=== PATIENT | male | born 1940 | race Caucasian/White ===

== ENCOUNTER 2019-06-11 11:36 | Outpatient (RCR) | payer MEDICARE, SELFPAY ==
--- NOTE | 2019-06-11 12:17 | PTOPEVAL ---
Thank you for referring this patient to [facility]. Please review, sign, date and return this plan of care [facility]. I agree with and certify that the following plan of care is medically necessary. Referring Physician Date Admitting Provider: Attending Provider: Leticia Handley MD Referring Provider: *PT Outpatient Evaluation Start: 06/11/19 11:54 Freq: Status: Active Protocol: Document 06/11/19 11:57 J (Rec: 06/11/19 12:16 [facility] [id number]) Therapy Assessment Status Assessment Status Assessment Status Evaluation Outpatient Past Medical History Past Medical History Reason Unable to Obtain see patient intake form Evaluation Information Problem Diagnosis parkinsons, unsteady gait Onset 06/05/19 Subjective Information patient reports he has been Query Text:As Reported By Patient/ alright lately. he reports no Family falls recently, but he has been to the MD who believes he could use some work on his balance and walking. he reports he does have parkinsons. he reports he does not use any assistive device for ambulation. Prior Level of Function Comments Additional Prior Level of Function patient reports he has been Comments diagnosed with parkinsons for about 1 year or so. he reports he may habe begun having symptoms a year prior. patient reports he has been limited or low energy lately. patient reports he does own a cane and has been using it infrequently on bad days or poor weather conditions. Pain Assessment Timing of Pain Assessment Timing of Pain Assessment Assessment Self Report Self Report Pain Level 0 Pain Score Pain Score 0: Self Report Lower Extremity Muscle Strength Testing Hip Strength Left Hip Flexion Strength 4 Good Hip Abduction Strength 4 Good Right Hip Flexion Strength 4 Good Hip Abduction Strength 4+ Good + Knee Strength Left Knee Flexion Strength 5 Normal Knee Extension Strength 4+ Good + Right Knee Flexion Strength 5 Normal Knee Extension Strength 4+ Good + Ankle Strength Left Ankle Dorsiflexion Strength 4+ Good + Ankle Plantarflexion Strength 4 Good Right Ankle Dorsiflexion Strength 5 Normal Ankle Plantarflexi
== END 2019-07-08 13:39 | disposition home or self-care (01) ==
LOC: CHSPT 11:36
PROVIDERS: PCP Internal Medicine; Visit Provider Internal Medicine
DX: G20 Parkinson's disease (principal); R26.81 Unsteadiness on feet
CPT/HCPCS: 97110; 97112; 97161; 97530

== ENCOUNTER 2019-11-11 07:03 | Outpatient (CLI) | payer MEDICARE, SELFPAY ==
[2019-11-11 07:19] LABS: Basophils Absolute Auto 0.06 K/mm3 (0.00-0.10); Eosinophils Absolute Auto 0.21 K/mm3 (0.02-0.50); Eosinophils Percent Auto 3.4 % (1.0-6.0); Hemoglobin 14.3 g/dL (12.4-15.3); Immature Granulocyte Absolute 0.03 K/mm3 (0.00-0.00); Immature Granulocyte Percent A 0.5 % (0.0-0.0); Lymphocytes Absolute Auto 2.33 K/mm3 (1.10-4.50); Mean Corpuscular HGB Conc 33.3 g/dL (32.0-36.0); Mean Corpuscular Hemoglobin 32.8 pg (27.0-31.0); Mean Corpuscular Volume 98.6 fL (78.0-102.0); Mean Platelet Volume 9.3 fl (8.7-11.0); Monocytes Absolute Auto 0.45 K/mm3 (0.10-0.90); Monocytes Percent Auto 7.3 % (2.0-11.0); Neutrophils Absolute Auto 3.1 K/mm3 (1.7-7.2); Neutrophils Percent Auto 49.8 % (50.0-70.0); Platelet Count Result 169 K/mm3 (150-420); Red Blood Count 4.36 M/mm3 (4.70-6.10); Red Cell Distribution Width 11.9 % (11.6-14.4); White Blood Count 6.1 K/mm3 (4.8-10.8)
[2019-11-11 07:20] LABS: Add Urine Microscopic? YES; Appearance Urine Clear (Clear); Bilirubin Urine Negative (Negative); Blood Urine Negative (Negative); Color Urine Yellow (Yellow); Glucose Urine UA Negative (Negative); Ketones Urine Negative (Negative); Leukocyte Esterase Ur Trace (Negative); Nitrate Urine Negative (Negative); Protein Urine Negative (Negative); pH Urine 7.5 (5.0-8.0)
[2019-11-11 07:28] LABS: Bacteria Urine Trace /hpf; Mucus Urine Few /lpf; RBC Urine 0-2 /hpf (0-2)
[2019-11-11 07:31] LABS: Hemoglobin A1C 5.6 % (<5.7)
[2019-11-11 09:19] LABS: Alanine Aminotransferase 37 U/L (16-63); Albumin Level 3.6 g/dL (3.4-5.0); Alkaline Phosphatase 77 U/L (46-116); Anion Gap 11.4 mmol/L (7-16); Aspartate Amino Transferase 26 U/L (15-37); Bilirubin,Total 0.5 mg/dL (0.00-1.00); Blood Urea Nitrogen 18 mg/dL (7-18); Calcium 8.7 mg/dL (8.5-10.1); Carbon Dioxide 29 mmol/L (21-32); Chloride 109 mmol/L (98-108); Cholesterol 130 mg/dL (0-200); Creatine Kinase 144 U/L (39-308); Estimated Glomerular Filt Rate > 60; Free T4 Free Thyroxine 0.91 ng/dL (0.76-1.46); Glucose 98 mg/dL (70-99); HDL Direct 40 mg/dL (40-60); LDL Cholesterol Calculated 73 mg/dL (<130); Osmolality Calculated 301 mOsm/kg (285-295); Potassium 4.4 mmol/L (3.5-5.1); Sodium 145 mmol/L (136-145); Thyroid Stimulating Hormone 2.68 uIU/mL (0.36-3.74); Total Protein 6.5 g/dL (6.4-8.2); Triglycerides 84 mg/dL (0-150)
== END 2019-11-11 07:04 | disposition home or self-care (01) ==
LOC: CHSLAB 07:05
PROVIDERS: PCP Internal Medicine; Visit Provider Internal Medicine
DX: E03.4 Atrophy of thyroid (acquired) (principal); I10 Essential (primary) hypertension; E78.2 Mixed hyperlipidemia; R73.01 Impaired fasting glucose; R53.83 Other fatigue
CPT/HCPCS: 36415; 80053; 80061; 81001; 82550; 83036; 84439; 84443; 85025

== ENCOUNTER 2019-11-27 14:05 | Outpatient (CLI) | payer MEDICARE, SELFPAY ==
[2019-11-27 15:03] LABS: BNP 27.9 pg/mL (0-100)
== END 2019-11-27 14:06 | disposition home or self-care (01) ==
PROVIDERS: PCP Internal Medicine; Visit Provider Internal Medicine
DX: I50.9 Heart failure, unspecified (principal)
CPT/HCPCS: 36415; 83880

== ENCOUNTER 2019-12-15 12:00 | Outpatient (CLI) | payer MEDICARE, SELFPAY ==
--- NOTE | ~2019-12-15 | US_ITS ---
EXAMINATION: US venous doppler [facility] DATE: 12/15/2019 12:34 INDICATION: Lower limb localized edema. TECHNIQUE: Grayscale ultrasound images without and with compression and Doppler ultrasound images of the bilateral lower extremity veins were obtained. COMPARISON: Ultrasound 03/13/2016 FINDINGS: The visualized portions of right common femoral vein, profunda (deep) femoral vein, femoral vein, pop liteal vein, peroneal veins, posterior tibial veins, and greater saphenous vein outflow are patent. The visualized portions of left common femoral vein, profunda femoral vein, femoral vein, popliteal v ein, peroneal veins, posterior tibial veins, and greater saphenous vein outflow are patent. IMPRESSION: 1. No deep venous thrombosis. Reviewed, dictated and finalized at location B.
== END 2019-12-15 12:01 | disposition home or self-care (01) ==
LOC: CHSIMG 12:02
PROVIDERS: PCP Internal Medicine; Visit Provider Internal Medicine Cardiovascular Disease
DX: R60.0 Localized edema (principal)
CPT/HCPCS: 93970

== ENCOUNTER 2020-05-06 07:07 | Outpatient (CLI) | payer MEDICARE, SELFPAY ==
[2020-05-06 07:16] LABS: Basophils Absolute Auto 0.07 K/mm3 (0.00-0.10); Basophils Percent Auto 1.2 % (0.0-1.0); Eosinophils Absolute Auto 0.19 K/mm3 (0.02-0.50); Eosinophils Percent Auto 3.3 % (1.0-6.0); Hematocrit 42.1 % (37.0-46.0); Immature Granulocyte Absolute 0.04 K/mm3 (0.00-0.00); Immature Granulocyte Percent A 0.7 % (0.0-0.0); Lymphocytes Absolute Auto 2.19 K/mm3 (1.10-4.50); Lymphocytes Percent Auto 37.8 % (18.0-42.0); Mean Corpuscular HGB Conc 33.3 g/dL (32.0-36.0); Mean Corpuscular Hemoglobin 31.9 pg (27.0-31.0); Mean Corpuscular Volume 95.9 fL (78.0-102.0); Monocytes Absolute Auto 0.36 K/mm3 (0.10-0.90); Monocytes Percent Auto 6.2 % (2.0-11.0); Neutrophils Percent Auto 50.8 % (50.0-70.0); Platelet Count Result 154 K/mm3 (150-420); Red Blood Count 4.39 M/mm3 (4.70-6.10); Red Cell Distribution Width 11.9 % (11.6-14.4); White Blood Count 5.8 K/mm3 (4.8-10.8)
[2020-05-06 07:21] LABS: Add Urine Microscopic? NO; Appearance Urine Clear (Clear); Bilirubin Urine Negative (Negative); Blood Urine Negative (Negative); Color Urine Yellow (Yellow); Glucose Urine UA Negative (Negative); Ketones Urine Negative (Negative); Leukocyte Esterase Ur Negative (Negative); Nitrate Urine Negative (Negative); Protein Urine Negative (Negative); Urobilinogen Urine 0.2 mg/dL (0.2-1.0)
[2020-05-06 07:31] LABS: Hemoglobin A1C 4.9 % (<5.7)
[2020-05-06 07:38] LABS: BNP 53.1 pg/mL (0-100)
[2020-05-06 08:03] LABS: Alanine Aminotransferase 40 U/L (16-63); Albumin Level 3.9 g/dL (3.4-5.0); Alkaline Phosphatase 86 U/L (46-116); Anion Gap 10 mmol/L (8-16); Aspartate Amino Transferase 21 U/L (15-37); Bilirubin,Total 0.6 mg/dL (0.00-1.00); Blood Urea Nitrogen 20 mg/dL (7-18); Calcium 8.9 mg/dL (8.5-10.1); Carbon Dioxide 25 mmol/L (21-32); Chloride 104 mmol/L (98-108); Cholesterol 131 mg/dL (0-200); Estimated Glomerular Filt Rate > 60; Free T3 2.39 pg/mL (2.18-3.98); Free T4 Free Thyroxine 0.94 ng/dL (0.76-1.46); Glucose 101 mg/dL (70-99); HDL Direct 43 mg/dL (40-60); LDL Cholesterol Calculated 69 mg/dL (<130); Osmolality Calculated 290 mOsm/kg (285-295); Potassium 4.1 mmol/L (3.5-5.1); Sodium 139 mmol/L (136-145); Thyroid Stimulating Hormone 3.33 uIU/mL (0.36-3.74); Triglycerides 97 mg/dL (0-150)
== END 2020-05-06 07:08 | disposition home or self-care (01) ==
LOC: CHSLAB 07:09
PROVIDERS: PCP Internal Medicine; Visit Provider Internal Medicine
DX: R53.82 Chronic fatigue, unspecified (principal); I10 Essential (primary) hypertension; E78.2 Mixed hyperlipidemia; E03.4 Atrophy of thyroid (acquired); R73.01 Impaired fasting glucose; R60.0 Localized edema; I50.9 Heart failure, unspecified
CPT/HCPCS: 36415; 80053; 80061; 81003; 83036; 83880; 84439; 84443; 84481; 85025

== ENCOUNTER 2020-05-18 10:48 | Outpatient (RCR) | payer MEDICARE, SELFPAY ==
--- NOTE | 2020-05-18 12:07 | PTOPEVAL ---
Thank you for referring Alli Eagle to [facility].? The patient is scheduled to be seen for therapy? ___3_x/week for 12 visits. Please review, sign, date and return this plan of care YUDI. I agree with and certify that the following plan of care is medically necessary. Referring Physician Date Admitting Provider: Attending Provider: Leticia Handley MD Referring Provider: *PT Outpatient Evaluation Start: 05/18/20 10:58 Freq: Status: Active Protocol: Document 05/18/20 11:01 [facility] (Rec: 05/18/20 12:07 [facility] [id number]) Therapy Assessment Status Assessment Status Assessment Status Evaluation Evaluation Information Problem Diagnosis PD, ataxia Onset 04/06/19 Subjective Information Pt. reports that he was Query Text:As Reported By Patient/ diagnosed with PD in [facility] of 2019. He reports that he has seen a steady decline in balance and strength over the past year. He states that he has had no recent falls, but states that he stumbles often. He states that his last fall is 2 years ago, after he tripped over an object. He states that his goal is to improve his balance and improve his walking. 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 reports that he does have Comments a shop at his home and tries to get into it everyday. He states that he does light yardwork, but fatigues easily and moves very slowly. Pain Assessment Self Report Self Report Pain Level 0 Pain Score Pain Score 0: Self Report Lower Extremity Muscle Strength Testing General Lower Extremity Strength Gross Lower Extremity Strength right hip flexion 5/5 left hip flexion 4+/5 right hip extensio
== END 2020-06-11 15:23 | disposition home or self-care (01) ==
LOC: CHSPT 10:48
PROVIDERS: PCP Internal Medicine; Visit Provider Internal Medicine
DX: G20 Parkinson's disease (principal); R27.0 Ataxia, unspecified
CPT/HCPCS: 97110; 97112; 97161; 97530

== ENCOUNTER 2020-05-25 09:07 | Outpatient (CLI) | payer MEDICARE, SELFPAY ==
[2020-05-25 10:09] LABS: Anion Gap 7 mmol/L (8-16); Blood Urea Nitrogen 21 mg/dL (7-18); Calcium 8.9 mg/dL (8.5-10.1); Carbon Dioxide 31 mmol/L (21-32); Chloride 102 mmol/L (98-108); Estimated Glomerular Filt Rate > 60; Glucose 88 mg/dL (70-99); Osmolality Calculated 292 mOsm/kg (285-295); Potassium 4.4 mmol/L (3.5-5.1); Sodium 140 mmol/L (136-145)
== END 2020-05-25 09:08 | disposition home or self-care (01) ==
LOC: CHSLAB 09:09
PROVIDERS: PCP Internal Medicine; Visit Provider Internal Medicine Cardiovascular Disease
DX: E11.59 Type 2 diabetes mellitus with other circulatory complications (principal); I10 Essential (primary) hypertension
CPT/HCPCS: 36415; 80048

== ENCOUNTER 2020-11-09 07:02 | Outpatient (CLI) | payer MEDICARE, SELFPAY ==
[2020-11-09 07:17] LABS: Basophils Absolute Auto 0.08 K/mm3 (0.00-0.10); Basophils Percent Auto 1.4 % (0.0-1.0); Eosinophils Absolute Auto 0.23 K/mm3 (0.02-0.50); Hematocrit 41.4 % (37.0-46.0); Immature Granulocyte Absolute 0.02 K/mm3 (0.00-0.00); Immature Granulocyte Percent A 0.3 % (0.0-0.0); Lymphocytes Absolute Auto 2.22 K/mm3 (1.10-4.50); Lymphocytes Percent Auto 38.4 % (18.0-42.0); Mean Corpuscular HGB Conc 33.8 g/dL (32.0-36.0); Mean Corpuscular Hemoglobin 32.4 pg (27.0-31.0); Mean Corpuscular Volume 95.8 fL (78.0-102.0); Monocytes Absolute Auto 0.41 K/mm3 (0.10-0.90); Monocytes Percent Auto 7.1 % (2.0-11.0); Neutrophils Absolute Auto 2.8 K/mm3 (1.7-7.2); Neutrophils Percent Auto 48.8 % (50.0-70.0); Platelet Count Result 162 K/mm3 (150-420); Red Blood Count 4.32 M/mm3 (4.70-6.10); Red Cell Distribution Width 11.9 % (11.6-14.4); White Blood Count 5.8 K/mm3 (4.8-10.8)
[2020-11-09 07:18] LABS: Add Urine Microscopic? YES; Appearance Urine Clear (Clear); Bilirubin Urine Negative (Negative); Blood Urine Negative (Negative); Color Urine Light Yellow (Yellow); Glucose Urine UA Negative (Negative); Ketones Urine Negative (Negative); Leukocyte Esterase Ur 1+ (Negative); Nitrate Urine Negative (Negative); Protein Urine Negative (Negative); pH Urine 7.5 (5.0-8.0)
[2020-11-09 07:22] LABS: Bacteria Urine Trace /hpf; RBC Urine None seen /hpf (0-2)
[2020-11-09 07:29] LABS: Creatinine Urine 158.06 mg/dL (40-278); MALB Creatinine Ratio 14.1 mg/g (0-30); Microalbumin Urine Random 22.4 mg/L
[2020-11-09 07:36] LABS: Hemoglobin A1C 5.1 % (<5.7)
[2020-11-09 08:22] LABS: Alanine Aminotransferase 27 U/L (16-63); Albumin Level 3.7 g/dL (3.4-5.0); Alkaline Phosphatase 90 U/L (46-116); Anion Gap 12 mmol/L (8-16); Aspartate Amino Transferase 17 U/L (15-37); Bilirubin,Total 0.5 mg/dL (0.00-1.00); Blood Urea Nitrogen 22 mg/dL (7-18); Calcium 8.9 mg/dL (8.5-10.1); Carbon Dioxide 26 mmol/L (21-32); Chloride 109 mmol/L (98-108); Cholesterol 107 mg/dL (0-200); Creatine Kinase 99 U/L (39-308); Estimated Glomerular Filt Rate > 60; Glucose 101 mg/dL (70-99); HDL Direct 34 mg/dL (40-60); LDL Cholesterol Calculated 57 mg/dL (<130); NT Pro B Type Natriuretic Pept 193 pg/mL (0-450); Osmolality Calculated 307 mOsm/kg (285-295); Potassium 4.2 mmol/L (3.5-5.1); Sodium 147 mmol/L (136-145); Total Protein 6.6 g/dL (6.4-8.2); Triglycerides 79 mg/dL (0-150)
== END 2020-11-09 07:03 | disposition home or self-care (01) ==
LOC: CHSLAB 07:04
PROVIDERS: PCP Internal Medicine; Visit Provider Internal Medicine
DX: G20 Parkinson's disease (principal); R73.01 Impaired fasting glucose; I10 Essential (primary) hypertension; E78.2 Mixed hyperlipidemia; E03.4 Atrophy of thyroid (acquired); I50.9 Heart failure, unspecified
CPT/HCPCS: 36415; 80053; 80061; 81001; 82043; 82550; 83036; 83880; 84439; 84443; 84481; 85025

== ENCOUNTER 2020-12-27 06:55 | Outpatient (CLI) | payer MEDICARE, SELFPAY ==
[2020-12-27 08:04] LABS: Anion Gap 10 mmol/L (8-16); Blood Urea Nitrogen 20 mg/dL (7-18); Calcium 8.8 mg/dL (8.5-10.1); Carbon Dioxide 26 mmol/L (21-32); Chloride 105 mmol/L (98-108); Estimated Glomerular Filt Rate > 60; Glucose 96 mg/dL (70-99); Osmolality Calculated 294 mOsm/kg (285-295); Potassium 4.3 mmol/L (3.5-5.1); Sodium 141 mmol/L (136-145)
== END 2020-12-27 06:56 | disposition home or self-care (01) ==
LOC: CHSLAB 06:57
PROVIDERS: PCP Internal Medicine; Visit Provider Internal Medicine
DX: I10 Essential (primary) hypertension (principal)
CPT/HCPCS: 36415; 80048

== ENCOUNTER 2021-04-12 12:56 | Outpatient (CLI) | payer MEDICARE, SELFPAY ==
--- NOTE | ~2021-04-12 | XR_ITS ---
EXAMINATION: XR hip RT min 2V EXAM DATE: 04/12/2021 13:30 INDICATION: R hip pain, leg edema for 2 weeks starting at the lower back. TECHNIQUE: Right hip frontal, crosstable lateral and 'frog-leg' projections for interpretation. Jean Carlos rison is made to prior examination from 12/14/2015. FINDINGS: Smooth right hip femoral head contour, no radiographic evidence of avascular necrosis. The re is moderate primary osteoarthritis. Scattered vascular calcifications, arterial sclerosis. There is right hip replacement hardware. IMPRESSION: Moderate right hip osteoarthritis. Reviewed, dictated and finalized at location A. N BARREL FILLER
[2021-04-12 13:09] LABS: Basophils Absolute Auto 0.09 K/mm3 (0.00-0.10); Basophils Percent Auto 1.3 % (0.0-1.0); Eosinophils Absolute Auto 0.18 K/mm3 (0.02-0.50); Eosinophils Percent Auto 2.7 % (1.0-6.0); Hematocrit 40.2 % (37.0-46.0); Hemoglobin 13.8 g/dL (12.4-15.3); Immature Granulocyte Absolute 0.02 K/mm3 (0.00-0.00); Immature Granulocyte Percent A 0.3 % (0.0-0.0); Lymphocytes Absolute Auto 1.91 K/mm3 (1.10-4.50); Lymphocytes Percent Auto 28.3 % (18.0-42.0); Mean Corpuscular HGB Conc 34.3 g/dL (32.0-36.0); Mean Corpuscular Hemoglobin 32.4 pg (27.0-31.0); Mean Corpuscular Volume 94.4 fL (78.0-102.0); Mean Platelet Volume 9.2 fl (8.7-11.0); Monocytes Absolute Auto 0.38 K/mm3 (0.10-0.90); Monocytes Percent Auto 5.6 % (2.0-11.0); Neutrophils Absolute Auto 4.2 K/mm3 (1.7-7.2); Neutrophils Percent Auto 61.8 % (50.0-70.0); Platelet Count Result 180 K/mm3 (150-420); Red Blood Count 4.26 M/mm3 (4.70-6.10); Red Cell Distribution Width 12.1 % (11.6-14.4); White Blood Count 6.8 K/mm3 (4.8-10.8)
[2021-04-12 14:23] LABS: Alanine Aminotransferase 14 U/L (16-63); Albumin Level 3.6 g/dL (3.4-5.0); Alkaline Phosphatase 94 U/L (46-116); Anion Gap 10 mmol/L (8-16); Aspartate Amino Transferase 16 U/L (15-37); Bilirubin,Total 0.5 mg/dL (0.00-1.00); Blood Urea Nitrogen 19 mg/dL (7-18); Calcium 8.6 mg/dL (8.5-10.1); Carbon Dioxide 29 mmol/L (21-32); Chloride 103 mmol/L (98-108); Estimated Glomerular Filt Rate > 60; Free T3 2.56 pg/mL (2.18-3.98); Free T4 Free Thyroxine 0.84 ng/dL (0.76-1.46); Glucose 120 mg/dL (70-99); Osmolality Calculated 297 mOsm/kg (285-295); Potassium 4.2 mmol/L (3.5-5.1); Sodium 142 mmol/L (136-145); Thyroid Stimulating Hormone 3.38 uIU/mL (0.36-3.74); Total Protein 6.7 g/dL (6.4-8.2)
== END 2021-04-12 12:57 | disposition home or self-care (01) ==
LOC: CHSIMG 12:58
PROVIDERS: PCP Internal Medicine; Visit Provider Internal Medicine
DX: R60.0 Localized edema (principal); E03.9 Hypothyroidism, unspecified; M25.551 Pain in right hip
CPT/HCPCS: 36415; 73502; 80053; 84439; 84443; 84481; 85025

== ENCOUNTER 2021-05-24 07:22 | Outpatient (CLI) | payer MEDICARE, SELFPAY ==
[2021-05-24 07:35] LABS: Basophils Absolute Auto 0.07 K/mm3 (0.00-0.10); Basophils Percent Auto 1.2 % (0.0-1.0); Eosinophils Absolute Auto 0.23 K/mm3 (0.02-0.50); Eosinophils Percent Auto 4.1 % (1.0-6.0); Hematocrit 43.9 % (37.0-46.0); Hemoglobin 14.6 g/dL (12.4-15.3); Immature Granulocyte Absolute 0.02 K/mm3 (0.00-0.00); Immature Granulocyte Percent A 0.4 % (0.0-0.0); Mean Corpuscular HGB Conc 33.3 g/dL (32.0-36.0); Mean Corpuscular Hemoglobin 32.2 pg (27.0-31.0); Mean Corpuscular Volume 96.9 fL (78.0-102.0); Mean Platelet Volume 9.3 fl (8.7-11.0); Monocytes Absolute Auto 0.46 K/mm3 (0.10-0.90); Monocytes Percent Auto 8.1 % (2.0-11.0); Neutrophils Absolute Auto 3.2 K/mm3 (1.7-7.2); Neutrophils Percent Auto 56.2 % (50.0-70.0); Platelet Count Result 161 K/mm3 (150-420); Red Blood Count 4.53 M/mm3 (4.70-6.10); Red Cell Distribution Width 11.8 % (11.6-14.4); White Blood Count 5.7 K/mm3 (4.8-10.8)
[2021-05-24 07:38] LABS: Add Urine Microscopic? YES; Appearance Urine Clear (Clear); Bilirubin Urine Negative (Negative); Blood Urine Negative (Negative); Color Urine Yellow (Yellow); Glucose Urine UA Negative (Negative); Ketones Urine Negative (Negative); Leukocyte Esterase Ur Trace (Negative); Nitrate Urine Negative (Negative); Protein Urine Trace (Negative); Urobilinogen Urine 0.2 mg/dL (0.2-1.0)
[2021-05-24 07:48] LABS: Hemoglobin A1C 5.2 % (<5.7)
[2021-05-24 08:07] LABS: Bacteria Urine None seen /hpf; Mucus Urine Rare /lpf; RBC Urine None seen /hpf (0-2); WBC Urine 0-3 /hpf (0-3)
[2021-05-24 09:14] LABS: Alanine Aminotransferase 28 U/L (16-63); Albumin Level 3.7 g/dL (3.4-5.0); Alkaline Phosphatase 93 U/L (46-116); Anion Gap 7 mmol/L (8-16); Aspartate Amino Transferase 16 U/L (15-37); Bilirubin,Total 0.5 mg/dL (0.00-1.00); Blood Urea Nitrogen 22 mg/dL (7-18); Calcium 8.9 mg/dL (8.5-10.1); Carbon Dioxide 28 mmol/L (21-32); Chloride 108 mmol/L (98-108); Cholesterol 117 mg/dL (0-200); Creatine Kinase 102 U/L (39-308); Estimated Glomerular Filt Rate > 60; Free T3 2.28 pg/mL (2.18-3.98); Free T4 Free Thyroxine 0.92 ng/dL (0.76-1.46); Glucose 100 mg/dL (70-99); HDL Direct 40 mg/dL (40-60); LDL Cholesterol Calculated 63 mg/dL (<130); Osmolality Calculated 299 mOsm/kg (285-295); Potassium 4.5 mmol/L (3.5-5.1); Sodium 143 mmol/L (136-145); Thyroid Stimulating Hormone 2.63 uIU/mL (0.36-3.74); Total Protein 6.8 g/dL (6.4-8.2); Triglycerides 69 mg/dL (0-150)
== END 2021-05-24 07:23 | disposition home or self-care (01) ==
LOC: CHSLAB 07:24
PROVIDERS: PCP Internal Medicine; Visit Provider Internal Medicine
DX: R73.01 Impaired fasting glucose (principal); E78.2 Mixed hyperlipidemia; I10 Essential (primary) hypertension; E03.4 Atrophy of thyroid (acquired)
CPT/HCPCS: 36415; 80053; 80061; 81001; 82550; 83036; 84439; 84443; 84481; 85025

== ENCOUNTER 2021-05-31 14:21 | Outpatient (CLI) | payer MEDICARE, SELFPAY ==
--- NOTE | ~2021-05-31 | XR_ITS ---
XR lumbar spine 2-3V 05/31/2021 15:02 Indication: Low back pain Procedure: 3 views lumbar spine Comparison: 09/26/2010 Findings: There is loss of disc height at all lumbar levels. There is multilevel facet hypertrophy. T here are prominent marginal osteophytes at multiple levels. There is grade 1 degenerative spondylolis thesis at L4-5. There is atherosclerosis of the aorta. Sacral foramen are symmetric. There is atheros clerosis of the aorta. Impression: 1: Severe lumbar spondylosis. Reviewed, dictated and finalized at location B. BOLTER Impression: 1: Severe lumbar spondylosis.
--- NOTE | ~2021-05-31 | XR_ITS ---
XR sacroiliac joints min 3V DATE: 05/31/2021 15:02 INDICATION: Low back pain. Sciatica. TECHNIQUE: 4 views COMPARISON: None FINDINGS: There is bony bridging along the superior aspect of the pubic symphysis. The sacral iliac joints are normal. No erosive change or ankylosis. Status post left total hip arthroplasty. Degenerative disc disease at L3-4, L4-5 and L5-S1. 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 Reviewed, dictated and finalized at location A. H COLORS EXAMINER
== END 2021-05-31 14:22 | disposition home or self-care (01) ==
LOC: CHSIMG 14:23
PROVIDERS: PCP Internal Medicine; Visit Provider Internal Medicine
DX: M54.50 Low back pain, unspecified (principal)
CPT/HCPCS: 72100; 72202

== ENCOUNTER 2021-06-04 09:38 | Outpatient (CLI) | payer MEDICARE, SELFPAY ==
--- NOTE | ~2021-06-04 | MR_ITS ---
EXAMINATION: MR lumbar spine wo con DATE: 06/04/2021 10:21 INDICATION: Low back pain. TECHNIQUE: Magnetic resonance imaging (MRI) of the lumbar spine was performed without intravenous con trast. Sequences included sagittal T2-weighted FSE, sagittal T2-weighted FS FSE, sagittal T1-weighted FSE, and axial T2-weighted FSE. COMPARISON: Lumbar spine radiographs 05/31/2021 FINDINGS: There is 4 degrees levocurvature of lumbar spine. There is 3 mm anterolisthesis of L4 on L5 . Vertebral body heights are normal. There is severely decreased disc height at L2-L3 and L3-L4, mild ly decreased disc height at L4-L5, and severely decreased disc height at L5-S1 with endplate remodeli ng. The distal spinal cord signal intensity is normal. The conus medullaris is at L2. There are cysts in the kidneys including peripelvic cysts. The following disc levels are specifically discussed: L1-L2: The disc is mildly bulging. There is mild bilateral facet joint osteoarthritis. There is mild bilateral neural foraminal stenosis. There is no central canal stenosis. L2-L3: The disc is bulging and has an annular fissure. There is severe bilateral facet joint osteoart hritis. There is mild right and moderate left neural foraminal stenosis. There is mild central canal stenosis. L3-L4: The disc is bulging and has an annular fissure. There is severe bilateral facet joint osteoart hritis. There is mild right and moderate left neural foraminal stenosis. There is mild central canal stenosis. L4-L5: The disc is bulging. There is severe bilateral facet joint osteoarthritis. There is moderate r ight and mild left neural foraminal stenosis. There is mild central canal stenosis. There is severe s tenosis of right lateral recess. L5-S1: The disc is bulging and has an annular fissure. There is severe bilateral facet joint osteoart hritis. There is mild bilateral neural foraminal stenosis. There is mild central canal stenosis. IMPRESSION: 1. Severe lumbar spondylosis. Reviewed, dictated and finalized at location A. SINGER
== END 2021-06-04 09:39 | disposition home or self-care (01) ==
LOC: CHSIMG 09:39
PROVIDERS: PCP Internal Medicine; Visit Provider Internal Medicine
DX: M54.50 Low back pain, unspecified (principal)
CPT/HCPCS: 72148

== ENCOUNTER 2021-07-15 10:57 | Emergency (ER) | payer MEDICARE, SELFPAY ==
--- NOTE | ~2021-07-15 | XR_ITS ---
EXAMINATION: XR lumbar spine 2-3V DATE: 07/15/2021 11:52 INDICATION: Low back pain. TECHNIQUE: 3 views of lumbar spine were obtained. COMPARISON: Lumbar spine radiographs 05/31/2021 FINDINGS: There is 3 degrees dextrocurvature of lumbar spine. There is 3 mm anterolisthesis of L4 on L5. Vertebral body heights are normal. There is mildly decreased disc height at L2-L3 and L4-L5 and s everely decreased disc height at L3-L4 and L5-S1. There are endplate osteophytes at all levels. There is multilevel severe facet joint osteoarthritis. There is a total left hip arthroplasty. IMPRESSION: 1. Severe lumbar spondylosis. Reviewed, dictated and finalized at location A. SACTION COORDINATOR
--- NOTE | 2021-07-15 11:17 | ED.GENADULT ---
HPI - General Adult General Chief complaint: Back Pain/Injury Stated complaint: back pain Source: patient and family Mode of arrival: ambulatory Limitations: no limitations History of Present Illness HPI narrative: Alli is a 80M with a PMH of hypothyroidism, HTN, BPH, CT and chronic back pain with surgery 15 years ago that presented to the ED with back pain. His chronic pain got worse and he cannot get it to go away. He even took 2 10/325 [place] tabs which did not help. It is worse with twisting and better with sitting still. He denies any loss of bowel or bladder control or lower extremity weakness or paralysis. Related Data Home Medications Medication Instructions Recorded Confirmed atorvastatin 20 mg DAILY 07/15/21 07/15/21 bimatoprost [Lumigan] 1 drp HS 07/15/21 07/15/21 carbidopa-levodopa 1 tablet QID 07/15/21 07/15/21 clopidogrel 75 mg DAILY 07/15/21 07/15/21 furosemide 20 mg DAILY 07/15/21 07/15/21 hydrocodone-acetaminophen 1 tablet Q4-6H 07/15/21 07/15/21 levothyroxine 75 mcg DAILY 07/15/21 07/15/21 metoprolol tartrate 12.5 mg BID 07/15/21 07/15/21 pramipexole 1 mg BID 07/15/21 07/15/21 terazosin 10 mg DAILY 07/15/21 07/15/21 Allergies Allergy/AdvReac Type Severity Reaction Status Date / Time No Known Allergies Allergy Verified 07/15/21 11:11 Review of Systems Constitutional: Constitutional: Reports no additional constitutional complaints Eyes: Eyes: Reports no additional eye complaints ENT: Reports system reviewed and no additional complaints, except as documented Cardiovascular: Cardiovascular: Reports no additional cardiovascular complaints Respiratory: Respiratory: Reports no additional respiratory complaints Gastrointestinal: Gastrointestinal: Reports no additional gastrointestinal complaints Genitourinary: Genitourinary: Reports no additional male genitourinary complaints Musculoskeletal: Musculoskeletal: Reports as per HPI Integumentary/Breasts: Skin/Breast: Reports system reviewed and no additional complaints, except as docu Neurologic: Reports system reviewed and no additional complaints, except as documented Psychiatric: Psychiatric: Reports no additional psychiatric complaints Endocrine: Endocrine: Reports no additional endocrine complaints Hematologic/Lymphatic: Hematologic/Lymphatic: Reports no additional hematologic/lymphatic complaints Allergic/Immunologic: Allergic/Immunologic: Reports no additional allergic/immunologic complaints [facility] Family History Family History Other Cerebrovascular accident Family history of arthritis Hypertension Social History Social History Smoking status: Never smoker Exam Const: General: no acute distress and alert Orientation/consciousness: patient oriented x3 Limitations: No altered mental status HENMT: Head: normal to inspection Other: atraumatic Eyes: Pupils: Equal, round and reactive pupils present Neck: Neck: normal visual inspection Chest: Chest palpation & inspection: normal inspection of the chest Resp: Effort & Inspection: normal respiratory effort Cardio: Rate: regular rate Back/Spine/Pelvis: Back: no CVA tenderness Other: No midline tenderness. She had hypertonic musculature on the paraspinal muscles particularly in the right lumbar region. Skin: General skin exam: normal color Rashes: no rashes Neuro: General: patient oriented x3 and moves all extremities Other: 5/5 strength throughout the lower extremities. No sensory deficits. Extrem: General: normal to inspection Psych: Mental Status: mental status grossly normal Course Course Emergency Course: EXAMINATION: XR lumbar spine 2-3V DATE: 07/15/2021 11:52 INDICATION: Low back pain. TECHNIQUE: 3 views of lumbar spine were obtained. COMPARISON: Lumbar spine radiographs 05/31/2021 FINDINGS: There is 3 degrees dextrocurvature of lumbar spine. T
[2021-07-15 11:21] VITALS: BP 158/83; PULSE 72; RESP 18; TEMP 36.3; O2SAT 98
[2021-07-15] MEDS: KETOROLAC 30 MG/ML VIAL (*BKC) IM (11:37)
[2021-07-15] MEDS: CYCLOBENZAPRINE HCL 10 MG TABLET PO (11:38)
--- NOTE | 2021-07-15 12:24 | PC.NURSE ---
Pt ambulatory to nurse's station and back to room without difficulty. Pt moving slowly, but states that he is able to move easier since the medications were administered. ERP aware.
[2021-07-15 12:32] VITALS: BP 120/66; PULSE 70; RESP 16; TEMP 36.3; O2SAT 96
== END 2021-07-15 12:38 | disposition home or self-care (01) ==
PROVIDERS: Emergency Provider Family Medicine; PCP Internal Medicine
DX: M47.9 Spondylosis, unspecified (principal); I10 Essential (primary) hypertension
CPT/HCPCS: 72100; 96372; 99283; A9270; J1885

== ENCOUNTER 2021-07-19 07:59 | Outpatient (RCR) | payer MEDICARE, SELFPAY ==
--- NOTE | 2021-07-19 09:01 | PTOPEVAL ---
Thank you for referring Alli Eagle to [facility].? The patient is scheduled to be seen for therapy? __3__x/week for 12 visits. Please review, sign, date and return this plan of care YUDI. I agree with and certify that the following plan of care is medically necessary. Referring Physician Date Admitting Provider: Attending Provider: Leticia Handley MD Referring Provider: *PT Outpatient Evaluation Start: 07/19/21 07:53 Freq: Status: Active Protocol: Document 07/19/21 07:53 [facility] (Rec: 07/19/21 09:00 [facility] [id number]) Therapy Assessment Status Assessment Status Assessment Status Evaluation Evaluation Information Problem Diagnosis generalized weakness, unsteady gait Onset 06/16/21 Subjective Information Pt. reports that he has Query Text:As Reported By Patient/ recently noticed some Family unsteadiness with walking. He states that he has also developed some recent pain into the low back on the right side and into the buttock. He reports that back pain makes walking difficult. He has not had any recent falls but has frequent episodes of LOB. He reports that he is currently using a cane and has been for several months. He reports that he has concern regarding both balance and pain. He reports that his goal is to improve his walking and balance and decrease his pain. Prior Level of Function Activity Level (Last 3 Months) Occupation retired Hand Dominance Right Activity of Daily Living Ability Independent Indoor/Home Mobility Independent Community Mobility Independent Stairs Ability Independent Functional Cognition (Planning, Shopping Independent , Taking Medications) Cooking Yes Cleaning Yes Laundry Yes Shopping Yes Driving Yes Comments Additional Prior Level of Function He reports that his has Comments been helping with putting his socks on over the past week. Pain Assessment Timing of Pain Assessment Timing of Pain Assessment Pre-Treatment Pain Scale Pain Scale Used
--- NOTE | 2021-08-24 17:05 | PTOPEVAL ---
Thank you for referring Alli Eagle to [facility].? The patient is scheduled to be seen for therapy? ____x/week for ___ weeks. Please review, sign, date and return this plan of care YUDI. I agree with and certify that the following plan of care is medically necessary. Referring Physician Date Admitting Provider: Attending Provider: Leticia Handley MD Referring Provider: *PT Outpatient Evaluation Start: 07/19/21 07:53 Freq: Status: Active Protocol: Document 08/23/21 10:00 [facility] (Rec: 08/24/21 17:02 [facility] [id number]) Therapy Assessment Status Assessment Status Assessment Status Discharge Evaluation Information Problem Diagnosis generalized weakness, unsteady gait Onset 06/16/21 Subjective Information patient continues to report no Query Text:As Reported By Patient/ falls. he has not been using Family a cane or any AD for ambulation as he says he will forget it where he is standing . he reports he is ready to DC therapy and return to fall prevention class. Pain Assessment Timing of Pain Assessment Timing of Pain Assessment Assessment Pain Scale Pain Scale Used Numeric (1 - 10) Self Report Pain Assessment Lower Back Reported Pain Level 2 Pain Score Pain Score 2: Self Report Interventions Used Interventions Used By Clinicians Activity or ADL's,Education, Electrical Stimulation, Exercise,Heat Lower Extremity Muscle Strength Testing General Lower Extremity Strength Gross Lower Extremity Strength -bilateral hip flexion 4+/5 -bilateral hip abduction 4-/5 -bilateral knee flexion 5/5 -bilateral knee extension 4+/5 -bilateral ankle dorsiflexion 5/5 Balance Assessment Tinetti Balance Assessment Sitting Balance Steady, safe Ability to Arise Able, uses arms to help Attempts to Arise Arises on 1st attempt Immediate Standing Balance Steady w/o support Standing Balance Narrow stance w/o support Nudged Response Steady Standing with Eyes Closed Steady Step Pattern Turning 360 Degrees Discontinuous steps Stability Turning 360 Degrees Steady Sitting Down Uses arms or unsteady Initiation of Gait Hesitancy, mult. attempts Right Foot Step Length Does pass stance foot Right Foot Step Height Completely clears floor Left Foot Step Length Does p
== END 2021-08-23 11:14 | disposition home or self-care (01) ==
LOC: CHSPT 07:59
PROVIDERS: PCP Internal Medicine; Visit Provider Internal Medicine
DX: R53.1 Weakness (principal); R26.81 Unsteadiness on feet
CPT/HCPCS: 97014; 97110; 97112; 97140; 97161; 97530; G0283

== ENCOUNTER 2021-11-10 07:11 | Outpatient (CLI) | payer MEDICARE, SELFPAY ==
[2021-11-10 07:27] LABS: Basophils Absolute Auto 0.07 K/mm3 (0.00-0.10); Basophils Percent Auto 1.1 % (0.0-1.0); Eosinophils Absolute Auto 0.19 K/mm3 (0.02-0.50); Hematocrit 40.3 % (37.0-46.0); Hemoglobin 13.9 g/dL (12.4-15.3); Immature Granulocyte Absolute 0.03 K/mm3 (0.00-0.00); Immature Granulocyte Percent A 0.5 % (0.0-0.0); Lymphocytes Absolute Auto 1.56 K/mm3 (1.10-4.50); Lymphocytes Percent Auto 24.9 % (18.0-42.0); Mean Corpuscular HGB Conc 34.5 g/dL (32.0-36.0); Mean Corpuscular Hemoglobin 33.1 pg (27.0-31.0); Mean Platelet Volume 9.3 fl (8.7-11.0); Monocytes Absolute Auto 0.44 K/mm3 (0.10-0.90); Neutrophils Percent Auto 63.5 % (50.0-70.0); Platelet Count Result 170 K/mm3 (150-420); Red Cell Distribution Width 11.9 % (11.6-14.4); White Blood Count 6.3 K/mm3 (4.8-10.8)
[2021-11-10 07:29] LABS: Add Urine Microscopic? YES; Appearance Urine Clear (Clear); Bilirubin Urine Negative (Negative); Blood Urine Negative (Negative); Color Urine Light Yellow (Yellow); Glucose Urine UA Negative (Negative); Ketones Urine Negative (Negative); Leukocyte Esterase Ur Trace (Negative); Nitrate Urine Negative (Negative); Protein Urine Negative (Negative); Urobilinogen Urine 0.2 mg/dL (0.2-1.0)
[2021-11-10 07:47] LABS: Bacteria Urine Trace /hpf; RBC Urine None seen /hpf (0-2); WBC Urine 0-3 /hpf (0-3)
[2021-11-10 07:56] LABS: Alanine Aminotransferase 25 U/L (16-63); Albumin Level 3.5 g/dL (3.4-5.0); Alkaline Phosphatase 98 U/L (46-116); Anion Gap 5 mmol/L (8-16); Aspartate Amino Transferase 15 U/L (15-37); Bilirubin,Total 0.7 mg/dL (0.00-1.00); Blood Urea Nitrogen 20 mg/dL (7-18); Calcium 8.8 mg/dL (8.5-10.1); Carbon Dioxide 29 mmol/L (21-32); Chloride 106 mmol/L (98-108); Cholesterol 111 mg/dL (0-200); Creatine Kinase 103 U/L (39-308); Estimated Glomerular Filt Rate > 60; Free T3 2.45 pg/mL (2.18-3.98); Free T4 Free Thyroxine 1.11 ng/dL (0.76-1.46); Glucose 110 mg/dL (70-99); HDL Direct 37 mg/dL (40-60); LDL Cholesterol Calculated 53 mg/dL (<130); Osmolality Calculated 293 mOsm/kg (285-295); Potassium 4.3 mmol/L (3.5-5.1); Sodium 140 mmol/L (136-145); Total Protein 7.2 g/dL (6.4-8.2); Triglycerides 106 mg/dL (0-150)
== END 2021-11-10 07:12 | disposition home or self-care (01) ==
LOC: CHSLAB 07:13
PROVIDERS: PCP Internal Medicine; Visit Provider Internal Medicine
DX: E78.2 Mixed hyperlipidemia (principal); I10 Essential (primary) hypertension; R53.82 Chronic fatigue, unspecified; E03.4 Atrophy of thyroid (acquired); R60.0 Localized edema
CPT/HCPCS: 36415; 80053; 80061; 81001; 82550; 84439; 84443; 84481; 85025

== ENCOUNTER 2021-12-01 15:01 | Outpatient (CLI) | payer MEDICARE, SELFPAY ==
--- NOTE | ~2021-12-01 | XR_ITS ---
XR shoulder LT min 2V 12/01/2021 15:26 Indication: Left shoulder pain Procedure: 4 views left shoulder Comparison: No prior studies for comparison. Findings: There is polyarticular osteoarthritis of the left shoulder, most advanced at the glenohumer al joint. Osteopenia. No fracture or traumatic malalignment. 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 Reviewed, dictated and finalized at location A. 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
--- NOTE | ~2021-12-01 | XR_ITS ---
XR shoulder RT min 2V 12/01/2021 15:26 Indication: Right shoulder pain Procedure: 4 views right shoulder Comparison: 07/13/2017 and 03/20/2014 Findings: There has been progression of severe polyarticular osteoarthritis, most advanced at the gle nohumeral joint. There are loose bodies inferior to the glenohumeral joint. No acute fracture or trau matic malalignment. Visualized lung parenchyma is unremarkable. Impression: 1: Progression of severe polyarticular osteoarthritis of the right shoulder. Reviewed, dictated and finalized at location A. Impression: 1: Progression of severe polyarticular osteoarthritis of the right shoulder.
--- NOTE | ~2021-12-01 | XR_ITS ---
XR_[id number]_CR 12/01/2021 15:26 Indication: Neck pain Procedure: 3 views cervical spine Comparison: 11/06/2014 Findings: There is reversal of cervical lordosis. There is degenerative anterolisthesis at C3-4 and C 4-5. There is disc narrowing at C4-5 through C6-7. There is multilevel uncinate and facet hypertrophy . Lung apices are normal. Odontoid process within normal limits. No prevertebral soft tissue swelling . Impression: 1: Moderate-severe cervical spondylosis which has progressed since prior examination. Reviewed, dictated and finalized at location A. Impression: 1: Moderate-severe cervical spondylosis which has progressed since prior examin ation.
== END 2021-12-01 15:02 | disposition home or self-care (01) ==
LOC: CHSIMG 15:03
PROVIDERS: PCP Internal Medicine; Visit Provider Internal Medicine
DX: M54.2 Cervicalgia (principal); M25.512 Pain in left shoulder; M25.511 Pain in right shoulder; M19.012 Primary osteoarthritis, left shoulder; M19.011 Primary osteoarthritis, right shoulder
CPT/HCPCS: 72040; 73030

== ENCOUNTER 2021-12-05 08:24 | Outpatient (RCR) | payer MEDICARE, SELFPAY ==
--- NOTE | 2021-12-05 08:21 | PTOPEVAL ---
Thank you for referring Alli Eagle to [facility].? The patient is scheduled to be seen for therapy? 2x/week for 10 visits. Please review, sign, date and return this plan of care YUDI. I agree with and certify that the following plan of care is medically necessary. Referring Physician Date Admitting Provider: Attending Provider: Leticia Handley MD Referring Provider: *PT Outpatient Evaluation Start: 12/05/21 06:54 Freq: Status: Active Protocol: Document 12/05/21 06:55 [facility] (Rec: 12/05/21 08:18 [facility] [id number]) Therapy Assessment Status Assessment Status Assessment Status Evaluation Evaluation Information Problem Diagnosis Neck pain and bilateral shoulder pain Onset 11/04/2021 Subjective Information Pt reports chronic shoulder Query Text:As Reported By Patient/ pain and acute onset of neck Family pain with insidious onset. Shoulder pain has been present for the past few years, while neck pain has been present over the past few weeks. Recently the neck has been more painful than the shoulders. Reports increased pain with rotating his head and when lying down. Reports short relief with heating pads and warm showers. Denies headaches, N/T. Reports some arm weakness that has been worsening over the past few years. Sleep is unaffected as he is sleeping in recliner. Likes to work in his shop. Able to do everything he needs to do but is painful and needs to do it more slowly. 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
--- NOTE | 2022-01-05 15:03 | PTOPPROG ---
Evaluation Information Assessment Status Evaluation Diagnosis Neck pain and bilateral shoulder pain Onset 11/04/2021 Subjective Information Pt still reports continued discomfort when rotating his head and lifting his arms. He can tell that he is feeling a lot better but he is not great yet. Assessment PT Clinical Summary Pt presents to physical therapy with improvements in neck mobility, pain, and deep neck flexor endurance since his initial evaluation. He still presents with decreased shoulder and cervical mobility, decreased strength, and altered posture which makes it more difficult for him to work in his shop. He will benefit from additional skilled PT to further facilitate symptom relief, improve the aforementioned impairments, and return to functional and recreational activities. Plan of Care PT Services Indicated Yes Treatment Frequency and 1-2x week for 6 visits Duration These treatments will address the objective and functional deficits as defined above. The patient will be advanced safely and appropriately in order for the patient to progress towards his/her prior level of function. Additional exercises will be introduced and as well as a comprehensive home exercise program upon discharge, if needed, ?to ensure carryover of functional gains achieved in the clinic. This treatment plan has been reviewed and agreement upon by the patient.
--- NOTE | 2022-01-26 14:27 | PTOPDC ---
Assessment and note entered by Jazmyne Shields, PT Evaluation Information Assessment Status Discharge Diagnosis cervical and bilateral shoulder pain Onset 11/04/21 Subjective Information Alli reports his neck and shoulder pain is slightly better overall since initiating PT however, he continues to have pain. He notes difficulty lifting overhead to put stuff away in his shop. He is able to perform ADLs. He feels he improved 50-60% overall. He would like to continue PT independently with his home exercises. Reported Pain Level Pain Score 3: Self Report Assessment PT Clinical Summary Alli Eagle has completed 16 physical therapy visits for neck and bilateral shoulder pain. He is reporting a 50-60% overall improvement in neck and bilateral shoulder pain since initiating PT. He objectively demonstrates improved cervical and bilateral shoulder ROM. He does continue to have deficits in cervical and bilateral shoulder AROM as well as bilateral shoulder strength. He will be discharged to an independent home exercise program at this time. Plan of Care Interventions Electrical Stimulation,Hot Pack/Cold Pack,Manual Therapy,Patient/Caregiver Educati,Therapeutic Exercise Treatment Frequency and Discharge. Duration
== END 2022-01-26 11:13 | disposition home or self-care (01) ==
LOC: CHSPT 08:24
PROVIDERS: PCP Internal Medicine; Visit Provider Internal Medicine
DX: M54.2 Cervicalgia (principal); M25.512 Pain in left shoulder; M25.511 Pain in right shoulder
CPT/HCPCS: 97014; 97110; 97140; 97161; G0283

== ENCOUNTER 2022-05-03 14:14 | Emergency (ER) | payer MEDICARE, SELFPAY ==
--- NOTE | ~2022-05-03 | XR_ITS ---
EXAMINATION: [id number] INDICATION: Upper abdominal pain TECHNIQUE: A frontal view of the chest and 3 views of the left ribs were obtained. COMPARISON: None. FINDINGS: The lungs are free of acute opacities. No pleural effusion or pneumothorax. The cardiomedia stinal silhouette is normal. There are acute, minimally displaced posterior fractures of the left fif th and sixth ribs. IMPRESSION: 1. Acute, minimally displaced posterior fractures of the left fifth and sixth ribs. Reviewed, dictated and finalized at location B. [facility] FELLER IMPRESSION: 1. Acute, minimally displaced posterior fractures of the left fifth and sixth r ibs.
[2022-05-03 14:16] VITALS: BP 177/94; PULSE 77; RESP 16; TEMP 37; O2SAT 99
--- NOTE | 2022-05-03 14:26 | ED.GENADULT ---
HPI - General Adult General Chief complaint: Fall Stated complaint: Chest pain from fall Time Seen by Provider: 05/03/22 14:21 History of Present Illness HPI narrative: Alli is a 80M with a PMH of hypothyroidism, HTN, BPH, NV and chronic back pain that presented to the ED after a fall. He was walking and tripped on a shovel. He fell on his chest and has pain in his left lateral chest. He had no other injuries during the fall. There is no dyspnea. Related Data Home Medications Medication Instructions Recorded Confirmed atorvastatin 20 mg tablet 20 mg DAILY 07/15/21 05/03/22 bimatoprost 0.01 % eye drops 1 drp HS 07/15/21 05/03/22 (Krish) carbidopa 25 mg-levodopa 250 mg 1 tablet QID 07/15/21 05/03/22 tablet clopidogrel 75 mg tablet 75 mg DAILY 07/15/21 05/03/22 furosemide 20 mg tablet 20 mg DAILY 07/15/21 05/03/22 levothyroxine 75 mcg tablet 75 mcg DAILY 07/15/21 05/03/22 pramipexole 0.5 mg tablet 1 mg BID 07/15/21 05/03/22 terazosin 10 mg capsule 10 mg DAILY 07/15/21 05/03/22 Allergies Allergy/AdvReac Type Severity Reaction Status Date / Time No Known Allergies Allergy Verified 05/03/22 14:37 Review of Systems Review of Systems: All systems reviewed & are unremarkable except as noted in HPI and below PMFSH Family History Family History Other Cerebrovascular accident Family history of arthritis Hypertension Social History Social History Smoking status: Never smoker Exam Const: General: no acute distress and alert Orientation/consciousness: patient oriented x3 Limitations: No altered mental status HENMT: Head: normal to inspection Other: atraumatic Eyes: Pupils: Equal, round and reactive pupils present Neck: Neck: normal visual inspection Chest: Chest palpation & inspection: normal inspection of the chest Other: TTP over the lower left lateral chest Resp: Effort & Inspection: normal respiratory effort Cardio: Rate: regular rate Back/Spine/Pelvis: Back: no CVA tenderness Skin: General skin exam: normal color Rashes: no rashes Neuro: General: patient oriented x3 and moves all extremities Extrem: General: normal to inspection Psych: Mental Status: mental status grossly normal Course Course Emergency Course: Ordered [place] and radiographs EXAMINATION: [id number] INDICATION: Upper abdominal pain TECHNIQUE: A frontal view of the chest and 3 views of the left ribs were obtained. COMPARISON: None. FINDINGS: The lungs are free of acute opacities. No pleural effusion or pneumothorax. The cardiomediastinal silhouette is normal. There are acute, minimally displaced posterior fractures of the left fifth and sixth ribs. IMPRESSION: 1. Acute, minimally displaced posterior fractures of the left fifth and sixth ribs. Discussed radiographs with patient. Discharged with incentive spirometer and [employer] Vital Signs Vital signs: Vital Signs Temperature 98.6 F 05/03/22 14:16 Pulse Rate 77 05/03/22 14:16 Respiratory Rate 16 05/03/22 14:16 Blood Pressure 177/94 H 05/03/22 14:16 Pulse Oximetry 99 05/03/22 14:16 Oxygen Delivery Room Air 05/03/22 14:16 Temperature 98.4 F 05/03/22 15:35 Pulse Rate 82 05/03/22 15:35 Respiratory Rate 16 05/03/22 15:35 Blood Pressure 154/86 H 05/03/22 15:35 Pulse Oximetry 98 05/03/22 15:35 Oxygen Delivery Room Air 05/03/22 15:35 Medical Decision Making Vital Signs Vital Signs: Vital Signs Temperature 98.6 F 05/03/22 14:16 Pulse Rate 77 05/03/22 14:16 Respiratory Rate 16 05/03/22 14:16 Blood Pressure 177/94 H 05/03/22 14:16 Pulse Oximetry 99 05/03/22 14:16 Oxygen Delivery Room Air 05/03/22 14:16 Temperature 98.4 F 05/03/22 15:35 Pulse Rate 82 05/03/22 15:35 Respiratory Rate 16 05/03/22 15:35 Blood Pressure 154/86 H 05/03/22 15:35 Pulse Oximetry 98
[2022-05-03 14:29] VITALS: BP 177/94; PULSE 70; RESP 18; TEMP 36.4; O2SAT 98
[2022-05-03] MEDS: HYDROcodone/acetaminophen (*CRX) 5-325 MG TABLET 1 TAB PO (14:48)
[2022-05-03 15:04] VITALS: BP 154/86; PULSE 82; RESP 16; TEMP 36.9; O2SAT 98
--- NOTE | 2022-05-03 15:17 | PC.NURSE ---
Cardiopulmonary at beside giving incentive spirometer education and training.
[2022-05-03 15:35] VITALS: BP 154/86; PULSE 82; RESP 16; TEMP 36.9; O2SAT 98
== END 2022-05-03 15:37 | disposition home or self-care (01) ==
LOC: CHSED 15:00
PROVIDERS: Emergency Provider Family Medicine; PCP Internal Medicine
DX: S22.42XA Multiple fractures of ribs, left side, initial encounter for closed fracture (principal); W01.0XXA Fall on same level from slipping, tripping and stumbling without subsequent striking against object, initial encounter; Z79.02 Long term (current) use of antithrombotics/antiplatelets
CPT/HCPCS: 71101; 99283; A9270

== ENCOUNTER 2022-05-15 07:19 | Outpatient (CLI) | payer MEDICARE, SELFPAY ==
[2022-05-15 07:38] LABS: Add Urine Microscopic? YES; Appearance Urine Clear (Clear); Basophils Absolute Auto 0.08 K/mm3 (0.00-0.10); Basophils Percent Auto 1.3 % (0.0-1.0); Bilirubin Urine Negative (Negative); Blood Urine Negative (Negative); Color Urine Light Yellow (Yellow); Eosinophils Absolute Auto 0.28 K/mm3 (0.02-0.50); Eosinophils Percent Auto 4.6 % (1.0-6.0); Glucose Urine UA Negative (Negative); Hematocrit 40.5 % (37.0-46.0); Hemoglobin 13.6 g/dL (12.4-15.3); Immature Granulocyte Absolute 0.03 K/mm3 (0.00-0.00); Immature Granulocyte Percent A 0.5 % (0.0-0.0); Ketones Urine Negative (Negative); Leukocyte Esterase Ur Negative LEU/UL (Negative); Lymphocytes Absolute Auto 1.69 K/mm3 (1.10-4.50); Mean Corpuscular HGB Conc 33.6 g/dL (32.0-36.0); Mean Corpuscular Hemoglobin 32.3 pg (27.0-31.0); Mean Corpuscular Volume 96.2 fL (78.0-102.0); Monocytes Absolute Auto 0.44 K/mm3 (0.10-0.90); Monocytes Percent Auto 7.3 % (2.0-11.0); Neutrophils Absolute Auto 3.5 K/mm3 (1.7-7.2); Neutrophils Percent Auto 58.3 % (50.0-70.0); Nitrate Urine Negative (Negative); Platelet Count Result 184 K/mm3 (150-420); Protein Urine Negative (Negative); Red Blood Count 4.21 M/mm3 (4.70-6.10); Red Cell Distribution Width 12.1 % (11.6-14.4); Specific Grav Ur 1.015 (1.010-1.020); pH Urine 6.5 (5.0-8.0)
[2022-05-15 07:42] LABS: RBC Urine None seen /hpf (0-2); WBC Urine None seen /hpf (0-3)
[2022-05-15 07:43] LABS: Bacteria Urine Trace /hpf
[2022-05-15 07:49] LABS: Creatinine Urine 142.19 mg/dL (40-278); Hemoglobin A1C 5.3 % (<5.7); MALB Creatinine Ratio 9.1 mg/g (0-30); Microalbumin Urine Random < 13.0 mg/L
[2022-05-15 07:50] LABS: Prothrombin Time 11.4 Seconds (9.50-12.10)
[2022-05-15 08:47] LABS: Alanine Aminotransferase 23 U/L (16-63); Albumin Level 3.5 g/dL (3.4-5.0); Alkaline Phosphatase 116 U/L (46-116); Anion Gap 4 mmol/L (8-16); Aspartate Amino Transferase 20 U/L (15-37); Bilirubin,Total 0.7 mg/dL (0.00-1.00); Blood Urea Nitrogen 24 mg/dL (7-18); Calcium 8.3 mg/dL (8.5-10.1); Carbon Dioxide 31 mmol/L (21-32); Chloride 103 mmol/L (98-108); Cholesterol 123 mg/dL (0-200); Creatine Kinase 100 U/L (39-308); Estimated Glomerular Filt Rate > 60; Free T3 2.55 pg/mL (2.18-3.98); Free T4 Free Thyroxine 1.04 ng/dL (0.76-1.46); Glucose 98 mg/dL (70-99); HDL Direct 42 mg/dL (40-60); LDL Cholesterol Calculated 61 mg/dL (<130); Osmolality Calculated 290 mOsm/kg (285-295); Potassium 4.3 mmol/L (3.5-5.1); Sodium 138 mmol/L (136-145); Thyroid Stimulating Hormone 3.41 uIU/mL (0.36-3.74); Total Protein 6.5 g/dL (6.4-8.2); Triglycerides 102 mg/dL (0-150)
== END 2022-05-15 07:20 | disposition home or self-care (01) ==
LOC: CHSLAB 07:22
PROVIDERS: PCP Internal Medicine; Visit Provider Internal Medicine
DX: Z01.818 Encounter for other preprocedural examination (principal); R73.01 Impaired fasting glucose; E78.2 Mixed hyperlipidemia; I10 Essential (primary) hypertension; N39.0 Urinary tract infection, site not specified; E03.4 Atrophy of thyroid (acquired); I35.0 Nonrheumatic aortic (valve) stenosis
CPT/HCPCS: 36415; 80053; 80061; 81001; 82043; 82550; 83036; 84439; 84443; 84481; 85025; 85610

== ENCOUNTER 2022-06-16 13:55 | Inpatient (IN) | payer MEDICARE, SELFPAY ==
[2022-06-16 14:00] VITALS: BP 106/62; PULSE 60; RESP 18; TEMP 35.9; O2SAT 98; BMI 31.0
[2022-06-16 16:00] VITALS: BP 105/62; PULSE 66; RESP 16; TEMP 36.3; O2SAT 99
[2022-06-16] MEDS: CARBIDOPA/LEVODOPA 25/250 MG TABLET 1 TABLET PO ×2 (16:51→20:45)
[2022-06-16] MEDS: PRAMIPEXOLE 1 MG TABLET 3 MG PO (16:52)
[2022-06-16] MEDS: APIXABAN 2.5 MG TABLET 5 MG BY MOUTH (20:44)
[2022-06-16] MEDS: LATANOPROST 0.005% OP SOLN 2.5 ML BTL 1 DROP EACH EYE (20:45)
[2022-06-16] MEDS: ATORVASTATIN 10 MG TABLET 20 MG PO (20:45)
[2022-06-16] MEDS: TIMOLOL MALEATE 0.5% OP SOLN 5 ML BOTTLE 1 DROP EACH EYE (20:46)
[2022-06-16] MEDS: BRIMONIDINE TARTRATE 0.2% OP SOLN 5 ML BTL 1 DROP EACH EYE (20:46)
[2022-06-17] VITALS: BP 105/57; PULSE 93; RESP 18; TEMP 36.1; O2SAT 93
[2022-06-17] MEDS: LEVOTHYROXINE SODIUM 75 MCG TABLET PO (06:07)
--- NOTE | 2022-06-17 06:48 | PM.IMHP ---
H&P: HPI History of Present Illness Date/Time: 06/17/22 06:48 Chief Complaint: rehab/ weakness Narrative: This is a patient that came to our swing bed from an outside hospital status post coronary artery bypass graft x2 and an aortic valve replacement. Patient admitted in swing bed for rehabilitation due to decreased balance decreased mobility in severe limited function endurant and/or mobility. patient notes that he has soreness with movement to his surgical site that is controlled with pain medication. The patient denies SOB, CP, palpitation, extremity numbness, lightheadedness, dizziness, constipation, diarrhea, chills, or fever. Review of Systems Review of Systems: A 14 organ system Review of Systems was performed and pertinent positives included in the HPI, otherwise remaining ROS is negative. [facility] Family History Family History Other Cerebrovascular accident Family history of arthritis Hypertension Social History Social History Smoking status: Never smoker Alcohol intake: never Substance use: never Substance use type: does not use Lack of Transportation: No Lack of Food: Never True Current Housing: I Have Housing Concerned About Future Housing: No Difficulty Paying Gas/Electric Bills: No Difficulty Paying for Meds: No Currently Unemployed: No Education: High School Diploma/GED Difficulty w/ Childcare or Family Care: No Spiritual care concerns: No Meds Home Medications and Allergies Home Medications Medication Instructions Recorded Confirmed Type atorvastatin 20 mg tablet 20 mg HS 07/15/21 06/16/22 History bimatoprost 0.01 % eye drops 1 drp 07/15/21 06/16/22 History (Krish) carbidopa 25 mg-levodopa 250 mg 1 tablet QID 07/15/21 06/16/22 History tablet furosemide 20 mg tablet 40 mg DAILY 07/15/21 06/16/22 History levothyroxine 75 mcg tablet 75 mcg DAILY 07/15/21 06/16/22 History pramipexole 0.5 mg tablet 3 mg TID 07/15/21 06/16/22 History apixaban 5 mg BYMOUTH Q12H 06/16/22 06/16/22 History ascorbic acid (vitamin C) 1,000 mg 1 g PO DAILY 06/16/22 06/16/22 History tablet aspirin 81 mg tablet,delayed 81 mg PO DAILY 06/16/22 06/16/22 History release brimonidine 0.2 %-timolol 0.5 % 1 drp BID 06/16/22 06/16/22 History eye drops methocarbamol 750 mg tablet 750 mg PO TID 06/16/22 06/16/22 History midodrine 5 mg tablet 5 mg PO TID 06/16/22 06/16/22 History multivitamin 1 tablet PO DAILY 06/16/22 06/16/22 History oxycodone 10 mg tablet 10 mg PO Q4H PRN constipation 06/16/22 06/16/22 History pantoprazole 40 mg tablet,delayed 40 mg PO QAM 06/16/22 06/16/22 History release (Protonix) polyethylene glycol 3350 17 gram 17 g PO DAILY 06/16/22 06/16/22 History oral powder packet (Miralax) potassium chloride 20 mEq 40 meq PO DAILY 06/16/22 06/16/22 History tablet,extended release tamsulosin 0.4 mg capsule 0.4 mg PO HS 06/16/22 06/16/22 History Allergies Allergy/AdvReac Type Severity Reaction Status Date / Time No Known Allergies Allergy Verified 05/03/22 14:37 Vital Signs Vital Signs - 24 hr 06/16/22 14:00 06/16/22 16:00 06/17/22 00:00 Temperature 96.6 F L 97.4 F L 96.9 F L Pulse Rate 60 66 93 Respiratory Rate 18 16 18 Blood Pressure 106/62 105/62 105/57 L Pulse Oximetry 98 99 93 Oxygen Delivery Room Air Room Air Room Air Exam Narrative: GENERAL: This is a well-nourished, well-developed patient, in no apparent distress. HEAD: normocephalic, atraumatic. EYES: PERRL. Sclera clear/white. Vision is grossly intact. EARS: External ears normal, auditory canals clear and without drainage, TMs normal without perforation. Hearing grossly intact. NOSE: External nose normal with no obvious nasal discharge, nares without redness, no rhinorrhea. THROAT: Mucous membranes moist, posterior pharynx clear. NECK: Neck supple, non-tender
[2022-06-17 08:00] VITALS: BP 110/60; PULSE 85; RESP 14; TEMP 36.6; O2SAT 97
[2022-06-17] MEDS: PANTOPRAZOLE 40 MG TABLET PO (09:10)
[2022-06-17] MEDS: POTASSIUM CHLORIDE 20 MEQ TABLET 40 MEQ PO (09:10)
[2022-06-17] MEDS: polyethylene glycoL 3350 17 GM POWD.PACK PO (09:10)
[2022-06-17] MEDS: APIXABAN 2.5 MG TABLET 5 MG BY MOUTH ×2 (09:10→20:32)
[2022-06-17] MEDS: ASPIRIN 81 MG ENTERIC TABLET PO (09:10)
[2022-06-17] MEDS: FUROSEMIDE 40 MG TABLET PO (09:11)
[2022-06-17] MEDS: CARBIDOPA/LEVODOPA 25/250 MG TABLET 1 TABLET PO ×4 (09:11→20:33)
[2022-06-17] MEDS: PRAMIPEXOLE 1 MG TABLET 3 MG PO ×3 (09:11→17:56)
[2022-06-17] MEDS: BRIMONIDINE TARTRATE 0.2% OP SOLN 5 ML BTL 1 DROP EACH EYE ×2 (09:12→20:32)
[2022-06-17] MEDS: TIMOLOL MALEATE 0.5% OP SOLN 5 ML BOTTLE 1 DROP EACH EYE ×2 (09:12→20:31)
[2022-06-17 16:35] VITALS: BP 116/59; PULSE 73; RESP 18; TEMP 36.4; O2SAT 98
[2022-06-17] MEDS: LATANOPROST 0.005% OP SOLN 2.5 ML BTL 1 DROP EACH EYE (20:32)
[2022-06-17] MEDS: ATORVASTATIN 10 MG TABLET 20 MG PO (20:32)
[2022-06-17] MEDS: traZODone HCL 50 MG TABLET PO (20:33)
[2022-06-18] VITALS: BP 108/61; PULSE 78; RESP 18; TEMP 36.3; O2SAT 97
[2022-06-18] MEDS: LEVOTHYROXINE SODIUM 75 MCG TABLET PO (05:47)
[2022-06-18 08:00] VITALS: BP 100/53; PULSE 67; RESP 14; TEMP 36.3; O2SAT 96
[2022-06-18] MEDS: APIXABAN 2.5 MG TABLET 5 MG BY MOUTH ×2 (09:23→20:31)
[2022-06-18] MEDS: PANTOPRAZOLE 40 MG TABLET PO (09:23)
[2022-06-18] MEDS: POTASSIUM CHLORIDE 20 MEQ TABLET 40 MEQ PO (09:23)
[2022-06-18] MEDS: CARBIDOPA/LEVODOPA 25/250 MG TABLET 1 TABLET PO ×4 (09:23→20:31)
[2022-06-18] MEDS: TIMOLOL MALEATE 0.5% OP SOLN 5 ML BOTTLE 1 DROP EACH EYE ×2 (09:24→20:32)
[2022-06-18] MEDS: FUROSEMIDE 40 MG TABLET PO (09:24)
[2022-06-18] MEDS: PRAMIPEXOLE 1 MG TABLET 3 MG PO ×3 (09:24→17:49)
[2022-06-18] MEDS: ASPIRIN 81 MG ENTERIC TABLET PO (09:24)
[2022-06-18] MEDS: BRIMONIDINE TARTRATE 0.2% OP SOLN 5 ML BTL 1 DROP EACH EYE ×2 (09:25→20:32)
[2022-06-18 16:20] VITALS: BP 108/57; PULSE 62; RESP 18; TEMP 36.4; O2SAT 95
[2022-06-18] MEDS: ATORVASTATIN 10 MG TABLET 20 MG PO (20:31)
[2022-06-18] MEDS: traZODone HCL 50 MG TABLET PO (20:31)
[2022-06-18] MEDS: LATANOPROST 0.005% OP SOLN 2.5 ML BTL 1 DROP EACH EYE (20:32)
[2022-06-19] VITALS: BP 103/59; PULSE 71; RESP 18; TEMP 36.7; O2SAT 96
[2022-06-19] MEDS: LEVOTHYROXINE SODIUM 75 MCG TABLET PO (05:35)
[2022-06-19 08:00] VITALS: BP 104/52; PULSE 63; RESP 14; TEMP 35.4; O2SAT 95
[2022-06-19] MEDS: FUROSEMIDE 40 MG TABLET PO (09:24)
[2022-06-19] MEDS: POTASSIUM CHLORIDE 20 MEQ TABLET 40 MEQ PO (09:24)
[2022-06-19] MEDS: PANTOPRAZOLE 40 MG TABLET PO (09:25)
[2022-06-19] MEDS: APIXABAN 2.5 MG TABLET 5 MG BY MOUTH ×2 (09:25→20:57)
[2022-06-19] MEDS: PRAMIPEXOLE 1 MG TABLET 3 MG PO ×3 (09:26→16:50)
[2022-06-19] MEDS: CARBIDOPA/LEVODOPA 25/250 MG TABLET 1 TABLET PO ×4 (09:26→20:58)
[2022-06-19] MEDS: TIMOLOL MALEATE 0.5% OP SOLN 5 ML BOTTLE 1 DROP EACH EYE ×2 (09:27→21:08)
[2022-06-19] MEDS: BRIMONIDINE TARTRATE 0.2% OP SOLN 5 ML BTL 1 DROP EACH EYE ×2 (09:27→21:08)
[2022-06-19] MEDS: ASPIRIN 81 MG ENTERIC TABLET PO (09:27)
[2022-06-19 16:00] VITALS: BP 110/61; PULSE 70; RESP 18; TEMP 36.2; O2SAT 97
[2022-06-19] MEDS: traZODone HCL 50 MG TABLET PO (20:58)
[2022-06-19] MEDS: ATORVASTATIN 10 MG TABLET 20 MG PO (20:58)
[2022-06-19] MEDS: LATANOPROST 0.005% OP SOLN 2.5 ML BTL 1 DROP EACH EYE (21:08)
[2022-06-20] VITALS: BP 116/67; PULSE 74; RESP 18; TEMP 36.5; O2SAT 97
[2022-06-20] MEDS: LEVOTHYROXINE SODIUM 75 MCG TABLET PO (05:42)
[2022-06-20 08:00] VITALS: BP 109/64; PULSE 69; RESP 16; TEMP 36.3; O2SAT 95
--- NOTE | 2022-06-20 08:04 | PM.EVENT ---
Event Note Event Note Event Note: sutures removed
[2022-06-20] MEDS: polyethylene glycoL 3350 17 GM POWD.PACK PO (08:54)
[2022-06-20] MEDS: CARBIDOPA/LEVODOPA 25/250 MG TABLET 1 TABLET PO ×4 (08:54→20:53)
[2022-06-20] MEDS: POTASSIUM CHLORIDE 20 MEQ TABLET 40 MEQ PO (08:55)
[2022-06-20] MEDS: APIXABAN 2.5 MG TABLET 5 MG BY MOUTH ×2 (08:55→20:51)
[2022-06-20] MEDS: ASPIRIN 81 MG ENTERIC TABLET PO (08:56)
[2022-06-20] MEDS: FUROSEMIDE 40 MG TABLET PO (08:56)
[2022-06-20] MEDS: PANTOPRAZOLE 40 MG TABLET PO (08:56)
[2022-06-20] MEDS: PRAMIPEXOLE 1 MG TABLET 3 MG PO ×3 (08:57→16:58)
[2022-06-20] MEDS: BRIMONIDINE TARTRATE 0.2% OP SOLN 5 ML BTL 1 DROP EACH EYE ×2 (08:58→20:52)
[2022-06-20] MEDS: TIMOLOL MALEATE 0.5% OP SOLN 5 ML BOTTLE 1 DROP EACH EYE ×2 (08:58→20:53)
[2022-06-20 16:00] VITALS: BP 121/61; PULSE 63; RESP 16; TEMP 36.6; O2SAT 96
[2022-06-20 20:00] VITALS: PULSE 63; RESP 16; O2SAT 96
[2022-06-20] MEDS: ATORVASTATIN 10 MG TABLET 20 MG PO (20:52)
[2022-06-20] MEDS: LATANOPROST 0.005% OP SOLN 2.5 ML BTL 1 DROP EACH EYE (20:53)
[2022-06-20] MEDS: traZODone HCL 50 MG TABLET PO (20:54)
[2022-06-20 23:56] VITALS: BP 93/60; PULSE 76; RESP 16; TEMP 36.2; O2SAT 95
[2022-06-21] MEDS: LEVOTHYROXINE SODIUM 75 MCG TABLET PO (06:20)
[2022-06-21 08:00] VITALS: TEMP 36.9
[2022-06-21] MEDS: ASPIRIN 81 MG ENTERIC TABLET PO (09:13)
[2022-06-21] MEDS: APIXABAN 2.5 MG TABLET 5 MG BY MOUTH ×2 (09:13→21:14)
[2022-06-21] MEDS: PRAMIPEXOLE 1 MG TABLET 3 MG PO ×3 (09:13→16:53)
[2022-06-21] MEDS: POTASSIUM CHLORIDE 20 MEQ TABLET 40 MEQ PO (09:14)
[2022-06-21] MEDS: PANTOPRAZOLE 40 MG TABLET PO (09:14)
[2022-06-21] MEDS: CARBIDOPA/LEVODOPA 25/250 MG TABLET 1 TABLET PO ×4 (09:14→21:14)
[2022-06-21] MEDS: FUROSEMIDE 40 MG TABLET PO (09:14)
[2022-06-21] MEDS: BRIMONIDINE TARTRATE 0.2% OP SOLN 5 ML BTL 1 DROP EACH EYE ×2 (09:15→21:15)
[2022-06-21] MEDS: TIMOLOL MALEATE 0.5% OP SOLN 5 ML BOTTLE 1 DROP EACH EYE ×2 (09:15→21:15)
[2022-06-21 16:00] VITALS: BP 107/55; PULSE 62; RESP 16; TEMP 36.1; O2SAT 94
[2022-06-21 20:00] VITALS: PULSE 62; RESP 16; O2SAT 94
[2022-06-21] MEDS: ATORVASTATIN 10 MG TABLET 20 MG PO (21:14)
[2022-06-21] MEDS: LATANOPROST 0.005% OP SOLN 2.5 ML BTL 1 DROP EACH EYE (21:15)
[2022-06-22] VITALS: BP 108/59; PULSE 64; RESP 18; TEMP 36.2; O2SAT 96
[2022-06-22] MEDS: LEVOTHYROXINE SODIUM 75 MCG TABLET PO (06:23)
[2022-06-22 08:00] VITALS: BP 110/57; PULSE 69; RESP 17; TEMP 36.3; O2SAT 96
[2022-06-22] MEDS: ASPIRIN 81 MG ENTERIC TABLET PO (09:14)
[2022-06-22] MEDS: FUROSEMIDE 40 MG TABLET PO (09:14)
[2022-06-22] MEDS: CARBIDOPA/LEVODOPA 25/250 MG TABLET 1 TABLET PO ×4 (09:14→20:39)
[2022-06-22] MEDS: PANTOPRAZOLE 40 MG TABLET PO (09:14)
[2022-06-22] MEDS: APIXABAN 2.5 MG TABLET 5 MG BY MOUTH ×2 (09:14→20:39)
[2022-06-22] MEDS: POTASSIUM CHLORIDE 20 MEQ TABLET 40 MEQ PO (09:14)
[2022-06-22] MEDS: PRAMIPEXOLE 1 MG TABLET 3 MG PO ×3 (09:15→17:13)
[2022-06-22] MEDS: polyethylene glycoL 3350 17 GM POWD.PACK PO (09:15)
[2022-06-22] MEDS: BRIMONIDINE TARTRATE 0.2% OP SOLN 5 ML BTL 1 DROP EACH EYE ×2 (09:20→20:38)
[2022-06-22] MEDS: TIMOLOL MALEATE 0.5% OP SOLN 5 ML BOTTLE 1 DROP EACH EYE ×2 (09:20→20:39)
[2022-06-22 16:00] VITALS: BP 128/74; PULSE 101; RESP 17; TEMP 36.8; O2SAT 94
[2022-06-22 20:00] VITALS: PULSE 101; RESP 17; O2SAT 94
[2022-06-22] MEDS: ATORVASTATIN 10 MG TABLET 20 MG PO (20:38)
[2022-06-22] MEDS: traZODone HCL 50 MG TABLET PO (20:38)
[2022-06-22] MEDS: LATANOPROST 0.005% OP SOLN 2.5 ML BTL 1 DROP EACH EYE (20:41)
[2022-06-23] VITALS: BP 109/60; PULSE 64; RESP 17; TEMP 36.3; O2SAT 97
[2022-06-23] MEDS: LEVOTHYROXINE SODIUM 75 MCG TABLET PO (07:02)
[2022-06-23 08:00] VITALS: BP 107/64; PULSE 84; RESP 18; TEMP 36.6; O2SAT 96
[2022-06-23] MEDS: TIMOLOL MALEATE 0.5% OP SOLN 5 ML BOTTLE 1 DROP EACH EYE ×2 (09:47→21:02)
[2022-06-23] MEDS: BRIMONIDINE TARTRATE 0.2% OP SOLN 5 ML BTL 1 DROP EACH EYE ×2 (09:47→21:01)
[2022-06-23] MEDS: APIXABAN 2.5 MG TABLET 5 MG BY MOUTH ×2 (09:48→21:03)
[2022-06-23] MEDS: ASPIRIN 81 MG ENTERIC TABLET PO (09:48)
[2022-06-23] MEDS: POTASSIUM CHLORIDE 20 MEQ TABLET 40 MEQ PO (09:48)
[2022-06-23] MEDS: FUROSEMIDE 40 MG TABLET PO (09:48)
[2022-06-23] MEDS: PANTOPRAZOLE 40 MG TABLET PO (09:48)
[2022-06-23] MEDS: PRAMIPEXOLE 1 MG TABLET 3 MG PO ×3 (09:48→17:59)
[2022-06-23] MEDS: CARBIDOPA/LEVODOPA 25/250 MG TABLET 1 TABLET PO ×4 (09:48→21:03)
[2022-06-23 16:00] VITALS: BP 138/64; PULSE 72; RESP 16; TEMP 35.8; O2SAT 95
[2022-06-23] MEDS: LATANOPROST 0.005% OP SOLN 2.5 ML BTL 1 DROP EACH EYE (21:03)
[2022-06-23] MEDS: ATORVASTATIN 10 MG TABLET 20 MG PO (21:03)
[2022-06-23 23:35] VITALS: BP 113/66; PULSE 63; RESP 20; TEMP 36.4; O2SAT 97
[2022-06-23] MEDS: traZODone HCL 50 MG TABLET PO (23:40)
--- NOTE | 2022-06-24 00:11 | PC.NURSE ---
Pt sitting in bed watching TV upon assessment. He is A&O x3 and uses urinal per self, calls when needed and has no c/o pain at this time. Pt VSS, uses bear appropriately to cushion chest c coughing and uses his incentive spirometer s any explanation needed. Pt tolerates activity well. Call almendarez at pt side.
[2022-06-24] MEDS: LEVOTHYROXINE SODIUM 75 MCG TABLET PO (06:24)
[2022-06-24 07:40] VITALS: BP 94/59; PULSE 59; RESP 16; TEMP 36.7; O2SAT 97
[2022-06-24] MEDS: FUROSEMIDE 40 MG TABLET PO (08:15)
[2022-06-24] MEDS: APIXABAN 2.5 MG TABLET 5 MG BY MOUTH ×2 (08:15→20:41)
[2022-06-24] MEDS: polyethylene glycoL 3350 17 GM POWD.PACK PO (08:15)
[2022-06-24] MEDS: CARBIDOPA/LEVODOPA 25/250 MG TABLET 1 TABLET PO ×4 (08:16→20:41)
[2022-06-24] MEDS: PANTOPRAZOLE 40 MG TABLET PO (08:16)
[2022-06-24] MEDS: ASPIRIN 81 MG ENTERIC TABLET PO (08:16)
[2022-06-24] MEDS: TIMOLOL MALEATE 0.5% OP SOLN 5 ML BOTTLE 1 DROP EACH EYE ×2 (08:17→20:43)
[2022-06-24] MEDS: BRIMONIDINE TARTRATE 0.2% OP SOLN 5 ML BTL 1 DROP EACH EYE ×2 (08:17→20:42)
[2022-06-24] MEDS: POTASSIUM CHLORIDE 20 MEQ TABLET 40 MEQ PO (08:17)
[2022-06-24] MEDS: PRAMIPEXOLE 1 MG TABLET 3 MG PO ×3 (08:18→16:54)
--- NOTE | 2022-06-24 08:53 | WPDPN ---
Progress Note: A&P Assessment and Plan (1) Weakness: Code(s): R53.1 - Weakness Status: Acute Assessment and Plan: ? Exhibit tolerance during physical activity as evidenced by a normal fluctuation of vital signs during physical activity. ? Patient will be ability to perform required activities of daily living. ? Provide appropriate nutrition for healing and strength. ? Use appropriate to prevent falls. ? Continue physical therapy/occupational therapy. (2) S/P CABG x 2: Code(s): Z95.1 - Presence of aortocoronary bypass graft Status: Acute Assessment and Plan: s/p CABG x2, on 06/05/2022 Placement of a left MANAV to the LAD and saphenous vein graft to obtuse marginal branch Aortic valve replacement by Dr. Arevalo 06/05/22 follow-up with Dr. Watt on July 17 at 1:45 p.m. (3) Aortic valve replaced: Code(s): Z95.2 - Presence of prosthetic heart valve Status: Acute Assessment and Plan: History of non rheumatic aortic valve stenosis Aortic valve replacement by Dr. Arevalo 06/05/22 follow-up with Dr. Arevalo July 13 at 1:00 p.m. (4) HTN (hypertension): Code(s): I10 - Essential (primary) hypertension Status: Acute Assessment and Plan: Controlled vital signs as ordered (5) Parkinson disease: Code(s): G20 - Parkinson's disease Status: Acute Assessment and Plan: continue Carbi/levodopa (6) YANET (obstructive sleep apnea): Code(s): G47.33 - Obstructive sleep apnea (adult) (pediatric) Status: Acute Assessment and Plan: continue CPAP (7) Afib: Code(s): I48.91 - Unspecified atrial fibrillation Status: Acute Assessment and Plan: controlled post surgery AFib continue amiodarone, Eliquis (8) CHF (congestive heart failure): Code(s): I50.9 - Heart failure, unspecified Status: Acute Assessment and Plan: continue Lasix weight weekly (9) CAD (coronary artery disease): Code(s): I25.10 - Atherosclerotic heart disease of [place] coronary artery without angina pectoris Status: Acute Assessment and Plan: status post CABG (10) HLD (hyperlipidemia): Code(s): E78.5 - Hyperlipidemia, unspecified Status: Acute Assessment and Plan: continue statins Subjective Date/time seen: 06/24/22 08:53 Interval history: Patient is active and working with therapy his is at the bedside. Patient is eating and drinking without difficulties and has remained afebrile he will continue therapy for a additional week and we will reevaluate his progress. Review of Systems Review of Systems: weakness All systems reviewed & are unremarkable except as noted in HPI and below Exam Narrative: GENERAL: This is a well-nourished, well-developed patient, in no apparent distress. HEAD: normocephalic, atraumatic. EYES: PERRL. Sclera clear/white. EARS: External ears normal, auditory canals clear and without drainage, NOSE: External nose normal with no obvious nasal discharge, nares without redness, no rhinorrhea. THROAT: Mucous membranes moist CARDIOVASCULAR: Regular rate and rhythm RESPIRATORY: Clear to auscultation. GASTROINTESTINAL: Abdomen soft, non-tender, nondistended. . SKIN: sternal incision with steri strip in place 5 abd incisions with 3 sites with sutures in place. right LE incision sites with steri strip and bandage to the LE .all C/D/I NEURO: awake, alert, and oriented to person, place and time. EXTREMITIES: Normal range of motion. Objective Data Vital Signs Vital Signs: Vital Signs - 24 hr 06/23/22 16:00 06/23/22 23:35 06/24/22 07:40 Temperature 96.4 F L 97.6 F 98.0 F Pulse Rate 72 63 59 L Respiratory Rate 16 20 16 Blood Pressure 138/64 113/66 94/59 L Pulse Oximetry 95 97 97 Oxygen Delivery Room Air Room Air Room Air Intake/Output Intake/Output: Intake & Output 06/21/22 06/22/22 06/23/22 06/24/22 2
[2022-06-24 16:00] VITALS: BP 127/66; PULSE 64; RESP 16; TEMP 36.6; O2SAT 96
[2022-06-24 19:49] VITALS: PULSE 64; RESP 16; O2SAT 96
[2022-06-24] MEDS: LATANOPROST 0.005% OP SOLN 2.5 ML BTL 1 DROP EACH EYE (20:39)
[2022-06-24] MEDS: ATORVASTATIN 10 MG TABLET 20 MG PO (20:40)
[2022-06-24] MEDS: traZODone HCL 50 MG TABLET PO (20:41)
[2022-06-25] VITALS: BP 114/63; PULSE 62; RESP 16; TEMP 36.3; O2SAT 97
[2022-06-25] MEDS: LEVOTHYROXINE SODIUM 75 MCG TABLET PO (05:39)
[2022-06-25 07:52] VITALS: BP 115/67; PULSE 62; RESP 16; TEMP 36.6; O2SAT 95
[2022-06-25] MEDS: FUROSEMIDE 40 MG TABLET PO (08:12)
[2022-06-25] MEDS: polyethylene glycoL 3350 17 GM POWD.PACK PO (08:12)
[2022-06-25] MEDS: POTASSIUM CHLORIDE 20 MEQ TABLET 40 MEQ PO (08:12)
[2022-06-25] MEDS: APIXABAN 2.5 MG TABLET 5 MG BY MOUTH ×2 (08:12→20:45)
[2022-06-25] MEDS: PANTOPRAZOLE 40 MG TABLET PO (08:12)
[2022-06-25] MEDS: PRAMIPEXOLE 1 MG TABLET 3 MG PO ×3 (08:13→17:00)
[2022-06-25] MEDS: CARBIDOPA/LEVODOPA 25/250 MG TABLET 1 TABLET PO ×4 (08:13→20:45)
[2022-06-25] MEDS: ASPIRIN 81 MG ENTERIC TABLET PO (08:13)
[2022-06-25] MEDS: BRIMONIDINE TARTRATE 0.2% OP SOLN 5 ML BTL 1 DROP EACH EYE ×2 (08:14→20:46)
[2022-06-25] MEDS: TIMOLOL MALEATE 0.5% OP SOLN 5 ML BOTTLE 1 DROP EACH EYE ×2 (08:14→20:48)
[2022-06-25 16:00] VITALS: BP 132/70; PULSE 71; RESP 16; TEMP 36.4; O2SAT 95
[2022-06-25 19:53] VITALS: PULSE 71; RESP 16; O2SAT 95
[2022-06-25] MEDS: LATANOPROST 0.005% OP SOLN 2.5 ML BTL 1 DROP EACH EYE (20:44)
[2022-06-25] MEDS: traZODone HCL 50 MG TABLET PO (20:45)
[2022-06-25] MEDS: ATORVASTATIN 10 MG TABLET 20 MG PO (20:45)
[2022-06-26] VITALS: BP 114/66; PULSE 62; RESP 17; TEMP 36.4; O2SAT 96
[2022-06-26] MEDS: LEVOTHYROXINE SODIUM 75 MCG TABLET PO (05:57)
[2022-06-26 08:00] VITALS: BP 105/62; PULSE 62; RESP 14; TEMP 36.3; O2SAT 95
[2022-06-26] MEDS: ASPIRIN 81 MG ENTERIC TABLET PO (09:06)
[2022-06-26] MEDS: APIXABAN 2.5 MG TABLET 5 MG BY MOUTH ×2 (09:06→20:51)
[2022-06-26] MEDS: FUROSEMIDE 40 MG TABLET PO (09:06)
[2022-06-26] MEDS: polyethylene glycoL 3350 17 GM POWD.PACK PO (09:06)
[2022-06-26] MEDS: PRAMIPEXOLE 1 MG TABLET 3 MG PO ×3 (09:06→17:04)
[2022-06-26] MEDS: PANTOPRAZOLE 40 MG TABLET PO (09:06)
[2022-06-26] MEDS: CARBIDOPA/LEVODOPA 25/250 MG TABLET 1 TABLET PO ×4 (09:06→20:50)
[2022-06-26] MEDS: POTASSIUM CHLORIDE 20 MEQ TABLET 40 MEQ PO (09:07)
[2022-06-26] MEDS: TIMOLOL MALEATE 0.5% OP SOLN 5 ML BOTTLE 1 DROP EACH EYE ×2 (10:34→20:50)
[2022-06-26] MEDS: BRIMONIDINE TARTRATE 0.2% OP SOLN 5 ML BTL 1 DROP EACH EYE ×2 (10:34→20:52)
[2022-06-26 16:00] VITALS: BP 110/60; PULSE 65; RESP 14; TEMP 36.4; O2SAT 96
[2022-06-26 19:47] VITALS: PULSE 65; RESP 14; O2SAT 96
[2022-06-26] MEDS: traZODone HCL 50 MG TABLET PO (20:50)
[2022-06-26] MEDS: ATORVASTATIN 10 MG TABLET 20 MG PO (20:51)
[2022-06-26] MEDS: LATANOPROST 0.005% OP SOLN 2.5 ML BTL 1 DROP EACH EYE (20:53)
[2022-06-27] VITALS: BP 98/50; PULSE 60; RESP 16; TEMP 36.2; O2SAT 96
[2022-06-27] MEDS: LEVOTHYROXINE SODIUM 75 MCG TABLET PO (05:44)
[2022-06-27 08:00] VITALS: BP 99/64; PULSE 64; RESP 15; TEMP 36.6; O2SAT 96
[2022-06-27] MEDS: PANTOPRAZOLE 40 MG TABLET PO (09:12)
[2022-06-27] MEDS: BRIMONIDINE TARTRATE 0.2% OP SOLN 5 ML BTL 1 DROP EACH EYE ×2 (09:12→20:51)
[2022-06-27] MEDS: PRAMIPEXOLE 1 MG TABLET 3 MG PO ×3 (09:12→17:26)
[2022-06-27] MEDS: POTASSIUM CHLORIDE 20 MEQ TABLET 40 MEQ PO (09:12)
[2022-06-27] MEDS: TIMOLOL MALEATE 0.5% OP SOLN 5 ML BOTTLE 1 DROP EACH EYE ×2 (09:12→20:51)
[2022-06-27] MEDS: CARBIDOPA/LEVODOPA 25/250 MG TABLET 1 TABLET PO ×4 (09:12→20:49)
[2022-06-27] MEDS: APIXABAN 2.5 MG TABLET 5 MG BY MOUTH ×2 (09:12→20:49)
[2022-06-27] MEDS: ASPIRIN 81 MG ENTERIC TABLET PO (09:12)
[2022-06-27] MEDS: FUROSEMIDE 40 MG TABLET PO (09:12)
--- NOTE | 2022-06-27 12:56 | PM.EVENT ---
Event Note Event Note Event Note: Patient started on Mucinex as he feels like he has a cough and he is congested. Patient has not coughed in my presence but will order for his need when he does need it . Patient has remained a febrile eating and drinking withuot difficulties.
[2022-06-27 16:00] VITALS: BP 107/60; PULSE 68; RESP 15; TEMP 36.9; O2SAT 97
[2022-06-27] MEDS: traZODone HCL 50 MG TABLET PO (20:49)
[2022-06-27] MEDS: ATORVASTATIN 10 MG TABLET 20 MG PO (20:50)
[2022-06-27] MEDS: LATANOPROST 0.005% OP SOLN 2.5 ML BTL 1 DROP EACH EYE (20:50)
[2022-06-27] MEDS: guaiFENesin 12 HR 600 MG TABCR PO (20:50)
[2022-06-28] VITALS: BP 117/58; PULSE 60; RESP 16; TEMP 36.3; O2SAT 95
[2022-06-28] MEDS: LEVOTHYROXINE SODIUM 75 MCG TABLET PO (05:55)
[2022-06-28 08:00] VITALS: BP 109/58; PULSE 62; RESP 18; TEMP 35.8; O2SAT 96
[2022-06-28] MEDS: FUROSEMIDE 40 MG TABLET PO (09:10)
[2022-06-28] MEDS: ASPIRIN 81 MG ENTERIC TABLET PO (09:10)
[2022-06-28] MEDS: PRAMIPEXOLE 1 MG TABLET 3 MG PO ×3 (09:11→17:29)
[2022-06-28] MEDS: PANTOPRAZOLE 40 MG TABLET PO (09:11)
[2022-06-28] MEDS: APIXABAN 2.5 MG TABLET 5 MG BY MOUTH ×2 (09:11→20:27)
[2022-06-28] MEDS: guaiFENesin 12 HR 600 MG TABCR PO ×2 (09:11→20:27)
[2022-06-28] MEDS: TIMOLOL MALEATE 0.5% OP SOLN 5 ML BOTTLE 1 DROP EACH EYE ×2 (09:11→20:27)
[2022-06-28] MEDS: POTASSIUM CHLORIDE 20 MEQ TABLET 40 MEQ PO (09:11)
[2022-06-28] MEDS: CARBIDOPA/LEVODOPA 25/250 MG TABLET 1 TABLET PO ×4 (09:11→20:27)
[2022-06-28] MEDS: BRIMONIDINE TARTRATE 0.2% OP SOLN 5 ML BTL 1 DROP EACH EYE ×2 (09:11→20:27)
[2022-06-28 16:00] VITALS: BP 99/50; PULSE 66; RESP 17; TEMP 35.9; O2SAT 97
[2022-06-28] MEDS: ATORVASTATIN 10 MG TABLET 20 MG PO (20:27)
[2022-06-28] MEDS: traZODone HCL 50 MG TABLET PO (20:27)
[2022-06-28] MEDS: LATANOPROST 0.005% OP SOLN 2.5 ML BTL 1 DROP EACH EYE (20:27)
[2022-06-29] VITALS: BP 101/55; PULSE 60; RESP 16; TEMP 35.9; O2SAT 97
[2022-06-29] MEDS: LEVOTHYROXINE SODIUM 75 MCG TABLET PO (05:59)
[2022-06-29 07:36] VITALS: BP 103/69; PULSE 68; RESP 18; TEMP 36.3; O2SAT 96
[2022-06-29] MEDS: POTASSIUM CHLORIDE 20 MEQ TABLET 40 MEQ PO (08:08)
[2022-06-29] MEDS: polyethylene glycoL 3350 17 GM POWD.PACK PO (08:09)
[2022-06-29] MEDS: PRAMIPEXOLE 1 MG TABLET 3 MG PO ×3 (08:09→16:53)
[2022-06-29] MEDS: ASPIRIN 81 MG ENTERIC TABLET PO (08:10)
[2022-06-29] MEDS: guaiFENesin 12 HR 600 MG TABCR PO ×2 (08:10→20:27)
[2022-06-29] MEDS: CARBIDOPA/LEVODOPA 25/250 MG TABLET 1 TABLET PO ×4 (08:10→20:28)
[2022-06-29] MEDS: APIXABAN 2.5 MG TABLET 5 MG BY MOUTH ×2 (08:10→20:27)
[2022-06-29] MEDS: BRIMONIDINE TARTRATE 0.2% OP SOLN 5 ML BTL 1 DROP EACH EYE ×2 (08:11→20:30)
[2022-06-29] MEDS: PANTOPRAZOLE 40 MG TABLET PO (08:11)
[2022-06-29] MEDS: TIMOLOL MALEATE 0.5% OP SOLN 5 ML BOTTLE 1 DROP EACH EYE ×2 (08:11→20:31)
[2022-06-29] MEDS: FUROSEMIDE 40 MG TABLET PO (08:11)
[2022-06-29 12:14] LABS: INR 1.1; Prothrombin Time 12.4 Seconds (9.50-12.10)
[2022-06-29] MEDS: MIDODRINE HCL 2.5 MG TABLET 5 MG PO ×2 (12:43→16:53)
[2022-06-29 16:00] VITALS: BP 108/61; PULSE 59; RESP 16; TEMP 36.5; O2SAT 96
--- NOTE | 2022-06-29 16:20 | PC.NURSE ---
Patient c/o pain in bilateral shoulders, but does not want pain medication. Incentive spirometry used several times per specifications writer's instruction. Patient resting in bed between therapy sessions. Call light within reach.
[2022-06-29] MEDS: WARFARIN (*PBKC) 5 MG TABLET PO (16:52)
--- NOTE | 2022-06-29 19:00 | PC.NURSE ---
Completed bedside change of shift report with day shift nurse. Patient stated he was not in any pain, day shift nurse indicated that he was having chronic pain in his shoulder due to rotator cuff injury and arthritis, that patient states is only relieved by cortisone shot. He stated that he was planning on shoulder surgery prior to his need for the CABG stent placement. He will deal with his shoulder after this is all cleared up. Day shift nurse stated that patient would be D/C'd to home tomorrow. Patient is excited about that. He asked questions about discharge, including whether he would be participating in Cardiac Rehab or PT. Day shift nurse indicated that would all be outlined in his discharge plan, and they would go over that tomorrow.
[2022-06-29] MEDS: traZODone HCL 50 MG TABLET PO (20:27)
[2022-06-29] MEDS: ATORVASTATIN 10 MG TABLET 20 MG PO (20:27)
[2022-06-29] MEDS: LATANOPROST 0.005% OP SOLN 2.5 ML BTL 1 DROP EACH EYE (20:30)
[2022-06-30] VITALS: BP 130/70; PULSE 62; RESP 18; TEMP 36.4; O2SAT 96
[2022-06-30] MEDS: LEVOTHYROXINE SODIUM 75 MCG TABLET PO (05:36)
--- NOTE | 2022-06-30 06:02 | PC.NURSE ---
Patient slept well, waking up briefly to use the urinal. Patient did not require any pain medication, although his shoulder is still painful. Patient reports that pain medication does not help that particular area. Patient will be discharging today, going home.
[2022-06-30 07:48] VITALS: BP 131/71; PULSE 69; RESP 16; TEMP 36.4; O2SAT 96
--- NOTE | 2022-06-30 08:25 | PM.DS ---
DS: Admitting Diagnosis Discharge Date 06/30/2022 Admitting Diagnosis rehab DS: Discharge Diagnosis Discharge Diagnosis (1) Weakness: Code(s): R53.1 - Weakness Status: Acute Assessment and Plan: ? outpatient PT (2) S/P CABG x 2: Code(s): Z95.1 - Presence of aortocoronary bypass graft Status: Acute Assessment and Plan: s/p CABG x2, on 06/05/2022 Placement of a left MANAV to the LAD and saphenous vein graft to obtuse marginal branch Aortic valve replacement by Dr. Arevalo 06/05/22 follow-up with Dr. Watt on July 17 at 1:45 p.m. (3) Aortic valve replaced: Code(s): Z95.2 - Presence of prosthetic heart valve Status: Acute Assessment and Plan: History of non rheumatic aortic valve stenosis Aortic valve replacement by Dr. Arevalo 06/05/22 follow-up with Dr. Arevalo July 13 at 1:00 p.m. (4) HTN (hypertension): Code(s): I10 - Essential (primary) hypertension Status: Acute Assessment and Plan: Controlled vital signs as ordered (5) Parkinson disease: Code(s): G20 - Parkinson's disease Status: Acute Assessment and Plan: continue Carbi/levodopa (6) YANET (obstructive sleep apnea): Code(s): G47.33 - Obstructive sleep apnea (adult) (pediatric) Status: Acute Assessment and Plan: continue CPAP (7) Afib: Code(s): I48.91 - Unspecified atrial fibrillation Status: Acute Assessment and Plan: controlled post surgery AFib continue amiodarone, Eliquis changed to warfarin due to patient's inability to afford medication (8) CHF (congestive heart failure): Code(s): I50.9 - Heart failure, unspecified Status: Acute Assessment and Plan: continue Lasix weight weekly (9) CAD (coronary artery disease): Code(s): I25.10 - Atherosclerotic heart disease of [place] coronary artery without angina pectoris Status: Acute Assessment and Plan: status post CABG (10) HLD (hyperlipidemia): Code(s): E78.5 - Hyperlipidemia, unspecified Status: Acute Assessment and Plan: continue statins DS: Summary Hospital Course Reason for hospitalization: rehab weakness Hospital Course: ?This is a patient that came to our swing bed from? an outside hospital status post coronary artery bypass graft x2 and an aortic valve replacement.? ? Patient admitted in swing bed for rehabilitation due to decreased balance decreased mobility in severe limited function endurant and/or mobility. patient notes that he has soreness with movement to his surgical site that is controlled with pain medication. The patient denies SOB, CP, palpitation, extremity numbness, lightheadedness, dizziness, constipation, diarrhea, chills, or fever. - patient dx with afib given eliquis at [facility]. Cost of eliquis to expensive for patient. patient bridge to warfarin 5 mg daily. Patient did receive a total of 10 mg before discharge with an INR of 1.1 and repeat PT INR in 3 days. Call patient's primary care physician form of the medication adjustment and change and informed that he will get a repeat PT INR in 3 days with results going to primary care. physician for possible medication adjustments. Time Spent with Patient Time attestation: Total time spent providing and/or coordinating discharge services: Exam Narrative: GENERAL: This is a well-nourished, well-developed patient, in no apparent distress. HEAD: normocephalic, atraumatic. EYES: PERRL. Sclera clear/white. EARS: External ears normal, auditory canals clear and without drainage, NOSE: External nose normal with no obvious nasal discharge, nares without redness, no rhinorrhea. THROAT: Mucous membranes moist CARDIOVASCULAR: Regular rate and rhythm RESPIRATORY: Clear to auscultation. GASTROINTESTINAL: Abdomen soft, non-tender, nondistended. . SKIN: sternal incision with steri strip in place 5 abd incisions w
[2022-06-30] MEDS: POTASSIUM CHLORIDE 20 MEQ TABLET 40 MEQ PO (08:39)
[2022-06-30] MEDS: polyethylene glycoL 3350 17 GM POWD.PACK PO (08:39)
[2022-06-30] MEDS: PRAMIPEXOLE 1 MG TABLET 3 MG PO ×2 (08:40→13:00)
[2022-06-30] MEDS: PANTOPRAZOLE 40 MG TABLET PO (08:41)
[2022-06-30] MEDS: guaiFENesin 12 HR 600 MG TABCR PO (08:41)
[2022-06-30] MEDS: MIDODRINE HCL 2.5 MG TABLET 5 MG PO ×2 (08:41→13:00)
[2022-06-30] MEDS: WARFARIN (*PBKC) 5 MG TABLET PO (08:42)
[2022-06-30] MEDS: CARBIDOPA/LEVODOPA 25/250 MG TABLET 1 TABLET PO ×2 (08:42→13:00)
[2022-06-30] MEDS: ASPIRIN 81 MG ENTERIC TABLET PO (08:42)
[2022-06-30] MEDS: TIMOLOL MALEATE 0.5% OP SOLN 5 ML BOTTLE 1 DROP EACH EYE (08:43)
[2022-06-30] MEDS: BRIMONIDINE TARTRATE 0.2% OP SOLN 5 ML BTL 1 DROP EACH EYE (08:43)
[2022-06-30] MEDS: FUROSEMIDE 40 MG TABLET PO (08:43)
--- NOTE | 2022-06-30 14:00 | PC.NURSE ---
Lecturer In Marketing went over discharge instructions with patient, his , and his niece. All voiced understanding. Lecturer In Marketing placed discharge paper that patient was to sign and return into the folder patient took home, by mistake. All personal belongings returned to patient. Patient left unit in w/c accompanied by telegraphic typewriter repairer and family. Patient left hospital grounds in privately owned vehicle.
--- NOTE | 2022-07-04 12:19 | PC.NURSE ---
Pt states he received and understood his discharge instructions. Pt also states I had excellent care, everyone was so nice. That's why I wanted to come there.
== END 2022-06-30 14:00 | disposition home or self-care (01) | DRG 948 ==
PROVIDERS: Nurse Practitioner; Admitting Provider Internal Medicine; PCP Internal Medicine; Visit Provider Internal Medicine
DX: R53.1 Weakness (principal); I48.20 Chronic atrial fibrillation, unspecified; I11.0 Hypertensive heart disease with heart failure; I50.9 Heart failure, unspecified; I25.10 Atherosclerotic heart disease of native coronary artery without angina pectoris; E78.5 Hyperlipidemia, unspecified; G20 Parkinson's disease; G47.33 Obstructive sleep apnea (adult) (pediatric); Z95.1 Presence of aortocoronary bypass graft; Z95.2 Presence of prosthetic heart valve; Z79.01 Long term (current) use of anticoagulants
CPT/HCPCS: 36415; 85610; 97110; 97116; 97161; 97165; 97530; 97535; A9270

== ENCOUNTER 2022-07-04 15:50 | Outpatient (RCR) | payer MEDICARE, SELFPAY ==
--- NOTE | 2022-07-05 07:41 | BUPTOPEVAL1 ---
Assessment and note entered by JT File, PT Evaluation Information Assessment Status Evaluation Diagnosis generalized weakness Onset 06/30/22 Subjective Information mr. noriega reports he is feeling weak following a CABG operation on 06/05/22. he was in skilled swing bed for nearly 2 weeks. he is now coming to therapy to improve his LE strength, endurance, and balance. he reports no pain today, and reports no falls. patient continues to be under sternal precautions from his CABG. Reported Pain Level Pain Score 0: Self Report Assessment PT Clinical Summary mr. noirega is an 81 yo man who presents to skilled PT services for evaluation of generalized weakness and decreased endurance following a heart proceudre and 2 week skilled swing bed stay. as of this date, he presents with bilateral LE weakness, decreased exercise/ambulation endurance, and high fall risk. he would benefit from skilled PT services to improve his objective/functional deficits and progress towards a return to his prior level functional activity performance/ independence with better endurance and improved balance/stability. Plan of Care Interventions Gait Training,Neuro Re-education,Patient/Caregiver Educati,Therapeutic Activities,Therapeutic Exercise PT Services Indicated Yes Treatment Frequency and 3x weekly for 12 visits Duration These treatments will address the objective and functional deficits as defined above. The patient will be advanced safely and appropriately in order for the patient to progress towards his/her prior level of function. Additional exercises will be introduced and as well as a comprehensive home exercise program upon discharge, if needed, ?to ensure carryover of functional gains achieved in the clinic. This treatment plan has been reviewed and agreement upon by the patient.
--- NOTE | 2022-07-25 15:15 | PTOPPROG ---
Assessment and note entered by JT File, PT Evaluation Information Assessment Status Progress Diagnosis generalized weakness Onset 06/30/22 Subjective Information patient reports he feels Good this date. he reports he has no pain. Assessment PT Clinical Summary mr. noriega presents to skilled PT services for his 10th skilled therapy visit. as of this date, he has made progress towards goals of sit to stand transfer independence, ambulation endurance, and gait mechanics. he would benefit from continued skilled PT to improve his remaining objective/ functional deficits to further progress towards and achieve goals for skilled PT. Plan of Care Interventions Gait Training,Neuro Re-education,Patient/Caregiver Educati,Therapeutic Activities,Therapeutic Exercise PT Services Indicated Yes Treatment Frequency and continue skilled PT per initial POC Duration These treatments will address the objective and functional deficits as defined above. The patient will be advanced safely and appropriately in order for the patient to progress towards his/her prior level of function. Additional exercises will be introduced and as well as a comprehensive home exercise program upon discharge, if needed, ?to ensure carryover of functional gains achieved in the clinic. This treatment plan has been reviewed and agreement upon by the patient.
--- NOTE | 2022-07-28 15:32 | PTOPDC ---
Assessment and note entered by Lindsey Warren DPT Evaluation Information Assessment Status Re-evaluation Diagnosis generalized weakness Onset 06/30/22 Subjective Information Patient reports he feels like he is a lot stronger since starting PT. He states he has not had an pain. He reports he does feel more insteady since surgery and needs to use the walker at home. Reported Pain Level Pain Score 0: Self Report Assessment PT Clinical Summary mr. noriega attended 12 visits of skilled PT from 07/04/22-07/28/22. He made significant strength, mobility and balance progress since start of care. He reports he has been able to return to all previous activities with the use of a FWW. He is appropriate for DC at this time and is compliant with HEP. Plan of Care Interventions Gait Training,Neuro Re-education,Patient/Caregiver Educati,Therapeutic Activities,Therapeutic Exercise PT Services Indicated No Treatment Frequency and DC to independent HEP Duration
== END 2022-07-28 10:53 | disposition home or self-care (01) ==
LOC: CHSPT 15:50
PROVIDERS: Visit Provider Nurse Practitioner
DX: R53.1 Weakness (principal); I48.91 Unspecified atrial fibrillation
CPT/HCPCS: 97110; 97112; 97161; 97530

== ENCOUNTER 2022-07-14 08:44 | Outpatient (CLI) | payer MEDICARE, SELFPAY ==
[2022-07-14 09:18] LABS: Prothrombin Time 59.6 Seconds (9.50-12.10)
[2022-07-14 09:25] LABS: INR 6.3
== END 2022-07-14 08:45 | disposition home or self-care (01) ==
PROVIDERS: PCP Internal Medicine; Visit Provider Nurse Practitioner
DX: I48.91 Unspecified atrial fibrillation (principal)
CPT/HCPCS: 36415; 85610

== ENCOUNTER 2022-07-17 07:08 | Outpatient (RCR) | payer MEDICARE, SELFPAY ==
[2022-07-17 07:31] LABS: INR 1.6; Prothrombin Time 17.2 Seconds (9.50-12.10)
== END 2022-10-15 23:59 | disposition home or self-care (01) ==
LOC: CHSLAB 07:08
PROVIDERS: PCP Internal Medicine; Visit Provider Internal Medicine
DX: R79.1 Abnormal coagulation profile (principal)
CPT/HCPCS: 36415; 85610

== ENCOUNTER 2022-09-22 10:44 | Outpatient (CLI) | payer MEDICARE, SELFPAY ==
[2022-09-22 11:24] LABS: Anion Gap 3 mmol/L (8-16); Blood Urea Nitrogen 22 mg/dL (7-18); Calcium 8.7 mg/dL (8.5-10.1); Carbon Dioxide 32 mmol/L (21-32); Chloride 104 mmol/L (98-108); Estimated Glomerular Filt Rate > 60; Glucose 110 mg/dL (70-99); Osmolality Calculated 292 mOsm/kg (285-295); Potassium 4.1 mmol/L (3.5-5.1); Sodium 139 mmol/L (136-145)
--- NOTE | 2022-09-22 12:17 | ECHO_ITS ---
Patient Info Name: Alli Eagle Age: 81 years : 1940 Gender: Male Ht: 65 in Wt: 177 lbs BSA: 1.94 m2 HR: 71 bpm BP: 119 / 64 mmHg Heart Rhythm: Sinus Rhythm Technical Quality: Poor Exam Date: 09/22/2022 12:05 PM Exam Location: [facility] Patient Status: Outpatient Admit Date: 09/22/2022 Staff Ordering Physician: Leticia Handley MD Environmental Health Safety Manager: Rekha Ritchie RDCS Attending Provider: Leticia Handley MD Referring Physician: Ender THEODORE; Exam Type: CA echo dop color flow w con Study Info Indications - chronic heart failure Complete two-dimensional, color flow and Doppler transthoracic echocardiogram is performed with contrast to opacify the left ventricle and to improve the deliniation of the left ventricle endocardial borders. Contrast/Agitated Saline Contrast/Ag. Saline: Definity Amount: 3.00 ml Administered By: Rekha Ritchie RDCS New IV Access: Right Site Condition: IV removed Summary 1. Left ventricular chamber dimension is normal. 2. Left ventricular systolic function is normal, estimated at 60-65%. 3. There is mildly increased left ventricular wall thickness. 4. The left ventricular diastolic function is grade I diastolic dysfunction. 5. Left atrial chamber dimension is mildly enlarged. 6. There is mild to moderate aortic valve stenosis with a peak velocity of 260.89 cm/s, mean gradient of 15 mmHg, and aortic valve area of 1.21 cm2. 7. The mitral valve annulus is mildly calcified. 8. There is mild tricuspid valve regurgitation. Left Ventricle Left ventricular chamber dimension is normal. Left ventricular systolic function is normal, estimated at 60-65%. There is mildly increased left ventricular wall thickness. The left ventricular diastolic function is grade I diastolic dysfunction. Right Ventricle Right ventricular chamber dimension is normal. Right ventricular systolic function is normal. Left Atria Left atrial chamber dimension is mildly enlarged. Right Atria Right atrial chamber dimension is normal. Atrial Septum Intact interatrial septum visualized by color flow imaging. Aortic Valve The aortic valve is not well visualized. There is mild to moderate aortic valve stenosis with a peak velocity of 260.89 cm/s, mean gradient of 15 mmHg, and aortic valve area of 1.21 cm2. There is trace aortic valve regurgitation. Pulmonic Valve The pulmonic valve is not well visualized. Mitral Valve There is no mitral valve stenosis. There is trace mitral valve regurgitation. The mitral valve annulus is mildly calcified. Tricuspid Valve The tricuspid valve leaflets are normal. There is no significant tricuspid valve stenosis. There is mild tricuspid valve regurgitation. No pulmonary hypertension, estimated pulmonary arterial systolic pressure is 30 mmHg. Pericardium/Pleural The pericardium appears normal. There is no pericardial effusion. Inferior Vena Cava Normal inferior vena cava with >50% collapse upon inspiration consistent with normal right atrial pressure, 10 mmHg. Aorta The aortic root size at the sinus of Valsalva is normal. Left Ventricular Outflow Tract Name Value Normal LVOT 2D LVOT Diameter 2.04 cm LVOT Doppler
== END 2022-09-22 10:45 | disposition home or self-care (01) ==
PROVIDERS: PCP Internal Medicine; Visit Provider Internal Medicine Cardiovascular Disease
DX: I10 Essential (primary) hypertension (principal); I25.10 Atherosclerotic heart disease of native coronary artery without angina pectoris; Z95.3 Presence of xenogenic heart valve; Z95.1 Presence of aortocoronary bypass graft; I35.0 Nonrheumatic aortic (valve) stenosis; I51.7 Cardiomegaly
CPT/HCPCS: 36415; 80048; C8929

== ENCOUNTER 2022-10-03 13:35 | Outpatient (CLI) | payer MEDICARE, SELFPAY ==
--- NOTE | ~2022-10-03 | US_ITS ---
EXAMINATION: US arterial ankle brachial ind DATE: 10/03/2022 14:23 INDICATION: Peripheral arterial occlusive disease. TECHNIQUE: Segmental pressures and plethysmographic and Doppler waveforms of the brachial and lower e xtremity arteries were obtained. COMPARISON: None. FINDINGS: Right and left brachial artery pressures of 120 mm Hg and 132 mm Hg, respectively, are concordant (no rmal difference <= 30 mmHg). The right ankle-brachial index (CLAUDIO) is 1.67 (normal >= 0.9-1.0). The right great toe-brachial index (TBI) is 0.55 (normal >= 0.65). Arterial Doppler waveforms are triphasic with brisk systolic upstroke s at both right posterior tibial and dorsalis pedis arteries. The left CLAUDIO is 1.06. The left TBI is 0.57. Arterial Doppler waveforms are triphasic with brisk systo lic upstrokes at both left posterior tibial artery. Retrograde flow with biphasic waveforms with bris k systolic upstrokes in the left dorsalis pedis artery suggesting a more proximal occlusion with more distal collateral reconstitution of flow. IMPRESSION: 1. Mild arterial occlusive disease to bilateral lower limbs with mildly decreased bilateral TBI's. 2. Reversal flow in the left dorsalis pedis artery suggesting a more proximal occlusion with more dis josep collateral reconstitution of flow. Reviewed, dictated and finalized at location A. IMPRESSION: 1. Mild arterial occlusive disease to bilateral lower limbs with mildly decreas ed bilateral TBI's. 2. Reversal flow in the left dorsalis pedis artery suggesting a more proximal o cclusion with more distal collateral reconstitution of flow.
== END 2022-10-03 13:36 | disposition home or self-care (01) ==
LOC: CHSIMG 13:37
PROVIDERS: PCP Internal Medicine; Visit Provider Internal Medicine
DX: I73.9 Peripheral vascular disease, unspecified (principal)
CPT/HCPCS: 93922

== ENCOUNTER 2022-11-15 09:30 | Outpatient (RCR) | payer MEDICARE, SELFPAY | END 2022-11-15 14:27 | disposition home or self-care (01) | PROVIDERS: PCP Internal Medicine; Visit Provider Internal Medicine Cardiovascular Disease | DX: Z95.1 Presence of aortocoronary bypass graft (principal) | CPT/HCPCS: 93798 ==

== ENCOUNTER 2022-11-16 07:11 | Outpatient (CLI) | payer MEDICARE, SELFPAY ==
[2022-11-16 07:24] LABS: Basophils Absolute Auto 0.08 K/mm3 (0.00-0.10); Basophils Percent Auto 1.3 % (0.0-1.0); Eosinophils Absolute Auto 0.23 K/mm3 (0.02-0.50); Eosinophils Percent Auto 3.7 % (1.0-6.0); Hematocrit 39.3 % (37.0-46.0); Immature Granulocyte Absolute 0.02 K/mm3 (0.00-0.00); Immature Granulocyte Percent A 0.3 % (0.0-0.0); Lymphocytes Absolute Auto 1.92 K/mm3 (1.10-4.50); Lymphocytes Percent Auto 30.7 % (18.0-42.0); Mean Corpuscular HGB Conc 33.1 g/dL (32.0-36.0); Mean Corpuscular Hemoglobin 31.7 pg (27.0-31.0); Mean Corpuscular Volume 95.9 fL (78.0-102.0); Mean Platelet Volume 8.8 fl (8.7-11.0); Monocytes Absolute Auto 0.42 K/mm3 (0.10-0.90); Monocytes Percent Auto 6.7 % (2.0-11.0); Neutrophils Absolute Auto 3.6 K/mm3 (1.7-7.2); Neutrophils Percent Auto 57.3 % (50.0-70.0); Platelet Count Result 145 K/mm3 (150-420); Red Cell Distribution Width 13.8 % (11.6-14.4); White Blood Count 6.3 K/mm3 (4.8-10.8)
[2022-11-16 08:05] LABS: Hemoglobin A1C 5.4 % (<5.7)
[2022-11-16 08:18] LABS: Alanine Aminotransferase 21 U/L (16-63); Albumin Level 3.4 g/dL (3.4-5.0); Alkaline Phosphatase 142 U/L (46-116); Anion Gap 4 mmol/L (8-16); Aspartate Amino Transferase 15 U/L (15-37); Bilirubin,Total 0.6 mg/dL (0.00-1.00); Blood Urea Nitrogen 17 mg/dL (7-18); Calcium 8.7 mg/dL (8.5-10.1); Carbon Dioxide 32 mmol/L (21-32); Chloride 106 mmol/L (98-108); Cholesterol 108 mg/dL (0-200); Creatine Kinase 67 U/L (39-308); Estimated Glomerular Filt Rate > 60; Free T3 2.14 pg/mL (2.18-3.98); Free T4 Free Thyroxine 0.99 ng/dL (0.76-1.46); Glucose 106 mg/dL (70-99); HDL Direct 34 mg/dL (40-60); LDL Cholesterol Calculated 58 mg/dL (<130); Osmolality Calculated 295 mOsm/kg (285-295); Potassium 4.3 mmol/L (3.5-5.1); Sodium 142 mmol/L (136-145); Thyroid Stimulating Hormone 3.79 uIU/mL (0.36-3.74); Total Protein 6.3 g/dL (6.4-8.2); Triglycerides 80 mg/dL (0-150)
[2022-11-16 10:35] LABS: Appearance Urine Clear (Clear); Bilirubin Urine Negative (Negative); Blood Urine Negative (Negative); Color Urine Yellow (Yellow); Glucose Urine UA Negative (Negative); Ketones Urine Trace (Negative); Leukocyte Esterase Ur Negative LEU/UL (Negative); Nitrate Urine Negative (Negative); Protein Urine Negative (Negative); Specific Grav Ur 1.015 (1.010-1.020); pH Urine 6.5 (5.0-8.0)
[2022-11-16 10:51] LABS: Add Urine Microscopic? YES; Bacteria Urine Rare /hpf; RBC Urine None seen /hpf (0-2); WBC Urine None seen /hpf (0-3)
== END 2022-11-16 07:12 | disposition home or self-care (01) ==
LOC: CHSLAB 07:13
PROVIDERS: PCP Internal Medicine; Visit Provider Internal Medicine
DX: E78.2 Mixed hyperlipidemia (principal); R73.01 Impaired fasting glucose; E03.9 Hypothyroidism, unspecified; N39.0 Urinary tract infection, site not specified
CPT/HCPCS: 36415; 80053; 80061; 81001; 82550; 83036; 84439; 84443; 84481; 85025

== ENCOUNTER 2023-02-19 09:51 | Outpatient (RCR) | payer MEDICARE, SELFPAY ==
--- NOTE | 2023-02-19 11:00 | PTOPEVAL1 ---
Assessment and note entered by Juan Brown Evaluation Information Assessment Status Evaluation Diagnosis low back pain, unsteady gait, Parkinsonism Onset 02/13/23 Subjective Information Pt. reports that he has noticed his balance and walking starting to worsen as of recently. He states that he has back pain, but has for years, and it will come and go. He states that his inability to walk any distance and his balance are his biggest concern. He reports that he has not fallen recently, but has lost his balance several times. He is using a cane outside the house and uses his walker inside the house. He states that he is still driving short distances. He reports that he has bad shoulders and states that he has trouble dressing without assistance. He states that he is going to undergo more testing to determine why his mobility is worsening. He states that his goal is to improve his balance. Reported Pain Level Pain Score 0: Self Report Assessment PT Clinical Summary Pt. is an 82 year old male who enters the clinic due to impaired gait. He presents with impaired balance, impaired l.e. strength, functional decline, impaired u.e. mobility and impaired gait mechanics on this date. Continued skilled PT is indicated in order to improve these areas to allow the pt. to be able to complete all IADL's with improved safety and efficiency. Plan of Care Interventions Electrical Stimulation,Gait Training,Hot Pack/Cold Pack,Manual Therapy,Neuro Re-education,Patient/ Caregiver Educati,Therapeutic Activities, Therapeutic Exercise PT Services Indicated Yes Treatment Frequency and 3x/week x 12 visits Duration These treatments will address the objective and functional deficits as defined above. The patient will be advanced safely and appropriately in order for the patient to progress towards his/her prior level of function. Additional exercises will be introduced and as well as a comprehensive home exercise program upon discharge, if needed, ?to ensure carryover of functional gains achieved in the clinic. This treatment plan has been reviewed and agreement upon by the patient.
--- NOTE | 2023-02-19 11:01 | OPREHPOC ---
Outpatient Therapy Plan of Care This is a Multidisciplinary Plan of Care that may contain components documented by all disciplines (PT, OT, and ST.) PT Problem 1 PT Problem #1 Knowledge Deficit PT Goal 1 Goal Independent with a HEP addressing strength and endurance Target Visit 2 PT Problem 2 PT Problem #2 Impaired Gait PT Goal 1 Goal Pt. will demonstrate improve stride length with ambulation, with ability for swing phase extremity to pass the stance phase extremity on both right and left. Target Visit 12 PT Goal 2 Goal Pt. will complete a distance of 500' or greater during the 6 minute walk test. Target Visit 12 PT Problem 3 PT Problem #3 Impaired Functional Mobil PT Goal 1 Goal Pt. will improve his tinetti score to 19 or greater indicating improved safety.
--- NOTE | 2023-02-23 11:01 | OPREHPOC ---
Outpatient Therapy Plan of Care This is a Multidisciplinary Plan of Care that may contain components documented by all disciplines (PT, OT, and ST.) PT Problem 1 PT Problem #1 Knowledge Deficit PT Goal 1 Goal Independent with a HEP addressing strength and endurance Target Visit 2 Progress Met PT Problem 2 PT Problem #2 Impaired Gait PT Goal 1 Goal Pt. will demonstrate improve stride length with ambulation, with ability for swing phase extremity to pass the stance phase extremity on both right and left. Target Visit 12 PT Goal 2 Goal Pt. will complete a distance of 500' or greater during the 6 minute walk test. Target Visit 12 PT Problem 3 PT Problem #3 Impaired Functional Mobil PT Goal 1 Goal Pt. will improve his tinetti score to 19 or greater indicating improved safety. PT Problem 4 PT Problem #4 Impaired Range of Motion PT Goal 1 Goal 1. arom bilateral shoulder flexion to 90 degrees 2. functional reach to the belt behind back Target Visit 12
--- NOTE | 2023-02-23 11:01 | PTOPPROG ---
Assessment and note entered by JT File, PT Evaluation Information Assessment Status Progress Diagnosis adding bilateral shoulder pain/weakness Onset 02/13/23 Subjective Information patient has complained of issues with his bilateral shoulder. he has a new order to add shoulder rehab to his POC. Assessment PT Clinical Summary mr. noriega arrives to therapy today for his 3rd skilled PT visit. he presents with deficits still in balance, safety, ambulation, and LE strength. however, he has a new order to include shoulder pain and weakness. he displays poor shoulder active mobility and strength. he would benefit from addition of skilled PT to the shoulders to his current POC. shoulder goals added today. Plan of Care Interventions Electrical Stimulation,Gait Training,Hot Pack/Cold Pack,Manual Therapy,Neuro Re-education,Patient/ Caregiver Educati,Therapeutic Activities, Therapeutic Exercise PT Services Indicated Yes Treatment Frequency and continue skilled PT 3x weekly for 9 remaining Duration visits on current POC. These treatments will address the objective and functional deficits as defined above. The patient will be advanced safely and appropriately in order for the patient to progress towards his/her prior level of function. Additional exercises will be introduced and as well as a comprehensive home exercise program upon discharge, if needed, ?to ensure carryover of functional gains achieved in the clinic. This treatment plan has been reviewed and agreement upon by the patient.
--- NOTE | 2023-03-23 21:51 | OPREHPOC ---
Outpatient Therapy Plan of Care This is a Multidisciplinary Plan of Care that may contain components documented by all disciplines (PT, OT, and ST.) PT Problem 1 PT Problem #1 Knowledge Deficit PT Goal 1 Goal Independent with a HEP addressing strength and endurance Target Visit 2 Progress Met PT Problem 2 PT Problem #2 Impaired Gait PT Goal 1 Goal Pt. will demonstrate improve stride length with ambulation, with ability for swing phase extremity to pass the stance phase extremity on both right and left. Target Visit 16 Progress Not Met PT Goal 2 Goal Pt. will complete a distance of 500' or greater during the 6 minute walk test. Target Visit 16 Progress Not Met PT Problem 3 PT Problem #3 Impaired Functional Mobil PT Goal 1 Goal Pt. will improve his tinetti score to 19 or greater indicating improved safety. Progress Not Met PT Problem 4 PT Problem #4 Impaired Range of Motion PT Goal 1 Goal 1. arom bilateral shoulder flexion to 90 degrees 2. functional reach to the belt behind back Target Visit 16 Progress Not Met
--- NOTE | 2023-03-23 21:51 | PTOPREEVAL ---
Assessment and note entered by JT File, PT Evaluation Information Assessment Status Re-evaluation Diagnosis adding bilateral shoulder pain/weakness Onset 02/13/23 Subjective Information patient reports he feels alright this date. he reports no lower back pain, and his bilateral shoulder pain is mild. he reports improvements in his shoulder rom, but still unable to lift/use them. he reports no falls since starting therapy. he reports he does not want to use his walker outside of the home. he reports he would like to continue therapy. he reports he does attend fall prevention class 2x weekly. Assessment PT Clinical Summary mr. noriega presents to skilled PT for his 12th skilled PT visit. as of this date, he has made some progress in his tinetti balance score and bilateral shoulder active and passive rom. however , he still presents poor ambulation safety, high fall risk, and limited use of the bilateral UE's. given his lack of signifcant progress/goals met in therapy and the his diagnosis of parksinons. patient may benefit best from maintenance therapy. as of this date, we will transition him into a maintenance therapy protocol and continue to work on maintaining his mobility, strength, balance, and independence to maintain his mobility and quality of life. Plan of Care Interventions Electrical Stimulation,Gait Training,Hot Pack/Cold Pack,Manual Therapy,Neuro Re-education,Patient/ Caregiver Educati,Therapeutic Activities, Therapeutic Exercise PT Services Indicated Yes Treatment Frequency and transition to maintenance therapy 1x weekly for 4 Duration visits These treatments will address the objective and functional deficits as defined above. The patient will be advanced safely and appropriately in order for the patient to progress towards his/her prior level of function. Additional exercises will be introduced and as well as a comprehensive home exercise program upon discharge, if needed, ?to ensure carryover of functional gains achieved in the clinic. This treatment plan has been reviewed and agreement upon by the patient.
--- NOTE | 2023-04-11 11:36 | OPREHPOC ---
Outpatient Therapy Plan of Care This is a Multidisciplinary Plan of Care that may contain components documented by all disciplines (PT, OT, and ST.) PT Problem 1 PT Problem #1 Knowledge Deficit PT Goal 1 Goal Independent with a HEP addressing strength and endurance Target Visit 2 Progress Met PT Problem 2 PT Problem #2 Impaired Gait PT Goal 1 Goal Pt. will demonstrate improve stride length with ambulation, with ability for swing phase extremity to pass the stance phase extremity on both right and left. Target Visit 16 Progress Met Comment continue with maintenance therapy to work on the above goal to maintain independence and community mobility. PT Goal 2 Goal Pt. will complete a distance of 500' or greater during the 6 minute walk test. Target Visit 20 Progress Partially Met Comment continue with maintenance therapy to work on the above goal to maintain independence and community mobility. PT Problem 3 PT Problem #3 Impaired Functional Mobil PT Goal 1 Goal Pt. will improve his tinetti score to 19 or greater indicating improved safety. Target Visit 20 Progress Not Met Comment continue to work on balance via maintenance therapy program PT Problem 4 PT Problem #4 Impaired Range of Motion PT Goal 1 Goal 1. arom bilateral shoulder flexion to 90 degrees 2. functional reach to the belt behind back Target Visit 20 Progress Not Met Comment continue to work on this through maintenance therapy to work on his independence, balance, and overall quality of life.
--- NOTE | 2023-04-11 11:36 | PTOPREEVAL ---
Assessment and note entered by JT File, PT Evaluation Information Assessment Status Re-evaluation Diagnosis adding bilateral shoulder pain/weakness Onset 02/13/23 Subjective Information patient reports he feels Good today. he reports no pain, and no falls. Reported Pain Level Pain Score 0: Self Report Assessment PT Clinical Summary mr. noriega presents to skilled PT services for his 4th skilled therapy visit since beginning maintenance therapy. as of this date, he displays maintenance in performance of 5x sit to stand, improvement in TUG performance, improved ambulation distance during 6 minute walk test, and improvement in raw score of the tinetti. however, he continues to display a high fall risk, and due to the nature of his parkinsons diagnosis/age, deficits in balance/safety with standing/ ambulation. he continues to be a good candidate for maintenance therapy skilled PT to work on maintaining his balance, strength, ambulation, and functional activity performance to avoid future falls or regression in independence/quality of life. Plan of Care Interventions Electrical Stimulation,Gait Training,Hot Pack/Cold Pack,Manual Therapy,Neuro Re-education,Patient/ Caregiver Educati,Therapeutic Activities, Therapeutic Exercise PT Services Indicated Yes Treatment Frequency and continue maintendance skilled PT 1x weekly for 4 Duration more visits These treatments will address the objective and functional deficits as defined above. The patient will be advanced safely and appropriately in order for the patient to progress towards his/her prior level of function. Additional exercises will be introduced and as well as a comprehensive home exercise program upon discharge, if needed, ?to ensure carryover of functional gains achieved in the clinic. This treatment plan has been reviewed and agreement upon by the patient.
--- NOTE | 2023-05-09 11:08 | OPREHPOC ---
Outpatient Therapy Plan of Care This is a Multidisciplinary Plan of Care that may contain components documented by all disciplines (PT, OT, and ST.) PT Problem 1 PT Problem #1 Knowledge Deficit PT Goal 1 Goal Independent with a HEP addressing strength and endurance Target Visit 2 Progress Met PT Problem 2 PT Problem #2 Impaired Gait PT Goal 1 Goal Pt. will demonstrate improve stride length with ambulation, with ability for swing phase extremity to pass the stance phase extremity on both right and left. Target Visit 16 Progress Met Comment continue with maintenance therapy to work on the above goal to maintain independence and community mobility. PT Goal 2 Goal Pt. will complete a distance of 500' or greater during the 6 minute walk test. achieved distance pt. will complete a distance of 600ft or greater during the 6 minute walk test with WW and step through bilateral LE mechanics. Target Visit 24 Progress Partially Met Comment continue with maintenance therapy to work on the above goal to maintain independence and community mobility. PT Problem 3 PT Problem #3 Impaired Functional Mobil PT Goal 1 Goal Pt. will improve his tinetti score to 19 or greater indicating improved safety. Target Visit 24 Progress Not Met Comment continue to work on balance via maintenance therapy program PT Problem 4 PT Problem #4 Impaired Range of Motion PT Goal 1 Goal 1. arom bilateral shoulder flexion to 90 degrees 2. functional reach to the belt behind back Target Visit 24 Progress Not Met Comment continue to work on this through maintenance therapy to work on his independence, balance, and overall quality of life.
--- NOTE | 2023-05-09 11:09 | PTOPREEVAL ---
Assessment and note entered by JT File, PT Evaluation Information Assessment Status Re-evaluation Diagnosis adding bilateral shoulder pain/weakness Onset 02/13/23 Subjective Information patient reports he recently had a change in his parkinsons medications, and he has really been having a hard time getting around since they lowered his dosages. he reports he has had no falls, but has come close a lot more times than before his medication change. he reports he has been weaker, increased difficulty getting up from a chair, and moving/walking a lot slower since the medication changes. Reported Pain Level Pain Score 0: Self Report Assessment PT Clinical Summary mr. noriega presents to skilled PT for re- evaluation after the last 4 weeks of maintenance therapy for his parkinsons, generalized weakness, balance, and decreased UE function. he presents today with decreased performance on the TUG and 5x sit to stand, and continued high fall risk per the tinetti. his ambulation distance in 6 MWT is improved. patient likely has a a regression in performance due to a decrease in dosage of his parkinsons medications. given his medicationg changes affecting his balance/ambulation/ transferrs, parkinsons, and continued high fall risk, he would benefit from continued skilled maintenance therapy to prevent or slow the regression in his independence and functional abilities. Plan of Care Interventions Gait Training,Manual Therapy,Neuro Re-education, Patient/Caregiver Educati,Therapeutic Activities, Therapeutic Exercise PT Services Indicated Yes Treatment Frequency and continue skilled PT 1x weekly for 4 more visits in Duration maintenance therapy plan. These treatments will address the objective and functional deficits as defined above. The patient will be advanced safely and appropriately in order for the patient to progress towards his/her prior level of function. Additional exercises will be introduced and as well as a comprehensive home exercise program upon discharge, if needed, ?to ensure carryover of functional gains achieved in the clinic. This treatment plan has been reviewed and agreement upon by the patient.
== END 2023-05-16 10:46 | disposition still patient (30) ==
LOC: CHSPT 09:51
PROVIDERS: PCP Internal Medicine
DX: M54.50 Low back pain, unspecified (principal); G20.C Parkinsonism, unspecified; R26.81 Unsteadiness on feet
CPT/HCPCS: 97110; 97112; 97150; 97162; 97530; 97750

== ENCOUNTER 2023-03-12 23:17 | Emergency (ER) | payer MEDICARE, SELFPAY ==
--- NOTE | ~2023-03-12 | XR_ITS ---
EXAMINATION: XR chest 1V portable Exam Date/Time: 03/12/2023 22:30 DIRECT SERVICE WORKER HISTORY: chest pain/weakness Comparison: 02/15/2017. RESULT: Lines, tubes, and devices: Intact sternotomy wires and sternal fixation plates. Abandoned epicardial pacing wires. Lungs and pleura: Clear. Cardiomediastinal silhouette: Stable. Other: Curvilinear gas collection under the right hemidiaphragm which appears to be intraluminal. No acute osseous finding. Chronic appearing left posterior rib fractures. IMPRESSION: No acute cardiopulmonary process. Curvilinear gas collection under the right hemidiaphragm, likely related to colonic gas and colonic i nterposition, noting that pneumoperitoneum could appear similarly. If there are no abdominal complain ts, this finding could be reasonably evaluated with an abdominal radiograph series that includes a le ft lateral decubitus view of the abdomen. Otherwise, recommend CT of the abdomen and pelvis with cont rast. Reviewed, dictated and finalized at location K. CT SERVICE WORKER IMPRESSION: No acute cardiopulmonary process. Curvilinear gas collection under the right hemidiaphragm, likely related to col onic gas and colonic interposition, noting that pneumoperitoneum could appear s imilarly. If there are no abdominal complaints, this finding could be reasonabl y evaluated with an abdominal radiograph series that includes a left lateral de cubitus view of the abdomen. Otherwise, recommend CT of the abdomen and pelvis with contrast.
--- NOTE | ~2023-03-12 | CT_ITS ---
Clinical Indication: Epigastric pain CT Scan of the Chest, Abdomen, and Pelvis with Contrast: Technique: Contiguous sections were acquired throughout the chest, abdomen, and pelvis after intraven ous administration of 100 cc of Omnipaque 350. Dose reduction technique was used on this scan by scotty tam automated exposure control and iterative reconstruction technique. The dose-length product (DL P) was 1005.08 mGy-cm. Findings: Visualized lung bases are clear. The liver, spleen, pancreas, gallbladder, right adrenal gland, and kidneys are within normal limits. Parapelvic renal cysts are present. There is a 3.3 cm left adrenal nodule with macroscopic fat, consi stent with myelolipoma. No evidence of aortic aneurysm or dissection. There are atherosclerotic calci fications of the aorta. No lymphadenopathy. No bowel obstruction or bowel wall thickening. There is no evidence to suggest acute appendicitis. Fa t-containing umbilical hernia noted. Urinary bladder is unremarkable. No definite pelvic mass seen. There is mild streak artifact in the p cali from left hip arthroplasty. No ascites. Impression: No acute abnormality evident. No aortic aneurysm or dissection. Fat-containing umbilical hernia. 3.3 cm left adrenal myelolipoma. Reviewed, dictated and finalized at location . ISION AGRICULTURE TECHNICIAN Impression: No acute abnormality evident. No aortic aneurysm or dissection. Fat-containing umbilical hernia. 3.3 cm left adrenal myelolipoma.
[2023-03-12 23:20] VITALS: O2SAT 99
--- NOTE | 2023-03-12 23:24 | ECG_ITS ---
Measurements Intervals [place] Rate: 55 P: 17 NH: 213 QRS: -39 QRSD: 156 T: 6 QT: 443 QTc: 427 Interpretive Statements SINUS BRADYCARDIA WITH MARKED SINUS ARRHYTHMIA WITH FIRST DEGREE AV BLOCK LEFT AXIS DEVIATION RIGHT BUNDLE BRANCH BLOCK ABNORMAL ECG NO PREVIOUS ECG AVAILABLE FOR COMPARISON Electronically Signed On 03-13-2023 6:42:17 AVIATION ENGINEER by Rosalio Miller D.O.
[2023-03-12 23:26] VITALS: BP 129/74; PULSE 65; RESP 19; TEMP 36.1; O2SAT 94
[2023-03-12 23:30] VITALS: PULSE 65
--- NOTE | 2023-03-12 23:38 | ED.GENADULT ---
HPI - General Adult General Chief complaint: Chest Pain Stated complaint: chest pain History of Present Illness HPI narrative: 82yo man history of afib on xarelto, chronic pedal edema (sleeps in recliner every night) presents with new onset midsternal chest pain worse with deep breathing and movement, and moreso, a sharp knife-like pain under the ribs in the epigastric area. Onset after he had gone to sleep. No nausea, vomiting, diarrhea, fever. Related Data Home Medications Medication Instructions Recorded Confirmed atorvastatin 20 mg tablet 20 mg HS 07/15/21 03/13/23 bimatoprost 0.01 % eye drops 1 drp HS 07/15/21 03/13/23 (Krish) carbidopa 25 mg-levodopa 250 mg 2 tablet PO TID 07/15/21 03/13/23 tablet furosemide 20 mg tablet 40 mg DAILY 07/15/21 03/13/23 levothyroxine 75 mcg tablet 75 mcg DAILY 07/15/21 03/13/23 aspirin 81 mg tablet,delayed 81 mg PO DAILY 06/16/22 03/13/23 release brimonidine 0.2 %-timolol 0.5 % 1 drp BID 06/16/22 03/13/23 eye drops midodrine 5 mg tablet 5 mg PO TID 06/16/22 03/13/23 potassium chloride 20 mEq 40 meq PO DAILY 06/16/22 03/13/23 tablet,extended release pramipexole 1 mg tablet See Rx Instructions .Route .COMPLEX 03/13/23 03/13/23 rivaroxaban 20 mg tablet (Xarelto) 20 mg PO DAILY 03/13/23 03/13/23 solifenacin 10 mg tablet 10 mg PO DAILY 03/13/23 03/13/23 terazosin 10 mg capsule 10 mg PO HS 03/13/23 03/13/23 Allergies Allergy/AdvReac Type Severity Reaction Status Date / Time No Known Allergies Allergy Verified 05/03/22 14:37 Review of Systems Review of Systems: All systems reviewed & are unremarkable except as noted in HPI and below Constitutional: Constitutional: Denies chills, Denies fatigue and Denies fever(s) Cardiovascular: Cardiovascular: Reports chest pain and Denies radiating jaw, neck or arm pain Respiratory: Respiratory: Denies chest congestion, Denies cough and Denies wheezing Gastrointestinal: Gastrointestinal: Reports abdominal pain and Denies diarrhea PMFSH Family History Family History Other Cerebrovascular accident Family history of arthritis Hypertension Social History Social History Smoking status: Never smoker Alcohol intake: never Substance use: never Substance use type: does not use Lack of Transportation: No Lack of Food: Never True Current Housing: I Have Housing Concerned About Future Housing: No Difficulty Paying Gas/Electric Bills: No Difficulty Paying for Meds: No Currently Unemployed: No Education: High School Diploma/GED Difficulty w/ Childcare or Family Care: No Spiritual care concerns: No Exam Const: General: healthy appearing and alert Nutritional Appearance: well nourished Eyes: Conjunctivae: conjunctivae normal Resp: Effort & Inspection: normal respiratory effort Auscultation: clear to auscultation bilaterally GI: Inspection: non-distended GI Palp: Yes Soft to palpation and Yes Tenderness to palpation present (GI) (epigastric and bilateral upper quadrant) Skin: General skin exam: normal color, no jaundice and no pallor Neuro: General: patient oriented x3 and moves all extremities Extrem: General: no clubbing, cyanosis or edema Course Vital Signs Vital signs: Vital Signs Pulse Oximetry 99 03/12/23 23:20 Oxygen Delivery Room Air 03/12/23 23:20 Temperature 36.1 C L 03/12/23 23:26 Pulse Rate 70 03/13/23 00:55 Respiratory Rate 14 03/13/23 00:55 Blood Pressure 153/84 H 03/13/23 00:55 Pulse Oximetry 95 03/13/23 00:55 Oxygen Delivery Room Air 03/13/23 00:16 Medical Decision Making MDM Narrative Medical decision making narrative: acute epigastric pain radiating into the central chest DDx gastritis, reflux, esophagitis, pancreatitis, biliary colic, aortic pathology, coronary syndrome, costochondritis, no evidence of venou
[2023-03-12 23:43] LABS: Basophils Absolute Auto 0.09 K/mm3 (0.00-0.10); Basophils Percent Auto 1.4 % (0.0-1.0); Eosinophils Absolute Auto 0.24 K/mm3 (0.02-0.50); Eosinophils Percent Auto 3.6 % (1.0-6.0); Hematocrit 35.2 % (37.0-46.0); Hemoglobin 11.5 g/dL (12.4-15.3); Immature Granulocyte Absolute 0.03 K/mm3 (0.00-0.00); Immature Granulocyte Percent A 0.5 % (0.0-0.0); Lymphocytes Absolute Auto 1.81 K/mm3 (1.10-4.50); Lymphocytes Percent Auto 27.4 % (18.0-42.0); Mean Corpuscular HGB Conc 32.7 g/dL (32.0-36.0); Mean Corpuscular Hemoglobin 32.4 pg (27.0-31.0); Mean Corpuscular Volume 99.2 fL (78.0-102.0); Mean Platelet Volume 9.1 fl (8.7-11.0); Monocytes Absolute Auto 0.52 K/mm3 (0.10-0.90); Monocytes Percent Auto 7.9 % (2.0-11.0); Neutrophils Absolute Auto 3.9 K/mm3 (1.7-7.2); Neutrophils Percent Auto 59.2 % (50.0-70.0); Platelet Count Result 156 K/mm3 (150-420); Red Blood Count 3.55 M/mm3 (4.70-6.10); Red Cell Distribution Width 12.4 % (11.6-14.4); White Blood Count 6.6 K/mm3 (4.8-10.8)
[2023-03-12 23:50] VITALS: PULSE 65; RESP 18; O2SAT 96
[2023-03-12 23:58] LABS: INR 1.4; Partial Thromboplastin Time 39.6 SEC (23.90-30.70); Prothrombin Time 15.1 Seconds (9.50-12.10)
[2023-03-13] VITALS (7 sets, daily range): BP systolic 114–153; BP diastolic 66–84; PULSE 62–70; RESP 14–20; TEMP 36.6; O2SAT 93–95
[2023-03-13] MEDS: FAMOTIDINE 20 MG/2 ML VIAL 40 MG IV PUSH (00:01)
[2023-03-13] MEDS: diphenhydrAMINE HCl INJ 50 MG/ML VIAL 12.5 MG IV PUSH (00:04)
[2023-03-13] MEDS: KETOROLAC 30 MG/ML VIAL (*BKC) 15 MG IV PUSH (00:04)
[2023-03-13] MEDS: MORPHINE SULFATE (*CRX) 4 MG/ML INJ IV PUSH (00:04)
[2023-03-13 00:05] LABS: Lactic Acid Reflex 0.8 mmol/L (0.4-2.0)
[2023-03-13 00:10] LABS: Alanine Aminotransferase 11 U/L (16-63); Alkaline Phosphatase 103 U/L (46-116); Anion Gap 7 mmol/L (8-16); Aspartate Amino Transferase 13 U/L (15-37); Bilirubin,Total 0.3 mg/dL (0.00-1.00); Blood Urea Nitrogen 26 mg/dL (7-18); Calcium 8.7 mg/dL (8.5-10.1); Carbon Dioxide 29 mmol/L (21-32); Chloride 105 mmol/L (98-108); Estimated CRCL calculation 62 ml/min; Estimated Glomerular Filt Rate > 60; Glucose 135 mg/dL (70-99); Lipase 26 U/L (16-77); NT Pro B Type Natriuretic Pept 291 pg/mL (0-450); Osmolality Calculated 298 mOsm/kg (285-295); Sodium 141 mmol/L (136-145); Total Protein 6.2 g/dL (6.4-8.2); Troponin I 9.3 ng/L (0.00-60.4)
--- NOTE | 2023-03-13 01:02 | PC.NURSE ---
Pt resting at this time c family at bedside, VSS, monitor shows SR. Pt reports pain is much better, POC for awaiting CT results discussed. Call almendarez at pt side.
== END 2023-03-13 01:58 | disposition home or self-care (01) ==
PROVIDERS: Emergency Provider Emergency Medicine; PCP Internal Medicine
DX: R10.13 Epigastric pain (principal); R07.9 Chest pain, unspecified; I11.0 Hypertensive heart disease with heart failure; I50.9 Heart failure, unspecified; I48.91 Unspecified atrial fibrillation; Z79.899 Other long term (current) drug therapy; Z79.82 Long term (current) use of aspirin; Z79.01 Long term (current) use of anticoagulants
CPT/HCPCS: 36415; 71045; 71275; 74174; 80053; 83605; 83690; 83880; 84484; 85025; 85610; 85730; 93005; 96374; 96375; 99284; J1200; J1885; J2270; Q9967

== ENCOUNTER 2023-04-28 09:10 | Emergency (ER) | payer MEDICARE, SELFPAY ==
[2023-04-28 09:13] VITALS: BP 123/72; PULSE 70; RESP 18; TEMP 36.7; O2SAT 98
--- NOTE | 2023-04-28 09:14 | ED.WOUNDLAC ---
HPI - Wound/Laceration General Stated Complaint: wound check Time Seen by Provider: 04/28/23 09:13 Source: patient and family Mode of arrival: ambulatory Limitations: no limitations History of Present Illness HPI narrative: this is an 82-year-old male that presents after he had a laceration to his right forearm and saw his primary had sutures placed, at the primary care physician's office the site had also a skin tear and had difficulty controlling the bleeding and that is why sutures were placed, and also had a Donny wrap place that was extremely tight and family could not place scissors in the the Donny wrap to to remove it. Hand around the tight Donny wrap / arm was some mildly swollen but has good range of motion in his elbow his wrist with a strong brisk radial pulse on the left of the wound is currently not bleeding and sutures in place and does have follow-up with his primary on Sunday. Onset (ago): day(s) Location: other Extremity Location: Left: forearm ( wound check on a laceration that occurred on Sunday) Place: home Patient tetanus UTD: Yes Context: accidental Related Data Home Medications Medication Instructions Recorded Confirmed atorvastatin 20 mg tablet 20 mg HS 07/15/21 03/13/23 bimatoprost 0.01 % eye drops 1 drp HS 07/15/21 03/13/23 (Krish) carbidopa 25 mg-levodopa 250 mg 2 tablet PO TID 07/15/21 03/13/23 tablet furosemide 20 mg tablet 40 mg DAILY 07/15/21 03/13/23 levothyroxine 75 mcg tablet 75 mcg DAILY 07/15/21 03/13/23 aspirin 81 mg tablet,delayed 81 mg PO DAILY 06/16/22 03/13/23 release brimonidine 0.2 %-timolol 0.5 % 1 drp BID 06/16/22 03/13/23 eye drops midodrine 5 mg tablet 5 mg PO TID 06/16/22 03/13/23 potassium chloride 20 mEq 40 meq PO DAILY 06/16/22 03/13/23 tablet,extended release pramipexole 1 mg tablet See Rx Instructions .Route .COMPLEX 03/13/23 03/13/23 rivaroxaban 20 mg tablet (Xarelto) 20 mg PO DAILY 03/13/23 03/13/23 solifenacin 10 mg tablet 10 mg PO DAILY 03/13/23 03/13/23 terazosin 10 mg capsule 10 mg PO HS 03/13/23 03/13/23 Allergies Allergy/AdvReac Type Severity Reaction Status Date / Time No Known Allergies Allergy Verified 05/03/22 14:37 Review of Systems Review of Systems: All systems reviewed & are unremarkable except as noted in HPI and below PMFSH Past Medical History Medical History Afib HLD (hyperlipidemia) Parkinson disease Family History Family History Other Cerebrovascular accident Family history of arthritis Hypertension Social History Social History Smoking status: Never smoker Alcohol intake: never Substance use: never Substance use type: does not use Lack of Transportation: No Lack of Food: Never True Current Housing: I Have Housing Concerned About Future Housing: No Difficulty Paying Gas/Electric Bills: No Difficulty Paying for Meds: No Currently Unemployed: No Education: High School Diploma/GED Difficulty w/ Childcare or Family Care: No Spiritual care concerns: No Exam Const: General: healthy appearing, no acute distress and alert Nutritional Appearance: well nourished Neck: Neck: normal visual inspection Chest: Chest palpation & inspection: normal inspection of the chest Resp: Effort & Inspection: normal respiratory effort Auscultation: clear to auscultation bilaterally GI: GI Palp: Yes Soft to palpation Skin: Wounds: wounds noted Other: Area on the left forearm with skin tear and sutures in place currently not bleeding Extrem: General: edema Other: arm was swollen around a tight Donny wrap that was placed at his primary care physician's office Course Course Emergency Course: arm was swollen around the [employer] Donny wrap that appeared replaced very tightly and was removed skin tear suture site on his left for
== END 2023-04-28 09:25 | disposition home or self-care (01) ==
PROVIDERS: Emergency Provider Emergency Medicine; PCP Internal Medicine
DX: S51.811D Laceration without foreign body of right forearm, subsequent encounter (principal); I48.91 Unspecified atrial fibrillation; E78.5 Hyperlipidemia, unspecified; G20.A1 Parkinson's disease without dyskinesia, without mention of fluctuations; W45.8XXD Other foreign body or object entering through skin, subsequent encounter
CPT/HCPCS: 99282

== ENCOUNTER 2023-05-17 07:09 | Outpatient (CLI) | payer MEDICARE, SELFPAY ==
[2023-05-17 07:25] LABS: Basophils Absolute Auto 0.09 K/mm3 (0.00-0.10); Basophils Percent Auto 1.6 % (0.0-1.0); Eosinophils Absolute Auto 0.18 K/mm3 (0.02-0.50); Eosinophils Percent Auto 3.1 % (1.0-6.0); Hematocrit 39.4 % (37.0-46.0); Immature Granulocyte Absolute 0.02 K/mm3 (0.00-0.00); Immature Granulocyte Percent A 0.3 % (0.0-0.0); Lymphocytes Absolute Auto 1.61 K/mm3 (1.10-4.50); Mean Corpuscular Hemoglobin 31.3 pg (27.0-31.0); Mean Corpuscular Volume 94.9 fL (78.0-102.0); Mean Platelet Volume 9.1 fl (8.7-11.0); Monocytes Absolute Auto 0.46 K/mm3 (0.10-0.90); Neutrophils Absolute Auto 3.4 K/mm3 (1.7-7.2); Platelet Count Result 167 K/mm3 (150-420); Red Blood Count 4.15 M/mm3 (4.70-6.10); Red Cell Distribution Width 12.1 % (11.6-14.4); White Blood Count 5.7 K/mm3 (4.8-10.8)
[2023-05-17 07:30] LABS: Appearance Urine Clear (Clear); Bilirubin Urine Negative (Negative); Blood Urine Negative (Negative); Color Urine Yellow (Yellow); Glucose Urine UA Negative (Negative); Ketones Urine Trace (Negative); Leukocyte Esterase Ur Trace (Negative); Nitrate Urine Negative (Negative); Protein Urine Negative (Negative); Specific Grav Ur 1.015 (1.010-1.020)
[2023-05-17 07:41] LABS: Add Urine Microscopic? YES; RBC Urine None seen /hpf (0-2); WBC Urine 0-3 /hpf (0-3)
[2023-05-17 07:42] LABS: Bacteria Urine Rare /hpf
[2023-05-17 08:16] LABS: Alanine Aminotransferase 19 U/L (16-63); Albumin Level 3.4 g/dL (3.4-5.0); Alkaline Phosphatase 129 U/L (46-116); Anion Gap 9 mmol/L (8-16); Aspartate Amino Transferase 15 U/L (15-37); Bilirubin,Total 0.6 mg/dL (0.00-1.00); Blood Urea Nitrogen 20 mg/dL (7-18); Calcium 8.7 mg/dL (8.5-10.1); Carbon Dioxide 27 mmol/L (21-32); Chloride 101 mmol/L (98-108); Cholesterol 132 mg/dL (0-200); Creatine Kinase 86 U/L (39-308); Estimated Glomerular Filt Rate > 60; Free T4 Free Thyroxine 1.02 ng/dL (0.76-1.46); Glucose 98 mg/dL (70-99); HDL Direct 44 mg/dL (40-60); LDL Cholesterol Calculated 74 mg/dL (<130); NT Pro B Type Natriuretic Pept 317 pg/mL (0-450); Osmolality Calculated 286 mOsm/kg (285-295); Potassium 4.4 mmol/L (3.5-5.1); Sodium 137 mmol/L (136-145); Thyroid Stimulating Hormone 2.98 uIU/mL (0.36-3.74); Total Protein 6.6 g/dL (6.4-8.2); Triglycerides 72 mg/dL (0-150)
== END 2023-05-17 07:10 | disposition home or self-care (01) ==
LOC: CHSLAB 07:11
PROVIDERS: PCP Internal Medicine; Visit Provider Internal Medicine
DX: E78.2 Mixed hyperlipidemia (principal); I10 Essential (primary) hypertension; R73.01 Impaired fasting glucose; E03.4 Atrophy of thyroid (acquired); R53.82 Chronic fatigue, unspecified; I48.19 Other persistent atrial fibrillation; I50.9 Heart failure, unspecified
CPT/HCPCS: 36415; 80053; 80061; 81001; 82550; 83036; 83880; 84439; 84443; 84481; 85025

== ENCOUNTER 2023-05-23 10:49 | Outpatient (RCR) | payer MEDICARE, SELFPAY ==
--- NOTE | 2023-06-06 11:32 | OPREHPOC ---
Outpatient Therapy Plan of Care This is a Multidisciplinary Plan of Care that may contain components documented by all disciplines (PT, OT, and ST.) PT Problem 1 PT Problem #1 Knowledge Deficit PT Goal 1 Goal Independent with a HEP addressing strength and endurance Target Visit 2 Progress Met PT Problem 2 PT Problem #2 Impaired Gait PT Goal 1 Goal Pt. will demonstrate improve stride length with ambulation, with ability for swing phase extremity to pass the stance phase extremity on both right and left. Target Visit 28 Progress Partially Met Comment continue with maintenance therapy to work on the above goal to maintain independence and community mobility. PT Goal 2 Goal Pt. will complete a distance of 500' or greater during the 6 minute walk test. achieved distance pt. will complete a distance of 600ft or greater during the 6 minute walk test with WW and step through bilateral LE mechanics. not met Target Visit 28 Progress Partially Met Comment continue with maintenance therapy to work on the above goal to maintain independence and community mobility. PT Problem 3 PT Problem #3 Impaired Functional Mobil PT Goal 1 Goal 1. Pt. will improve his tinetti score to 19 or greater indicating improved safety. 2. TUG to be performed in 25 seconds or less with 1 attempt and safe transfer from sit to stand. 3. 5x sit to stand to be performed in under 25 seconds or less with 1 attempt and safe mechanics per stand bout. Target Visit 28 Progress Not Met Comment continue to work on balance via maintenance therapy program PT Problem 4 PT Problem #4 Impaired Range of Motion PT Goal 1 Goal 1. arom bilateral shoulder flexion to 90 degrees 2. functional reach to the belt behind back Target Visit 28 Progress Not Met Comment continue t
--- NOTE | 2023-06-06 11:32 | PTOPREEVAL ---
Assessment and note entered by JT File, PT Evaluation Information Assessment Status Re-evaluation Diagnosis unsteady gait, parkinsons disease Onset 02/13/23 Subjective Information patient reports he fell ana maría night in the shop at home. he reports he was not using a walker in the shop. he reports he was using a cane. he reports he dropped something on the floor and bent over to pick it up. he reports he fell forward and hit his head. he reports he has no pain. he reports he did not see his MD. Reported Pain Level Pain Score 0: Self Report Assessment PT Clinical Summary mr. noriega presents to skilled PT for 24th total skilled therapy visit for Parkinson's, unsteady gait, and bilateral UE deficits in rom and strength. he has been attending skilled PT 1x weekly for the past 3 months. he had his 1st fall this week since beginning therapy back in February. his fall seems to be an error in judgement and not due to a worsening in condition. he has maintained his tinetti, tug, 5x sit to stand, and 6 minute walk scores since his last maintenance therapy re-evaluation. therefore, patient would benefit from continued skilled PT in a maintenance program with better judgement on safety using only a WW for all standing and ambulation activities including at home. he is going to see PCP today for evaluation after fall. patient has been doing well to manage no falls since beginning therapy and maintenance program, and this 1 fall due to a lack of judgement on appropriate AD should not defer his continuation in the program. he does continue to be a high fall risk due to both his objective testing and his neurological diagnosis of Parkinson's disease. Plan of Care Interventions Therapeutic Exercise,Patient/Caregiver Educati, Manual Therapy,Neuro Re-education,Therapeutic Activities,Gait Training PT Services Indicated Yes Treatment Frequency and continue skilled PT 1x weekly for 4 more visits in Duration a maintenance program/format. These treatments will address the objective and functional deficits as defined above. The patient will be advanced safely and appropriately in order for the patient to progress towards his/her prior level of function. Additional exercises will be introduced and as well as a comprehensive home exercise program upon discharge, if needed, ?to ensure carryover of functional gains achieved in the clinic. This treatment plan has been reviewed and agreement upon by the patient.
--- NOTE | 2023-07-04 10:55 | OPREHPOC ---
Outpatient Therapy Plan of Care This is a Multidisciplinary Plan of Care that may contain components documented by all disciplines (PT, OT, and ST.) PT Problem 1 PT Problem #1 Knowledge Deficit PT Goal 1 Goal Independent with a HEP addressing strength and endurance Target Visit 2 Progress Met PT Problem 2 PT Problem #2 Impaired Gait PT Goal 1 Goal Pt. will demonstrate improve stride length with ambulation, with ability for swing phase extremity to pass the stance phase extremity on both right and left. Target Visit 28 Progress Met Comment . PT Goal 2 Goal Pt. will complete a distance of 500' or greater during the 6 minute walk test. achieved distance pt. will complete a distance of 600ft or greater during the 6 minute walk test with WW and step through bilateral LE mechanics. not met Target Visit 28 Progress Partially Met Comment . PT Problem 3 PT Problem #3 Impaired Functional Mobil PT Goal 1 Goal 1. Pt. will improve his tinetti score to 19 or greater indicating improved safety. 2. TUG to be performed in 25 seconds or less with 1 attempt and safe transfer from sit to stand. 3. 5x sit to stand to be performed in under 25 seconds or less with 1 attempt and safe mechanics per stand bout. Target Visit 28 Progress Partially Met Comment . PT Problem 4 PT Problem #4 Impaired Range of Motion PT Goal 1 Goal 1. arom bilateral shoulder flexion to 90 degrees 2. functional reach to the belt behind back Target Visit 28 Progress Not Met Comment . PT Problem 5 PT Problem #5 Impaired Safety Awareness PT Goal 1 Goal 1. patient to use walker at all times for standing activities to improve safety and limit risk for falls. Targ
--- NOTE | 2023-07-04 10:55 | PTOPDC ---
Assessment and note entered by JT File, PT Evaluation Information Assessment Status Discharge Diagnosis unsteady gait, parkinsons disease Onset 02/13/23 Subjective Information patient reports he is doing pretty well today. he reports no falls since his last fall prior to his last re-evaluation on 06/06/23. he reports he continues to only use his walker for therapy. he reports he uses a cane otherwise at home and in the community. he is attending 2x weekly fall prevention class on tuesdays and . Reported Pain Level Pain Score 0: Self Report Assessment PT Clinical Summary mr. noriega presents to skilled PT for re- evaluation of his last POC of maintenance therapy. he maintains score on all balance and ambulation measurements today. he also has continued to maintain improvements and measurements on ambulation and balance activities over the last few re-evaluations. he is attending 2x weekly fall prevention class. he continues to use the cane for ambulation outside of therapy despite education that the walker is safest. as of this date, we are going to trial DC from skilled PT/ maintenance PT to perform fall prevention class only. patient will follow up with any new falls, regression of ambulation/balance, or new symptoms. Plan of Care PT Services Indicated Yes
== END 2023-07-04 11:19 | disposition home or self-care (01) ==
LOC: CHSPT 10:49
PROVIDERS: PCP Internal Medicine
DX: M54.50 Low back pain, unspecified (principal); G20.C Parkinsonism, unspecified; M25.511 Pain in right shoulder; M25.512 Pain in left shoulder; R26.81 Unsteadiness on feet; R26.9 Unspecified abnormalities of gait and mobility
CPT/HCPCS: 97112; 97150; 97530; 97750

== ENCOUNTER 2023-06-06 14:49 | Outpatient (CLI) | payer MEDICARE, SELFPAY ==
--- NOTE | ~2023-06-06 | CT_ITS ---
EXAMINATION: CT brain wo con DATE: 06/06/2023 15:07 INDICATION: Patient fell and struck head 2 Single. No loss of consciousness. TECHNIQUE: Computed tomography (CT) of the head was performed without intravenous contrast. The mA wa s adjusted according to patient size. Iterative reconstruction technique was employed. Exam dose: 68 1.00 mGy-cm total exam DLP. COMPARISON: CT head FINDINGS: Moderate left frontal cephalohematoma is detected. No coup or contrecoup intracranial injur y is evident. Bilateral vertebral artery and prominent bilateral carotid siphon and supraclinoid internal carotid a rtery calcification. No intracranial mass lesion or hemorrhage is detected. No midline shift or mass effect. Moderate cerebellar and cerebral volume loss. No subdural or epidural hematoma. No skull fracture or bone destruction is detected. IMPRESSION: Left frontal cephalohematoma; no skull fracture or acute intracranial finding Cerebral atherosclerosis Reviewed, dictated and finalized at [facility]. Reviewed, dictated and finalized at location [facility]. GER OF IT IMPRESSION: Left frontal cephalohematoma; no skull fracture or acute intracran ial finding Cerebral atherosclerosis
== END 2023-06-06 14:50 | disposition home or self-care (01) ==
LOC: CHSIMG 14:51
PROVIDERS: PCP Internal Medicine; Visit Provider Internal Medicine
DX: S09.90XA Unspecified injury of head, initial encounter (principal); I67.2 Cerebral atherosclerosis
CPT/HCPCS: 70450

== ENCOUNTER 2023-06-08 07:43 | Outpatient (CLI) | payer MEDICARE, SELFPAY ==
[2023-06-08 08:54] LABS: Anion Gap 10 mmol/L (8-16); Blood Urea Nitrogen 21 mg/dL (7-18); Calcium 8.2 mg/dL (8.5-10.1); Carbon Dioxide 28 mmol/L (21-32); Chloride 106 mmol/L (98-108); Estimated Glomerular Filt Rate > 60; Glucose 95 mg/dL (70-99); Osmolality Calculated 301 mOsm/kg (285-295); Potassium 4.3 mmol/L (3.5-5.1); Sodium 144 mmol/L (136-145)
== END 2023-06-08 07:44 | disposition home or self-care (01) ==
LOC: CHSLAB 07:44
PROVIDERS: PCP Internal Medicine; Visit Provider Internal Medicine
DX: I10 Essential (primary) hypertension (principal)
CPT/HCPCS: 36415; 80048

== ENCOUNTER 2023-09-21 18:11 | Emergency (ER) | payer MEDICARE, SELFPAY ==
[2023-09-21] VITALS (11 sets, daily range): BP systolic 111–131; BP diastolic 64–84; PULSE 67–82; RESP 15–20; TEMP 36.5; O2SAT 95–97
--- NOTE | ~2023-09-21 | XR_ITS ---
EXAMINATION: XR chest 1V portable DATE: 09/21/2023 18:40 INDICATION: Shortness of breath. TECHNIQUE: A single frontal view of the chest was obtained. COMPARISON: Chest single view 03/12/2023, chest CT 03/13/2023 FINDINGS: There is a small loculated left pleural effusion. There are airspace opacities in left mid and lower lung zones. No pneumothorax. The heart size is normal. There are changes of aortic valve re placement. IMPRESSION: 1. Small loculated left pleural effusion. 2. Airspace opacities in left mid and lower lung zones, consistent with atelectasis versus pneumonia. Reviewed, dictated and finalized at location [facility]. IMPRESSION: 1. Small loculated left pleural effusion. 2. Airspace opacities in left mid and lower lung zones, consistent with atelect asis versus pneumonia.
--- NOTE | 2023-09-21 18:23 | ED.SOB ---
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 -- Shortness of breath. He had nonproductive cough. The patient is noted to have an oxygen saturation of 96% with a respiratory rate of 20. denied aspiration. No fever or chills. No chest pain MD elicited complaint: shortness of breath and cough Pertinent past history: congestive heart failure Onset (ago): hour(s) ( 1 hour) Timing: intermittent Severity: moderate Relieving factors: nothing Known history of: congestive heart failure Associated symptoms: cough Treatment prior to arrival: none Related Data Home oxygen amount: none Home Medications Medication Instructions Recorded Confirmed atorvastatin 20 mg tablet 40 mg HS 07/15/21 09/21/23 bimatoprost 0.01 % eye drops 1 drp HS 07/15/21 09/21/23 (Krish) carbidopa 25 mg-levodopa 250 mg 2.5 tablet PO TID 07/15/21 09/21/23 tablet furosemide 20 mg tablet 40 mg DAILY 07/15/21 09/21/23 levothyroxine 75 mcg tablet 75 mcg DAILY 07/15/21 09/21/23 aspirin 81 mg tablet,delayed 81 mg PO DAILY 06/16/22 09/21/23 release brimonidine 0.2 %-timolol 0.5 % 1 drp BID 06/16/22 09/21/23 eye drops midodrine 5 mg tablet 5 mg PO TID 06/16/22 09/21/23 potassium chloride 20 mEq 40 meq PO DAILY 06/16/22 09/21/23 tablet,extended release pramipexole 1 mg tablet See Rx Instructions .Route .COMPLEX 03/13/23 09/21/23 rivaroxaban 20 mg tablet (Xarelto) 20 mg PO DAILY 03/13/23 09/21/23 solifenacin 10 mg tablet 10 mg PO DAILY 03/13/23 09/21/23 terazosin 10 mg capsule 10 mg PO HS 03/13/23 09/21/23 Allergies Allergy/AdvReac Type Severity Reaction Status Date / Time No Known Allergies Allergy Verified 05/03/22 14:37 Review of Systems Review of Systems: All systems reviewed & are unremarkable except as noted in HPI and below Constitutional: Constitutional: Reports as per HPI and Reports no additional constitutional complaints Eyes: Eyes: Reports photophobia Comments: Patient has decreased vision both eyes. History of glaucoma. ENT: Reports system reviewed and no additional complaints, except as documented and Reports as per HPI Cardiovascular: Cardiovascular: Reports as per HPI and Reports no additional cardiovascular complaints Respiratory: Respiratory: Reports as per HPI, Reports no additional respiratory complaints, Reports cough and Reports dyspnea Gastrointestinal: Gastrointestinal: Reports as per HPI and Reports no additional gastrointestinal complaints Genitourinary: Genitourinary: Reports no additional male genitourinary complaints and Reports as per HPI Musculoskeletal: Musculoskeletal: Reports no additional musculoskeletal complaints and Reports as per HPI Integumentary/Breasts: Skin/Breast: Reports system reviewed and no additional complaints, except as docu and Reports as per HPI Neurologic: Reports system reviewed and no additional complaints, except as documented and Reports as per HPI Psychiatric: Psychiatric: Reports no additional psychiatric complaints and Reports as per HPI Endocrine: Endocrine: Reports no additional endocrine complaints and Reports as per HPI Hematologic/Lymphatic: Hematologic/Lymphatic: Reports no additional hematologic/lymphatic complaints and Reports as per HPI Allergic/Immunologic: Allergic/Immunologic: Reports no additional allergic/immunologic complaints and Reports as per HPI PMFSH Past Medical H
--- NOTE | 2023-09-21 18:33 | ECG_ITS ---
SEE SCANNED COPY FOR CONFIRMED REPORT MTDD
[2023-09-21 18:50] LABS: Basophils Absolute Auto 0.09 K/mm3 (0.00-0.10); Basophils Percent Auto 1.2 % (0.0-1.0); Eosinophils Absolute Auto 0.33 K/mm3 (0.02-0.50); Eosinophils Percent Auto 4.2 % (1.0-6.0); Hematocrit 34.4 % (37.0-46.0); Immature Granulocyte Absolute 0.02 K/mm3 (0.00-0.00); Immature Granulocyte Percent A 0.3 % (0.0-0.0); Lymphocytes Absolute Auto 1.57 K/mm3 (1.10-4.50); Lymphocytes Percent Auto 20.1 % (18.0-42.0); Mean Corpuscular Hemoglobin 30.2 pg (27.0-31.0); Mean Corpuscular Volume 94.5 fL (78.0-102.0); Mean Platelet Volume 8.4 fl (8.7-11.0); Monocytes Absolute Auto 0.56 K/mm3 (0.10-0.90); Monocytes Percent Auto 7.2 % (2.0-11.0); Neutrophils Absolute Auto 5.25 K/mm3 (1.70-7.20); Platelet Count Result 151 K/mm3 (150-420); Red Blood Count 3.64 M/mm3 (4.70-6.10); Red Cell Distribution Width 12.6 % (11.6-14.4); White Blood Count 7.8 K/mm3 (4.8-10.8)
[2023-09-21 19:11] LABS: Lactic Acid Reflex 1.1 mmol/L (0.4-2.0)
[2023-09-21 19:13] LABS: Alanine Aminotransferase 6 U/L (16-63); Albumin Level 2.7 g/dL (3.4-5.0); Alkaline Phosphatase 112 U/L (46-116); Anion Gap 6 mmol/L (4-12); Aspartate Amino Transferase 16 U/L (15-37); Bilirubin,Total 0.3 mg/dL (0.00-1.00); Blood Urea Nitrogen 25 mg/dL (7-18); Calcium 8.1 mg/dL (8.5-10.1); Carbon Dioxide 30 mmol/L (21-32); Chloride 105 mmol/L (98-108); Estimated CRCL calculation 48 ml/min; Estimated Glomerular Filt Rate > 60; Glucose 142 mg/dL (70-99); NT Pro B Type Natriuretic Pept 330 pg/mL (0-450); Osmolality Calculated 298 mOsm/kg (285-295); Potassium 3.6 mmol/L (3.5-5.1); Sodium 141 mmol/L (136-145); Troponin I 6.9 ng/L (0.00-60.4)
== END 2023-09-21 20:22 | disposition home or self-care (01) ==
PROVIDERS: Emergency Provider Internal Medicine Critical Care Medicine; PCP Internal Medicine
DX: J90 Pleural effusion, not elsewhere classified (principal); R06.02 Shortness of breath; I11.0 Hypertensive heart disease with heart failure; I50.9 Heart failure, unspecified; E03.9 Hypothyroidism, unspecified; E78.5 Hyperlipidemia, unspecified; N40.0 Benign prostatic hyperplasia without lower urinary tract symptoms; G20.A1 Parkinson's disease without dyskinesia, without mention of fluctuations; H40.9 Unspecified glaucoma; G47.33 Obstructive sleep apnea (adult) (pediatric); I25.2 Old myocardial infarction; I48.91 Unspecified atrial fibrillation; Z95.1 Presence of aortocoronary bypass graft; Z79.82 Long term (current) use of aspirin; Z79.01 Long term (current) use of anticoagulants
CPT/HCPCS: 36415; 71045; 80053; 83605; 83880; 84484; 85025; 93005; 99284

== ENCOUNTER 2023-09-28 10:09 | Outpatient (CLI) | payer MEDICARE, SELFPAY ==
--- NOTE | ~2023-09-28 | CT_ITS ---
EXAMINATION:CT diagnostic chest w con DATE: 09/28/2023 11:19 INDICATION: Left pleural effusion. Dyspnea. TECHNIQUE: Computed tomography (CT) of the chest was performed with 75 mL Omnipaque 350 intravenous c ontrast. Automated exposure control and iterative reconstruction technique were employed. The dose-le ngth product (DLP) was 462.61 mGy-cm. COMPARISON: Chest CT 03/13/2023 FINDINGS: There is a moderate-sized loculated left pleural effusion with pleural thickening and enhan cement. There is peripheral atelectasis in left lung. There is mild atelectasis in right lung. The he art size is normal. There are changes of aortic valve replacement. There are coronary artery calcific ations. There are changes of coronary artery bypass grafting. There is a 2.6 cm mass containing fat i n left adrenal gland, consistent with a myelolipoma. There is severe cervical spondylosis and mild th oracic spondylosis. There are bridging endplate osteophytes at multiple levels in the spine, consiste nt with diffuse idiopathic skeletal hyperostosis (DISH). IMPRESSION: 1. Moderate-sized loculated left pleural effusion. Reviewed, dictated and finalized at location [facility].
[2023-09-28 10:29] LABS: Basophils Absolute Auto 0.08 K/mm3 (0.00-0.10); Basophils Percent Auto 0.7 % (0.0-1.0); Eosinophils Absolute Auto 0.21 K/mm3 (0.02-0.50); Eosinophils Percent Auto 1.8 % (1.0-6.0); Hemoglobin 11.7 g/dL (12.4-15.3); Immature Granulocyte Absolute 0.05 K/mm3 (0.00-0.00); Immature Granulocyte Percent A 0.4 % (0.0-0.0); Lymphocytes Absolute Auto 1.48 K/mm3 (1.10-4.50); Lymphocytes Percent Auto 12.8 % (18.0-42.0); Mean Corpuscular HGB Conc 31.6 g/dL (32-36); Mean Corpuscular Hemoglobin 29.8 pg (27.0-31.0); Mean Corpuscular Volume 94.4 fL (78.0-102.0); Mean Platelet Volume 8.5 fl (8.7-11.0); Monocytes Absolute Auto 0.75 K/mm3 (0.10-0.90); Monocytes Percent Auto 6.5 % (2.0-11.0); Neutrophils Absolute Auto 9.01 K/mm3 (1.70-7.20); Neutrophils Percent Auto 77.8 % (50.0-70.0); Platelet Count Result 176 K/mm3 (150-420); Red Blood Count 3.92 M/mm3 (4.70-6.10); Red Cell Distribution Width 12.5 % (11.6-14.4); White Blood Count 11.6 K/mm3 (4.8-10.8)
[2023-09-28 11:01] LABS: Albumin Level 3.3 g/dL (3.4-5.0); Alkaline Phosphatase 139 U/L (46-116); Anion Gap 5 mmol/L (4-12); Aspartate Amino Transferase 16 U/L (15-37); Bilirubin,Total 0.5 mg/dL (0.00-1.00); Blood Urea Nitrogen 20 mg/dL (7-18); Calcium 8.4 mg/dL (8.5-10.1); Carbon Dioxide 32 mmol/L (21-32); Chloride 103 mmol/L (98-108); Creatine Kinase 74 U/L (39-308); Estimated Glomerular Filt Rate 58; Glucose 110 mg/dL (70-99); NT Pro B Type Natriuretic Pept 378 pg/mL (0-450); Osmolality Calculated 293 mOsm/kg (285-295); Sodium 140 mmol/L (136-145); Total Protein 7.2 g/dL (6.4-8.2); Troponin I 5.5 ng/L (0.00-60.4)
[2023-09-28 11:15] LABS: Alanine Aminotransferase 12 U/L (16-63)
== END 2023-09-28 10:10 | disposition home or self-care (01) ==
PROVIDERS: PCP Internal Medicine; Visit Provider Internal Medicine
DX: R06.00 Dyspnea, unspecified (principal); J90 Pleural effusion, not elsewhere classified
CPT/HCPCS: 36415; 71260; 80053; 82550; 82553; 83880; 84484; 85025; Q9967

== ENCOUNTER 2023-10-08 12:25 | Outpatient (CLI) | payer MEDICARE, SELFPAY ==
[2023-10-08 12:42] LABS: Basophils Absolute Auto 0.06 K/mm3 (0.00-0.10); Basophils Percent Auto 0.9 % (0.0-1.0); Eosinophils Absolute Auto 0.29 K/mm3 (0.02-0.50); Eosinophils Percent Auto 4.3 % (1.0-6.0); Hematocrit 34.9 % (37.0-46.0); Hemoglobin 11.3 g/dL (12.4-15.3); Immature Granulocyte Absolute 0.04 K/mm3 (0.00-0.00); Immature Granulocyte Percent A 0.6 % (0.0-0.0); Lymphocytes Absolute Auto 1.81 K/mm3 (1.10-4.50); Lymphocytes Percent Auto 26.7 % (18.0-42.0); Mean Corpuscular HGB Conc 32.4 g/dL (32-36); Mean Corpuscular Hemoglobin 30.2 pg (27.0-31.0); Mean Corpuscular Volume 93.3 fL (78.0-102.0); Mean Platelet Volume 8.2 fl (8.7-11.0); Monocytes Absolute Auto 0.59 K/mm3 (0.10-0.90); Monocytes Percent Auto 8.7 % (2.0-11.0); Neutrophils Percent Auto 58.8 % (50.0-70.0); Platelet Count Result 197 K/mm3 (150-420); Red Blood Count 3.74 M/mm3 (4.70-6.10); Red Cell Distribution Width 12.5 % (11.6-14.4); White Blood Count 6.8 K/mm3 (4.8-10.8)
[2023-10-08 13:14] LABS: Appearance Urine Clear (Clear); Bilirubin Urine Negative (Negative); Blood Urine Negative (Negative); Color Urine Yellow (Yellow); Glucose Urine UA Negative (Negative); Ketones Urine Trace (Negative); Leukocyte Esterase Ur Negative (Negative); Nitrate Urine Negative (Negative); Protein Urine Negative (Negative); pH Urine 6.5 (5.0-8.0)
[2023-10-08 13:29] LABS: Add Urine Microscopic? YES; RBC Urine None seen /hpf (0-2); Squamous Epithelial Cell Urine Rare /hpf (Few); WBC Urine None seen /hpf (0-3)
[2023-10-08 13:30] LABS: Amorphous Sediment Urine Few; Bacteria Urine None seen /hpf
== END 2023-10-08 12:26 | disposition home or self-care (01) ==
LOC: CHSLAB 12:27
PROVIDERS: PCP Internal Medicine; Visit Provider Internal Medicine
DX: N39.0 Urinary tract infection, site not specified (principal)
CPT/HCPCS: 36415; 81001; 85025; 87077; 87086; 87088; 87186

== ENCOUNTER 2023-10-17 10:28 | Outpatient (CLI) | payer MEDICARE, SELFPAY ==
--- NOTE | 2023-10-15 09:58 | PC.NURSE ---
Pre Radiology instructions Report to the outpatient [facility] on date _10/17/23____ at time ___11 AM____ for procedure Time: __1300__ YOU MAY BE MONITORED AT HOSPITAL FOR UP TO 4 HOURS AFTER YOUR PROCEDURE. A visitor will be allowed to accompany the patient into the hospital. You and your visitor will be asked to self-screen and do not enter if you have any COVID symptoms. A mask is OPTIONAL within the hospital. Patients are to have no food or drink 6 hours prior to procedure time(7:00AM) Driving will be restricted after the procedure, you must have a person to drive you home. Labs will be drawn in preop area and once reviewed, you will be taken to radiology area for procedure. When the procedure is completed, you will be taken to outpatient where you will be monitored for several hours. You may have one visitor in this area. Other than holding anti-coagulants, patient may take other medication(s) as scheduled. Prior to your appointment date patients are instructed to hold anti-coagulants after discussing with ordering provider to stop. If unable to discontinue anti-coagulants please notify radiologist. ? No aspirin or warfarin (Coumadin) for 7 days prior to the procedure. ? No clopidogrel (Plavix), ticagrelor (Brilinta), prasugrel (Effient) or dabigatran (Pradaxa) for 5 days prior to the procedure. ? No rivaroxaban (Xarelto), apixaban (Eliquis), dipyridamole (Aggrenox or Persantine) or cilostazol (Pletal) for 2 days prior to the procedure. Medications to discontinue per physician: __WIFE STATES LAST DOSE ASPIRIN WAS 10/11/23. STATES PER COREMAKER SUPERVISOR HOLD XARELTO 2 DAYS PRIOR TO PROCEDURE LAST DOSE 10/14/23 Please leave all valuables, including medications, at home the day of procedure. The hospital will not accept responsibility for valuables. Wear comfortable, loose fitting clothing.? Follow any additional instructions given to you from ordering provider. Telephone instructions given to __WIFE ARTUR and asked if any additional questions and then verbalized understanding. Patient advised to call scheduling provider office or registration scheduling [phone] if any additional questions.
[2023-10-15 10:09] VITALS: BMI 31.4
[2023-10-17] VITALS (9 sets, daily range): BP systolic 116–155; BP diastolic 60–85; PULSE 64–76; RESP 16; TEMP 37; O2SAT 94–98
--- NOTE | ~2023-10-17 | XR_ITS ---
[id number] 10/17/2023 13:27 Indication: Post left thoracentesis. Procedure: AP portable chest Comparison: 09/21/2023 Findings: There is bilateral airspace disease, consistent with pneumonia. Small left pleural effusion . No pneumothorax. Multiple healed left rib fractures. Status post median sternotomy for CABG. Impression: 1: No pneumothorax identified post thoracentesis. 2: Bilateral airspace disease, consistent with pneumonia. 3: Small left pleural effusion. Reviewed, dictated and finalized at location B. Impression: 1: No pneumothorax identified post thoracentesis. 2: Bilateral airspace disease, consistent with pneumonia. 3: Small left pleural effusion.
--- NOTE | ~2023-10-17 | US_ITS ---
EXAMINATION: US thoracentesis DATE: 10/17/2023 13:39 INDICATION: Left pleural effusion TECHNIQUE: The procedure and its risks and benefits were discussed with the patient. Potential risks discussed included bleeding, infection, and pneumothorax. The patient understood the risks and agreed to proceed. The skin was prepped and draped in sterile fashion. 1% lidocaine was used for local anes thesia. Under ultrasound guidance, a 5 Fr catheter with trochar was advanced into the left pleural ef fusion. Fluid was aspirated. The catheter was removed, and a dressing was applied. There were no imme diate complications. FINDINGS: Ultrasound images demonstrate a small left pleural effusion and the catheter within the fluid. IMPRESSION: 1. Successful ultrasound-guided thoracentesis yielding 700 mL of bloody maroon-colored fluid. Reviewed, dictated and finalized at location A. IMPRESSION: 1. Successful ultrasound-guided thoracentesis yielding 700 mL of bloody maroon -colored fluid.
[2023-10-17 11:18] LABS: Mean Platelet Volume 8.7 fl (7.4-10.4); Platelet Count Result 194 k/mm3 (150-375)
[2023-10-17 11:31] LABS: INR 1.1; Prothrombin Time 14.5 Seconds (11.1-14.7)
[2023-10-17 16:18] LABS: Appearance Pleural Fluid Bloody (Clear); Color Pleural Fluid Red (Colorless); Nucleated Cell Pleural Fluid 3170 /uL (0-1000); Pleural fluid source Pleural fluid; RBC Pleural Fluid 530000 /uL (0-10000)
[2023-10-17 16:19] LABS: Lymphocytes Pleural Fluid 28 %; Macrophages Pleural Fluid 9 %; Monocytes Pleural Fluid 60 %; Neutrophils Pleural Fluid 3 % (0-25)
[2023-10-19 18:22] LABS: Adenosine Deaminase Pleural Fl 19.9 U/L (<9.2)
[2023-10-24 17:08] LABS: Glucose Pleural Fluid 56 mg/dL; Total Protein Pleural Fluid 5.3 g/dL
== END 2023-10-17 15:30 | disposition home or self-care (01) ==
PROVIDERS: PCP Internal Medicine; Referring Provider Internal Medicine Pulmonary Disease; Visit Provider Radiology Diagnostic Radiology
DX: J90 Pleural effusion, not elsewhere classified (principal)
CPT/HCPCS: 32555; 36415; 82042; 82150; 82945; 83615; 84157; 84311; 85049; 85610; 89051

== ENCOUNTER 2023-11-16 06:54 | Outpatient (CLI) | payer MEDICARE, SELFPAY ==
[2023-11-16 08:15] LABS: Albumin Level 2.9 g/dL (3.4-5.0); Lactate Dehydrogenase 229 U/L (85-227); Total Protein 6.1 g/dL (6.4-8.2)
== END 2023-11-16 06:55 | disposition home or self-care (01) ==
LOC: CHSLAB 06:55
PROVIDERS: PCP Internal Medicine; Visit Provider Internal Medicine Pulmonary Disease
DX: J90 Pleural effusion, not elsewhere classified (principal)
CPT/HCPCS: 36415; 82040; 83615; 84155

== ENCOUNTER 2023-11-28 10:17 | Outpatient (CLI) | payer MEDICARE, SELFPAY ==
[2023-11-28 10:40] LABS: Appearance Urine Clear (Clear); Basophils Absolute Auto 0.07 K/mm3 (0.00-0.10); Bilirubin Urine Negative (Negative); Blood Urine Trace-intact (Negative); Color Urine Yellow (Yellow); Eosinophils Absolute Auto 0.29 K/mm3 (0.02-0.50); Glucose Urine UA Negative (Negative); Hematocrit 30.7 % (37.0-46.0); Hemoglobin 9.5 g/dL (12.4-15.3); Immature Granulocyte Absolute 0.03 K/mm3 (0.00-0.00); Immature Granulocyte Percent A 0.4 % (0.0-0.0); Ketones Urine Trace (Negative); Leukocyte Esterase Ur Negative (Negative); Lymphocytes Absolute Auto 1.56 K/mm3 (1.10-4.50); Lymphocytes Percent Auto 21.4 % (18.0-42.0); Mean Corpuscular HGB Conc 30.9 g/dL (32-36); Mean Corpuscular Hemoglobin 28.4 pg (27.0-31.0); Mean Corpuscular Volume 91.9 fL (78.0-102.0); Mean Platelet Volume 8.4 fl (8.7-11.0); Monocytes Absolute Auto 0.62 K/mm3 (0.10-0.90); Monocytes Percent Auto 8.5 % (2.0-11.0); Neutrophils Absolute Auto 4.73 K/mm3 (1.70-7.20); Neutrophils Percent Auto 64.7 % (50.0-70.0); Nitrate Urine Negative (Negative); Platelet Count Result 238 K/mm3 (150-420); Protein Urine Negative (Negative); Red Blood Count 3.34 M/mm3 (4.70-6.10); White Blood Count 7.3 K/mm3 (4.8-10.8)
[2023-11-28 10:46] LABS: Add Urine Microscopic? YES; Bacteria Urine Rare /hpf; RBC Urine 0-2 /hpf (0-2); WBC Urine None seen /hpf (0-3)
[2023-11-28 10:47] LABS: Hemoglobin A1C 5.1 % (<5.7)
[2023-11-28 10:50] LABS: Creatinine Urine 141.91 mg/dL (40-278); MALB Creatinine Ratio 9.1 mg/g (0-30); Microalbumin Urine Random < 13.0 mg/L
[2023-11-28 11:39] LABS: Alanine Aminotransferase 11 U/L (16-63); Albumin Level 3.1 g/dL (3.4-5.0); Alkaline Phosphatase 161 U/L (46-116); Anion Gap 8 mmol/L (4-12); Aspartate Amino Transferase 17 U/L (15-37); Bilirubin,Total 0.3 mg/dL (0.00-1.00); Blood Urea Nitrogen 19 mg/dL (7-18); Calcium 8.5 mg/dL (8.5-10.1); Carbon Dioxide 28 mmol/L (21-32); Chloride 104 mmol/L (98-108); Cholesterol 112 mg/dL (0-200); Creatine Kinase 62 U/L (39-308); Estimated Glomerular Filt Rate > 60; Free T3 1.89 pg/mL (2.18-3.98); Free T4 Free Thyroxine 0.86 ng/dL (0.76-1.46); Glucose 82 mg/dL (70-99); HDL Direct 37 mg/dL (40-60); LDL Cholesterol Calculated 64 mg/dL (<130); NT Pro B Type Natriuretic Pept 324 pg/mL (0-450); Osmolality Calculated 291 mOsm/kg (285-295); Potassium 4.3 mmol/L (3.5-5.1); Sodium 140 mmol/L (136-145); Total Protein 6.3 g/dL (6.4-8.2); Triglycerides 56 mg/dL (0-150); Vitamin B12 302 pg/mL (193-986)
[2023-11-29 09:25] LABS: Immature Reticulocyte Fraction 25.8 % (2.0-16.52); Reticulocyte Hemoglobin Conten 28.5 pg (28.0-35.0); Reticulocyte Percent 2.43 % (0.50-1.50); Reticulocytes Absolute 0.08 M/mm3 (0.02-0.10)
[2023-11-29 09:47] LABS: Ferritin 114 ng/mL (26-388); Iron 28 ug/dL (65-175)
== END 2023-11-28 10:18 | disposition home or self-care (01) ==
LOC: CHSLAB 10:20
PROVIDERS: PCP Internal Medicine; Visit Provider Internal Medicine
DX: E03.4 Atrophy of thyroid (acquired) (principal); R73.01 Impaired fasting glucose; E78.2 Mixed hyperlipidemia; I10 Essential (primary) hypertension; I25.10 Atherosclerotic heart disease of native coronary artery without angina pectoris; D64.9 Anemia, unspecified; I50.9 Heart failure, unspecified
CPT/HCPCS: 36415; 80053; 80061; 81001; 82043; 82550; 82607; 82728; 83036; 83540; 83880; 84439; 84443; 84481; 85025; 85046

== ENCOUNTER 2023-12-03 13:54 | Outpatient (CLI) | payer MEDICARE, SELFPAY ==
--- NOTE | ~2023-12-03 | XR_ITS ---
Clinical Indication: Pleural effusion PA and lateral views of the chest: Comparison: 10/17/2023 Findings: Small left pleural effusion is present, similar to prior exam. Right lung clear. Cardiomed iastinal silhouette is stable, status post aortic valve replacement. Bones and soft tissues are unrem arkable. Impression: Small left pleural effusion, similar to prior exam. Status post aortic valve replacement. Reviewed, dictated and finalized at location . Impression: Small left pleural effusion, similar to prior exam. Status post aortic valve replacement.
== END 2023-12-03 13:55 | disposition home or self-care (01) ==
PROVIDERS: PCP Internal Medicine; Visit Provider Nurse Practitioner Family
DX: J90 Pleural effusion, not elsewhere classified (principal); Z95.2 Presence of prosthetic heart valve
CPT/HCPCS: 71046

== ENCOUNTER 2023-12-31 06:52 | Outpatient (CLI) | payer MEDICARE, SELFPAY ==
[2023-12-31 07:07] LABS: Basophils Absolute Auto 0.07 K/mm3 (0.00-0.10); Basophils Percent Auto 1.1 % (0.0-1.0); Eosinophils Absolute Auto 0.18 K/mm3 (0.02-0.50); Eosinophils Percent Auto 2.9 % (1.0-6.0); Hematocrit 32.8 % (37.0-46.0); Hemoglobin 10.3 g/dL (12.4-15.3); Immature Granulocyte Absolute 0.05 K/mm3 (0.00-0.00); Immature Granulocyte Percent A 0.8 % (0.0-0.0); Lymphocytes Absolute Auto 1.38 K/mm3 (1.10-4.50); Lymphocytes Percent Auto 22.3 % (18.0-42.0); Mean Corpuscular HGB Conc 31.4 g/dL (32-36); Mean Corpuscular Hemoglobin 28.4 pg (27.0-31.0); Mean Corpuscular Volume 90.4 fL (78.0-102.0); Mean Platelet Volume 8.2 fl (8.7-11.0); Monocytes Absolute Auto 0.55 K/mm3 (0.10-0.90); Monocytes Percent Auto 8.9 % (2.0-11.0); Neutrophils Absolute Auto 3.97 K/mm3 (1.70-7.20); Platelet Count Result 213 K/mm3 (150-420); Red Blood Count 3.63 M/mm3 (4.70-6.10); Red Cell Distribution Width 14.4 % (11.6-14.4); White Blood Count 6.2 K/mm3 (4.8-10.8)
[2023-12-31 08:05] LABS: Ferritin 93 ng/mL (26-388); Iron 39 ug/dL (65-175)
== END 2023-12-31 06:53 | disposition home or self-care (01) ==
LOC: CHSLAB 06:54
PROVIDERS: PCP Internal Medicine; Visit Provider Internal Medicine
DX: D50.9 Iron deficiency anemia, unspecified (principal)
CPT/HCPCS: 36415; 82728; 83540; 85025

== ENCOUNTER 2024-01-25 06:53 | Outpatient (CLI) | payer MEDICARE, SELFPAY ==
[2024-01-25 08:10] LABS: Free T3 1.88 pg/mL (2.18-3.98); Free T4 Free Thyroxine 0.98 ng/dL (0.76-1.46); Thyroid Stimulating Hormone 2.74 uIU/mL (0.36-3.74)
== END 2024-01-25 06:54 | disposition home or self-care (01) ==
LOC: CHSLAB 06:54
PROVIDERS: PCP Internal Medicine; Visit Provider Internal Medicine
DX: E03.9 Hypothyroidism, unspecified (principal)
CPT/HCPCS: 36415; 84439; 84443; 84481

== ENCOUNTER 2024-03-03 07:01 | Outpatient (CLI) | payer MEDICARE, SELFPAY ==
[2024-03-03 07:17] LABS: Basophils Absolute Auto 0.06 K/mm3 (0.00-0.10); Basophils Percent Auto 0.8 % (0.0-1.0); Eosinophils Percent Auto 2.7 % (1.0-6.0); Hematocrit 35.7 % (37.0-46.0); Hemoglobin 11.5 g/dL (12.4-15.3); Immature Granulocyte Absolute 0.03 K/mm3 (0.00-0.00); Immature Granulocyte Percent A 0.4 % (0.0-0.0); Lymphocytes Absolute Auto 1.51 K/mm3 (1.10-4.50); Lymphocytes Percent Auto 20.6 % (18.0-42.0); Mean Corpuscular HGB Conc 32.2 g/dL (32-36); Mean Corpuscular Hemoglobin 28.9 pg (27.0-31.0); Mean Corpuscular Volume 89.7 fL (78.0-102.0); Mean Platelet Volume 8.5 fl (8.7-11.0); Monocytes Absolute Auto 0.64 K/mm3 (0.10-0.90); Monocytes Percent Auto 8.7 % (2.0-11.0); Neutrophils Percent Auto 66.8 % (50.0-70.0); Platelet Count Result 174 K/mm3 (150-420); Red Blood Count 3.98 M/mm3 (4.70-6.10); Red Cell Distribution Width 14.9 % (11.6-14.4); White Blood Count 7.3 K/mm3 (4.8-10.8)
[2024-03-03 08:02] LABS: Ferritin 76 ng/mL (26-388); Iron 47 ug/dL (65-175)
== END 2024-03-03 07:02 | disposition home or self-care (01) ==
LOC: CHSLAB 07:05
PROVIDERS: PCP Internal Medicine; Visit Provider Internal Medicine
DX: D50.9 Iron deficiency anemia, unspecified (principal)
CPT/HCPCS: 36415; 82728; 83540; 85025

== ENCOUNTER 2024-03-20 09:19 | Outpatient (CLI) | payer MEDICARE, SELFPAY ==
[2024-03-20 10:42] LABS: Thyroid Stimulating Hormone 6.28 uIU/mL (0.36-3.74); Vitamin B12 246 pg/mL (193-986)
[2024-03-25 16:43] LABS: Vitamin B1 12 nmol/L (8-30)
== END 2024-03-20 09:20 | disposition home or self-care (01) ==
LOC: CHSLAB 09:22
PROVIDERS: PCP Internal Medicine
DX: G31.84 Mild cognitive impairment of uncertain or unknown etiology (principal); J98.4 Other disorders of lung
CPT/HCPCS: 36415; 82607; 83018; 84425; 84443

== ENCOUNTER 2024-03-22 06:15 | Emergency (ER) | payer MEDICARE, SELFPAY ==
[2024-03-22] VITALS (23 sets, daily range): BP systolic 112–141; BP diastolic 60–87; PULSE 53–96; RESP 12–29; TEMP 36.7–37.2; O2SAT 93–99
--- NOTE | ~2024-03-22 | XR_ITS ---
EXAMINATION: XR chest 1V portable DATE: 03/22/2024 06:42 INDICATION: Sternal chest pain. TECHNIQUE: A single frontal view of the chest was obtained. COMPARISON: Chest 2 views 12/03/2023, chest CT 09/28/2023 FINDINGS: There is a small loculated left pleural effusion. There are mild airspace opacities in left mid and lower lung zones. No pneumothorax. The heart size is normal. There are changes of aortic madhu ve replacement. IMPRESSION: 1. Stable small loculated left pleural effusion. 2. Stable mild airspace opacities in left mid and lower lung zones, consistent with atelectasis or le ss likely pneumonia. Reviewed, dictated and finalized at location A. ON CLASSER AIDE IMPRESSION: 1. Stable small loculated left pleural effusion. 2. Stable mild airspace opacities in left mid and lower lung zones, consistent with atelectasis or less likely pneumonia.
--- NOTE | ~2024-03-22 | CT_ITS ---
EXAMINATION: CT chest abdomen pelvis w con DATE: 03/22/2024 07:45 INDICATION: Retrosternal and epigastric pain. TECHNIQUE: Computed tomography (CT) of the chest, abdomen, and pelvis was performed with 100 mL Omnip aque 350 intravenous contrast. Automated exposure control and iterative reconstruction technique were employed. The dose-length product was 1341.02 mGy-cm. COMPARISON: Chest CT 09/28/2023, chest 2 views 12/03/2023 FINDINGS: CHEST CT: There is a chronic small loculated left pleural effusion with pleural thickening. There is peripheral rounded atelectasis in left lower lobe and lingula. A calcified right lung nodule is consistent with old granulomatous disease. The heart size is normal. There are changes of aortic valve replacement. There are coronary artery calcifications. There are changes of coronary artery bypass grafting. There are old healed left rib fractures. There is mild chronic anterior wedging of multiple thoracic verte bral bodies. There is moderate thoracic spondylosis. There are bridging endplate osteophytes at multi ple levels in the spine, consistent with diffuse idiopathic skeletal hyperostosis (DISH). ABDOMEN/PELVIS CT: The liver is normal. The gallbladder is distended. Gallbladder wall thickening is noted. The spleen, pancreas, and right adrenal gland are normal. There is a 2.2 cm mass of fat in left adrenal gland, co nsistent with a myelolipoma. There are cysts in the kidneys measuring up to 2.0 cm on the left. There is an umbilical hernia containing fat. The prostate is mildly enlarged. There is a diverticulum of t he bladder on the right. There is diverticulosis of the colon without evidence of diverticulitis. The re are no dilated loops of bowel. The appendix is not visualized. There is a left inguinal hernia con taining fat. There is calcified atherosclerosis of the aorta and many of the other arteries. There ar e no pathologically enlarged lymph nodes. There is no free intraperitoneal fluid. There is a total le ft hip arthroplasty. There is severe lumbar spondylosis. IMPRESSION: 1. Distended gallbladder with gallbladder wall thickening suspicious for acute cholecystitis. 2. Chronic small loculated left pleural effusion. 3. Umbilical hernia containing fat. 4. Left inguinal hernia containing fat. Reviewed, dictated and finalized at location A. ET OPERATOR
--- NOTE | 2024-03-22 06:26 | ECG_ITS ---
Test Date: 2024-03-22 06:39:20 Measurements Intervals [place] Rate: 53 P: 35 PA: 230 QRS: -36 QRSD: 159 T: 24 QT: 467 QTc: 441 Interpretive Statements SINUS BRADYCARDIA WITH MARKED SINUS ARRHYTHMIA WITH FIRST DEGREE AV BLOCK LEFT AXIS DEVIATION RIGHT BUNDLE BRANCH BLOCK ABNORMAL ECG No previous ECG available for comparison Electronically Signed On 03-22-2024 07:08:42 PEDIATRIC RADIOLOGIST by Rosalio Miller D.O.
--- NOTE | 2024-03-22 06:32 | ED_ITS ---
HPI - Chest Pain General Chief Complaint: Chest Pain Stated Complaint: Low BP/Chest Pain Time Seen by Provider: 03/22/24 06:32 Source: patient Mode of arrival: ambulatory Limitations: no limitations History of Present Illness HPI narrative: 83 YEARS OLD WHITE MALE CAME TO THE ED BY PRIVATE CAR WITH HIS FROM HOME COMPLAINING OF RETROSTERNAL KNIFE LIKE FEELING WE CAME TO AND HAVE HOUR PRIOR TO ARRIVAL TO THE EMERGENCY ROOM. 12/14, NO RADIATION, BETTER WITH MOVEMENT, NOTHING MAKE IT WORSE. HE DENIES ANY FEVER, CHILLS, NAUSEA, VOMITING, SHORTNESS OF BREATH, BACK PAIN OR ABDOMINAL PAIN. HISTORY OF HYPERTENSION, HYPERLIPIDEMIA, HYPOTHYROIDISM, CORONARY STENT, CABG, CARDIAC VALVE REPLACEMENT PATIENT CURRENTLY ON XARELTO. PATIENT IS DNR. Related Data Home Medications Medication Instructions Recorded Confirmed atorvastatin 20 mg tablet 40 mg PO HS 07/15/21 03/22/24 bimatoprost 0.01 % eye drops 1 drp EACH EYE HS 07/15/21 03/22/24 (Lumigan) levothyroxine 75 mcg tablet 75 mcg PO DAILY 07/15/21 03/22/24 aspirin 81 mg tablet,delayed 81 mg PO DAILY 06/16/22 03/22/24 release brimonidine 0.2 %-timolol 0.5 % 1 drp EACH EYE BID 06/16/22 03/22/24 eye drops midodrine 5 mg tablet 5 mg PO TID 06/16/22 03/22/24 rivaroxaban 20 mg tablet (Xarelto) 20 mg PO DAILY 03/13/23 03/22/24 terazosin 10 mg capsule 10 mg PO HS 03/13/23 03/22/24 multivitamin 1 tablet PO DAILY 10/09/23 03/22/24 polyethylene glycol 3350 17 gram 17 g PO DAILY 10/09/23 03/22/24 oral powder packet (Miralax) vitamins A,C,C-mreu-qmvqzo 2,148 2 tablet PO BID 10/09/23 03/22/24 mcg-113 mg-45 mg-17.4 mg tablet (PreserVision AREDS) potassium chloride 10 mEq 10 meq PO DAILY 10/15/23 03/22/24 tablet,extended release pramipexole 1 mg tablet See Rx Instructions .Route .COMPLEX 11/16/23 03/22/24 ferrous sulfate 325 mg (65 mg 325 mg PO DAILY 12/14/23 03/22/24 iron) tablet ascorbic acid (vitamin C) 1,000 mg 1 g PO DAILY 03/21/24 03/22/24 capsule carbidopa 25 mg-levodopa 100 mg 1 tablet PO TID 03/21/24 03/22/24 tablet carbidopa 25 mg-levodopa 250 mg 2 tablet PO TID 03/21/24 03/22/24 tablet cinnamon bark 500 mg capsule 500 mg PO DAILY 03/21/24 03/22/24 (Cinnamon) furosemide 40 mg tablet 40 mg PO QAM 03/21/24 03/22/24 doxycycline hyclate 100 mg tablet 100 mg PO BID 03/22/24 03/22/24 Allergies Allergy/AdvReac Type Severity Reaction Status Date / Time No Known Allergies Allergy Verified 03/21/24 14:17 Review of Systems Review of Systems: All systems reviewed & are unremarkable except as noted in HPI and below PMFSH Past Medical History Medical History Afib HLD (hyperlipidemia) Parkinson disease Surgical History Surgical History History of ankle surgery History of heart surgery History of hip surgery Hx of cataract surgery Family History Family History Other Cerebrovascular accident Family history of arthritis Hypertension Social History Social History Smoking status: Never smoker Alcohol intake: current Alcohol use details: Social - 1-2 drinks per month Substance use: never Substance use type: does not use Do You Feel Safe in your Home?: Yes Lack of Transportation: No Lack of Food: Never True Current Housing: I Have Housing Concerned About Future Housing: No Difficulty Paying Gas/Electric Bills: No Difficulty Paying for Meds: No Currently Unemployed: No Education: High School Diploma/GED Difficulty w/ Childcare or Family Care: No Spiritual care concerns: No Exam Narrative: GENERAL APPEARANCE: WELL-DEVELOPED, WELL-NOURISHED , DOES NOT LOOK IN PAIN OR DISTRESS SKIN: NORMAL COLOR HEAD: NORMOCEPHALIC, NONTRAUMATIC EYES: CLEAR CONJUNCTIVA ENT: OROPHARYNX NORMAL, EARS NORMAL, NOSE NORMAL NECK: SUPPLE, NONTENDER CHEST AND RESPIRATORY: AIRWAY PATENT, NO RESPIRATORY DISTRESS, NO ACCESSORY MUSCLE USE HEART: REGULAR RATE/RHYTHM ABDOMEN: SOFT, NONTENDER, NO ORGANOMEGALY, QUIET BOWEL SOUNDS VASCULAR: NORMAL PERIPHERAL PULSES, NORMAL CAPILLARY REFILL. MUSCULOSKELETAL: NORMAL RANGE OF MOTION, NONTENDER BACK NEUROLOGIC: ALERT AND ORIENTED ?3, SUPERVISOR STENO POOL IS NORMAL TESTED, NO GROSS MOTOR DEFICIT Course Vital Signs Vital signs: Vital Signs Pulse Rate 53 L 03/22/24 06:30 Pulse Oximetry 96 03/22/24 06:30 Temperature 37.2 C 03/22/24 10:07 Pulse Rate 95 03/22/24 10:07 Respiratory Rate 25 H 03/22/24 10:07 Blood Pressure 141/85 H 03/22/24 10:07 Pulse Oximetry 93 03/22/24 10:07 Oxygen Delivery Room Air 03/22/24 06:31 MDM - Chest Pain Lab Data 03/22/24 06:49 03/22/24 06:49 Labs: Lab Results 03/22/24 03/22/24 03/22/24 Range/Units 06:49 08:00 09:27 WBC 8.0 (4.8-10.8) K/mm3 RBC 3.51 L (4.70-6.10) M/mm3 Hgb 10.3 L (12.4-15.3) g/dL Hct 31.3 L (37.0-46.0) % MCV 89.2 (78.0-102.0) fL MCH 29.3 (27.0-31.0) pg MCHC 32.9 (32-36) g/dL RDW 14.8 H (11.6-14.4) % Plt Count 173 (150-420) K/mm3 MPV 8.6 L (8.7-11.0) fl Immature Gran % (Auto) 0.4 H (0.0-0.0) % Neut % (Auto) 75.8 H (50.0-70.0) % Lymph % (Auto) 13.1 L (18.0-42.0) % [place] % (Auto) 7.7 (2.0-11.0) % Eos % (Auto) 2.0 (1.0-6.0) % Baso % (Auto) 1.0 (0.0-1.0) % Lymph # (Auto) 1.04 L (1.10-4.50) K/mm3 [place] # (Auto) 0.61 (0.10-0.90) K/mm3 Eos # (Auto) 0.16 (0.02-0.50) K/mm3 Baso # (Auto) 0.08 (0.00-0.10) K/mm3 Abs Immat Gran (auto) 0.03 H (0.00-0.00) K/mm3 Absolute Neuts (auto) 6.04 (1.70-7.20) K/mm3 Absolute Nucleated RBC 0.00 (0.00-0.00) K/mm3 Nucleated RBC % 0.0 (0-0.0) % PT 14.8 H (9.50-12.1) Seconds INR 1.4 APTT 39.7 H (23.9-30.70) Sec Sodium 139 (136-145) mmol/L Potassium 4.2 (3.5-5.1) mmol/L Chloride 103 (98-108) mmol/L Carbon Dioxide 29 (21-32) mmol/L Anion Gap 7 (4-12) mmol/L BUN 18 (7-18) mg/dL Creatinine 0.90 (0.70-1.30) mg/dL Estim Creat Clear Calc 53 ml/min Estimated GFR > 60 (59 - ) Glucose 128 H (70-99) mg/dL Calculated Osmolality 291 (285-295) mOsm/kg Calcium 8.6 (8.5-10.1) mg/dL Total Bilirubin 0.3 (0.00-1.00) mg/dL AST 16 (15-37) U/L ALT 20 (16-63) U/L Alkaline Phosphatase 143 H (46-116) U/L Troponin I 8.1 6.6 (0.00-60.4) ng/L NT-Pro-B Natriuret Pep 453 H (0-450) pg/mL Total Protein 6.8 (6.4-8.2) g/dL Albumin 3.1 L (3.4-5.0) g/dL Lipase 23 (16-77) U/L Urine Color Yellow (Yellow) Urine Appearance Clear (Clear) Urine pH 7.0 (5.0-8.0) Ur Specific [place] <= 1.005 L (1.010-1.020) Urine Protein Negative (Negative) Urine Glucose (UA) Negative (Negative) Urine Ketones Negative (Negative) Ur Blood (Man) Negative (Negative) Urine Nitrate Negative (Negative) Urine Bilirubin Negative (Negative) Urine Urobilinogen 1.0 (0.2-1.0) mg/dL Leukocyte Esterase Rfl Negative (Negative) DONNIE/UL ECG Data EKG #1: Attestation: I personally reviewed and interpreted this ECG as follows: ECG completion date: 03/22/24 Interpretation: SINUS BRADYCARDIA AT 53 BEATS PER MINUTE WITH SINUS ARRHYTHMIA, FIRST-DEGREE HEART BLOCK, LEFT AXIS DEVIATION, RIGHT BUNDLE-BRANCH BLOCK, ABNORMAL EKG NO SIGNIFICANT CHANGES COMPARED TO EKG ON MARCH 12, 2023 Critical Care Time Critical Care Time Critical Care Time: No Discharge Plan Discharge Clinical Impression: Cholecystitis Patient Disposition: Home, Self-Care Condition: Stable Instructions: Antibiotic Form, Cholecystitis (ED) Additional Instructions: advised take medication as prescribed and follow with primary within next 3 to 4 days for further evaluation and treatment. Prescriptions: New oxycodone-acetaminophen [Percocet] 5-325 mg tablet 1 tablet PO Q6H PRN (Reason: pain) Qty: 20 0RF ondansetron 4 mg tablet,disintegrating 4 mg PO Q6H PRN (Reason: nausea and vomiting) Qty: 14 0RF No Action terazosin 10 mg capsule 10 mg PO HS Xarelto 20 mg tablet 20 mg PO DAILY pramipexole 1 mg tablet See Rx Instructions .ROUTE .COMPLEX Rx Instructions: 3 tab TID atorvastatin 20 mg tablet 40 mg PO HS levothyroxine 75 mcg tablet 75 mcg PO DAILY Lumigan 0.01 % drops 1 drp EACH EYE HS carbidopa-levodopa 25-250 mg tablet 2 tablet PO TID aspirin 81 mg Tablet,Delayed Release (Dr/Ec) 81 mg PO DAILY midodrine 5 mg Tablet 5 mg PO TID Rx Instructions: do not give last dose of day after 6PM or within 4 hrs of bedtime brimonidine-timolol 0.2-0.5 % Drops 1 drp EACH EYE BID pantoprazole [Protonix] 40 mg Tablet,Delayed Release (Dr/Ec) 40 mg PO QAM Qty: 60 0RF doxycycline hyclate 100 mg tablet 100 mg PO BID ferrous sulfate 325 mg (65 mg iron) tablet 325 mg PO DAILY multivitamin Tablet 1 tablet PO DAILY polyethylene glycol 3350 [Miralax] 17 gram powder in packet 17 g PO DAILY PreserVision AREDS 2,148 mcg-113 mg-45 mg-17.4mg tablet 2 tablet PO BID Rx Instructions: administer with AM and PM meals carbidopa-levodopa 25-100 mg tablet 1 tablet PO TID furosemide 40 mg tablet 40 mg PO QAM cinnamon bark [Cinnamon] 500 mg capsule 500 mg PO DAILY ascorbic acid (vitamin C) 1,000 mg capsule 1 g PO DAILY potassium chloride 10 mEq tablet extended release 10 meq PO DAILY Follow-up/Referrals: Leticia Handley MD [Primary Care Provider] - Time of Disposition: 10:12
[2024-03-22] MEDS: ASPIRIN 81 MG CHEWABLE TABLET 324 MG PO (06:50)
[2024-03-22 06:52] LABS: Basophils Absolute Auto 0.08 K/mm3 (0.00-0.10); Eosinophils Absolute Auto 0.16 K/mm3 (0.02-0.50); Hematocrit 31.3 % (37.0-46.0); Hemoglobin 10.3 g/dL (12.4-15.3); Immature Granulocyte Absolute 0.03 K/mm3 (0.00-0.00); Immature Granulocyte Percent A 0.4 % (0.0-0.0); Lymphocytes Absolute Auto 1.04 K/mm3 (1.10-4.50); Lymphocytes Percent Auto 13.1 % (18.0-42.0); Mean Corpuscular HGB Conc 32.9 g/dL (32-36); Mean Corpuscular Hemoglobin 29.3 pg (27.0-31.0); Mean Corpuscular Volume 89.2 fL (78.0-102.0); Mean Platelet Volume 8.6 fl (8.7-11.0); Monocytes Absolute Auto 0.61 K/mm3 (0.10-0.90); Monocytes Percent Auto 7.7 % (2.0-11.0); Neutrophils Absolute Auto 6.04 K/mm3 (1.70-7.20); Neutrophils Percent Auto 75.8 % (50.0-70.0); Platelet Count Result 173 K/mm3 (150-420); Red Blood Count 3.51 M/mm3 (4.70-6.10); Red Cell Distribution Width 14.8 % (11.6-14.4)
[2024-03-22] MEDS: ONDANSETRON INJ 4 MG/2 ML VIAL IV PUSH (06:53)
[2024-03-22 07:05] LABS: INR 1.4; Partial Thromboplastin Time 39.7 Sec (23.9-30.70); Prothrombin Time 14.8 Seconds (9.50-12.1)
--- NOTE | 2024-03-22 07:07 | PC.NURSE ---
report given to tristan RUST
[2024-03-22 07:14] LABS: Alanine Aminotransferase 20 U/L (16-63); Albumin Level 3.1 g/dL (3.4-5.0); Alkaline Phosphatase 143 U/L (46-116); Anion Gap 7 mmol/L (4-12); Aspartate Amino Transferase 16 U/L (15-37); Bilirubin,Total 0.3 mg/dL (0.00-1.00); Blood Urea Nitrogen 18 mg/dL (7-18); Calcium 8.6 mg/dL (8.5-10.1); Carbon Dioxide 29 mmol/L (21-32); Chloride 103 mmol/L (98-108); Estimated CRCL calculation 53 ml/min; Estimated Glomerular Filt Rate > 60; Glucose 128 mg/dL (70-99); Lipase 23 U/L (16-77); NT Pro B Type Natriuretic Pept 453 pg/mL (0-450); Osmolality Calculated 291 mOsm/kg (285-295); Potassium 4.2 mmol/L (3.5-5.1); Sodium 139 mmol/L (136-145); Total Protein 6.8 g/dL (6.4-8.2); Troponin I 8.1 ng/L (0.00-60.4)
[2024-03-22 08:04] LABS: Add Urine Microscopic? NO; Appearance Urine Clear (Clear); Bilirubin Urine Negative (Negative); Blood Urine Negative (Negative); Color Urine Yellow (Yellow); Glucose Urine UA Negative (Negative); Ketones Urine Negative (Negative); Leukocyte Esterase Ur Negative LEU/UL (Negative); Nitrate Urine Negative (Negative); Protein Urine Negative (Negative); Specific Grav Ur <= 1.005 (1.010-1.020)
--- NOTE | 2024-03-22 09:20 | ECG_ITS ---
Test Date: 2024-03-22 09:29:23 Measurements Intervals [place] Rate: 86 P: 24 [place]: 236 QRS: -41 QRSD: 133 T: 7 QT: 402 QTc: 481 Interpretive Statements SINUS RHYTHM WITH FIRST DEGREE AV BLOCK LEFT AXIS DEVIATION RIGHT BUNDLE BRANCH BLOCK BASELINE ARTIFACT- I, II, III, AVR, AVL, AVF, V1-V6 ABNORMAL ECG Compared to ECG 03/22/2024 06:39:20 HEART RATE HAS INCREASED Electronically Signed On 03-22-2024 16:38:00 CUSTOMS AND BORDER PROTECTION OFFICER by Rosalio Miller D.O.
[2024-03-22 09:48] LABS: Troponin I 6.6 ng/L (0.00-60.4)
== END 2024-03-22 10:15 | disposition home or self-care (01) ==
PROVIDERS: Emergency Medicine; Emergency Provider Emergency Medicine; PCP Internal Medicine
DX: K81.9 Cholecystitis, unspecified (principal); R07.9 Chest pain, unspecified; I10 Essential (primary) hypertension; E78.5 Hyperlipidemia, unspecified; E03.9 Hypothyroidism, unspecified; G20.A1 Parkinson's disease without dyskinesia, without mention of fluctuations; I48.91 Unspecified atrial fibrillation; Z79.01 Long term (current) use of anticoagulants; Z79.899 Other long term (current) drug therapy; Z79.82 Long term (current) use of aspirin
CPT/HCPCS: 36415; 71045; 71260; 74177; 80053; 81003; 83690; 83880; 84484; 85025; 85610; 85730; 93005; 96374; 99284; A9270; J2405; Q9967

== ENCOUNTER 2024-04-23 12:18 | Emergency (ER) | payer MEDICARE, SELFPAY ==
--- NOTE | ~2024-04-23 | CT_ITS ---
EXAMINATION: CT brain wo con DATE: 04/23/2024 12:49 INDICATION: Fall with posterior head injury TECHNIQUE: Computed tomography (CT) of the head was performed without intravenous contrast. Sagittal and coronal reconstructions were performed. The mA was adjusted according to patient size. Iterative reconstruction technique was employed. The dose-length product was 605.33 mGy-cm. COMPARISON: head CT dated 06/06/2023 FINDINGS: No fracture. No acute intracranial hemorrhage, acute infarction or abnormal extra axial fluid collect ion. There is mild scattered white matter hypoattenuation consistent with chronic small vessel ischem ic disease. Symmetric prominence of the sulci and ventricles consistent with mild age-appropriate dif fuse cerebral volume loss. Ventricles are normal and symmetric. No mass/mass effect. Changes of bilat eral intraocular lens replacement. The orbits, paranasal sinuses and mastoid air cells are normal. In tracranial calcified cerebral atherosclerosis is noted. IMPRESSION: 1. Normal aging brain. No fracture or acute intracranial process. Reviewed, dictated and finalized at location A. CULAR BIOLOGY PROFESSOR
--- NOTE | ~2024-04-23 | CT_ITS ---
EXAMINATION: CT cervical spine wo con DATE: 04/23/2024 12:49 INDICATION: Neck pain post fall with posterior head injury TECHNIQUE: Computed tomography (CT) of the cervical spine was performed without intravenous contrast. Automated exposure control and iterative reconstruction technique were employed. The dose-length pro duct was 276.93 mGy-cm. COMPARISON: None FINDINGS: Mild lower cervical kyphosis and 3 mm anterolisthesis C3 on C4. 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 Vertebral body heights are normal. No acute frac ture. Severe disc height loss with degenerative endplate changes and severe uncovertebral osteoarthri tis at C6-C7 and moderate right-sided and severe left-sided uncovertebral osteoarthritis at C5-C6. Mo derate disc height loss with mild left-sided and moderate right-sided uncovertebral osteoarthritis at C3-C4. Mild disc height loss with severe right-sided and mild left-sided uncovertebral osteoarthriti s at C2-C3 and C4-C5. Mild central canal stenosis associated with posterior disc osteophyte complexes at C4-C5 through C6-7 and T2 to the mild retrolisthesis at C3-C4. There is severe facet osteoarthrit is on the left at C2-C3 and C3-C4 and with secondary osseous fusion on the right at C3-C4. Mild to mo derate facet osteoarthritis throughout remainder the cervical spine. There is moderate neural foramin al stenosis bilaterally at C6-C7 and on the left at C5-C6 with mild neural foraminal stenosis at many of the remaining cervical levels. Atherosclerotic calcific lesions at the bilateral carotid arteries . Cervical soft tissues are otherwise unremarkable. Visualized apices of lungs are clear. IMPRESSION: 1. Severe cervical spondylosis with no acute osseous abnormality. Reviewed, dictated and finalized at location A. LE ROOM HELPER
[2024-04-23 12:18] VITALS: BP 154/88; PULSE 94; RESP 18; TEMP 36.7; O2SAT 98
--- NOTE | 2024-04-23 12:22 | ED_ITS ---
HPI - Dental/Oral General Stated complaint: dental bleeding Time Seen by Provider: 04/23/24 12:21 Related Data Home Medications ?Medication ?Instructions ?Recorded ?Confirmed ?Last Taken ?Type atorvastatin 20 mg tablet 40 mg PO HS 07/15/21 03/22/24 Unknown History bimatoprost 0.01 % eye drops 1 drp EACH EYE HS 07/15/21 03/22/24 Unknown History (Krish) levothyroxine 75 mcg tablet 75 mcg PO DAILY 07/15/21 03/22/24 10/17/23 04:00 History aspirin 81 mg tablet,delayed 81 mg PO DAILY 06/16/22 03/22/24 Unknown History release brimonidine 0.2 %-timolol 0.5 % 1 drp EACH EYE BID 06/16/22 03/22/24 Unknown History eye drops midodrine 5 mg tablet 5 mg PO TID 06/16/22 03/22/24 10/17/23 04:00 History rivaroxaban 20 mg tablet (Xarelto) 20 mg PO DAILY 03/13/23 03/22/24 10/15/23 History terazosin 10 mg capsule 10 mg PO HS 03/13/23 03/22/24 Unknown History multivitamin 1 tablet PO DAILY 10/09/23 03/22/24 Unknown History polyethylene glycol 3350 17 gram 17 g PO DAILY 10/09/23 03/22/24 Unknown History oral powder packet (Miralax) vitamins A,C,T-exxb-jrqjrp 2,148 2 tablet PO BID 10/09/23 03/22/24 Unknown History mcg-113 mg-45 mg-17.4 mg tablet (PreserVision AREDS) potassium chloride 10 mEq 10 meq PO DAILY 10/15/23 03/22/24 Unknown History tablet,extended release pramipexole 1 mg tablet See Rx Instructions .Route .COMPLEX 11/16/23 03/22/24 Unknown History ferrous sulfate 325 mg (65 mg 325 mg PO DAILY 12/14/23 03/22/24 Unknown History iron) tablet ascorbic acid (vitamin C) 1,000 mg 1 g PO DAILY 03/21/24 03/22/24 Unknown History capsule carbidopa 25 mg-levodopa 100 mg 1 tablet PO TID 03/21/24 03/22/24 Unknown History tablet carbidopa 25 mg-levodopa 250 mg 2 tablet PO TID 03/21/24 03/22/24 Unknown History tablet cinnamon bark 500 mg capsule 500 mg PO DAILY 03/21/24 03/22/24 Unknown History (Cinnamon) furosemide 40 mg tablet 40 mg PO QAM 03/21/24 03/22/24 Unknown History doxycycline hyclate 100 mg tablet 100 mg PO BID 03/22/24 03/22/24 Unknown History Allergies Allergy/AdvReac Type Severity Reaction Status Date / Time No Known Allergies Allergy Verified 03/21/24 14:17 [facility] Past Medical History Medical History Afib HLD (hyperlipidemia) Parkinson disease Surgical History Surgical History History of ankle surgery History of heart surgery History of hip surgery Hx of cataract surgery Family History Family History Other Cerebrovascular accident Family history of arthritis Hypertension Social History Social History Smoking status: Never smoker Alcohol intake: current Alcohol use details: Social - 1-2 drinks per month Substance use: never Substance use type: does not use Do You Feel Safe in your Home?: Yes Lack of Transportation: No Lack of Food: Never True Current Housing: I Have Housing Concerned About Future Housing: No Difficulty Paying Gas/Electric Bills: No Difficulty Paying for Meds: No Currently Unemployed: No Education: High School Diploma/GED Difficulty w/ Childcare or Family Care: No Spiritual care concerns: No Discharge Plan Discharge Patient Language: Gibralt[place] Prescriptions: No Action terazosin 10 mg capsule 10 mg PO HS Xarelto 20 mg tablet 20 mg PO DAILY pramipexole 1 mg tablet See Rx Instructions .ROUTE .COMPLEX Rx Instructions: 3 tab TID atorvastatin 20 mg tablet 40 mg PO HS levothyroxine 75 mcg tablet 75 mcg PO DAILY Lumigan 0.01 % drops 1 drp EACH EYE HS carbidopa-levodopa 25-250 mg tablet 2 tablet PO TID aspirin 81 mg Tablet,Delayed Release (Dr/Ec) 81 mg PO DAILY midodrine 5 mg Tablet 5 mg PO TID Rx Instructions: do not give last dose of day after 6PM or within 4 hrs of bedtime brimonidine-timolol 0.2-0.5 % Drops 1 drp EACH EYE BID pantoprazole [Protonix] 40 mg Tablet,Delayed Release (Dr/Ec) 40 mg PO QAM Qty: 60 0RF doxycycline hyclate 100 mg tablet 100 mg PO BID oxycodone-acetaminophen [Percocet] 5-325 mg tablet 1 tablet PO Q6H PRN (Reason: pain) Qty: 20 0RF ondansetron 4 mg tablet,disintegrating 4 mg PO Q6H PRN (Reason: nausea and vomiting) Qty: 14 0RF ferrous sulfate 325 mg (65 mg iron) tablet 325 mg PO DAILY multivitamin Tablet 1 tablet PO DAILY polyethylene glycol 3350 [Miralax] 17 gram powder in packet 17 g PO DAILY PreserVision AREDS 2,148 mcg-113 mg-45 mg-17.4mg tablet 2 tablet PO BID Rx Instructions: administer with AM and PM meals carbidopa-levodopa 25-100 mg tablet 1 tablet PO TID furosemide 40 mg tablet 40 mg PO QAM cinnamon bark [Cinnamon] 500 mg capsule 500 mg PO DAILY ascorbic acid (vitamin C) 1,000 mg capsule 1 g PO DAILY potassium chloride 10 mEq tablet extended release 10 meq PO DAILY Follow-up/Referrals: Leticia Handley MD [Primary Care Provider] -
--- NOTE | 2024-04-23 12:27 | ED.FALL ---
HPI - Fall General Chief Complaint: Dental/Oral Stated Complaint: dental bleeding Time Seen by Provider: 04/23/24 12:21 Source: patient Mode of arrival: ambulatory Limitations: no limitations History of Present Illness HPI Narrative: 83-year-old male with a history of parkinsonism, hypertension, dyslipidemia, hypothyroidism, BPH, CAD status post stents status post CABG, AFib presents to the ED after -- he had a fall this morning. He fell backwards and hit his occiput. No loss of consciousness. -- Had dental filling following which he presents with bleeding from his right lower molars where he had the dental work. The patient went to a local restaurant and ate right after the dental procedure which precipitated the bleeding. Patient is currently on Xarelto. complaint: fall Onset (ago): hour(s) ( 3 hours) Fall from: standing Fall witnessed: yes, by family Place fall occurred: home Loss of consciousness: none Prolonged down time: no Symptoms prior to fall: none Location of injury: head Associated symptoms (after fall): denies Related Data Home Medications ?Medication ?Instructions ?Recorded ?Confirmed ?Last Taken ?Type atorvastatin 20 mg tablet 40 mg PO HS 07/15/21 03/22/24 Unknown History bimatoprost 0.01 % eye drops 1 drp EACH EYE HS 07/15/21 03/22/24 Unknown History (Krish) levothyroxine 75 mcg tablet 75 mcg PO DAILY 07/15/21 03/22/24 10/17/23 04:00 History aspirin 81 mg tablet,delayed 81 mg PO DAILY 06/16/22 03/22/24 Unknown History release brimonidine 0.2 %-timolol 0.5 % 1 drp EACH EYE BID 06/16/22 03/22/24 Unknown History eye drops midodrine 5 mg tablet 5 mg PO TID 06/16/22 03/22/24 10/17/23 04:00 History rivaroxaban 20 mg tablet (Xarelto) 20 mg PO DAILY 03/13/23 03/22/24 10/15/23 History terazosin 10 mg capsule 10 mg PO HS 03/13/23 03/22/24 Unknown History multivitamin 1 tablet PO DAILY 10/09/23 03/22/24 Unknown History polyethylene glycol 3350 17 gram 17 g PO DAILY 10/09/23 03/22/24 Unknown History oral powder packet (Miralax) vitamins A,C,A-guvf-[id number] 2,148 2 tablet PO BID 10/09/23 03/22/24 Unknown History mcg-113 mg-45 mg-17.4 mg tablet (PreserVision AREDS) potassium chloride 10 mEq 10 meq PO DAILY 10/15/23 03/22/24 Unknown History tablet,extended release pramipexole 1 mg tablet See Rx Instructions .Route .COMPLEX 11/16/23 03/22/24 Unknown History ferrous sulfate 325 mg (65 mg 325 mg PO DAILY 12/14/23 03/22/24 Unknown History iron) tablet ascorbic acid (vitamin C) 1,000 mg 1 g PO DAILY 03/21/24 03/22/24 Unknown History capsule carbidopa 25 mg-levodopa 100 mg 1 tablet PO TID 03/21/24 03/22/24 Unknown History tablet carbidopa 25 mg-levodopa 250 mg 2 tablet PO TID 03/21/24 03/22/24 Unknown History tablet cinnamon bark 500 mg capsule 500 mg PO DAILY 03/21/24 03/22/24 Unknown History (Cinnamon) furosemide 40 mg tablet 40 mg PO QAM 03/21/24 03/22/24 Unknown History doxycycline hyclate 100 mg tablet 100 mg PO BID 03/22/24 03/22/24 Unknown History Allergies Allergy/AdvReac Type Severity Reaction Status Date / Time No Known Allergies Allergy Verified 04/23/24 12:24 Review of Systems Review of Systems: All systems reviewed & are unremarkable except as noted in HPI and below Constitutional: Constitutional: Reports as per HPI and Reports no additional constitutional complaints Eyes: Eyes: Reports as per HPI and Reports no additional eye complaints Cardiovascular: Comments: dental bleeding after he had dental work done in his left lower molars Respiratory: Respiratory: Reports as per HPI and Reports no additional respiratory complaints Gastrointestinal: Gastrointestinal: Reports as per HPI and Reports no additional gastrointestinal complaints Genitourinary: Genitourinary: Reports no additional male genitourinary complaints and Reports as per HPI Musculoskeletal: Musculoskeletal: Reports no additional musculoskeletal complaints and Reports as per HPI Integumentary/Breasts: Skin/Breast: Reports system reviewed and no additional complaints, except as docu and Reports as per HPI Neurologic: Reports system reviewed and no additional complaints, except as documented and Reports as per HPI Psychiatric: Psychiatric: Reports no additional psychiatric complaints and Reports as per HPI Endocrine: Endocrine: Reports no additional endocrine complaints and Reports as per HPI Hematologic/Lymphatic: Hematologic/Lymphatic: Reports no additional hematologic/lymphatic complaints and Reports as per HPI Allergic/Immunologic: Allergic/Immunologic: Reports no additional allergic/immunologic complaints and Reports as per HPI [facility] Past Medical History Medical History HLD (hyperlipidemia) Afib Parkinson disease Surgical History Surgical History Hx of cataract surgery History of hip surgery History of ankle surgery History of heart surgery Family History Family History Other Cerebrovascular accident Family history of arthritis Hypertension Social History Social History Smoking status: Never smoker Alcohol intake: current Alcohol use details: Social - 1-2 drinks per month Substance use: never Substance use type: does not use Do You Feel Safe in your Home?: Yes Lack of Transportation: No Lack of Food: Never True Current Housing: I Have Housing Concerned About Future Housing: No Difficulty Paying Gas/Electric Bills: No Difficulty Paying for Meds: No Currently Unemployed: No Education: High School Diploma/GED Difficulty w/ Childcare or Family Care: No Spiritual care concerns: No Exam Narrative: blood pressure is 154/88. Oxygen saturation of 98% on room air with a respiratory rate of 18. Const: General: no acute distress Orientation/consciousness: patient oriented x3 Limitations: no limitations HENMT: Head: normal to inspection Ears: external ears normal Face/Nose/Sinus: Normal external nose present Face and sinus: normal facial exam Mouth: Yes Normal oral and palatal mucosa present Teeth and gingiva: abnormal tooth and associated gingiva ( Bleeding from left lower molars) Throat: posterior oropharynx normal Eyes: Conjunctivae: conjunctivae normal Pupils: Equal, round and reactive pupils present EOM: EOMs intact bilaterally Direct Ophthalmoscopy: no photophobia Neck: Neck: normal visual inspection, no lymphadenopathy and no meningeal signs Chest: Chest palpation & inspection: normal inspection of the chest Resp: Effort & Inspection: normal respiratory effort Auscultation: clear to auscultation bilaterally Cardio: Rate: regular rate Rhythm: regular rhythm GI: GI Palp: Yes Soft to palpation Auscultation: normal bowel sounds : General: Yes no CVA tenderness Back/Spine/Pelvis: Back: no CVA tenderness Skin: General skin exam: normal color Rashes: no rashes Wounds: no wounds Neuro: General: patient oriented x3, moves all extremities, no meningeal signs, no focal motor deficits and CN's II-XI intact bilaterally Cranial nerves: Yes Nystagmus not present Speech: normal speech Extrem: General: normal to inspection and no clubbing, cyanosis or edema Psych: Mental Status: mental status grossly normal Affect: normal affect Course Course Emergency Course: accidental fall with head injury-- CT of the head and the C-spine did not show any acute findings. dental bleeding after dental Filling Vital Signs Vital signs: Vital Signs Temperature 36.7 C 04/23/24 12:18 Pulse Rate 94 04/23/24 12:18 Respiratory Rate 18 04/23/24 12:18 Blood Pressure 154/88 H 04/23/24 12:18 Pulse Oximetry 98 04/23/24 12:18 Oxygen Delivery Room Air 04/23/24 12:18 Temperature 36.7 C 04/23/24 12:18 Pulse Rate 94 04/23/24 12:18 Respiratory Rate 18 04/23/24 12:18 Blood Pressure 154/88 H 04/23/24 12:18 Pulse Oximetry 98 04/23/24 12:18 Oxygen Delivery Room Air 04/23/24 12:18 MDM - Fall MDM Narrative Medical decision making narrative: accidental fall coagulopathy secondary to Xarelto left lower dental bleeding status post dental filling Differential Diagnosis Differential diagnosis: Likely concussion without loss of consciousness Discharge Plan Discharge Clinical Impression: Dental caries, Oral bleeding Head injury Qualifiers: Encounter type: initial encounter Qualified Code(s): S09.90XA - Unspecified injury of head, initial encounter Patient Disposition: Home, Self-Care Condition: Stable Instructions: Antibiotic Form, Head Injury (ED) Additional Instructions: discussed head injury precautions. advised to put compression on the bleeding site in the left lower jaw. Patient Language: [place] Citizen Prescriptions: No Action terazosin 10 mg capsule 10 mg PO HS Xarelto 20 mg tablet 20 mg PO DAILY pramipexole 1 mg tablet See Rx Instructions .ROUTE .COMPLEX Rx Instructions: 3 tab TID atorvastatin 20 mg tablet 40 mg PO HS levothyroxine 75 mcg tablet 75 mcg PO DAILY Lumigan 0.01 % drops 1 drp EACH EYE HS carbidopa-levodopa 25-250 mg tablet 2 tablet PO TID aspirin 81 mg Tablet,Delayed Release (Dr/Ec) 81 mg PO DAILY midodrine 5 mg Tablet 5 mg PO TID Rx Instructions: do not give last dose of day after 6PM or within 4 hrs of bedtime brimonidine-timolol 0.2-0.5 % Drops 1 drp EACH EYE BID pantoprazole [Protonix] 40 mg Tablet,Delayed Release (Dr/Ec) 40 mg PO QAM Qty: 60 0RF doxycycline hyclate 100 mg tablet 100 mg PO BID oxycodone-acetaminophen [Percocet] 5-325 mg tablet 1 tablet PO Q6H PRN (Reason: pain) Qty: 20 0RF ondansetron 4 mg tablet,disintegrating 4 mg PO Q6H PRN (Reason: nausea and vomiting) Qty: 14 0RF ferrous sulfate 325 mg (65 mg iron) tablet 325 mg PO DAILY multivitamin Tablet 1 tablet PO DAILY polyethylene glycol 3350 [Miralax] 17 gram powder in packet 17 g PO DAILY PreserVision AREDS 2,148 mcg-113 mg-45 mg-17.4mg tablet 2 tablet PO BID Rx Instructions: administer with AM and PM meals carbidopa-levodopa 25-100 mg tablet 1 tablet PO TID furosemide 40 mg tablet 40 mg PO QAM cinnamon bark [Cinnamon] 500 mg capsule 500 mg PO DAILY ascorbic acid (vitamin C) 1,000 mg capsule 1 g PO DAILY potassium chloride 10 mEq tablet extended release 10 meq PO DAILY Follow-up/Referrals: Leticia Handley MD [Primary Care Provider] - Time of Disposition: 13:24
--- NOTE | 2024-04-23 13:10 | PC.NURSE ---
PT HAS RETURNED FROM CT. WARM BLANKETS PROVIDED. MILD OOZING CONTINUES, GAUZE HAS BEEN CHANGED. WILL CONTINUE TO MONITOR.
[2024-04-23 13:45] VITALS: BP 129/67; PULSE 66; RESP 18; O2SAT 99
--- NOTE | 2024-04-23 13:56 | PC.NURSE ---
BLEEDING HAS STOPPED, DRIED BLOOD CLEANED UP ON FACE AND CHIN. PT WAS RESTING WITHOUT DISTRESS ON STRETCHER PRIOR TO DC. VERBALIZED UNDERSTANDING OF DC AND FOLLOW UP INSTRUCTIONS.
== END 2024-04-23 13:45 | disposition home or self-care (01) ==
PROVIDERS: Emergency Provider Internal Medicine Critical Care Medicine; PCP Internal Medicine
DX: K02.9 Dental caries, unspecified (principal); S09.90XA Unspecified injury of head, initial encounter; I10 Essential (primary) hypertension; E03.9 Hypothyroidism, unspecified; G20.A1 Parkinson's disease without dyskinesia, without mention of fluctuations; I48.91 Unspecified atrial fibrillation; I25.10 Atherosclerotic heart disease of native coronary artery without angina pectoris; Z79.01 Long term (current) use of anticoagulants; W19.XXXA Unspecified fall, initial encounter; Y92.009 Unspecified place in unspecified non-institutional (private) residence as the place of occurrence of the external cause
CPT/HCPCS: 70450; 72125; 99284

== ENCOUNTER 2024-05-12 14:00 | Outpatient (RCR) | payer MEDICARE, SELFPAY ==
--- NOTE | 2024-05-08 16:53 | OPREHPOC ---
Outpatient Therapy Plan of Care This is a Multidisciplinary Plan of Care that may contain components documented by all disciplines (PT, OT, and ST.) PT Problem 1 PT Problem #1 Knowledge Deficit PT Goal 1 Goal / Goal Update 1. independent and compliant with HEP Target Visit 6 PT Problem 2 PT Problem #2 Impaired Balance PT Goal 1 Goal / Goal Update 1. tug to be completed in 45 seconds or less safely with WW 2. 5x sit to stand to be completed in 35 second or less safely with only 1 attempt required to stand on the initial stand from chair 3. tinetti to display improvement by 4 points or better Target Visit 12 PT Problem 3 PT Problem #3 Impaired Gait PT Goal 1 Goal / Goal Update 1. improve gait efficiency during 2 minute walk test to achieve 180 ft or better with WW Target Visit 12 PT Problem 4 PT Problem #4 Impaired Functional Mobility PT Goal 1 Goal / Goal Update 1. patient to complete all sit to stand bouts from chair with arms during 1st attempt 2. no falls in the last 4 weeks. Target Visit 12
--- NOTE | 2024-05-08 16:53 | PTOPEVAL1 ---
Assessment and note entered by JT File, PT Evaluation Information Assessment Status Evaluation Diagnosis parkinson's disease ICD-10 Condition Codes (PT) Repeated falls R29.6,Difficulty Walking R26.2, Abnormalities of gait and mobility R26.9 Other ICD-10 Condition Codes ( G20.A1 PT) Onset 03/12/24 Subjective Information patient reports he has been really struggling lately. he reports he has noticed more difficulty walking, getting up and down from chairs, and has had several falls. he reports he is almost always using the walker to get around. he reports he has noticed worse physical performance over the last 3 months. he reports he is disappointed in not being able to do the things he wants to do around the home and shop. Reported Pain Level Pain Score 0: Self Report Assessment PT Clinical Summary mr. noriega is an 83 yo man who presents to skilled PT with difficulty walking, standing from a chair, and maintaining his balance. he is complicated by age and Parkinson's disease. he displays a high fall risk per the tinetti, 5x sit to stand, and tug score today. he also displays poor gait efficiency only achieving 1.02 ft per second on the 2 minute walk test. he would benefit from continued skilled PT to improve his objective/functional deficits and increase his balance, transfer performance, safety, and gait efficiency to improve his functional activity performance/quality of life. Plan of Care Interventions Gait Training,Neuro Re-education,Patient/Caregiver Education,Therapeutic Activities,Therapeutic Exercise PT Services Indicated Yes Treatment Frequency and 3x weekly for 12 visits Duration These treatments will address the objective and functional deficits as defined above. The patient will be advanced safely and appropriately in order for the patient to progress towards his/her prior level of function. Additional exercises will be introduced and as well as a comprehensive home exercise program upon discharge, if needed, ?to ensure carryover of functional gains achieved in the clinic. This treatment plan has been reviewed and agreement upon by the patient.
--- NOTE | 2024-05-30 15:44 | OPREHPOC ---
Outpatient Therapy Plan of Care This is a Multidisciplinary Plan of Care that may contain components documented by all disciplines (PT, OT, and ST.) PT Problem 1 PT Problem #1 Knowledge Deficit PT Goal 1 Goal / Goal Update 1. independent and compliant with HEP Target Visit 6 Progress Met PT Problem 2 PT Problem #2 Impaired Balance PT Goal 1 Goal / Goal Update 1. tug to be completed in 45 seconds or less safely with WW. not met 2. 5x sit to stand to be completed in 35 second or less safely with only 1 attempt required to stand on the initial stand from chair. not met 3. tinetti to display improvement by 4 points or better Target Visit 12 Progress Not Met PT Problem 3 PT Problem #3 Impaired Gait PT Goal 1 Goal / Goal Update 1. improve gait efficiency during 2 minute walk test to achieve 180 ft or better with WW Target Visit 12 Progress Met PT Problem 4 PT Problem #4 Impaired Functional Mobility PT Goal 1 Goal / Goal Update 1. patient to complete all sit to stand bouts from chair with arms during 1st attempt 2. no falls in the last 4 weeks. Target Visit 12 Progress Partially Met
--- NOTE | 2024-05-30 15:44 | PTOPPROGNS ---
Assessment and note entered by JT File, PT Evaluation Information Assessment Status Progress Diagnosis parkinson's disease ICD-10 Condition Codes (PT) Repeated falls R29.6,Difficulty Walking R26.2, Abnormalities of gait and mobility R26.9 Other ICD-10 Condition Codes ( G20.A1 PT) Onset 03/12/24 Subjective Information patient reports he feels he is moving a little better. he reports the cold weather lately has been really slowing him down tho. he reports he is compliant with his HEP at home. he reports he has not had any falls since returning to skilled PT. Assessment PT Clinical Summary mr. noriega presents to skilled PT services for his 10th skilled PT visit for parkinsons disease. he presents today with improvements in time on the TUG and 5x sit to stand, as well as, an improvement in tinetti raw score. however, he still lacks achievement of balance and functional goals. he would benefit from continued skilled PT to address his remaining balance and functional deficits and improve his quality of life/ functional activity performance. Plan of Care Interventions Gait Training,Neuro Re-education,Patient/Caregiver Education,Therapeutic Activities,Therapeutic Exercise PT Services Indicated Yes Treatment Frequency and continue per initial POC Duration These treatments will address the objective and functional deficits as defined above. The patient will be advanced safely and appropriately in order for the patient to progress towards his/her prior level of function. Additional exercises will be introduced and as well as a comprehensive home exercise program upon discharge, if needed, ?to ensure carryover of functional gains achieved in the clinic. This treatment plan has been reviewed and agreement upon by the patient.
--- NOTE | 2024-06-04 15:15 | PTOPPROG ---
Assessment and note entered by [facility] Evaluation Information Assessment Status Progress Diagnosis Parkinson's Disease ICD-10 Condition Codes (PT) Repeated falls R29.6,Difficulty Walking R26.2, Abnormalities of gait and mobility R26.9 Other ICD-10 Condition Codes ( G20.A1 PT) Onset 03/12/24 Subjective Information Pt. states that his walking has improved. He reports that he is getting into the community by himself. He denies any recent falls. He states that he still is slow to get out of a chair and unsteady when on his feet. He continues use of his walker with all activities. Assessment PT Clinical Summary Mr. Eagle has attended a total of 12 treatment sessions focused on balance, strength, gait and endurance. He demonstrates improvements in balance and gait efficiency. Despite these improvements deficits remain and pt. continues to present as a high fall risk. Given his diagnosis of PD and continued balance deficits, continue to perform adequate exercise at home will be unsafe. Recommend continued skilled PT in order to stimulate balance and strength to prevent future falls and maintain pt. current functional status. Plan of Care Interventions Gait Training,Manual Therapy,Neuro Re-education, Patient/Caregiver Education,Therapeutic Activities ,Therapeutic Exercise,Self-Care/Home Management PT Services Indicated Yes Treatment Frequency and Continue treatment 2x/week x 10 visits Duration These treatments will address the objective and functional deficits as defined above. The patient will be advanced safely and appropriately in order for the patient to progress towards his/her prior level of function. Additional exercises will be introduced and as well as a comprehensive home exercise program upon discharge, if needed, ?to ensure carryover of functional gains achieved in the clinic. This treatment plan has been reviewed and agreement upon by the patient.
--- NOTE | 2024-07-09 13:53 | OPREHPOC ---
Outpatient Therapy Plan of Care This is a Multidisciplinary Plan of Care that may contain components documented by all disciplines (PT, OT, and ST.) PT Problem 1 PT Problem #1 Knowledge Deficit PT Goal 1 Goal / Goal Update 1. independent and compliant with HEP Target Visit 6 Progress Met PT Problem 2 PT Problem #2 Impaired Balance PT Goal 1 Goal / Goal Update 1. tug to be completed in 45 seconds or less safely with WW. met 2. 5x sit to stand to be completed in 35 second or less safely with only 1 attempt required to stand on the initial stand from chair. met 3. tinetti to display improvement by 4 points or better. not met Target Visit 22 Progress Partially Met PT Problem 3 PT Problem #3 Impaired Gait PT Goal 1 Goal / Goal Update 1. improve gait efficiency during 2 minute walk test to achieve 180 ft or better with WW New Goal 06/04/24: Pt. will complete the 6 minute walk test over a distance of 500' or greater. Target Visit 22 Progress Met PT Problem 4 PT Problem #4 Impaired Functional Mobility PT Goal 1 Goal / Goal Update 1. patient to complete all sit to stand bouts from chair with arms during 1st attempt. not met 2. no falls in the last 4 weeks. met Target Visit 22 Progress Partially Met PT Problem 5 PT Problem #5 Impaired Functional Mobility PT Goal 1 Goal / Goal Update 1. patient to maintain tug, 5x sit to stand, 6mwt, and tinetti within 5% of all current measures. Target Visit 26
--- NOTE | 2024-07-09 13:53 | PTOPREEVAL ---
Assessment and note entered by JT File, PT Evaluation Information Assessment Status Re-evaluation Diagnosis Parkinson's Disease ICD-10 Condition Codes (PT) Repeated falls R29.6,Difficulty Walking R26.2, Abnormalities of gait and mobility R26.9 Other ICD-10 Condition Codes ( G20.A1 PT) Onset 03/12/24 Subjective Information patient reports he feels pretty good today. he reports he has felt better using the walker at all times. he reports he does walk a bunch in his shop at home. he reports his shop has a good 100ft track he can walk with his walker. Reported Pain Level Pain Score 0: Self Report Assessment PT Clinical Summary mr. noriega presents to skilled PT for his nd skilled PT visit for rehab due to Parkinson's disease. he presents this date with progress towards and achievement of several goals. he displays improved gait efficiency, improved scoring on the tug and 5x sit to stand, and no falls since starting PT. he is at a point now where he should continued skilled PT under a maintenance program to maintain his functional abilities and improvements made through PT. Plan of Care Interventions Gait Training,Manual Therapy,Neuro Re-education, Patient/Caregiver Education,Therapeutic Activities ,Therapeutic Exercise,Self-Care/Home Management PT Services Indicated Yes Treatment Frequency and continue skilled PT 1x weekly for 4 visits in a Duration maintenance program These treatments will address the objective and functional deficits as defined above. The patient will be advanced safely and appropriately in order for the patient to progress towards his/her prior level of function. Additional exercises will be introduced and as well as a comprehensive home exercise program upon discharge, if needed, ?to ensure carryover of functional gains achieved in the clinic. This treatment plan has been reviewed and agreement upon by the patient.
== END 2024-08-06 23:59 | disposition home or self-care (01) ==
LOC: CHSPT 14:00
DX: G20.A1 Parkinson's disease without dyskinesia, without mention of fluctuations (principal); R29.6 Repeated falls; R26.2 Difficulty in walking, not elsewhere classified
CPT/HCPCS: 36415; 80053; 80061; 81003; 82550; 82607; 82728; 83036; 83540; 84439; 84443; 84481; 85025; 85027; 96365; 96366; 97110; 97112; 97161; 97530; 97750; J1756; J7050

== ENCOUNTER 2024-06-11 06:47 | Outpatient (CLI) | payer MEDICARE, SELFPAY ==
--- OUTSIDE RECORDS SUMMARY | 2024-06-11 06:50 | XMS_ITS | Clinical Summary ---
Author Organization [facility] [address] Address [address] [place] [address] Care Team Providers Care Agriculture Sales Account Manager Name Role Phone Leticia Handley MD Primary Care Provider [phone] Allergies No known active allergies Medications brimonidine-pan loL (COMBIGAN) 0.2-0.5 % ophthalmic solution Administer 1 drop into affected eye(s) 2 (two) times a day 2 Active bimatoprost (Lumigan) 0.01 % ophthalmic drops Administer 1 drop into both eyes nightly 2 Active multivitamin capsule Take 1 capsule by mouth daily Active ascorbic acid (VITAMIN C) 1,000 mg tablet Take 1 tablet (1,000 mg total) by mouth daily Active aspirin 81 mg enteric coated tablet Take 1 tablet (81 mg total) by mouth daily 30 tablet 1 3 Active levothyroxine (SYNTHROID) 75 mcg tablet Take 1 tablet (75 mcg total) by mouth consultant dietitian before breakfast 30 tablet 1 3 Active polyethylene glycol (MIRALAX) 17 gram packetIndication s:constipation Take 1 packet (17 g total) by mouth daily 20 packet 1 3 Active terazosin (HYTRIN) 10 mg capsule 3 Active vit A/C/E ac/ZnOx/cupric oxide (EYE VITAMIN AND MINERALS ORAL) Take by mouth A ctive atorvastatin (LIPITOR) 20 mg tablet TAKE 1 TABLET BY MOUTH EVERY DAY 90 tablet 1 3 Active midodrine (PROAMATINE) 5 mg tablet TAKE 1 TABLET BY MOUTH 3 TIMES A DAY BEFORE MEALS. 270 tablet 3 4 Active timolol (TIMOPTIC) 0.5 % ophthalmic solution 1 drop 2 (two) times a day Active brimonidine (ALPHAGAN) 0.2 % ophthalmic solution 1 drop 3 (three) times a day Active carbidopa-levodo pa (SINEMET) 25-250 mg per tabletIndication s:Idiopathic Parkinsonism Take 2.5 tablets by mouth 3 (three) times a day 675 tablet 3 4 09/18/19 25 Active Additional Information Patient taking differently: 2 tabletoral 3 times daily, Indications: Idiopathic Parkinsonism, Reported on 03/13/[address] (PROTONIX) 40 mg EC tablet TAKE 1 TABLET BY MOUTH EVERY DAY 90 tablet 3 4 Active carbidopa-levodo pa (SINEMET) 25-100 mg per tabletIndication s:Parkinsonism Take 1 tablet by mouth 3 (three) times a day 270 tablet 3 4 01/02/20 25 Active pramipexole (MIRAPEX) 1 mg tablet Take 3 tablets (3 mg total) by mouth 3 (three) times a day 810 tablet 3 4 Active potassium chloride ER 10 mEq CR tablet TAKE 1 TABLET/CAPSULE (10 MEQ TOTAL) BY MOUTH DAILY 90 tablet 2 4 Active rasagiline (AZILECT) 0.5 mg tabletIndication s:Idiopathic Parkinsonism 1 tab qam 90 tablet 3 4 Active Additional Information Patient not taking.Reported on 03/13/2024 rivaroxaban (XARELTO) 20 mg tablet Take 1 tablet (20 mg total) by mouth daily with dinner 30 tablet 2 4 Active ferrous sulfate 325 mg (65 mg of elemental iron) tablet Take 1 tablet (325 mg total) by mouth 3 (three) times a day 4 Active furosemide (LASIX) 40 mg tablet TAKE 1 TABLET BY MOUTH EVERY DAY 90 tablet 2 4 Active Active Problems Problem Noted Date Diagnosed Date Chronic anticoagulation 05/08/2023 Autonomic orthostatic hypotension 01/26/2023 S/P CABG x 2 07/17/2022 S/P aortic valve replacement with bioprosthetic valve 07/17/2022 Postoperative atrial fibrillation ([facility]) 07/05 Chronic heart failure with p reserved ejection fraction (HFpEF) ([facility]) 02/08/2021 Localized edema 12/15/2019 Parkinson's disease 06/09/2019 Assessment & Plan (03/12/2024 1:31 PM BRICK AND TILE MAKING MACHINE OPERATOR): 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 He has good response to levodopa + pramipexole, though feels like he is getting less benefit in the past few months. He is tolerating current dose of C/L without wearing off. He remains on Pramipexole since previous attempts to wean caused him worsening balance. He stopped Rasagiline since he did not see any benefit from it. He has some imbalance and light headedness on standing/ walking, encouraged him to monitor obp. He had more freezing of gait without any response with levodopa. He was doing some group exercises. He could benefit from PT for FOG, will send rx. He did not have subjectively any worsening memory , but his moca was only 13 during last visit. We will draw some labs to check reversible causes of dementia. Reviewed strict fall precautions. Plan: Check OBP ( sitting and standing), instructions provided 2. Start Pt, rx sent 3. Labs to evaluate memory ( low moca last npt) - b12, thiamine, tsh and cobalt ( history of cobalt hip and the level was high at one point in the past) 4. Fall precautions 5. 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 He has good response to levodopa + pramipexole, though feels like he is getting less benefit in the past few months. He is on a fairly high dose at 500mg TID, but is not experiencing side-effects or wearing off. We discussed treatment options, and decided to try weaning off pramipexole due to the higher risk of side-effects. His local neurologist attempted this recently but his balance worsened, so we will concurrently increase levodopa to 2.5 tabs to hopefully avoid this. We discussed that we may need to convert to or add 25/100mg pills in the future to allow more flexible titration, but for now can stay with 25/250. He and his family have not noticed major cognitive changes, but testing today showed likely cognitive involvement with MOCA 13, MMSE 21, which is further reason to try to transition off pramipexole. Recommendations: -wean off pramipexole -- decrease by 1 tab each week -increase CD/LD 25/250mg to 2.5 tabs TID -continue regular exercise H/O cardiomyopathy 02/12/2018 S/P coronary artery stent placement 11/29/2016 Coronary artery disease invo lving [place] vie[place] coronary artery of [place] heart without angina pectoris 08/14/2016 Overview (09/29/2016): Coronary artery disease involving [place] coronary artery of [place] heart with other form of angina pectoris YANET on CPAP 08/02/2015 Overview (08/10/2016): YANET on CPAP Hypertensive heart disease with congestive heart failure 08/02/2015 Overview (08/10/2016): Hypertensive heart disease with diastolic heart failure Myocardial infarction 04/26/2015 Overview (08/10/2016): ST elevation (STEMI) myocardial infarction of inferior wall Cardiomyopathy 04/26/2015 Overview (08/10/2016): Cardiomyopathy Chronic fatigue syndrome 04/26/2015 Overview (08/10/2016): Chronic fatigue Fatigue 12/08/2014 Overview (08/10/2016): Fatigue Resolved Problems Problem Noted Date Diagnosed Date Resolved Date Coronary artery disease due to calcified coronary lesion 06/05/2022 01/26/2023 Presence of stent in coronary artery 02/19/2017 06/15/2021 Nonrheumatic aortic valve stenosis 08/02/2015 01/26/2023 Overview (08/10/2016): Nonrheumatic aortic valve stenosis History of placement of sten t for coronary artery disease 04/26/2015 08/02/2023 Overview (08/10/2016): S/P coronary artery stent placement Dyslipidemia 04/26/2015 06/15/2021 Overview (08/10/2016): Mixed dyslipidemia History of cardiac catheterization 08/04/2014 09/27/2021 Overview (08/10/2016): S/P right coronary artery (RCA) stent placement Generalized ischemic myocardial dysfunction 08/04/2014 09/27/2021 Overview (08/10/2016): Ischemic cardiomyopathy Aortic valve stenosis 05/11/20142021 Overview (08/10/2016): Aortic stenosis Encounters Date Type Department Care Team Description 05/19/2024 Telephone [facility] Cardiology [address] [facility] [address] [place] [phone] Freeman Chavira MD 04/10/2024 5:53 PM BRICK AND TILE MAKING MACHINE OPERATOR - 04/10/2024 11:59 PM BRICK AND TILE MAKING MACHINE OPERATOR Hospital Encounter [facility] [address] [place] [id number] Diagnosis unknown Discharge Disposition: Discharge to home or self care 04/10/2024 2:00 PM BRICK AND TILE MAKING MACHINE OPERATOR Office Visit [facility] Surgery [address] [facility] [address] [place] [address] Mauro Kidd MD Umbilical hernia without obstruction and without gangrene (Primary Dx); Chronic cholecystitis; Left inguinal hernia 03/31/2024 Telephone [facility] Movement Disorders [address] [place] [phone] Charlette Arias RN 03/13/2024 10:00 AM BRICK AND TILE MAKING MACHINE OPERATOR Office Visit [facility] Cardiology [address] [place] [address] Carla Rodrigues NP Chronic heart failure with preserved ejection fraction (HFpEF) (CMS/HCC) (HCC) (Primary Dx); Edema, lower extremity; Coronary artery disease involving [place] vie[place] coronary artery of lac vie[place] heart without angina pectoris; S/P aortic valve replacement with bioprosthetic valve; Chronic anticoagulation; Postoperative atrial fibrillation (CMS/HCC) (HCC) 03/12/2024 11:30 AM BRICK AND TILE MAKING MACHINE OPERATOR Telemedicine [facility] Movement Disorders [address] [place] [phone] Karrie Reynolds NP Parkinson's disease, unspecified whether dyskinesia present, unspecified whether manifestations fluctuate ([facility]) (Primary Dx); Mild cognitive impairment with memory loss from Last 3 Months Surgical History Surgery Date Site/Laterality Comments CORONARY ANGIOPLASTY WITH ST ENT PLACEMENT TOTAL HIP ARTHROPLASTY Left TOTAL ANKLE ARTHROPLASTY 05/07/2016 - 05/06/2017 Left CATARACT EXTRACTION, BILATERAL LUMBAR SPINE SURGERY CORONARY ARTERY BYPASS GRAFT 06/05/2022 CARDIAC VALVE REPLACEMENT 06/05/2022 JOINT REPLACEMENT 10/27/2010 and 03/2017 Medical History Medical History Date Comments Cardiovascular disease Coronary Artery Disease Hypertension Hypertension Adiposity Obesity Sleep apnea CPAP SC (myocardial infarction) (HCC) 2014 CAD (coronary artery disease) Parkinson's disease (HCC) Skin cancer Back Nonrheumatic aortic (valve) stenosis Type 2 diabetes mellitus (HCC) H /O CHF (congestive heart failure) (CMS/HCC) (HCC) Cardiomyopathy (HCC) Chronic fatigue syndrome Arthritis Benign prostatic hyperplasia Glaucoma Heart disease Thyroid disease Family History Medical History Relation Name Comments Stroke Father Viral Unexplained Father Viral Unexplained Mother Parkinsonism Mother's Brother ALS Neg Hx Seizures Neg Hx Tremor Neg Hx Relation Name Status Comments Father Viral (Age 87) Mother (Age 89) Mother's Brother Alive Social History Tobacco Use Types Packs/Day Years Used Date Smoking Tobacco: Never Smokeless Tobacco: Never Tobacco Cessation:Counseling Given: Not Answered Alcohol Use Standard Drinks/Week Comments Yes 0 (1 standard drink = 0.6 oz pur e alcohol) Social Connection and Isolation Panel [NHANES] A nswer Date Recorded In a typical week, how many times do you talk on the phone with family, friends, or neighbors? Three times a week 06/06/2022 How often do you get togethe r with friends or relatives? Three times a week 06/06/2022 Attends L[employer] Day Services Not on file 06/06 Active Member of Clubs or Organizations Not on f ile 06/06/2022 Attends Club or Organization Meetings Not on estefani e 06/06/2022 Are you , , di vorced, , never , or living with a partner? 06/06/2022 AUDIT-C Answer Date Recorded Q1: How often do you have a drink containing alc ohol? 2-4 times a month 06/05/2022 Q2: How many drinks containi ng alcohol do you have on a typical day when you are drinking? 1 or 2 06/05/2022 Q3: How often do you have si x or more drinks on one occasion? Never 06/05/2022 Overall Financial Resource Strain (CARDIA) Answe r Date Recorded How hard is it for you to pa y for the very basics like food, housing, medical care, and heating? Not hard at all 06/06/2022 Hunger Vital Sign Answer Date Recorded Within the past 12 months, y ou worried that your food would run out before you got the money to buy more. Never true 06/06/19 23 Within the past 12 months, t he food you bought just didn't last and you didn't have money to get more. Never true 06/06/2022 PRAPARE - Transportation Answer Date Re corded In the past 12 months, has l ack of transportation kept you from medical appointments or from getting medications? No 05/09 In the past 12 months, has l ack of transportation kept you from meetings, work, or from getting things needed for daily living? No 06/06/2022 Housing Stability Vital Sign Answer Jerad e Recorded In the last 12 months, was t here a time when you were not able to pay the mortgage or rent on time? No 06/06/2022 Number of Places Lived in the Last Year Not on f ile 06/06/2022 In the last 12 months, was t here a time when you did not have a steady place to sleep or slept in a fpc (including now)? No 06/06/2022 Personal Safety Answer Date Recorded Getting School Help Needed Denies 05/05 Sex and Gender Information Value Date Recorded Sex Assigned at Not on file Legal Sex Male 12:29 AM BRICK AND TILE MAKING MACHINE OPERATOR Gender Identity Not on file Sexual Orientation Not on file Obstetrics History Last Filed Vital Signs Vital Sign Reading Time Taken Comments Blood Pressure 99/62 04/10/2024 2:18 PM BRICK AND TILE MAKING MACHINE OPERATOR Pulse 51 04/10/2024 2:18 PM BRICK AND TILE MAKING MACHINE OPERATOR Temperature 36.8 ??C (98.2 ??F) 04/10/2024 2:18 PM CS T Respiratory Rate 18 04/10/2024 2:18 PM BRICK AND TILE MAKING MACHINE OPERATOR Oxygen Saturation 97% 04/10/2024 2:18 PM BRICK AND TILE MAKING MACHINE OPERATOR Inhaled Oxygen Concentration - - Weight 84.4 kg (186 lb) 04/10/2024 2:18 PM BRICK AND TILE MAKING MACHINE OPERATOR Height 167.6 cm (5' 5.98 ) 04/10/2024 2:18 PM CS T Body Mass Index 30.04 04/10/2024 2:18 PM BRICK AND TILE MAKING MACHINE OPERATOR Plan of Treatment Health Maintenance Due Date Last Done Comments Albumin Creatinine Ratio, Urine 1938 Dilated Eye Exam 1938 Foot Exam 1938 Hepatitis B Screening 1956 Zoster Vaccine (1 of 2) 1988 Well Visit 65+ 11/18/2003 DTaP/Tdap/Td Vaccine (1 - Tdap) 01/24/2012 2 Hemoglobin A1C 11/27/2022 05/30/2022 Fall Risk Assessment 06/16/2023 06/16/2022 eGFR 06/16/2023 06/16/2022, 02/0 01/2023, 06/14/2022, Additional history exists Influenza Vaccine (#1) 2024 9, 01/25/2018, 02/15/2017, Additional history exists Lipid Panel 08/01/2024 08/02/2023, 07/05, 05/24/2021, Additional history exists Depression Screening 09/17/2024 09/18/2023 Pneumococcal vaccine 65+ Completed 03/04/2015, 11/2012 Medical Devices Implanted Type Area National Sales Director Device Identifier Shelf Expiration Date Model / Serial / Lot [employer] Plate Bone Low Profile 6 Hole H Shape Ti 115.102.06 - [id number] Implanted:Qty: 1 on 06/05/2022 by Nicolás Arevalo MD at [facility] Plate N/A: Sternum [employer] 115.102. 06 / / [employer] Plate Bone Low Profile 4 Hole Box Ti 115.103.04 - [id number] Implanted:Qty: 1 on 06/05/2022 by Nicolás Arevalo MD at [facility] Plate N/A: Sternum [employer] 115.103. 04 / / [employer] Plate Bone Low Profile 6 Hole O Concave Ti 115.604.06 - [id number] Implanted:Qty: 1 on 06/05/2022 by Nicolás Arevalo MD at [facility] Plate N/A: Sternum [employer] 115.604. 06 / / [employer] Von-Tim ds Perimount Magna Ease 23mm Bioprosthesis [id number] - [id number] - [id number] Implanted:Qty: 1 on 06/05/2022 by Nicolás Arevalo MD at [facility] Prosthetic Valve N/A: Heart [employer] 07/18/2024 [id number] / [id number] / [employer] Screw Bone Slf Drl Full Thread Locking 3.5x14mm Ti 100.035.14 - [id number] Implanted:Qty: 10 on 06/05/2022 by Nicolás Arevalo MD at [facility] Screw N/A: Sternum [employer] 100.035. 14 / / [employer] Screw Bone Slf Drl Full Thread Locking 3.5x16mm Ti 100.035.16 - [id number] Implanted:Qty: 6 on 06/05/2022 by Nicolás Arevalo MD at [facility] Screw N/A: Sternum [employer] 100.035. 16 / / Procedures Procedure Name Priority Date/Time Associated Diagnosis Comments CT BODY OUTSIDE CONSULT Routine 04/10/2024 5:53 PM BRICK AND TILE MAKING MACHINE OPERATOR Diagnosis unknown POCT LIPID PANEL Routine 08/02/2023 10:2 9 AM CDT Coronary artery disease involving lac vieux coronary artery of lac vieux heart without angina pectoris EGFR Routine 06/16/2022 10:03 AM BRICK AND TILE MAKING MACHINE OPERATOR HEMOGLOBIN A1C Routine 05/30/2022 12:59 PM BRICK AND TILE MAKING MACHINE OPERATOR Preop testing Type 2 diabetes mellitus with other specified complication, without long-term current use of insulin (HCC) from Last 3 Months or Most Recently Relevant to Health Maintenance Results * CT Body Outside Consult (04/10/2024 5:53 PM BRICK AND TILE MAKING MACHINE OPERATOR) Anatomical Region Laterality Modality Body N/A Computed Tomogra phy 04/11/2024 12:4 0 PM BRICK AND TILE MAKING MACHINE OPERATOR Impressions 04/11/2024 12:40 PM BRICK AND TILE MAKING MACHINE OPERATOR 1. ??Distended gallbladder with wall thickening and adjacent hyperemia in the liver, compatible with history of acute cholecystitis. 2. ??Small left pleural effusion with pleural thickening, increased from 05/18/2022. ??Reportedly, this effusion has been seen on interval examinations and has been documented as stable, however those interval images are not available for review. ??The differential for this finding includes chronic pleural effusion and empyema. The findings, conclusions and recommendations within this report do not replace the initial findings, conclusions ??and recommendations made at the facility where the study was performed based upon the imaging and clinical condition at that time. ??Comparison with the prior report and clinical history is necessary. ??The provided images may or may not represent the [place] vie[place] source data set and thus may contain changes that may lower the accuracy of this second-opinion interpretation. Electronically signed by: Boogie Smith MD, PHD Narrative 04/11/2024 12:40 PM BRICK AND TILE MAKING MACHINE OPERATOR EXAMINATION: RADIOLOGY CONSULTATION ON OUTSIDE IMAGING STUDY STUDY INITIALLY PERFORMED: 03/22/2024 at [facility]. TYPE OF STUDY: Multiple CT images of the chest, abdomen and pelvis with contrast are provided at the time of this interpretation. CONTRAST ROUTE: Contrast was administered via the intravenous route. The protocol was adequate to address the clinical question. The outside final report was not available at the time of this second opinion interpretation. TYPE OF CONSULTATION: Consult on outside imaging study with images submitted through Outside Image Sharing Service DATE OF CONSULTATION: 04/11/2024 12:25 PM HISTORY: Cholecystitis COMPARISON: CT chest 05/18/2022 FINDINGS: Heart size is mildly enlarged but stable. ??No pericardial effusion. Surgical changes of median sternotomy and coronary artery bypass as well as aortic valve replacement. ??Ascending thoracic aorta is mildly dilated at 44 mm, which is unchanged. ??No supraclavicular or axillary lymphadenopathy. ??No pathologically enlarged mediastinal or hilar atelectasis. There is a small left pleural effusion with a small amount of fluid tracking along the major fissure. ??There is continuous thickening and mild enhancement of the pleura. ??No right pleural effusion. ??No pneumothorax. ??Mild dependent atelectasis, left greater than right. Otherwise, the lungs are clear. The gallbladder is distended with wall thickening. ??There is adjacent hyperemia along the gallbladder fossa. ??Otherwise, no suspicious hepatic lesion. ??No bile duct dilatation. ??Pancreas and spleen are normal. ??Right adrenal gland is normal. ??Unchanged left adrenal myelolipoma. ??The kidneys enhance symmetrically. ??There is no hydronephrosis. ??Bilateral renal cysts are present. ??Urinary bladder is not distended. ??Small right posterior lateral bladder diverticulum. There is no ascites or pneumoperitoneum. ??Prostate is enlarged. ??The large and small bowel are normal in caliber without obstruction. Small hiatal hernia. ??Moderate fat-containing umbilical hernia. ??The abdominal aorta is atherosclerotic but not aneurysmal. ??No lymphadenopathy in the abdomen or pelvis. Left hip arthroplasty. ??Multilevel degenerative changes in the spine. No suspicious osseous lesion. Procedure Note Boogie Smith MD PhD - 04/11/2024 EXAMINATION: RADIOLOGY CONSULTATION ON OUTSIDE IMAGING STUDY STUDY INITIALLY PERFORMED: 03/22/2024 at [facility]. TYPE OF STUDY: Multiple CT images of the chest, abdomen and pelvis with contrast are provided at the time of this interpretation. CONTRAST ROUTE: Contrast was administered via the intravenous route. The protocol was adequate to address the clinical question. The outside final report was not available at the time of this second opinion interpretation. TYPE OF CONSULTATION: Consult on outside imaging study with images submitted through Outside Image Sharing Service DATE OF CONSULTATION: 04/11/2024 12:25 PM HISTORY: Cholecystitis COMPARISON: CT chest 05/18/2022 FINDINGS: Heart size is mildly enlarged but stable. No pericardial effusion. Surgical changes of median sternotomy and coronary artery bypass as well as aortic valve replacement. Ascending thoracic aorta is mildly dilated at 44 mm, which is unchanged. No supraclavicular or axillary lymphadenopathy. No pathologically enlarged mediastinal or hilar atelectasis. There is a small left pleural effusion with a small amount of fluid tracking along the major fissure. There is continuous thickening and mild enhancement of the pleura. No right pleural effusion. No pneumothorax. Mild dependent atelectasis, left greater than right. Otherwise, the lungs are clear. The gallbladder is distended with wall thickening. There is adjacent hyperemia along the gallbladder fossa. Otherwise, no suspicious hepatic lesion. No bile duct dilatation. Pancreas and spleen are normal. Right adrenal gland is normal. Unchanged left adrenal myelolipoma. The kidneys enhance symmetrically. There is no hydronephrosis. Bilateral renal cysts are present. Urinary bladder is not distended. Small right posterior lateral bladder diverticulum. There is no ascites or pneumoperitoneum. Prostate is enlarged. The large and small bowel are normal in caliber without obstruction. Small hiatal hernia. Moderate fat-containing umbilical hernia. The abdominal aorta is atherosclerotic but not aneurysmal. No lymphadenopathy in the abdomen or pelvis. Left hip arthroplasty. Multilevel degenerative changes in the spine. No suspicious osseous lesion. IMPRESSION: 1. Distended gallbladder with wall thickening and adjacent hyperemia in the liver, compatible with history of acute cholecystitis. 2. Small left pleural effusion with pleural thickening, increased from 05/18/2022. Reportedly, this effusion has been seen on interval examinations and has been documented as stable, however those interval images are not available for review. The differential for this finding includes chronic pleural effusion and empyema. The findings, conclusions and recommendations within this report do not replace the initial findings, conclusions and recommendations made at the facility where the study was performed based upon the imaging and clinical condition at that time. Comparison with the prior report and clinical history is necessary. The provided images may or may not represent the [place] source data set and thus may contain changes that may lower the accuracy of this second-opinion interpretation. Electronically signed by: Boogie Smith MD, PHD us Mauro iKdd MD IMG CT PROCEDURES Amanda l Result * POCT lipid panel (08/02/2023 10:29 AM CDT) Cholesterol, POC <100 mg/dL Comment:GLU = 133 HDL, POC <15 mg/dL Triglycerides, POC 70 mg/dL LDL Cholesterol POC 71 mg/dL Chol/HDL Ratio, POC N/A Non-HDL Cholesterol, POC N/A mg/dL Cholesterol Total, POC <100 mg/dL Capillary blood 08/02/2023 1 0:29 AM CDT us Rosales Watt MD POINT OF CARE TEST ORDER CHANEL Final Result * eGFR (06/16/2022 10:03 AM BRICK AND TILE MAKING MACHINE OPERATOR) eGFR 67 mL/min/1. 73 m2 RYAN LUX Comment: Interpretive Data Reference Interval Normal ?>/= 90 mL/min/1.73m2 Mildly decreased* ? 60 - 89 mL/min/1.73m2 Mildly to moderately decreased ?45 - 59 mL/min/1.73m2 Moderately to severely decreased ??30 - 44 mL/min/1.73m2 Severely decreased ?15 - 29 mL/min/1.73m2 Kidney Failure ?< 15 ??mL/min/1.73m2 *Relative to young adult level Estimated glomerular filtration rate is determined by the 2020 CKD-EPI equation recommended by the National Kidney Foundation (A Unifying Approach to GFR Estimation: Recommendations of the NKF-ASK Task Force on Reassessing the Inclusion of Race in Diagnosing Kidney Disease, JASN 2020). The CKD-EPI equation should not be used for patients with unstable renal function and has not been validated in children and those over 70. Current interpretive data was last reviewed 2021. Blood 06/16/2022 10:0 3 AM BRICK AND TILE MAKING MACHINE OPERATOR 06/16/2022 10:03 AM BRICK AND TILE MAKING MACHINE OPERATOR Nicolás Arevalo MD LAB BLOOD ORDERABLES Final Res ult Performing Organization Address [facility] Phone Number [facility] [address] [address] [facility] [place] [address] * Hemoglobin A1c (05/30/2022 12:59 PM BRICK AND TILE MAKING MACHINE OPERATOR) Hgb A1C 5.5 4.0 - 5.6 % RYAN Estimated Average Glucose 111 mg/dL RYAN Comment: The ADA recommends reporting an estimated Average Glucose (eAG) with all Hemoglobin A1c results using the equation derived from a study of 507 normal and diabetic adults. ??Minority populations were underrepresented and children were not included. ?? (Diabetes Care 31:6332-6268, 2008). ??The eAG is not equivalent to a fasting glucose. Blood 05/30/2022 12:5 9 PM BRICK AND TILE MAKING MACHINE OPERATOR 05/30/2022 1:03 PM BRICK AND TILE MAKING MACHINE OPERATOR Nicolás Arevalo MD LAB BLOOD ORDERABLES Final Res ult Performing Organization Address [facility] Phone Number [facility] [address] [address] [facility] [place] [address] from Last 3 Months or Most Recently Relevant to Health Maintenance Insurance MEDICARE [facility] MEDICARE [place] [address] [place] [id number] MEDICARE [facility] [place] [address] [place] [id number] MEDICARE [facility] MEDICARE SUPPLEMENT Advance Directives For more information, please contact: [phone] * Full Code (Latest Code Status on File) Date Activated Date Inactivated Comments 06/05/2022 2:49 PM 06/16/2022 5:28 PM Care Teams Agriculture Sales Account Manager Relationship Specialty Start Date End Date Leticia Handley MD [address], [place] [id number] PCP - General Internal Medicine 05/08/23
--- OUTSIDE RECORDS SUMMARY | 2024-06-11 06:50 | XMS_ITS | Patient Health Summary ---
Author Organization [facility] Address [address] [place] [address] Care Team Providers Care Plate Hanger Name Role Phone Leticia Handley MD Primary Care Provider [phone] Nilesh Mojica DO Unavailable [phone] Enoc Sheridan PAMonieC Unavailable [phone] [facility],non-owned Affiliates and Associated Physician Practices is amultiple site organization consisting of ambulatory clinics and hospital sitesin [place]. This disclosure is being madepursuant to the Care Everywhere program and may not contain all information available regarding this patient. Last updated 18.[facility] Allergies No known active allergies Medications * Be aware that medications may not be up to date on this document. Alwaysverify current medications with the patient. * clopidogrel (PLAVIX) 75 MG tablet Take 75 mg by mouth once daily * carvedilol (COREG) 6.25 MG tablet Take 6.25 mg by mouth 2 times daily with morning and evening meal * atorvastatin (LIPITOR) 20 MG tablet Take 20 mg by mouth at bedtime * terazosin (HYTRIN) 10 MG capsule Take 10 mg by mouth at bedtime * finasteride (PROSCAR) 5 MG tablet Take 5 mg by mouth once daily * Multiple Vitamins-Minerals (MULTIVITAL PO) Take 1 tablet by mouth once daily * aspirin (ASPIRIN) 81 MG tablet Take 81 mg by mouth once daily * metoprolol tartrate (LOPRESSOR) 25 MG tablet(Started 03/07/2018) * latanoprost (XALATAN) 0.005 % ophthalmic solution(Started 03/11/2018) * furosemide (Lasix) 40 MG tablet(Started 12/29/2022) Take 1 (one) tablet by mouth once daily * levothyroxine (Synthroid) 75 MCG tablet(Started 02/25/2023) Take 1 (one) tablet by mouth once daily * carbidopa-levodopa (Sinemet) 25-250 MG tablet(Started 02/26/2023) Take 1 (one) tablet by mouth * pramipexole (Mirapex) 1 MG tablet(Started 05/25/2022) Take 3 (three) tablets by mouth 3 times daily * Xarelto 20 MG tablet(Started 02/07/2023) Take 1 (one) tablet by mouth daily with dinner * pantoprazole EC (Protonix) 40 MG tablet(Started 11/02/2022) Take 1 (one) tablet by mouth once daily 11 refills remaining * potassium chloride ER (Klor-Con M20) 20 MEQ tablet(Started 02/04/2023) Take 2 (two) tablets by mouth once daily * midodrine (Proamatine) 5 MG tablet(Started 07/17/2022) Take 1 (one) tablet by mouth * bimatoprost (Lumigan) 0.03 % ophthalmic solution 1 (one) drop at bedtime * brimonidine (Alphagan) 0.2 % ophthalmic solution 1 (one) drop 3 times daily * timolol maleate (Timoptic) 0.5 % ophthalmic solution 1 (one) drop 2 times daily Active Problems Problem Noted Date Diagnosed Date H/O total ankle replacement, 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 Social History Tobacco Use Types Packs/Day Years Used Date Smoking Tobacco: Never Smokeless Tobacco: Never Alcohol Use Standard Drinks/Week Comments Yes 0 (1 standard drink = 0.6 oz pur e alcohol) social 2x/mo PHQ-2 Answer Date Recorded Patient Health Questionnaire-2 Score 1 03/12/2023 Sex and Gender Information Value Date Recorded Sex Assigned at Not on file Gender Identity Not on file Sexual Orientation Not on file Last Filed Vital Signs Vital Sign Reading Time Taken Comments Blood Pressure 116/57 03/09/2017 11:06 AM CDT Pulse 68 03/09/2017 11:06 AM CDT Temperature 36.6 ??C (97.9 ??F) 03/09/2017 11:06 AM C DT Respiratory Rate 18 03/09/2017 11:06 AM CDT Oxygen Saturation 96% 03/09/2017 11:23 AM CDT Inhaled Oxygen Concentration - - Weight 86.6 kg (191 lb) 03/08/2017 7:04 AM CDT Height 167.6 cm (5' 6 ) 01/16/2017 2:41 PM CDT Body Mass Index 30.83 01/16/2017 2:41 PM CDT Medical Devices Implanted Type Area Lobster Man Device Identifier Shelf Expiration Date Model / Serial / Lot Stem Tlr Inbone Ii 1 Lg 10mm Ankl Implanted:Qty : 1 on 03/08/2017 by Nilesh Mojica DO at [facility] Left: Ankle Practice Fusion 12/07/2023 [id number] / / [id number] 4 Long Tibial Tray Implanted:Qty : 1 on 03/08/2017 by Nilesh Mojica DO at [facility] Left: Ankle Practice Fusion 01/09/2025 [id number] / / [id number] Cmpnt Tlr Inbone 3 Dome Ankl Sulcus Implanted:Qty : 1 on 03/08/2017 by Nilesh Mojica DO at [facility] Left: Ankle Practice Fusion 12/09/2024 [id number] / / [id number] Infinity Poly Insert Implanted:Qty : 1 on 03/08/2017 by Nilesh Mojica DO at [facility] Left: Ankle Practice Fusion 10/22/2024 [id number] / / [id number] Screw Qckfix Kyler Canc 4.0 X 46 Implanted:Qty : 1 on 03/08/2017 by Nilesh Mojica DO at [facility] Left: Ankle Arthrex Inc [id number] / / Plate 61mm 3 Hl Hk Lck Ss Ft/Ankl Mdl Implanted:Qty : 1 on 03/08/2017 by Nilesh Mojica DO at [facility] Left: Ankle Arthrex Inc [id number]-[id number] / / Screw 3.5mm 38mm T15 Hexalobe Ft Ankl Implanted:Qty : 1 on 03/08/2017 by Nilesh Mojica DO at [facility] Left: Ankle Arthrex Inc [id number] / / Graft Bone Othblst Ii Db Canc 1cc [facility] - [id number] Implanted:Qty : 1 on 03/08/2017 by Nilesh Mojica DO at [facility] Left: Ankle Integra [employer]iences 01/01/2019 / [id number] / [id number] Explanted Type Area Lobster Man Device Identifier Shelf Expiration Date Model / Serial / Lot Jonathan Total Ank Replacement Explanted:Qty: 1 on 03/08/[address] [facility] Left: Ankle KSKT Inc TOTAL ANKLE REPL MORE / / Screw Qckfix Kyler Canc 4.0 X 46 Explanted:Qty: 1 on 03/08/2017 by Nilesh Mojica DO at [facility] Left: Ankle Arthrex Inc [id number] PTS / / Procedures * XR ANKLE LEFT 3VW OR MORE(Performed 03/10/2024) Performed for H/O total ankle replacement, left * XR ANKLE LEFT 3VW OR MORE(Performed 03/12/2023) Performed for H/O total ankle replacement, left * XR ANKLE LEFT 3VW OR MORE(Performed 03/15/2020) Performed for H/O total ankle replacement, left * XR ANKLE LEFT 3VW OR MORE(Performed 03/17/2019) Performed for H/O total ankle replacement, left * XR ANKLE LEFT 3VW OR MORE(Performed 03/18/2018) Performed for H/O total ankle replacement, left * XR ANKLE LEFT 3VW OR MORE(Performed 10/08/2017) Performed for H/O total ankle replacement, left * XR ANKLE LEFT 3VW OR MORE(Performed 07/02/2017) Performed for H/O total ankle replacement, left * XR ANKLE LEFT 3VW OR MORE(Performed 05/28/2017) Performed for H/O total ankle replacement, left * XR ANKLE LEFT 3VW OR MORE(Performed 05/10/2017) Performed for H/O total ankle replacement, left * XR ANKLE LEFT 3VW OR MORE(Performed 04/23/2017) Performed for H/O total ankle replacement, left * XR ANKLE LEFT 3VW OR MORE(Performed 03/26/2017) Performed for H/O total ankle replacement, left * IMAGING/RADIOLOGY/XRAY RESULTS ORDER(Performed 03/12/2017) * CARDIAC STRESS TEST ORDER(Performed 03/12/2017) * CARDIAC ECHOCARDIOGRAM COMPLETE ORDER(Performed 03/12/2017) * CARDIAC PROCEDURE ORDER(Performed 03/12/2017) * CARDIAC EKG ORDER(Performed 03/12/2017) * HOME CPAP/BIPAP FOR HOSP USE: NOCTURNAL 02(Performed 03/08/2017) * XR ANKLE LEFT 3VW OR MORE(Performed 03/08/2017) Performed for Arthritis of ankle, left * REDUCTION OPEN INTERNAL FIXATION MEDIAL MALLEOLUS FRACTURE(Performed 03/08/2017) Performed for Arthritis of ankle, left * ARTHROPLASTY TOTAL ANKLE(Performed 03/08/2017) Performed for Arthritis of ankle, left * PERIPHERAL BLOCK(Performed 03/08/2017) * PERIPHERAL BLOCK(Performed 03/08/2017) * BASIC METABOLIC PANEL (CALCIUM TOTAL)(Performed 02/26/2017) Performed for Preop examination * CBC W AUTO DIFFERENTIAL(Performed 02/26/2017) Performed for Preop examination * URINE MICROSCOPIC ONLY(Performed 02/26/2017) Performed for Preop examination * URINALYSIS REFLEX TO MICROSCOPIC NO CULTURE(Performed 02/26/2017) Performed for Preop examination * CULTURE MSSA/MRSA(Performed 02/26/2017) Performed for Preop examination * CT LOWER EXT LEFT WO CONTRAST(Performed 12/06/2016) Performed for Arthritis of left ankle * XR ANKLE LEFT 3VW OR MORE(Performed 12/06/2016) Performed for Arthritis of left ankle * IMAGING/RADIOLOGY/XRAY RESULTS ORDER(Performed 11/09/2016) Results * XR Ankle Left 3Vw or More (03/10/2024 12:34 PM PLATE FURNACE OPERATOR) Only the most recent of13 resultswithin the time period is included. Narrative [facility] - 03/10/2024 12:34 PM PLATE FURNACE OPERATOR Please see progress note in Epic for results. Nilesh Mojica DO DIAGNOSTIC IMAGING O RDERABLES [facility] * IMAGING/RADIOLOGY/XRAY RESULTS ORDER (03/12/2017 8:08 PM PLATE FURNACE OPERATOR) Only the most recent of2 resultswithin the time period is included. Anatomical Region Laterality Modality Other Narrative 03/12/2017 8:08 PM PLATE FURNACE OPERATOR Ordered by an unspecified provider. Scanned Document IMAGING * CARDIAC STRESS TEST ORDER (03/12/2017 8:08 PM PLATE FURNACE OPERATOR) Narrative 03/12/2017 8:08 PM PLATE FURNACE OPERATOR Ordered by an unspecified provider. Scanned Document CARDIAC SERVICES ORD ERABLES * CARDIAC ECHOCARDIOGRAM COMPLETE ORDER (03/12/2017 8:08 PM PLATE FURNACE OPERATOR) Narrative 03/12/2017 8:08 PM PLATE FURNACE OPERATOR Ordered by an unspecified provider. Scanned Document ECHO ORDERABLES * CARDIAC PROCEDURE ORDER (03/12/2017 8:08 PM PLATE FURNACE OPERATOR) Narrative 03/12/2017 8:08 PM PLATE FURNACE OPERATOR Ordered by an unspecified provider. Scanned Document CARDIAC SERVICES ORD ERABLES * CARDIAC EKG ORDER (03/12/2017 8:06 PM PLATE FURNACE OPERATOR) Narrative 03/12/2017 8:06 PM PLATE FURNACE OPERATOR Ordered by an unspecified provider. Scanned Document CARDIAC SERVICES ORD ERABLES * CBC W AUTO DIFFERENTIAL (02/26/2017 11:14 AM CDT) WBC 6.5 4.4 - 10.7 x10E9/L 02/26/2017 11:20 AM CDT [facility] WBC Corrected x10E9/L 02/26/2017 11:20 AM CDT [facility] RBC 4.43 3.80 - 5.40 x10E12/L 02/26/2017 11:20 AM CDT [facility] Hemoglobin 14.5 12.0 - 17.6 gm/dL 02/26/2017 11:20 AM CDT [facility] Hematocrit 41.7 35.2 - 51.7 % 02/26/2017 11:20 AM CDT [facility] MCV 94.1 80.7 - 98.3 fl 02/26/2017 11:20 AM CDT [facility] MCH 32.7 26.7 - 34.0 pg 02/26/2017 11:20 AM CDT [facility] MCHC 34.8 30.8 - 35.9 gm/dL 02/26/2017 11:20 AM CDT [facility] Platelet Count 164 153 - 416 x10E9/L 02/26/2017 11:20 AM CDT [facility] RDW-CV 12.2 12.1 - 14.9 % 02/26/2017 11:20 AM CDT [facility] MPV 9.6 9.4 - 12.9 fl 02/26/2017 11:20 AM CDT [facility] Neutrophils % 58.8 44.0 - 73.0 % 02/26/2017 11:20 AM CDT [facility] Lymphocytes % 28.4 20.0 - 43.0 % 02/26/2017 11:20 AM CDT [facility] Monocytes % 8.6 5.0 - 13.0 % 02/26/2017 11:20 AM CDT [facility] Eosinophils % 2.9 0.0 - 6.0 % 02/26/2017 11:20 AM CDT [facility] Basophils % 1.1 0.0 - 2.0 % 02/26/2017 11:20 AM CDT [facility] Immature Granulocytes 0.2 0 - 1 % 02/26/2017 11:20 AM CDT [facility] Neutrophil Absolute 3.82 2.01 - 7.14 x10E9/L 02/26/2017 11:20 AM CDT [facility] Lymphocytes Absolute 1.84 1.07 - 3.94 x10E9/L 02/26/2017 11:20 AM CDT [facility] Monocytes Absolute 0.56 0.26 - 1.07 x10E9/L 02/26/2017 11:20 AM CDT [facility] Eosinophils Absolute 0.19 0 - 0.47 x10E9/L 02/26/2017 11:20 AM CDT [facility] Basophils Absolute 0.07 0 - 0.08 x10E9/L 02/26/2017 11:20 AM CDT [facility] Immature Granulocytes Absolute 0.01 0.00 - 0.06 x10E9/L 02/26/2017 11:20 AM CDT [facility] nRBC Auto 0 /100 WBC 02/26/2017 11:20 AM [facility] Blood BLOOD SPECIMEN / Unknown Lab Venipuncture / Unknown 02/26/2017 11:14 AM CDT 02/26/2017 11:18 AM CDT Tristan Montiel MD LAB - HEMATOLOGY ORD ERABLES [facility] [address] [place] [address] * (ABNORMAL) BASIC METABOLIC PANEL (CALCIUM TOTAL) (02/26/2017 11:14 AM CDT) Glucose 89 74 - 106 mg/dL 02/26/2017 11:32 AM [facility] Sodium 144 136 - 145 mmol/L 02/26/2017 11:32 AM [facility] Potassium 3.9 3.5 - 5.1 mmol/L 02/26/2017 11:32 AM [facility] Chloride 109(H) 98 - 107 mmol/L 02/26/2017 11:32 AM [facility] CO2 28 22 - 31 mmol/L 02/26/2017 11:32 AM [facility] Calcium 8.5 8.5 - 10.1 mg/dL 02/26/2017 11:32 AM [facility] Anion Gap 7(L) 8 - 16 mmol/L 02/26/2017 11:32 AM [facility] BUN 15 7 - 21 mg/dL 02/26/2017 11:32 AM [facility] Creatinine 0.88 0.50 - 1.30 mg/dL 02/26/2017 11:32 AM [facility] eGFR by MDRD >60 mL/min/1.7 3m2 02/26/2017 11:32 AM [facility] eGFR by MDRD >60 mL/min/1.7 3m2 02/26/2017 11:32 AM [facility] Blood BLOOD SPECIMEN / Unknown Lab Venipuncture / Unknown 02/26/2017 11:14 AM CDT 02/26/2017 11:18 AM CDT Tristan Montiel MD LAB - CHEMISTRY TIFFANIE GRAMAJO [facility] [address] [place] [address] * CULTURE MSSA/MRSA (02/26/2017 10:59 AM CDT) Culture Negative for Staphylococcus aureus (MRSA/MSSA) LOVE 02/28/2017 6:21 AM CDT [facility] Microbiology SPECIMEN FROM NASAL FOSSAE / Unknown Collection / Unknown 02/26/2017 10:59 AM CDT 02/26/2017 11:11 AM CDT Nilesh Mojica DO LAB - MICROBIOLOGY O RDERAMITESH [facility] [address] [place] [phone] * (ABNORMAL) URINALYSIS ROUTINE AUTO (02/26/2017 10:59 AM CDT) Color UA Yellow Straw, Yellow, Dark Yellow 02/26/2017 11:21 AM [facility] Clarity UA Clear 02/26/2017 11:21 AM T [facility] Specific [place] UA 1.015 1.005 - 1.030 02/26/2017 11:21 AM [facility] pH UA 6.5 5.0 - 8.0 pH 02/26/2017 11:21 AM [facility] Protein UA Negative Negative 02/26/2017 11:21 AM T [facility] Blood UA Negative Negative 02/26/2017 11:21 AM [facility] Leukocyte UA 1+(A) Negative 02/26/2017 11:21 AM T [facility] Nitrite UA Negative Negative 02/26/2017 11:21 AM T [facility] Glucose UA Negative Negative 02/26/2017 11:21 AM [facility] Ketone UA Trace(A) Negative 02/26/2017 11:21 AM [facility] Bilirubin UA Negative Negative 02/26/2017 11:21 AM [facility] Urobilinogen UA 0.2 0.1 - 1.0 EU/dL 02/26/2017 11:21 AM CDT [facility] Urine URINE SPECIMEN OBTAINED BY CLEAN CATCH PROCEDURE / Unknown Collection / Unknown 02/26/2017 10:59 AM CDT 02/26/2017 11:10 AM CDT Nilesh Mojica DO LAB - URINALYSIS ORD ERABLES Performing Organization Address [facility] Co de Phone Number [address] [address] * URINALYSIS MICROSCOPIC ONLY (02/26/2017 10:59 AM CDT) WBC UA 2-5 0-2, 2-5 # /hpf 02/26/2017 11:36 AM CDT [facility] Epithelial Cell UA 0-2 0-2, 2-5 # /hpf 02/26/2017 11:36 AM CDT [facility] Urine URINE SPECIMEN OBTAINED BY CLEAN CATCH PROCEDURE / Unknown Collection / Unknown 02/26/2017 10:59 AM CDT 02/26/2017 11:10 AM CDT Nilesh Mojica DO LAB - URINALYSIS ORD HOBARTBLES Performing Organization Address 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 There are old healed fracture deformities of the distal tibia and fibula. Narrative 12/07/2016 9:[address] of left ankle with sagittal and coronal reformats HISTORY: Total ankle protocol FINDINGS: There are old healed fracture deformities of the distal tibia and fibula. There is severe narrowing at the tibiotalar joint. Marginal osteophytes and subchondral cysts are seen around the tibiotalar joint. Procedure Note Mark Hamilton MD - 12/07/2016 CT of left ankle with sagittal and coronal reformats HISTORY: Total ankle protocol FINDINGS: There are old healed fracture deformities of the distal tibia and fibula. There is severe narrowing at the tibiotalar joint. Marginal osteophytes and subchondral cysts are seen around the tibiotalar joint. 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 There are old healed fracture deformities of the distal tibia and fibula. Nilesh Mojica DO CT ORDERABLES Care Teams Plate Hanger Relationship Specialty Start Date End Date Leticia Handley MD PCP - General Internal Medicine 12/06/16 Nilesh Mojica DO Orthopedic Surgery 12/06/16 Enoc Sheridan PA-C [address] [place] [address] Physician Oracle Erp Architect Physician Oracle Erp Architect 03/13/17
--- OUTSIDE RECORDS SUMMARY | 2024-06-11 06:50 | XMS_ITS | Encounter Summary ---
Author Organization [facility] Healthcare Address [address] [place] [address] Care Team Providers Care Assembler Clip On Sunglasses Name Role Phone Leticia Handley MD Primary Care Provider [phone] Encounter Details Date Type Department Care Team (Late st Contact Info) Description 05/19/2024 Telephone [facility] Medical [facility] Cardiology [address] [place] [address] Freeman Chavira MD [facility] [address] Social History Tobacco Use Types Packs/Day Years [...] relatives? Three times a week 06/06/2022 Attends [employer] Not on file 06/06 Active Member [...] place to sleep or slept in a long term (including now)? No 06/06/2022 Personal Safety Answer Date Recorded Getting School Help Needed Denies 05/05 Sex and Gender Information Value Date Recorded Sex Assigned at Not on file Legal Sex Male 12:29 AM REGISTERED NURSE HH CASE MANAGER Gender Identity Not on file Sexual Orientation Not on file documented as of this encounter Miscellaneous Notes * Telephone Encounter - Yamila Gillespie MA - 05/19/2024 2:40 PM CST WE ARE OUT OF SAMPLES AT THIS TIME CHECK BACK NEXT WEEK STERED NURSE HH CASE MANAGER * Telephone Encounter - Kera Pelaez - 05/19/2024 2:26 PM CST Pt requesting samples of rivaroxaban (XARELTO) 20 mg tablet. Contact:[phone] STERED NURSE HH CASE MANAGER documented in this encounter Plan of Treatment Not on file documented as of this encounter Visit Diagnoses Not on filedocumented in this encounter Care Teams Assembler Clip On Sunglasses Relationship Specialty Start Date End Date Leticia Handley MD [address] [place] [address] PCP - General Internal Medicine 05/08/23 documented as of this encounter
--- OUTSIDE RECORDS SUMMARY | 2024-06-11 06:50 | XMS_ITS | Referral Summary ---
Author Organization [facility] Address [address] [place] [address] Care Team Providers Care Placement Specialist Name Role Phone Leticia Handley MD Primary Care Provider [phone] Nilesh Mojica DO Unavailable [phone] Enoc Sheridan PA-C Unavailable [phone] Source Comments [facility],non-owned Affiliates and Associated Physician Practices is amultiple site organization consisting of ambulatory clinics and hospital sitesin [place], [place], [place] and [place]. This disclosure is being madepursuant to the Care Everywhere program and may not contain all information available regarding this patient. Last updated 18.[facility] [employer] Allergies No known active allergies Medications * Be aware that medications may not be up to date on this document. Alwaysverify current medications with the patient. Medication Sig Dispensed Refills Start Date End Date Status clopidogrel (PLAVIX) 75 MG tablet Take 75 mg by mouth once daily Active carvedilol (COREG) 6.25 MG tablet Take 6.25 mg by mouth 2 times daily with morning and evening meal Active atorvastatin (LIPITOR) 20 MG tablet Take 20 mg by mouth at bedtime Active terazosin (HYTRIN) 10 MG capsule Take 10 mg by mouth at bedtime Active finasteride (PROSCAR) 5 MG tablet Take 5 mg by mouth once daily Active Multiple Vitamins-Minerals (MULTIVITAL PO) Take 1 tablet by mouth once daily Active aspirin (ASPIRIN) 81 MG tabletIndications:H/O total ankle replacement, left Take 81 mg by mouth once daily Active metoprolol tartrate (LOPRESSOR) 25 MG tablet 03/07/2018 Active latanoprost (XALATAN) 0.005 % ophthalmic solution 03/11/2018 Active furosemide (Lasix) 40 MG tablet Take 1 (one) tablet by mouth once daily 12/29/2022 Active levothyroxine (Synthroid) 75 MCG tablet Take 1 (one) tablet by mouth once daily 02/25/2023 Active carbidopa-levodopa (Sinemet) 25-250 MG tablet Take 1 (one) tablet by mouth 02/26/2023 Active pramipexole (Mirapex) 1 MG tablet Take 3 (three) tablets by mouth 3 times daily 05/25/2022 Active Xarelto 20 MG tablet Take 1 (one) tablet by mouth daily with dinner 02/07/2023 Active pantoprazole EC (Protonix) 40 MG tablet Take 1 (one) tablet by mouth once daily 30 tablet 11 11/02/2022 Active potassium chloride ER (Klor-Con M20) 20 MEQ tablet Take 2 (two) tablets by mouth once daily 02/04/2023 Active midodrine (Proamatine) 5 MG tablet Take 1 (one) tablet by mouth 07/17/2022 Active bimatoprost (Lumigan) 0.03 % ophthalmic solution 1 (one) drop at bedtime Active brimonidine (Alphagan) 0.2 % ophthalmic solution 1 (one) drop 3 times daily Active timolol maleate (Timoptic) 0.5 % ophthalmic solution 1 (one) drop 2 times daily Active Active Problems Problem Noted Date Diagnosed [...] Mass Index 30.83 01/16/2017 2:41 PM CDT Functional Status Functional Status Response Date of Assess ment Is person deaf or have serious hearing difficult y? No 03/08/2017 Is person blind or have serious difficulty seein g? No 03/08/2017 Does person have serious dif ficulty walking/climbing stairs? No 03/08/2017 Does person have difficulty dressing/bathing? No 03/08/2017 Does person have difficulty doing errands alone? No 03/08/2017 Cognitive Status Response Date of Assessm ent Does person have difficulty concentrating/remembering/making decisions? No 03/08/2017 Plan of Treatment Upcoming Encounters Date Type Department Care Team (Late st Contact Info) Description 03/09/2025 10:40 AM PHYSICAL GEOGRAPHER Office Visit [facility] Orthopedics [address] [place] [address] Nilesh Mojica DO [address] [place] [phone] Medical Devices Implanted Type Area Golf Teacher Device Identifier Shelf Expiration Date Model / Serial / Lot Stem Tlr Inbone Ii 1 Lg 10mm Ankl Implanted:Qty : 1 on 03/08/2017 by Nilesh Mojica DO at [facility][note 3] Left: Ankle [employer] 12/07/2023 [id number] / / [id number] Long Tibial Tray Implanted:Qty : 1 on 03/08/2017 by Nilesh Mojica DO at [facility][note 3] Left: Ankle [employer] 01/09/2025 [id number] / / [id number] Cmpnt Tlr Inbone 3 Dome Ankl Sulcus Implanted:Qty : 1 on 03/08/2017 by Nilesh Mojica DO at [facility][note 3] Left: Ankle [employer] 12/09/2024 [id number] / / [id number] Infinity Poly Insert Implanted:Qty : 1 on 03/08/2017 by Nilesh Mojica DO at [facility][note 3] Left: Ankle [employer] 10/22/2024 [id number] / / [id number] Screw Qckfix Kyler Canc 4.0 X 46 Implanted:Qty : 1 on 03/08/2017 by Nilesh Mojica DO at [facility][note 3] Left: Ankle Arthrex Inc [id number] / / Plate 61mm 3 Hl Hk Lck Ss Ft/Ankl Mdl Implanted:Qty : 1 on 03/08/2017 by Nilesh Mojica DO at [facility][note 3] Left: Ankle Ar[employer] Inc AR-8943H-03 / / Screw 3.5mm 38mm T15 Hexalobe Ft Ankl Implanted:Qty : 1 on 03/08/2017 by Nilesh Mojica DO at [facility][note 3] Left: Ankle Ar[employer] Inc AR-8835-38 / / Graft Bone Othblst Ii Dbm Canc 1cc Algrf - [id number] Implanted:Qty : 1 on 03/08/2017 by Nilesh Mojica DO at [facility][note 3] Left: Ankle Integra [employer]sciences 01/01/2019 02-010 / [id number] / [id number] Explanted Type Area Golf Teacher Device Identifier Shelf Expiration Date Model / Serial / Lot Jonathan Total Ank Replacement Explanted:Qty: 1 on 03/08/2017 at [facility][note 3] Left: Ankle [employer] TOTAL ANKLE REPL MORE / / Screw Qckfix Kyler Canc 4.0 X 46 Explanted:Qty: 1 on 03/08/2017 by Nilesh Mojica DO at [facility][note 3] Left: Ankle Arthrex Inc [id number] PTS / / Advance Directives Documents on File Type Date Recorded 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
--- OUTSIDE RECORDS SUMMARY | 2024-06-11 06:50 | XMS_ITS | Referral Summary ---
Author Organization [facility] [address] [facility] [facility] [address] Address [address] [place] [address] Care Team Providers Care Metal Fitter Name Role Phone Leticia Handley MD Primary Care Provider Encounters Date Type Department Care Team Description 05/19/2024 Telephone [facility] Medical [facility] Cardiology [address] [place] [address] Freeman Chavira MD 04/10/2024 5:53 PM MACHINE WHITENER - 04/10/2024 11:59 PM MACHINE WHITENER Hospital Encounter [facility] [address] [place] [address] Diagnosis unknown Discharge Disposition: Discharge to home or self care 04/10/2024 2:00 PM MACHINE WHITENER Office Visit [facility] Surgery [address] [place] [address] [address], [place] [address] Mauro Kidd MD Umbilical hernia without obstruction and without gangrene (Primary Dx); Chronic cholecystitis; Left inguinal hernia 03/31/[address] 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 Movement Disorders [address] [place] [phone] Karrie Reynolds NP Parkinson's disease, unspecified whether dyskinesia present, unspecified whether manifestations fluctuate ([facility]) (Primary Dx); Mild cognitive impairment with memory loss from Last 3 Months Allergies No known active allergies Medications brimonidine-pan [...] 1 tablet (75 mcg total) by mouth professor of early childhood education before breakfast 30 tablet 1 3 Active [...] with bioprosthetic valve 07/17/2022 Postoperative atrial fibrillation (CMS/HCC) 07/05 Chronic heart failure with p reserved ejection fraction (HFpEF) ([facility]) 02/08/2021 Localized edema 12/15/2019 Parkinson's disease 06/09/2019 Assessment & Plan (03/12/2024 1:31 PM MACHINE WHITENER): 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 Three times a week 06/06/2022 Attends Jewish Services Not on file 06/06 Active Member [...] place to sleep or slept in a jail (including now)? No 06/06/2022 Personal Safety Answer Date Recorded Getting School Help Needed Denies 05/05 Sex and Gender Information Value Date Recorded Sex Assigned at Not on file Legal Sex Male 12:29 AM MACHINE WHITENER Gender Identity Not on file Sexual Orientation Not on file Last Filed Vital Signs Vital Sign Reading Time Taken Comments Blood Pressure 99/62 04/10/2024 2:18 PM MACHINE WHITENER Pulse 51 04/10/2024 2:18 PM MACHINE WHITENER Temperature 36.8 ??C (98.2 ??F) 04/10/2024 2:18 PM CS T Respiratory Rate 18 04/10/2024 2:18 PM MACHINE WHITENER Oxygen Saturation 97% 04/10/2024 2:18 PM MACHINE WHITENER Inhaled Oxygen Concentration - - Weight 84.4 kg (186 lb) 04/10/2024 2:18 PM MACHINE WHITENER Height 167.6 cm (5' 5.98 ) 04/10/2024 2:18 PM CS T Body Mass Index 30.04 04/10/2024 2:18 PM MACHINE WHITENER Plan of Treatment Not on file Medical Devices Implanted Type Area Facility Security Officer Device Identifier Shelf Expiration Date Model / Serial / Lot Ziggy Medical Plate Bone Low Profile 6 Hole H Shape Ti 115.102.06 - [id number] Implanted:Qty: 1 on 06/05/2022 by Nicolás Arevalo MD at [facility] Plate N/A: Sternum [employer] 115.102. 06 / / Ziggy Medical Plate Bone Low Profile 4 Hole Box Ti 115.103.04 - [id number] Implanted:Qty: 1 on 06/05/2022 by Nicolás Arevalo MD at [facility] Plate N/A: Sternum [employer] 115.103. 04 / / Ziggy Medical Plate Bone Low Profile 6 Hole O Concave Ti 115.604.06 - [id number] Implanted:Qty: 1 on 06/05/2022 by Nicolás Arevalo MD at [facility] Plate N/A: Sternum [employer] 115.604. 06 / / Bhatti Lifesciences Von-Tim ds Perimount Magna Ease 23mm Bioprosthesis [id number] - [id number] - [id number] Implanted:Qty: 1 on 06/05/2022 by Nicolás Arevalo MD at [facility] Prosthetic Valve N/A: Heart [employer] 07/18/2024 [id number] / [id number] / Ziggy Medical Screw Bone Slf Drl Full Thread Locking 3.5x14mm Ti 100.035.14 - [id number] Implanted:Qty: 10 on 06/05/2022 by Nicolás Arevalo MD at [facility] Screw N/A: Sternum [employer] 100.035. 14 / / Ziggy Medical Screw Bone Slf Drl Full Thread Locking 3.5x16mm Ti 100.035.16 - [id number] Implanted:Qty: 6 on 06/05/2022 by Nicolás Arevalo MD at [facility] Screw N/A: Sternum [employer] 100.035. 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 ??Distended gallbladder with wall thickening and [...] images may or may not represent the shoshone-bannock source data set and thus may contain changes that may lower the accuracy of this second-opinion interpretation. Electronically signed by: Boogie Smith MD, PHD Narrative 04/11/2024 12:40 PM MACHINE WHITENER EXAMINATION: RADIOLOGY CONSULTATION ON OUTSIDE IMAGING STUDY STUDY INITIALLY PERFORMED: 03/22/2024 at [facility]. TYPE OF STUDY: [...] IMAGING STUDY STUDY INITIALLY PERFORMED: 03/22/2024 at [facility]. TYPE OF STUDY: [...] images may or may not represent the shoshone-bannock source data set and thus may contain changes that may lower the accuracy of this second-opinion interpretation. Electronically signed by: Boogie Smith MD, PHD us Mauro Kidd MD IMG CT PROCEDURES Amanda l Result [...] Final Result * eGFR (06/16/2022 10:03 AM MACHINE WHITENER) eGFR 67 mL/min/1. 73 m2 RYAN LUX [...] reviewed 2021. Blood 06/16/2022 10:0 3 AM MACHINE WHITENER 06/16/2022 10:03 AM MACHINE WHITENER Nicolás Arevalo MD LAB BLOOD ORDERABLES Final Res ult Performing Organization Address [facility] de Phone Number RYAN [id number] [facility] [place] [address] * Hemoglobin A1c (05/30/2022 12:59 PM MACHINE WHITENER) Hgb A1C 5.5 4.0 - 5.6 % RYAN Estimated Average Glucose 111 mg/dL RYAN Comment: The ADA recommends reporting an estimated Average Glucose (eAG) with all Hemoglobin A1c results using the equation derived from a study of 507 normal and diabetic adults. ??Minority populations were underrepresented and children were not included. ?? (Diabetes Care 31:3265-1875, 2008). ??The eAG is not equivalent to a fasting glucose. Blood 05/30/2022 12:5 9 PM MACHINE WHITENER 05/30/2022 1:03 PM MACHINE WHITENER Nicolás Arevalo MD LAB BLOOD ORDERABLES Final Res ult Performing Organization Address [facility] de Phone Number RYAN [phone] [facility] [place] [address] from Last 3 Months or Most Recently Relevant to Health Maintenance Insurance MEDICARE [facility] MEDICARE SUPPLEMENT INSURANCE MEDICARE [place] MEDICARE SUPPLEMENT MEDICARE [place] MEDICARE SUPPLEMENT Advance Directives For more information, please contact: [phone] * Full Code (Latest Code Status on File) Date Activated Date Inactivated Comments 06/05/2022 2:49 PM 06/16/2022 5:28 PM Care Teams Metal Fitter Relationship Specialty Start Date End Date Leticia Handley MD [address] [place] [address] PCP - General Internal Medicine 05/08/23
--- OUTSIDE RECORDS SUMMARY | 2024-06-11 06:50 | XMS_ITS | Clinical Summary ---
Author Organization [facility] Address [address] [place] [address] Care Team Providers Care Direct Support Staff Member Name Role Phone Leticia Handley MD Primary Care Provider [phone] Nilesh Mojica DO Unavailable [phone] Enoc Sheridan PA-C Unavailable [phone] Source Comments [facility],non-owned Affiliates and Associated Physician Practices is amultiple site organization consisting of ambulatory clinics and hospital sitesin [place], [place], [place] and [place]. This disclosure is being madepursuant to the Care Everywhere program and may not contain all information available regarding this patient. Last updated 18.[facility] [employer] Allergies No known active allergies Medications * [...] Mass Index 30.83 01/16/2017 2:41 PM CDT Plan of Treatment Upcoming Encounters Date Type Department Care Team (Late st Contact Info) Description 03/09/2025 10:40 AM CATTLE ALLEY WORKER Office Visit [facility] Orthopedics [address] [facility], [address] [address] Nilesh Mojica DO [address] [address] Health Maintenance Due Date Last Done Comments MEDICARE AWV ? 12 MONTHS 1938 DTAP/TDAP/TD VACCINES (1 - Tdap) 1957 PNEUMOCOCCAL VACCINE 50+ (1 of 1 - PCV) 1988 ZOSTER VACCINE (1 of 2) 1988 Respiratory Syncytial Virus (RSV) Vaccine Pt: or over 60 yrs (1 - 1-dose 75+ series) 2013 COVID-19 VACCINE ( - 2023- season) 2024 INFLUENZA VACCINE (#1) 2024 8, 02/04/2007, 03/22/2006, Additional history exists DEPRESSION SCREENING 05/07/2024 03/12/2023 HEPATITIS B VACCINE Aged Out No longe r eligible based on patient's age to complete this topic HIB VACCINE Aged Out No longer eligi ble based on patient's age to complete this topic HPV VACCINE Aged Out No longer eligi ble based on patient's age to complete this topic MENINGOCOCCAL (Group B) VACCINE Aged Out No longer eligible based on patient's age to complete this topic MENINGOCOCCAL VACCINE Aged Out No rozina joyce eligible based on patient's age to complete this topic Medical Devices Implanted Type Area Brand Planner Device Identifier Shelf Expiration Date Model / Serial / Lot Stem Tlr Inbone Ii 1 Lg 10mm Ankl Implanted:Qty : 1 on 03/08/2017 by Nilesh Mojica DO at [facility] Left: Ankle [employer] 12/07/2023 [id number] / / [id number] 4 Long Tibial Tray Implanted:Qty : 1 on 03/08/2017 by Nilesh Mojica DO at [facility] Left: Ankle [employer] 01/09/2025 [id number] / / [id number] Cmpnt Tlr Inbone 3 Dome Ankl Sulcus Implanted:Qty : 1 on 03/08/2017 by Nilesh Mojica DO at [facility] Left: Ankle Disconnect 12/09/2024 [id number] / / [id number] Infinity Poly Insert Implanted:Qty : 1 on 03/08/2017 by Nilesh Mojica DO at [facility] Left: Ankle Disconnect 10/22/2024 [id number] / / [id number] Screw Qckfix Kyler Canc 4.0 X 46 Implanted:Qty : 1 on 03/08/2017 by Nilesh Mojica DO at [facility] Left: Ankle Ar[employer]rex [employer] [id number] / / Plate 61mm 3 Hl Hk Lck Ss Ft/Wanda Mdl Implanted:Qty : 1 on 03/08/2017 by Nilesh Mojica DO at [facility] Left: Ankle [employer] AR-8943H-03 / / Screw 3.5mm 38mm T15 Hexalobe Ft Ankl Implanted:Qty : 1 on 03/08/2017 by Nilesh Mojica DO at [facility] Left: Ankle [employer] AR-8835-38 / / Graft Bone Othblst Ii Dbm Canc 1cc Alg - [id number] Implanted:Qty : 1 on 03/08/2017 by Nilesh Mojica DO at [facility] Left: Ankle Integra [employer] 01/01/2019-010 / [id number] / [id number] Explanted Type Area Brand Planner Device Identifier Shelf Expiration Date Model / Serial / Lot Jonathan Total Ank Replacement Explanted:Qty: 1 on 03/08/[address] [facility] Left: Ankle [employer] TOTAL ANKLE REPL MORE / / Screw Qckfix Kyler Canc 4.0 X 46 Explanted:Qty: 1 on 03/08/2017 by Nilesh Mojica DO at [facility] Left: Ankle [employer] AR-8740-46 PTS / / Advance Directives Documents on File Type Date Recorded Patient Survey Methodologist Expl anation Adv Directive/Living Will/POA 03/12/2017 8:08 PM * Full Code (Latest Code Status on File) Date Activated Date Inactivated Comments 03/08/2017 12:28 PM 03/09/2017 4:41 PM Care Teams Direct Support Staff Member Relationship Specialty Start Date End Date Leticia Handley MD PCP - General Internal Medicine 12/06/16 Nilesh Mojica DO Orthopedic Surgery 12/06/16 Enoc Sheridan PA-C [address] [place] [address] [address] (work) Physician Director Service Physician Director Service 03/13/17
--- OUTSIDE RECORDS SUMMARY | 2024-06-11 06:50 | XMS_ITS | Encounter Summary ---
Author Organization [facility] Address [address] [place] [address] Care Team Providers Care Director Safety Name Role Phone Leticia Handley MD Primary Care Provider [phone] Karrie Mcgregor DO Primary Care Provide r Leticia Handley MD Primary Care Provider [phone] Encounter Details Date Type Department Care Team (Late st Contact Info) Description 08/15/2016 Orders Only [facility] ProviderNila MD [address] [place] [address] Social History Tobacco Use Types Packs/Day Years Used Date Smoking Tobacco: Never Alcohol Use Standard Drinks/Week Comments Yes 0 (1 standard drink = 0.6 oz pur e alcohol) Sex and Gender Information Value Date Recorded Sex Assigned at Not on file Legal Sex Male 12:29 AM INDUSTRIAL PSYCHOLOGIST Gender Identity Not on file Sexual Orientation Not on file documented as of this encounter Plan of Treatment Not on file documented as of this encounter Procedures Procedure Name Priority Date/Time Associated Diagnosis Comments CARDIOLOGY REPORT 08/15/2016 documented in this encounter Results * CARDIOLOGY REPORT (08/15/2016) Anatomical Region Laterality Modality Other Narrative 08/15/2016 Ordered by an unspecified provider. Historical Provider CV CARDIAC SERVICES PROCE DURES Final Result documented in this encounter Visit Diagnoses Not on filedocumented in this encounter Care Teams Director Safety Relationship Specialty Start Date End Date Leticia Handley MD [address] [place] [address] PCP - General 08/11/16 03/21/23 Karrie Mcgregor DO [address] [place] [address] PCP - General Psychiatry 03/22/23 05/07/23 Leticia Handley MD [address] [place] [address] PCP - General Internal Medicine 05/08/23 documented as of this encounter
--- OUTSIDE RECORDS SUMMARY | 2024-06-11 06:50 | XMS_ITS | Clinical Summary ---
Author Organization [facility] Address [address] [place] [address] Care Team Providers Care Boxer Operator Name Role Phone Leticia Handley MD Primary Care Provider [phone] Allergies No known active allergies Medications clopidogrel 75 MG tablet Take 75 mg by mouth daily. Active metoprolol tartrate 25 MG tablet Take by mouth 2 (two) times daily. Active atorvastatin 20 MG tablet Take 20 mg by mouth daily. Active Terazosin HCl 10 MG Cap Take 1 capsule by mouth nightly at bedtime. at bedtime. Active levothyroxine 75 MCG tablet Take 75 mcg by mouth every morning. Active SIMBRINZA 1-0.2 % ophthalmic suspension INSTILL 1 DROP INTO EACH EYE TWICE DAILY 5 03/01/2019 Active aspirin EC 81 MG tablet Take 81 mg by mouth daily. Active latanoprost 0.005 % ophthalmic solution INSTILL ONE DROP IN BOTH EYES AT BEDTIME 11 10/02/2018 Active furosemide 20 MG tablet Take 20 mg by mouth daily. Active LUMIGAN 0.01 % Solution APPLY 1 DROP LEFT EYE EVERY EVENING 06/03/2021 Active COMBIGAN 0.2-0.5 % ophthalmic solution Place 1 drop into both eyes 2 (two) times daily. 06/03/2021 Active cyclobenzaprine (FLEXERIL) 5 MG tablet Take 5 mg by mouth 3 (three) times daily as needed. 07/19/2021 Active carbidopa-levod opa (SINEMET) 25-250 MG tabletIndicatio ns:Parkinson's disease ([facility]) TAKE 1 TABLET BY MOUTH 4 TIMES DAILY 360 tablet 3 03/24/2022 Active pramipexole (MIRAPEX) 1 MG tabletIndicatio ns:Parkinson's disease ([facility]) Take 3 tablets (3 mg total) by mouth 3 (three) times daily. 810 tablet 3 05/25/2022 Active Active Problems Problem Noted Date Diagnosed Date H/O cardiomyopathy 02/12/2018 H/O total ankle replacement, 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 Presence of stent in coronary artery 02/19/2017 S/P coronary artery stent placement 11/29/2016 Overview (05/27/2019): Overview: S/P right coronary artery (RCA) stent placement Coronary artery disease of n ative artery of [place] heart with stable angina pectoris 08/14/2016 Overview (05/27/2019): Overview: Coronary artery disease involving [place] coronary artery of [place] heart with other form of angina pectoris Dyslipidemia associated with type 2 diabetes mellitus ([facility]) 11/15/2015 Overview (05/27/2019): Overview: DM type 2 with diabetic dyslipidemia Hypertensive heart disease w ith congestive heart failure ([facility]) 08/02/2015 Overview (05/27/2019): Overview: Hypertensive heart disease with diastolic heart failure YANET on CPAP 08/02/2015 Overview (05/27/2019): Overview: YANET on CPAP Benign hypertension 04/26/2015 Overview (05/27/2019): Overview: HTN (hypertension), benign Dyslipidemia 04/26/2015 Overview (05/27/2019): Overview: Mixed dyslipidemia Cardiomyopathy ([facility]) 04/26/2015 Overview (05/27/2019): Overview: Cardiomyopathy Myocardial infarction ([facility]) 04/26/20 15 Overview (05/27/2019): Overview: ST elevation (STEMI) myocardial infarction of inferior wall Unknown and unspecified causes of morbidity 04/07 Overview (05/27/2019): Overview: S/P coronary artery stent placement Fatigue 12/08/2014 Overview (05/27/2019): Overview: Chronic fatigue Overview: Fatigue Generalized ischemic myocardial dysfunction 07/07 Overview (05/27/2019): Overview: Ischemic cardiomyopathy Nonrheumatic aortic valve stenosis 05/11/2014 Overview (05/27/2019): Overview: Aortic stenosis Overview: Nonrheumatic aortic valve stenosis Family History Medical History Relation Comments No Known Problems Brother Stroke Father No Known Problems Maternal Aunt No Known Problems Maternal Grandfather No Known Problems Maternal Grandmother No Known Problems Maternal Uncle No Known Problems Mother No Known Problems Other No Known Problems Paternal Aunt No Known Problems Paternal Grandfather No Known Problems Paternal Grandmother No Known Problems Paternal Uncle No Known Problems Sister Relation Status Comments Brother Father Maternal Aunt Maternal Grandfather Maternal Grandmother Maternal Uncle Mother Other Paternal Aunt Paternal Grandfather Paternal Grandmother Paternal Uncle Sister Social History Tobacco Use Types Packs/Day Years Used Date Smoking Tobacco: Never Smokeless Tobacco: Never Tobacco Cessation:Counseling Given: No Comments:patient doesnt smoke Alcohol Use Standard Drinks/Week Comments Not Currently 0 (1 standard drink = 0.6 oz pur e alcohol) PHQ-2 Answer Date Recorded PHQ-2 Score - If the patient scores above 3, please move on to questions 3-9 0 12/16/2021 Sex and Gender Information Value Date Recorded Sex Assigned at Not on file Legal Sex Male 1:42 AM CDT Gender Identity Not on file Sexual Orientation Not on file Last Filed Vital Signs Vital Sign Reading Time Taken Comments Blood Pressure 145/65 12/16/2021 8:52 AM CDT Pulse 59 12/16/2021 8:52 AM CDT Temperature 36.3 ??C (97.4 ??F) 09/02/2020 8:59 AM CD T Respiratory Rate 18 07/13/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 Oxygen Saturation 96% 12/16/2021 8:52 AM CDT Inhaled Oxygen Concentration - - Weight 90.7 kg (200 lb) 12/16/2021 8:52 AM CDT Height 166.4 cm (5' 5.5 ) 12/16/2021 8:52 AM CDT Body Mass Index 32.78 12/16/2021 8:52 AM CDT Plan of Treatment Health Maintenance Due Date Last Done Comments ASCVD LDL 1940 ASCVD Statin 1940 Kidney Health Evaluation 1940 Lipid Panel 1940 Diabetes: Retinopathy Eye Exam 1956 DTaP, Tdap and Td Vaccines ( 1 - Tdap) 1957 Zoster Vaccines (1 of 2) 1988 Annual Medicare Wellness Visit 11/18/2003 RSV Immunization or 60+ Years (1 - 1-dose 75+ series) 2013 Pneumococcal Vaccine: 65+ Years (2 of 2 - PPSV23 or PCV20) 04/29/2015 03/04/2015 Hemoglobin A1C 11/27/2022 05/30/2022 COVID-19 Vaccine (3 - 2023-2 5 season) 2024 06/29/2020, 06/08/2020 Influenza Adult (#1) 2024 Meningococcal B Vaccine Aged Out No l onger eligible based on patient's age to complete this topic Meningococcal Vaccine Aged Out No rozina joyce eligible based on patient's age to complete this topic RSV Immunizations Under 20 Months Aged Out No longer eligible b ased on patient's age to complete this topic Insurance MEDICARE [employer] MEDIC[employer] Member Subscriber Plan / Payer (Ef fective 2022-Present) Name:Alli Eagle Relation to Subscriber:Self Name:Alli Eagle Payer ID:Not on file Group ID:Not on file Type:Indemnity Address: ATTN CLAIMS [place] [id number] [employer] Care Teams Boxer Operator Relationship Specialty Start Date End Date Leticia Handley MD [address] [place] [address] PCP - General INTERNAL MEDICINE 08/09/18
--- OUTSIDE RECORDS SUMMARY | 2024-06-11 06:50 | XMS_ITS | Encounter Summary ---
Author Organization [facility] Address [address] [facility] [place] [address] Care Team Providers Care Sec Reporting Consultant Name Role Phone Leticia Handley MD Primary Care Provider Nilesh Mojica DO Unavailable Enoc Sheridan PA-C Unavailable Encounter Details Date Type Department Care Team (Late st Contact Info) Description 12/06/2016 [facility] Outpatient Visit [facility] Orthopedics - Radiology [address] [place] [address] Nilesh Mojica [address] [address] Social History Tobacco Use Types Packs/Day Years Used Date Smoking Tobacco: Never Smokeless Tobacco: Never Sex and Gender Information Value Date Recorded Sex Assigned at Not on file Gender Identity Not on file Sexual Orientation Not on file documented as of this encounter Plan of Treatment Upcoming Encounters Date Type Department Care Team (Late st Contact Info) Description 03/09/2025 10:40 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
--- OUTSIDE RECORDS SUMMARY | 2024-06-11 06:50 | XMS_ITS | Encounter Summary ---
Author Organization [facility] Address [address] [place] [address] Care Team Providers Care Circuit Judge Name Role Phone Leticia Handley MD Primary Care Provider [phone] Karrie Mcgregor DO Primary Care Provide r Leticia Handley MD Primary Care Provider [phone] Encounter Details Date Type Department Care Team (Late st Contact Info) Description 04/22/2019 Telephone 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
[2024-06-11 07:11] LABS: Basophils Absolute Auto 0.06 K/mm3 (0.00-0.10); Basophils Percent Auto 0.8 % (0.0-1.0); Eosinophils Absolute Auto 0.36 K/mm3 (0.02-0.50); Eosinophils Percent Auto 4.8 % (1.0-6.0); Hematocrit 31.1 % (37.0-46.0); Hemoglobin 9.6 g/dL (12.4-15.3); Immature Granulocyte Absolute 0.02 K/mm3 (0.00-0.00); Immature Granulocyte Percent A 0.3 % (0.0-0.0); Lymphocytes Absolute Auto 1.34 K/mm3 (1.10-4.50); Mean Corpuscular HGB Conc 30.9 g/dL (32-36); Mean Corpuscular Hemoglobin 29.5 pg (27.0-31.0); Mean Corpuscular Volume 95.7 fL (78.0-102.0); Mean Platelet Volume 8.5 fl (8.7-11.0); Monocytes Percent Auto 8.1 % (2.0-11.0); Neutrophils Absolute Auto 5.06 K/mm3 (1.70-7.20); Platelet Count Result 191 K/mm3 (150-420); Red Blood Count 3.25 M/mm3 (4.70-6.10); Red Cell Distribution Width 13.9 % (11.6-14.4); White Blood Count 7.4 K/mm3 (4.8-10.8)
[2024-06-11 07:35] LABS: Hemoglobin A1C < 4.7 % (<5.7)
[2024-06-11 08:24] LABS: Alanine Aminotransferase 6 U/L (16-63); Alkaline Phosphatase 163 U/L (46-116); Anion Gap 8 mmol/L (4-12); Aspartate Amino Transferase 21 U/L (15-37); Bilirubin,Total 0.4 mg/dL (0.00-1.00); Blood Urea Nitrogen 19 mg/dL (7-18); Calcium 8.3 mg/dL (8.5-10.1); Carbon Dioxide 27 mmol/L (21-32); Chloride 106 mmol/L (98-108); Cholesterol 97 mg/dL (0-200); Estimated Glomerular Filt Rate > 60; Ferritin 57 ng/mL (26-388); Free T3 2.41 pg/mL (2.18-3.98); Free T4 Free Thyroxine 0.94 ng/dL (0.76-1.46); Glucose 101 mg/dL (70-99); HDL Direct 39 mg/dL (40-60); Iron 22 ug/dL (65-175); LDL Cholesterol Calculated 49 mg/dL (<130); Osmolality Calculated 294 mOsm/kg (285-295); Potassium 4.1 mmol/L (3.5-5.1); Sodium 141 mmol/L (136-145); Thyroid Stimulating Hormone 3.35 uIU/mL (0.36-3.74); Total Protein 6.2 g/dL (6.4-8.2); Triglycerides 43 mg/dL (0-150)
[2024-06-11 10:33] LABS: Add Urine Microscopic? NO; Appearance Urine Clear (Clear); Bilirubin Urine Negative (Negative); Blood Urine Negative (Negative); Color Urine Yellow (Yellow); Glucose Urine UA Negative (Negative); Ketones Urine Trace (Negative); Leukocyte Esterase Ur Negative LEU/UL (Negative); Nitrate Urine Negative (Negative); Protein Urine Negative (Negative); Specific Grav Ur 1.025 (1.010-1.020); Urobilinogen Urine 0.2 mg/dL (0.2-1.0); pH Urine 5.5 (5.0-8.0)
[2024-06-12 15:30] LABS: Creatine Kinase 65 U/L (39-308)
== END 2024-06-11 06:48 | disposition home or self-care (01) ==
LOC: CHSLAB 06:49
PROVIDERS: PCP Internal Medicine; Visit Provider Internal Medicine
DX: E78.2 Mixed hyperlipidemia (principal); N39.0 Urinary tract infection, site not specified; R73.01 Impaired fasting glucose; E03.4 Atrophy of thyroid (acquired); D50.9 Iron deficiency anemia, unspecified
CPT/HCPCS: 36415; 80053; 80061; 81003; 82550; 82728; 83036; 83540; 84439; 84443; 84481; 85025

== ENCOUNTER 2024-07-01 12:32 | Outpatient (CLI) | payer MEDICARE, SELFPAY ==
[2024-07-01] MEDS: IRON SUCROSE COMPLEX 300 MG in SODIUM CHLORIDE 0.9% IV 235 ML 125 MG IVPB (13:00)
[2024-07-01 13:11] VITALS: BP 142/81; PULSE 64; RESP 14; TEMP 36.4; O2SAT 97
[2024-07-01 13:12] VITALS: BMI 31.1
--- OUTSIDE RECORDS SUMMARY | 2024-07-01 14:13 | XMS_ITS ---
Author Organization [facility] Address [address] [place], [place] [id number] Care Team Providers Care Medical Affairs Specialist Name Role Phone Estela Handley Unavailable Unavailable CARLOS STEVE Unavailable [phone] REASON FOR VISIT *General care Encounters Encounter Location Date Provider Diagnosis [facility] [address] [place], [place] [id number] 01/31/2024 CARLOS STEVE Other hammer toe(s) (acquired), right foot M20.41 ; Tinea unguium B35.1 ; Other hammer toe(s) (acquired), left foot M20.42 ; Pain in right toe(s) M79.674 ; Pain in left toe(s) M79.675 ; Pain in right foot M79.671 ; Pain in left foot M79.672 ; 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[place] arteries of extremities, bilateral legs I70.203 and Acquired keratosis [keratoderma] palmaris et plantaris L85.1 Assessments Encounter Date Diagnosis (ICD Code) Assessment Notes Treatment Notes Treatment Clinical Notes Section Notes 01/31/2024 Other hammer toe(s) (acquired), right foot (ICD-10 - M20.41) The patient was educated regarding how to mechanically stabilize their deformity. The patient was given education about shoe recommendations specific for the condition. The patient was educated about custom orthotics and how appropriate shoes and orthotics can prevent further worsening of the deformity. The patient was educated about how bad shoe habits can worsen the condition. NSAIDS, P.T., injections and other conservative treatments were discussed. Both surgical and non surgical treatments were discussed, but conservative options were emphasized. 01/31/2024 Tinea unguium (ICD-10 - B35.1) Aseptic debridement of elongated thickened nails x 10 using sterile nippers, nails were debrided in length and thickness by 30% utilizing a nail nipper without incident. The patient was educated regarding all treatment options that include topical and oral antifungal treatments. I discussed the options of taking a sample of the nail to confirm diagnosis. Nail clippings were not sent for pathology analysis. The patient was educated why and how the fungal infection evolved in their feet and the patient was given information regarding how to prevent further infection. The patient was told to keep feet dry and change socks. The patient was told to be careful with old shoes and excessive sweating. The patient was educated regarding both OTC and prescription treatments. 01/31/2024 Other hammer toe(s) (acquired), left foot (ICD-10 - M20.42) 01/31/2024 Pain in right toe(s) (ICD-10 - M79.674) 01/31/2024 Pain in left toe(s) (ICD-10 - M79.675) 01/31/2024 Pain in right foot (ICD-10 - M79.671) 01/31/2024 Pain in left foot (ICD-10 - M79.672) 01/31/2024 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[place] arteries of extremities, bilateral legs (ICD-10 - I70.203) Patient educated on risks and aggravating factors of PVD, including conservative treatment options such as a diet and exercise regimen to aid in slowing progression of vascular disease 01/31/2024 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.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 After removal of overlying extensive hyperkeratosis, healthy tissue was noted and care was taken to assure that no undermining or probing was present. It should be noted that no probing was noted and no infection or drainage was noted. Plan Of Treatment Treatment Notes Assessment Notes Other hammer toe(s) (acquired), right fo ot The patient was educated regarding how to mechanically stabilize their deformity. The patient was given education about shoe recommendations specific for the condition. The patient was educated about custom orthotics and how appropriate shoes and orthotics can prevent further worsening of the deformity. The patient was educated about how bad shoe habits can worsen the condition. NSAIDS, P.T., injections and other conservative treatments were discussed. Both surgical and non surgical treatments were discussed, but conservative options were emphasized. Tinea unguium Aseptic debridement of elongated thickened nails x 10 using sterile nippers, nails were debrided in length and thickness by 30% utilizing a nail nipper without incident. The patient was educated regarding all treatment options that include topical and oral antifungal treatments. I discussed the options of taking a sample of the nail to confirm diagnosis. Nail clippings were not sent for pathology analysis. The patient was educated why and how the fungal infection evolved in their feet and the patient was given information regarding how to prevent further infection. The patient was told to keep feet dry and change socks. The patient was told to be careful with old shoes and excessive sweating. The patient was educated regarding both OTC and prescription treatments. 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 After removal of overlying extensive hyperkeratosis, healthy tissue was noted and care was taken to assure that no undermining or probing was present. It should be noted that no probing was noted and no infection or drainage was noted. Next Appt Details Follow Up: 3 Months, Reason: Provider Name:ANASTASIIA ORNELAS, 03:20:00 PM, [address] [place] [address], [phone], Progress Notes * KATIE CRUZDOB:1940 (83 yo M)Acc No.[id number]:01/31/2024 Patient: KATIE HOGAN Provider: Fara STEVE :1940 A ge:83 Y S ex:Male Date:01/31/2024 Address: [place] [id number] Subjective: * Chief Complaints: * 1 . *General care. * HPI: H PI: General care P atient presents to the office for at risk foot care. Patient states that their nails are thickened, elongated and painful. Patient states that it is aggravated by shoe gear. Onset is gradual. Patient denies being diabetic., Patient is taking prescription blood thinners., Date last seen by Dr. Handley was 01/2024., Initials mca. * ROS: G eneral / Constitutional: Patient denies w eakness. R espiratory: Patient denies c hronic cough, shortness of breath, sputum production. C ardiovascular: Patient denies c hest pain, history of TN, irregular heartbeat. M usculoskeletal: Patient complains of a rch pain, hammertoes. ? P eripheral Vascular: Patient denies b lanching of skin, cold extremities, decreased sensation in extremities. S kin: Patient complains of f ungal nails, nail changes. ? N eurologic: Patient denies d izziness, gait abnormality, headache. * Medical History: Objective: * Vitals: * Examination: P hysical Examination: V ascular: Dorsalis Pedis pulse noted at 1/4 right foot and 1/4 left foot and Posterior Tibial pulse noted at 1/4 right foot and 1/4 left foot, Capillary refill times noted to be less than three seconds x ten, Temperature gradient noted to be warm to cool to bilateral foot, pedal hair present to bilateral foot and no varicosities are noted Dermatologic: there are no open lesions, no signs of active clinical infection, no erythema noted, no ecchymoses, nails are elongated thickened and dystrophic with subungual debris x ten, hyperkeratotic tissue plantar fifth metatarsal head bilateral foot Musculoskeletal: there is pain to palpation onto nail plate x ten, no calf pain noted bilaterally, arch height noted at 2/5 non-weight bearing bilaterally, first metatarsophalangeal joint range of motion 30 deg non-weight bearing bilaterally, flexible fifth digit hammer toe deformity noted to bilateral foot reducible with kelikian push up test, pain to palpation sub fifth metatarsal head hyperkeratotic tissue bilateral foot Neurology: protective sensation intact to light touch bilateral digits one through five, vibratory sensation intact to first metatarsophalangeal joint bilaterally. Assessment: * Assessment: 1. T inea unguium - B35.1 (Primary) 2 . O ther hammer toe(s) (acquired), right foot - M20.41 3 . O ther hammer toe(s) (acquired), left foot - M20.42 ? 4 . P ain in right toe(s) - M79.674 5 . P ain in left toe(s) - M79.675 6 . P ain in right foot - M79.671 7 . P ain in left foot - M79.672 8 . U nspecified atherosclerosis of [place] arteries of extremities, bilateral legs - I70.203 9 . A cquired keratosis [keratoderma] palmaris et plantaris - L85.1 Plan: * Treatment: 2. O ther hammer toe(s) (acquired), right foot Notes: The patient was educated regarding how to mechanically stabilize their deformity. The patient was given education about shoe recommendations specific for the condition. The patient was educated about custom orthotics and how appropriate shoes and orthotics can prevent further worsening of the deformity. The patient was educated about how bad shoe habits can worsen the condition. NSAIDS, P.T., injections and other conservative treatments were discussed. Both surgical and non surgical treatments were discussed, but conservative options were emphasized. 3. U nspecified atherosclerosis of [place] arteries of extremities, bilateral legs Notes: Patient educated on risks and aggravating factors of PVD, including conservative treatment options such as a diet and exercise regimen to aid in slowing progression of vascular disease ? 4. 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 After removal of overlying extensive hyperkeratosis, healthy tissue was noted and care was taken to assure that no undermining or probing was present. It should be noted that no probing was noted and no infection or drainage was noted. * Procedure Codes: 1 1056 TRIM SKIN LESIONS, 2 TO 4, Modifiers: Q8 , 59792 DEBRIDE NAIL, 6 OR MORE, Modifiers: 59 , Q8 * Follow Up: 3 Months * Billing Information: * Visit Code: * Procedure Codes: 39624 TRIM SKIN LESIONS, 2 TO 4. Modifiers: Q8 14418 DEBRIDE NAIL, 6 OR MORE. 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 Patient states that their nails are thickened, elongated and painful. Patient states that it is aggravated by shoe gear. Onset is gradual. Patient denies being diabetic., Patient is taking prescription blood thinners., Date last seen by Dr. Handley was 01/2024., Initials mca Examination Category Sub-Category Detail Notes Category Not es Physical Examination Vascular: Dorsalis Pedis pulse noted at 1/4 right foot and 1/4 left foot and Posterior Tibial pulse noted at 1/4 right foot and 1/4 left foot, Capillary refill times noted to be less than three seconds x ten, Temperature gradient noted to be warm to cool to bilateral foot, pedal hair present to bilateral foot and no varicosities are noted Dermatologic: there are no open lesions, no signs of active clinical infection, no erythema noted, no ecchymoses, nails are elongated thickened and dystrophic with subungual debris x ten, hyperkeratotic tissue plantar fifth metatarsal head bilateral foot Musculoskeletal: there is pain to palpation onto nail plate x ten, no calf pain noted bilaterally, arch height noted at 2/5 non-weight bearing bilaterally, first metatarsophalangeal joint range of motion 30 deg non-weight bearing bilaterally, flexible fifth digit hammer toe deformity noted to bilateral foot reducible with kelikian push up test, pain to palpation sub fifth metatarsal head hyperkeratotic tissue bilateral foot Neurology: protective sensation intact to light touch bilateral digits one through five, vibratory sensation intact to first metatarsophalangeal joint bilaterally
--- OUTSIDE RECORDS SUMMARY | 2024-07-01 14:13 | XMS_ITS | Patient Health Summary ---
Author Organization [facility] Address [address] [place] [address] Care Team Providers Care Industrial Illuminating Engineer Name Role Phone Leticia Handley MD Primary Care Provider [phone] Nilesh Mojica DO Unavailable [phone] Enoc Sheridan PAMonieC Unavailable [phone] Note from [facility],non-owned Affiliates and Associated Physician Practices is amultiple site organization consisting of ambulatory clinics and hospital sitesin [place], [place], [place] and [place]. This disclosure is being madepursuant to the Care Everywhere program and may not contain all information available regarding this patient. Last updated 18.[facility] Allergies No known active allergies Medications * [...] 68 03/09/2017 11:06 AM CDT Temperature 36.6 C (97.9 F) 03/09/2017 11:06 AM CDT Respiratory Rate 18 03/09/2017 11:06 AM CDT Oxygen Saturation 96% 03/09/2017 11:23 AM CDT Inhaled Oxygen Concentration - - Weight 86.6 kg (191 lb) 03/08/2017 7:04 AM CDT Height 167.6 cm (5' 6 ) 01/16/2017 2:41 PM CDT Body Mass Index 30.83 01/16/2017 2:41 PM CDT Medical Devices Implanted Type Area Seed Cleaning Machine Operator Device Identifier Shelf Expiration Date Model / Serial / Lot Stem Tlr Inbone Ii 1 Lg 10mm Ankl Implanted:Qty : 1 on 03/08/2017 by Nilesh Mojica DO at [facility] Left: Ankle Thinkful 12/07/2023 [id number] / / [id number] 4 Long Tibial Tray Implanted:Qty : 1 on 03/08/2017 by Nilesh Mojica DO at [facility] Left: Ankle Thinkful 01/09/2025 [id number] / / [id number] Cmpnt Tlr Inbone 3 Dome Ankl Sulcus Implanted:Qty : 1 on 03/08/2017 by Nilesh Mojica DO at [facility] Left: Ankle Thinkful 12/09/2024 [id number] / / [id number] Infinity Poly Insert Implanted:Qty : 1 on 03/08/2017 by Nilesh Mojica DO at [facility] Left: Ankle Thinkful 10/22/2024 [id number] / / [id number] Screw Qckfix Kyler Canc 4.0 X 46 Implanted:Qty : 1 on 03/08/2017 by Nilesh Mojica DO at [facility] Left: Ankle Arthrex Inc [id number] / / Plate 61mm 3 Hl Hk Lck Ss Ft/Ankl Mdl Implanted:Qty : 1 on 03/08/2017 by Nilesh Mojica DO at [facility] Left: Ankle Arthrex Inc [id number] / / Screw 3.5mm 38mm T15 Hexalobe Ft Ankl Implanted:Qty : 1 on 03/08/2017 by Nilesh Mojica DO at [facility] Left: Ankle Arthrex Inc [id number] / / Graft Bone Othblst Ii Db Canc 1cc Algrf - [id number] Implanted:Qty : 1 on 03/08/2017 by Nilesh Mojica DO at [facility] Left: Ankle Integra Neurosciences 01/01/2019-010 / [id number] / [id number] Explanted Type Area Seed Cleaning Machine Operator Device Identifier Shelf Expiration Date Model / Serial / Lot Jonathan Total Ank Replacement Explanted:Qty: 1 on 03/08/2017 at [facility] Left: Ankle Evotec Inc TOTAL ANKLE REPL MORE / / Screw Qckfix Kyler Canc 4.0 X 46 Explanted:Qty: 1 on 03/08/2017 by Nilesh Mojica DO at [facility] Left: Ankle Arthrex Inc [id number] PTS [...] Left 3Vw or More (03/10/2024 12:34 PM COLLEGE TEACHER) Only the most recent of13 resultswithin the time period is included. Narrative [facility] - 03/10/2024 12:34 PM COLLEGE TEACHER Please see progress note in Epic for results. Nilesh Mojica DO DIAGNOSTIC IMAGING O RDERABLES SCWZRAD * IMAGING/RADIOLOGY/XRAY RESULTS ORDER (03/12/2017 8:08 PM COLLEGE TEACHER) Only the most recent of2 resultswithin the time period is included. Anatomical Region Laterality Modality Other Narrative 03/12/2017 8:08 PM COLLEGE TEACHER Ordered by an unspecified provider. Scanned Document IMAGING * CARDIAC STRESS TEST ORDER (03/12/2017 8:08 PM COLLEGE TEACHER) Narrative 03/12/2017 8:08 PM COLLEGE TEACHER Ordered by an unspecified provider. Scanned Document CARDIAC SERVICES ORD ERABLES * CARDIAC ECHOCARDIOGRAM COMPLETE ORDER (03/12/2017 8:08 PM COLLEGE TEACHER) Narrative 03/12/2017 8:08 PM COLLEGE TEACHER Ordered by an unspecified provider. Scanned Document ECHO ORDERABLES * CARDIAC PROCEDURE ORDER (03/12/2017 8:08 PM COLLEGE TEACHER) Narrative 03/12/2017 8:08 PM COLLEGE TEACHER Ordered by an unspecified provider. Scanned Document CARDIAC SERVICES ORD ERABLES * CARDIAC EKG ORDER (03/12/2017 8:06 PM COLLEGE TEACHER) Narrative 03/12/2017 8:06 PM COLLEGE TEACHER Ordered by an unspecified provider. Scanned Document CARDIAC SERVICES ORD ERABLES * CBC W AUTO DIFFERENTIAL (02/26/2017 11:14 AM CDT) WBC 6.5 4.4 - 10.7 x10E9/L 02/26/2017 11:20 AM CDT [facility] WBC Corrected x10E9/L 02/26/2017 11:20 AM CDT [facility] RBC 4.43 3.80 - 5.40 x10E12/L 02/26/2017 11:20 AM CDT [facility] Hemoglobin 14.5 12.0 - 17.6 gm/dL 02/26/2017 11:20 AM CDT [facility] Hematocrit 41.7 35.2 - 51.7 % 02/26/2017 11:20 AM CDT [facility] MCV 94.1 80.7 - 98.3 fl 02/26/2017 11:20 AM CDT [facility] MCH 32.7 26.7 - 34.0 pg 02/26/2017 11:20 AM CDT [facility] MCHC 34.8 30.8 - 35.9 gm/dL 02/26/2017 11:20 AM CDT [facility] Platelet Count 164 153 - 416 x10E9/L 02/26/2017 11:20 AM CDT [facility] RDW-CV 12.2 12.1 - 14.9 % 02/26/2017 11:20 AM CDT [facility] MPV 9.6 9.4 - 12.9 fl 02/26/2017 11:20 AM CDT [facility] Neutrophils % 58.8 44.0 - 73.0 % 02/26/2017 11:20 AM CDT [facility] Lymphocytes % 28.4 20.0 - 43.0 % 02/26/2017 11:20 AM CDT [facility] Monocytes % 8.6 5.0 - 13.0 % 02/26/2017 11:20 AM CDT [facility] Eosinophils % 2.9 0.0 - 6.0 % 02/26/2017 11:20 AM CDT [facility] Basophils % 1.1 0.0 - 2.0 % 02/26/2017 11:20 AM CDT [facility] Immature Granulocytes 0.2 0 - 1 % 02/26/2017 11:20 AM CDT [facility] Neutrophil Absolute 3.82 2.01 - 7.14 x10E9/L 02/26/2017 11:20 AM CDT [facility] Lymphocytes Absolute 1.84 1.07 - 3.94 x10E9/L 02/26/2017 11:20 AM CDT [facility] Monocytes Absolute 0.56 0.26 - 1.07 x10E9/L 02/26/2017 11:20 AM CDT [facility] Eosinophils Absolute 0.19 0 - 0.47 x10E9/L 02/26/2017 11:20 AM CDT [facility] Basophils Absolute 0.07 0 - 0.08 x10E9/L 02/26/2017 11:20 AM CDT [facility] Immature Granulocytes Absolute 0.01 0.00 - 0.06 x10E9/L 02/26/2017 11:20 AM CDT [facility] nRBC Auto 0 /100 WBC 02/26/2017 11:20 AM CDT [facility] Blood BLOOD SPECIMEN / Unknown Lab Venipuncture / Unknown 02/26/2017 11:14 AM CDT 02/26/2017 11:18 AM CDT Tristan Montiel MD LAB - HEMATOLOGY ORD ERABLES [facility] [address] [place] [address] * (ABNORMAL) BASIC METABOLIC PANEL (CALCIUM TOTAL) (02/26/2017 11:14 AM CDT) Glucose 89 74 - 106 mg/dL 02/26/2017 11:32 AM [facility] Sodium 144 136 - 145 mmol/L 02/26/2017 11:32 AM [facility] Potassium 3.9 3.5 - 5.1 mmol/L 02/26/2017 11:32 AM [facility] Chloride 109(H) 98 - 107 mmol/L 02/26/2017 11:32 AM [facility] CO2 28 22 - 31 mmol/L 02/26/2017 11:32 AM [facility] Calcium 8.5 8.5 - 10.1 mg/dL 02/26/2017 11:32 AM [facility] Anion Gap 7(L) 8 - 16 mmol/L 02/26/2017 11:32 AM [facility] BUN 15 7 - 21 mg/dL 02/26/2017 11:32 AM [facility] Creatinine 0.88 0.50 - 1.30 mg/dL 02/26/2017 11:32 AM [facility] eGFR by MDRD >60 mL/min/1.7 3m2 02/26/2017 11:32 AM T [facility] eGFR by MDRD >60 mL/min/1.7 3m2 02/26/2017 11:32 AM T [facility] Blood BLOOD SPECIMEN / Unknown Lab Venipuncture / Unknown 02/26/2017 11:14 AM CDT 02/26/2017 11:18 AM CDT Tristan Montiel MD LAB - CHEMISTRY TIFFANIE GRAMAJO [facility] [address] [place] [address] * CULTURE MSSA/MRSA (02/26/2017 10:59 AM CDT) Culture Negative for Staphylococcus aureus (MRSA/MSSA) LOVE 02/28/2017 6:21 AM CDT [facility] MICROBIOLOGY Microbiology SPECIMEN FROM NASAL FOSSAE / Unknown Collection / Unknown 02/26/2017 10:59 AM CDT 02/26/2017 11:11 AM CDT Nilesh Mojica DO LAB - MICROBIOLOGY O QUEENIE Performing Organization Address City/[facility]/ZIP Co de Phone Number [facility] MICROBIOLOGY [address] [place], [place] [address] [phone] * (ABNORMAL) URINALYSIS ROUTINE AUTO (02/26/2017 10:59 AM CDT) Color UA Yellow Straw, Yellow, Dark Yellow 02/26/2017 11:21 AM [facility] Clarity UA Clear 02/26/2017 11:21 AM T [facility] Specific [place] UA 1.015 1.005 - 1.030 02/26/2017 11:21 AM [facility] pH UA 6.5 5.0 - 8.0 pH 02/26/2017 11:21 AM [facility] Protein UA Negative Negative 02/26/2017 11:21 AM T [facility] Blood UA Negative Negative 02/26/2017 11:21 AM [facility] Leukocyte UA 1+(A) Negative 02/26/2017 11:21 AM [facility] Nitrite UA Negative Negative 02/26/2017 11:21 AM T [facility] Glucose UA Negative Negative 02/26/2017 11:21 AM [facility] Ketone UA Trace(A) Negative 02/26/2017 11:21 AM [facility] Bilirubin UA Negative Negative 02/26/2017 11:21 AM [facility] Urobilinogen UA 0.2 0.1 - 1.0 EU/dL 02/26/2017 11:21 AM CDT [facility] Urine URINE SPECIMEN OBTAINED BY CLEAN CATCH PROCEDURE / Unknown Collection / Unknown 02/26/2017 10:59 AM CDT 02/26/2017 11:10 AM CDT Nilesh Mojica DO LAB - URINALYSIS ORD ERABLES Performing Organization Address [facility] Co de Phone Number [address] [address] * URINALYSIS MICROSCOPIC ONLY (02/26/2017 10:59 AM CDT) WBC UA 2-5 0-2, 2-5 # /hpf 02/26/2017 11:36 AM CDT [facility] Epithelial Cell UA 0-2 0-2, 2-5 # /hpf 02/26/2017 11:36 AM CDT [facility] Urine URINE SPECIMEN OBTAINED BY CLEAN CATCH PROCEDURE / Unknown Collection / Unknown 02/26/2017 10:59 AM CDT 02/26/2017 11:10 AM CDT Nilesh Mojica DO LAB - URINALYSIS ORD MOREHOUSEBLES Performing Organization Address [facility] de Phone Number [address] [address] * CT LOWER EXTREMITY NON CONTRAST LEFT [...] Nilesh Mojica DO CT ORDERABLES Care Teams Industrial Illuminating Engineer Relationship Specialty Start Date End Date Leticia Handley MD PCP - General Internal Medicine 12/06/16 Nilehs Mojica DO Orthopedic Surgery 12/06/16 Enoc Sheridan PA-C [address] [place] [address] Physician Sales Route Driver Helper Physician Sales Route Driver Helper 03/13/17
--- OUTSIDE RECORDS SUMMARY | 2024-07-01 14:13 | XMS_ITS | Encounter Summary ---
Author Organization [facility] Address [address] [place] [address] Care Team Providers Care Business Systems Technician Name Role Phone Leticia Handley MD Primary Care Provider [phone] Karrie Mcgregor DO Primary Care Provide r Leticia Handley MD Primary Care Provider [phone] Encounter Details Date Type Department Care Team (Late st Contact Info) Description 08/15/2016 Orders Only [facility] ProviderNila MD [address] [place] [address] Social History Tobacco Use Types Packs/Day Years Used Date Smoking Tobacco: Never Alcohol Use Standard Drinks/Week Comments Yes 0 (1 standard drink = 0.6 oz pur e alcohol) Sex and Gender Information Value Date Recorded Sex Assigned at Not on file Legal Sex Male 12:29 AM DIGITAL EXPERIENCE MANAGER Gender Identity Not on file Sexual [...] on filedocumented in this encounter Care Teams Business Systems Technician Relationship Specialty Start Date End Date Leticia Handley MD [address] [place] [address] PCP - General 08/11/16 03/21/23 Karrie Mcgregor DO [address] [place] [address] PCP - General Psychiatry 03/22/23 05/07/23 Leticia Handley MD [address] [place] [address] PCP - General Internal Medicine 05/08/23 documented as of this encounter
--- OUTSIDE RECORDS SUMMARY | 2024-07-01 14:13 | XMS_ITS | Referral Summary ---
Author Organization [facility] [address] [place] [address] 162 Address [address] [place] [address] Care Team Providers Care Software Packaging Engineer Name Role Phone Leticia Handley MD Primary Care Provider Encounters Date Type Department Care Team Description 06/27/2024 Telephone [facility] Cardiology [address] [place] [address] Freeman Chavira MD 06/16/2024 Telephone [facility] Cardiology [address] [place] [address] Freeman Chavira MD samples 05/19/2024 Telephone [facility] Cardiology [address] [place] [address] Freeman Chavira MD 04/10/2024 5:53 PM NEWS VIDEO EDITOR - 04/10/2024 11:59 PM NEWS VIDEO EDITOR Hospital Encounter [facility] [address] [place] [address] Diagnosis unknown Discharge Disposition: Discharge to home or self care 04/10/2024 2:00 PM NEWS VIDEO EDITOR Office Visit [facility] Surgery [address] [address] Mauro Kidd MD Umbilical hernia without obstruction and without gangrene (Primary Dx); Chronic cholecystitis; Left inguinal hernia 03/31/2024 Telephone [facility] Movement Disorders [address] [place] [phone] Charlette Arias RN from Last 3 Months Allergies No known [...] 1 tablet (75 mcg total) by mouth certified veterinary technician before breakfast 30 tablet 1 3 Active [...] with bioprosthetic valve 07/17/2022 Postoperative atrial fibrillation ([facility]) 07/05 Chronic heart failure with p reserved ejection fraction (HFpEF) ([facility]/H[facility]) 02/08/2021 Localized edema 12/15/2019 Parkinson's disease 06/09/2019 Assessment & Plan (03/12/2024 1:31 PM NEWS VIDEO EDITOR): 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 [...] placement 11/29/2016 Coronary artery disease invo lving 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 No 06/06/2022 Personal Safety Answer Date Recorded Getting School Help Needed Denies 05/05 Sex and Gender Information Value Date Recorded Sex Assigned at Not on file Legal Sex Male 12:29 AM NEWS VIDEO EDITOR Gender Identity Not on file Sexual Orientation Not on file Last Filed Vital Signs Vital Sign Reading Time Taken Comments Blood Pressure 99/62 04/10/2024 2:18 PM NEWS VIDEO EDITOR Pulse 51 04/10/2024 2:18 PM NEWS VIDEO EDITOR Temperature 36.8 C (98.2 F) 04/10/2024 2:18 PM NEWS VIDEO EDITOR Respiratory Rate 18 04/10/2024 2:18 PM NEWS VIDEO EDITOR Oxygen Saturation 97% 04/10/2024 2:18 PM NEWS VIDEO EDITOR Inhaled Oxygen Concentration - - Weight 84.4 kg (186 lb) 04/10/2024 2:18 PM NEWS VIDEO EDITOR Height 167.6 cm (5' 5.98 ) 04/10/2024 2:18 PM CS T Body Mass Index 30.04 04/10/2024 2:18 PM NEWS VIDEO EDITOR Plan of Treatment Not on file Medical Devices Implanted Type Area Auto Service Writer Device Identifier Shelf Expiration Date Model / Serial / Lot Ziggy Medical Plate Bone Low Profile 6 Hole H Shape Ti 115.102.06 - [id number] Implanted:Qty: 1 on 06/05/2022 by Nicolás Arevalo MD at [facility] Plate N/A: Sternum [employer] 115.102. 06 / / Ziggy Medical Plate Bone Low Profile 4 Hole Box Ti 115.103.04 - [id number] Implanted:Qty: 1 on 06/05/2022 by Nicolás Arevalo MD at [facility] Plate N/A: Sternum [employer] 115.103. 04 / / Ziggy Medical Plate Bone Low Profile 6 Hole O Concave Ti 115.604.06 - [id number] Implanted:Qty: 1 on 06/05/2022 by Nicolás Arevalo MD at [facility] Plate N/A: Sternum [employer] 115.604. 06 / / Bhatti [employer]iences Von-Tim ds Perimount Magna Ease 23mm Bioprosthesis [id number] - [id number] - [id number] Implanted:Qty: 1 on 06/05/2022 by Nicolás Arevalo MD at [facility] Prosthetic Valve N/A: Heart [employer] 07/18/2024 [id number] / [id number] / Ziggy Medical Screw Bone Slf Drl Full Thread Locking 3.5x14mm Ti 100.035.14 - [id number] Implanted:Qty: 10 on 06/05/2022 by Nicolás Arevalo MD at [facility] Screw N/A: Sternum [employer] 100.035. 14 / / Ziggy Medical Screw Bone Slf Drl Full Thread Locking 3.5x16mm Ti 100.035.16 - [id number] Implanted:Qty: 6 on 06/05/2022 by Nicolás Arevalo MD at [facility] Screw N/A: Sternum [employer] 100.035. 16 / / Procedures Procedure Name Priority Date/Time Associated Diagnosis Comments CT BODY OUTSIDE CONSULT Routine 04/10/2024 5:53 PM NEWS VIDEO EDITOR Diagnosis unknown POCT LIPID PANEL Routine 08/02/2023 10:2 9 AM CDT Coronary artery disease involving venetie coronary artery of venetie heart without angina pectoris EGFR Routine 06/16/2022 10:03 AM NEWS VIDEO EDITOR HEMOGLOBIN A1C Routine 05/30/2022 12:59 PM NEWS VIDEO EDITOR Preop testing Type 2 diabetes mellitus with other specified complication, without long-term current use of insulin (HCC) from Last 3 Months or Most Recently Relevant to Health Maintenance Results * CT Body Outside Consult (04/10/2024 5:53 PM NEWS VIDEO EDITOR) Anatomical Region Laterality Modality Body N/A Computed Tomogra phy 04/11/2024 12:4 0 PM NEWS VIDEO EDITOR Impressions 04/11/2024 12:40 PM NEWS VIDEO EDITOR 1. Distended gallbladder with wall thickening and [...] images may or may not represent the venetie source data set and thus may contain changes that may lower the accuracy of this second-opinion interpretation. Electronically signed by: Boogie Smith MD, PHD Narrative 04/11/2024 12:40 PM NEWS VIDEO EDITOR EXAMINATION: RADIOLOGY CONSULTATION ON OUTSIDE IMAGING STUDY STUDY INITIALLY PERFORMED: 03/22/2024 at [facility]. TYPE OF STUDY: Multiple CT images of [...] STUDY INITIALLY PERFORMED: 03/22/2024 at [facility]. TYPE OF STUDY: Multiple CT images of [...] images may or may not represent the venetie source data set and thus may contain changes that may lower the accuracy of this second-opinion interpretation. Electronically signed by: Boogie Smith MD, PHD Mauro Kidd MD IMG CT PROCEDURES Amanda l Result * POCT lipid panel (08/02/2023 10:29 AM CDT) Cholesterol, POC <100 mg/dL Comment:GLU = 133 HDL, POC <15 mg/dL Triglycerides, POC 70 mg/dL LDL Cholesterol POC 71 mg/dL Chol/HDL Ratio, POC N/A Non-HDL Cholesterol, POC N/A mg/dL Cholesterol Total, POC <100 mg/dL Capillary blood 08/02/2023 1 0:29 AM CDT Rosales Watt MD POINT OF CARE TEST ORDER CHANEL Final Result * eGFR (06/16/2022 10:03 AM NEWS VIDEO EDITOR) eGFR 67 mL/min/1. 73 m2 RYAN LUX Comment: Interpretive Data Reference Interval Normal >/= 90 mL/min/1.73m2 Mildly decreased* 60 - 89 mL/min/1.73m2 Mildly to moderately decreased 45 - 59 mL/min/1.73m2 Moderately to severely decreased 30 - 44 mL/min/1.73m2 Severely decreased 15 - 29 mL/min/1.73m2 Kidney Failure < 15 mL/min/1.73m2 *Relative to young adult level Estimated glomerular [...] reviewed 2021. Blood 06/16/2022 10:0 3 AM NEWS VIDEO EDITOR 06/16/2022 10:03 AM NEWS VIDEO EDITOR Nicolás Arevalo MD LAB BLOOD ORDERABLES Final Res ult RYAN [id number] [address] Department [place] [address] * Hemoglobin A1c (05/30/2022 12:59 PM NEWS VIDEO EDITOR) Hgb A1C 5.5 4.0 - 5.6 % RYAN LUX Estimated Average Glucose 111 mg/dL RYAN LUX Comment: The ADA recommends reporting an estimated Average Glucose (eAG) with all Hemoglobin A1c results using the equation derived from a study of 507 normal and diabetic adults. Minority populations were underrepresented and children were not included. (Diabetes Care 31:8312-9563, 2008). The eAG is not equivalent to a fasting glucose. Blood 05/30/2022 12:5 9 PM NEWS VIDEO EDITOR 05/30/2022 1:03 PM NEWS VIDEO EDITOR Nicolás Arevalo MD LAB BLOOD [place] [address] [address] Department [place] [address] from Last 3 Months or Most Recently Relevant to Health [place] [id number] MEDICARE [facility] MEDICARE [place] [id number] MEDICARE [facility] [place] [address] [address] [phone] MEDICARE [facility] [place] [address] [id number] Advance Directives For more information, please contact: [phone] * Full Code (Latest Code Status on File) Date Activated Date Inactivated Comments 06/05/2022 2:49 PM 06/16/2022 5:28 PM Care Teams Software Packaging Engineer Relationship Specialty Start Date End Date Leticia Handley MD [address] [place] [address] PCP - General Internal Medicine 05/08/23
--- OUTSIDE RECORDS SUMMARY | 2024-07-01 14:13 | XMS_ITS | Encounter Summary ---
Author Organization [facility] Address [address] [place] [address] Care Team Providers Care Laundry Routeman Name Role Phone Leticia Handley MD Primary Care Provider Nilesh Mojica DO Unavailable Enoc Sheridan PA-C Unavailable Encounter Details Date Type Department Care Team (Late st Contact Info) Description 12/06/2016 [facility] Outpatient Visit [facility] Orthopedics - Radiology [address] [place] [address] Nilesh Mojica [address] [address] Social History Tobacco Use Types Packs/Day Years Used Date Smoking Tobacco: Never Smokeless Tobacco: Never Sex and Gender Information Value Date Recorded Sex Assigned at Not on file Gender Identity Not on file Sexual Orientation Not on file documented as of this encounter Plan of Treatment Upcoming Encounters Date Type Department Care Team (Late st Contact Info) Description 03/09/2025 10:40 AM RETAIL AND RESTAURANT Office Visit [facility] Orthopedics [address] [address] Nilesh Mojica [address] [address] documented as of this encounter Visit Diagnoses Not on filedocumented in this encounter Care Teams Laundry Routeman Relationship Specialty Start Date End Date Leticia Handley MD PCP - General Internal Medicine 12/06/16 Nilesh Mojica DO Orthopedic Surgery 12/06/16 Enoc Sheridan PA-C [address] [place] [address] Physician [employer] Physician [employer] 03/13/17 documented as of this encounter
--- OUTSIDE RECORDS SUMMARY | 2024-07-01 14:13 | XMS_ITS | Clinical Summary ---
Author Organization [facility] [address] Address [address] [place] [address] Care Team Providers Care Engineering Clerk Name Role Phone Leticia Handley MD Primary Care Provider [phone] Allergies No known active allergies Medications brimonidine-pan [...] 1 tablet (75 mcg total) by mouth roll wrapper before breakfast 30 tablet 1 3 Active [...] with bioprosthetic valve 07/17/2022 Postoperative atrial fibrillation ([facility]) 07/05 Chronic heart failure with p reserved ejection fraction (HFpEF) ([facility]) 02/08/2021 Localized edema 12/15/2019 Parkinson's disease 06/09/2019 Assessment & Plan (03/12/2024 1:31 PM COMMUNITY OUTREACH ADVOCATE): 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 [...] placement 11/29/2016 Coronary artery disease invo lving lytton coronary artery of lytton heart without angina pectoris 08/14/2016 Overview (09/29/2016): Coronary artery disease involving lytton coronary artery of lytton heart with other form of angina pectoris [...] Type Department Care Team Description 06/27/2024 Telephone [facility] [address] [facility] [address] [place] [phone] Freeman Chavira MD 06/16/2024 Telephone [facility] [address] [place] [phone] Freeman Chavira MD [facility] 05/19/2024 Telephone [facility] [address] [place] [phone] Freeman Chavira MD 04/10/2024 5:53 PM COMMUNITY OUTREACH ADVOCATE - 04/10/2024 11:59 PM COMMUNITY OUTREACH ADVOCATE Hospital Encounter [facility] [address] [place] [address] Diagnosis unknown Discharge Disposition: Discharge to home or self care 04/10/2024 2:00 PM COMMUNITY OUTREACH ADVOCATE Office Visit [facility] [address] [place] [address] [place] [phone] Mauro Kidd MD Umbilical hernia without obstruction and without gangrene (Primary Dx); Chronic cholecystitis; Left inguinal hernia 03/31/2024 Telephone [facility] [address] [place] [address] Charlette Arias RN from Last 3 Months Surgical History Surgery [...] Hypertension Hypertension Adiposity Obesity Sleep apnea CPAP OK (myocardial infarction) (HCC) 2014 CAD (coronary artery [...] relatives? Three times a week 06/06/2022 Attends [employer]ism Services Not on file 06/06 Active Member [...] place to sleep or slept in a prison (including now)? No 06/06/2022 Personal Safety Answer Date Recorded Getting School Help Needed Denies 05/05 Sex and Gender Information Value Date Recorded Sex Assigned at Not on file Legal Sex Male 12:29 AM COMMUNITY OUTREACH ADVOCATE Gender Identity Not on file Sexual Orientation Not on file Obstetrics History Last Filed Vital Signs Vital Sign Reading Time Taken Comments Blood Pressure 99/62 04/10/2024 2:18 PM COMMUNITY OUTREACH ADVOCATE Pulse 51 04/10/2024 2:18 PM COMMUNITY OUTREACH ADVOCATE Temperature 36.8 C (98.2 F) 04/10/2024 2:18 PM COMMUNITY OUTREACH ADVOCATE Respiratory Rate 18 04/10/2024 2:18 PM COMMUNITY OUTREACH ADVOCATE Oxygen Saturation 97% 04/10/2024 2:18 PM COMMUNITY OUTREACH ADVOCATE Inhaled Oxygen Concentration - - Weight 84.4 kg (186 lb) 04/10/2024 2:18 PM COMMUNITY OUTREACH ADVOCATE Height 167.6 cm (5' 5.98 ) 04/10/2024 2:18 PM CS T Body Mass Index 30.04 04/10/2024 2:18 PM COMMUNITY OUTREACH ADVOCATE Plan of Treatment Health Maintenance Due Date [...] 03/04/2015, 11/2012 Medical Devices Implanted Type Area Vp Cardiovascular Device Identifier Shelf Expiration Date Model / Serial / Lot Ziggy Medical Plate Bone Low Profile 6 Hole H Shape Ti 115.102.06 - [id number] Implanted:Qty: 1 on 06/05/2022 by Nicolás Arevalo MD at [facility] Plate N/A: Sternum [employer] 115.102. 06 / / Ziggy Medical Plate Bone Low Profile 4 Hole Box Ti 115.103.04 - [id number] Implanted:Qty: 1 on 06/05/2022 by Nicolás Arevalo MD at [facility] Plate N/A: Sternum [employer] 115.103. 04 / / Ziggy Medical Plate Bone Low Profile 6 Hole O Concave Ti 115.604.06 - [id number] Implanted:Qty: 1 on 06/05/2022 by Nicolás Arevalo MD at [facility] Plate N/A: Sternum [employer] 115.604. 06 / / Bhatti [employer]esciences Von-Tim ds Perimount Magna Ease 23mm Bioprosthesis [id number] - [id number] - [id number] Implanted:Qty: 1 on 06/05/2022 by Nicolás Arevalo MD at [facility] Prosthetic Valve N/A: Heart [employer] 07/18/2024 [id number] 3MM / [id number] / Ziggy Medical Screw Bone Slf Drl Full Thread Locking 3.5x14mm Ti 100.035.14 - [id number] Implanted:Qty: 10 on 06/05/2022 by Nicolás Arevalo MD at [facility] Screw N/A: Sternum [employer] 100.035. 14 / / Ziggy Medical Screw Bone Slf Drl Full Thread Locking 3.5x16mm Ti 100.035.16 - [id number] Implanted:Qty: 6 on 06/05/2022 by Nicolás Arevalo MD at [facility] Screw N/A: Sternum [employer] 100.035. 16 / / Procedures Procedure Name Priority Date/Time Associated Diagnosis Comments CT BODY OUTSIDE CONSULT Routine 04/10/2024 5:53 PM COMMUNITY OUTREACH ADVOCATE Diagnosis unknown POCT LIPID PANEL Routine 08/02/2023 10:2 9 AM CDT Coronary artery disease involving lytton coronary artery of lytton heart without angina pectoris EGFR Routine 06/16/2022 10:03 AM COMMUNITY OUTREACH ADVOCATE HEMOGLOBIN A1C Routine 05/30/2022 12:59 PM COMMUNITY OUTREACH ADVOCATE Preop testing Type 2 diabetes mellitus with other specified complication, without long-term current use of insulin (HCC) from Last 3 Months or Most Recently Relevant to Health Maintenance Results * CT Body Outside Consult (04/10/2024 5:53 PM COMMUNITY OUTREACH ADVOCATE) Anatomical Region Laterality Modality Body N/A Computed Tomogra phy 04/11/2024 12:4 0 PM COMMUNITY OUTREACH ADVOCATE Impressions 04/11/2024 12:40 PM COMMUNITY OUTREACH ADVOCATE 1. Distended gallbladder with wall thickening and [...] images may or may not represent the lytton source data set and thus may contain changes that may lower the accuracy of this second-opinion interpretation. Electronically signed by: Boogie Smith MD, PHD Narrative 04/11/2024 12:40 PM COMMUNITY OUTREACH ADVOCATE EXAMINATION: RADIOLOGY CONSULTATION ON OUTSIDE IMAGING STUDY STUDY INITIALLY PERFORMED: 03/22/2024 at [facility]. TYPE OF STUDY: Multiple CT images of [...] IMAGING STUDY STUDY INITIALLY PERFORMED: 03/22/2024 at [facility]. TYPE OF STUDY: Multiple CT images of [...] images may or may not represent the lytton source data set and thus may contain [...] Final Result * eGFR (06/16/2022 10:03 AM COMMUNITY OUTREACH ADVOCATE) eGFR 67 mL/min/1. 73 m2 RYAN LUX [...] reviewed 2021. Blood 06/16/2022 10:0 3 AM COMMUNITY OUTREACH ADVOCATE 06/16/2022 10:03 AM COMMUNITY OUTREACH ADVOCATE Nicolás Arevalo MD LAB BLOOD ORDERABLES Final Res ult RYAN LUX [address] Department [place] [address] * Hemoglobin A1c (05/30/2022 12:59 PM COMMUNITY OUTREACH ADVOCATE) Hgb A1C 5.5 4.0 - 5.6 % RYAN LUX Estimated Average Glucose 111 mg/dL RYAN LUX Comment: The ADA recommends reporting an estimated Average Glucose (eAG) with all Hemoglobin A1c results using the equation derived from a study of 507 normal and diabetic adults. Minority populations were underrepresented and children were not included. (Diabetes Care 31:3292-8988, 2008). The eAG is not equivalent to a fasting glucose. Blood 05/30/2022 12:5 9 PM COMMUNITY OUTREACH ADVOCATE 05/30/2022 1:03 PM COMMUNITY OUTREACH ADVOCATE us Nicolás Arevalo MD LAB BLOOD ORDERABLES Final Res ult RYAN [address] [address] Department [place] [address] from Last 3 Months or Most Recently Relevant to Health Maintenance Insurance MEDICARE [facility], [facility]–1983 MEDICARE SUPPLEMENT INSURANCE [place] [id number] MEDICARE [facility] [place] [address] [place] [phone] MEDICARE [facility] Address: [id number] [place] [address] [facility] [place] [address] [id number] Advance Directives For more information, please contact: [phone] * Full Code (Latest Code Status on File) Date Activated Date Inactivated Comments 06/05/2022 2:49 PM 06/16/2022 5:28 PM Care Teams Engineering Clerk Relationship Specialty Start Date End Date Leticia Handley MD [address] [place] [address] PCP - General Internal Medicine 05/08/23
--- OUTSIDE RECORDS SUMMARY | 2024-07-01 14:13 | XMS_ITS | Clinical Summary ---
Author Organization [facility] Address [address] [place] [address] Care Team Providers Care Bowling Alley Manager Name Role Phone Leticia Handley MD Primary Care Provider [phone] Nilesh Mojica DO Unavailable [phone] Enoc Sheridan PA-C Unavailable [phone] Source Comments [facility],non-owned Affiliates and Associated Physician Practices is amultiple site organization consisting of ambulatory clinics and hospital sitesin [place], [place], [place] and [place]. This disclosure is being madepursuant to the Care Everywhere program and may not contain all information available regarding this patient. Last updated 18.[facility] [employer] Allergies No known active allergies Medications * [...] st Contact Info) Description 03/09/2025 10:40 AM SALES PRODUCT SPECIALIST Office Visit [facility] Orthopedics [address] [facility], [address] [address] Nilesh Mojica DO [address] [address] Health Maintenance Due Date Last Done Comments MEDICARE AWV 12 MONTHS 1940 DTAP/TDAP/TD VACCINES (1 - Tdap) 1957 PNEUMOCOCCAL VACCINE 50+ (1 of 1 - PCV) 1988 ZOSTER VACCINE (1 of 2) 1988 Respiratory Syncytial Virus (RSV) Vaccine Pt: or over 60 yrs (1 - 1-dose 75+ series) 2013 COVID-19 VACCINE ( - season) 2024 INFLUENZA VACCINE (#1) 2024 8, [...] this topic Medical Devices Implanted Type Area Ram Press Operator Device Identifier Shelf Expiration Date Model / Serial / Lot Stem Tlr Inbone Ii 1 Lg 10mm Ankl Implanted:Qty : 1 on 03/08/2017 by [facility] Left: Ankle [employer] 12/07/2023 [id number] / / [id number] 4 Long Tibial Tray Implanted:Qty : 1 on 03/08/2017 by Nilesh Mojica DO at [facility] Left: Ankle [employer] 01/09/2025 [id number] / / [id number] Cmpnt Tlr Inbone 3 Dome Ankl Sulcus Implanted:Qty : 1 on 03/08/2017 by Nilesh Mojica DO at [facility] Left: Ankle [employer] 12/09/2024 [id number] / / [id number] Infinity Poly Insert Implanted:Qty : 1 on 03/08/2017 by Nilesh Mojica DO at [facility] Left: Ankle [employer] 10/22/2024 [id number] / / [id number] Screw Qckfix Kyler Canc 4.0 X 46 Implanted:Qty : 1 on 03/08/2017 by Nilesh Mojica DO at [facility] Left: Ankle Arthrex Inc [id number] / / Plate 61mm 3 Hl Hk Lck Ss Ft/Wanda Mdl Implanted:Qty : 1 on 03/08/2017 by Nilesh Mojica DO at [facility] Left: Ankle [employer] Inc AR-8943H-[id number] / / Screw 3.5mm 38mm T15 Hexalobe Ft Ankl Implanted:Qty : 1 on 03/08/2017 by Nilesh Mojica DO at [facility] Left: Ankle Ar[employer]rex Inc AR-8835-38 / / Graft Bone Othblst Ii Dbm Canc 1cc Algrf - [id number] Implanted:Qty : 1 on 03/08/2017 by Nilesh Mojica DO at [facility] Left: Ankle Integra [employer]iences 01/01/20192100-010 / [id number] / [id number] Explanted Type Area Ram Press Operator Device Identifier Shelf Expiration Date Model / Serial / Lot Jonathan Total Ank Replacement Explanted:Qty: 1 on 03/08/2017 at [facility] Left: Ankle [employer] TOTAL ANKLE REPL MORE / / Screw Qckfix Kyler Canc 4.0 X 46 Explanted:Qty: 1 on 03/08/2017 by Nilesh Mojica DO at [facility] Left: Ankle Ar[employer] Inc AR-[id number] PTS / / Advance Directives Documents on File Type Date Recorded Patient Identification Technician Expl anation Adv Directive/Living Will/POA 03/12/2017 8:08 PM * Full Code (Latest Code Status on File) Date Activated Date Inactivated Comments 03/08/2017 12:28 PM 03/09/2017 4:41 PM Care Teams Bowling Alley Manager Relationship Specialty Start Date End Date Leticia Handley MD PCP - General Internal Medicine 12/06/16 Nilesh Mojica DO Orthopedic Surgery 12/06/16 Enoc Sheridan PA-C [address] [place] [address] [address] Physician Meat Carver Physician Meat Carver 03/13/17
--- OUTSIDE RECORDS SUMMARY | 2024-07-01 14:13 | XMS_ITS ---
Author Organization [facility] Address [address] [place], [place] [id number] Care Team Providers Care High Pressure Operator Name Role Phone Estela Handley Unavailable Unavailable CARLOS STEVE Unavailable [phone] REASON FOR VISIT *General care Encounters Encounter Location Date Provider Diagnosis [facility] [address] [place], [place] [id number] 04/10/2024 CARLOS STEVE Other hammer toe(s) (acquired), right foot M20.41 ; Tinea unguium B35.1 ; Other hammer toe(s) (acquired), left foot M20.42 ; Pain in right toe(s) M79.674 ; Pain in left toe(s) M79.675 ; Pain in right foot M79.671 ; Pain in left foot M79.672 ; 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 04/10/2024 Tinea unguium (ICD-10 - B35.1) Aseptic debridement [...] educated regarding both OTC and prescription treatments. 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 [...] Date last seen by Dr. Handley was 03/2024., Initials mca. * ROS: G eneral / Constitutional: Patient denies w eakness. R espiratory: Patient denies c hronic cough, shortness of breath, sputum production. C ardiovascular: Patient denies c hest pain, history of [place], irregular heartbeat. M usculoskeletal: Patient complains of [...] M79.672 8 . U nspecified atherosclerosis of morongo arteries of extremities, bilateral legs - I70.203 [...] were emphasized. 3. U nspecified atherosclerosis of morongo arteries of extremities, bilateral legs Notes: Patient [...] LESIONS, 2 TO 4, Modifiers: Q8 , 54446 DEBRIDE NAIL, 6 OR MORE, Modifiers: 59 , Q8 * Follow Up: 3 Months * Billing Information: * Visit Code: * Procedure Codes: 08826 TRIM SKIN LESIONS, 2 TO 4. Modifiers: Q8 09767 DEBRIDE NAIL, 6 OR MORE. Modifiers: 59, Q8 * DRAWER Sign off status: Completed true * Provider: Fara STEVE Date: 06/11/2023 Generated for Joseph jang/Triny/Danielitting on: 0 07/01/2024 02:12 PM PROP DRAWER History and Physical Notes * HPI (History [...] Date last seen by Dr. Handley was 03/2024., Initials mca Examination Category Sub-Category Detail Notes [...]
--- OUTSIDE RECORDS SUMMARY | 2024-07-01 14:13 | XMS_ITS | Encounter Summary ---
Author Organization [facility] Address [address] [place] [address] Care Team Providers Care Master [place] Name Role Phone Leticia Handley MD Primary Care Provider [phone] Karrie Mcgregor DO Primary Care Provide r Leticia Handley MD Primary Care Provider [phone] Encounter Details Date Type Department Care Team (Late st Contact Info) Description 04/22/2019 Telephone [facility] Radiology [address] [place] [address] Steff Shah, RT Social History Tobacco Use Types Packs/Day Years Used Date Smoking Tobacco: Never Smokeless Tobacco: Never Alcohol Use Standard Drinks/Week Comments Yes 0 (1 standard drink = 0.6 oz pur e alcohol) Sex and Gender Information Value Date Recorded Sex Assigned at Not on file Legal Sex Male 12:29 AM 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
--- OUTSIDE RECORDS SUMMARY | 2024-07-01 14:13 | XMS_ITS | Clinical Summary ---
Author Organization [facility] Address [address] [place] [address] Care Team Providers Care Axminster Rug Setter Name Role Phone Leticia Handley MD Primary Care Provider [phone] Allergies No known active allergies Medications clopidogrel [...] opa (SINEMET) 25-250 MG tabletIndicatio ns:Parkinson's disease ([facility]) TAKE 1 TABLET BY MOUTH 4 TIMES DAILY 360 tablet 3 03/24/2022 Active pramipexole (MIRAPEX) 1 MG tabletIndicatio ns:Parkinson's disease ([facility]) Take 3 tablets (3 mg total) by [...] artery disease of n ative artery of alutiiq heart with stable angina pectoris 08/14/2016 Overview (05/27/2019): Overview: Coronary artery disease involving alutiiq coronary artery of alutiiq heart with other form of angina pectoris Dyslipidemia associated with type 2 diabetes mellitus ([facility]) 11/15/2015 Overview (05/27/2019): Overview: DM type 2 with diabetic dyslipidemia Hypertensive heart disease w ith congestive heart failure ([facility]) 08/02/2015 Overview (05/27/2019): Overview: Hypertensive heart disease with diastolic heart failure YANET on CPAP 08/02/2015 Overview (05/27/2019): Overview: YANET on CPAP Benign hypertension 04/26/2015 Overview (05/27/2019): Overview: HTN (hypertension), benign Dyslipidemia 04/26/2015 Overview (05/27/2019): Overview: Mixed dyslipidemia Cardiomyopathy ([facility]) 04/26/2015 Overview (05/27/2019): Overview: Cardiomyopathy Myocardial infarction ([facility]) 04/26/20 15 Overview (05/27/2019): Overview: ST elevation [...] 59 12/16/2021 8:52 AM CDT Temperature 36.3 C (97.4 F) 09/02/2020 8:59 AM CDT Respiratory Rate 18 07/13/2021 2:45 PM HORSE RANCHER Oxygen Saturation 96% 12/16/2021 8:52 AM CDT [...] age to complete this topic Insurance MEDICARE [employer] MEDICARE [employer] Care Teams Axminster Rug Setter Relationship Specialty Start Date End Date Leticia Handley MD [address] [place] [address] PCP - General INTERNAL MEDICINE 08/09/18
--- OUTSIDE RECORDS SUMMARY | 2024-07-01 14:13 | XMS_ITS | Patient Health Record ---
Author Organization [facility] Address [address] [place], [place] [id number] Care Team Providers Care Biodiesel Operations Manager Name Role Phone Handley, Estela Unavailable Unavailable ANASTASIIA ORNELAS Unavailable [phone] CARLOS STEVE Unavailable [phone] Allergies No Known Allergies Reason For Referral No Information Immunizations Vaccine Route Administration Date Status Comme nts Influenza, high dose seasonal Unknown 02/12/2023 Admini stered Vital Signs Height-cm 167.64 cm 11/29/2023 Weight-kg 90.72 kg 11/29/2023 Height 66.00 in 11/29/2023 Weight 200 lbs 11/29/2023 BMI 32.28 kg/m2 11/29/2023 Encounters Encounter Location Date Provider Diagnosis [facility] [address] [place], [place] [id number] 07/26/2023 CARLOS STEVE Other hammer toe(s) (acquired), right foot M20.41 ; Tinea unguium B35.1 ; Other hammer toe(s) (acquired), left foot M20.42 ; Pain in right toe(s) M79.674 ; Pain in left toe(s) M79.675 ; Pain in right foot M79.671 ; Pain in left foot M79.672 ; 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[place] arteries of extremities, bilateral legs I70.203 and Acquired keratosis [keratoderma] palmaris et plantaris L85.[address] [id number] 09/27/2023 CARLOS STEVE Other hammer toe(s) (acquired), right foot M20.41 ; Tinea unguium B35.1 ; Other hammer toe(s) (acquired), left foot M20.42 ; Pain in right toe(s) M79.674 ; Pain in left toe(s) M79.675 ; Pain in right foot M79.671 ; Pain in left foot M79.672 ; 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[place] arteries of extremities, bilateral legs I70.203 and Acquired keratosis [keratoderma] palmaris et plantaris L85.[address] [id number] 11/29/2023 CARLOS STEVE Other hammer toe(s) (acquired), right foot M20.41 ; Tinea unguium B35.1 ; Other hammer toe(s) (acquired), left foot M20.42 ; Pain in right toe(s) M79.674 ; Pain in left toe(s) M79.675 ; Pain in right foot M79.671 ; Pain in left foot M79.672 ; 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[place] arteries of extremities, bilateral legs I70.203 and Acquired keratosis [keratoderma] palmaris et plantaris L85.[address] [id number] 01/31/2024 CARLOS STEVE Other hammer toe(s) (acquired), right foot M20.41 ; Tinea unguium B35.1 ; Other hammer toe(s) (acquired), left foot M20.42 ; Pain in right toe(s) M79.674 ; Pain in left toe(s) M79.675 ; Pain in right foot M79.671 ; Pain in left foot M79.672 ; 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[place] arteries of extremities, bilateral legs I70.203 and Acquired keratosis [keratoderma] palmaris et plantaris L85.[address] [id number] 04/10/2024 CARLOS STEVE Other hammer toe(s) (acquired), right foot M20.41 ; Tinea unguium B35.1 ; Other hammer toe(s) (acquired), left foot M20.42 ; Pain in right toe(s) M79.674 ; Pain in left toe(s) M79.675 ; Pain in right foot M79.671 ; Pain in left foot M79.672 ; 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[place] arteries of extremities, bilateral legs I70.203 and Acquired keratosis [keratoderma] palmaris et plantaris L85.[address] [id number] 05/22/2024 ANASTASIIA ORNELAS Tinea unguium B35.1 ; Pain in right foot M79.671 ; Pain in left foot M79.672 ; Atherosclerosis of [place] arteries of extremities with intermittent claudication, bilateral legs I70.213 and Acquired keratosis [keratoderma] palmaris et plantaris L85.1 Assessments Encounter Date Diagnosis (ICD Code) Assessment Notes Treatment Notes Treatment Clinical Notes Section Notes 07/26/2023 Tinea unguium (ICD-10 - B35.1) Aseptic debridement [...] educated regarding both OTC and prescription treatments. 07/26/2023 Other hammer toe(s) (acquired), right foot (ICD-10 [...] were discussed, but conservative options were emphasized. 09/27/2023 Tinea unguium (ICD-10 - B35.1) Aseptic debridement [...] educated regarding both OTC and prescription treatments. 09/27/2023 Other hammer toe(s) (acquired), right foot (ICD-10 [...] were discussed, but conservative options were emphasized. 11/29/2023 Tinea unguium (ICD-10 - B35.1) Aseptic debridement [...] educated regarding both OTC and prescription treatments. 11/29/2023 Other hammer toe(s) (acquired), right foot (ICD-10 [...] prescription treatments. 01/31/2024 Other hammer toe(s) (acquired), right foot [...] prescription treatments. 04/10/2024 Other hammer toe(s) (acquired), right foot [...] were discussed, but conservative options were emphasized. 05/22/2024 Tinea unguium (ICD-10 - B35.1) Nails 1-5 Bilateral were debrided extensively with nail nippers and emery board, reducing length and girth to pink healthy tissue with any subungual debris and necrotic tissue removed 05/22/2024 Pain in right foot (ICD-10 - M79.671) 05/22/2024 Pain in left foot (ICD-10 - M79.672) 04/10/2024 Other hammer toe(s) (acquired), left foot (ICD-10 - M20.42) 01/31/2024 Other hammer toe(s) (acquired), left foot (ICD-10 - M20.42) 11/29/2023 Other hammer toe(s) (acquired), left foot (ICD-10 - M20.42) 09/27/2023 Other hammer toe(s) (acquired), left foot (ICD-10 - M20.42) 07/26/2023 Other hammer toe(s) (acquired), left foot (ICD-10 - M20.42) 07/26/2023 Pain in right toe(s) (ICD-10 - M79.674) 09/27/2023 Pain in right toe(s) (ICD-10 - M79.674) 11/29/2023 Pain in right toe(s) (ICD-10 - M79.674) 01/31/2024 Pain in right toe(s) (ICD-10 - M79.674) 05/22/2024 Atherosclerosis of [place] arteries of extremities with intermittent claudication, bilateral legs (ICD-10 - I70.213) 04/10/2024 Pain in right toe(s) (ICD-10 - M79.674) 04/10/2024 Pain in left toe(s) (ICD-10 - M79.675) 05/22/2024 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.1) A total of 2 corns or calluses, as described in the note above, were cut and pared utilizing a #15 blade 01/31/2024 Pain in left toe(s) (ICD-10 - M79.675) 11/29/2023 Pain in left toe(s) (ICD-10 - M79.675) 09/27/2023 Pain in left toe(s) (ICD-10 - M79.675) 07/26/2023 Pain in left toe(s) (ICD-10 - M79.675) 07/26/2023 Pain in right foot (ICD-10 - M79.671) 09/27/2023 Pain in right foot (ICD-10 - M79.671) 11/29/2023 Pain in right foot (ICD-10 - M79.671) 01/31/2024 Pain in right foot (ICD-10 - M79.671) 04/10/2024 Pain in right foot (ICD-10 - M79.671) 04/10/2024 Pain in left foot (ICD-10 - M79.672) 01/31/2024 Pain in left foot (ICD-10 - M79.672) 11/29/2023 Pain in left foot (ICD-10 - M79.672) 09/27/2023 Pain in left foot (ICD-10 - M79.672) 07/26/2023 Pain in left foot (ICD-10 - M79.672) 07/26/2023 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[place] arteries of extremities, bilateral legs (ICD-10 - I70.203) Patient educated on risks and aggravating factors of PVD, including conservative treatment options such as a diet and exercise regimen to aid in slowing progression of vascular disease 09/27/2023 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[place] arteries of extremities, bilateral legs (ICD-10 - I70.203) Patient educated on risks and aggravating factors of PVD, including conservative treatment options such as a diet and exercise regimen to aid in slowing progression of vascular disease 11/29/2023 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[place] arteries of extremities, bilateral legs (ICD-10 - I70.203) Patient educated on risks and aggravating factors of PVD, including conservative treatment options such as a diet and exercise regimen to aid in slowing progression of vascular disease 01/31/2024 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[place] arteries of extremities, bilateral legs (ICD-10 - I70.203) Patient educated on risks and aggravating factors of PVD, including conservative treatment options such as a diet and exercise regimen to aid in slowing progression of vascular disease 04/10/2024 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[place] arteries of extremities, bilateral legs (ICD-10 - [...] and no infection or drainage was noted. 01/31/2024 Acquired keratosis [keratoderma] palmaris et plantaris [...] and no infection or drainage was noted. 11/29/2023 Acquired keratosis [keratoderma] palmaris et plantaris (ICD-10 [...] and no infection or drainage was noted. 09/27/2023 Acquired keratosis [keratoderma] palmaris et plantaris (ICD-10 [...] and no infection or drainage was noted. 07/26/2023 Acquired keratosis [keratoderma] palmaris et plantaris (ICD-10 [...] or drainage was noted. Plan Of Treatment Next Appt Details Provider Name:ANASTASIIA CAALMARLENEMoisés, 03:20:00 PM, [address] [place] [address], [id number], Insurance Providers Payer Name Payer Address Payer Phone Subscriber Number Group Number Insured Name Patient Relationship to Insured Coverage Start Date Coverage End Date Medicare Part B [place] [address] [place] [address] [id number] KATIE CRUZ Self - patient is the insured [facility] ([facility]) ATTN CLAIMS [address] [place] [address] [id number] KATIE CRUZ Self - patient is the insured 4
--- OUTSIDE RECORDS SUMMARY | 2024-07-01 14:13 | XMS_ITS | Encounter Summary ---
Author Organization [facility] Healthcare Address [address] [place] [address] Care Team Providers Care Stamp Pad Finisher Name Role Phone Leticia Handley MD Primary Care Provider [phone] Encounter Details Date Type Department Care Team (Late st Contact Info) Description 06/27/2024 Telephone [facility] Medical Group Cardiology [address] [place] [address] Freeman Chavira MD [facility] [address] Social History Tobacco Use Types [...] relatives? 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 STRIAL HEALTH ENGINEER * Telephone Encounter - Kera Pelaez - 06/27/2024 12:36 PM CST Patient requesting samples of rivaroxaban (XARELTO) 20 mg. Contact [phone] STRIAL HEALTH ENGINEER documented in this encounter Plan of Treatment Not on file documented as of this encounter Visit Diagnoses Not on filedocumented in this encounter Care Teams Stamp Pad Finisher Relationship Specialty Start Date End Date Leticia Handley MD [address] [place] [address] PCP - General Internal Medicine 05/08/23 documented as of this encounter
--- OUTSIDE RECORDS SUMMARY | 2024-07-01 14:13 | XMS_ITS ---
Author Organization [facility] Address [address] [place], [place] [address] Care Team Providers Care Damper Maker Name Role Phone Ender Estela Unavailable Unavailable ANASTASIIA ORNELAS Unavailable [phone] Allergies No Known Allergies REASON FOR VISIT Patient presents for at-risk foot care . The patient has painful toenails and calluses that are causing difficulty with ambulation and shoegear. The onset is gradual Encounters Encounter Location Date Provider Diagnosis [address] [id number] 05/22/2024 ANASTASIIA ORNELAS Tinea unguium B35.1 ; Pain in right foot M79.671 ; Pain in left foot M79.672 ; Atherosclerosis of [place] arteries of extremities with intermittent claudication, bilateral legs I70.213 and Acquired keratosis [keratoderma] palmaris et plantaris L85.1 Assessments Encounter Date Diagnosis (ICD Code) Assessment Notes Treatment Notes Treatment Clinical Notes Section Notes 05/22/2024 Tinea unguium (ICD-10 - B35.1) Nails 1-5 Bilateral were debrided extensively with nail nippers and emery board, reducing length and girth to pink healthy tissue with any subungual debris and necrotic tissue removed 05/22/2024 Pain in right foot (ICD-10 - M79.671) 05/22/2024 Pain in left foot (ICD-10 - M79.672) 05/22/2024 Atherosclerosis of [place] arteries of extremities with intermittent claudication, bilateral legs (ICD-10 - I70.213) 05/22/2024 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.1) A total of 2 corns or calluses, as described in the note above, were cut and pared utilizing a #15 blade Plan Of Treatment Treatment Notes Assessment Notes Tinea unguium Nails 1-5 Bilateral were debrided extensively with nail nippers and emery board, reducing length and girth to pink healthy tissue with any subungual debris and necrotic tissue removed Acquired keratosis [keratode rma] palmaris et plantaris A total of 2 corns or calluses, as described in the note above, were cut and pared utilizing a #15 blade Next Appt Details Follow Up: 10 - 12 weeks, Re ason: At-Risk Foot care, sooner if problems develop. Provider Name:ANASTASIIA ORNELAS, 03:20:00 PM, [address] [place] [address], [id number], Progress Notes * KATIE CRUZDOB:1940 (83 yo M)Acc No.[id number]:05/22/2024 Patient: KATIE HOGAN Provider: Whitney Ornelas DPM :1940 A ge:83 Y S ex:Male Date:05/22/2024 Address:[address] [place] [address] Subjective: * Chief Complaints: * Glenroy rm presents for at-risk foot care . The patient has painful toenails and calluses that are causing difficulty with ambulation and shoegear. The onset is gradual * HPI: H PI: General care Glenroy rm presents to the office for at risk foot care. Patient states that their nails are thickened, elongated and painful. Patient states that it is aggravated by shoe gear. Onset is gradual. Patient denies being diabetic., Patient is taking prescription blood thinners., Date last seen by Dr. Handley was January 2024., Initials LB. * Medical History: * Surgical History: * Hospitalization/Major Diagno stic Procedure: * Social History: M igrated Social History: M igrated Social History: History of tobacco use : , Smoking Status : Never used tobacco. * Medications: * Allergies: N .K.D.A.no[Allergies Verified] Objective: * Vitals: * Examination: P hysical Examination: General appearance: A lert, pleasant, well-nourished and in no acute distress. D ermatologic: Skin findings: S kin is thin, atrophic and lacking pedal hair. Hypertrophic / hyperkeratotic lesion: p lantar aspect of the right 5th metatarsal head, plantar aspect of the left 1st metatarsal head. Nail pathology: N ails 1, 2, 3, 4, and 5 bilateral are elongated, thick, discolored, and dystrophic with subungual debris. They are painful to palpation. ? V ascular: Dorsalis pedis pulse: 1 /4 b ilateral. Posterior tibial pulse: 0 /4 bilateral. Capillary refill: g reater than 3 seconds. Edema: N o edema bilateral. N eurologic: Gross sensation G rossly intact to light touch. There is negative Tinel's sign. M usculoskeletal: Muscle Strength M uscle strength is 5/5 in regards to dorsiflexion, plantarflexion, inversion, and eversion in bilateral lower extremities. ? Assessment: * Assessment: 1. T inea unguium - B35.1 (Primary) 2 . P ain in right foot - M79.671 ? 3 . P ain in left foot - M79.672 4 . A therosclerosis of [place] arteries of extremities with intermittent claudication, bilateral legs - I70.213 5 . Acquired keratosis [keratoderma] palmaris et plantaris - L85.1 Plan: * Treatment: 2. A cquired keratosis [keratoderma] palmaris et plantaris Notes: A total of 2 corns or calluses, as described in the note above, were cut and pared utilizing a #15 blade * Procedure Codes: 1 1056 TRIM SKIN LESIONS, 2 TO 4, Modifiers: Q8 57069 DEBRIDE NAIL, 6 OR MORE, Modifiers: 59 , Q8 * Follow Up: 1 0 - 12 weeks (Reason: At-Risk Foot care, sooner if problems develop.) * Billing Information: * Visit Code: * Procedure Codes: 59245 TRIM SKIN LESIONS, 2 TO 4. Modifiers: Q8 47347 DEBRIDE NAIL, 6 OR MORE. Modifiers: 59, Q8 * ABORATING SUPERVISING PHYSICIAN Sign off status: Completed true * Provider: Whitney Ornelas DPM Date: 0 05/22/2024 Generated for Joseph Gordon/Enzo on: 0 07/01/2024 02:13 PM COLLABORATING SUPERVISING PHYSICIAN History and Physical Notes * HPI (History [...] Date last seen by Dr. Handley was January 2024., Initials LB Examination Category Sub-Category Detail Notes Category Not es Dermatologic Skin findings: Skin is thin, at rophic and lacking pedal hair Nail pathology: Nails 1, 2, 3, 4, an d 5 bilateral are elongated, thick, discolored, and dystrophic with subungual debris. They are painful to palpation Hypertrophic / hyperkeratotic lesion: pl genet aspect of the right 5th metatarsal head, plantar aspect of the left 1st metatarsal head Neurologic Gross sensation Grossly intact t o light touch. There is negative Tinel's sign Vascular Dorsalis pedis pulse: 1/4 bilateral Edema: No edema bilateral Capillary refill: greater than 3 secon ds Posterior tibial pulse: 0/4 bilateral Physical Examination General appearance: Alert, pleasant, well-nourished and in no acute distress Musculoskeletal Muscle Strength Muscle strength is 5/5 in regards to dorsiflexion, plantarflexion, inversion, and eversion in bilateral lower extremities
--- OUTSIDE RECORDS SUMMARY | 2024-07-01 14:13 | XMS_ITS | Encounter Summary ---
Author Organization [facility] Healthcare Address [address] [place] [address] Care Team Providers Care Special Events Fundraiser Name Role Phone Leticia Handley MD Primary Care Provider [phone] Reason for Visit * Reason Onset Date Comments samples 06/16/2024 Encounter Details Date Type Department Care Team (Late st Contact Info) Description 06/16/2024 Telephone [facility] Medical Group Cardiology [address] [place] [address] Freeman Chavira MD [address] [address] samples Social History Tobacco Use Types Packs/Day Years [...] relatives? Three times a week 06/06/2022 Attends Orthodox Services Not on file 06/06 Active Member [...] place to sleep or slept in a assisted (including now)? 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 Contact [phone] CASTER HELPER documented in this encounter Plan of Treatment Not on file documented as of this encounter Visit Diagnoses Not on filedocumented in this encounter Care Teams Special Events Fundraiser Relationship Specialty Start Date End Date Leticia Handley MD [address] [place] [address] PCP - General Internal Medicine 05/08/23 documented as of this encounter
--- OUTSIDE RECORDS SUMMARY | 2024-07-01 14:13 | XMS_ITS | Referral Summary ---
Author Organization [facility] Address [address] [place] [address] Care Team Providers Care Data Software Engineer Name Role Phone Leticia Handley MD Primary Care Provider [phone] Nilesh Mojica DO Unavailable [phone] Enoc Sheridan PA-C Unavailable [phone] Source Comments [facility],non-owned Affiliates and Associated Physician Practices is amultiple site organization consisting of ambulatory clinics and hospital sitesin [place], [place], [place] and [place]. This disclosure is being madepursuant to the Care Everywhere program and may not contain all information available regarding this patient. Last updated 18.[employer] Allergies No known active allergies Medications * [...] st Contact Info) Description 03/09/2025 10:40 AM CLASSIFICATION CASE MANAGER Office Visit [facility] Orthopedics [address] [place] [phone] Nilesh Mojica DO [address] [place] [phone] Medical Devices Implanted Type Area Director Digital Sales Device Identifier Shelf Expiration Date Model / Serial / Lot Stem Tlr Inbone Ii 1 Lg 10mm Ankl Implanted:Qty : 1 on 03/08/2017 by Nilesh Mojica DO at [facility] Left: Ankle Yek Mobile 12/07/2023 [id number] / / [id number] 4 Long Tibial Tray Implanted:Qty : 1 on 03/08/2017 by Nilesh Mojica DO at [facility] Left: Ankle Yek Mobile 01/09/2025 [id number] / / [id number] Cmpnt Tlr Inbone 3 Dome Ankl Sulcus Implanted:Qty : 1 on 03/08/2017 by Nilesh Mojica DO at [facility] Left: Ankle Yek Mobile 12/09/2024 [id number] / / [id number] Infinity Poly Insert Implanted:Qty : 1 on 03/08/2017 by Nilesh Mojica DO at [facility] Left: Ankle [employer] 10/22/2024 [id number] / / [id number] Screw Qckfix Kyler Canc 4.0 X 46 Implanted:Qty : 1 on 03/08/2017 by Nilesh Mojica DO at [facility] Left: Ankle Arthrex Inc [id number] / / Plate 61mm 3 Hl Hk Lck Ss Ft/Ankl Mdl Implanted:Qty : 1 on 03/08/2017 by Nilesh Mojica DO at [facility] Left: Ankle Arthrex Inc [id number]-[id number] / / Screw 3.5mm 38mm T15 Hexalobe Ft Ankl Implanted:Qty : 1 on 03/08/2017 by Nilesh Mojica DO at [facility] Left: Ankle Arthrex Inc [id number] / / Graft Bone Othblst Ii Dbm Canc 1cc Alg - [id number] Implanted:Qty : 1 on 03/08/2017 by Nilesh Mojica DO at [facility] Left: Ankle Integra [employer]iences 01/01/2019-010 / [id number] / [id number] Explanted Type Area Director Digital Sales Device Identifier Shelf Expiration Date Model / Serial / Lot Jonathan Total Ank Replacement Explanted:Qty: 1 on 03/08/[address] [facility] Left: Ankle [employer] TOTAL ANKLE REPL MORE / / Screw Qckfix Kyler Canc 4.0 X 46 Explanted:Qty: 1 on 03/08/2017 by Nilesh Mojica DO at [facility] Left: Ankle Arthrex Inc [id number] PTS / / Advance Directives Documents on File Type Date Recorded Patient Tin Stacker Expl anation Adv Directive/Living Will/POA 03/12/2017 8:08 PM * Full Code (Latest Code Status on File) Date Activated Date Inactivated Comments 03/08/2017 12:28 PM 03/09/2017 4:41 PM Care Teams Data Software Engineer Relationship Specialty Start Date End Date Leticia Handley MD PCP - General Internal Medicine 12/06/16 Nilesh Mojica DO Orthopedic Surgery 12/06/16 Enoc Sheridan PA-C [address] [address] Physician Cartoonist Special Effects Physician Cartoonist Special Effects 03/13/17
--- NOTE | 2024-07-01 15:18 | PC.NURSE ---
Patient here for #1 of 2 IV Venofer infusions. Education given. NO concerns voiced. Reports you always give these to my . IV Venofer administered. SEE MAR/patient care notes. Tolerated well.
[2024-07-01 15:19] VITALS: BP 140/70; PULSE 76; RESP 14; O2SAT 97
== END 2024-07-01 12:33 | disposition home or self-care (01) ==
PROVIDERS: PCP Internal Medicine; Visit Provider Internal Medicine
DX: D50.9 Iron deficiency anemia, unspecified (principal)
CPT/HCPCS: 96365; 96366; J1756; J7050

== ENCOUNTER 2024-07-16 12:51 | Outpatient (CLI) | payer MEDICARE, SELFPAY ==
[2024-07-16] MEDS: IRON SUCROSE COMPLEX 300 MG in SODIUM CHLORIDE 0.9% IV 235 ML 125 MG IVPB (13:26)
[2024-07-16 13:28] VITALS: BP 135/70; PULSE 78; RESP 20; TEMP 36.6; O2SAT 95
--- OUTSIDE RECORDS SUMMARY | 2024-07-16 14:10 | XMS_ITS | Referral Summary ---
Author Organization [place] [address] Address [address] [place] [address] Care Team Providers Care Road Worker Name Role Phone Leticia Handley MD Primary Care Provider [phone] Encounters Date Type Department Care Team Description 06/27/2024 Telephone [facility] Cardiology [address] [place] [address] [place] [phone] Freeman Chavira MD 06/16/2024 Telephone [facility] Cardiology [address] [place] [address] [place] [phone] Freeman Chavira MD samples 05/19/2024 Telephone [facility] Cardiology [address] [place] [address] [place] [phone] Freeman Chavira MD from Last 3 Months Allergies No known [...] 1 tablet (75 mcg total) by mouth early childhood education instructor before breakfast 30 tablet 1 3 Active [...] with bioprosthetic valve 07/17/2022 Postoperative atrial fibrillation 07/17/2022 Chronic heart failure with p reserved ejection fraction (HFpEF) 02/08/2021 Localized edema 12/15/2019 Parkinson's disease 06/09/2019 Assessment & Plan (03/12/2024 1:31 PM INDUSTRIAL ELECTRICAL ENGINEER): 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 [...] placement 11/29/2016 Coronary artery disease invo lving [place] coronary artery of [place] heart without angina pectoris 08/14/2016 Overview (09/29/2016): Coronary artery disease involving [place] coronary artery of [place] heart with other form of angina pectoris [...] relatives? Three times a week 06/06/2022 Attends [employer] Not on file 06/06 Active Member [...] place to sleep or slept in a half-way (including now)? No 06/06/2022 Personal Safety Answer Date Recorded Getting School Help Needed Denies 05/05 Sex and Gender Information Value Date Recorded Sex Assigned at Not on file Legal Sex Male 12:29 AM INDUSTRIAL ELECTRICAL ENGINEER Gender Identity Not on file Sexual Orientation Not on file Last Filed Vital Signs Vital Sign Reading Time Taken Comments Blood Pressure 99/62 04/10/2024 2:18 PM INDUSTRIAL ELECTRICAL ENGINEER Pulse 51 04/10/2024 2:18 PM INDUSTRIAL ELECTRICAL ENGINEER Temperature 36.8 C (98.2 F) 04/10/2024 2:18 PM INDUSTRIAL ELECTRICAL ENGINEER Respiratory Rate 18 04/10/2024 2:18 PM INDUSTRIAL ELECTRICAL ENGINEER Oxygen Saturation 97% 04/10/2024 2:18 PM INDUSTRIAL ELECTRICAL ENGINEER Inhaled Oxygen Concentration - - Weight 84.4 kg (186 lb) 04/10/2024 2:18 PM INDUSTRIAL ELECTRICAL ENGINEER Height 167.6 cm (5' 5.98 ) 04/10/2024 2:18 PM CS T Body Mass Index 30.04 04/10/2024 2:18 PM INDUSTRIAL ELECTRICAL ENGINEER Plan of Treatment Not on file Medical Devices Implanted Type Area Room Cleaner Device Identifier Shelf Expiration Date Model / Serial / Lot Zig[employer] Medical Plate Bone Low Profile 6 Hole H Shape Ti 115.102.06 - [id number] Implanted:Qty: 1 on 06/05/2022 by Nicolás Arevalo MD at [facility] Plate N/A: Sternum [employer] 115.102. 06 / / Ziggy Medical Plate Bone Low Profile 4 Hole Box Ti 115.103.04 - [id number] Implanted:Qty: 1 on 06/05/2022 by Nicolás Arevalo MD at [facility] Plate N/A: Sternum [employer] 115.103. 04 / / Ziggy Medical Plate Bone Low Profile 6 Hole O Concave Ti 115.604.06 - [id number] Implanted:Qty: 1 on 06/05/2022 by Nicolás Arevalo MD at [facility] Plate N/A: Sternum [employer] 115.604. 06 / / [employer] Von-Tim ds Perimount Magna Ease 23mm Bioprosthesis [id number] - [id number] - [id number] Implanted:Qty: 1 on 06/05/2022 by Nicolás Arevalo MD at [facility] Prosthetic Valve N/A: Heart [employer] 07/18/2024 [id number] 3MM / [id number] / Ziggy Medical Screw Bone Slf Drl Full Thread Locking 3.5x14mm Ti 100.035.14 - [id number] Implanted:Qty: 10 on 06/05/2022 by Nicolás Arevalo MD at [facility] Screw N/A: Sternum [employer] 100.035. 14 / / Ziggy Medical Screw Bone Slf Drl Full Thread Locking 3.5x16mm Ti 100.035.16 - [id number] Implanted:Qty: 6 on 06/05/2022 by Nicolás Arevalo MD at [facility] Screw N/A: Sternum [employer] 100.035. 16 / / Procedures Procedure Name Priority Date/Time Associated Diagnosis Comments POCT LIPID PANEL Routine 08/02/2023 10:2 9 AM CDT Coronary artery disease involving [place] coronary artery of [place] heart without angina pectoris EGFR Routine 06/16/2022 10:03 AM INDUSTRIAL ELECTRICAL ENGINEER HEMOGLOBIN A1C Routine 05/30/2022 12:59 PM INDUSTRIAL ELECTRICAL ENGINEER Preop testing Type 2 diabetes mellitus with other specified complication, without long-term current use of insulin (HCC) from Last 3 Months or Most Recently Relevant to Health Maintenance Results * POCT lipid panel (08/02/2023 10:29 AM [...] Final Result * eGFR (06/16/2022 10:03 AM INDUSTRIAL ELECTRICAL ENGINEER) Pathologist [facility] [place] eGFR 67 mL/min/1. 73 m2 RYAN LUX [...] reviewed 2021. Blood 06/16/2022 10:0 3 AM INDUSTRIAL ELECTRICAL ENGINEER 06/16/2022 10:03 AM INDUSTRIAL ELECTRICAL ENGINEER Nicolás Arevalo MD LAB BLOOD ORDERABLES Final Res ult RYAN LUX [address] [place] [address] * Hemoglobin A1c (05/30/2022 12:59 PM INDUSTRIAL ELECTRICAL ENGINEER) Hgb A1C 5.5 4.0 - 5.6 % RYAN LUX Estimated Average Glucose 111 mg/dL RYAN LUX Comment: The ADA recommends reporting an estimated Average Glucose (eAG) with all Hemoglobin A1c results using the equation derived from a study of 507 normal and diabetic adults. Minority populations were underrepresented and children were not included. (Diabetes Care 31:4699-0596, 2008). The eAG is not equivalent to a fasting glucose. Blood 05/30/2022 12:5 9 PM INDUSTRIAL ELECTRICAL ENGINEER 05/30/2022 1:03 PM INDUSTRIAL ELECTRICAL ENGINEER Nicolás Arevalo MD LAB BLOOD ORDERABLES Final Res ult RYAN LUX [address] [address] Department [place] [address] from Last 3 Months or Most Recently Relevant to Health Maintenance Insurance MEDICARE [facility] MEDICARE SUPPLEMENT INSURANCE MEDICARE [facility] MEDICARE SUPPLEMENT MEDICARE [facility] MEDICARE SUPPLEMENT Advance Directives For more information, please contact: [phone] * Full Code (Latest Code Status on File) Date Activated Date Inactivated Comments 06/05/2022 2:49 PM 06/16/2022 5:[address] Worker Relationship Specialty Start Date End Date Leticia Handley MD [address] [place], [place] [id number] PCP - General Internal Medicine 05/08/23
--- OUTSIDE RECORDS SUMMARY | 2024-07-16 14:10 | XMS_ITS ---
Author Organization [facility] Address [address] [place], [place] [address] Care Team Providers Care Clinical Nursing Manager Name Role Phone Estela Handley Unavailable Unavailable CARLOS STEVE Unavailable [phone] REASON FOR VISIT *General care Encounters Encounter Location Date Provider Diagnosis [facility] [address] [place], [place] [id number] 04/10/2024 CARLOS STEVE Other hammer toe(s) (acquired), right foot M20.41 ; Tinea unguium B35.1 ; Other hammer toe(s) (acquired), left foot M20.42 ; Pain in right toe(s) M79.674 ; Pain in left toe(s) M79.675 ; Pain in right foot M79.671 ; Pain in left foot M79.672 ; 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[place] arteries of extremities, bilateral legs I70.203 and [...] (ICD-10 - M79.672) 04/10/2024 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[place] arteries of extremities, bilateral legs (ICD-10 - [...] OTC and prescription treatments. 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[place] arteries of extremities, bilateral legs Patient educated [...] Months, Reason: Provider Name:ANASTASIIA ORNELAS, 03:20:00 PM, [address] [place] [address], [phone], Progress Notes * KATIE CRUZDOB:1940 (83 yo M)Acc No.[id number]:04/10/2024 Patient: KATIE HOGAN Provider: Fara STEVE :1940 A ge:83 Y S ex:Male Date:04/10/2024 Address: [place] [id number] Subjective: * Chief Complaints: * 1 . [...] Patient denies c hest pain, history of ND, irregular heartbeat. M usculoskeletal: Patient complains of [...] M79.672 8 . U nspecified atherosclerosis of [place] arteries of extremities, bilateral legs - I70.203 [...] were emphasized. 3. U nspecified atherosclerosis of [place] arteries of extremities, bilateral legs Notes: Patient [...] LESIONS, 2 TO 4, Modifiers: Q8 , 38426 DEBRIDE NAIL, 6 OR MORE, Modifiers: 59 , Q8 * Follow Up: 3 Months * Billing Information: * Visit Code: * Procedure Codes: 49911 TRIM SKIN LESIONS, 2 TO 4. Modifiers: Q8 06448 DEBRIDE NAIL, 6 OR MORE. Modifiers: 59, Q8 * TRONIC SPECIALIST Sign off status: Completed true * Provider: Fara STEVE Date: 06/11/2023 Generated for Joseph jang/Triny/Danielitting on: 0 07/16/2024 02:10 PM CDT History and Physical Notes * HPI (History [...]
--- OUTSIDE RECORDS SUMMARY | 2024-07-16 14:10 | XMS_ITS | Clinical Summary ---
Author Organization [facility] Address [address] [place] [address] Care Team Providers Care Fish Hatchery Inspector Name Role Phone Leticia Handley MD Primary Care Provider [phone] Allergies No known active allergies Medications clopidogrel [...] opa (SINEMET) 25-250 MG tabletIndicatio ns:Parkinson's disease ([facility]) TAKE 1 TABLET BY MOUTH 4 TIMES DAILY 360 tablet 3 03/24/2022 Active pramipexole (MIRAPEX) 1 MG tabletIndicatio ns:Parkinson's disease ([facility]) Take 3 tablets (3 mg total) by [...] artery disease of n ative artery of [place] heart with stable angina pectoris 08/14/2016 Overview (05/27/2019): Overview: Coronary artery disease involving [place] coronary artery of [place] heart with other form of angina pectoris Dyslipidemia associated with type 2 diabetes mellitus ([facility]) 11/15/2015 Overview (05/27/2019): Overview: DM type 2 with diabetic dyslipidemia Hypertensive heart disease w ith congestive heart failure ([facility]) 08/02/2015 Overview (05/27/2019): Overview: Hypertensive heart disease with diastolic heart failure YANET on CPAP 08/02/2015 Overview (05/27/2019): Overview: YANET on CPAP Benign hypertension 04/26/2015 Overview (05/27/2019): Overview: HTN (hypertension), benign Dyslipidemia 04/26/2015 Overview (05/27/2019): Overview: Mixed dyslipidemia Cardiomyopathy ([facility]) 04/26/2015 Overview (05/27/2019): Overview: Cardiomyopathy Myocardial infarction ([facility]) 04/26/20 15 Overview (05/27/2019): Overview: ST elevation [...] CDT Respiratory Rate 18 07/13/2021 2:45 PM LANDSCAPE ACCOUNT MANAGER Oxygen Saturation 96% 12/16/2021 8:52 AM CDT [...] age to complete this topic Insurance MEDICARE [facility] [employer] [facility] Care Teams Fish Hatchery Inspector Relationship Specialty Start Date End Date Leticia Handley MD [address] [place] [address] PCP - General INTERNAL MEDICINE 08/09/18
--- OUTSIDE RECORDS SUMMARY | 2024-07-16 14:10 | XMS_ITS | Patient Health Record ---
Author Organization [facility] Address [address] [place], [place] [address] Care Team Providers Care Control Panel Operator Crude Unit Name Role Phone Handley, Estela Unavailable Unavailable ANASTASIIA ORNELAS Unavailable [phone] CARLOS STEVE Unavailable [phone] Allergies No Known Allergies Reason For Referral No Information Immunizations Vaccine Route Administration Date Status Comme nts Influenza, high dose seasonal Unknown 02/12/2023 Admini stered Vital Signs Height-cm 167.64 cm 11/29/2023 Weight-kg 90.72 kg 11/29/2023 Height 66.00 in 11/29/2023 Weight 200 lbs 11/29/2023 BMI 32.28 kg/m2 11/29/2023 Encounters Encounter Location Date Provider Diagnosis [facility] [address] [place], [place] [id number] 07/26/2023 CARLOS STEVE Other hammer toe(s) (acquired), right foot M20.41 ; Tinea unguium B35.1 ; Other hammer toe(s) (acquired), left foot M20.42 ; Pain in right toe(s) M79.674 ; Pain in left toe(s) M79.675 ; Pain in right foot M79.671 ; Pain in left foot M79.672 ; 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[place] arteries of extremities, bilateral legs I70.203 and Acquired keratosis [keratoderma] palmaris et plantaris L85.[address] [id number] 09/27/2023 CARLOS STEVE Other hammer toe(s) (acquired), right foot M20.41 ; Tinea unguium B35.1 ; Other hammer toe(s) (acquired), left foot M20.42 ; Pain in right toe(s) M79.674 ; Pain in left toe(s) M79.675 ; Pain in right foot M79.671 ; Pain in left foot M79.672 ; 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[place] arteries of extremities, bilateral legs I70.203 and Acquired keratosis [keratoderma] palmaris et plantaris L85.[address] [id number] 11/29/2023 CARLOS STEVE Other hammer toe(s) (acquired), right foot M20.41 ; Tinea unguium B35.1 ; Other hammer toe(s) (acquired), left foot M20.42 ; Pain in right toe(s) M79.674 ; Pain in left toe(s) M79.675 ; Pain in right foot M79.671 ; Pain in left foot M79.672 ; 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[place] arteries of extremities, bilateral legs I70.203 and Acquired keratosis [keratoderma] palmaris et plantaris L85.[address] [id number] 01/31/2024 CARLOS STEVE Other hammer toe(s) (acquired), right foot M20.41 ; Tinea unguium B35.1 ; Other hammer toe(s) (acquired), left foot M20.42 ; Pain in right toe(s) M79.674 ; Pain in left toe(s) M79.675 ; Pain in right foot M79.671 ; Pain in left foot M79.672 ; 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[place] arteries of extremities, bilateral legs I70.203 and Acquired keratosis [keratoderma] palmaris et plantaris L85.[address] [id number] 04/10/2024 CARLOS STEVE Other hammer toe(s) (acquired), right foot M20.41 ; Tinea unguium B35.1 ; Other hammer toe(s) (acquired), left foot M20.42 ; Pain in right toe(s) M79.674 ; Pain in left toe(s) M79.675 ; Pain in right foot M79.671 ; Pain in left foot M79.672 ; 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[place] arteries of extremities, bilateral legs I70.203 and Acquired keratosis [keratoderma] palmaris et plantaris L85.[address] [id number] 05/22/2024 ANASTASIIA ORNELAS Tinea unguium B35.1 ; Pain in right foot M79.671 ; Pain in left foot M79.672 ; Atherosclerosis of [place] arteries of extremities with intermittent claudication, bilateral [...] toe(s) (ICD-10 - M79.674) 05/22/2024 Atherosclerosis of [place] arteries of extremities with intermittent claudication, bilateral [...] (ICD-10 - M79.672) 07/26/2023 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[place] arteries of extremities, bilateral legs (ICD-10 - I70.203) Patient educated on risks and aggravating factors of PVD, including conservative treatment options such as a diet and exercise regimen to aid in slowing progression of vascular disease 09/27/2023 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[place] arteries of extremities, bilateral legs (ICD-10 - I70.203) Patient educated on risks and aggravating factors of PVD, including conservative treatment options such as a diet and exercise regimen to aid in slowing progression of vascular disease 11/29/2023 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[place] arteries of extremities, bilateral legs (ICD-10 - I70.203) Patient educated on risks and aggravating factors of PVD, including conservative treatment options such as a diet and exercise regimen to aid in slowing progression of vascular disease 01/31/2024 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[place] arteries of extremities, bilateral legs (ICD-10 - I70.203) Patient educated on risks and aggravating factors of PVD, including conservative treatment options such as a diet and exercise regimen to aid in slowing progression of vascular disease 04/10/2024 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[place] arteries of extremities, bilateral legs (ICD-10 - [...] Of Treatment Next Appt Details Provider Name:ANASTASIIA CAALMARELNEMoisés, 03:20:00 PM, [address] [place] [address], [phone], Insurance Providers Payer Name Payer Address Payer Phone Subscriber Number Group Number Insured Name Patient Relationship to Insured Coverage Start Date Coverage End Date Medicare Part B [place] [address] [place] [address] [id number] KATIE CRUZ Self - patient is the insured [facility] ([facility] ATTN CLAIMS [address] [place] [address] [id number] KATIE CRUZ Self - patient is the insured 4
--- OUTSIDE RECORDS SUMMARY | 2024-07-16 14:10 | XMS_ITS | Encounter Summary ---
Author Organization [facility] Address [address] [place] [address] Care Team Providers Care Hole Filler Name Role Phone Leticia Handley MD Primary Care Provider [phone] Nilesh Mojica DO Unavailable Enoc Sheridan PA-C Unavailable Encounter Details Date Type Department Care Team (Late st Contact Info) Description 12/06/2016 [facility] Outpatient Visit [facility] Orthopedics - Radiology [address] [place] [address] Nilesh Mojica [address] [address] Social History Tobacco Use Types Packs/Day Years Used Date Smoking Tobacco: Never Smokeless Tobacco: Never Sex and Gender Information Value Date Recorded Sex Assigned at Not on file Gender Identity Not on file Sexual Orientation Not on file documented as of this encounter Plan of Treatment Upcoming Encounters Date Type Department Care Team (Late st Contact Info) Description 03/09/2025 10:40 AM OIL SPOT WASHER Office Visit [facility] Orthopedics [address] [address] Nilesh oMjica [address] [address] documented as of this encounter Visit Diagnoses Not on filedocumented in this encounter Care Teams Hole Filler Relationship Specialty Start Date End Date Leticia Handley MD PCP - General Internal Medicine 12/06/16 Nilesh Mojica DO Orthopedic Surgery 12/06/16 Enoc Sheridan PA-C [address] [place] [address] Physician Merchandise Marker Physician Merchandise Marker 03/13/17 documented as of this encounter
--- OUTSIDE RECORDS SUMMARY | 2024-07-16 14:10 | XMS_ITS | Clinical Summary ---
Author Organization [facility] Address [address] [place] [address] Care Team Providers Care Mass Spectroscopist Name Role Phone Leticia Handley MD Primary Care Provider [phone] Nilesh Mojica DO Unavailable Enoc Sheridna PA-C Unavailable [phone] Source Comments [facility],non-owned Affiliates and Associated Physician Practices is amultiple site organization consisting of ambulatory clinics and hospital sitesin [place], [place], [place] and [place]. This disclosure is being madepursuant to the Care Everywhere program and may not contain all information available regarding this patient. Last updated 18.[facility] [place] [employer] Allergies No known active allergies Medications * [...] Contact Info) Description 03/09/2025 10:40 AM MAIL MANAGER Office Visit [facility] Health Orthopedics [address], [address] [address] Nilesh Mojica DO [facility] Medical [address] [address] Health Maintenance Due Date Last [...] complete this topic MENINGOCOCCAL (Group B) VACCINE SHARED DECISION-MAKING Aged Out No longer eligible based on patient's age to complete this topic MENINGOCOCCAL GROUPS A/C/Y/W VACCINE Aged Out No longer eligible based on patient's age to complete this topic Medical Devices Implanted Type Area Pre K Teacher Device Identifier Shelf Expiration Date Model / Serial / Lot Stem Tlr Inbone Ii 1 Lg 10mm Ankl Implanted:Qty : 1 on 03/08/2017 by Nilesh Mojica DO at [facility] Left: Ankle [employer] Inc 12/07/2023 [id number] / / [id number] 4 Long Tibial Tray Implanted:Qty : 1 on 03/08/2017 by Nilesh Mojica DO at [facility] Left: Ankle [employer] 01/09/2025 [id number] / / [id number] Cmpnt Tlr Inbone 3 Dome Ankl Sulcus Implanted:Qty : 1 on 03/08/2017 by Nilesh Mojica DO at [facility] Left: Ankle [employer] 12/09/2024 [id number] / / [id number] Infinity Poly Insert Implanted:Qty : 1 on 03/08/2017 by Nilesh Mojica DO at [facility] Left: Ankle [employer] 10/22/2024 [id number] / / [id number] Screw Qckfix Kyler Canc 4.0 X 46 Implanted:Qty : 1 on 03/08/2017 by Nilesh Mojica DO at [facility] Left: Ankle Arthrex Inc [id number] / / Plate 61mm 3 Hl Hk Lck Ss Ft/Ankl Mdl Implanted:Qty : 1 on 03/08/2017 by Nilesh Mojica DO at [facility] Left: Ankle [employer] Inc [id number] / / Screw 3.5mm 38mm T15 Hexalobe Ft Ankl Implanted:Qty : 1 on 03/08/2017 by Nilesh Mojica DO at [facility] Left: Ankle [employer]rex Inc [id number] / / Graft Bone Othblst Ii Dbm Canc 1cc Alg - [id number] Implanted:Qty : 1 on 03/08/2017 by Nilesh Mojica DO at [facility] Left: Ankle Integra [employer]iences 01/01/20192100-010 / [id number] / [id number] Explanted Type Area Pre K Teacher Device Identifier Shelf Expiration Date Model / Serial / Lot Jonathan Total Ank Replacement Explanted:Qty: 1 on 03/08/2017 at [facility] Left: Ankle [employer] Inc TOTAL ANKLE REPL MORE / / Screw Qckfix Kyler Canc 4.0 X 46 Explanted:Qty: 1 on 03/08/2017 by Nilesh Mojica DO at [facility] Left: Ankle Ar[employer]rex Inc [id number] PTS / / Advance Directives Documents on File Type Date Recorded Patient Director Of Nuclear Medicine Expl anation Adv Directive/Living Will/POA 03/12/2017 8:08 PM * Full Code (Latest Code Status on File) Date Activated Date Inactivated Comments 03/08/2017 12:28 PM 03/09/2017 4:41 PM Care Teams Mass Spectroscopist Relationship Specialty Start Date End Date Leticia Handley MD PCP - General Internal Medicine 12/06/16 Nilesh Mojica DO Orthopedic Surgery 12/06/16 Enoc Sheridan PA-C [address] [place] [address] Physician Forensic Computer Examiner Physician Forensic Computer Examiner 03/13/17
--- OUTSIDE RECORDS SUMMARY | 2024-07-16 14:10 | XMS_ITS | Clinical Summary ---
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 [...] placement 11/29/2016 Coronary artery disease invo lving akhiok coronary artery of akhiok heart without angina pectoris 08/14/2016 Overview (09/29/2016): Coronary artery disease involving akhiok coronary artery of akhiok heart with other form of angina pectoris [...] Type Department Care Team Description 06/27/2024 Telephone [facility] Cardiology [address] [place] [phone] Freeman Chavria MD 06/16/2024 Telephone [facility] Cardiology [address] [place] [phone] Freeman Chavira MD [facility] 05/19/2024 Telephone [facility] Cardiology [address] [place] [phone] Freeman Chavira MD from Last 3 Months Surgical History Surgery [...] Hypertension Hypertension Adiposity Obesity Sleep apnea CPAP [place] (myocardial infarction) (HCC) 2014 CAD (coronary artery disease) Parkinson's disease (HCC) Skin cancer Back Nonrheumatic aortic (valve) stenosis Type 2 diabetes mellitus (HCC) H /O CHF (congestive heart failure) (HCC) Cardiomyopathy (HCC) Chronic fatigue syndrome Arthritis [...] relatives? Three times a week 06/06/2022 Attends Religion Services Not on file 06/06 Active Member [...] place to sleep or slept in a correction (including now)? No 06/06/2022 Personal Safety Answer Date Recorded Getting School Help Needed Denies 05/05 Sex and Gender Information Value Date Recorded Sex Assigned at Not on file Legal Sex Male 12:29 AM NANOTECHNOLOGY ENGINEERING TECHNICIAN Gender Identity Not on file Sexual Orientation Not on file Obstetrics History Last Filed Vital Signs Vital Sign Reading Time Taken Comments Blood Pressure 99/62 04/10/2024 2:18 PM NANOTECHNOLOGY ENGINEERING TECHNICIAN Pulse 51 04/10/2024 2:18 PM NANOTECHNOLOGY ENGINEERING TECHNICIAN Temperature 36.8 C (98.2 F) 04/10/2024 2:18 PM NANOTECHNOLOGY ENGINEERING TECHNICIAN Respiratory Rate 18 04/10/2024 2:18 PM NANOTECHNOLOGY ENGINEERING TECHNICIAN Oxygen Saturation 97% 04/10/2024 2:18 PM NANOTECHNOLOGY ENGINEERING TECHNICIAN Inhaled Oxygen Concentration - - Weight 84.4 kg (186 lb) 04/10/2024 2:18 PM NANOTECHNOLOGY ENGINEERING TECHNICIAN Height 167.6 cm (5' 5.98 ) 04/10/2024 2:18 PM CS T Body Mass Index 30.04 04/10/2024 2:18 PM NANOTECHNOLOGY ENGINEERING TECHNICIAN Plan of Treatment Health Maintenance Due Date Last Done Comments Albumin Creatinine Ratio, Urine 1940 Dilated Eye Exam 1940 Foot Exam 1940 Hepatitis B Screening 1956 Zoster Vaccine (1 of 2) 1988 Well Visit 65+ 11/18/2003 DTaP/Tdap/Td Vaccine (1 - Tdap) 01/24/2012 2 Hemoglobin A1C 11/27/2022 05/30/2022 Fall Risk Assessment 06/16/2023 06/16/2022 eGFR 06/16/2023 06/16/2022, 01/2023, 06/14/2022, Additional history exists Influenza Vaccine (#1) 2024 9, 01/25/2018, 02/15/2017, Additional history exists Lipid Panel 08/01/2024 08/02/2023, 07/05, 05/24/2021, Additional history exists Depression Screening 09/17/2024 09/18/2023 Pneumococcal vaccine 65+ Completed 03/04/2015, 11/2012 Medical Devices Implanted Type Area Out Of School Hours Care Worker Device Identifier Shelf Expiration Date Model / Serial / Lot Ziggy Medical Plate Bone Low Profile 6 Hole H Shape Ti 115.102.06 - [id number] Implanted:Qty: 1 on 06/05/2022 by Nicolás Arevalo MD at [facility] Plate N/A: Sternum [employer] 115.102. 06 / / Ziggy Medical Plate Bone Low Profile 4 Hole Box Ti 115.103.04 - [id number] Implanted:Qty: 1 on 06/05/2022 by Nicolás Arevalo MD at [facility] N/A: Sternum [employer] 115.103. 04 / / Ziggy Medical Plate Bone Low Profile 6 Hole O Concave Ti 115.604.06 - [id number] Implanted:Qty: 1 on 06/05/2022 by Nicolás Arevalo MD at [facility] Plate N/A: Sternum [employer] 115.604. 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 Prosthetic Valve N/A: Heart [employer] 07/18/2024 [id number] / [id number] / Ziggy Medical Screw Bone Slf Drl Full Thread Locking 3.5x14mm Ti 100.035.14 - [id number] Implanted:Qty: 10 on 06/05/2022 by Nicolás Arevalo MD at [facility] Screw N/A: Sternum [employer] 100.035. 14 / / Ziggy Medical Screw Bone Slf Drl Full Thread Locking 3.5x16mm Ti 100.035.16 - [id number] Implanted:Qty: 6 on 06/05/2022 by Nicolás Arevalo MD at [facility] Screw N/A: Sternum [employer] 100.035. 16 / / Procedures Procedure Name Priority Date/Time Associated Diagnosis Comments POCT LIPID PANEL Routine 08/02/2023 10:2 9 AM CDT Coronary artery disease involving akhiok coronary artery of akhiok heart without angina pectoris EGFR Routine 06/16/2022 10:03 AM NANOTECHNOLOGY ENGINEERING TECHNICIAN HEMOGLOBIN A1C Routine 05/30/2022 12:59 PM NANOTECHNOLOGY ENGINEERING TECHNICIAN Preop testing Type 2 diabetes mellitus with other specified complication, without long-term current use of insulin (HCC) from Last 3 Months or Most Recently Relevant to Health Maintenance Results * POCT lipid panel (08/02/2023 10:29 AM CDT) Pathologist [facility] [place] Cholesterol, POC <100 mg/dL Comment:GLU = 133 HDL, POC <15 mg/dL Triglycerides, POC 70 mg/dL LDL Cholesterol POC 71 mg/dL Chol/HDL Ratio, POC N/A Non-HDL Cholesterol, POC N/A mg/dL Cholesterol Total, POC <100 mg/dL Capillary blood 08/02/2023 1 0:29 AM CDT us Rosales Watt MD POINT OF CARE TEST ORDER CHANEL Final Result * eGFR (06/16/2022 10:03 AM NANOTECHNOLOGY ENGINEERING TECHNICIAN) Pathologist [facility] [place] eGFR 67 mL/min/1. 73 m2 RYAN Comment: Interpretive Data Reference Interval Normal >/= [...] of Race in Diagnosing Kidney Disease, JASN 202). The CKD-EPI equation should not be used for patients with unstable renal function and has not been validated in children and those over 70. Current interpretive data was last reviewed 2021. Blood 06/16/2022 10:0 3 AM NANOTECHNOLOGY ENGINEERING TECHNICIAN 06/16/2022 10:03 AM NANOTECHNOLOGY ENGINEERING TECHNICIAN Nicolás Arevalo MD LAB BLOOD ORDERABLES Final Res ult Performing Organization Address City/[facility] Co de Phone Number RYAN LUX [address] [place] [address] * Hemoglobin A1c (05/30/2022 12:59 PM NANOTECHNOLOGY ENGINEERING TECHNICIAN) [facility] Hgb A1C 5.5 4.0 - 5.6 % RYAN LUX Estimated Average Glucose 111 mg/dL RYAN LUX Comment: The ADA recommends reporting an estimated Average Glucose (eAG) with all Hemoglobin A1c results using the equation derived from a study of 507 normal and diabetic adults. Minority populations were underrepresented and children were not included. (Diabetes Care 31:4551-2657, 2008). The eAG is not equivalent to a fasting glucose. Blood 05/30/2022 12:5 9 PM NANOTECHNOLOGY ENGINEERING TECHNICIAN 05/30/2022 1:03 PM NANOTECHNOLOGY ENGINEERING TECHNICIAN Nicolás Arevalo MD LAB BLOOD ORDERABLES Final Res ult RYAN LUX [id number] [address] [employer] [place], [place] [id number] from Last 3 Months or Most Recently Relevant to Health Maintenance Insurance MEDICARE [facility] MEDICARE SUPPLEMENT INSURANCE MEDICARE [facility] MEDICARE SUPPLEMENT MEDICARE [facility] MEDICARE SUPPLEMENT Advance Directives For more information, please contact: [phone] * Full Code (Latest Code Status on File) Date Activated Date Inactivated Comments 06/05/2022 2:49 PM 06/16/2022 5:28 PM Care Teams V Groove Cutter Relationship Specialty Start Date End Date Leticia Handley MD [address] [place] [address] PCP - General Internal Medicine 05/08/23
--- OUTSIDE RECORDS SUMMARY | 2024-07-16 14:10 | XMS_ITS | Referral Summary ---
Author Organization [facility] Address [address] [place] [address] Care Team Providers Care Passenger Solicitor Name Role Phone Leticia Handley MD Primary Care Provider [phone] Nilesh Mojica DO Unavailable Enoc Sheridan PA-C Unavailable [phone] Source Comments [facility],non-owned Affiliates and Associated Physician Practices is amultiple site organization consisting of ambulatory clinics and hospital sitesin [place], [place], [place] and [place]. This disclosure is being madepursuant to the Care Everywhere program and may not contain all information available regarding this patient. Last updated 18.[facility] Allergies No known active allergies Medications [...] st Contact Info) Description 03/09/2025 10:40 AM STATISTICAL PROGRAMMER Office Visit [facility] Orthopedics [address] [place] [address] Nilesh Mojica DO [address] [place] [address] Medical Devices Implanted Type Area Information Technology Audit Manager Device Identifier Shelf Expiration Date Model / Serial / Lot Stem Tlr Inbone Ii 1 Lg 10mm Ankl Implanted:Qty : 1 on 03/08/2017 by Nilesh Mojica DO at [facility] Left: Ankle [employer] 12/07/2023 [id number] / / [id number] Long Tibial Tray Implanted:Qty : 1 on 03/08/2017 by Nilesh Mojica DO at [facility] Left: Ankle [employer] 01/09/2025 [id number] / / [id number] Cmpnt Tlr Inbone 3 Dome Ankl Sulcus Implanted:Qty : 1 on 03/08/2017 by Nilesh Mojica DO at [facility] Left: Ankle [employer] 12/09/2024 [id number] / / [id number] Infinity Poly Insert Implanted:Qty : 1 on 03/08/2017 by Nilesh Mojica DO at [facility] Left: Ankle More [employer] Inc 10/22/2024 [id number] / / [id number] Screw Qckfix Kyler Canc 4.0 X 46 Implanted:Qty : 1 on 03/08/2017 by Nilesh Mojica DO at [facility] Left: Ankle Arthrex Inc [id number] / / Plate 61mm 3 Hl Hk Lck Ss Ft/Ankl Mdl Implanted:Qty : 1 on 03/08/2017 by Nilesh Mojica DO at [facility] Left: Ankle [employer] Inc AR-8943H-03 / / Screw 3.5mm 38mm T15 Hexalobe Ft Ankl Implanted:Qty : 1 on 03/08/2017 by Nilesh Mojica DO at [facility] Left: Ankle Ar[employer]rex Inc AR-8835-38 / / Graft Bone Othblst Ii Dbm Canc 1cc Alg - [id number] Implanted:Qty : 1 on 03/08/2017 by Nilesh Mojica DO at [facility] Left: Ankle Integra [employer]iences 01/01/2019-010 / [id number] / [id number] Explanted Type Area Information Technology Audit Manager Device Identifier Shelf Expiration Date Model / Serial / Lot Jonathan Total Ank Replacement Explanted:Qty: 1 on 03/08/[address] [facility] Left: Ankle [employer] Inc TOTAL ANKLE REPL MORE / / Screw Qckfix Kyler Canc 4.0 X 46 Explanted:Qty: 1 on 03/08/2017 by Nilesh Mojica DO at [facility] Left: Ankle Ar[employer] Inc AR-8740-46 PTS / / Advance Directives Documents on File Type Date Recorded Patient Manager Consumer Insights Expl anation Adv Directive/Living Will/POA 03/12/2017 8:08 PM * Full Code (Latest Code Status on File) Date Activated Date Inactivated Comments 03/08/2017 12:28 PM 03/09/2017 4:41 PM Care Teams Passenger Solicitor Relationship Specialty Start Date End Date Leticia Handley MD PCP - General Internal Medicine 12/06/16 Nilesh Mojica DO Orthopedic Surgery 12/06/16 Enoc Sheridan PA-C [address] [address] Physician Datastage Developer Physician Datastage Developer 03/13/17
--- OUTSIDE RECORDS SUMMARY | 2024-07-16 14:10 | XMS_ITS | Encounter Summary ---
Author Organization [facility] Healthcare Address [address] [place] [address] Care Team Providers Care Licensed Insurance Sales Agent Name Role Phone Leticia Handley MD Primary Care Provider [phone] Encounter Details Date Type Department Care Team (Late st Contact Info) Description 06/27/2024 Telephone [facility] Medical Group Cardiology [address] [place] [address] Freeman Chavira MD [facility] [address] Social History Tobacco Use Types [...] relatives? Three times a week 06/06/2022 Attends Mosque Services Not on file 06/06 Active Member [...] place to sleep or slept in a penitentiary (including now)? No 06/06/2022 Personal Safety Answer Date Recorded Getting School Help Needed Denies 05/05 Sex and Gender Information Value Date Recorded Sex Assigned at Not on file Legal Sex Male 12:29 AM LAND DEVELOPMENT PROJECT MANAGER Gender Identity Not on file Sexual Orientation Not on file documented as of this encounter Miscellaneous Notes * Telephone Encounter - Aicha Sheikh MA - 06/27/2024 1:12 PM CST Samples up front at the [facility] location, Bozena mckeon. DEVELOPMENT PROJECT MANAGER * Telephone Encounter - Kera Pelaez - 06/27/2024 12:36 PM CST Patient requesting samples of rivaroxaban (XARELTO) 20 mg. Contact [phone] DEVELOPMENT PROJECT MANAGER documented in this encounter Plan of Treatment Not on file documented as of this encounter Visit Diagnoses Not on filedocumented in this encounter Care Teams Licensed Insurance Sales Agent Relationship Specialty Start Date End Date Leticia Handley MD [address] [place] [address] PCP - General Internal Medicine 05/08/23 documented as of this encounter
--- OUTSIDE RECORDS SUMMARY | 2024-07-16 14:10 | XMS_ITS ---
Author Organization [facility] Address [address] [place], [place] [id number] Care Team Providers Care Swaging Machine Adjuster Name Role Phone Estela Handley Unavailable Unavailable CARLOS STEVE Unavailable [phone] REASON FOR VISIT *General care Encounters Encounter Location Date Provider Diagnosis [facility] [address] [place], [place] [id number] 01/31/2024 CARLOS STEVE Other hammer toe(s) (acquired), right foot M20.41 ; Tinea unguium B35.1 ; Other hammer toe(s) (acquired), left foot M20.42 ; Pain in right toe(s) M79.674 ; Pain in left toe(s) M79.675 ; Pain in right foot M79.671 ; Pain in left foot M79.672 ; 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[place] arteries of extremities, bilateral legs I70.203 and [...] (ICD-10 - M79.672) 01/31/2024 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[place] arteries of extremities, bilateral legs (ICD-10 - [...] OTC and prescription treatments. 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[place] arteries of extremities, bilateral legs Patient educated [...] Months, Reason: Provider Name:ANASTASIIA ORNELAS, 03:20:00 PM, [address] [place] [address], [id number], Progress Notes * KATIE CRUZDOB:1940 (83 yo M)Acc No.[id number]:01/31/2024 Patient: KATIE HOGAN Provider: Fara STEVE :1940 A ge:83 Y S ex:Male Date:01/31/2024 Address: [place] [id number] Subjective: * Chief Complaints: * 1 . [...] Patient denies c hest pain, history of UT, irregular heartbeat. M usculoskeletal: Patient complains of [...] M79.672 8 . U nspecified atherosclerosis of [place] arteries of extremities, bilateral legs - I70.203 [...] were emphasized. 3. U nspecified atherosclerosis of [place] arteries of extremities, bilateral legs Notes: Patient [...] LESIONS, 2 TO 4, Modifiers: Q8 , 19815 DEBRIDE NAIL, 6 OR MORE, Modifiers: 59 , Q8 * Follow Up: 3 Months * Billing Information: * Visit Code: * Procedure Codes: 37041 TRIM SKIN LESIONS, 2 TO 4. Modifiers: Q8 87433 DEBRIDE NAIL, 6 OR MORE. Modifiers: 59, Q8 * Sign off status: Completed true * Provider: Fara STEVE Date: 0 01/31/2024 Generated for Joseph jang/Triny/Enzo on: 0 07/16/2024 02:10 PM CDT History [...]
--- OUTSIDE RECORDS SUMMARY | 2024-07-16 14:11 | XMS_ITS ---
Author Organization [facility] Address [address] [place], [place] [address] Care Team Providers Care Quantitative Consultant Name Role Phone Ender Estela Unavailable Unavailable ANASTASIIA ORNELAS Unavailable [phone] Allergies No Known Allergies REASON FOR VISIT Patient presents for at-risk foot care . The patient has painful toenails and calluses that are causing difficulty with ambulation and shoegear. 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 Provider Name:ANASTASIIA ORNELAS, 03:20:00 PM, [address] [place] [address], [id number], Progress Notes * KATIE CRUZDOB:1940 (83 yo M)Acc No.[id number]:05/22/2024 Patient: KATIE HOGAN Provider: Whitney Ornelas DPM :1940 A ge:83 Y S ex:Male Date:05/22/2024 Address:[address] [place] [address] Subjective: * Chief Complaints: * Glen[place] rm [...] - M79.672 4 . 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 Modifiers: Q8 12922 DEBRIDE NAIL, 6 OR MORE. Modifiers: 59, Q8 * ERCIAL CREDIT LEAD Sign off status: Completed true * Provider: Whitney Ornelas DPM Date: 0 05/22/2024 Generated for Joseph Gordon/Enzo on: 0 07/16/2024 02:10 PM CDT History [...]
--- OUTSIDE RECORDS SUMMARY | 2024-07-16 14:11 | XMS_ITS | Encounter Summary ---
Author Organization [facility] Address [address] [place] [address] Care Team Providers Care Glass Robot Operator Name Role Phone Leticia Handley MD Primary Care Provider [phone] Karrie Mcgregor DO Primary Care Provide r Leticia Handley MD Primary Care Provider [phone] Encounter Details Date Type Department Care Team (Late st Contact Info) Description 08/15/2016 Orders Only [facility] ProviderNila MD [address] [place] [address] Social History Tobacco Use Types Packs/Day Years Used Date Smoking Tobacco: Never Alcohol Use Standard Drinks/Week Comments Yes 0 (1 standard drink = 0.6 oz pur e alcohol) Sex and Gender Information Value Date Recorded Sex Assigned at Not on file Legal Sex Male 12:29 AM SENIOR TECHNICAL TRAINER Gender Identity Not on file Sexual Orientation [...] on filedocumented in this encounter Care Teams Glass Robot Operator Relationship Specialty Start Date End Date Leticia Handley MD [address] [place] [address] PCP - General 08/11/16 03/21/23 Karrie Mcgregor DO [address] [place] [address] PCP - General Psychiatry 03/22/23 05/07/23 Leticia Handley MD [address] [place] [address] PCP - General Internal Medicine 05/08/23 documented as of this encounter
--- OUTSIDE RECORDS SUMMARY | 2024-07-16 14:11 | XMS_ITS | Encounter Summary ---
Author Organization [facility] Healthcare Address [address] [place] [address] Care Team Providers Care Slaughterer Religious Ritual Name Role Phone Leticia Handley MD Primary Care Provider [phone] Karrie Mcgregor DO Primary Care Provide r Leticia Handley MD Primary Care Provider [phone] Encounter Details Date Type Department Care Team (Late st Contact Info) Description 04/22/2019 Telephone [facility] Radiology [address] [place] [address] Steff Shah, RT Social History Tobacco Use Types Packs/Day Years Used Date Smoking Tobacco: Never Smokeless Tobacco: Never Alcohol Use Standard Drinks/Week Comments Yes 0 (1 standard drink = 0.6 oz pur e alcohol) Sex and Gender Information Value Date Recorded Sex Assigned at Not on file Legal Sex Male 12:29 AM WEIGHT REDUCING TECHNICIAN Gender Identity Not on file Sexual Orientation Not on file documented as of this encounter Plan of Treatment Not on file documented as of this encounter Visit Diagnoses Not on filedocumented in this encounter Care Teams Slaughterer Religious Ritual Relationship Specialty Start Date End Date Leticia Handley MD [address] [place] [address] PCP - General 08/11/16 03/21/23 Karrie Mcgregor DO [address] [place] [address] PCP - General Psychiatry 03/22/23 05/07/23 Leticia Handley MD [address] [place] [address] PCP - General Internal Medicine 05/08/23 documented as of this encounter
--- OUTSIDE RECORDS SUMMARY | 2024-07-16 14:11 | XMS_ITS | Patient Health Summary ---
Author Organization [facility] Address [address] [place] [address] Care Team Providers Care Improvement Analyst Name Role Phone Leticia Handley MD Primary Care Provider [phone] Nilesh Mojica DO Unavailable [phone] Enoc Sheridan PAMonieC Unavailable [phone] Note from [facility],non-owned Affiliates and Associated Physician Practices is amultiple site organization consisting of ambulatory clinics and hospital sitesin [place], [place], [place] and [place]. This disclosure is being madepursuant to the Care Everywhere program and may not contain all information available regarding this patient. Last updated 18.[facility] Allergies No known active allergies Medications * [...] PM CDT Medical Devices Implanted Type Area Program Manager Slp Device Identifier Shelf Expiration Date Model / Serial / Lot Stem Tlr Inbone Ii 1 Lg 10mm Ankl Implanted:Qty : 1 on 03/08/2017 by Nilesh Mojica DO at [facility] Left: Ankle PipelineDB 12/07/2023 [id number] / / [id number] 4 Long Tibial Tray Implanted:Qty : 1 on 03/08/2017 by Nilesh Mojica DO at [facility] Left: Ankle PipelineDB 01/09/2025 [id number] / / [id number] Cmpnt Tlr Inbone 3 Dome Ankl Sulcus Implanted:Qty : 1 on 03/08/2017 by Nilesh Mojica DO at [facility] Left: Ankle PipelineDB 12/09/2024 [id number] / / [id number] Infinity Poly Insert Implanted:Qty : 1 on 03/08/2017 by Nilesh Mojica DO at [facility] Left: Ankle PipelineDB 10/22/2024 [id number] / / [id number] Screw Qckfix Kyler Canc 4.0 X 46 Implanted:Qty : 1 on 03/08/2017 by Nilesh Mojica DO at [facility] Left: Ankle Arthrex Inc [id number] / / Plate 61mm 3 Hl Hk Lck Ss Ft/Ankl Mdl Implanted:Qty : 1 on 03/08/2017 by Nilesh Mojica DO at [facility] Left: Ankle Arthrex Inc [id number] / / Screw 3.5mm 38mm T15 Hexalobe Ft Ankl Implanted:Qty : 1 on 03/08/2017 by Nilesh Mojica DO at [facility] Left: Ankle Arthrex Inc [id number] / / Graft Bone Othblst Ii Db Canc 1cc Algrf - [id number] Implanted:Qty : 1 on 03/08/2017 by Nilesh Mojica DO at [facility] Left: Ankle Integra Neurosciences 01/01/2019-010 / [id number] / [id number] Explanted Type Area Program Manager Slp Device Identifier Shelf Expiration Date Model / Serial / Lot Jonathan Total Ank Replacement Explanted:Qty: 1 on 03/08/2017 at [facility] Left: Ankle Zettics Inc TOTAL ANKLE REPL MORE / / Screw Qckfix Kyler Canc 4.0 X 46 Explanted:Qty: 1 on 03/08/2017 by Nilesh Mojica DO at [facility] Left: Ankle Arthrex Inc [id number] PTS / [...] Left 3Vw or More (03/10/2024 12:34 PM TECHNICAL SERVICE SPECIALIST) Only the most recent of13 resultswithin the time period is included. Narrative [facility] - 03/10/2024 12:34 PM TECHNICAL SERVICE SPECIALIST Please see progress note in Epic for results. Nilesh Mojica DO DIAGNOSTIC IMAGING O RDERABLES [facility] * IMAGING/RADIOLOGY/XRAY RESULTS ORDER (03/12/2017 8:08 PM TECHNICAL SERVICE SPECIALIST) Only the most recent of2 resultswithin the time period is included. Anatomical Region Laterality Modality Other Narrative 03/12/2017 8:08 PM TECHNICAL SERVICE SPECIALIST Ordered by an unspecified provider. Scanned Document IMAGING * CARDIAC STRESS TEST ORDER (03/12/2017 8:08 PM TECHNICAL SERVICE SPECIALIST) Narrative 03/12/2017 8:08 PM TECHNICAL SERVICE SPECIALIST Ordered by an unspecified provider. Scanned Document CARDIAC SERVICES ORD ERABLES * CARDIAC ECHOCARDIOGRAM COMPLETE ORDER (03/12/2017 8:08 PM TECHNICAL SERVICE SPECIALIST) Narrative 03/12/2017 8:08 PM TECHNICAL SERVICE SPECIALIST Ordered by an unspecified provider. Scanned Document ECHO ORDERABLES * CARDIAC PROCEDURE ORDER (03/12/2017 8:08 PM TECHNICAL SERVICE SPECIALIST) Narrative 03/12/2017 8:08 PM TECHNICAL SERVICE SPECIALIST Ordered by an unspecified provider. Scanned Document CARDIAC SERVICES ORD ERABLES * CARDIAC EKG ORDER (03/12/2017 8:06 PM TECHNICAL SERVICE SPECIALIST) Narrative 03/12/2017 8:06 PM TECHNICAL SERVICE SPECIALIST Ordered by an unspecified provider. Scanned Document CARDIAC SERVICES ORD ERABLES * CBC W AUTO DIFFERENTIAL (02/26/2017 11:14 AM CDT) WBC 6.5 4.4 - 10.7 x10E9/L 02/26/2017 11:20 AM CDT [facility] WBC Corrected x10E9/L 02/26/2017 11:20 AM CDT [facility] RBC 4.43 3.80 - 5.40 x10E12/L 02/26/2017 11:20 AM CDT [facility] Hemoglobin 14.5 12.0 - 17.6 gm/dL 02/26/2017 11:20 AM CDT [facility] Hematocrit 41.7 35.2 - 51.7 % 02/26/2017 11:20 AM CDT [facility] MCV 94.1 80.7 - 98.3 fl 02/26/2017 11:20 AM CDT [facility] MCH 32.7 26.7 - 34.0 [...] 0 /100 WBC 02/26/2017 11:20 AM CDT [facility] Blood BLOOD SPECIMEN / Unknown Lab Venipuncture / Unknown 02/26/2017 11:14 AM CDT 02/26/2017 11:18 AM CDT Tristan Montiel MD LAB - HEMATOLOGY ORD ERABLES [facility] [address] [place] [address] * (ABNORMAL) BASIC METABOLIC PANEL (CALCIUM TOTAL) (02/26/2017 11:14 AM CDT) Glucose 89 74 - 106 mg/dL 02/26/2017 11:32 AM [facility] Sodium 144 136 - 145 mmol/L 02/26/2017 11:32 AM [facility] Potassium 3.9 3.5 - 5.1 mmol/L 02/26/2017 11:32 AM [facility] Chloride 109(H) 98 - 107 mmol/L 02/26/2017 11:32 AM [facility] CO2 28 22 - 31 mmol/L 02/26/2017 11:32 AM [facility] Calcium 8.5 8.5 - 10.1 mg/dL 02/26/2017 11:32 AM [facility] Anion Gap 7(L) 8 - 16 mmol/L 02/26/2017 11:32 AM [facility] BUN 15 7 - 21 mg/dL 02/26/2017 11:32 AM [facility] Creatinine 0.88 0.50 - 1.30 mg/dL 02/26/2017 11:32 AM [facility] eGFR by MDRD >60 mL/min/1.7 3m2 02/26/2017 11:32 AM T [facility] eGFR by MDRD >60 mL/min/1.7 3m2 02/26/2017 11:32 AM T [facility] Blood BLOOD SPECIMEN / Unknown Lab Venipuncture / Unknown 02/26/2017 11:14 AM CDT 02/26/2017 11:18 AM CDT Tristan Montiel MD LAB - CHEMISTRY TIFFANIE GRAMAJO [facility] [address] [place] [address] * CULTURE MSSA/MRSA (02/26/2017 10:59 AM CDT) Culture Negative for Staphylococcus aureus (MRSA/MSSA) LOVE 02/28/2017 6:21 AM CDT [facility] Microbiology SPECIMEN FROM NASAL FOSSAE / Unknown Collection / Unknown 02/26/2017 10:59 AM CDT 02/26/2017 11:11 AM CDT Nilesh Mojica DO LAB - MICROBIOLOGY O QUEENIE Performing Organization Address City/[facility]/ZIP Co de Phone Number [facility] [address] [place], [place] [address] [phone] * (ABNORMAL) URINALYSIS ROUTINE AUTO (02/26/2017 10:59 AM CDT) Color UA Yellow Straw, Yellow, Dark Yellow 02/26/2017 11:21 AM [facility] Clarity UA Clear 02/26/2017 11:21 AM T [facility] Specific [place] UA 1.015 1.005 - 1.030 02/26/2017 11:21 AM [facility] pH UA 6.5 5.0 - 8.0 pH 02/26/2017 11:21 AM [facility] Protein UA Negative Negative 02/26/2017 11:21 AM T [facility] Blood UA Negative Negative 02/26/2017 11:21 AM [facility] Leukocyte UA 1+(A) Negative 02/26/2017 11:21 AM [facility] Nitrite UA Negative Negative 02/26/2017 11:21 AM T [facility] Glucose UA Negative Negative 02/26/2017 11:21 AM [facility] Ketone UA Trace(A) Negative 02/26/2017 11:21 AM [facility] Bilirubin UA Negative Negative 02/26/2017 11:21 AM [facility] Urobilinogen UA 0.2 0.1 - 1.0 EU/dL 02/26/2017 11:21 AM CDT [facility] Urine URINE SPECIMEN OBTAINED BY CLEAN CATCH PROCEDURE / Unknown Collection / Unknown 02/26/2017 10:59 AM CDT 02/26/2017 11:10 AM CDT Nilesh Mojica DO LAB - URINALYSIS ORD ERABLES Performing Organization Address [facility] Co de Phone Number [address] [address] * URINALYSIS MICROSCOPIC ONLY (02/26/2017 10:59 AM CDT) WBC UA 2-5 0-2, 2-5 # /hpf 02/26/2017 11:36 AM CDT [facility] Epithelial Cell UA 0-2 0-2, 2-5 # /hpf 02/26/2017 11:36 AM CDT [facility] Urine URINE SPECIMEN OBTAINED BY CLEAN CATCH PROCEDURE / Unknown Collection / Unknown 02/26/2017 10:59 AM CDT 02/26/2017 11:10 AM CDT Nilesh Mojica DO LAB - URINALYSIS ORD QUIMBYBLES Performing Organization Address [facility] de Phone Number [address] [address] * CT LOWER EXTREMITY NON CONTRAST LEFT [...] Nilesh Mojica DO CT ORDERABLES Care Teams Improvement Analyst Relationship Specialty Start Date End Date Leticia Handley MD PCP - General Internal Medicine 12/06/16 Nilesh Mojica DO Orthopedic Surgery 12/06/16 Enoc Sheridan PA-C [address] [place] [address] Physician Electrical Engineering Technologist Physician Electrical Engineering Technologist 03/13/17
== END 2024-07-16 12:52 | disposition home or self-care (01) ==
PROVIDERS: PCP Internal Medicine; Visit Provider Internal Medicine
DX: D50.9 Iron deficiency anemia, unspecified (principal)
CPT/HCPCS: 96365; 96366; J1756; J7050

== ENCOUNTER 2024-07-30 06:58 | Outpatient (CLI) | payer MEDICARE, SELFPAY ==
--- OUTSIDE RECORDS SUMMARY | 2024-07-30 07:01 | XMS_ITS | Clinical Summary ---
Author Organization [facility] [address] Address [address] [place] [address] Care Team Providers Care Baker Pie Name Role Phone Leticia Handley MD Primary Care Provider Allergies No known active allergies Medications brimonidine-pan loL (COMBIGAN) 0.2-0.5 % ophthalmic solution Administer 1 drop into affected eye(s) 2 (two) times a day 06/03/19 22 Active bimatoprost (Lumigan) 0.01 % ophthalmic drops Administer 1 drop into both eyes nightly 06/03/19 22 Active multivitamin capsule Take 1 capsule by mouth daily Active ascorbic acid (VITAMIN C) 1,000 mg tablet Take 1 tablet (1,000 mg total) by mouth daily Active aspirin 81 mg enteric coated tablet Take 1 tablet (81 mg total) by mouth daily 30 tablet 1 06/17/19 23 Active levothyroxine (SYNTHROID) 75 mcg tablet Take 1 tablet (75 mcg total) by mouth early childhood educator aide before breakfast 30 tablet 1 06/17/19 23 Active polyethylene glycol (MIRALAX) 17 gram packetIndication s:constipation Take 1 packet (17 g total) by mouth daily 20 packet 1 06/17/19 23 Active terazosin (HYTRIN) 10 mg capsule 08/08/19 23 Active vit A/C/E ac/ZnOx/cupric oxide (EYE VITAMIN AND MINERALS ORAL) Take by mouth A ctive atorvastatin (LIPITOR) 20 mg tablet TAKE 1 TABLET BY MOUTH EVERY DAY 90 tablet 1 05/06/20 23 Active timolol (TIMOPTIC) 0.5 % ophthalmic solution 1 drop 2 (two) times a day Active brimonidine (ALPHAGAN) 0.2 % ophthalmic solution 1 drop 3 (three) times a day Active carbidopa-levodo pa (SINEMET) 25-250 mg per tabletIndication s:Idiopathic Parkinsonism Take 2.5 tablets by mouth 3 (three) times a day 675 tablet 3 09/18/19 24 025 Active Additional Information Patient taking differently: 2 tabletoral 3 times daily, Indications: Idiopathic Parkinsonism, Reported on 03/13/[address] (PROTONIX) 40 mg EC tablet TAKE 1 TABLET BY MOUTH EVERY DAY 90 tablet 3 10/15/19 24 Active carbidopa-levodo pa (SINEMET) 25-100 mg per tabletIndication s:Parkinsonism Take 1 tablet by mouth 3 (three) times a day 270 tablet 3 01/02/20 24 025 Active pramipexole (MIRAPEX) 1 mg tablet Take 3 tablets (3 mg total) by mouth 3 (three) times a day 810 tablet 3 01/30/20 24 Active potassium chloride ER 10 mEq CR tablet TAKE 1 TABLET/CAPSULE (10 MEQ TOTAL) BY MOUTH DAILY 90 tablet 2 02/04/20 24 Active rasagiline (AZILECT) 0.5 mg tabletIndication s:Idiopathic Parkinsonism 1 tab qam 90 tablet 3 02/25/20 24 Active Additional Information Patient not taking.Reported on 03/13/2024 rivaroxaban (XARELTO) 20 mg tablet Take 1 tablet (20 mg total) by mouth daily with dinner 30 tablet 2 02/26/20 24 Active ferrous sulfate 325 mg (65 mg of elemental iron) tablet Take 1 tablet (325 mg total) by mouth 3 (three) times a day 01/08/20 24 Active furosemide (LASIX) 40 mg tablet TAKE 1 TABLET BY MOUTH EVERY DAY 90 tablet 2 05/05/20 24 Active midodrine (PROAMATINE) 5 mg tablet Take 1 tablet (5 mg total) by mouth 3 (three) times a day 270 tablet 1 07/18/19 25 Active midodrine (PROAMATINE) 5 mg tablet TAKE 1 TABLET BY MOUTH 3 TIMES A DAY BEFORE MEALS. 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 [...] placement 11/29/2016 Coronary artery disease invo lving nulato coronary artery of nulato heart without angina pectoris 08/14/2016 Overview (09/29/2016): Coronary artery disease involving nulato coronary artery of nulato heart with other form of angina pectoris [...] Type Department Care Team Description 06/27/2024 Telephone [facility] Cardiology [address] [place] [phone] Freeman Chavira MD 06/16/2024 Telephone [facility] Cardiology [address] [place] [phone] Freeman Chavira MD [facility] 05/19/2024 Telephone [facility] Cardiology [address] [place] [phone] Freeman Chavira MD from Last 3 [...] Hypertension Hypertension Adiposity Obesity Sleep apnea CPAP [place] (myocardial infarction) (HCC) 2014 CAD (coronary artery [...] relatives? Three times a week 06/06/2022 Attends Congregation Services Not on file 06/06 Active Member [...] place to sleep or slept in a retirement (including now)? No 06/06/2022 Personal Safety Answer Date Recorded Getting School Help Needed Denies 05/05 Sex and Gender Information Value Date Recorded Sex Assigned at Not on file Legal Sex Male 12:29 AM PIPE SMOKING MACHINE OFFBEARER Gender Identity Not on file Sexual Orientation Not on file Obstetrics History Last Filed Vital Signs Vital Sign Reading Time Taken Comments Blood Pressure 99/62 04/10/2024 2:18 PM PIPE SMOKING MACHINE OFFBEARER Pulse 51 04/10/2024 2:18 PM PIPE SMOKING MACHINE OFFBEARER Temperature 36.8 C (98.2 F) 04/10/2024 2:18 PM PIPE SMOKING MACHINE OFFBEARER Respiratory Rate 18 04/10/2024 2:18 PM PIPE SMOKING MACHINE OFFBEARER Oxygen Saturation 97% 04/10/2024 2:18 PM PIPE SMOKING MACHINE OFFBEARER Inhaled Oxygen Concentration - - Weight 84.4 kg (186 lb) 04/10/2024 2:18 PM PIPE SMOKING MACHINE OFFBEARER Height 167.6 cm (5' 5.98 ) 04/10/2024 2:18 PM CS T Body Mass Index 30.04 04/10/2024 2:18 PM PIPE SMOKING MACHINE OFFBEARER Plan of Treatment Health Maintenance Due Date Last Done Comments Albumin Creatinine Ratio, Urine 1938 Dilated Eye Exam 1938 Foot Exam 1938 Hepatitis B Screening 1956 Zoster Vaccine (1 of 2) 1988 Well Visit 65+ 11/18/2003 DTaP/Tdap/Td Vaccine (1 - Tdap) 01/24/2012 2 Hemoglobin A1C 11/27/2022 05/30/2022 Fall Risk Assessment 06/16/2023 06/16/2022 eGFR 06/16/2023 06/16/2022, /01/2023, 06/14/2022, Additional history exists Influenza Vaccine (#1) 2024 9, 01/25/2018, 02/15/2017, Additional history exists Lipid Panel 08/01/2024 08/02/2023, 07/05, 05/24/2021, Additional history exists Depression Screening 09/17/2024 09/18/2023 Pneumococcal vaccine 65+ Completed 03/04/2015, 11/2012 Medical Devices Implanted Type Area Anode Worker Device Identifier Shelf Expiration Date Model / Serial / Lot Zig[employer] Medical Plate Bone Low Profile 6 Hole H Shape Ti 115.102.06 - [id number] Implanted:Qty: 1 on 06/05/2022 by Nicolás Arevalo MD at [facility] Plate N/A: Sternum [employer] 115.102. 06 / / Ziggy Medical Plate Bone Low Profile 4 Hole Box Ti 115.103.04 - [id number] Implanted:Qty: 1 on 06/05/2022 by Nicolás Arevalo MD at [facility] Plate N/A: Sternum [employer] 115.103. 04 / / [employer] Medical Plate Bone Low Profile 6 Hole O Concave Ti 115.604.06 - [id number] Implanted:Qty: 1 on 06/05/2022 by Nicolás Arevalo MD at [facility] Plate N/A: Sternum [employer] 115.604. 06 / / [employer] Von-Tim ds Perimount Magna Ease 23mm Bioprosthesis [id number] - [id number] - [id number] Implanted:Qty: 1 on 06/05/2022 by Nicolás Arevalo MD at [facility] Prosthetic Valve N/A: Heart [employer] 07/18/2024 [id number] / [id number] / Ziggy Medical Screw Bone Slf Drl Full Thread Locking 3.5x14mm Ti 100.035.14 - [id number] Implanted:Qty: 10 on 06/05/2022 by Nicolás Arevalo MD at [facility] Screw N/A: Sternum [employer] 100.035. 14 / / Z[employer] Medical Screw Bone Slf Drl Full Thread Locking 3.5x16mm Ti 100.035.16 - [id number] Implanted:Qty: 6 on 06/05/2022 by Nicolás Arevalo MD at [facility] Screw N/A: Sternum [employer] 100.035. 16 / / Procedures Procedure Name Priority Date/Time Associated Diagnosis Comments POCT LIPID PANEL Routine 08/02/2023 10:2 9 AM CDT Coronary artery disease involving nulato coronary artery of nulato heart without angina pectoris EGFR Routine 06/16/2022 10:03 AM PIPE SMOKING MACHINE OFFBEARER HEMOGLOBIN A1C Routine 05/30/2022 12:59 PM PIPE SMOKING MACHINE OFFBEARER Preop testing Type 2 diabetes mellitus with [...] Final Result * eGFR (06/16/2022 10:03 AM PIPE SMOKING MACHINE OFFBEARER) Pathologist [facility] eGFR 67 mL/min/1. 73 m2 RYAN LUX [...] reviewed 2021. Blood 06/16/2022 10:0 3 AM PIPE SMOKING MACHINE OFFBEARER 06/16/2022 10:03 AM PIPE SMOKING MACHINE OFFBEARER Nicolás Arevalo MD LAB BLOOD ORDERABLES Final Res ult RYAN [address] [address] Department [place] [address] * Hemoglobin A1c (05/30/2022 12:59 PM PIPE SMOKING MACHINE OFFBEARER) Hgb A1C 5.5 4.0 - 5.6 % RYAN Estimated Average Glucose 111 mg/dL RYAN LUX Comment: The ADA recommends reporting an estimated Average Glucose (eAG) with all Hemoglobin A1c results using the equation derived from a study of 507 normal and diabetic adults. Minority populations were underrepresented and children were not included. (Diabetes Care 31:9245-0552, 2008). The eAG is not equivalent to a fasting glucose. Blood 05/30/2022 12:5 9 PM PIPE SMOKING MACHINE OFFBEARER 05/30/2022 1:03 PM PIPE SMOKING MACHINE OFFBEARER Nicolás Arevalo MD LAB BLOOD ORDERAB[place] [address] [address] Cintron Department of Laboratories [place], [place] [phone] from Last 3 Months or Most Recently Relevant to Health Maintenance Insurance MEDICARE [facility] MEDICARE SUPPLEMENT INSURANCE [place] [id number] MEDICARE [facility] MEDICARE SUPPLEMENT MEDICARE [facility] MEDICARE SUPPLEMENT Advance Directives For more information, please contact: [phone] * Full Code (Latest Code Status on File) Date Activated Date Inactivated Comments 06/05/2022 2:49 PM 06/16/2022 5:28 PM Care Teams Baker Pie Relationship Specialty Start Date End Date Leticia Handley MD [address] [place] [address] (work) PCP - General Internal Medicine 05/08/23
--- OUTSIDE RECORDS SUMMARY | 2024-07-30 07:01 | XMS_ITS | Referral Summary ---
Author Organization [facility] [address] [address] [place] [id number] Care Team Providers Care Nematology Teacher Name Role Phone Leticia Handley MD Primary Care Provider [phone] Encounters Date Type Department Care Team Description 06/27/2024 Telephone [facility] Medical [facility] Cardiology [address] [place] [address] [place] [phone] Freeman Chavira MD 06/16/2024 Telephone [facility] Cardiology [address] [place] [address] [place] [phone] Freeman Chavira MD samples 05/19/2024 Telephone [facility] Cardiology [address] [place] [address] [place] [phone] Freeman Chavira MD from Last 3 [...] 1 tablet (75 mcg total) by mouth can handler before breakfast 30 tablet 1 06/17/19 23 [...] 06/09/2019 Assessment & Plan (03/12/2024 1:31 PM LOCOMOTIVE OILER): 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 Three times a week 06/06/2022 Attends [employer] Not on file 06/06 Active Member [...] place to sleep or slept in a halfway (including now)? No 06/06/2022 Personal Safety Answer Date Recorded Getting School Help Needed Denies 05/05 Sex and Gender Information Value Date Recorded Sex Assigned at Not on file Legal Sex Male 12:29 AM LOCOMOTIVE OILER Gender Identity Not on file Sexual Orientation Not on file Last Filed Vital Signs Vital Sign Reading Time Taken Comments Blood Pressure 99/62 04/10/2024 2:18 PM LOCOMOTIVE OILER Pulse 51 04/10/2024 2:18 PM LOCOMOTIVE OILER Temperature 36.8 C (98.2 F) 04/10/2024 2:18 PM LOCOMOTIVE OILER Respiratory Rate 18 04/10/2024 2:18 PM LOCOMOTIVE OILER Oxygen Saturation 97% 04/10/2024 2:18 PM LOCOMOTIVE OILER Inhaled Oxygen Concentration - - Weight 84.4 kg (186 lb) 04/10/2024 2:18 PM LOCOMOTIVE OILER Height 167.6 cm (5' 5.98 ) 04/10/2024 2:18 PM CS T Body Mass Index 30.04 04/10/2024 2:18 PM LOCOMOTIVE OILER Plan of Treatment Not on file Medical Devices Implanted Type Area Telegraph Office Route Aide Device Identifier Shelf Expiration Date Model / Serial / Lot Ziggy Medical Plate Bone Low Profile 6 Hole H Shape Ti 115.102.06 - [id number] Implanted:Qty: 1 on 06/05/2022 by Nicolás Arevalo MD at [facility] Plate N/A: Sternum [employer] 115.102. 06 / / Ziggy Medical Plate Bone Low Profile 4 Hole Box Ti 115.103.04 - [id number] Implanted:Qty: 1 on 06/05/2022 by Nicolás Arevalo MD at [facility] Plate N/A: Sternum [employer] 115.103. 04 / / Ziggy Medical Plate Bone Low Profile 6 Hole O Concave Ti 115.604.06 - [id number] Implanted:Qty: 1 on 06/05/2022 by Nicolás Arevalo MD at [facility] Plate N/A: Sternum [employer] 115.604. 06 / / Bhatti Lifesciences Von-Tim ds Perimount Magna Ease 23mm Bioprosthesis [id number] - [id number] - [id number] Implanted:Qty: 1 on 06/05/2022 by Nicolás Arevalo MD at [facility] Prosthetic Valve N/A: Heart [employer] 07/18/2024 [id number] / [id number] / Ziggy Medical Screw Bone Slf Drl Full Thread Locking 3.5x14mm Ti 100.035.14 - [id number] Implanted:Qty: 10 on 06/05/2022 by Nicolás Arevalo MD at [facility] Screw N/A: Sternum [employer] 100.035. 14 / / Ziggy Medical Screw Bone Slf Drl Full Thread Locking 3.5x16mm Ti 100.035.16 - [id number] Implanted:Qty: 6 on 06/05/2022 by Nicolás Arevalo MD at [facility] Screw N/A: Sternum [employer] 100.035. 16 / / Procedures Procedure Name Priority Date/Time Associated Diagnosis Comments POCT LIPID PANEL Routine 08/02/2023 10:2 9 AM CDT Coronary artery disease involving [place] coronary artery of [place] heart without angina pectoris EGFR Routine 06/16/2022 10:03 AM LOCOMOTIVE OILER HEMOGLOBIN A1C Routine 05/30/2022 12:59 PM LOCOMOTIVE OILER Preop testing Type 2 diabetes mellitus with [...] Final Result * eGFR (06/16/2022 10:03 AM LOCOMOTIVE OILER) Pathologist [facility] [place] eGFR 67 [...] reviewed 2021. Blood 06/16/2022 10:0 3 AM LOCOMOTIVE OILER 06/16/2022 10:03 AM LOCOMOTIVE OILER Nicolás Arevalo MD LAB BLOOD ORDERABLES Final Res ult RYAN [address] [address] Department [place] [address] * Hemoglobin A1c (05/30/2022 12:59 PM LOCOMOTIVE OILER) Pathologist [facility] [place] Hgb A1C 5.5 4.0 - 5.6 % RYAN Estimated Average Glucose 111 mg/dL RYAN Comment: The ADA recommends reporting an estimated Average Glucose (eAG) with all Hemoglobin A1c results using the equation derived from a study of 507 normal and diabetic adults. Minority populations were underrepresented and children were not included. (Diabetes Care 31:7231-1214, 2008). The eAG is not equivalent to a fasting glucose. Blood 05/30/2022 12:5 9 PM LOCOMOTIVE OILER 05/30/2022 1:03 PM LOCOMOTIVE OILER Nicolás Arevalo MD LAB BLOOD [place] [address] [address] Department [place] [address] from Last 3 Months or Most Recently Relevant to Health Maintenance Insurance MEDICARE [facility] MEDICARE SUPPLEMENT INSURANCE MEDICARE [facility] [place] [address] [place] [id number] MEDICARE [facility] [place] [address] [place] [id number] Advance Directives For more information, please contact: [phone] * Full Code (Latest Code Status on File) Date Activated Date Inactivated Comments 06/05/2022 2:49 PM 06/16/2022 5:28 PM Care Teams Nematology Teacher Relationship Specialty Start Date End Date Leticia Handley MD [address] [place] [address] PCP - General Internal Medicine 05/08/23
--- OUTSIDE RECORDS SUMMARY | 2024-07-30 07:02 | XMS_ITS | Encounter Summary ---
Author Organization [facility] Address [address] [facility] [place] [address] Care Team Providers Care Legal Services Manager Name Role Phone Leticia Handley MD Primary Care Provider Nilesh Mojica DO Unavailable Enoc Sheridan PA-C Unavailable Encounter Details Date Type Department Care Team (Late st Contact Info) Description 12/06/2016 [facility] Outpatient Visit [facility] Orthopedics - Radiology [address] [place] [address] Nilesh Mojica [address] [phone] Social History Tobacco Use Types Packs/Day Years Used Date Smoking Tobacco: Never Smokeless Tobacco: Never Sex and Gender Information Value Date Recorded Sex Assigned at Not on file Gender Identity Not on file Sexual Orientation Not on file documented as of this encounter Plan of Treatment Upcoming Encounters Date Type Department Care Team (Late st Contact Info) Description 03/09/2025 10:40 AM CONTACT ACID PLANT OPERATOR Office Visit [facility] Orthopedics [address] [phone] Nilesh Mojica [address] [address] documented as of this encounter Visit Diagnoses Not on filedocumented in this encounter Care Teams Legal Services Manager Relationship Specialty Start Date End Date Leticia Handley MD PCP - General Internal Medicine 12/06/16 Nilesh Mojica DO Orthopedic Surgery 12/06/16 Enoc Sheridan PA-C [address] [place] [address] Physician Manager Of Business Operations Physician Manager Of Business Operations 03/13/17 documented as of this encounter
--- OUTSIDE RECORDS SUMMARY | 2024-07-30 07:02 | XMS_ITS | Encounter Summary ---
Author Organization [facility] Address [address] [place] [address] Care Team Providers Care Nuclear Fuels Reclamation Engineer Name Role Phone Leticia Handley MD Primary Care Provider [phone] Karrie Mcgregor DO Primary Care Provide r Leticia Handley MD Primary Care Provider [phone] Encounter Details Date Type Department Care Team (Late st Contact Info) Description 08/15/2016 Orders Only [facility] ProviderNila MD [address] [place] [address] Social History Tobacco Use Types Packs/Day Years Used Date Smoking Tobacco: Never Alcohol Use Standard Drinks/Week Comments Yes 0 (1 standard drink = 0.6 oz pur e alcohol) Sex and Gender Information Value Date Recorded Sex Assigned at Not on file Legal Sex Male 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
--- OUTSIDE RECORDS SUMMARY | 2024-07-30 07:02 | XMS_ITS | Clinical Summary ---
Author Organization [facility] Address [address] [place] [address] Care Team Providers Care Revenue Accounting Manager Name Role Phone Leticia Handley MD Primary Care Provider [phone] Allergies No known active allergies Medications clopidogrel [...] opa (SINEMET) 25-250 MG tabletIndicatio ns:Parkinson's disease ([facility]) TAKE 1 TABLET BY MOUTH 4 TIMES DAILY 360 tablet 3 03/24/2022 Active pramipexole (MIRAPEX) 1 MG tabletIndicatio ns:Parkinson's disease ([facility]) Take 3 tablets (3 mg [...] artery disease of n ative artery of [place] heart with stable angina pectoris 08/14/2016 Overview (05/27/2019): Overview: Coronary artery disease involving [place] coronary artery of [place] heart with other form of angina pectoris Dyslipidemia associated with type 2 diabetes mellitus ([facility]) 11/15/2015 Overview (05/27/2019): Overview: DM type 2 with diabetic dyslipidemia Hypertensive heart disease w ith congestive heart failure ([facility]) 08/02/2015 Overview (05/27/2019): Overview: Hypertensive heart disease with diastolic heart failure YANET on CPAP 08/02/2015 Overview (05/27/2019): Overview: YANET on CPAP Benign hypertension 04/26/2015 Overview (05/27/2019): Overview: HTN (hypertension), benign Dyslipidemia 04/26/2015 Overview (05/27/2019): Overview: Mixed dyslipidemia Cardiomyopathy ([facility]) 04/26/2015 Overview (05/27/2019): Overview: Cardiomyopathy Myocardial infarction ([facility]) 04/26/20 15 Overview (05/27/2019): Overview: [...] CDT Respiratory Rate 18 07/13/2021 2:45 PM TEST DATA DEVELOPER Oxygen Saturation 96% 12/16/2021 8:52 AM CDT [...] age to complete this topic Insurance MEDICARE [facility] MEDICARE [facility] Care Teams Revenue Accounting Manager Relationship Specialty Start Date End Date Leticia Handley MD [address] [place] [address] PCP - General INTERNAL MEDICINE 08/09/18
--- OUTSIDE RECORDS SUMMARY | 2024-07-30 07:02 | XMS_ITS | Encounter Summary ---
Author Organization [facility] Address [address] [place] [address] Care Team Providers Care Vulcan Crewmember Name Role Phone Leticia Handley MD Primary Care Provider [phone] Karrie Mcgregor DO Primary Care Provide r Leticia Handley MD Primary Care Provider [phone] Encounter Details Date Type Department Care Team (Late st Contact Info) Description 04/22/2019 Telephone [facility] Radiology [address] [place] [address] Steff Shah, RT Social History Tobacco Use Types Packs/Day Years Used Date Smoking Tobacco: Never Smokeless Tobacco: Never Alcohol Use Standard Drinks/Week Comments Yes 0 (1 standard drink = 0.6 oz pur e alcohol) Sex and Gender Information Value Date Recorded Sex Assigned at Not on file Legal Sex Male 12:29 AM PALEOBOTANIST Gender Identity Not on file Sexual Orientation Not on file documented as of this encounter Plan of Treatment Not on file documented as of this encounter Visit Diagnoses Not on filedocumented in this encounter Care Teams Vulcan Crewmember Relationship Specialty Start Date End Date Leticia Handley MD [address] [place] [address] PCP - General 08/11/16 03/21/23 Karrie Mcgregor DO [address] [place] [address] PCP - General Psychiatry 03/22/23 05/07/23 Leticia Handley MD [address] [place] [address] PCP - General Internal Medicine 05/08/23 documented as of this encounter
--- OUTSIDE RECORDS SUMMARY | 2024-07-30 07:02 | XMS_ITS | Clinical Summary ---
Author Organization [facility] Address [address] [place] [address] Care Team Providers Care Limited Radiology Technician Name Role Phone Leticia Handley MD Primary Care Provider [phone] Nilesh Mojica DO Unavailable Enoc Sheridan PA-C Unavailable [phone] Source Comments [facility],non-owned Affiliates and Associated Physician Practices is amultiple site organization consisting of ambulatory clinics and hospital sitesin [place], [place], [place] and [place]. This disclosure is being madepursuant to the Care Everywhere program and may not contain all information available regarding this patient. Last updated 18.[facility] [employer] Allergies No known active allergies Medications * [...] st Contact Info) Description 03/09/2025 10:40 AM COMPLAINT OPERATOR Office Visit [facility] Health Orthopedics [address], [address] [address] Nilesh Mojica DO [facility] [address] [address] Health Maintenance Due Date Last [...] this topic Medical Devices Implanted Type Area Composite Bond Technician Device Identifier Shelf Expiration Date Model / Serial / Lot Stem Tlr Inbone Ii 1 Lg 10mm Ankl Implanted:Qty : 1 on 03/08/2017 by Nilesh Mojica DO at [facility] Left: Ankle [employer] 12/07/2023 [id number] / / [id number] 4 Long Tibial Tray Implanted:Qty : 1 on 03/08/2017 by Nilesh Mojica DO at [facility] Left: Ankle [employer] 01/09/2025 [id number] / / [id number] Cmpnt Tlr Inbone 3 Dome Ankl Sulcus Implanted:Qty : 1 on 03/08/2017 by Nilesh Mojica DO at [facility] Left: Ankle [employer] 12/09/2024 [id number] / / [id number] Infinity Poly Insert Implanted:Qty : 1 on 03/08/2017 by Nilesh Mojica DO at [facility] Left: Ankle [employer] 10/22/2024 [id number] / / [id number] Screw Qckfix Kyler Canc 4.0 X 46 Implanted:Qty : 1 on 03/08/2017 by Nilesh Mojica DO at [facility] Left: Ankle Arthrex Inc [id number] / / Plate 61mm 3 Hl Hk Lck Ss Ft/Ankl Mdl Implanted:Qty : 1 on 03/08/2017 by Nilesh Mojica DO at [facility] Left: Ankle [employer] Inc AR-8943H-[id number] / / Screw 3.5mm 38mm T15 Hexalobe Ft Ankl Implanted:Qty : 1 on 03/08/2017 by Nilesh Mojica DO at [facility] Left: Ankle [employer] Inc AR-8835-38 / / Graft Bone Othblst Ii Dbm Canc 1cc Alg - [id number] Implanted:Qty : 1 on 03/08/2017 by Nilesh Mojica DO at [facility] Left: Ankle [employer] 01/01/20192100-010 / [id number] / [id number] Explanted Type Area Composite Bond Technician Device Identifier Shelf Expiration Date Model / Serial / Lot Jonathan Total Ank Replacement Explanted:Qty: 1 on 03/08/2017 at [facility] Left: Ankle [employer] TOTAL ANKLE REPL MORE / / Screw Qckfix Kyler Canc 4.0 X 46 Explanted:Qty: 1 on 03/08/2017 by Nilesh Mojica DO at [facility] Left: Ankle Arthrex Inc AR-[id number] PTS / / Advance Directives Documents on File Type Date Recorded Patient Patient Admitting Representative Expl anation Adv Directive/Living Will/POA 03/12/2017 8:08 PM * Full Code (Latest Code Status on File) Date Activated Date Inactivated Comments 03/08/2017 12:28 PM 03/09/2017 4:41 PM Care Teams Limited Radiology Technician Relationship Specialty Start Date End Date Leticia Handley MD PCP - General Internal Medicine 12/06/16 Nilesh Mojica DO Orthopedic Surgery 12/06/16 Enoc Sheridan PA-C [address] [place] [address] Physician Diesel Scoop Operator Physician Diesel Scoop Operator 03/13/17
--- OUTSIDE RECORDS SUMMARY | 2024-07-30 07:02 | XMS_ITS ---
Author Organization [facility] Address [address] [place], [place] [id number] Care Team Providers Care Popped Corn Oven Attendant Name Role Phone ANASTASIIA ORNELAS Unavailable [phone] Estela Handley Unavailable Unavailable REASON FOR VISIT Patient presents for at-risk foot care . The patient has painful toenails and calluses that are causing difficulty with ambulation and shoegear. The onset is gradual Encounters Encounter Location Date Provider Diagnosis [address] [id number] 07/24/2024 ANASTASIIA ORNELAS Tinea unguium B35.1 ; Acquired keratosis [keratoderma] palmaris et plantaris L85.1 ; Atherosclerosis of [place] arteries of extremities with intermittent claudication, bilateral legs I70.213 ; Pain in right foot M79.671 and Pain in left foot M79.672 Assessments Encounter Date Diagnosis (ICD Code) Assessment Notes Treatment Notes Treatment Clinical Notes Section Notes 07/24/2024 Tinea unguium (ICD-10 - B35.1) Nails 1-5 Bilateral were debrided extensively with nail nippers and emery board, reducing length and girth to pink healthy tissue with any subungual debris and necrotic tissue removed 07/24/2024 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.1) A total of 2 corns or calluses, as described in the note above, were cut and pared utilizing a #15 blade 07/24/2024 Atherosclerosis of [place] arteries of extremities with intermittent claudication, bilateral legs (ICD-10 - I70.213) 07/24/2024 Pain in right foot (ICD-10 - M79.671) 07/24/2024 Pain in left foot (ICD-10 - M79.672) Plan Of Treatment Treatment Notes Assessment Notes [...] Foot care, sooner if problems develop. Provider Name:OPAL GUZMAN, 09/25/2024 03:10:00 PM, [address] [place] [address], [id number], Progress Notes * KATIE CURZDOB:1940 (83 yo M)Acc No.[id number]:07/24/2024 Patient: KATIE HOGAN Provider: Whitney Ornelas DPM :1940 A ge:83 Y S ex:Male Date:07/24/2024 Address:[address] [address] Subjective: * Chief Complaints: * 1 . Patient presents for at-risk foot care . The patient has painful toenails and calluses that are causing difficulty with ambulation and shoegear. The onset is gradual. * HPI: H PI: General care P atient presents to the office for at risk foot care. Patient states that their nails are thickened, elongated and painful. Patient states that it is aggravated by shoe gear. Onset is gradual. Patient denies being diabetic., Patient is taking prescription blood thinners., Date last seen by Dr. Handley was 06/2024., Initials [facility]. * Medical History: Objective: * Vitals: * [...] Assessment: 1. T inea unguium - B35.1 2 . A cquired keratosis [keratoderma] palmaris et plantaris - L85.1 3 . A therosclerosis of [place] arteries of extremities with intermittent claudication, bilateral legs - I70.213 4 . P ain in right foot - M79.671 5 . P ain in left foot - M79.672 Plan: * Treatment: 2. A cquired keratosis [keratoderma] palmaris et plantaris Notes: A total of 2 corns or calluses, as described in the note above, were cut and pared utilizing a #15 blade * Follow Up: 1 0 - 12 weeks (Reason: At-Risk Foot care, sooner if problems develop.) * Billing Information: * Visit Code: * Procedure Codes: * Electronic signature of ANASTASIIA ORNELAS DPM on 07/30/2024 at 07:01 AM CDT Sign off status: Pending * Provider: Whitney Ornelas DPM Date: 0 07/24/2024 Generated for Joseph Gordon/Enzo on: 0 07/30/2024 07:01 AM CDT History and Physical Notes * HPI [...] Date last seen by Dr. Handley was 06/2024., Initials [facility] Examination Category Sub-Category Detail Notes [...]
--- OUTSIDE RECORDS SUMMARY | 2024-07-30 07:02 | XMS_ITS | Patient Health Record ---
Author Organization [facility] Address [address] [place], [place] [address] Care Team Providers Care Net Application Architect Name Role Phone EVYMoisés ANASTASIIA Unavailable [phone] Estela Handley Unavailable Unavailable CARLOS STEVE Unavailable [phone] Allergies No Known Allergies Reason For Referral No Information Immunizations Vaccine Route Administration Date Status Comme nts Influenza, high dose seasonal Unknown 02/12/2023 Admini stered Vital Signs Height-cm 167.64 cm 11/29/2023 Weight-kg 90.72 kg 11/29/2023 Height 66.00 in 11/29/2023 Weight 200 lbs 11/29/2023 BMI 32.28 kg/m2 11/29/2023 Encounters Encounter Location Date Provider Diagnosis [address] [id number] 07/24/2024 ANASTASIIA ORNELAS Tinea unguium B35.1 ; Acquired keratosis [keratoderma] palmaris et plantaris L85.1 ; Atherosclerosis of [place] arteries of extremities with intermittent claudication, bilateral legs I70.213 ; Pain in right foot M79.671 and Pain in left foot M79.[address] [id number] 09/27/2023 CARLOS STEVE Other hammer toe(s) (acquired), right foot M20.41 ; Tinea unguium B35.1 ; Other hammer toe(s) (acquired), left foot M20.42 ; Pain in right toe(s) M79.674 ; Pain in left toe(s) M79.675 ; Pain in right foot M79.671 ; Pain in left foot M79.672 ; 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[place] arteries of extremities, bilateral legs I70.203 and Acquired keratosis [keratoderma] palmaris et plantaris L85.[address] [id number] 11/29/2023 CARLOS STEVE Other hammer toe(s) (acquired), right foot M20.41 ; Tinea unguium B35.1 ; Other hammer toe(s) (acquired), left foot M20.42 ; Pain in right toe(s) M79.674 ; Pain in left toe(s) M79.675 ; Pain in right foot M79.671 ; Pain in left foot M79.672 ; 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[place] arteries of extremities, bilateral legs I70.203 and Acquired keratosis [keratoderma] palmaris et plantaris L85.[address] [id number] 01/31/2024 CARLOS STEVE Other hammer toe(s) (acquired), right foot M20.41 ; Tinea unguium B35.1 ; Other hammer toe(s) (acquired), left foot M20.42 ; Pain in right toe(s) M79.674 ; Pain in left toe(s) M79.675 ; Pain in right foot M79.671 ; Pain in left foot M79.672 ; 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[place] arteries of extremities, bilateral legs I70.203 and Acquired keratosis [keratoderma] palmaris et plantaris L85.[address] [id number] 04/10/2024 CARLOS STEVE Other hammer toe(s) (acquired), right foot M20.41 ; Tinea unguium B35.1 ; Other hammer toe(s) (acquired), left foot M20.42 ; Pain in right toe(s) M79.674 ; Pain in left toe(s) M79.675 ; Pain in right foot M79.671 ; Pain in left foot M79.672 ; 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[place] arteries of extremities, bilateral legs I70.203 and Acquired keratosis [keratoderma] palmaris et plantaris L85.[address] [id number] 05/22/2024 ANASTASIIA ORNELAS Tinea unguium B35.1 ; Pain in right foot M79.671 ; Pain in left foot M79.672 ; Atherosclerosis of [place] arteries of extremities with intermittent claudication, bilateral legs I70.213 and Acquired keratosis [keratoderma] palmaris et plantaris L85.1 Assessments Encounter Date Diagnosis (ICD Code) Assessment Notes Treatment Notes Treatment Clinical Notes Section Notes 09/27/2023 Tinea unguium (ICD-10 - B35.1) Aseptic [...] in right foot (ICD-10 - M79.671) 07/24/2024 Tinea unguium (ICD-10 - B35.1) Nails 1-5 Bilateral were debrided extensively with nail nippers and emery board, reducing length and girth to pink healthy tissue with any subungual debris and necrotic tissue removed 05/22/2024 Pain in left foot (ICD-10 - M79.672) 07/24/2024 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.1) A total of 2 corns or calluses, as described in the note above, were cut and pared utilizing a #15 blade 04/10/2024 Other hammer toe(s) (acquired), left foot (ICD-10 - M20.42) 01/31/2024 Other hammer toe(s) (acquired), left foot (ICD-10 - M20.42) 11/29/2023 Other hammer toe(s) (acquired), left foot (ICD-10 - M20.42) 09/27/2023 Other hammer toe(s) (acquired), left foot (ICD-10 - M20.42) 09/27/2023 Pain in right toe(s) (ICD-10 - M79.674) 11/29/2023 Pain in right toe(s) (ICD-10 - M79.674) 01/31/2024 Pain in right toe(s) (ICD-10 - M79.674) 07/24/2024 Atherosclerosis of [place] arteries of extremities with intermittent claudication, bilateral legs (ICD-10 - I70.213) 05/22/2024 Atherosclerosis of [place] arteries of extremities with intermittent claudication, bilateral legs (ICD-10 - I70.213) 04/10/2024 Pain in right toe(s) (ICD-10 - M79.674) 04/10/2024 Pain in left toe(s) (ICD-10 - M79.675) 05/22/2024 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.1) A total of 2 corns or calluses, as described in the note above, were cut and pared utilizing a #15 blade 07/24/2024 Pain in right foot (ICD-10 - M79.671) 01/31/2024 Pain in left toe(s) (ICD-10 - M79.675) 11/29/2023 Pain in left toe(s) (ICD-10 - M79.675) 09/27/2023 Pain in left toe(s) (ICD-10 - M79.675) 09/27/2023 Pain in right foot (ICD-10 - M79.671) 11/29/2023 Pain in right foot (ICD-10 - M79.671) 01/31/2024 Pain in right foot (ICD-10 - M79.671) 04/10/2024 Pain in right foot (ICD-10 - M79.671) 07/24/2024 Pain in left foot (ICD-10 - M79.672) 04/10/2024 Pain in left foot (ICD-10 - M79.672) 01/31/2024 Pain in left foot (ICD-10 - M79.672) 11/29/2023 Pain in left foot (ICD-10 - M79.672) 09/27/2023 Pain in left foot (ICD-10 - M79.672) 09/27/2023 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[place] arteries of extremities, bilateral legs (ICD-10 - I70.203) Patient educated on risks and aggravating factors of PVD, including conservative treatment options such as a diet and exercise regimen to aid in slowing progression of vascular disease 11/29/2023 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[place] arteries of extremities, bilateral legs (ICD-10 - I70.203) Patient educated on risks and aggravating factors of PVD, including conservative treatment options such as a diet and exercise regimen to aid in slowing progression of vascular disease 01/31/2024 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[place] arteries of extremities, bilateral legs (ICD-10 - I70.203) Patient educated on risks and aggravating factors of PVD, including conservative treatment options such as a diet and exercise regimen to aid in slowing progression of vascular disease 04/10/2024 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[place] arteries of extremities, bilateral legs (ICD-10 - [...] Plan Of Treatment Next Appt Details Provider Name:OPAL GUZMAN, 09/25/2024 03:10:00 PM, [address] [place] [address], [id number], Insurance Providers Payer Name Payer Address Payer Phone Subscriber Number Group Number Insured Name Patient Relationship to Insured Coverage Start Date Coverage End Date Medicare Part B [place] [address] [place] [phone] [id number] KATIE CRUZ Self - patient is the insured [facility] ([facility]) ATTN CLAIMS [address] [place] [address] [id number] KATIE CRUZ Self - patient is the insured 4
--- OUTSIDE RECORDS SUMMARY | 2024-07-30 07:02 | XMS_ITS ---
Author Organization [facility] Address [address] [place], [place] [address] Care Team Providers Care Shipping Hand Name Role Phone ANASTASIIA ORNELAS Unavailable [phone] Jagdish Handleyonam Unavailable Unavailable CARLOS STEVE Unavailable [phone] REASON FOR VISIT *General care Encounters Encounter Location Date Provider Diagnosis [address] [id number] 04/10/2024 CARLOS STEVE Other hammer toe(s) (acquired), right foot M20.41 ; Tinea unguium B35.1 ; Other hammer toe(s) (acquired), left foot M20.42 ; Pain in right toe(s) M79.674 ; Pain in left toe(s) M79.675 ; Pain in right foot M79.671 ; Pain in left foot M79.672 ; 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[place] arteries of extremities, bilateral legs I70.203 and [...] (ICD-10 - M79.672) 04/10/2024 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[place] arteries of extremities, bilateral legs (ICD-10 - [...] OTC and prescription treatments. 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[place] arteries of extremities, bilateral legs Patient educated [...] Details Follow Up: 3 Months, Reason: Provider Name:OPAL GUZMAN, 09/25/2024 03:10:00 PM, [address] [place] [address], [id number], Progress Notes * KATIE CRUZDOB:1940 (83 yo M)Acc No.[id number]:04/10/2024 Patient: Glenroy GOOD KATIE Provider: Fara STEVE :1940 A ge:83 Y S ex:Male Date:04/10/2024 Address: [facility] Subjective: * Chief Complaints: * 1 . [...] Patient denies c hest pain, history of ME, irregular heartbeat. M usculoskeletal: Patient complains of [...] M79.672 8 . U nspecified atherosclerosis of [place] arteries of extremities, bilateral legs - I70.203 [...] were emphasized. 3. U nspecified atherosclerosis of [place] arteries of extremities, bilateral legs Notes: Patient [...] LESIONS, 2 TO 4, Modifiers: Q8 , 30290 DEBRIDE NAIL, 6 OR MORE, Modifiers: 59 , Q8 * Follow Up: 3 Months * Billing Information: * Visit Code: * Procedure Codes: 53317 TRIM SKIN LESIONS, 2 TO 4. Modifiers: Q8 08728 DEBRIDE NAIL, 6 OR MORE. Modifiers: 59, Q8 * TICKET CLERK Sign off status: Completed true * Provider: Fara STEVE Date: 1 06/11/2023 Generated for Joseph jang/Triny/Danielitting on: 0 07/30/2024 07:01 AM CDT History [...]
--- OUTSIDE RECORDS SUMMARY | 2024-07-30 07:02 | XMS_ITS ---
Author Organization [facility] Address [address] [place], [place] [address] Care Team Providers Care Manager Route Name Role Phone ANASTASIIA ORNELAS Unavailable [phone] Estela Handley Unavailable Unavailable Allergies No Known Allergies REASON FOR VISIT Patient presents for at-risk foot care . The patient has painful toenails and calluses that are causing difficulty with ambulation and shoegear. The onset is gradual Encounters Encounter Location Date Provider Diagnosis [address] [id number] 05/22/2024 ANASTASIIA ORNELAS Tinea unguium B35.1 ; Pain in right foot M79.671 ; Pain in left foot M79.672 ; Atherosclerosis of [place] arteries of extremities with intermittent claudication, bilateral [...] foot (ICD-10 - M79.672) 05/22/2024 Atherosclerosis of [place] arteries of extremities with intermittent claudication, bilateral [...] develop. Provider Name:OPAL GUZMAN, 09/25/2024 03:10:00 PM, [address] [place] [address], [id number], Progress Notes * KATIE CRUZDOB:1940 (83 yo M)Acc No.[id number]:05/22/2024 Patient: KATIE HOGAN Provider: Whitney Ornelas DPM :1940 A ge:83 Y S ex:Male Date:05/22/2024 Address: [place] [address] Subjective: * Chief Complaints: * Glenroy rm [...] - M79.672 4 . A therosclerosis of [place] arteries of extremities with intermittent claudication, bilateral [...] SKIN LESIONS, 2 TO 4, Modifiers: Q8 30586 DEBRIDE NAIL, 6 OR MORE, Modifiers: 59 , Q8 * Follow Up: 1 0 - 12 weeks (Reason: At-Risk Foot care, sooner if problems develop.) * Billing Information: * Visit Code: * Procedure Codes: 60788 TRIM SKIN LESIONS, 2 TO 4. Modifiers: Q8 58867 DEBRIDE NAIL, 6 OR MORE. Modifiers: 59, Q8 * ORATE COMMUNICATIONS MANAGER Sign off status: Completed true * Provider: Whitney Ornelas DPM Date: 0 05/22/2024 Generated for Joseph Gordon/Enzo on: 0 07/30/2024 07:02 AM CDT History and Physical Notes * [...]
[2024-07-30 07:12] LABS: Hematocrit 32.6 % (37.0-46.0); Hemoglobin 10.1 g/dL (12.4-15.3); Mean Corpuscular Hemoglobin 28.9 pg (27.0-31.0); Mean Corpuscular Volume 93.4 fL (78.0-102.0); Mean Platelet Volume 8.9 fl (8.7-11.0); Platelet Count Result 171 K/mm3 (150-420); Red Blood Count 3.49 M/mm3 (4.70-6.10); Red Cell Distribution Width 14.6 % (11.6-14.4); White Blood Count 5.1 K/mm3 (4.8-10.8)
[2024-07-30 08:18] LABS: Alanine Aminotransferase 7 U/L (16-63); Albumin Level 3.2 g/dL (3.4-5.0); Alkaline Phosphatase 150 U/L (46-116); Anion Gap 6 mmol/L (4-12); Aspartate Amino Transferase 18 U/L (15-37); Bilirubin,Total 0.3 mg/dL (0.00-1.00); Blood Urea Nitrogen 24 mg/dL (7-18); Calcium 8.5 mg/dL (8.5-10.1); Carbon Dioxide 31 mmol/L (21-32); Chloride 103 mmol/L (98-108); Estimated Glomerular Filt Rate > 60; Ferritin 112 ng/mL (26-388); Glucose 108 mg/dL (70-99); Iron 64 ug/dL (65-175); Osmolality Calculated 295 mOsm/kg (285-295); Sodium 140 mmol/L (136-145); Total Protein 6.5 g/dL (6.4-8.2); Vitamin B12 445 pg/mL (193-986)
== END 2024-07-30 06:59 | disposition home or self-care (01) ==
LOC: CHSLAB 07:00
PROVIDERS: PCP Internal Medicine; Visit Provider Internal Medicine
DX: D64.9 Anemia, unspecified (principal); E53.8 Deficiency of other specified B group vitamins; I10 Essential (primary) hypertension
CPT/HCPCS: 36415; 80053; 82607; 82728; 83540; 85027

== ENCOUNTER 2024-08-15 12:25 | Outpatient (CLI) | payer MEDICARE, SELFPAY ==
--- OUTSIDE RECORDS SUMMARY | 2024-08-15 12:31 | XMS_ITS | Referral Summary ---
Author Organization [address] Address [address] [place] [address] Care Team Providers Care Kelly Machine Operator Name Role Phone Leticia Handley MD Primary Care Provider Encounters Date Type Department Care Team Description 08/13/2024 Telephone [facility] [address] [facility] [address] [place] [phone] Zelda Negron RN 08/12/2024 1:30 PM CDT Office Visit [facility] [address] [facility] [address] [place] [phone] Isiah Brown MD PhD Parkinson's disease without dyskinesia or fluctuating manifestations (HCC) (Primary Dx); Sialorrhea 06/27/2024 Telephone [facility] Medical [facility] Card[facility] [address] [place] [address] Freeman Chavira MD 06/16/2024 Telephone [facility] [address] [facility] [address] [place] [address] Freeman Chavira MD samples 05/19/2024 Telephone [facility] [address] [place] [address] Freeman Chavira MD from Last 3 Months Allergies No known active allergies Medications bimatoprost (Lumigan) 0.01 % ophthalmic drops Administer 1 drop into both eyes nightly 06/03/19 22 Active aspirin 81 mg enteric coated tablet Take 1 tablet (81 mg total) by mouth daily 30 tablet 1 06/17/19 23 Active levothyroxine (SYNTHROID) 75 mcg tablet Take 1 tablet (75 mcg total) by mouth fig caprifier before breakfast 30 tablet 1 06/17/19 23 Active polyethylene glycol (MIRALAX) 17 gram packetIndicatio ns:constipation Take 1 packet (17 g total) by mouth daily 20 packet 1 06/17/19 23 Active terazosin (HYTRIN) 10 mg capsule 08/08/19 23 Active vit A/C/E ac/ZnOx/cupric oxide (EYE VITAMIN AND MINERALS ORAL) Take by mouth A ctive atorvastatin (LIPITOR) 20 mg tablet TAKE 1 TABLET BY MOUTH EVERY DAY 90 tablet 1 05/06/[address] (PROTONIX) 40 mg EC tablet TAKE 1 TABLET BY MOUTH EVERY DAY 90 tablet 3 10/15/19 24 Active carbidopa-levod opa (SINEMET) 25-100 mg per tabletIndicatio ns:Parkinsonism Take 1 tablet by mouth 3 (three) times a day 270 tablet 3 01/02/20 24 025 Active pramipexole (MIRAPEX) 1 mg tablet Take 3 tablets (3 mg total) by mouth 3 (three) times a day 810 tablet 3 01/30/20 24 Active potassium chloride ER 10 mEq CR tablet TAKE 1 TABLET/CAPSUL E (10 MEQ TOTAL) BY MOUTH DAILY 90 tablet 2 02/04/20 24 Active rasagiline (AZILECT) 0.5 mg tabletIndicatio ns:Idiopathic Parkinsonism 1 tab qam 90 tablet 3 02/25/20 24 Active rivaroxaban (XARELTO) 20 mg tablet Take 1 [...] day 270 tablet 1 07/18/19 25 Active glycopyrrolate (ROBINUL) 1 mg tabletIndicatio ns:Sialorrhea Take 1 tablet (1 mg total) by mouth 3 (three) times a day 90 tablet 11 08/13/19 25 026 Active brimonidine-julio cesar oloL (COMBIGAN) 0.2-0.5 % ophthalmic solution Administer 1 drop into both eyes 2 (two) times a day Active mecobalamin, vitamin B12, (B12 Active) 1,000 mcg tablet,chewable Take 1,000 mcg by mouth daily 05/08/19 25 Active vitamin b complex tablet Take 1 tablet by mouth daily 05/08/19 25 Active carbidopa-levod opa (SINEMET) 25-250 mg per tabletIndicatio ns:Idiopathic Parkinsonism Take 2 tablets by mouth 3 (three) times a day 540 tablet 3 08/14/19 25 026 Active brimonidine-julio cesar oloL (COMBIGAN) 0.2-0.5 % ophthalmic solution Administer 1 drop into affected eye(s) 2 (two) times a day 06/03/19 22 025 Discontinued(T herapy completed) multivitamin capsule Take 1 capsule by mouth daily 025 Discontinued ascorbic acid (VITAMIN C) 1,000 mg tablet Take 1 tablet (1,000 mg total) by mouth daily 025 Discontinued midodrine (PROAMATINE) 5 mg tablet TAKE 1 TABLET BY MOUTH 3 TIMES A DAY BEFORE MEALS. 270 tablet 3 07/19/19 24 025 Discontinued(R eorder) timolol (TIMOPTIC) 0.5 % ophthalmic solution 1 drop 2 (two) times a day 025 Discontinued(T herapy completed) brimonidine (ALPHAGAN) 0.2 % ophthalmic solution 1 drop 3 (three) times a day 025 Discontinued(P atient Reported) carbidopa-levod opa (SINEMET) 25-250 mg per tabletIndicatio ns:Idiopathic Parkinsonism Take 2.5 tablets by mouth 3 (three) times a day 675 tablet 3 09/18/19 24 025 Discontinued(R eorder) Active Problems Problem Noted Date Diagnosed Date Chronic anticoagulation 05/08/2023 Autonomic orthostatic hypotension 01/26/2023 S/P CABG x 2 07/17/2022 S/P aortic valve replacement with bioprosthetic valve 07/17/2022 Postoperative atrial fibrillation 07/17/2022 Chronic heart failure with p reserved ejection fraction (HFpEF) 02/08/2021 Localized edema 12/15/2019 Parkinson's disease 06/09/2019 Assessment & Plan (08/12/2024 9:59 PM CDT): 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 He has only modest response to levodopa + pramipexole despite high doses of each, but is also not experiencing side- effects or wearing off. His family has noticed some improvement since adding rasagiline, and we will try increasing to 1mg daily. We previously tried weaning off pramipexole due to the higher risk of side-effects, but his symptoms worsened so we restarted it. He has bothersome drooling due to PD. We discussed options and will try glycopyrrolate, and if ineffective he will let us know if he would like to trial Botulinum toxin injections. Recommendations: -continue same CD/LD -increase rasagiline to 1mg daily (they will try this with his current prescription and let us know if we should send an updated script to [facility] in 2-3 weeks) -start glycopyrrolate 1mg TID for sialorrhea -if ineffective consider Botox injections Assessment & Plan (03/12/2024 1:31 PM STUNT DRIVER): 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 [...] placement 11/29/2016 Coronary artery disease invo lving [place] coronary artery of [place] heart without angina pectoris 08/14/2016 Overview (09/29/2016): Coronary artery disease involving [place] coronary artery of [place] heart with other form of angina pectoris [...] relatives? Three times a week 06/06/2022 Attends [employer] Not on file 06/06 Active Member [...] on file Legal Sex Male 12:29 AM STUNT DRIVER Gender Identity Not on file Sexual Orientation Not on file Last Filed Vital Signs Vital Sign Reading Time Taken Comments Blood Pressure 137/71 08/12/2024 12:47 PM CDT Pulse 66 08/12/2024 12:47 PM CDT Temperature 36.8 C (98.2 F) 08/12/2024 12:47 PM CDT Respiratory Rate 18 04/10/2024 2:18 PM STUNT DRIVER Oxygen Saturation 97% 04/10/2024 2:18 PM STUNT DRIVER Inhaled Oxygen Concentration - - Weight 84.4 kg (186 lb) 08/12/2024 12:47 PM CDT Height 167.6 cm (5' 5.98 ) 08/12/2024 12:47 PM C DT Body Mass Index 30.04 08/12/2024 12:47 PM CDT Plan of Treatment Not on file Medical Devices Implanted Type Area Spanish Lecturer Device Identifier Shelf Expiration Date Model / Serial / Lot Ziggy Medical Plate Bone Low Profile 6 Hole H Shape Ti 115.102.06 - [id number] Implanted:Qty: 1 on 06/05/2022 by Nicolás Arevalo MD at [facility] Plate N/A: Sternum [employer] 115.102. 06 / / Ziggy Medical Plate Bone Low Profile 4 Hole Box Ti 115.103.04 - [id number] Implanted:Qty: 1 on 06/05/2022 by Nicolás Arevalo MD at [facility] Plate N/A: Sternum [employer] 115.103. 04 / / Ziggy Medical Plate Bone Low Profile 6 Hole O Concave Ti 115.604.06 - [id number] Implanted:Qty: 1 on 06/05/2022 by Nicolás Arevalo MD at [facility] Plate N/A: Sternum [employer] 115.604. 06 / / [employer] Von-Tim ds Perimount Magna Ease 23mm Bioprosthesis [id number] - [id number] - [id number] Implanted:Qty: 1 on 06/05/2022 by Nicolás Arevalo MD at [facility] Prosthetic Valve N/A: Heart [employer] 07/18/2024 [id number] / [id number] / Zig[employer] Medical Screw Bone Slf Drl Full Thread Locking 3.5x14mm Ti 100.035.14 - [id number] Implanted:Qty: 10 on 06/05/2022 by Nicolás Arevalo MD at [facility] Screw N/A: Sternum [employer] 100.035. 14 / / Z[employer] Medical Screw Bone Slf Drl Full Thread Locking 3.5x16mm Ti 100.035.16 - [id number] Implanted:Qty: 6 on 06/05/2022 by Nicolás Arevalo MD at [facility] Screw N/A: Sternum [employer] 100.035. 16 / / Procedures Procedure Name Priority Date/Time Associated Diagnosis Comments POCT LIPID PANEL Routine 08/02/2023 10:2 9 AM CDT Coronary artery disease involving [place] coronary artery of [place] heart without angina pectoris EGFR Routine 06/16/2022 10:03 AM STUNT DRIVER HEMOGLOBIN A1C Routine 05/30/2022 12:59 PM STUNT DRIVER Preop testing Type 2 diabetes mellitus with [...] Final Result * eGFR (06/16/2022 10:03 AM STUNT DRIVER) eGFR 67 mL/min/1. 73 m2 [facility] [...] reviewed 2021. Blood 06/16/2022 10:0 3 AM STUNT DRIVER 06/16/2022 10:03 AM STUNT DRIVER Nicolás Arevalo MD LAB BLOOD ORDERABLES Final Res ult RYAN LUX [id number] Department [place] [address] * Hemoglobin A1c (05/30/2022 12:59 PM STUNT DRIVER) Hgb A1C 5.5 4.0 - 5.6 % [facility] Estimated Average Glucose 111 mg/dL [facility]UX Comment: The ADA recommends reporting an estimated Average Glucose (eAG) with all Hemoglobin A1c results using the equation derived from a study of 507 normal and diabetic adults. Minority populations were underrepresented and children were not included. (Diabetes Care 31:6258-2850, 2008). The eAG is not equivalent to a fasting glucose. Blood 05/30/2022 12:5 9 PM STUNT DRIVER 05/30/2022 1:03 PM STUNT DRIVER us Nicolás Arevalo MD LAB BLOOD ORDERABLES Final Res ult RYAN [address] [address] Department [place] [address] from Last 3 Months or Most Recently Relevant to Health Maintenance Insurance MEDICARE [facility] MEDICARE [place] [address] MEDICARE [facility] MEDICARE SUPPLEMENT MEDICARE [facility] MEDICARE SUPPLEMENT Advance Directives For more information, please contact: [phone] * Full Code (Latest Code Status on File) Date Activated Date Inactivated Comments 06/05/2022 2:49 PM 06/16/2022 5:28 PM Care Teams Kelly Machine Operator Relationship Specialty Start Date End Date Leticia Handley MD [address] [place] [address] PCP - General Internal Medicine 05/08/23
--- OUTSIDE RECORDS SUMMARY | 2024-08-15 12:31 | XMS_ITS | Patient Health Record ---
Author Organization [facility] Address [address] [place], [place] [address] Care Team Providers Care School Commissioner Name Role Phone EVYMoisés ANASTASIIA Unavailable [phone] Estela Handley Unavailable Unavailable CARLOS STEVE Unavailable [phone] Allergies No Known Allergies Reason For Referral No Information Immunizations Vaccine Route Administration Date Status Comme nts Influenza, high dose seasonal Unknown 02/12/2023 Admini stered Vital Signs Height-cm 167.64 cm 11/29/2023 Weight-kg 90.72 kg 11/29/2023 Height 66.00 in 11/29/2023 Weight 200 lbs 11/29/2023 BMI 32.28 kg/m2 11/29/2023 Encounters Encounter Location Date Provider Diagnosis [address] [id number] 07/24/2024 ANASTASIIA ORNELAS Tinea unguium B35.1 ; Pain in right foot M79.671 ; Pain in left foot M79.672 ; 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, bilateral legs I70.213 and Acquired keratosis [keratoderma] palmaris et plantaris L85.[address] [id number] 09/27/2023 CARLOS STEVE Other hammer toe(s) (acquired), right foot M20.41 ; Tinea unguium B35.1 ; Other hammer toe(s) (acquired), left foot M20.42 ; Pain in right toe(s) M79.674 ; Pain in left toe(s) M79.675 ; Pain in right foot M79.671 ; Pain in left foot M79.672 ; 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, bilateral legs I70.203 and Acquired keratosis [keratoderma] palmaris et plantaris L85.[address] [id number] 11/29/2023 CARLOS STEVE Other hammer toe(s) (acquired), right foot M20.41 ; Tinea unguium B35.1 ; Other hammer toe(s) (acquired), left foot M20.42 ; Pain in right toe(s) M79.674 ; Pain in left toe(s) M79.675 ; Pain in right foot M79.671 ; Pain in left foot M79.672 ; 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, bilateral legs I70.203 and Acquired keratosis [keratoderma] palmaris et plantaris L85.[address] [id number] 01/31/2024 CARLOS STEVE Other hammer toe(s) (acquired), right foot M20.41 ; Tinea unguium B35.1 ; Other hammer toe(s) (acquired), left foot M20.42 ; Pain in right toe(s) M79.674 ; Pain in left toe(s) M79.675 ; Pain in right foot M79.671 ; Pain in left foot M79.672 ; 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, bilateral legs I70.203 and Acquired keratosis [keratoderma] palmaris et plantaris L85.[address] [id number] 04/10/2024 CARLOS STEVE Other hammer toe(s) (acquired), right foot M20.41 ; Tinea unguium B35.1 ; Other hammer toe(s) (acquired), left foot M20.42 ; Pain in right toe(s) M79.674 ; Pain in left toe(s) M79.675 ; Pain in right foot M79.671 ; Pain in left foot M79.672 ; 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, bilateral legs I70.203 and Acquired keratosis [keratoderma] palmaris et plantaris L85.[address] [id number] 05/22/2024 ANASTASIIA ORNELAS Tinea unguium B35.1 ; Pain in right foot M79.671 ; Pain in left foot M79.672 ; 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, bilateral [...] subungual debris and necrotic tissue removed 07/24/2024 Pain in right foot (ICD-10 - M79.671) 07/24/2024 Pain in left foot (ICD-10 - M79.672) 05/22/2024 Pain in left foot (ICD-10 - [...] toe(s) (ICD-10 - M79.674) 07/24/2024 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, bilateral legs (ICD-10 - I70.213) 05/22/2024 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, bilateral legs (ICD-10 - I70.213) 04/10/2024 Pain in right toe(s) (ICD-10 - M79.674) 04/10/2024 Pain in left toe(s) (ICD-10 - M79.675) 05/22/2024 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.1) A total of 2 corns or calluses, as described in the note above, were cut and pared utilizing a #15 blade 07/24/2024 Acquired keratosis [keratoderma] palmaris et plantaris [...] (ICD-10 - M79.672) 09/27/2023 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, bilateral legs (ICD-10 - I70.203) Patient educated on risks and aggravating factors of PVD, including conservative treatment options such as a diet and exercise regimen to aid in slowing progression of vascular disease 11/29/2023 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, bilateral legs (ICD-10 - I70.203) Patient educated on risks and aggravating factors of PVD, including conservative treatment options such as a diet and exercise regimen to aid in slowing progression of vascular disease 01/31/2024 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, bilateral legs (ICD-10 - I70.203) Patient educated on risks and aggravating factors of PVD, including conservative treatment options such as a diet and exercise regimen to aid in slowing progression of vascular disease 04/10/2024 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, bilateral legs (ICD-10 - [...] Details Provider Name:OPAL GUZMAN, 09/25/2024 03:10:00 PM, [address] [place] [address], [id number], Insurance Providers Payer Name Payer Address Payer Phone Subscriber Number Group Number Insured Name Patient Relationship to Insured Coverage Start Date Coverage End Date Medicare Part B [place] [address] [place] [phone] [id number] KATIE CRUZ Self - patient is the insured [facility] ([facility]) ATTN CLAIMS [address] [place] [address] [id number] KATIE CRUZ Self - patient is the insured 4
--- OUTSIDE RECORDS SUMMARY | 2024-08-15 12:31 | XMS_ITS | Clinical Summary ---
Author Organization [facility] [address] Address [address] [place] [address] Care Team Providers Care Ramp Service Employee Name Role Phone Leticia Handley MD Primary Care Provider Allergies No known active allergies Medications bimatoprost (Lumigan) 0.01 % ophthalmic drops Administer 1 drop into both eyes nightly 06/03/19 22 Active aspirin 81 mg enteric coated tablet Take 1 tablet (81 mg total) by mouth daily 30 tablet 1 06/17/19 23 Active levothyroxine (SYNTHROID) 75 mcg tablet Take 1 tablet (75 mcg total) by mouth american sign language interpreter before breakfast 30 tablet 1 06/17/19 23 [...] we should send an updated script to [facility] in 2-3 weeks) -start glycopyrrolate 1mg TID for sialorrhea -if ineffective consider Botox injections Assessment & Plan (03/12/2024 1:31 PM MANAGER FEDERAL): 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 [...] placement 11/29/2016 Coronary artery disease invo lving delaware tribe coronary artery of delaware tribe heart without angina pectoris 08/14/2016 Overview (09/29/2016): Coronary artery disease involving delaware tribe coronary artery of delaware tribe heart with other form of angina pectoris [...] Type Department Care Team Description 08/13/2024 Telephone [facility] Movement Disorders [facility] [address] [address] Zelda Negron RN 08/12/2024 1:30 PM CDT Office Visit [facility] Movement Disorders [facility] Medicine [address] [place] [phone] Isiah Brown MD PhD Parkinson's disease without dyskinesia or fluctuating manifestations (HCC) (Primary Dx); Sialorrhea 06/27/2024 Telephone [facility] Cardiology [address] [place] [address] Freeman Chavira MD 06/16/2024 Telephone [facility] Cardiology [address] [place] [address] Freeman Chavira MD samples 05/19/2024 Telephone [facility] Cardiology [address] [place] [address] Freeman Chavira MD from Last [...] Hypertension Hypertension Adiposity Obesity Sleep apnea CPAP SD (myocardial infarction) (HCC) 2014 CAD (coronary artery [...] place to sleep or slept in a detention (including now)? No 06/06/2022 Personal Safety Answer Date Recorded Getting School Help Needed Denies 05/05 Sex and Gender Information Value Date Recorded Sex Assigned at Not on file Legal Sex Male 12:29 AM MANAGER FEDERAL Gender Identity Not on file Sexual Orientation Not on file Obstetrics History Last Filed Vital Signs Vital Sign Reading Time Taken Comments Blood Pressure 137/71 08/12/2024 12:47 PM CDT Pulse 66 08/12/2024 12:47 PM CDT Temperature 36.8 C (98.2 F) 08/12/2024 12:47 PM CDT Respiratory Rate 18 04/10/2024 2:18 PM MANAGER FEDERAL Oxygen Saturation 97% 04/10/2024 2:18 PM MANAGER FEDERAL Inhaled Oxygen Concentration - - Weight 84.4 kg (186 lb) 08/12/2024 12:47 PM CDT Height 167.6 cm (5' 5.98 ) 08/12/2024 12:47 PM C DT Body Mass Index 30.04 08/12/2024 12:47 PM CDT Plan of Treatment Health Maintenance Due Date Last Done Comments Albumin Creatinine Ratio, Urine 1940 Dilated Eye Exam 1940 Foot Exam 1940 Hepatitis B Screening 1956 Zoster Vaccine (1 of 2) 1988 Well Visit 65+ 11/18/2003 DTaP/Tdap/Td Vaccine (1 - Tdap) 01/24/2012 2 Hemoglobin A1C 11/27/2022 05/30/2022 Fall Risk Assessment 06/16/2023 06/16/2022 eGFR 06/16/2023 06/16/2022, 01/2023, 06/14/2022, Additional history exists Lipid Panel 08/01/2024 08/02/2023, 07/05, 05/24/2021, Additional history exists Depression Screening 09/17/2024 09/18/2023 Influenza Vaccine (Season Ended) 2025 01/31/2019, 01/25/2018, 02/15/2017, Additional history exists Pneumococcal vaccine 65+ Completed 03/04/2015, 11/2012 Medical Devices Implanted Type Area Senior Mainframe Developer Device Identifier Shelf Expiration Date Model / Serial / Lot Ziggy Medical Plate Bone Low Profile 6 Hole H Shape Ti 115.102.06 - [id number] Implanted:Qty: 1 on 06/05/2022 by Nicolás Arevalo MD at [facility] Plate N/A: Sternum [employer] 115.102. 06 / / Ziggy Medical Plate Bone Low Profile 4 Hole Box Ti 115.103.04 - [id number] Implanted:Qty: 1 on 06/05/2022 by Nicolás Arevalo MD at [facility] Plate N/A: Sternum [employer] 115.103. 04 / / Ziggy Medical Plate Bone Low Profile 6 Hole O Concave Ti 115.604.06 - [id number] Implanted:Qty: 1 on 06/05/2022 by Nicolás Arevalo MD at [facility] Plate N/A: Sternum [employer] 115.604. 06 / / [employer] Von-Tim ds Perimount Magna Ease 23mm Bioprosthesis [id number] - [id number] - [id number] Implanted:Qty: 1 on 06/05/2022 by Nicolás Arevalo MD at [facility] Prosthetic Valve N/A: Heart [employer] 07/18/2024 [id number] 3MM / [id number] / Ziggy Medical Screw Bone Slf Drl Full Thread Locking 3.5x14mm Ti 100.035.14 - [id number] Implanted:Qty: 10 on 06/05/2022 by Nicolás Arevalo MD at [facility] Screw N/A: Sternum [employer] 100.035. 14 / / Ziggy Medical Screw Bone Slf Drl Full Thread Locking 3.5x16mm Ti 100.035.16 - [id number] Implanted:Qty: 6 on 06/05/2022 by Nicolás Arevalo MD at [facility] Screw N/A: Sternum [employer] 100.035. 16 / / Procedures Procedure Name Priority Date/Time Associated Diagnosis Comments POCT LIPID PANEL Routine 08/02/2023 10:2 9 AM CDT Coronary artery disease involving delaware tribe coronary artery of delaware tribe heart without angina pectoris EGFR Routine 06/16/2022 10:03 AM MANAGER FEDERAL HEMOGLOBIN A1C Routine 05/30/2022 12:59 PM MANAGER FEDERAL Preop testing Type 2 diabetes mellitus with [...] Final Result * eGFR (06/16/2022 10:03 AM MANAGER FEDERAL) eGFR 67 mL/min/1. 73 m2 RYAN LUX [...] reviewed 2021. Blood 06/16/2022 10:0 3 AM MANAGER FEDERAL 06/16/2022 10:03 AM MANAGER FEDERAL Nicolás Arevalo MD LAB BLOOD ORDERABLES Final Res ult RYAN [address] [address] Department [place] [address] * Hemoglobin A1c (05/30/2022 12:59 PM MANAGER FEDERAL) Hgb A1C 5.5 4.0 - 5.6 % RYAN LUX Estimated Average Glucose 111 mg/dL RYAN LUX Comment: The ADA recommends reporting an estimated Average Glucose (eAG) with all Hemoglobin A1c results using the equation derived from a study of 507 normal and diabetic adults. Minority populations were underrepresented and children were not included. (Diabetes Care 31:3745-8764, 2008). The eAG is not equivalent to a fasting glucose. Blood 05/30/2022 12:5 9 PM MANAGER FEDERAL 05/30/2022 1:03 PM MANAGER FEDERAL Nicolás Arevalo MD LAB BLOOD ORDERABLES Final Res ult RYAN [address] [address]ron Department [place] [address] from Last 3 Months or Most Recently Relevant to Health Maintenance Insurance MEDICARE [facility] MEDICARE SUPPLEMENT INSURANCE MEDICARE [facility] [place] [id number] MEDICARE [facility] [place] [address] [place] [id number] Advance Directives For more information, please contact: [phone] * Full Code (Latest Code Status on File) Date Activated Date Inactivated Comments 06/05/2022 2:49 PM 06/16/2022 5:28 PM Care Teams Ramp Service Employee Relationship Specialty Start Date End Date Leticia Handley MD [address] [id number] PCP - General Internal Medicine 05/08/23
--- OUTSIDE RECORDS SUMMARY | 2024-08-15 12:31 | XMS_ITS ---
Author Organization [facility] Address [address] [place], [place] [address] Care Team Providers Care Nursing Support Worker Name Role Phone ANASTASIIA ORNELAS Unavailable [phone] Estela Handley Unavailable Unavailable REASON FOR VISIT Patient presents for at-risk foot care . The patient has painful toenails and calluses that are causing difficulty with ambulation and shoegear. 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 Provider Name:OPAL GUZMAN, 09/25/2024 03:10:00 PM, [address] [place] [address], [id number], Progress Notes * KATIE CRUZDOB:1940 (83 yo M)Acc No.[id number]:07/24/2024 Patient: KATIE HOGAN Provider: Whitney Ornelas DPM :1940 A ge:83 Y S ex:Male Date:07/24/2024 Address:[address] [id number] Subjective: * Chief Complaints: * 1 . [...] seen by Dr. Handley was 06/2024., Initials [facility]. * Medical History: Objective: * Vitals: [...] - M79.672 4 . A therosclerosis of tangirnaq arteries of extremities with intermittent claudication, bilateral legs - I70.213 5 . Acquired keratosis [keratoderma] palmaris et plantaris - L85.1 Plan: * Treatment: 2. A cquired keratosis [keratoderma] palmaris et plantaris Notes: A total of 2 corns or calluses, as described in the note above, were cut and pared utilizing a #15 blade * Procedure Codes: 1 1055 TRIM SKIN LESION, Modifiers: Q8 , 90402 DEBRIDE NAIL, 6 OR MORE, Modifiers: 59 , Q8 * Follow Up: 1 0 - 12 weeks (Reason: At-Risk Foot care, sooner if problems develop.) * Billing Information: * Visit Code: * Procedure Codes: 08623 TRIM SKIN LESION. Modifiers: Q8 20546 DEBRIDE NAIL, 6 OR MORE. Modifiers: 59, Q8 * Electronic signature of ANASTASIIA ORNELAS DPM on 08/15/2024 at 12:31 PM CDT Sign off status: Pending * Provider: Whitney Ornelas DPM Date: 0 07/24/2024 Generated for Joseph jang/Triny/Danielitting on: 0 08/15/2024 12:31 PM CDT History and Physical Notes * [...]
--- OUTSIDE RECORDS SUMMARY | 2024-08-15 12:31 | XMS_ITS ---
Author Organization [facility] Address [address] [place], [place] [address] Care Team Providers Care Regional Service Manager Name Role Phone ANASTASIIA ORNELAS Unavailable [phone] Jagdish Handleyonam Unavailable Unavailable CARLOS STEVE Unavailable [phone] REASON FOR VISIT *General care Encounters Encounter Location Date Provider Diagnosis [address] [id number] 04/10/2024 CARLOS STEVE Other hammer toe(s) (acquired), right foot M20.41 ; Tinea unguium B35.1 ; Other hammer toe(s) (acquired), left foot M20.42 ; Pain in right toe(s) M79.674 ; Pain in left toe(s) M79.675 ; Pain in right foot M79.671 ; Pain in left foot M79.672 ; 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[place] arteries of extremities, bilateral legs I70.203 and [...] (ICD-10 - M79.672) 04/10/2024 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[place] arteries of extremities, bilateral legs (ICD-10 - [...] OTC and prescription treatments. 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[place] arteries of extremities, bilateral legs Patient educated [...] Reason: Provider Name:OPAL GUZMAN, 09/25/2024 03:10:00 PM, [address] [place] [address], [id number], Progress Notes * KATIE CRUZDOB:1940 (83 yo M)Acc No.[id number]:04/10/2024 Patient: Glenroy GOOD KATIE Provider: Fara STEVE :1940 A ge:83 Y S ex:Male Date:04/10/2024 Address: [id number] Subjective: * Chief Complaints: * 1 . [...] M79.672 8 . U nspecified atherosclerosis of [place] arteries of extremities, bilateral legs - I70.203 [...] were emphasized. 3. U nspecified atherosclerosis of [place] arteries of extremities, bilateral legs Notes: Patient [...] LESIONS, 2 TO 4, Modifiers: Q8 , 15770 DEBRIDE NAIL, 6 OR MORE, Modifiers: 59 , Q8 * Follow Up: 3 Months * Billing Information: * Visit Code: * Procedure Codes: 21491 TRIM SKIN LESIONS, 2 TO 4. Modifiers: Q8 17152 DEBRIDE NAIL, 6 OR MORE. Modifiers: 59, Q8 * MOLDER Sign off status: Completed true * Provider: Fara STEVE Date: 1 06/11/2023 Generated for Joseph jang/Triny/Danielitting on: 0 08/15/2024 [...]
--- OUTSIDE RECORDS SUMMARY | 2024-08-15 12:31 | XMS_ITS | Clinical Summary ---
Author Organization [facility] Address [address] [place] [address] Care Team Providers Care Rn Surgical Name Role Phone Leticia Handley MD Primary Care Provider [phone] Allergies No known active allergies Medications clopidogrel [...] opa (SINEMET) 25-250 MG tabletIndicatio ns:Parkinson's disease ([facility]) TAKE 1 TABLET BY MOUTH 4 TIMES DAILY 360 tablet 3 03/24/2022 Active pramipexole (MIRAPEX) 1 MG tabletIndicatio ns:Parkinson's disease (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) 11/15/2015 Overview (05/27/2019): Overview: DM type 2 with diabetic dyslipidemia Hypertensive heart disease w ith congestive heart failure ([facility]) 08/02/2015 Overview (05/27/2019): Overview: Hypertensive heart disease with diastolic heart failure YANET on CPAP 08/02/2015 Overview (05/27/2019): Overview: YANET on CPAP Benign hypertension 04/26/2015 Overview (05/27/2019): Overview: HTN (hypertension), benign Dyslipidemia 04/26/2015 Overview (05/27/2019): Overview: Mixed dyslipidemia Cardiomyopathy ([facility]) 04/26/2015 Overview (05/27/2019): Overview: Cardiomyopathy Myocardial infarction ([facility]) 04/26/20 15 Overview (05/27/2019): Overview: ST [...] CDT Respiratory Rate 18 07/13/2021 2:45 PM CARD SCRAPER Oxygen Saturation 96% 12/16/2021 8:52 AM CDT [...] - 2023-2 5 season) 2024 06/29/2020, 06/08/2020 Meningococcal B Vaccine Aged Out No l onger eligible based on patient's age to complete this topic Meningococcal Vaccine Aged Out No rozina joyce eligible based on patient's age to complete this topic RSV Immunizations Under 20 Months Aged Out No longer eligible b ased on patient's age to complete this topic Insurance MEDICARE [employer] MEDICARE [employer] Care Teams Rn Surgical Relationship Specialty Start Date End Date Leticia Handley MD [address] [place] [phone] PCP - General INTERNAL MEDICINE 08/09/18
--- OUTSIDE RECORDS SUMMARY | 2024-08-15 12:32 | XMS_ITS | Encounter Summary ---
Author Organization [facility] Address [address] [place] [address] Care Team Providers Care Learning Developer Name Role Phone Leticia Handley MD Primary Care Provider [phone] Karrie Mcgregor DO Primary Care Provide r Leticia Handley MD Primary Care Provider [phone] Encounter Details Date Type Department Care Team (Late st Contact Info) Description 08/15/2016 Orders Only [facility] ProviderNila MD [address] [place] [address] Social History Tobacco Use Types Packs/Day Years Used Date Smoking Tobacco: Never Alcohol Use Standard Drinks/Week Comments Yes 0 (1 standard drink = 0.6 oz pur e alcohol) Sex and Gender Information Value Date Recorded Sex Assigned at Not on file 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
--- OUTSIDE RECORDS SUMMARY | 2024-08-15 12:32 | XMS_ITS | Encounter Summary ---
Author Organization [facility] Address [address] [place] [address] Care Team Providers Care Cooker Sulfate Name Role Phone Leticia Handley MD Primary Care Provider [phone] Nilesh Mojica DO Unavailable [phone] Enoc Sheridan PA-C Unavailable Encounter Details Date Type Department Care Team (Late st Contact Info) Description 12/06/2016 [facility] Outpatient Visit [facility] Orthopedics - Radiology [address] [place] [address] Nilesh Mojica [address] [address] Social History Tobacco Use Types Packs/Day Years Used Date Smoking Tobacco: Never Smokeless Tobacco: Never Sex and Gender Information Value Date Recorded Sex Assigned at Not on file Gender Identity Not on file Sexual Orientation Not on file documented as of this encounter Plan of Treatment Upcoming Encounters Date Type Department Care Team (Late st Contact Info) Description 03/09/2025 10:40 AM GAS LEAK TESTER Office Visit [facility] Orthopedics [address] [address] Nilesh Mojica [address] [address] documented as of this encounter Visit Diagnoses Not on filedocumented in this encounter Care Teams Cooker Sulfate Relationship Specialty Start Date End Date Leticia Handley MD PCP - General Internal Medicine 12/06/16 Nilesh Mojica DO Orthopedic Surgery 12/06/16 Enoc Sheridan PA-C [address] [place] [address] Physician Site Promotion Agent Physician Site Promotion Agent 03/13/17 documented as of this encounter
--- OUTSIDE RECORDS SUMMARY | 2024-08-15 12:32 | XMS_ITS | Encounter Summary ---
Author Organization [facility] Healthcare Address [address] [place] [address] Care Team Providers Care Able Seaman Name Role Phone Leticia Handley MD Primary Care Provider [phone] Karrie Mcgregor DO Primary Care Provide r Leticia Handley MD Primary Care Provider [phone] Encounter Details Date Type Department Care Team (Late st Contact Info) Description 04/22/2019 Telephone [facility] Radiology [address] [place] [address] Steff Shah, RT Social History Tobacco Use Types Packs/Day Years Used Date Smoking Tobacco: Never Smokeless Tobacco: Never Alcohol Use Standard Drinks/Week Comments Yes 0 (1 standard drink = 0.6 oz pur e alcohol) Sex and Gender Information Value Date Recorded Sex Assigned at Not on file 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
--- OUTSIDE RECORDS SUMMARY | 2024-08-15 12:32 | XMS_ITS | Clinical Summary ---
Author Organization [facility] Address [address] [place] [address] Care Team Providers Care Steel Fabricator Name Role Phone Leticia Handley MD Primary Care Provider [phone] Nilesh Mojica DO Unavailable [phone] Enoc Sheridan PA-C Unavailable [phone] Source Comments [facility],non-owned Affiliates and Associated Physician Practices is amultiple site organization consisting of ambulatory clinics and hospital sitesin [place], [place], [place]. This disclosure is being madepursuant to the Care Everywhere program and may not contain all information available regarding this patient. Last updated 18.[facility] Krossover Allergies No known active allergies Medications * [...] st Contact Info) Description 03/09/2025 10:40 AM HEALTH CARE RECRUITER Office Visit [facility] Orthopedics [facility], [address] [address] Nilesh Mojica DO [facility] [address] [address] Health Maintenance Due Date Last Done Comments MEDICARE AWV 12 MONTHS 1940 DTAP/TDAP/TD VACCINES (1 - Tdap) 1957 PNEUMOCOCCAL VACCINE 50+ (1 of 1 - PCV) 1988 ZOSTER VACCINE (1 of 2) 1988 Respiratory Syncytial Virus (RSV) Vaccine Pt: or over 60 yrs (1 - 1-dose 75+ series) 2013 COVID-19 VACCINE ( - season) 2024 DEPRESSION SCREENING 05/07/2024 03/12/2023 INFLUENZA VACCINE (Season Ended) 2025 02/12/2008, 02/04/2007, 03/22/2006, Additional history exists HEPATITIS B VACCINE Aged Out No longe [...] this topic Medical Devices Implanted Type Area Cosmetics Supervisor Device Identifier Shelf Expiration Date Model / Serial / Lot Stem Tlr Inbone Ii 1 Lg 10mm Ankl Implanted:Qty : 1 on 03/08/2017 by Nilesh Mojica DO at [facility] [place] Left: Ankle [employer] 12/07/2023 [id number] / / [id number] 4 Long Tibial Tray Implanted:Qty : 1 on 03/08/2017 by Nilesh Mojica DO at [facility] [place] Left: Ankle [employer] 01/09/2025 [id number] / / [id number] Cmpnt Tlr Inbone 3 Dome Ankl Sulcus Implanted:Qty : 1 on 03/08/2017 by Nilesh Mojica DO at [facility] [place] Left: Ankle [employer] 12/09/2024 [id number] / / [id number] Infinity Poly Insert Implanted:Qty : 1 on 03/08/2017 by Nilesh Mojica DO at [facility] [place] Left: Ankle [employer] 10/22/2024 [id number] / / [id number] Screw Qckfix Kyler Canc 4.0 X 46 Implanted:Qty : 1 on 03/08/2017 by Nilesh Mojica DO at [facility] [place] Left: Ankle [employer] [id number] / / Plate 61mm 3 Hl Hk Lck Ss Ft/Ankl Mdl Implanted:Qty : 1 on 03/08/2017 by Nilesh Mojica DO at [facility] [place] Left: Ankle [employer] [id number]-[id number] / / Screw 3.5mm 38mm T15 Hexalobe Ft Ankl Implanted:Qty : 1 on 03/08/2017 by Nilesh Mojica DO at [facility] [place] Left: Ankle [employer] AR-[id number] / / Graft Bone Othblst Ii Dbm Canc 1cc Alg - [id number] Implanted:Qty : 1 on 03/08/2017 by Nilesh Mojica DO at [facility] [place] Left: Ankle [employer] 01/01/20192100-010 / [id number] / [id number] Explanted Type Area Cosmetics Supervisor Device Identifier Shelf Expiration Date Model / Serial / Lot Jonathan Total Ank Replacement Explanted:Qty: 1 on 03/08/2017 at [facility] [place] Left: Ankle [employer] TOTAL ANKLE REPL MORE / / Screw Qckfix Kyler Canc 4.0 X 46 Explanted:Qty: 1 on 03/08/2017 by Nilesh Mojica DO at [facility] [place] Left: Ankle [employer] [id number] PTS / / Advance Directives Documents on File Type Date Recorded Patient Gripper Installer Expl anation Adv Directive/Living Will/POA 03/12/2017 8:08 PM * Full Code (Latest Code Status on File) Date Activated Date Inactivated Comments 03/08/2017 12:28 PM 03/09/2017 4:41 PM Care Teams Steel Fabricator Relationship Specialty Start Date End Date Leticia Handley MD PCP - General Internal Medicine 12/06/16 Nilesh Mojica DO Orthopedic Surgery 12/06/16 Enoc Sheridan PA-C [address] [place] [address] Physician Sulfonation Equipment Operator Physician Sulfonation Equipment Operator 03/13/17
--- OUTSIDE RECORDS SUMMARY | 2024-08-15 12:32 | XMS_ITS ---
Author Organization [facility] Address [address] [place], [place] [address] Care Team Providers Care Sample Hand Name Role Phone ANASTASIIA ORNELAS Unavailable [phone] Estela Handley Unavailable Unavailable Allergies No Known Allergies REASON FOR VISIT Patient presents for at-risk foot care . The patient has painful toenails and calluses that are causing difficulty with ambulation and shoegear. The onset is gradual Encounters Encounter Location Date Provider Diagnosis [address] [id number] 05/22/2024 ANASTASIIA ORNELAS Tinea unguium B35.1 ; Pain in right foot M79.671 ; Pain in left foot M79.672 ; Atherosclerosis of [place] arteries of extremities with intermittent claudication, bilateral [...] foot (ICD-10 - M79.672) 05/22/2024 Atherosclerosis of [place] arteries of extremities with intermittent claudication, bilateral [...] develop. Provider Name:OPAL GUZMAN, 09/25/2024 03:10:00 PM, [address] [place] [address], [id number], Progress Notes * KATIE CRUZDOB:1940 (83 yo M)Acc No.[id number]:05/22/2024 Patient: KATIE HOGAN Provider: Whitney Ornelas DPM :1940 A ge:83 Y S ex:Male Date:05/22/2024 Address: [place] [address] Subjective: * Chief Complaints: * Glenroy rm [...] - M79.672 4 . A therosclerosis of [place] arteries of extremities with intermittent claudication, bilateral [...] SKIN LESIONS, 2 TO 4, Modifiers: Q8 35815 DEBRIDE NAIL, 6 OR MORE, Modifiers: 59 , Q8 * Follow Up: 1 0 - 12 weeks (Reason: At-Risk Foot care, sooner if problems develop.) * Billing Information: * Visit Code: * Procedure Codes: 52652 TRIM SKIN LESIONS, 2 TO 4. Modifiers: Q8 36621 DEBRIDE NAIL, 6 OR MORE. Modifiers: 59, Q8 * RVISOR METAL HANGING Sign off status: Completed true * Provider: Whitney Ornelas DPM Date: 0 05/22/2024 Generated for Joseph Gordon/Enzo on: 0 08/15/2024 12:31 PM CDT History [...]
[2024-08-15 12:45] VITALS: BP 119/62; PULSE 63; RESP 16; TEMP 36.4; O2SAT 100; BMI 29.8
--- NOTE | 2024-08-15 12:50 | PC.NURSE ---
Patient here for Venofer infusion. Patient tolerated IV start well. Restingin recliner with BLE elevated. Call light provided.
[2024-08-15] MEDS: IRON SUCROSE COMPLEX 300 MG in SODIUM CHLORIDE 0.9% IV 250 ML 176.67 MG IVPB (12:55)
--- NOTE | 2024-08-15 14:25 | PC.NURSE ---
Patient tolerated infusion well. IV site removed, tip intact. Dressing applied to site. Patient denies any questions or concerns. Left floor ambulatory.
== END 2024-08-15 14:25 | disposition home or self-care (01) ==
PROVIDERS: PCP Internal Medicine; Visit Provider Internal Medicine
DX: D50.9 Iron deficiency anemia, unspecified (principal)
CPT/HCPCS: 96365; 96366; J1756; J7050

== ENCOUNTER 2024-08-26 13:03 | Outpatient (RCR) | payer MEDICARE, SELFPAY ==
--- NOTE | 2024-08-26 13:56 | OPREHPOC ---
Outpatient Therapy Plan of Care This is a Multidisciplinary Plan of Care that may contain components documented by all disciplines (PT, OT, and ST.) PT Problem 1 PT Problem #1 Knowledge Deficit PT Goal 1 Goal / Goal Update 1. independent and compliant with HEP Target Visit 6 Progress Met PT Problem 2 PT Problem #2 Impaired Balance PT Goal 1 Goal / Goal Update 1. tug to be completed in 45 seconds or less safely with WW. not met 2. 5x sit to stand to be completed in 35 second or less safely with only 1 attempt required to stand on the initial stand from chair. not met 3. tinetti to display improvement by 4 points or better. not met Target Visit 30 Progress Partially Met PT Problem 3 PT Problem #3 Impaired Gait PT Goal 1 Goal / Goal Update 1. improve gait efficiency during 2 minute walk test to achieve 180 ft or better with WW New Goal 06/04/24: Pt. will complete the 6 minute walk test over a distance of 500' or greater. not met Target Visit 30 Progress Partially Met PT Problem 4 PT Problem #4 Impaired Functional Mobility PT Goal 1 Goal / Goal Update 1. patient to complete all sit to stand bouts from chair with arms during 1st attempt. not met 2. no falls in the last 4 weeks. not met Target Visit 30 Progress Not Met PT Problem 5 PT Problem #5 Impaired Functional Mobility PT Goal 1 Goal / Goal Update 1. patient to maintain tug, 5x sit to stand, 6mwt, and tinetti within 5% of all measures from re-evaluation note. Target Visit 30 Progress Not Met
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
--- NOTE | 2024-09-24 16:31 | OPREHPOC ---
Outpatient Therapy Plan of Care This is a Multidisciplinary Plan of Care that may contain components documented by all disciplines (PT, OT, and ST.) PT Problem 1 PT Problem #1 Knowledge Deficit PT Goal 1 Goal / Goal Update 1. independent and compliant with HEP Target Visit 6 Progress Met PT Problem 2 PT Problem #2 Impaired Balance PT Goal 1 Goal / Goal Update 1. tug to be completed in 45 seconds or less safely with WW. met today, will continue to monitor for consistent achievement 2. 5x sit to stand to be completed in 35 second or less safely with only 1 attempt required to stand on the initial stand from chair. not met 3. tinetti to display improvement by 4 points or better. not assesed Target Visit 34 Progress Partially Met PT Problem 3 PT Problem #3 Impaired Gait PT Goal 1 Goal / Goal Update 1. improve gait efficiency during 2 minute walk test to achieve 180 ft or better with WW New Goal 06/04/24: Pt. will complete the 6 minute walk test over a distance of 500' or greater. met Target Visit 34 Progress Partially Met PT Problem 4 PT Problem #4 Impaired Functional Mobility PT Goal 1 Goal / Goal Update 1. patient to complete all sit to stand bouts from chair with arms during 1st attempt. not met 2. no falls in the last 4 weeks. met - continue to monitor in the next 4 weeks for consistent achievement Target Visit 34 Progress Partially Met PT Problem 5 PT Problem #5 Impaired Functional Mobility PT Goal 1 Goal / Goal Update 1. patient to maintain tug, 5x sit to stand, 6mwt, and tinetti within 5% of all measures from re-evaluation note. Target Visit 34 Progress Not Met
--- NOTE | 2024-09-24 16:31 | PTOPREEVAL ---
Assessment and note entered by JT File, PT Evaluation Information Assessment Status Re-evaluation Diagnosis Parkinson's Disease ICD-10 Condition Codes (PT) Repeated falls R29.6,Difficulty Walking R26.2, Abnormalities of gait and mobility R26.9 Other ICD-10 Condition Codes ( G20.A1 PT) Onset 03/12/24 Subjective Information Pt reports that he is alright today but just feels slow. Pt denies having any recent falls. Reported Pain Level Pain Score 0: Self Report Assessment PT Clinical Summary Mr. Eagle completed his 30th skilled PT visit today. TUG and 6min walk test improved, meeting his goals. His 5 times sit to stand decreased, and he still can not stand up on the first attempt. Mr. Eagle reported not having any falls in his subjective these past 4 weeks. The pt is a high fall risk and has a progressive neurological disease. Due to the progressive nature of Parkinson's, skilled PT is needed to continue his maintenance program to work on fall prevention, functional mobility, and strength in a safe environment. Plan of Care Interventions Gait Training,Manual Therapy,Neuro Re-education, Patient/Caregiver Education,Therapeutic Activities ,Therapeutic Exercise,Self-Care/Home Management PT Services Indicated Yes Treatment Frequency and continue skilled PT in maintenance program 1x a Duration week for 4weeks (34 total visits) These treatments will address the objective and functional deficits as defined above. The patient will be advanced safely and appropriately in order for the patient to progress towards his/her prior level of function. Additional exercises will be introduced and as well as a comprehensive home exercise program upon discharge, if needed, ?to ensure carryover of functional gains achieved in the clinic. This treatment plan has been reviewed and agreement upon by the patient.
--- NOTE | 2024-10-01 12:23 | PCPTNOTE ---
Cancelled session. In the ER.
--- NOTE | 2024-10-30 13:48 | OPREHPOC ---
Outpatient Therapy Plan of Care This is a Multidisciplinary Plan of Care that may contain components documented by all disciplines (PT, OT, and ST.) PT Problem 1 PT Problem #1 Knowledge Deficit PT Goal 1 Goal / Goal Update 1. independent and compliant with HEP Target Visit 6 Progress Met PT Problem 2 PT Problem #2 Impaired Balance PT Goal 1 Goal / Goal Update 1. tug to be completed in 45 seconds or less safely with WW. met today, will continue to monitor for consistent achievement 2. 5x sit to stand to be completed in 35 second or less safely with only 1 attempt required to stand on the initial stand from chair. not met 3. tinetti to display improvement by 4 points or better. not met Target Visit 38 Progress Partially Met PT Problem 3 PT Problem #3 Impaired Gait PT Goal 1 Goal / Goal Update 1. improve gait efficiency during 2 minute walk test to achieve 180 ft or better with WW New Goal 06/04/24: Pt. will complete the 6 minute walk test over a distance of 500' or greater. not met Target Visit 38 Progress Partially Met PT Problem 4 PT Problem #4 Impaired Functional Mobility PT Goal 1 Goal / Goal Update 1. patient to complete all sit to stand bouts from chair with arms during 1st attempt. not met 2. no falls in the last 4 weeks. met - continue to monitor in the next 4 weeks for consistent achievement Target Visit 38 Progress Partially Met PT Problem 5 PT Problem #5 Impaired Functional Mobility PT Goal 1 Goal / Goal Update 1. patient to maintain tug, 5x sit to stand, 6mwt, and tinetti within 5% of all measures from re-evaluation note. Target Visit 34 Progress Not Met
--- NOTE | 2024-10-30 13:49 | PTOPPROG ---
Assessment and note entered by Jazmyne Shields, PT Evaluation Information Assessment Status Progress Diagnosis Parkinson's Disease ICD-10 Condition Codes (PT) Repeated falls R29.6,Difficulty Walking R26.2, Abnormalities of gait and mobility R26.9 Other ICD-10 Condition Codes ( G20.A1 PT) Onset 03/12/24 Subjective Information Pt reports that he is alright today but just feels slow. Pt denies having any recent falls. Assessment PT Clinical Summary Mr. Eagle completed his 34th skilled PT visit today. He is reporting his left foot has been dragging more the last few weeks. He denies falls. He demonstrates improved 5 times sit to stand time today. He had a decline in his 6 minute walk test and his TUG time stayed relatively the same. He continues to struggle with sit to stand and needs multiple attempts to stand. He requires assist to stand from lower chairs. He also has had a regression in his gait demonstrating increased shuffling on the left LE. He continues to be a high fall risk and has a progressive neurological disease. Due to the progressive nature of Parkinson's, skilled PT is needed to continue his maintenance program to work on fall prevention, functional mobility, and strength in a safe environment. Plan of Care Interventions Gait Training,Manual Therapy,Neuro Re-education, Patient/Caregiver Education,Therapeutic Activities ,Therapeutic Exercise,Self-Care/Home Management PT Services Indicated Yes Treatment Frequency and continue skilled PT in maintenance program 1x a Duration week for 4weeks (38 total visits) These treatments will address the objective and functional deficits as defined above. The patient will be advanced safely and appropriately in order for the patient to progress towards his/her prior level of function. Additional exercises will be introduced and as well as a comprehensive home exercise program upon discharge, if needed, ?to ensure carryover of functional gains achieved in the clinic. This treatment plan has been reviewed and agreement upon by the patient.
== END 2024-11-24 23:59 | disposition home or self-care (01) ==
LOC: CHSPT 13:03
DX: G20.A1 Parkinson's disease without dyskinesia, without mention of fluctuations (principal); R29.6 Repeated falls
CPT/HCPCS: 97110; 97112; 97530; 97750

== ENCOUNTER 2024-09-05 12:36 | Outpatient (CLI) | payer MEDICARE, SELFPAY ==
[2024-09-05 12:58] VITALS: BP 108/54; PULSE 73; RESP 18; TEMP 36; O2SAT 97
[2024-09-05] MEDS: IRON SUCROSE COMPLEX 300 MG in SODIUM CHLORIDE 0.9% IV 250 ML 125 MG IVPB (13:16)
[2024-09-05 15:36] VITALS: BMI 26.8
--- OUTSIDE RECORDS SUMMARY | 2024-09-06 13:16 | XMS_ITS | Encounter Summary ---
Author Organization [facility] Address [address] [place] [address] Care Team Providers Care Director Of Plant Operations Name Role Phone Leticia Handley MD Primary Care Provider Nilesh Mojica DO Unavailable Enoc Sheridan PA-C Unavailable Encounter Details Date Type Department Care Team (Late st Contact Info) Description 12/06/2016 [facility] Outpatient Visit [facility] Orthopedics - Radiology [address] [place] [address] Nilesh Mojica [facility] Medical [address] [address] Social History Tobacco Use Types Packs/Day Years Used Date Smoking Tobacco: Never Smokeless Tobacco: Never Sex and Gender Information Value Date Recorded Sex Assigned at Not on file Legal Sex Male 11:18 AM CDT Gender Identity Not on file Sexual Orientation Not on file documented as of this encounter Plan of Treatment Upcoming Encounters Date Type Department Care Team (Late st Contact Info) Description 03/09/2025 10:40 AM LAPEL STITCHER Office Visit [facility] Health Orthopedics [address], [address] [address] Nilesh Mojica [address] [address] documented as of this encounter Visit Diagnoses Not on filedocumented in this encounter Care Teams Director Of Plant Operations Relationship Specialty Start Date End Date Leticia Handley MD PCP - General Internal Medicine 12/06/16 Nilesh Mojica DO Orthopedic Surgery 12/06/16 Enoc Sheridan PA-C [address] [place] [address] Physician Grain Oilseed Or Pasture Farm Worker Physician Grain Oilseed Or Pasture Farm Worker 03/13/17 documented as of this encounter
--- OUTSIDE RECORDS SUMMARY | 2024-09-06 13:16 | XMS_ITS ---
Author Organization [facility] Address [address] [place], [place] [address] Care Team Providers Care Spinning Supervisor Name Role Phone ANASTASIIA ORNELAS Unavailable [phone] Jagdish Handleyonam Unavailable Unavailable CARLOS STEVE Unavailable [phone] REASON FOR VISIT *General care Encounters Encounter Location Date Provider Diagnosis [address] [id number] 04/10/2024 CARLOS STEVE Other hammer toe(s) (acquired), right foot M20.41 ; Tinea unguium B35.1 ; Other hammer toe(s) (acquired), left foot M20.42 ; Pain in right toe(s) M79.674 ; Pain in left toe(s) M79.675 ; Pain in right foot M79.671 ; Pain in left foot M79.672 ; 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[place] arteries of extremities, bilateral legs I70.203 and [...] (ICD-10 - M79.672) 04/10/2024 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[place] arteries of extremities, bilateral legs (ICD-10 - [...] OTC and prescription treatments. 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[place] arteries of extremities, bilateral legs Patient educated [...] Reason: Provider Name:OPAL GUZMAN, 09/25/2024 03:10:00 PM, [address] [place] [address], [id number], Progress Notes * KATIE CRUZDOB:1940 (83 yo M)Acc No.[id number]:04/10/2024 Patient: Glenroy GOOD KATIE Provider: Fara STEVE :1940 A ge:83 Y S ex:Male Date:04/10/2024 Address: [facility] Subjective: * Chief Complaints: * 1 . [...] Patient denies c hest pain, history of DC, irregular heartbeat. M usculoskeletal: Patient complains of [...] M79.672 8 . U nspecified atherosclerosis of [place] arteries of extremities, bilateral legs - I70.203 [...] were emphasized. 3. U nspecified atherosclerosis of [place] arteries of extremities, bilateral legs Notes: Patient [...] LESIONS, 2 TO 4, Modifiers: Q8 , 06616 DEBRIDE NAIL, 6 OR MORE, Modifiers: 59 , Q8 * Follow Up: 3 Months * Billing Information: * Visit Code: * Procedure Codes: 48489 TRIM SKIN LESIONS, 2 TO 4. Modifiers: Q8 39181 DEBRIDE NAIL, 6 OR MORE. Modifiers: 59, Q8 * L PRESS SET UP OPERATOR RADIAL Sign off status: Completed true * Provider: Fara STEVE Date: 1 06/11/2023 Generated for Joseph jang/Triny/Daneilitting on: 0 09/06/2024 01:16 PM CDT History and Physical Notes * [...]
--- OUTSIDE RECORDS SUMMARY | 2024-09-06 13:16 | XMS_ITS | Clinical Summary ---
Author Organization [facility] Address [address] [place] [address] Care Team Providers Care Hand Folder Name Role Phone Leticia Handley MD Primary Care Provider [phone] Allergies No known active allergies Medications clopidogrel [...] opa (SINEMET) 25-250 MG tabletIndicatio ns:Parkinson's disease ([facility]) TAKE 1 TABLET BY MOUTH 4 TIMES DAILY 360 tablet 3 03/24/2022 Active pramipexole (MIRAPEX) 1 MG tabletIndicatio ns:Parkinson's disease ([facility]) Take 3 tablets (3 mg [...] artery disease of n ative artery of elim ira heart with stable angina pectoris 08/14/2016 Overview (05/27/2019): Overview: 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 Dyslipidemia associated with type 2 diabetes mellitus ([facility]) 11/15/2015 Overview (05/27/2019): Overview: DM type 2 with diabetic dyslipidemia Hypertensive heart disease w ith congestive heart failure ([facility]) 08/02/2015 Overview (05/27/2019): Overview: Hypertensive heart disease with diastolic heart failure YANET on CPAP 08/02/2015 Overview (05/27/2019): Overview: YANET on CPAP Benign hypertension 04/26/2015 Overview (05/27/2019): Overview: HTN (hypertension), benign Dyslipidemia 04/26/2015 Overview (05/27/2019): Overview: Mixed dyslipidemia Cardiomyopathy ([facility]) 04/26/2015 Overview (05/27/2019): Overview: Cardiomyopathy Myocardial infarction ([facility]) 04/26/20 15 Overview (05/27/2019): Overview: [...] CDT Respiratory Rate 18 07/13/2021 2:45 PM STRUCTURAL IRON ERECTOR Oxygen Saturation 96% 12/16/2021 8:52 AM CDT [...] - 1-dose 75+ series) 2013 Pneumococcal Vaccine: 50+ Years (2 of 2 - PPSV23) 04/29/2015 03/04/2015 Hemoglobin A1C 11/27/2022 05/30/2022 COVID-19 [...] age to complete this topic Insurance MEDICARE [employer] MEDICARE [employer] Care Teams Hand Folder Relationship Specialty Start Date End Date Leticia Handley MD [address] [place] [address] PCP - General INTERNAL MEDICINE 08/09/18
--- OUTSIDE RECORDS SUMMARY | 2024-09-06 13:16 | XMS_ITS | Patient Health Record ---
Author Organization [facility] Address [address] [place], [place] [address] Care Team Providers Care Core Shaper Top Name Role Phone EVYMoisés ANASTASIIA Unavailable [phone] Estela Handley Unavailable Unavailable CARLOS STEVE Unavailable [phone] Allergies No Known Allergies Reason For Referral No Information Immunizations Vaccine Route Administration Date Status Comme nts Influenza, high dose seasonal Unknown 02/12/2023 Admini stered Vital Signs Height-cm 167.64 cm 11/29/2023 Weight-kg 90.72 kg 11/29/2023 Height 66.00 in 11/29/2023 Weight 200 lbs 11/29/2023 BMI 32.28 kg/m2 11/29/2023 Encounters Encounter Location Date Provider Diagnosis [address] [id number] 07/24/2024 ANASTASIIA ORNELAS Tinea unguium B35.1 ; Pain in right foot M79.671 ; Pain in left foot M79.672 ; Atherosclerosis of [place] arteries of extremities with intermittent claudication, bilateral legs I70.213 and Acquired keratosis [keratoderma] palmaris et plantaris L85.[address] [id number] 09/27/2023 CARLOS STEVE Other hammer toe(s) (acquired), right foot M20.41 ; Tinea unguium B35.1 ; Other hammer toe(s) (acquired), left foot M20.42 ; Pain in right toe(s) M79.674 ; Pain in left toe(s) M79.675 ; Pain in right foot M79.671 ; Pain in left foot M79.672 ; 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[place] arteries of extremities, bilateral legs I70.203 and Acquired keratosis [keratoderma] palmaris et plantaris L85.[address] [id number] 11/29/2023 CARLOS STEVE Other hammer toe(s) (acquired), right foot M20.41 ; Tinea unguium B35.1 ; Other hammer toe(s) (acquired), left foot M20.42 ; Pain in right toe(s) M79.674 ; Pain in left toe(s) M79.675 ; Pain in right foot M79.671 ; Pain in left foot M79.672 ; 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[place] arteries of extremities, bilateral legs I70.203 and Acquired keratosis [keratoderma] palmaris et plantaris L85.[address] [id number] 01/31/2024 CARLOS STEVE Other hammer toe(s) (acquired), right foot M20.41 ; Tinea unguium B35.1 ; Other hammer toe(s) (acquired), left foot M20.42 ; Pain in right toe(s) M79.674 ; Pain in left toe(s) M79.675 ; Pain in right foot M79.671 ; Pain in left foot M79.672 ; 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[place] arteries of extremities, bilateral legs I70.203 and Acquired keratosis [keratoderma] palmaris et plantaris L85.[address] [id number] 04/10/2024 CARLOS STEVE Other hammer toe(s) (acquired), right foot M20.41 ; Tinea unguium B35.1 ; Other hammer toe(s) (acquired), left foot M20.42 ; Pain in right toe(s) M79.674 ; Pain in left toe(s) M79.675 ; Pain in right foot M79.671 ; Pain in left foot M79.672 ; 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[place] arteries of extremities, bilateral legs I70.203 and Acquired keratosis [keratoderma] palmaris et plantaris L85.[address] [id number] 05/22/2024 ANASTASIIA ORNELAS Tinea unguium B35.1 ; Pain in right foot M79.671 ; Pain in left foot M79.672 ; Atherosclerosis of [place] arteries of extremities with intermittent claudication, bilateral [...] toe(s) (ICD-10 - M79.674) 07/24/2024 Atherosclerosis of [place] arteries of extremities with intermittent claudication, bilateral legs (ICD-10 - I70.213) 05/22/2024 Atherosclerosis of [place] arteries of extremities with intermittent claudication, bilateral [...] (ICD-10 - M79.672) 09/27/2023 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[place] arteries of extremities, bilateral legs (ICD-10 - I70.203) Patient educated on risks and aggravating factors of PVD, including conservative treatment options such as a diet and exercise regimen to aid in slowing progression of vascular disease 11/29/2023 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[place] arteries of extremities, bilateral legs (ICD-10 - I70.203) Patient educated on risks and aggravating factors of PVD, including conservative treatment options such as a diet and exercise regimen to aid in slowing progression of vascular disease 01/31/2024 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[place] arteries of extremities, bilateral legs (ICD-10 - I70.203) Patient educated on risks and aggravating factors of PVD, including conservative treatment options such as a diet and exercise regimen to aid in slowing progression of vascular disease 04/10/2024 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[place] arteries of extremities, bilateral legs (ICD-10 - [...] Details Provider Name:OPAL GUZMAN, 09/25/2024 03:10:00 PM, [address] [place] [address], [id number], Insurance Providers Payer Name Payer Address Payer Phone Subscriber Number Group Number Insured Name Patient Relationship to Insured Coverage Start Date Coverage End Date Medicare Part B [place] [address] [place] [address] [id number] KATIE CRUZ Self - patient is the insured [facility] ([facility]) ATTN CLAIMS [address] [place] [address] [id number] KATIE CRUZ Self - patient is the insured 4
--- OUTSIDE RECORDS SUMMARY | 2024-09-06 13:16 | XMS_ITS | Clinical Summary ---
Author Organization [facility] Address [address] [place] [address] Care Team Providers Care Elevator Builder Name Role Phone Leticia Handley MD Primary Care Provider [phone] Nilesh Mojica DO Unavailable [phone] Enoc Sheridan PA-C Unavailable [phone] Source Comments [facility],non-owned Affiliates and Associated Physician Practices is amultiple site organization consisting of ambulatory clinics and hospital sitesin [place], [place], [place] and [place]. This disclosure is being madepursuant to the Care Everywhere program and may not contain all information available regarding this patient. Last updated 18.[facility] TableGrabber Allergies No known active allergies Medications * Be aware that medications may not be up to date on this document. Alwaysverify current medications with the patient. clopidogrel (PLAVIX) 75 MG tablet Take 75 [...] mg by mouth once daily Active Multiple Vitamins-Minera ls (MULTIVITAL PO) Take 1 tablet by mouth once daily Active aspirin (ASPIRIN) 81 MG tabletIndicatio ns:H/O total ankle replacement, left Take 81 mg by mouth once daily Active metoprolol tartrate (LOPRESSOR) 25 MG tablet 03/07/2018 Active latanoprost (XALATAN) 0.005 % ophthalmic solution 03/11/2018 Active furosemide (Lasix) 40 MG tablet Take 1 (one) tablet by mouth once daily 12/29/2022 Active levothyroxine (Synthroid) 75 MCG tablet Take 1 (one) tablet by mouth once daily 02/25/2023 Active carbidopa-levod opa (Sinemet) 25-250 MG tablet Take 1 (one) [...] st Contact Info) Description 03/09/2025 10:40 AM GENERAL DENTIST Office Visit [facility] [address], [address] [address] Nilesh Mojica DO [address] [address] Health Maintenance Due Date Last [...] this topic Medical Devices Implanted Type Area Geothermal System Installer Device Identifier Shelf Expiration Date Model / Serial / Lot Stem Tlr Inbone Ii 1 Lg 10mm Ankl Implanted:Qty : 1 on 03/08/2017 by Nilesh Mojica DO at [facility] Left: Ankle RingCaptcha 12/07/2023 [id number] / / [id number] 4 Long Tibial Tray Implanted:Qty : 1 on 03/08/2017 by Nilesh Mojica DO at [facility] Left: Ankle RingCaptcha 01/09/2025 [id number] / / [id number] Cmpnt Tlr Inbone 3 Dome Ankl Sulcus Implanted:Qty : 1 on 03/08/2017 by Nilesh Mojica DO at [facility] Left: Ankle RingCaptcha 12/09/2024 [id number] / / [id number] Infinity Poly Insert Implanted:Qty : 1 on 03/08/2017 by Nilesh Mojica DO at [facility] Left: Ankle RingCaptcha 10/22/2024 [id number] / / [id number] Screw Qckfix Kyler Canc 4.0 X 46 Implanted:Qty : 1 on 03/08/2017 by Nilesh Mojica DO at [facility] Left: Ankle Arthrex Inc [id number] / / Plate 61mm 3 Hl Hk Lck Ss Ft/Ankl Mdl Implanted:Qty : 1 on 03/08/2017 by Nilesh Mojica DO at [facility] Left: Ankle Arthrex Inc AR-8943H-03 / / Screw 3.5mm 38mm T15 Hexalobe Ft Ankl Implanted:Qty : 1 on 03/08/2017 by Nilesh Mojica DO at [facility] Left: Ankle Arthrex Inc AR-8835-38 / / Graft Bone Othblst Ii Dbm Canc 1cc Alg - [id number] Implanted:Qty : 1 on 03/08/2017 by Nilesh Mojica DO at [facility] Left: Ankle Integra Neurosciences 01/01/2019 / [id number] / [id number] Explanted Type Area Geothermal System Installer Device Identifier Shelf Expiration Date Model / Serial / Lot Jonathan Total Ank Replacement Explanted:Qty: 1 on 03/08/2017 at [facility] Left: Ankle More [employer] Inc TOTAL ANKLE REPL MORE / / Screw Qckfix Kyler Canc 4.0 X 46 Explanted:Qty: 1 on 03/08/2017 by Nilesh Mojica DO at [facility] Left: Ankle Arthrex Inc AR-[id number] PTS / / Insurance MEDICARE MEDICARE SUPPLEMENT PAYOR GENERIC [facility] Advance Directives Documents on File Type Date Recorded Patient Radiotelegraph Operator Expl anation Adv Directive/Living Will/POA 03/12/2017 8:08 PM * Full Code (Latest Code Status on File) Date Activated Date Inactivated Comments 03/08/2017 12:28 PM 03/09/2017 4:41 PM Care Teams Elevator Builder Relationship Specialty Start Date End Date Leticia Handley MD PCP - General Internal Medicine 12/06/16 Nilesh Mojica DO Orthopedic Surgery 12/06/16 Enoc Sheridan, PAMonieC [address] [place] [address] Physician Woods Manager Physician Woods Manager 03/13/17
--- OUTSIDE RECORDS SUMMARY | 2024-09-06 13:16 | XMS_ITS | Encounter Summary ---
Author Organization [facility] Healthcare Address [address] [place] [address] Care Team Providers Care Ham Stripper Name Role Phone Leticia Handley MD Primary Care Provider [phone] Karrie Mcgregor DO Primary Care Provide r Leticia Handley MD Primary Care Provider [phone] Encounter Details Date Type Department Care Team (Late st Contact Info) Description 04/22/2019 Telephone [facility] Radiology [address] [place] [address] Steff Shah, RT Social History Tobacco Use Types Packs/Day Years Used Date Smoking Tobacco: Never Smokeless Tobacco: Never Alcohol Use Standard Drinks/Week Comments Yes 0 (1 standard drink = 0.6 oz pur e alcohol) Sex and Gender Information Value Date Recorded Sex Assigned at Not on file 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
--- OUTSIDE RECORDS SUMMARY | 2024-09-06 13:16 | XMS_ITS | Referral Summary ---
Author Organization [facility] [address] [facility] [address] Address [address] [place] [address] Care Team Providers Care Retail Client Solutions Analyst Name Role Phone Leticia Handley MD Primary Care Provider [phone] Encounters Date Type Department Care Team Description 09/02/2024 Telephone [facility] Movement Disorders [facility] Advanced Medicine [address]th [place] [address] Zelda Negron, RN 08/20/2024 Orders Only [facility] Movement Disorders [facility] Advanced Medicine 6th [place] [address] [place] [address] Isiah Brown MD PhD Sialorrhea (Primary Dx) 08/13/2024 Telephone [facility] Movement Disorders [address] [facility] Advanced Medicine 7th [place] [address] Zelda Negron, RN 08/12/2024 1:30 PM CDT Office Visit [facility] Movement Disorders [facility] Advanced Medicine [address]th [place] [address] Isiah Brown MD PhD Parkinson's disease without dyskinesia or fluctuating manifestations (HCC) (Primary Dx); Sialorrhea 06/27/2024 Telephone [facility] Medical Group Cardiology [address] [place] [address] Freeman Chavira MD 06/16/2024 Telephone [facility] Medical Group Cardiology [address] [place] [address] Freeman Chavira MD samples from Last 3 Months Allergies No known active allergies Medications bimatoprost (Lumigan) 0.01 % ophthalmic drops Administer 1 drop into both eyes nightly 06/03/19 22 Active aspirin 81 mg enteric coated tablet Take 1 tablet (81 mg total) by mouth daily 30 tablet 1 06/17/19 23 Active levothyroxine (SYNTHROID) 75 mcg tablet Take 1 tablet (75 mcg total) by mouth tool technician before breakfast 30 tablet 1 06/17/19 23 [...] mg total) by mouth daily 025 Discontinued timolol (TIMOPTIC) 0.5 % ophthalmic solution 1 drop 2 (two) times a day 025 Discontinued(T herapy completed) brimonidine (ALPHAGAN) 0.2 % ophthalmic solution 1 drop 3 (three) times a day 025 Discontinued(P atient Reported) carbidopa-levod opa (SINEMET) 25-250 mg per tabletIndicatio ns:Idiopathic Parkinsonism Take 2.5 tablets by mouth 3 (three) times a day 675 tablet 3 09/18/19 24 025 Discontinued(R eorder) Hospital, Clinic, or Other Facility Administered Medication Ordered Dose Route Frequency Start Date End Date Status onabotulinumtoxin A (BOTOX) injection 100 UnitsIndications:Rita lorrhea 100 Units IM Once for Clinic-Administer ed Medication 09/30/2024 09/29/2025 Active Active Problems Problem Noted Date Diagnosed [...] we should send an updated script to [facility] in 2-3 weeks) -start glycopyrrolate 1mg TID for sialorrhea -if ineffective consider Botox injections Assessment & Plan (03/12/2024 1:31 PM MENTAL HEALTH ASSISTANT): 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 [...] placement 11/29/2016 Coronary artery disease invo lving [place] coronary artery of [place] heart without angina pectoris 08/14/2016 Overview (09/29/2016): Coronary artery disease involving [place] coronary artery of [place] heart with other form of angina pectoris [...] relatives? 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 Gender Identity Not on file Sexual Orientation Not on file Last Filed Vital Signs Vital Sign Reading Time Taken Comments Blood Pressure 137/71 08/12/2024 12:47 PM CDT Pulse 66 08/12/2024 12:47 PM CDT Temperature 36.8 C (98.2 F) 08/12/2024 12:47 PM CDT Respiratory Rate 18 04/10/2024 2:18 PM MENTAL HEALTH ASSISTANT Oxygen Saturation 97% 04/10/2024 2:18 PM MENTAL HEALTH ASSISTANT Inhaled Oxygen Concentration - - Weight 84.4 kg (186 lb) 08/12/2024 12:47 PM CDT Height 167.6 cm (5' 5.98 ) 08/12/2024 12:47 PM C DT Body Mass Index 30.04 08/12/2024 12:47 PM CDT Plan of Treatment Not on file Medical Devices Implanted Type Area Speed Winder Device Identifier Shelf Expiration Date Model / Serial / Lot Ziggy Medical Plate Bone Low Profile 6 Hole H Shape Ti 115.102.06 - [id number] Implanted:Qty: 1 on 06/05/2022 by Nicolás Arevalo MD at [facility] Plate N/A: Sternum FernandoSunshine Heartet Inc 115.102. 06 / / Ziggy Medical Plate Bone Low Profile 4 Hole Box Ti 115.103.04 - [id number] Implanted:Qty: 1 on 06/05/2022 by Nicolás Arevalo MD at [facility] Plate N/A: Sternum Fernando Biomet Inc 115.103. 04 / / Ziggy Medical Plate Bone Low Profile 6 Hole O Concave Ti 115.604.06 - [id number] Implanted:Qty: 1 on 06/05/2022 by Nicolás Arevalo MD at [facility] Plate N/A: Sternum Fernando Biomet Inc 115.604. 06 / / Bhatti Lifesciences Von-Tim ds Perimount Magna Ease 23mm Bioprosthesis [id number] - [id number] - [id number] Implanted:Qty: 1 on 06/05/2022 by Nicolás Arevalo MD at [facility] Prosthetic Valve N/A: Heart Bhatti Lifesciences 07/18/2024 [id number] 3MM / [id number] / Ziggy Medical Screw Bone Slf Drl Full Thread Locking 3.5x14mm Ti 100.035.14 - [id number] Implanted:Qty: 10 on 06/05/2022 by Nicolás Arevalo MD at [facility] Screw N/A: Sternum Fernando Biomet Inc 100.035. 14 / / Ziggy Medical Screw Bone Slf Drl Full Thread Locking 3.5x16mm Ti 100.035.16 - [id number] Implanted:Qty: 6 on 06/05/2022 by Nicolás Arevalo MD at [facility] Screw N/A: Sternum Fernando [employer] Inc 100.035. 16 / / Procedures Procedure Name Priority Date/Time Associated Diagnosis Comments POCT LIPID PANEL Routine 08/02/2023 10:2 9 AM CDT Coronary artery disease involving [place] coronary artery of [place] heart without angina pectoris EGFR Routine 06/16/2022 10:03 AM MENTAL HEALTH ASSISTANT HEMOGLOBIN A1C Routine 05/30/2022 12:59 PM MENTAL HEALTH ASSISTANT Preop testing Type 2 diabetes mellitus with [...] Final Result * eGFR (06/16/2022 10:03 AM MENTAL HEALTH ASSISTANT) eGFR 67 mL/min/1. 73 m2 RYAN LUX [...] reviewed 2021. Blood 06/16/2022 10:0 3 AM MENTAL HEALTH ASSISTANT 06/16/2022 10:03 AM MENTAL HEALTH ASSISTANT Nicolás Arevalo MD LAB BLOOD ORDERABLES Final Res ult RYAN LUX [address] Disha Cintron Department [place] [address] * Hemoglobin A1c (05/30/2022 12:59 PM MENTAL HEALTH ASSISTANT) Hgb A1C 5.5 4.0 - 5.6 % RYAN LUX Estimated Average Glucose 111 mg/dL RYAN LUX Comment: The ADA recommends reporting an estimated Average Glucose (eAG) with all Hemoglobin A1c results using the equation derived from a study of 507 normal and diabetic adults. Minority populations were underrepresented and children were not included. (Diabetes Care 31:1556-9565, 2008). The eAG is not equivalent to a fasting glucose. Blood 05/30/2022 12:5 9 PM MENTAL HEALTH ASSISTANT 05/30/2022 1:03 PM MENTAL HEALTH ASSISTANT us Nicolás Arevalo MD LAB BLOOD ORDERABLES Final Res ult RYAN LUX [address] Disha Cintron Department [place] [address] from Last 3 Months or Most Recently Relevant to Health Maintenance Insurance MEDICARE [facility] MEDICARE SUPPLEMENT INSURANCE MEDICARE [facility] MEDICARE SUPPLEMENT MEDICARE [facility] MEDICARE SUPPLEMENT Advance Directives For more information, please contact: [phone] * Full Code (Latest Code Status on File) Date Activated Date Inactivated Comments 06/05/2022 2:49 PM 06/16/2022 5:28 PM Care Teams Retail Client Solutions Analyst Relationship Specialty Start Date End Date Leticia Handley MD [address] [place] [address] PCP - General Internal Medicine 05/08/23
--- OUTSIDE RECORDS SUMMARY | 2024-09-06 13:16 | XMS_ITS ---
Author Organization [facility] Address [address] [place], [place] [id number] Care Team Providers Care Manager Construction Name Role Phone ANASTASIIA ORNELAS Unavailable [phone] Estela Handley Unavailable Unavailable REASON FOR VISIT Patient presents for at-risk foot care . The patient has painful toenails and calluses that are causing difficulty with ambulation and shoegear. The onset is gradual Encounters Encounter Location Date Provider Diagnosis [address] [id number] 07/24/2024 ANASTASIIA ORNELAS Tinea unguium B35.1 ; Pain in right foot M79.671 ; Pain in left foot M79.672 ; Atherosclerosis of [place] arteries of extremities with intermittent claudication, bilateral [...] foot (ICD-10 - M79.672) 07/24/2024 Atherosclerosis of [place] arteries of extremities with intermittent claudication, bilateral [...] develop. Provider Name:OPAL GUZMAN, 09/25/2024 03:10:00 PM, [address] [place] [address], [phone], Progress Notes * KATIE CRUZDOB:1940 (83 yo M)Acc No.[id number]:07/24/2024 Patient: KATIE HOGAN Provider: Whitney Ornelas DPM :1940 A ge:83 Y S ex:Male Date:07/24/2024 Address:[address] [place] [id number] Subjective: * Chief Complaints: * 1 . [...] seen by Dr. Handley was 06/2024., Initials [facility]. * Medical History: Objective: * Vitals: * [...] - M79.672 4 . A therosclerosis of [place] arteries of extremities with intermittent claudication, bilateral [...] 1055 TRIM SKIN LESION, Modifiers: Q8 , 40362 DEBRIDE NAIL, 6 OR MORE, Modifiers: 59 , Q8 * Follow Up: 1 0 - 12 weeks (Reason: At-Risk Foot care, sooner if problems develop.) * Billing Information: * Visit Code: * Procedure Codes: 77800 TRIM SKIN LESION. Modifiers: Q8 99762 DEBRIDE NAIL, 6 OR MORE. Modifiers: 59, Q8 * Electronic signature of ANASTASIIA ORNELAS DPM on 09/06/2024 at 01:16 PM CDT Sign off status: Pending * Provider: Whitney Ornelas DPM Date: 0 07/24/2024 Generated for Joseph jang/Triny/Enzo on: 0 09/06/2024 01:16 PM CDT History [...]
--- OUTSIDE RECORDS SUMMARY | 2024-09-06 13:16 | XMS_ITS | Clinical Summary ---
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 [place] Advanced Medicine [address] [place] [address] Zelda Negron RN 08/20/2024 Orders Only [facility] Movement Disorders [facility] [place] Advanced Medicine 6th [place] [address] [place] [address] Isiah Brown MD PhD Sialorrhea (Primary Dx) 08/13/2024 Telephone [facility] Movement Disorders [facility] [place] Advanced Medicine [address] [place] [address] Zelda Negron RN 08/12/2024 1:30 PM CDT Office Visit [facility] Movement Disorders [address] [place] [address] Advanced Medicine [address] [place] [address] Isiah Brown MD PhD Parkinson's disease without dyskinesia or fluctuating manifestations (HCC) (Primary Dx); Sialorrhea 06/27/2024 Telephone [facility] Cardiology [address] [place] [address] Freeman Chavira MD 06/16/2024 Telephone [facility] Card[facility] [address] [place] [address] Freeman Chavira MD samples from Last 3 Months Surgical History Surgery [...] Hypertension Hypertension Adiposity Obesity Sleep apnea CPAP VT (myocardial infarction) (HCC) 2014 CAD (coronary artery [...] relatives? Three times a week 06/06/2022 Attends [employer] Not on file 06/06 Active Member [...] on file Legal Sex Male 12:29 AM ORDER PICKER/ASSEMBLER Gender Identity Not on file Sexual Orientation Not on file Obstetrics History Last Filed Vital Signs Vital Sign Reading Time Taken Comments Blood Pressure 137/71 08/12/2024 12:47 PM CDT Pulse 66 08/12/2024 12:47 PM CDT Temperature 36.8 C (98.2 F) 08/12/2024 12:47 PM CDT Respiratory Rate 18 04/10/2024 2:18 PM ORDER PICKER/ASSEMBLER Oxygen Saturation 97% 04/10/2024 2:18 PM ORDER PICKER/ASSEMBLER Inhaled Oxygen Concentration - - Weight 84.4 [...] 06/16/2022, 02/0 01/2023, 06/14/2022, Additional history exists Lipid Panel 08/01/2024 08/02/2023, 07/05, 05/24/2021, Additional history exists Depression Screening 09/17/2024 09/18/2023 Influenza Vaccine (Season Ended) 2025 01/31/2019, 01/25/2018, 02/15/2017, Additional history exists Pneumococcal vaccine 65+ Completed 03/04/2015, 0511/2012 Medical Devices Implanted Type Area Supervisor Rocket Propellant Plant Device Identifier Shelf Expiration Date Model / Serial / Lot Ziggy Medical Plate Bone Low Profile 6 Hole H Shape Ti 115.102.06 - [id number] Implanted:Qty: 1 on 06/05/2022 by Nicolás Arevalo MD at [facility] Plate N/A: Sternum Fernando [employer] Inc 115.102. 06 / / Ziggy Medical Plate Bone Low Profile 4 Hole Box Ti 115.103.04 - [id number] Implanted:Qty: 1 on 06/05/2022 by Nicolás Arevalo MD at [facility] Plate N/A: Sternum Fernando [employer] Inc 115.103. 04 / / Ziggy Medical Plate Bone Low Profile 6 Hole O Concave Ti 115.604.06 - [id number] Implanted:Qty: 1 on 06/05/2022 by Nicolás Arevalo MD at [facility] Plate N/A: Sternum Fernando [employer] Inc 115.604. 06 / / Bhatti Lifesciences Von-Tim ds Perimount Magna Ease 23mm Bioprosthesis [id number] - [id number] - [id number] Implanted:Qty: 1 on 06/05/2022 by Nicolás Arevalo MD at [facility] Prosthetic Valve N/A: Heart Bhatti Lifesciences 07/18/2024 [id number] 3MM / [id number] / Ziggy Medical Screw Bone Slf Drl Full Thread Locking 3.5x14mm Ti 100.035.14 - [id number] Implanted:Qty: 10 on 06/05/2022 by Nicolás Arevalo MD at [facility] Screw N/A: Sternum Fernando [employer] Inc 100.035. 14 / / Ziggy Medical Screw Bone Slf Drl Full Thread Locking 3.5x16mm Ti 100.035.16 - [id number] Implanted:Qty: 6 on 06/05/2022 by Nicolás Arevalo MD at [facility] Screw N/A: Sternum Fernando [employer] Inc 100.035. 16 / / Procedures Procedure Name Priority Date/Time Associated Diagnosis Comments POCT LIPID PANEL Routine 08/02/2023 10:2 9 AM CDT Coronary artery disease involving [place] coronary artery of [place] heart without angina pectoris EGFR Routine 06/16/2022 10:03 AM ORDER PICKER/ASSEMBLER HEMOGLOBIN A1C Routine 05/30/2022 12:59 PM ORDER PICKER/ASSEMBLER Preop testing Type 2 diabetes mellitus with [...] Final Result * eGFR (06/16/2022 10:03 AM ORDER PICKER/ASSEMBLER) eGFR 67 mL/min/1. 73 m2 RYAN LUX [...] reviewed 2021. Blood 06/16/2022 10:0 3 AM ORDER PICKER/ASSEMBLER 06/16/2022 10:03 AM ORDER PICKER/ASSEMBLER Nicolás Arevalo MD LAB BLOOD ORDERABLES Final Res ult RYAN LUX [address] Disha Cintron Department [place] [address] * Hemoglobin A1c (05/30/2022 12:59 PM ORDER PICKER/ASSEMBLER) Hgb A1C 5.5 4.0 - 5.6 % RYAN LUX Estimated Average Glucose 111 mg/dL RYAN LUX Comment: The ADA recommends reporting an estimated Average Glucose (eAG) with all Hemoglobin A1c results using the equation derived from a study of 507 normal and diabetic adults. Minority populations were underrepresented and children were not included. (Diabetes Care 31:3125-3057, 2008). The eAG is not equivalent to a fasting glucose. Blood 05/30/2022 12:5 9 PM ORDER PICKER/ASSEMBLER 05/30/2022 1:03 PM ORDER PICKER/ASSEMBLER us Nicolás Arevalo MD LAB BLOOD ORDERABLES Final Res ult RYAN LUX [address] Disha Cintron Department [place] [address] from Last 3 Months or Most Recently Relevant to Health Maintenance Insurance MEDICARE [facility] MEDICARE SUPPLEMENT INSURANCE MEDICARE [facility] MEDICARE SUPPLEMENT MEDICARE [facility] MEDICARE SUPPLEMENT Advance Directives For more information, please contact: [phone] * Full Code (Latest Code Status on File) Date Activated Date Inactivated Comments 06/05/2022 2:49 PM 06/16/2022 5:28 PM Care Teams Ip Network Architect Relationship Specialty Start Date End Date Leticia Handley MD [address] [place], [place] [id number] PCP - General Internal Medicine 05/08/23
--- OUTSIDE RECORDS SUMMARY | 2024-09-06 13:17 | XMS_ITS ---
Author Organization [facility] Address [address] [place], [place] [address] Care Team Providers Care Patient Transport Orderly Name Role Phone ANASTASIIA ORNELAS Unavailable [phone] Estela Handley Unavailable Unavailable Allergies No Known Allergies REASON FOR VISIT Patient presents for at-risk foot care . The patient has painful toenails and calluses that are causing difficulty with ambulation and shoegear. The onset is gradual Encounters Encounter Location Date Provider Diagnosis [address] [id number] 05/22/2024 ANASTASIIA ORNELAS Tinea unguium B35.1 ; Pain in right foot M79.671 ; Pain in left foot M79.672 ; Atherosclerosis of [place] arteries of extremities with intermittent claudication, bilateral [...] foot (ICD-10 - M79.672) 05/22/2024 Atherosclerosis of [place] arteries of extremities with intermittent claudication, bilateral [...] develop. Provider Name:OPAL GUZMAN, 09/25/2024 03:10:00 PM, [address] [place] [address], [id number], Progress Notes * KATIE CRUZDOB:1940 (83 yo M)Acc No.[id number]:05/22/2024 Patient: KATIE HOGAN Provider: Whitney Ornelas DPM :1940 A ge:83 Y S ex:Male Date:05/22/2024 Address: [place] [address] Subjective: * Chief Complaints: * Glenroy rm [...] - M79.672 4 . 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 Modifiers: Q8 22813 DEBRIDE NAIL, 6 OR MORE. Modifiers: 59, Q8 * SERVICES DIRECTOR Sign off status: Completed true * Provider: Whitney Ornelas DPM Date: 0 05/22/2024 Generated for Joseph Gordon/Enzo on: 0 09/06/2024 01:16 PM CDT History [...]
--- OUTSIDE RECORDS SUMMARY | 2024-09-06 13:17 | XMS_ITS | Encounter Summary ---
Author Organization [facility] Address [address] [place] [address] Care Team Providers Care Xm1 Tank Driver Name Role Phone Leticia Handley MD Primary Care Provider [phone] Karrie Mcgregor DO Primary Care Provide r Leticia Handley MD Primary Care Provider + [phone] Encounter Details Date Type Department Care Team (Late st Contact Info) Description 08/15/2016 Orders Only [facility] ProviderNila MD [address] [place] [address] Social History Tobacco Use Types Packs/Day Years Used Date Smoking Tobacco: Never Alcohol Use Standard Drinks/Week Comments Yes 0 (1 standard drink = 0.6 oz pur e alcohol) Sex and Gender Information Value Date Recorded Sex Assigned at Not on file 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
== END 2024-09-05 12:37 | disposition home or self-care (01) ==
LOC: CHSTREATRM 12:38
PROVIDERS: PCP Internal Medicine; Visit Provider Internal Medicine
DX: D50.9 Iron deficiency anemia, unspecified (principal)
CPT/HCPCS: 96365; 96366; J1756; J7050

== ENCOUNTER 2024-09-10 17:15 | Outpatient (CLI) | payer MEDICARE, SELFPAY ==
--- OUTSIDE RECORDS SUMMARY | 2024-09-10 17:18 | XMS_ITS ---
Author Organization [facility] Address [address] [place], [place] [address] Care Team Providers Care Fiberglass Roller Name Role Phone ANASTASIIA ORNELAS Unavailable [phone] Jagdish Hadnleyonam Unavailable Unavailable CARLOS STEVE Unavailable [phone] REASON FOR VISIT *General care Encounters Encounter Location Date Provider Diagnosis [address] [id number] 04/10/2024 CARLOS STEVE Other hammer toe(s) (acquired), right foot M20.41 ; Tinea unguium B35.1 ; Other hammer toe(s) (acquired), left foot M20.42 ; Pain in right toe(s) M79.674 ; Pain in left toe(s) M79.675 ; Pain in right foot M79.671 ; Pain in left foot M79.672 ; 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[place] arteries of extremities, bilateral legs I70.203 and [...] (ICD-10 - M79.672) 04/10/2024 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[place] arteries of extremities, bilateral legs Patient educated [...] Reason: Provider Name:OPAL GUZMAN, 09/25/2024 03:10:00 PM, [address] [place] [address], [id number], Progress Notes * KATIE CRUZDOB:1940 (83 yo M)Acc No.[id number]:04/10/2024 Patient: Glenroy GOOD KATIE Provider: Fara STEVE :1940 A ge:83 Y S ex:Male Date:04/10/2024 Address: [facility] Subjective: * Chief Complaints: * 1 . [...] Patient denies c hest pain, history of NE, irregular heartbeat. M usculoskeletal: Patient complains of [...] M79.672 8 . U nspecified atherosclerosis of [place] arteries of extremities, bilateral legs - I70.203 [...] were emphasized. 3. U nspecified atherosclerosis of [place] arteries of extremities, bilateral legs Notes: Patient [...] LESIONS, 2 TO 4, Modifiers: Q8 , 94607 DEBRIDE NAIL, 6 OR MORE, Modifiers: 59 , Q8 * Follow Up: 3 Months * Billing Information: * Visit Code: * Procedure Codes: 45292 TRIM SKIN LESIONS, 2 TO 4. Modifiers: Q8 57280 DEBRIDE NAIL, 6 OR MORE. Modifiers: 59, Q8 * PRODUCTION WORKER Sign off status: Completed true * Provider: Fara STEVE Date: 06/11/2023 Generated for Joseph jang/Triny/Danielitting on: 0 09/10/2024 05:18 PM CDT History and Physical Notes * [...]
--- OUTSIDE RECORDS SUMMARY | 2024-09-10 17:18 | XMS_ITS | Clinical Summary ---
Author Organization [facility] [address] Address [address] [place] [address] Care Team Providers Care Outside Parts Sales Name Role Phone Leticia Handley MD Primary [...] 1 tablet (75 mcg total) by mouth speed runner before breakfast 30 tablet 1 06/17/19 23 [...] day 270 tablet 1 07/18/19 25 Active brimonidine-julio cesar oloL (COMBIGAN) 0.2-0.5 % [...] tablet 3 09/18/19 24 025 Discontinued(R eorder) glycopyrrolate (ROBINUL) 1 mg tabletIndicatio ns:Sialorrhea Take 1 tablet (1 mg total) by mouth 3 (three) times a day 90 tablet 11 08/13/19 25 025 Discontinued Hospital, Clinic, or Other Facility Administered Medication Ordered Dose Route Frequency Start Date End Date Status onabotulinumtoxin A (BOTOX) injection 100 UnitsIndications:S ialorrhea 100 Units IM Once for Clinic-Administe red Medication 12/16/2024 6 Active onabotulinumtoxin A (BOTOX) injection 100 UnitsIndications:S ialorrhea 100 Units IM Once for Clinic-Administe red Medication 09/30/2024 5 Discontinued onabotulinumtoxin A (BOTOX) injection 100 UnitsIndications:S ialorrhea 100 Units IM Once for Clinic-Administe red Medication 09/09/2024 5 Ended Active Problems Problem Noted Date Diagnosed Date Sialorrhea 09/09/2024 Chronic anticoagulation 05/08/2023 Autonomic orthostatic hypotension 01/26/2023 [...] we should send an updated script to [facility] in 2-3 weeks) -start glycopyrrolate 1mg TID for sialorrhea -if ineffective consider Botox injections Assessment & Plan (03/12/2024 1:31 PM LABORATORY MILLER): 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 [...] placement 11/29/2016 Coronary artery disease invo lving creek coronary artery of creek heart without angina pectoris 08/14/2016 Overview (09/29/2016): Coronary artery disease involving creek coronary artery of creek heart with other form of angina pectoris [...] Encounters Date Type Department Care Team Description 09/09/2024 11:15 AM CDT Procedure visit [facility] Movement Disorders [address] [place] [address] Medicine 6th [place] [address] [place] [address] Isiah Brown MD PhD Sialorrhea (Primary Dx); Parkinson's disease without dyskinesia or fluctuating manifestations (HCC) 09/09/2024 Orders Only [facility] Movement Disorders [address] [facility] Medicine 6th [place] [address] [place] [address] Isiah Brown MD PhD Sialorrhea 09/09/2024 Telephone [facility] Movement Disorders [address] [phone] Charlette Arias RN 09/02/2024 Telephone [facility] Movement Disorders [address] [phone] Zelda Negron, BARRERA 08/20/2024 Orders Only [facility] Movement Disorders [address] [facility] 6th [place] [address] [place] [address] Isiah Brown MD PhD Sialorrhea (Primary Dx) 08/13/2024 Telephone [facility] Movement Disorders [address] [place] [phone] Zelda Negron, BARRERA 08/12/2024 1:30 PM CDT Office Visit [facility] Movement Disorders [address] [place] [phone] Isiah Brown MD PhD Parkinson's disease without dyskinesia or fluctuating manifestations (HCC) (Primary Dx); Sialorrhea 06/27/2024 Telephone [facility] Cardiology [address] [facility] [address] [place] [phone] Freeman Chavira MD 06/16/2024 Telephone [facility] Cardiology [address] [place] [phone] Freeman Chavira MD samples from Last 3 [...] Hypertension Hypertension Adiposity Obesity Sleep apnea CPAP DE (myocardial infarction) (HCC) 2014 CAD (coronary artery [...] relatives? 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 Gender Identity Not on file Sexual Orientation Not on file Obstetrics History Last Filed Vital Signs Vital Sign Reading Time Taken Comments Blood Pressure 105/67 09/09/2024 12:00 PM CDT Pulse 67 09/09/2024 12:00 PM CDT Temperature 36.8 C (98.2 F) 08/12/2024 12:47 PM CDT Respiratory Rate 18 04/10/2024 2:18 PM LABORATORY MILLER Oxygen Saturation 97% 04/10/2024 2:18 PM LABORATORY MILLER Inhaled Oxygen Concentration - - Weight 81.2 kg (179 lb) 09/09/2024 11:03 AM CDT Height 167.6 cm (5' 6 ) 09/09/2024 11:03 AM CDT Body Mass Index 28.89 09/09/2024 11:03 AM CDT Plan of Treatment Health Maintenance [...] Additional history exists Pneumococcal vaccine 65+ Completed 015, 09/10/2012, 06/13/2004 Medical Devices Implanted Type Area Machine Quilt Stuffer Device Identifier Shelf Expiration Date Model / Serial / Lot Ziggy Medical Plate Bone Low Profile 6 Hole H Shape Ti 115.102.06 - [id number] Implanted:Qty: 1 on 06/05/2022 by Nicolás Arevalo MD at [facility] Plate N/A: Sternum [employer] 115.102. 06 / / Ziggy Medical Plate Bone Low Profile 4 Hole Box Ti 115.103.04 - [id number] Implanted:Qty: 1 on 06/05/2022 by Nicolás Arevalo MD at [facility] Plate N/A: Sternum [employer] 115.103. 04 / / Ziggy Medical Plate Bone Low Profile 6 Hole O Concave Ti 115.604.06 - [id number] Implanted:Qty: 1 on 06/05/2022 by Nicolás Arevalo MD at [facility] Plate N/A: Sternum [employer] 115.604. 06 / / [employer] Von-Tim ds Perimount Magna Ease 23mm Bioprosthesis [id number] - [id number] - [id number] Implanted:Qty: 1 on 06/05/2022 by Nicolás Arevalo MD at [facility] Prosthetic Valve N/A: Heart [employer] 07/18/2024 [id number] 3MM / [id number] / Ziggy Medical Screw Bone Slf Drl Full Thread Locking 3.5x14mm Ti 100.035.14 - [id number] Implanted:Qty: 10 on 06/05/2022 by Nicolás Arevalo MD at [facility] Screw N/A: Sternum [employer] 100.035. 14 / / Ziggy Medical Screw Bone Slf Drl Full Thread Locking 3.5x16mm Ti 100.035.16 - [id number] Implanted:Qty: 6 on 06/05/2022 by Nicolás Arevalo MD at [facility] Screw N/A: Sternum [employer] 100.035. 16 / / Procedures Procedure Name Priority Date/Time Associated Diagnosis Comments POCT LIPID PANEL Routine 08/02/2023 10:2 9 AM CDT Coronary artery disease involving creek coronary artery of creek heart without angina pectoris EGFR Routine 06/16/2022 10:03 AM LABORATORY MILLER HEMOGLOBIN A1C Routine 05/30/2022 12:59 PM LABORATORY MILLER Preop testing Type 2 diabetes mellitus with other specified complication, without long-term current use of insulin (HCC) from Last 3 Months or Most Recently Relevant to Health Maintenance Results * POCT lipid panel (08/02/2023 10:29 AM CDT) Pathologist [facility] Cholesterol, POC <100 mg/dL Comment:GLU = 133 HDL, POC <15 mg/dL Triglycerides, POC 70 mg/dL LDL Cholesterol POC 71 mg/dL Chol/HDL Ratio, POC N/A Non-HDL Cholesterol, POC N/A mg/dL Cholesterol Total, POC <100 mg/dL Capillary blood 08/02/2023 1 0:29 AM CDT us Rosales Watt MD POINT OF CARE TEST ORDER CHANEL Final Result * eGFR (06/16/2022 10:03 AM LABORATORY MILLER) [facility] eGFR 67 mL/min/1. 73 m2 RYAN Comment: [...] reviewed 2021. Blood 06/16/2022 10:0 3 AM LABORATORY MILLER 06/16/2022 10:03 AM LABORATORY MILLER Nicolás Arevalo MD LAB BLOOD ORDERABLES Final Res ult Performing Organization Address City/[facility] Co de Phone Number RYAN [phone] [place] [address] * Hemoglobin A1c (05/30/2022 12:59 PM LABORATORY MILLER) [facility] Hgb A1C 5.5 4.0 - 5.6 % RYAN LUX Estimated Average Glucose 111 mg/dL RYAN LUX Comment: The ADA recommends reporting an estimated Average Glucose (eAG) with all Hemoglobin A1c results using the equation derived from a study of 507 normal and diabetic adults. Minority populations were underrepresented and children were not included. (Diabetes Care 31:6914-8436, 2008). The eAG is not equivalent to a fasting glucose. Blood 05/30/2022 12:5 9 PM LABORATORY MILLER 05/30/2022 1:03 PM LABORATORY MILLER Nicolás Arevalo MD LAB BLOOD ORDERABLES Final Res ult Performing Organization Address City/[facility]/ZIP Co de Phone Number RYAN LUX [phone] [place] [address] from Last 3 Months or Most Recently Relevant to Health Maintenance Insurance [facility] MEDICARE SUPPLEMENT INSURANCE MEDICARE [facility] MEDICARE SUPPLEMENT MEDICARE [facility] MEDICARE SUPPLEMENT Advance Directives For more information, please contact: [phone] * Full Code (Latest Code Status on File) Date Activated Date Inactivated Comments 06/05/2022 2:49 PM 06/16/2022 5:28 PM Care Teams Outside Parts Sales Relationship Specialty Start Date End Date Leticia Handley MD [address] [place] [address] PCP - General Internal Medicine 05/08/23
--- OUTSIDE RECORDS SUMMARY | 2024-09-10 17:18 | XMS_ITS | Referral Summary ---
Author Organization [facility] [address] Address [address] [place] [address] Care Team Providers Care Reinstatement Clerk Name Role Phone Leticia Handley MD Primary Care Provider [phone] Encounters Date Type Department Care Team Description 09/09/2024 Orders Only [facility] Movement Disorders [address] [place] [address] Advanced Medicine 6th [place] [phone] Isiah Brown MD PhD Sialorrhea 09/09/2024 Telephone [facility] Movement Disorders [address] [place] [address] Advanced Medicine [address] [place] [phone] Charlette Arias RN 09/09/2024 11:15 AM CDT Procedure visit [facility] Movement Disorders [address] [place] [address] Medicine 6th [place] [phone] Isiah Brown MD PhD Sialorrhea (Primary Dx); Parkinson's disease without dyskinesia or fluctuating manifestations (HCC) 09/02/2024 Telephone [facility] Movement Disorders [address] [place] [address] Medicine 7th [place] [phone] Zelda Negron RN 08/20/2024 Orders Only [facility] Movement Disorders [address] [place] [address] Advanced Medicine 6th [place] [phone] Isiah Brown MD PhD Sialorrhea (Primary Dx) 08/13/2024 Telephone [facility] Movement Disorders [address] [facility] 7th [place] [address] Zelda Negron RN 08/12/2024 1:30 PM CDT Office Visit [facility] Movement Disorders [address] [facility] 7th [place] [phone] Isiah Brown MD PhD Parkinson's disease without dyskinesia or fluctuating manifestations (HCC) (Primary Dx); Sialorrhea 06/27/2024 Telephone [facility] Cardiology [address] [place] [phone] Freeman Chavira MD 06/16/2024 Telephone [facility] Cardiology [address] [place] [address] Freeman Chavira MD samples from [...] 1 tablet (75 mcg total) by mouth striper before breakfast 30 tablet 1 06/17/19 23 [...] we should send an updated script to [facility] in 2-3 weeks) -start glycopyrrolate 1mg TID for sialorrhea -if ineffective consider Botox injections Assessment & Plan (03/12/2024 1:31 PM DOSIER OPERATOR): He has stage 3 parkinsonism with [...] placement 11/29/2016 Coronary artery disease invo lving [place] coronary artery of [place] heart without angina pectoris 08/14/2016 Overview (09/29/2016): Coronary artery disease involving [place] coronary artery of [place] heart with other form of angina pectoris [...] relatives? Three times a week 06/06/2022 Attends Judaism Services Not on file 06/06 Active Member [...] on file Legal Sex Male 12:29 AM DOSIER OPERATOR Gender Identity Not on file Sexual Orientation Not on file Last Filed Vital Signs Vital Sign Reading Time Taken Comments Blood Pressure 105/67 09/09/2024 12:00 PM CDT Pulse 67 09/09/2024 12:00 PM CDT Temperature 36.8 C (98.2 F) 08/12/2024 12:47 PM CDT Respiratory Rate 18 04/10/2024 2:18 PM DOSIER OPERATOR Oxygen Saturation 97% 04/10/2024 2:18 PM DOSIER OPERATOR Inhaled Oxygen Concentration - - Weight 81.2 kg (179 lb) 09/09/2024 11:03 AM CDT Height 167.6 cm (5' 6 ) 09/09/2024 11:03 AM CDT Body Mass Index 28.89 09/09/2024 11:03 AM CDT Plan of Treatment Not on file Medical Devices Implanted Type Area Industry Analyst Device Identifier Shelf Expiration Date Model / Serial / Lot Ziggy Medical Plate Bone Low Profile 6 Hole H Shape Ti 115.102.06 - [id number] Implanted:Qty: 1 on 06/05/2022 by Nicolás Arevalo MD at [facility] Plate N/A: Sternum [employer] 115.102. 06 / / Ziggy Medical Plate Bone Low Profile 4 Hole Box Ti 115.103.04 - [id number] Implanted:Qty: 1 on 06/05/2022 by Nicolás Arevalo MD at [facility] Plate N/A: Sternum [employer] 115.103. 04 / / Ziggy Medical Plate Bone Low Profile 6 Hole O Concave Ti 115.604.06 - [id number] Implanted:Qty: 1 on 06/05/2022 by Nicolás Arevalo MD at [facility] Plate N/A: Sternum [employer] 115.604. 06 / / [employer] Von-Tim ds Perimount Magna Ease 23mm Bioprosthesis [id number] - [id number] - [id number] Implanted:Qty: 1 on 06/05/2022 by Nicolás Arevalo MD at [facility] Prosthetic Valve N/A: Heart [employer] 07/18/2024 [id number] 3MM / [id number] / Ziggy Medical Screw Bone Slf Drl Full Thread Locking 3.5x14mm Ti 100.035.14 - [id number] Implanted:Qty: 10 on 06/05/2022 by Nicolás Arevalo MD at [facility] Screw N/A: Sternum [employer] 100.035. 14 / / Ziggy Medical Screw Bone Slf Drl Full Thread Locking 3.5x16mm Ti 100.035.16 - [id number] Implanted:Qty: 6 on 06/05/2022 by Nicolás Arevalo MD at [facility] Screw N/A: Sternum [employer] 100.035. 16 / / Procedures Procedure Name Priority Date/Time Associated Diagnosis Comments POCT LIPID PANEL Routine 08/02/2023 10:2 9 AM CDT Coronary artery disease involving [place] coronary artery of [place] heart without angina pectoris EGFR Routine 06/16/2022 10:03 AM DOSIER OPERATOR HEMOGLOBIN A1C Routine 05/30/2022 12:59 PM DOSIER OPERATOR Preop testing Type 2 diabetes mellitus [...] Final Result * eGFR (06/16/2022 10:03 AM DOSIER OPERATOR) Pathologist [facility] eGFR 67 mL/min/1. 73 m2 RYAN [...] reviewed 2021. Blood 06/16/2022 10:0 3 AM DOSIER OPERATOR 06/16/2022 10:03 AM DOSIER OPERATOR Nicolás Arevalo MD LAB BLOOD ORDERABLES Final Res ult Performing Organization Address City/[facility]/ZIP Co de Phone Number RYAN LUX [address] [address] [place] [place] [address] * Hemoglobin A1c (05/30/2022 12:59 PM DOSIER OPERATOR) Hgb A1C 5.5 4.0 - 5.6 % RYAN LUX Estimated Average Glucose 111 mg/dL RYAN LUX Comment: The ADA recommends reporting an estimated Average Glucose (eAG) with all Hemoglobin A1c results using the equation derived from a study of 507 normal and diabetic adults. Minority populations were underrepresented and children were not included. (Diabetes Care 31:2824-0579, 2008). The eAG is not equivalent to a fasting glucose. Blood 05/30/2022 12:5 9 PM DOSIER OPERATOR 05/30/2022 1:03 PM DOSIER OPERATOR Nicolás Arevalo MD LAB BLOOD ORDERABLES Final Res ult RYAN LUX [address] [address] Department [place] [address] from Last 3 Months or Most Recently Relevant to Health Maintenance Insurance MEDICARE [facility] MEDICARE SUPPLEMENT INSURANCE MEDICARE [facility] MEDICARE SUPPLEMENT MEDICARE [facility] Address: [place] [id number] [place] [address] [facility] MEDICARE SUPPLEMENT Advance Directives For more information, please contact: [phone] * Full Code (Latest Code Status on File) Date Activated Date Inactivated Comments 06/05/2022 2:49 PM 06/16/2022 5:28 PM Care Teams Reinstatement Clerk Relationship Specialty Start Date End Date Leticia Handley MD [address] [place], [place] [id number] PCP - General Internal Medicine 1/2/24
--- OUTSIDE RECORDS SUMMARY | 2024-09-10 17:18 | XMS_ITS ---
Author Organization [facility] Address [address] [place], [place] [address] Care Team Providers Care Weighbridge Operator Name Role Phone ANASTASIIA ORNELAS Unavailable [phone] Estela Handley Unavailable Unavailable REASON FOR VISIT Patient presents for at-risk foot care . The patient has painful toenails and calluses that are causing difficulty with ambulation and shoegear. The onset is gradual Encounters Encounter Location Date Provider Diagnosis [address] [id number] 07/24/2024 ANASTASIIA ORNELAS Tinea unguium B35.1 ; Pain in right foot M79.671 ; Pain in left foot M79.672 ; Atherosclerosis of [place] arteries of extremities with intermittent claudication, bilateral [...] foot (ICD-10 - M79.672) 07/24/2024 Atherosclerosis of [place] arteries of extremities with intermittent claudication, bilateral [...] develop. Provider Name:OPAL GUZMAN, 09/25/2024 03:10:00 PM, [address] [place] [address], [id number], Progress Notes * KATIE CRUZDOB:1940 (83 yo M)Acc No.[id number]:07/24/2024 Patient: KATIE HOGAN Provider: Whitney Ornelas DPM :1940 A ge:83 Y S ex:Male Date:07/24/2024 Address:[address] [place] [id number] Subjective: * Chief Complaints: * 1 . [...] seen by Dr. Handley was 06/2024., Initials [facility]. * Medical History: Objective: * Vitals: * [...] - M79.672 4 . 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 Modifiers: Q8 11922 DEBRIDE NAIL, 6 OR MORE. Modifiers: 59, Q8 * Electronic signature of ANASTASIIA ORNELAS DPM on 09/10/2024 at 05:18 PM CDT Sign off status: Pending * Provider: Whitney Ornelas DPM Date: 0 07/24/2024 Generated for Joseph jang/Triny/Enzo on: 0 09/10/2024 05:18 PM CDT History [...]
--- OUTSIDE RECORDS SUMMARY | 2024-09-10 17:18 | XMS_ITS | Clinical Summary ---
Author Organization [facility] Address [address] [place] [address] Care Team Providers Care Director Shopper Marketing Name Role Phone Leticia Handley MD Primary Care Provider [phone] Allergies No known active allergies Medications clopidogrel [...] opa (SINEMET) 25-250 MG tabletIndicatio ns:Parkinson's disease ([facility]) TAKE 1 TABLET BY MOUTH 4 TIMES DAILY 360 tablet 3 03/24/2022 Active pramipexole (MIRAPEX) 1 MG tabletIndicatio ns:Parkinson's disease ([facility]) Take 3 tablets (3 mg total) by [...] artery disease of n ative artery of [place] heart with stable angina pectoris 08/14/2016 Overview (05/27/2019): Overview: Coronary artery disease involving [place] coronary artery of [place] heart with other form of angina pectoris Dyslipidemia associated with type 2 diabetes mellitus ([facility]) 11/15/2015 Overview (05/27/2019): Overview: DM type 2 with diabetic dyslipidemia Hypertensive heart disease w ith congestive heart failure ([facility]) 08/02/2015 Overview (05/27/2019): Overview: Hypertensive heart disease with diastolic heart failure YANET on CPAP 08/02/2015 Overview (05/27/2019): Overview: YANET on CPAP Benign hypertension 04/26/2015 Overview (05/27/2019): Overview: HTN (hypertension), benign Dyslipidemia 04/26/2015 Overview (05/27/2019): Overview: Mixed dyslipidemia Cardiomyopathy ([facility]) 04/26/2015 Overview (05/27/2019): Overview: Cardiomyopathy Myocardial infarction ([facility]) 04/26/20 15 Overview (05/27/2019): Overview: ST elevation [...] CDT Respiratory Rate 18 07/13/2021 2:45 PM FITNESS AND WELLNESS COORDINATOR Oxygen Saturation 96% 12/16/2021 8:52 AM CDT [...] age to complete this topic Insurance MEDICARE [employer] MEDICARE [employer] Care Teams Director Shopper Marketing Relationship Specialty Start Date End Date Leticia Handley MD [address] [place] [address] PCP - General INTERNAL MEDICINE 08/09/18
--- OUTSIDE RECORDS SUMMARY | 2024-09-10 17:19 | XMS_ITS | Encounter Summary ---
Author Organization [facility] Address [address] [place] [address] Care Team Providers Care Courier Name Role Phone Leticia Handley MD Primary Care Provider [phone] Karrie Mcgregor DO Primary Care Provide r Leticia Handley MD Primary Care Provider [phone] Encounter Details Date Type Department Care Team (Late st Contact Info) Description 08/15/2016 Orders Only [facility] ProviderNila MD [address] [place] [address] Social History Tobacco Use Types Packs/Day Years Used Date Smoking Tobacco: Never Alcohol Use Standard Drinks/Week Comments Yes 0 (1 standard drink = 0.6 oz pur e alcohol) Sex and Gender Information Value Date Recorded Sex Assigned at Not on file 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
--- OUTSIDE RECORDS SUMMARY | 2024-09-10 17:19 | XMS_ITS | Encounter Summary ---
Author Organization [facility] Address [address] [place] [address] Care Team Providers Care Captain Waiter Name Role Phone Leticia Handley MD Primary Care Provider Nilesh Mojica DO Unavailable Enoc Sheridan PA-C Unavailable [phone] Encounter Details Date Type Department Care Team (Late st Contact Info) Description 12/06/2016 [facility] Outpatient Visit [facility] Orthopedics - Radiology [address] [place] [address] Nilesh Mojica [facility] Medical [address] [address] Social History Tobacco Use Types [...] st Contact Info) Description 03/09/2025 10:40 AM TYPESETTING MACHINE OPERATOR/TENDER Office Visit [facility] Health Orthopedics [address], [address] [address] Nilesh Mojica [address] [address] documented as of this encounter Visit Diagnoses Not on filedocumented in this encounter Care Teams Captain Waiter Relationship Specialty Start Date End Date Leticia Handley MD PCP - General Internal Medicine 12/06/16 Nilesh Mojica DO Orthopedic Surgery 12/06/16 Enoc Sheridan PA-C [address] [place] [address] Physician Contract Paralegal Physician Contract Paralegal 03/13/17 documented as of this encounter
--- OUTSIDE RECORDS SUMMARY | 2024-09-10 17:19 | XMS_ITS | Patient Health Record ---
Author Organization [facility] Address [address] [place], [place] [id number] Care Team Providers Care Weatherseal Technician Name Role Phone EVYMoisés ANASTASIIA Unavailable [phone] Estela Handley Unavailable Unavailable CARLOS STEVE Unavailable [phone] Allergies No Known Allergies Reason For Referral No Information Immunizations Vaccine Route Administration Date Status Comme nts Influenza, high dose seasonal Unknown 02/12/2023 Admini stered Vital Signs Height-cm 167.64 cm 11/29/2023 Weight-kg 90.72 kg 11/29/2023 Height 66.00 in 11/29/2023 Weight 200 lbs 11/29/2023 BMI 32.28 kg/m2 11/29/2023 Encounters Encounter Location Date Provider Diagnosis [address] [id number] 07/24/2024 ANASTASIIA ORNELAS Tinea unguium B35.1 ; Pain in right foot M79.671 ; Pain in left foot M79.672 ; Atherosclerosis of [place] arteries of extremities with intermittent claudication, bilateral legs I70.213 and Acquired keratosis [keratoderma] palmaris et plantaris L85.[address] [id number] 09/27/2023 CARLOS STEVE Other hammer toe(s) (acquired), right foot M20.41 ; Tinea unguium B35.1 ; Other hammer toe(s) (acquired), left foot M20.42 ; Pain in right toe(s) M79.674 ; Pain in left toe(s) M79.675 ; Pain in right foot M79.671 ; Pain in left foot M79.672 ; 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[place] arteries of extremities, bilateral legs I70.203 and Acquired keratosis [keratoderma] palmaris et plantaris L85.[address] [id number] 11/29/2023 CARLOS STEVE Other hammer toe(s) (acquired), right foot M20.41 ; Tinea unguium B35.1 ; Other hammer toe(s) (acquired), left foot M20.42 ; Pain in right toe(s) M79.674 ; Pain in left toe(s) M79.675 ; Pain in right foot M79.671 ; Pain in left foot M79.672 ; 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[place] arteries of extremities, bilateral legs I70.203 and Acquired keratosis [keratoderma] palmaris et plantaris L85.[address] [id number] 01/31/2024 CARLOS STEVE Other hammer toe(s) (acquired), right foot M20.41 ; Tinea unguium B35.1 ; Other hammer toe(s) (acquired), left foot M20.42 ; Pain in right toe(s) M79.674 ; Pain in left toe(s) M79.675 ; Pain in right foot M79.671 ; Pain in left foot M79.672 ; 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[place] arteries of extremities, bilateral legs I70.203 and Acquired keratosis [keratoderma] palmaris et plantaris L85.[address] [id number] 04/10/2024 CARLOS STEVE Other hammer toe(s) (acquired), right foot M20.41 ; Tinea unguium B35.1 ; Other hammer toe(s) (acquired), left foot M20.42 ; Pain in right toe(s) M79.674 ; Pain in left toe(s) M79.675 ; Pain in right foot M79.671 ; Pain in left foot M79.672 ; 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[place] arteries of extremities, bilateral legs I70.203 and Acquired keratosis [keratoderma] palmaris et plantaris L85.[address] [id number] 05/22/2024 ANASTASIIA ORNELAS Tinea unguium B35.1 ; Pain in right foot M79.671 ; Pain in left foot M79.672 ; Atherosclerosis of [place] arteries of extremities with intermittent claudication, bilateral [...] toe(s) (ICD-10 - M79.674) 07/24/2024 Atherosclerosis of [place] arteries of extremities with intermittent claudication, bilateral legs (ICD-10 - I70.213) 05/22/2024 Atherosclerosis of [place] arteries of extremities with intermittent claudication, bilateral [...] (ICD-10 - M79.672) 09/27/2023 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[place] arteries of extremities, bilateral legs (ICD-10 - I70.203) Patient educated on risks and aggravating factors of PVD, including conservative treatment options such as a diet and exercise regimen to aid in slowing progression of vascular disease 11/29/2023 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[place] arteries of extremities, bilateral legs (ICD-10 - I70.203) Patient educated on risks and aggravating factors of PVD, including conservative treatment options such as a diet and exercise regimen to aid in slowing progression of vascular disease 01/31/2024 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[place] arteries of extremities, bilateral legs (ICD-10 - I70.203) Patient educated on risks and aggravating factors of PVD, including conservative treatment options such as a diet and exercise regimen to aid in slowing progression of vascular disease 04/10/2024 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[place] arteries of extremities, bilateral legs (ICD-10 - [...] Details Provider Name:OPAL GUZMAN, 09/25/2024 03:10:00 PM, [address] [place] [address], [id number], Insurance Providers Payer Name Payer Address Payer Phone Subscriber Number Group Number Insured Name Patient Relationship to Insured Coverage Start Date Coverage End Date Medicare Part B [place] [address] [place] [address] [id number] KATIE CRUZ Self - patient is the insured [facility] ([facility]) ATTN CLAIMS [address] [place] [address] [id number] KATIE CRZU Self - patient is the insured 4
--- OUTSIDE RECORDS SUMMARY | 2024-09-10 17:19 | XMS_ITS | Encounter Summary ---
Author Organization [facility] Address [address] [place] [address] Phone Care Team Providers Care Outside Upholsterer Name Role Phone Leticia Handley MD Primary Care Provider [phone] Encounter Details Date Type Department Care Team (Late st Contact Info) Description 09/09/2024 Telephone [facility] Movement Disorders [address] [place] [address] Charlette Arias, RN Social History Tobacco Use Types Packs/Day Years [...] relatives? Three times a week 06/06/2022 Attends [employer] Not on file 06/06 Active Member [...] place to sleep or slept in a [place] health care facility (including now)? 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 If he does not feel that the rasagiline has been helpful, we can considertapering it and stopping it, if he prefers? Yes, pushing fluids is advised to keep his BP stable, however, this is a struggle with many of our patients for the bladder reasons. Please continue to do the best he can with this. Any other recent changes in meds or symptoms in the last week besides the increased difficulty withwalking? Any recent signs of illness or infection, which can cause overall worsening? Is he still working with PT or continuing the exercises on his own for gait and strength? I will update Dr. Brown on this all and let you know his comments. Take care, rEnestina Arias, RN, BSN Movement Disorders Department of Neurology ===View-only below this line=== ----- Message ----- From:Alli Eagle Sent:09/09/2024 9:34 AM CDT To:Isiah Brown MD PhD Subject:Diane med changes since August 12 My dad, Alli, has been taking 2 Rasagiline for a month now and has been taking his meds on an emptystomach. He has not noticed any improvement. I reminded him to drink more water and he said he will try. He currently just drinks enough to swallow all his pills because he has no bladder control. My dad also mentioned that he feels like it???s been more difficult to walk in the last week. Any recommendations? Thanks so much, Susannah Lock (daughter) documented in this encounter Plan of Treatment Not on file documented as of this encounter Visit Diagnoses Not on filedocumented in this encounter Care Teams Outside Upholsterer Relationship Specialty Start Date End Date Leticia Handley MD [address] [place] [address] PCP - General Internal Medicine 05/08/23 documented as of this encounter
--- OUTSIDE RECORDS SUMMARY | 2024-09-10 17:19 | XMS_ITS | Encounter Summary ---
Author Organization [facility] Address [address] [place] [address] Phone Care Team Providers Care Family Consumer Science Fcs Teacher Name Role Phone Leticia Handley MD Primary Care Provider Reason for Referral * Medication Authorization (Routine) - Pending Review Specialty Diagnoses / Procedures Referred By Rody rai Referred To Contact Diagnoses Sialorrhea Isiah Brown MD PhD 1 [place] [address] Phone: tel: fax: Referral ID Status Reason Start Date Expiration Date V isits Requested Visits Authorized [id number] Pending Review 12/16/2024 01/15/2026 1 1 Reason for Visit * Reason Comments Sialorrhea Parkinson's Disease * Medication Authorization (Routine) - Pending Review Specialty Diagnoses / Procedures Referred By Rody rai Referred To Contact Diagnoses Sialorrhea Isiah Brown MD PhD [address] [place] [address] Phone: tel: fax: Referral ID Status Reason Start Date Expiration Date V isits Requested Visits Authorized [id number] Pending Review 09/04/2024 10/04/2024 1 1 Encounter Details Date Type Department Care Team (Latest Contact Info) Description 09/09/2024 11:15 AM CDT Procedure visit [facility] Movement Disorders [address] 6th [place] [address] [place] [address] Isiah Brown MD PhD [address] [facility] [place] [address] Sialorrhea (Primary Dx); Parkinson's disease without dyskinesia or fluctuating manifestations (HCC) Social History Tobacco Use Types Packs/Day Years [...] relatives? Three times a week 06/06/2022 Attends Taoist Services Not on file 06/06 Active Member [...] place to sleep or slept in a fci (including now)? 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 Gender Identity Not on file Sexual Orientation Not on file documented as of this encounter Last Filed Vital Signs Vital Sign Reading Time Taken Comments Blood Pressure 105/67 09/09/2024 12:00 PM CDT Pulse 67 09/09/2024 12:00 PM CDT Temperature - - Respiratory Rate - - Oxygen Saturation - - Inhaled Oxygen Concentration - - Weight 81.2 kg (179 lb) 09/09/2024 11:03 AM CDT Height 167.6 cm (5' 6 ) 09/09/2024 11:03 AM CDT Body Mass Index 28.89 09/09/2024 11:03 AM CDT documented in this encounter Patient Instructions * Patient Instructions* Isiah Brown MD PhD - 09/09/2024 11:15 AM CDT Decrease rasagiline to 1 tab (0.5mg) daily for 2 weeks, then stop it completely. Send us an update in 3 weeks, and if you haven't noticed any changes we can try increasing the low-dose Carbidopa/Levodopa (25-100mg) to 1.5 tabs per dose. documented in this encounter Progress Notes * Isiah Borwn MD PhD - 09/09/2024 11:15 AM CDT [facility] Office Visit Patient: Alli Eagle Referred by: Leticia Handley MD : 1940 Visit Date: 09/09/2024 Clinician: Isiah Brown MD PhD Chief Complaint Alli Eagle is a 83 y.o. male who presents for Sialorrhea and Parkinson's Disease Hand Dominance: Right Referred by Leticia Handley MD. His PMD is Leticia Handley MD. HPI: He has bothersome drooling related to Parkinson disease, with saliva that often drips down onto hisshirt. It is worst in the evenings. We prescribed Glycopyrrolate but was not an option due to interaction with his other medications that would cause increased bleeding risk, per his pharmacy. Drooling Severity Scale Currently: 5 - profuse, drooling off the body and onto objects Drooling Frequency Scale Currently: 3 - frequently drooling Total Score Total Score (Current, out of 9): 8 For his PD, we started Rasagiline last visit and increased to 1mg daily, but he has not noticed anybenefits. His walking / balance have continued to worsen. BP tends to be on the low side (~100 systolic or less), and he endorses frequent fatigue / generalized weakness but not lightheadedness. Current Outpatient Medications Medication Sig Dispense Refill atorvastatin (LIPITOR) 20 mg tablet TAKE 1 TABLET BY MOUTH EVERY DAY 90 tablet 1 bimatoprost (Lumigan) 0.01 % ophthalmic drops Administer 1 drop into both eyes nightly brimonidine-timoloL (COMBIGAN) 0.2-0.5 % ophthalmic solution Administer 1 drop into both eyes 2 (two) times a day carbidopa-levodopa (SINEMET) 25-100 mg per tablet Take 1 tablet by mouth 3 (three) times a day 270 tablet 3 carbidopa-levodopa (SINEMET) 25-250 mg per tablet Take 2 tablets by mouth 3 (three) times a day 540tablet 3 ferrous sulfate 325 mg (65 mg of elemental iron) tablet Take 1 tablet (325 mg total) by mouth 3 (three) times a day furosemide (LASIX) 40 mg tablet TAKE 1 TABLET BY MOUTH EVERY DAY 90 tablet 2 levothyroxine (SYNTHROID) 75 mcg tablet Take 1 tablet (75 mcg total) by mouth public health inspector before breakfast 30 tablet 1 mecobalamin, vitamin B12, (B12 Active) 1,000 mcg tablet,chewable Take 1,000 mcg by mouth daily midodrine (PROAMATINE) 5 mg tablet Take 1 tablet (5 mg total) by mouth 3 (three) times a day [address] (PROTONIX) 40 mg EC tablet TAKE 1 TABLET BY MOUTH EVERY DAY 90 tablet 3 polyethylene glycol (MIRALAX) 17 gram packet Take 1 packet (17 g total) by mouth daily 20 packet 1 potassium chloride ER 10 mEq CR tablet TAKE 1 TABLET/CAPSULE (10 MEQ TOTAL) BY MOUTH DAILY 90 tablet 2 pramipexole (MIRAPEX) 1 mg tablet Take 3 tablets (3 mg total) by mouth 3 (three) times a day 810 tablet 3 rasagiline (AZILECT) 0.5 mg tablet 1 tab qam 90 tablet 3 rivaroxaban (XARELTO) 20 mg tablet Take 1 tablet (20 mg total) by mouth daily with dinner 30 tablet2 terazosin (HYTRIN) 10 mg capsule vit A/C/E ac/ZnOx/cupric oxide (EYE VITAMIN AND MINERALS ORAL) Take by mouth vitamin b complex tablet Take 1 tablet by mouth daily aspirin 81 mg enteric coated tablet Take 1 tablet (81 mg total) by mouth daily 30 tablet 1 No current facility-administered medications for this visit. No Known Allergies Past Medical History: Diagnosis Date Adiposity Obesity Arthritis Benign prostatic hyperplasia CAD (coronary artery disease) Cardiomyopathy (HCC) Cardiovascular disease Coronary Artery Disease CHF (congestive heart failure) (HCC) Chronic fatigue syndrome Glaucoma Heart disease Hypertension Hypertension [place] (myocardial infarction) ([facility]) 2014 Nonrheumatic aortic (valve) stenosis Parkinson's disease (HCC) Skin cancer Back Sleep apnea CPAP Thyroid disease Type 2 diabetes mellitus (HCC) H/O Past Surgical History: Procedure Laterality Date CARDIAC VALVE REPLACEMENT 06/05/2022 CATARACT EXTRACTION, BILATERAL CORONARY ANGIOPLASTY WITH STENT PLACEMENT CORONARY ARTERY BYPASS GRAFT 06/05/2022 JOINT REPLACEMENT 10/27/2010 and 03/2017 LUMBAR SPINE SURGERY TOTAL ANKLE ARTHROPLASTY Left 2017 TOTAL HIP ARTHROPLASTY Left Family History Problem Relation Age of Onset Unexplained Mother Unexplained Father Stroke Father 78 Parkinsonism Mother's Brother Tremor Neg Hx ALS Neg Hx Seizures Neg Hx Ethnicity: Non- Social History Tobacco Use Smoking status: Never Smokeless tobacco: Never Substance and Sexual Activity Drug use: No Comment: up to 3-4 beers/marigaritas/month; Sexual activity: Defer Alcohol Use: Not At Risk (06/05/2022) AUDIT-C Frequency of Alcohol Consumption: 2-4 times a month Average Number of Drinks: 1 or 2 Frequency of Binge Drinking: Never Review of Systems Vitals BP 105/67 (BP Location: Left arm, Patient Position: Sitting) Pulse 67 Ht 167.6 cm (5' 6 ) Wt 81.2 kg (179 lb) BMI 28.89 kg/m?? Physical Exam Cranial Nerves Shape - Right: Round Shape - Left: Round Extraocular Movements: Full (choppy) Convergence: Abnormal Nystagmus: None Eye Blinking: Abnormal Decreased Blinking: Both Cranial Nerves Continued Facial Strength - Both: Normal Facial Involuntary Movements: Normal Facial Expression: 3 - moderate hypomimia Tongue: Normal 09/18/2023 2:00 PM Neuropsychological Evaluation Testing Tobacco Sample Puller Ade Davis Neuropsychological Evaluation START Time 14:10 Neuropsychological Evaluation STOP Time 14:41 TOTAL Neuropsychological Evaluation Time (minutes) 31 minutes MOCA Total Score (out of 30) 13 Mini-Mental Total Score ((out of 30) 21 Mini-Mental Score Evaluation 24+ Normal GDS Total Score (Short Version max 15) 5 [place] Total Score (out of 24) 13 PDQ-39 Total Score (out of 156) 72 Total [facility] REM Score (out of 13) 4 HAD Anxiety Score 6 HAD Depression Score 8 Assessment/Plan Diagnoses and all orders for this visit: Sialorrhea (K11.7) (Primary) Parkinson's disease without dyskinesia or fluctuating manifestations (HCC) (G20.A1) He has sialorrhea due to Parkinson disease that has has not responded adequately to conservative measures. His symptoms are bothersome and interfere with daily activities, and he is an appropriate candidate for botulinum toxin injections. We discussed the risks and potential side effects of the injections including but not limited to infection, bruising, and dysphagia and dry mouth. Alternatives to chemodenervation were discussed. We also talked about the use of lower doses initially to minimize the occurrence of side effects, which can also result in suboptimal benefit after the initial sessions. Finally, it was discussed that benefits and side effects are temporary and he will need to retu rn for additional injections in about three months. He agreed to proceed with the injections and provided signed consent. Plan: Botox 80 U (amount wasted: 20 U) injected into the following areas using a 1 ml dilution: 40U Parotid Gland (left) 40U Parotid Gland (right) -for PD, reduce Rasagiline to 0.5mg daily for 2 weeks, then stop -once off Rasagiline, we can consider increasing CD/LD 25/100mg to 1.5 tabs TID (continue same doseof 50/250 tabs, and same Pramipexole) Return in about 3 months (around 12/08/2024) for Botox, and next scheduled regular follow-ups. I personally performed and documented the service above. Isiah Brown MD (BJ)/PhD documented in this encounter Miscellaneous Notes * Addendum Note - Brenda Alarcon CMA - 09/09/2024 11:15 AM CDTAddended by: BRENDA ALARCON on: 09/09/2024 02:43 PM Modules accepted: Orders documented in this encounter Plan of Treatment Not on file documented as of this encounter Visit Diagnoses Diagnosis Sialorrhea- Primary Disturbance of salivary secretion Parkinson's disease without dyskinesia or fluctuating manifestations (HCC) documented in this encounter Administered Medications Inactive Administered Medications - up to 3 most recent administrations Medication Order MAR Action Action Date Dose Rate Site onabotulinumtoxin A (BOTOX) injection 100 Units 100 Units, intramuscular, Once for Clinic-Administered Medication, On Sun09/09/24 at 1230, For 1 dose, Schedule in 3 months RefrigerateIndicatio ns:Sialorrhea Given by Other 09/09/2024 11:52 AM CDT 100 Units Other (Comment) documented in this encounter Discontinued Medications Medication Sig Discontinue Reason Start Date End Da te glycopyrrolate (ROBINUL) 1 mg tabletIndications:Sialor ashanti Take 1 tablet (1 mg total) by mouth 3 (three) times a day 08/12/2024 09/09/2024 documented as of this encounter Orders Medications Ordered That Rolf ht Not Have Been Administered Count Last Ordered Date First Ordered Date onabotulinumtoxin A (BOTOX) injection 100 Units 1 09/09/2024 documented in this encounter Care Teams Family Consumer Science Fcs Teacher Relationship Specialty Start Date End Date Leticia Handley MD [address], [place] [id number] PCP - General Internal Medicine 05/08/23 documented as of this encounter
--- OUTSIDE RECORDS SUMMARY | 2024-09-10 17:19 | XMS_ITS | Clinical Summary ---
Author Organization [facility] Address [address] [place] [address] Care Team Providers Care Artist Suspect Name Role Phone Leticia Handley MD Primary Care Provider [phone] Nilesh Mojica DO Unavailable [phone] PA-C Unavailable [phone] Source Comments [facility],non-owned Affiliates and Associated Physician Practices is amultiple site organization consisting of ambulatory clinics and hospital sitesin [place], [place], [place] and [place]. This disclosure is being madepursuant to the Care Everywhere program and may not contain all information available regarding this patient. Last updated 18.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 [address], [address] [address] Nilesh Mojica DO [address] [address] Health Maintenance Due Date Last [...] this topic Medical Devices Implanted Type Area Cuff Maker Device Identifier Shelf Expiration Date Model / Serial / Lot Stem Tlr Inbone Ii 1 Lg 10mm Ankl Implanted:Qty : 1 on 03/08/2017 by Nilesh Mojica DO at [facility] Left: Ankle Posibl. 12/07/2023 [id number] / / [id number] 4 Long Tibial Tray Implanted:Qty : 1 on 03/08/2017 by Nilesh Mojica DO at [facility] Left: Ankle Posibl. 01/09/2025 [id number] / / [id number] Cmpnt Tlr Inbone 3 Dome Ankl Sulcus Implanted:Qty : 1 on 03/08/2017 by Nilesh Mojica DO at [facility] Left: Ankle Posibl. 12/09/2024 [id number] / / [id number] Infinity Poly Insert Implanted:Qty : 1 on 03/08/2017 by Nilesh Mojica DO at [facility] Left: Ankle Posibl. 10/22/2024 [id number] / / [id number] Screw Qckfix Kyler Canc 4.0 X 46 Implanted:Qty : 1 on 03/08/2017 by Nilesh Mojica DO at [facility] Left: Ankle Ar[employer] [id number] / / Plate 61mm 3 Hl Hk Lck Ss Ft/Ankl Mdl Implanted:Qty : 1 on 03/08/2017 by Nilesh Mojica DO at [facility] Left: Ankle [employer] [id number]-[id number] / / Screw 3.5mm 38mm T15 Hexalobe Ft Ankl Implanted:Qty : 1 on 03/08/2017 by Nilesh Mojica DO at [facility] Left: Ankle [employer] AR-[id number] / / Graft Bone Othblst Ii Dbm Canc 1cc Alg - [id number] Implanted:Qty : 1 on 03/08/2017 by Nilesh Mojica DO at [facility] Left: Ankle [employer] 01/01/2019 / [id number] / [id number] Explanted Type Area Cuff Maker Device Identifier Shelf Expiration Date Model / Serial / Lot Jonathan Total Ank Replacement Explanted:Qty: 1 on 03/08/2017 at [facility] Left: Ankle [employer] TOTAL ANKLE REPL MORE / / Screw Qckfix Kyler Canc 4.0 X 46 Explanted:Qty: 1 on 03/08/2017 by Nilesh Mojica DO at [facility] Left: Ankle [employer] AR-[id number] PTS / / Insurance MEDICARE MEDICARE SUPPLEMENT PAYOR GENERIC [facility] Advance Directives Documents on File Type Date Recorded Patient Collection Administrator Expl anation Adv Directive/Living Will/POA 03/12/2017 8:08 PM * Full Code (Latest Code Status on File) Date Activated Date Inactivated Comments 03/08/2017 12:28 PM 03/09/2017 4:41 PM Care Teams Artist Suspect Relationship Specialty Start Date End Date Leticia Handley MD PCP - General Internal Medicine 12/06/16 Nilesh Mojica DO Orthopedic Surgery 12/06/16 Enoc Sheridan, PAMonieC [address] [place] [address] Physician Supervisor Cereal Physician Supervisor Cereal 03/13/17
--- OUTSIDE RECORDS SUMMARY | 2024-09-10 17:19 | XMS_ITS | Encounter Summary ---
Author Organization [facility] Address [address] [place] [address] Care Team Providers Care Endoscopy Technician Name Role Phone Leticia Handley MD Primary Care Provider [phone] Karrie Mcgregor DO Primary Care Provide r Leticia Handley MD Primary Care Provider [phone] Encounter Details Date Type Department Care Team (Late st Contact Info) Description 04/22/2019 Telephone [facility] [address] [place] [address] Steff Shah, RT Social History Tobacco Use Types Packs/Day Years Used Date Smoking Tobacco: Never Smokeless Tobacco: Never Alcohol Use Standard Drinks/Week Comments Yes 0 (1 standard drink = 0.6 oz pur e alcohol) Sex and Gender Information Value Date Recorded Sex Assigned at Not on file 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
--- OUTSIDE RECORDS SUMMARY | 2024-09-10 17:19 | XMS_ITS | Encounter Summary ---
Author Organization [facility] Address [address] [place] [address] Phone Care Team Providers Care Manager Food Safety Name Role Phone Leticia Handley MD Primary Care Provider [phone] Reason for Referral * Medication Authorization (Routine) - Pending Review Specialty Diagnoses / Procedures Referred By Contac t Referred To Contact Diagnoses Sialorrhea Isiah Brown MD PhD 1 [place] [address] Phone: tel: fax: Referral ID Status Reason Start Date Expiration Date V isits Requested Visits Authorized [id number] Pending Review 09/04/2024 10/04/2024 1 1 Encounter Details Date Type Department Care Team (Late st Contact Info) Description 09/09/2024 Orders Only [facility] Movement Disorders [address]th [place] [address] [place] [address] Isiah Brown MD PhD [address] [place] [address] Sialorrhea Social History Tobacco Use Types Packs/Day Years [...] on file 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 Gender Identity Not on file Sexual Orientation Not on file documented as of this encounter Plan of Treatment Not on file documented as of this encounter Visit Diagnoses Diagnosis Sialorrhea Disturbance of salivary secretion documented in this encounter Orders Medications Ordered That Rolf ht Not Have Been Administered Count Last Ordered Date First Ordered Date onabotulinumtoxin A (BOTOX) injection 100 Units 1 09/09/2024 documented in this encounter Care Teams Manager Food Safety Relationship Specialty Start Date End Date Leticia Handley MD [address] [place] [address] PCP - General Internal Medicine 05/08/23 documented as of this encounter
--- OUTSIDE RECORDS SUMMARY | 2024-09-10 17:19 | XMS_ITS ---
Author Organization [facility] Address [address] [place], [place] [id number] Care Team Providers Care Handle Attacher Name Role Phone ANASTASIIA ORNELAS Unavailable [phone] Estela Handley Unavailable Unavailable Allergies No Known Allergies REASON FOR VISIT Patient presents for at-risk foot care . The patient has painful toenails and calluses that are causing difficulty with ambulation and shoegear. 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 Modifiers: Q8 94230 DEBRIDE NAIL, 6 OR MORE. Modifiers: 59, Q8 * D MARKETING ASSOCIATE Sign off status: Completed true * Provider: Whitney Ornelas DPM Date: 0 05/22/2024 Generated for Joseph Gordon/Enzo on: 0 09/10/2024 05:18 PM CDT History [...]
[2024-09-10 17:30] LABS: Hematocrit 28.5 % (37.0-46.0); Hemoglobin 9.1 g/dL (12.4-15.3); Mean Corpuscular HGB Conc 31.9 g/dL (32-36); Mean Corpuscular Hemoglobin 30.8 pg (27.0-31.0); Mean Corpuscular Volume 96.6 fL (78.0-102.0); Mean Platelet Volume 8.6 fl (8.7-11.0); Platelet Count Result 179 K/mm3 (150-420); Red Blood Count 2.95 M/mm3 (4.70-6.10)
[2024-09-10 18:06] LABS: Erythrocyte Sedimentation Rate 15 mm/hr (0-20)
[2024-09-10 18:37] LABS: Albumin Level 3.7 g/dL (3.5-5.1); Alkaline Phosphatase 114 U/L (38-126); Anion Gap 3 mmol/L (4-12); Aspartate Amino Transferase 28 U/L (17-59); Bilirubin,Total 0.4 mg/dL (0.2-1.3); Blood Urea Nitrogen 25 mg/dL (9-20); CRP < 0.5 mg/dL (<1.0); Calcium 8.4 mg/dL (8.4-10.2); Carbon Dioxide 29 mmol/L (22-30); Chloride 103 mmol/L (98-107); Estimated Glomerular Filt Rate > 60; Glucose 88 mg/dL (65-110); Iron 45 ug/dL (49-181); Osmolality Calculated 283 mOsm/kg (285-295); Potassium 4.4 mmol/L (3.4-5.0); Sodium 135 mmol/L (137-145); Total Protein 6.1 g/dL (6.3-8.2)
[2024-09-10 18:46] LABS: Alanine Aminotransferase < 6 U/L (6-50)
[2024-09-10 19:44] LABS: NT Pro B Type Natriuretic Pept 873 pg/mL (19.9-100)
[2024-09-10 19:52] LABS: Free T4 Free Thyroxine 1.09 ng/dL (0.78-2.19)
== END 2024-09-10 17:16 | disposition home or self-care (01) ==
LOC: CHSLAB 17:16
PROVIDERS: PCP Internal Medicine; Visit Provider Internal Medicine
DX: I50.9 Heart failure, unspecified (principal); R53.83 Other fatigue; I48.19 Other persistent atrial fibrillation
CPT/HCPCS: 36415; 80053; 82728; 83540; 83880; 84439; 84443; 85027; 85652; 86140

== ENCOUNTER 2024-09-19 12:11 | Outpatient (CLI) | payer MEDICARE, SELFPAY ==
--- OUTSIDE RECORDS SUMMARY | 2024-09-19 12:15 | XMS_ITS | Referral Summary ---
Author Organization [facility] [address] Address [address] [place] [address] Care Team Providers Care Elementary Vocal Music Teacher Name Role Phone Leticia Handley MD Primary Care Provider Encounters Date Type Department Care Team Description 09/09/2024 Orders Only [facility] Movement Disorders [address] [place] [address] Advanced Medicine 6th [place] [phone] Isiah Brown MD PhD Sialorrhea 09/09/2024 Telephone [facility] Movement Disorders [address] [place] [address] Advanced Medicine [address] [place] [phone] Charlette Arias RN 09/09/2024 11:15 AM CDT Procedure visit [facility] Movement Disorders [address] [place] [address] Medicine 6th [place] [phone] Isiah Brown MD PhD Sialorrhea (Primary Dx); Parkinson's disease without dyskinesia or fluctuating manifestations (HCC) 09/02/2024 Telephone [facility] Movement Disorders [address] [place] [address] Medicine 7th [place] [phone] Zelda Negron RN 08/20/2024 Orders Only [facility] Movement Disorders [address] [place] [address] Advanced Medicine 6th [place] [phone] Isiah Brown MD PhD Sialorrhea (Primary Dx) 08/13/2024 Telephone [facility] Movement Disorders [address] [facility] 7th [place] [address] Zelda Negron RN 08/12/2024 1:30 PM CDT Office Visit [facility] Movement Disorders [address] [facility] 7th [place] [address] Isiah Brown MD PhD Parkinson's disease without dyskinesia or fluctuating manifestations (HCC) (Primary Dx); Sialorrhea 06/27/2024 Telephone [facility] Cardiology [address] [place] [address] Freeman Chavira MD from Last [...] 1 tablet (75 mcg total) by mouth cupola repairer before breakfast 30 tablet 1 06/17/19 23 [...] day 270 tablet 1 07/18/19 25 Active brimonidine-pan loL (COMBIGAN) 0.2-0.5 % ophthalmic solution Administer 1 drop into both eyes 2 (two) times a day Active mecobalamin, vitamin B12, (B12 Active) 1,000 mcg tablet,chewable Take 1,000 mcg by mouth daily 05/08/19 25 Active vitamin b complex tablet Take 1 tablet by mouth daily 05/08/19 25 Active carbidopa-levodo pa (SINEMET) 25-250 mg per tabletIndication s:Idiopathic Parkinsonism Take 2 tablets by mouth 3 (three) times a day 540 tablet 3 08/14/19 25 026 Active glycopyrrolate (ROBINUL) 1 mg tabletIndication s:Sialorrhea Take 1 tablet (1 mg total) by [...] we should send an updated script to [facility] in 2-3 weeks) -start glycopyrrolate 1mg TID for sialorrhea -if ineffective consider Botox injections Assessment & Plan (03/12/2024 1:31 PM MEDICAL NUMERICAL CONTROL OPERATOR): He has stage 3 parkinsonism with [...] placement 11/29/2016 Coronary artery disease invo lving [place] coronary artery of [place] heart without angina pectoris 08/14/2016 Overview (09/29/2016): Coronary artery disease involving [place] coronary artery of [place] heart with other form of angina pectoris [...] relatives? Three times a week 06/06/2022 Attends [employer] Not on file 06/06 Active Member [...] place to sleep or slept in a custodial (including now)? No 06/06/2022 Personal Safety Answer Date Recorded Getting School Help Needed Denies 05/05 Sex and Gender Information Value Date Recorded Sex Assigned at Not on file Legal Sex Male 12:29 AM MEDICAL NUMERICAL CONTROL OPERATOR Gender Identity Not on file Sexual Orientation Not on file Last Filed Vital Signs Vital Sign Reading Time Taken Comments Blood Pressure 105/67 09/09/2024 12:00 PM CDT Pulse 67 09/09/2024 12:00 PM CDT Temperature 36.8 C (98.2 F) 08/12/2024 12:47 PM CDT Respiratory Rate 18 04/10/2024 2:18 PM MEDICAL NUMERICAL CONTROL OPERATOR Oxygen Saturation 97% 04/10/2024 2:18 PM MEDICAL NUMERICAL CONTROL OPERATOR Inhaled Oxygen Concentration - - Weight 81.2 kg (179 lb) 09/09/2024 11:03 AM CDT Height 167.6 cm (5' 6 ) 09/09/2024 11:03 AM CDT Body Mass Index 28.89 09/09/2024 11:03 AM CDT Plan of Treatment Not on file Medical Devices Implanted Type Area Radiology Assistant Device Identifier Shelf Expiration Date Model / Serial / Lot Ziggy Medical Plate Bone Low Profile 6 Hole H Shape Ti 115.102.06 - [id number] Implanted:Qty: 1 on 06/05/2022 by Nicolás Arevalo MD at [facility] Plate N/A: Sternum [employer] 115.102. 06 / / Ziggy Medical Plate Bone Low Profile 4 Hole Box Ti 115.103.04 - [id number] Implanted:Qty: 1 on 06/05/2022 by Nicolás Arevalo MD at [facility] Plate N/A: Sternum [employer] 115.103. 04 / / Ziggy Medical Plate Bone Low Profile 6 Hole O Concave Ti 115.604.06 - [id number] Implanted:Qty: 1 on 06/05/2022 by Nicolás Arevalo MD at [facility] Plate N/A: Sternum [employer] 115.604. 06 / / Bhatti [employer] Von-Tim ds Perimount Magna Ease 23mm Bioprosthesis [id number] - [id number] - [id number] Implanted:Qty: 1 on 06/05/2022 by Nicolás Arevalo MD at [facility] Prosthetic Valve N/A: Heart [employer] 07/18/2024 [id number] / [id number] / Ziggy Medical Screw Bone Slf Drl Full Thread Locking 3.5x14mm Ti 100.035.14 - [id number] Implanted:Qty: 10 on 06/05/2022 by Nicolás Arevalo MD at [facility] Screw N/A: Sternum [employer] 100.035. 14 / / Ziggy Medical Screw Bone Slf Drl Full Thread Locking 3.5x16mm Ti 100.035.16 - [id number] Implanted:Qty: 6 on 06/05/2022 by Nicolás Arevalo MD at [facility] Screw N/A: Sternum [employer] 100.035. 16 / / Procedures Procedure Name Priority Date/Time Associated Diagnosis Comments POCT LIPID PANEL Routine 08/02/2023 10:2 9 AM CDT Coronary artery disease involving [place] coronary artery of [place] heart without angina pectoris EGFR Routine 06/16/2022 10:03 AM MEDICAL NUMERICAL CONTROL OPERATOR HEMOGLOBIN A1C Routine 05/30/2022 12:59 PM MEDICAL NUMERICAL CONTROL OPERATOR Preop testing Type 2 diabetes mellitus [...] Final Result * eGFR (06/16/2022 10:03 AM MEDICAL NUMERICAL CONTROL OPERATOR) eGFR 67 mL/min/1. 73 m2 RYAN [...] reviewed 2021. Blood 06/16/2022 10:0 3 AM MEDICAL NUMERICAL CONTROL OPERATOR 06/16/2022 10:03 AM MEDICAL NUMERICAL CONTROL OPERATOR Nicolás Arevalo MD LAB BLOOD ORDERABLES Final Res ult RYAN LUX [address] [address] Department [place] [address] * Hemoglobin A1c (05/30/2022 12:59 PM MEDICAL NUMERICAL CONTROL OPERATOR) Hgb A1C 5.5 4.0 - 5.6 % RYAN [facility]UX Estimated Average Glucose 111 mg/dL [facility] Comment: The ADA recommends reporting an estimated Average Glucose (eAG) with all Hemoglobin A1c results using the equation derived from a study of 507 normal and diabetic adults. Minority populations were underrepresented and children were not included. (Diabetes Care 31:1816-7189, 2008). The eAG is not equivalent to a fasting glucose. Blood 05/30/2022 12:5 9 PM MEDICAL NUMERICAL CONTROL OPERATOR 05/30/2022 1:03 PM MEDICAL NUMERICAL CONTROL OPERATOR Nicolás Arevalo MD LAB BLOOD ORDERABLES Final Res ult [facility] [address] [address] Department [place] [address] from Last 3 Months or Most Recently Relevant to Health Maintenance Insurance MEDICARE [facility] MEDICARE SUPPLEMENT INSURANCE MEDICARE [facility] MEDICARE SUPPLEMENT MEDICARE [facility] MEDICARE SUPPLEMENT Advance Directives For more information, please contact: [phone] * Full Code (Latest Code Status on File) Date Activated Date Inactivated Comments 06/05/2022 2:49 PM 06/16/2022 5:28 PM Care Teams Elementary Vocal Music Teacher Relationship Specialty Start Date End Date Leticia Handley MD [address] [place] [address] PCP - General Internal Medicine 05/08/23
--- OUTSIDE RECORDS SUMMARY | 2024-09-19 12:15 | XMS_ITS | Encounter Summary ---
Author Organization [facility] Address [address] [place] [address] Care Team Providers Care Field Education Director Name Role Phone Leticia Handley MD Primary Care Provider + [phone] Karrie Mcgregor DO Primary Care Provide r Leticia Handley MD Primary Care Provider + [phone] Encounter Details Date Type Department Care Team (Late st Contact Info) Description 04/22/2019 Telephone [facility] Radiology [address] [place] [address] Steff Shah, RT Social History Tobacco Use Types Packs/Day Years Used Date Smoking Tobacco: Never Smokeless Tobacco: Never Alcohol Use Standard Drinks/Week Comments Yes 0 (1 standard drink = 0.6 oz pur e alcohol) Sex and Gender Information Value Date Recorded Sex Assigned at Not on file Legal Sex Male 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
--- OUTSIDE RECORDS SUMMARY | 2024-09-19 12:15 | XMS_ITS | Patient Health Record ---
Author Organization [facility] Address [address] [place], [place] [address] Care Team Providers Care Java Grails Developer Name Role Phone EVYMoisés ANASTASIIA Unavailable [phone] Estela Handley Unavailable Unavailable CARLOS STEVE Unavailable [phone] Allergies No Known Allergies Reason For Referral No Information Immunizations Vaccine Route Administration Date Status Comme nts Influenza, high dose seasonal Unknown 02/12/2023 Admini stered Vital Signs Height-cm 167.64 cm 11/29/2023 Weight-kg 90.72 kg 11/29/2023 Height 66.00 in 11/29/2023 Weight 200 lbs 11/29/2023 BMI 32.28 kg/m2 11/29/2023 Encounters Encounter Location Date Provider Diagnosis [address] [id number] 07/24/2024 ANASTASIIA ORNELAS Tinea unguium B35.1 ; Pain in right foot M79.671 ; Pain in left foot M79.672 ; Atherosclerosis of [place] arteries of extremities with intermittent claudication, bilateral legs I70.213 and Acquired keratosis [keratoderma] palmaris et plantaris L85.[address] [id number] 09/27/2023 CARLOS STEVE Other hammer toe(s) (acquired), right foot M20.41 ; Tinea unguium B35.1 ; Other hammer toe(s) (acquired), left foot M20.42 ; Pain in right toe(s) M79.674 ; Pain in left toe(s) M79.675 ; Pain in right foot M79.671 ; Pain in left foot M79.672 ; 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[place] arteries of extremities, bilateral legs I70.203 and Acquired keratosis [keratoderma] palmaris et plantaris L85.[address] [id number] 11/29/2023 CARLOS STEVE Other hammer toe(s) (acquired), right foot M20.41 ; Tinea unguium B35.1 ; Other hammer toe(s) (acquired), left foot M20.42 ; Pain in right toe(s) M79.674 ; Pain in left toe(s) M79.675 ; Pain in right foot M79.671 ; Pain in left foot M79.672 ; 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[place] arteries of extremities, bilateral legs I70.203 and Acquired keratosis [keratoderma] palmaris et plantaris L85.[address] [id number] 01/31/2024 CARLOS STEVE Other hammer toe(s) (acquired), right foot M20.41 ; Tinea unguium B35.1 ; Other hammer toe(s) (acquired), left foot M20.42 ; Pain in right toe(s) M79.674 ; Pain in left toe(s) M79.675 ; Pain in right foot M79.671 ; Pain in left foot M79.672 ; 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[place] arteries of extremities, bilateral legs I70.203 and Acquired keratosis [keratoderma] palmaris et plantaris L85.[address] [id number] 04/10/2024 CARLOS STEVE Other hammer toe(s) (acquired), right foot M20.41 ; Tinea unguium B35.1 ; Other hammer toe(s) (acquired), left foot M20.42 ; Pain in right toe(s) M79.674 ; Pain in left toe(s) M79.675 ; Pain in right foot M79.671 ; Pain in left foot M79.672 ; 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[place] arteries of extremities, bilateral legs I70.203 and Acquired keratosis [keratoderma] palmaris et plantaris L85.[address] [id number] 05/22/2024 ANASTASIIA ORNELAS Tinea unguium B35.1 ; Pain in right foot M79.671 ; Pain in left foot M79.672 ; Atherosclerosis of [place] arteries of extremities with intermittent claudication, bilateral [...] toe(s) (ICD-10 - M79.674) 07/24/2024 Atherosclerosis of [place] arteries of extremities with intermittent claudication, bilateral legs (ICD-10 - I70.213) 05/22/2024 Atherosclerosis of [place] arteries of extremities with intermittent claudication, bilateral [...] (ICD-10 - M79.672) 09/27/2023 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[place] arteries of extremities, bilateral legs (ICD-10 - I70.203) Patient educated on risks and aggravating factors of PVD, including conservative treatment options such as a diet and exercise regimen to aid in slowing progression of vascular disease 11/29/2023 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[place] arteries of extremities, bilateral legs (ICD-10 - I70.203) Patient educated on risks and aggravating factors of PVD, including conservative treatment options such as a diet and exercise regimen to aid in slowing progression of vascular disease 01/31/2024 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[place] arteries of extremities, bilateral legs (ICD-10 - I70.203) Patient educated on risks and aggravating factors of PVD, including conservative treatment options such as a diet and exercise regimen to aid in slowing progression of vascular disease 04/10/2024 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[place] arteries of extremities, bilateral legs (ICD-10 - [...] Details Provider Name:OPAL GUZMAN, 09/25/2024 03:10:00 PM, [address] [place] [address], [id number], Insurance Providers Payer Name Payer Address Payer Phone Subscriber Number Group Number Insured Name Patient Relationship to Insured Coverage Start Date Coverage End Date Medicare Part B [place] [address] [place] [address] [id number] KATIE CRUZ Self - patient is the insured [facility] ([facility]) ATTN CLAIMS [address] [place] [address] [id number] KATIE CRUZ Self - patient is the insured 4
--- OUTSIDE RECORDS SUMMARY | 2024-09-19 12:15 | XMS_ITS | Encounter Summary ---
Author Organization [facility] Address [address] [place] [address] Care Team Providers Care Diesel Powerplant Supervisor Name Role Phone Leticia Handley MD Primary Care Provider [phone] Karrie Mcgregor DO Primary Care Provide r Leticia Handley MD Primary Care Provider + [phone] Encounter Details Date Type Department Care Team (Late st Contact Info) Description 08/15/2016 Orders Only [facility] ProviderNila MD [address] [place] [address] Social History Tobacco Use Types Packs/Day Years Used Date Smoking Tobacco: Never Alcohol Use Standard Drinks/Week Comments Yes 0 (1 standard drink = 0.6 oz pur e alcohol) Sex and Gender Information Value Date Recorded Sex Assigned at Not on file Legal Sex Male 12:29 AM PET AMBASSADOR Gender Identity Not on file Sexual Orientation [...] on filedocumented in this encounter Care Teams Diesel Powerplant Supervisor Relationship Specialty Start Date End Date Leticia Handley MD [address] [place] [address] PCP - General 08/11/16 03/21/23 Karrie Mcgregor DO [address] [place] [address] PCP - General Psychiatry 03/22/23 05/07/23 Leticia Handley MD [address] [place] [address] PCP - General Internal Medicine 05/08/23 documented as of this encounter
--- OUTSIDE RECORDS SUMMARY | 2024-09-19 12:15 | XMS_ITS | Clinical Summary ---
Author Organization [facility] Address [address] [place] [address] Care Team Providers Care Bin Operator Name Role Phone Leticia Handley MD Primary Care Provider [phone] Allergies No known active allergies Medications clopidogrel [...] opa (SINEMET) 25-250 MG tabletIndicatio ns:Parkinson's disease ([facility]) TAKE 1 TABLET BY MOUTH 4 TIMES DAILY 360 tablet 3 03/24/2022 Active pramipexole (MIRAPEX) 1 MG tabletIndicatio ns:Parkinson's disease ([facility]) Take 3 tablets (3 mg total) by [...] artery disease of n ative artery of [place] heart with stable angina pectoris 08/14/2016 Overview (05/27/2019): Overview: Coronary artery disease involving [place] coronary artery of [place] heart with other form of angina pectoris Dyslipidemia associated with type 2 diabetes mellitus ([facility]) 11/15/2015 Overview (05/27/2019): Overview: DM type 2 with diabetic dyslipidemia Hypertensive heart disease w ith congestive heart failure ([facility]) 08/02/2015 Overview (05/27/2019): Overview: Hypertensive heart disease with diastolic heart failure YANET on CPAP 08/02/2015 Overview (05/27/2019): Overview: YANET on CPAP Benign hypertension 04/26/2015 Overview (05/27/2019): Overview: HTN (hypertension), benign Dyslipidemia 04/26/2015 Overview (05/27/2019): Overview: Mixed dyslipidemia Cardiomyopathy ([facility]) 04/26/2015 Overview (05/27/2019): Overview: Cardiomyopathy Myocardial infarction ([facility]) 04/26/20 15 Overview (05/27/2019): Overview: ST elevation [...] CDT Respiratory Rate 18 07/13/2021 2:45 PM MANAGER PAPER Oxygen Saturation 96% 12/16/2021 8:52 AM CDT [...] age to complete this topic Insurance MEDICARE [employer] MEDICARE [employer] Care Teams Bin Operator Relationship Specialty Start Date End Date Leticia Handley MD [address] [place] [address] PCP - General INTERNAL MEDICINE 08/09/18
--- OUTSIDE RECORDS SUMMARY | 2024-09-19 12:15 | XMS_ITS | Clinical Summary ---
Author Organization [facility] Address [address] [address] Care Team Providers Care Driver Helper Name Role Phone Leticia Handley MD Primary Care Provider [phone] Nilesh Mojica DO Unavailable Enoc Sheridan PA-C Unavailable [phone] Source Comments [facility],non-owned Affiliates and Associated Physician Practices is amultiple site organization consisting of ambulatory clinics and hospital sitesin [place], [place], [place] and [place]. This disclosure is being madepursuant to the Care Everywhere program and may not contain all information available regarding this patient. Last updated 18.[facility] [employer] Allergies No known active allergies Medications * [...] st Contact Info) Description 03/09/2025 10:40 AM CHILD WELFARE CONSULTANT Office Visit [facility] Health Orthopedics [address], [address] [address] Nilesh Mojica DO [address] [address] Health Maintenance Due Date Last [...] this topic Medical Devices Implanted Type Area Restaurant Supervisor Device Identifier Shelf Expiration Date Model / Serial / Lot Stem Tlr Inbone Ii 1 Lg 10mm Ankl Implanted:Qty : 1 on 03/08/2017 by Nilesh Mojica DO at [facility] Left: Ankle iSOCO 12/07/2023 [id number] / / [id number] 4 Long Tibial Tray Implanted:Qty : 1 on 03/08/2017 by Nilesh Mojica DO at [facility] Left: Ankle iSOCO 01/09/2025 [id number] / / [id number] Cmpnt Tlr Inbone 3 Dome Ankl Sulcus Implanted:Qty : 1 on 03/08/2017 by Nilesh Mojica DO at [facility] Left: Ankle iSOCO 12/09/2024 [id number] / / [id number] Infinity Poly Insert Implanted:Qty : 1 on 03/08/2017 by Nilesh Mojica DO at [facility] Left: Ankle iSOCO 10/22/2024 [id number] / / [id number] Screw Qckfix Kyler Canc 4.0 X 46 Implanted:Qty : 1 on 03/08/2017 by Nilesh Mojica DO at [facility] Left: Ankle Ar[employer]rex Inc [id number] / / Plate 61mm 3 Hl Hk Lck Ss Ft/Ankl Mdl Implanted:Qty : 1 on 03/08/2017 by Nilesh Mojica DO at [facility] Left: Ankle [employer] [id number]-[id number] / / Screw 3.5mm 38mm T15 Hexalobe Ft Ankl Implanted:Qty : 1 on 03/08/2017 by Nilesh Mojica DO at [facility] Left: Ankle [employer] AR-8835-38 / / Graft Bone Othblst Ii Dbm Canc 1cc Alg - [id number] Implanted:Qty : 1 on 03/08/2017 by Nilesh Mojica DO at [facility] Left: Ankle [employer] 01/01/2019 / [id number] / [id number] Explanted Type Area Restaurant Supervisor Device Identifier Shelf Expiration Date Model / Serial / Lot Jonathan Total Ank Replacement Explanted:Qty: 1 on 03/08/2017 at [facility] Left: Ankle [employer] TOTAL ANKLE REPL MORE / / Screw Qckfix Kyler Canc 4.0 X 46 Explanted:Qty: 1 on 03/08/2017 by Nilesh Mojica DO at [facility] Left: Ankle [employer] [id number] PTS / / Insurance MEDICARE MEDICARE SUPPLEMENT [facility] Advance Directives Documents on File Type Date Recorded Patient Transportation Department Supervisor Expl anation Adv Directive/Living Will/POA 03/12/2017 8:08 PM * Full Code (Latest Code Status on File) Date Activated Date Inactivated Comments 03/08/2017 12:28 PM 03/09/2017 4:41 PM Care Teams Driver Helper Relationship Specialty Start Date End Date Leticia Handley MD PCP - General Internal Medicine 12/06/16 Nilesh Mojica DO Orthopedic Surgery 12/06/16 Enoc Sheridan, PAMonieC [address] [place] [address] Physician Manager Continuous Improvement Physician Manager Continuous Improvement 03/13/17
--- OUTSIDE RECORDS SUMMARY | 2024-09-19 12:15 | XMS_ITS | Clinical Summary ---
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 [...] placement 11/29/2016 Coronary artery disease invo lving klawock coronary artery of klawock heart without angina pectoris 08/14/2016 Overview (09/29/2016): Coronary artery disease involving klawock coronary artery of klawock heart with other form of angina pectoris [...] Description 09/09/2024 11:15 AM CDT Procedure visit [facility] Movement Disorders [address] [place] [address] [place] [address] Isiah Brown MD PhD Sialorrhea (Primary Dx); Parkinson's disease without dyskinesia or fluctuating manifestations (HCC) 09/09/2024 Orders Only [facility] Disorders [address] [place] [address] Medicine [facility] [place] [address] Isiah Brown MD PhD Sialorrhea 09/09/2024 Telephone [facility] [address] [place] [phone] Charlette Arias RN 09/02/2024 Telephone [facility] [address] [place] [address] [place] [phone] Zelda Negron RN 08/20/2024 Orders Only [facility] [address] [place] [address] Medicine 6th [place] [address] Isiah Brown MD PhD Sialorrhea (Primary Dx) 08/13/2024 Telephone [facility] Movement [facility] Medicine [address] [place] [phone] Zelda Negron, BARRERA 08/12/2024 1:30 PM CDT Office Visit [facility] [address] [facility] 7th [place] [address] Isiah Brown MD PhD Parkinson's disease without dyskinesia or fluctuating manifestations (HCC) (Primary Dx); Sialorrhea 06/27/2024 Telephone [facility] Cardiology [address] [place] [address] Freeman Chavira MD from Last [...] Hypertension Hypertension Adiposity Obesity Sleep apnea CPAP AK (myocardial infarction) (HCC) 2014 CAD (coronary artery [...] relatives? Three times a week 06/06/2022 Attends Worship Services Not on file 06/06 Active Member [...] on file Legal Sex Male 12:29 AM POWER SYSTEM DISPATCHER Gender Identity Not on file Sexual Orientation Not on file Obstetrics History Last Filed Vital Signs Vital Sign Reading Time Taken Comments Blood Pressure 105/67 09/09/2024 12:00 PM CDT Pulse 67 09/09/2024 12:00 PM CDT Temperature 36.8 C (98.2 F) 08/12/2024 12:47 PM CDT Respiratory Rate 18 04/10/2024 2:18 PM POWER SYSTEM DISPATCHER Oxygen Saturation 97% 04/10/2024 2:18 PM POWER SYSTEM DISPATCHER Inhaled Oxygen Concentration - - Weight 81.2 [...] 09/10/2012, 06/13/2004 Medical Devices Implanted Type Area [employer] Device Identifier Shelf Expiration Date Model / Serial / Lot Zig[employer] Medical Plate Bone Low Profile 6 Hole H Shape Ti 115.102.06 - [id number] Implanted:Qty: 1 on 06/05/2022 by Nicolás Arevalo MD at Plate N/A: Sternum [employer] 115.102. 06 / / Ziggy Medical Plate Bone Low Profile 4 Hole Box Ti 115.103.04 - [id number] Implanted:Qty: 1 on 06/05/2022 by Nicolás Arevalo MD at Plate N/A: Sternum [employer] 115.103. 04 / / Ziggy Medical Plate Bone Low Profile 6 Hole O Concave Ti 115.604.06 - [id number] Implanted:Qty: 1 on 06/05/2022 by Nicolás Arevalo MD at Plate N/A: Sternum [employer] 115.604. 06 / / [employer] Von-Tim ds Perimount Magna Ease 23mm Bioprosthesis [id number] - [id number] - [id number] Implanted:Qty: 1 on 06/05/2022 by Nicolás Arevalo MD at Prosthetic Valve N/A: Heart [employer] 07/18/2024 [id number] 3MM / [id number] / Z[employer] Medical Screw Bone Slf Drl Full Thread Locking 3.5x14mm Ti 100.035.14 - [id number] Implanted:Qty: 10 on 06/05/2022 by Nicolás Arevalo MD at Screw N/A: Sternum [employer] 100.035. 14 / / [employer] Screw Bone Slf Drl Full Thread Locking 3.5x16mm Ti 100.035.16 - [id number] Implanted:Qty: 6 on 06/05/2022 by Nicolás Arevalo MD at Screw N/A: Sternum [employer] 100.035. 16 / / Procedures Procedure Name Priority Date/Time Associated Diagnosis Comments POCT LIPID PANEL Routine 08/02/2023 10:2 9 AM CDT Coronary artery disease involving klawock coronary artery of klawock heart without angina pectoris EGFR Routine 06/16/2022 10:03 AM POWER SYSTEM DISPATCHER HEMOGLOBIN A1C Routine 05/30/2022 12:59 PM POWER SYSTEM DISPATCHER Preop testing Type 2 diabetes mellitus with [...] Final Result * eGFR (06/16/2022 10:03 AM POWER SYSTEM DISPATCHER) Pathologist [facility] eGFR 67 mL/min/1. 73 m2 RYAN LUX [...] reviewed 2021. Blood 06/16/2022 10:0 3 AM POWER SYSTEM DISPATCHER 06/16/2022 10:03 AM POWER SYSTEM DISPATCHER Nicolás Arevalo MD LAB BLOOD ORDERABLES Final Res ult RYAN LUX [id number] [address] Department [place] [address] * Hemoglobin A1c (05/30/2022 12:59 PM POWER SYSTEM DISPATCHER) Hgb A1C 5.5 4.0 - 5.6 % RYAN LUX Estimated Average Glucose 111 mg/dL RYAN LUX Comment: The ADA recommends reporting an estimated Average Glucose (eAG) with all Hemoglobin A1c results using the equation derived from a study of 507 normal and diabetic adults. Minority populations were underrepresented and children were not included. (Diabetes Care 31:8148-8020, 2008). The eAG is not equivalent to a fasting glucose. Blood 05/30/2022 12:5 9 PM POWER SYSTEM DISPATCHER 05/30/2022 1:03 PM POWER SYSTEM DISPATCHER us Nicolás Arevalo MD LAB BLOOD ORDERABLES Final Res ult RYAN LUX [address] [address] Department [place] [address] from Last 3 Months or Most Recently Relevant to Health Maintenance Insurance MEDICARE FOR[facility] MEDICARE SUPPLEMENT INSURANCE MEDICARE [facility] MEDICARE SUPPLEMENT MEDICARE [facility] MEDICARE SUPPLEMENT Advance Directives For more information, please contact: [phone] * Full Code (Latest Code Status on File) Date Activated Date Inactivated Comments 06/05/2022 2:49 PM 06/16/2022 5:28 PM Care Teams Doweling Machine Operator Relationship Specialty Start Date End Date Leticia Handley MD [address] [place] [address] PCP - General Internal Medicine 05/08/23
--- OUTSIDE RECORDS SUMMARY | 2024-09-19 12:15 | XMS_ITS ---
Author Organization [facility] Address [address] [place], [place] [address] Care Team Providers Care Theater Teacher Name Role Phone ANASTASIIA ORNELAS Unavailable [phone] Estela Handley Unavailable Unavailable REASON FOR VISIT Patient presents for at-risk foot care . The patient has painful toenails and calluses that are causing difficulty with ambulation and shoegear. The onset is gradual Encounters Encounter Location Date Provider Diagnosis [address] [id number] 07/24/2024 ANASTASIIA ORNELAS Tinea unguium B35.1 ; Pain in right foot M79.671 ; Pain in left foot M79.672 ; Atherosclerosis of [place] arteries of extremities with intermittent claudication, bilateral [...] foot (ICD-10 - M79.672) 07/24/2024 Atherosclerosis of guid[place] arteries of extremities with intermittent claudication, bilateral [...] develop. Provider Name:OPAL GUZMAN, 09/25/2024 03:10:00 PM, [address] [place] [address], [id number], Progress Notes * KATIE CRUZDOB:1940 (83 yo M)Acc No.[id number]:07/24/2024 Patient: KATIE HOGAN Provider: Whitney Ornelas DPM :1940 A ge:83 Y S ex:Male Date:07/24/2024 Address:[address] [id number] Subjective: * Chief Complaints: * 1 . [...] seen by Dr. Handley was 06/2024., Initials [facility]. * Medical History: Objective: * Vitals: * [...] subungual debris. They are painful to palpation. V ascular: Dorsalis pedis pulse: 1 /4 b ilateral. Posterior tibial pulse: 0 /4 bilateral. Capillary refill: g reater than 3 seconds. Edema: N o edema bilateral. N eurologic: Gross sensation G rossly intact to light touch. There is negative Tinel's sign. M usculoskeletal: Muscle Strength M uscle strength is 5/5 in regards to dorsiflexion, plantarflexion, inversion, and eversion in bilateral lower extremities. Assessment: * Assessment: 1. T inea unguium - B35.1 (Primary) 2 . P ain in right foot - M79.671 3 . P ain in left foot - M79.672 4 . A therosclerosis of guidivil[place] arteries of extremities with intermittent claudication, bilateral [...] 1055 TRIM SKIN LESION, Modifiers: Q8 , 86067 DEBRIDE NAIL, 6 OR MORE, Modifiers: 59 , Q8 * Follow Up: 1 0 - 12 weeks (Reason: At-Risk Foot care, sooner if problems develop.) * Billing Information: * Visit Code: * Procedure Codes: 23825 TRIM SKIN LESION. Modifiers: Q8 75984 DEBRIDE NAIL, 6 OR MORE. Modifiers: 59, Q8 * Electronic signature of ANASTASIIA ORNELAS DPM on 09/19/2024 at 12:14 PM CDT Sign off status: Pending * Provider: Whitney Ornelas DPM Date: 0 07/24/2024 Generated for Joseph jang/Triny/eTsalinasitting on: 0 09/19/2024 12:14 PM CDT History and Physical Notes * [...]
--- OUTSIDE RECORDS SUMMARY | 2024-09-19 12:15 | XMS_ITS | Encounter Summary ---
Author Organization [facility] Address [address] [place] [address] Care Team Providers Care Hooker Inspector Name Role Phone Leticia Handley MD Primary Care Provider [phone] Nilesh Mojica DO Unavailable [phone] Enoc Sheridan PA-C Unavailable Encounter Details Date Type Department Care Team (Late st Contact Info) Description 12/06/2016 [facility] Outpatient Visit [facility] Orthopedics - Radiology [address] [place] [address] Nilesh Mojica [facility] Medical [address] [address] Social History Tobacco Use Types [...] st Contact Info) Description 03/09/2025 10:40 AM DIRECTOR PHONE Office Visit [facility] Health Orthopedics [address], [address] [address] Nilesh Mojica [address] [address] documented as of this encounter Visit Diagnoses Not on filedocumented in this encounter Care Teams Hooker Inspector Relationship Specialty Start Date End Date Leticia Handley MD PCP - General Internal Medicine 12/06/16 Nilesh Mojica DO Orthopedic Surgery 12/06/16 Enoc Sheridan PA-C [address] [place] [address] Physician Real Estate Assistant Physician Real Estate Assistant 03/13/17 documented as of this encounter
[2024-09-19] MEDS: IRON SUCROSE COMPLEX 300 MG in SODIUM CHLORIDE 0.9% IV 250 ML 125 MG IVPB (12:30)
[2024-09-19 12:44] VITALS: BP 128/74; PULSE 68; RESP 16; TEMP 36.6; O2SAT 97
[2024-09-19 14:39] VITALS: BP 137/66; PULSE 64; RESP 16; TEMP 36.4; O2SAT 97
--- NOTE | 2024-09-19 14:39 | PC.NURSE ---
Patient here for #2 of 2 IV Venofer infusions. Education given. No concerns voiced. Reports tolerated Venofer infusions well in the past. Infusion administered. SEE MAR/patient care notes. Tolerated well.
== END 2024-09-19 12:12 | disposition home or self-care (01) ==
LOC: CHSLAB 12:14 → CHSTREATRM 12:23
PROVIDERS: PCP Internal Medicine; Visit Provider Internal Medicine
DX: D50.9 Iron deficiency anemia, unspecified (principal)
CPT/HCPCS: 96365; 96366; J1756; J7050

== ENCOUNTER 2024-10-01 10:18 | Emergency (ER) | payer MEDICARE, SELFPAY ==
[2024-10-01] VITALS (18 sets, daily range): BP systolic 102–130; BP diastolic 58–73; PULSE 64–73; RESP 12–20; TEMP 36.8; O2SAT 96–100
--- NOTE | ~2024-10-01 | XR_ITS ---
XR chest 1V portable 10/01/2024 11:39 Indication: Shortness of breath and weakness Procedure: AP portable chest Comparison: Comparison to multiple prior studies sequentially, with oldest reviewed study dated 12/02. Findings: Stable cardiomediastinal silhouette. Status post median sternotomy for CABG. There is a pro sthetic heart valve. Chronic left pleural effusion/pleural thickening. Chronic left basilar atelectas is/scarring. There are multiple healed left rib fractures. No acute focal pneumonia, edema or pneumot horax. Impression: 1: No acute cardiopulmonary disease. No significant change. Reviewed, dictated and finalized at location A. Impression: 1: No acute cardiopulmonary disease. No significant change.
--- NOTE | ~2024-10-01 | CT_ITS ---
Non-contrast Head CT History: Weakness COMPARISON: 04/23/2024 Technique: Axial non-contrast imaging of the brain was performed. Dose reduction technique was used on this scan by utilizing automated exposure control and iterative reconstruction technique. The dose -length product (DLP) was 605.33 mGy-cm. Findings: There is no evidence of intracranial hemorrhage, mass lesion, or acute infarct. Brain par enchyma appears normal. The ventricles and subarachnoid spaces are normal in size. The calvarium ap pears normal. The visualized paranasal sinuses and mastoid air cells are clear. Impression: No significant abnormality seen. Reviewed, dictated and finalized at location . Impression: No significant abnormality seen.
--- NOTE | 2024-10-01 10:19 | ED.WEAKNESS ---
HPI - Weakness General Chief complaint: Weakness Stated complaint: weakness Source: patient and family Mode of arrival: ambulatory Limitations: no limitations History of Present Illness HPI Narrative: 83-year-old male with a history of hypertension, diabetes mellitus, dyslipidemia, hypothyroidism CAD status post stent status post AVR and CABG in 2022, atrial fibrillation, Parkinson is a chronic low blood pressure on midodrine woke up this morning with -- generalized weakness -- shortness of breath -- head feels funny. No focal deficit. No blurred vision. No headache. no chest pain no fever or chills nausea/ vomiting /abdominal pain / diarrhea. MD Complaint: generalized weakness Onset (ago): hour(s) ( 6 hours) Duration: constant Location: generalized Severity: mild Relieving factors: none Exacerbating factors: none Associated symptoms: denies other symptoms Related Data Home Medications ?Medication ?Instructions ?Recorded ?Confirmed ?Last Taken ?Type atorvastatin 20 mg tablet 40 mg PO HS 07/15/21 09/19/24 07/15/24 History bimatoprost 0.01 % eye drops 1 drp EACH EYE HS 07/15/21 10/01/24 07/15/24 History (Krish) levothyroxine 75 mcg tablet 75 mcg PO DAILY 07/15/21 09/19/24 07/16/24 History aspirin 81 mg tablet,delayed 81 mg PO DAILY 06/16/22 10/01/24 07/16/24 History release brimonidine 0.2 %-timolol 0.5 % 1 drp EACH EYE BID 06/16/22 09/19/24 07/16/24 History eye drops midodrine 5 mg tablet 5 mg PO TID 06/16/22 09/19/24 07/16/24 History rivaroxaban 20 mg tablet (Xarelto) 20 mg PO DAILY 03/13/23 09/19/24 07/16/24 History terazosin 10 mg capsule 10 mg PO HS 03/13/23 09/19/24 07/15/24 History multivitamin 1 tablet PO DAILY 10/09/23 09/19/24 07/16/24 History polyethylene glycol 3350 17 gram 17 g PO DAILY 10/09/23 10/01/24 07/16/24 History oral powder packet (Miralax) vitamins A,C,H-ykic-vmzqrl 2,148 2 tablet PO BID 10/09/23 09/19/24 07/16/24 History mcg-113 mg-45 mg-17.4 mg tablet (PreserVision AREDS) potassium chloride 10 mEq 10 meq PO DAILY 10/15/23 09/19/24 07/16/24 History tablet,extended release pramipexole 1 mg tablet See Rx Instructions .Route .COMPLEX 11/16/23 09/19/24 07/16/24 History ferrous sulfate 325 mg (65 mg 325 mg PO DAILY 12/14/23 09/19/24 07/16/24 History iron) tablet carbidopa 25 mg-levodopa 100 mg 1.5 tablet PO TID 03/21/24 10/01/24 07/16/24 History tablet carbidopa 25 mg-levodopa 250 mg 2 tablet PO TID 03/21/24 09/19/24 07/16/24 History tablet cinnamon bark 500 mg capsule 500 mg PO DAILY 03/21/24 10/01/24 07/16/24 History (Cinnamon) furosemide 40 mg tablet 40 mg PO QAM 03/21/24 09/19/24 07/16/24 History Allergies Allergy/AdvReac Type Severity Reaction Status Date / Time No Known Allergies Allergy Verified 10/01/24 10:19 Review of Systems Review of Systems: All systems reviewed & are unremarkable except as noted in HPI and below Constitutional: Constitutional: Reports as per HPI, Reports no additional constitutional complaints and Reports weakness Eyes: Eyes: Reports as per HPI and Reports no additional eye complaints ENT: Reports system reviewed and no additional complaints, except as documented and Reports as per HPI Cardiovascular: Cardiovascular: Reports as per HPI and Reports no additional cardiovascular complaints Respiratory: Respiratory: Reports as per HPI, Reports no additional respiratory complaints and Reports dyspnea Gastrointestinal: Gastrointestinal: Reports as per HPI and Reports no additional gastrointestinal complaints Genitourinary: Genitourinary: Reports no additional male genitourinary complaints and Reports as per HPI Musculoskeletal: Musculoskeletal: Reports no additional musculoskeletal complaints and Reports as per HPI Integumentary/Breasts: Skin/Breast: Reports system reviewed and no additional complaints, except as docu and Reports as per HPI Neurologic: Reports system reviewed and no additional complaints, except as documented and Reports as per HPI Psychiatric: Psychiatric: Reports no additional psychiatric complaints and Reports as per HPI Endocrine: Endocrine: Reports no additional endocrine complaints and Reports as per HPI Hematologic/Lymphatic: Hematologic/Lymphatic: Reports no additional hematologic/lymphatic complaints and Reports as per HPI Allergic/Immunologic: Allergic/Immunologic: Reports no additional allergic/immunologic complaints and Reports as per HPI [facility] Past Medical History Medical History HLD (hyperlipidemia) Afib Parkinson disease Surgical History Surgical History Hx of cataract surgery History of hip surgery History of ankle surgery History of heart surgery Family History Family History Other Cerebrovascular accident Family history of arthritis Hypertension Social History Social History Smoking status: Never smoker Alcohol intake: current Alcohol use details: Social - 1-2 drinks per month Substance use: never Substance use type: does not use Do You Feel Safe in your Home?: Yes Lack of Transportation: No Lack of Food: Never True Current Housing: I Have Housing Concerned About Future Housing: No Difficulty Paying Gas/Electric Bills: No Difficulty Paying for Meds: No Currently Unemployed: No Education: High School Diploma/GED Difficulty w/ Childcare or Family Care: No Spiritual care concerns: No Exam Narrative: Vitals are stable Const: General: no acute distress Orientation/consciousness: patient oriented x3 Limitations: no limitations HENMT: Head: normal to inspection Ears: external ears normal Face/Nose/Sinus: Normal external nose present Face and sinus: normal facial exam Mouth: Yes Normal oral and palatal mucosa present Throat: posterior oropharynx normal Eyes: Conjunctivae: conjunctivae normal Pupils: Equal, round and reactive pupils present EOM: EOMs intact bilaterally Direct Ophthalmoscopy: no photophobia Neck: Neck: normal visual inspection, no lymphadenopathy and no meningeal signs Chest: Chest palpation & inspection: normal inspection of the chest Resp: Effort & Inspection: normal respiratory effort Auscultation: clear to auscultation bilaterally Cardio: Rate: regular rate Rhythm: regular rhythm GI: GI Palp: Yes Soft to palpation Auscultation: normal bowel sounds : General: Yes no CVA tenderness Back/Spine/Pelvis: Back: no CVA tenderness Skin: General skin exam: normal color Rashes: no rashes Wounds: no wounds Neuro: General: patient oriented x3, moves all extremities, no meningeal signs, no focal motor deficits and CN's II-XI intact bilaterally Cranial nerves: Yes Nystagmus not present Speech: normal speech Extrem: General: edema Psych: Mental Status: mental status grossly normal Affect: normal affect Attitude: cooperative Course Course Emergency Course: generalized weakness/ chronic anemia-- no focal neuro deficits. CT of the head did not show any acute findings. shortness of breath-- patient's oxygenation has remained more than 98% on room air with a respiratory rate of 16 to 18. Chest x-ray revealed chronic left pleural thickening/ atelectasis/scarring. BNP is noted to be 469 which is less than prior reading of 873. Vital Signs Vital signs: Vital Signs Pulse Rate 68 10/01/24 10:20 Temperature 36.8 C 10/01/24 10:21 Pulse Rate 66 10/01/24 11:45 Respiratory Rate 16 10/01/24 11:45 Blood Pressure 104/58 L 10/01/24 11:15 Pulse Oximetry 99 10/01/24 11:45 Oxygen Delivery Room Air 10/01/24 11:45 MDM - Weakness MDM Narrative Medical decision making narrative: Generalized weakness compensated CHF chronic anemia Differential Diagnosis Differential diagnosis: Likely acute myocardial infarction and anemia Medical Records Attestation: I reviewed the patient's medical records. Lab Data Attestation: I reviewed the patient's lab results. 10/01/24 10:44 10/01/24 10:44 Labs: Lab Results 10/01/24 10/01/24 Range/Units 10:37 10:44 WBC 4.8 (4.8-10.8) K/mm3 RBC 3.05 L (4.70-6.10) M/mm3 Hgb 9.3 L (12.4-15.3) g/dL Hct 30.0 L (37.0-46.0) % MCV 98.4 (78.0-102.0) fL MCH 30.5 (27.0-31.0) pg MCHC 31.0 L (32-36) g/dL RDW 13.8 (11.6-14.4) % Plt Count 185 (150-420) K/mm3 MPV 8.2 L (8.7-11.0) fl Immature Gran % (Auto) 0.4 H (0.0-0.0) % Neut % (Auto) 61.2 (50.0-70.0) % Lymph % (Auto) 25.4 (18.0-42.0) % [place] % (Auto) 7.9 (2.0-11.0) % Eos % (Auto) 3.8 (1.0-6.0) % Baso % (Auto) 1.3 H (0.0-1.0) % Lymph # (Auto) 1.22 (1.10-4.50) K/mm3 [place] # (Auto) 0.38 (0.10-0.90) K/mm3 Eos # (Auto) 0.18 (0.02-0.50) K/mm3 Baso # (Auto) 0.06 (0.00-0.10) K/mm3 Abs Immat Gran (auto) 0.02 H (0.00-0.00) K/mm3 Absolute Neuts (auto) 2.94 (1.70-7.20) K/mm3 Absolute Nucleated RBC 0.00 (0.00-0.00) K/mm3 Nucleated RBC % 0.0 (0-0.0) % Sodium 135 L (137-145) mmol/L Potassium 3.7 (3.4-5.0) mmol/L Chloride 105 (98-107) mmol/L Carbon Dioxide 26 (22-30) mmol/L Anion Gap 4 (4-12) mmol/L BUN 11 D (9-20) mg/dL Creatinine 0.70 (0.7-1.3) mg/dL Estim Creat Clear Calc 65 ml/min Estimated GFR > 60 (59 - ) Glucose 124 H (65-110) mg/dL Calculated Osmolality 280 L (285-295) mOsm/kg Lactic Acid 1.4 (0.4-2.0) mmol/L Calcium 8.2 L (8.4-10.2) mg/dL Magnesium 2.3 (1.6-2.3) mg/dL Total Bilirubin 0.4 (0.2-1.3) mg/dL AST 27 (17-59) U/L ALT 10 (6-50) U/L Alkaline Phosphatase 103 (38-126) U/L Troponin I < 0.012 (0.000-0.034) ng/mL NT-Pro-B Natriuret Pep 469 H (19.9-100) pg/mL Total Protein 6.0 L (6.3-8.2) g/dL Albumin 3.2 L (3.5-5.1) g/dL Urine Color Light yellow (Yellow) Urine Appearance Clear (Clear) Urine pH 7.0 (5.0-8.0) Ur Specific [place] 1.010 (1.010-1.020) Urine Protein Negative (Negative) Urine Glucose (UA) Negative (Negative) Urine Ketones Trace H (Negative) Ur Blood (Man) Trace-intact H (Negative) Urine Nitrate Negative (Negative) Urine Bilirubin Negative (Negative) Urine Urobilinogen 0.2 (0.2-1.0) mg/dL Leukocyte Esterase Rfl Negative (Negative) DONNIE/UL Imaging Data Attestation: I personally reviewed and interpreted this imaging study as follows: ECG Data EKG #1: Attestation: I personally reviewed and interpreted this ECG as follows: ECG completion date: 10/01/24 ECG completion time: 10:52 Interpretation: normal sinus rhythm. Left axis deviation. Right bundle-branch block pattern. Old inferior infarction. No ST elevation Discharge Plan Discharge Clinical Impression: Compensated heart failure, Weakness, Chronic anemia Patient Disposition: Home Condition: Stable Instructions: Antibiotic Form, Heart Failure (ED), Anemia (ED) Patient Language: [place] Prescriptions: No Action terazosin 10 mg capsule 10 mg PO HS Xarelto 20 mg tablet 20 mg PO DAILY pramipexole 1 mg tablet See Rx Instructions .ROUTE .COMPLEX Rx Instructions: 3 tab TID atorvastatin 20 mg tablet 40 mg PO HS levothyroxine 75 mcg tablet 75 mcg PO DAILY Lumigan 0.01 % drops 1 drp EACH EYE HS carbidopa-levodopa 25-250 mg tablet 2 tablet PO TID aspirin 81 mg Tablet,Delayed Release (Dr/Ec) 81 mg PO DAILY midodrine 5 mg Tablet 5 mg PO TID Rx Instructions: do not give last dose of day after 6PM or within 4 hrs of bedtime brimonidine-timolol 0.2-0.5 % Drops 1 drp EACH EYE BID pantoprazole [Protonix] 40 mg Tablet,Delayed Release (Dr/Ec) 40 mg PO QAM Qty: 60 0RF ferrous sulfate 325 mg (65 mg iron) tablet 325 mg PO DAILY multivitamin Tablet 1 tablet PO DAILY polyethylene glycol 3350 [Miralax] 17 gram powder in packet 17 g PO DAILY PreserVision AREDS 2,148 mcg-113 mg-45 mg-17.4mg tablet 2 tablet PO BID Rx Instructions: administer with AM and PM meals carbidopa-levodopa 25-100 mg tablet 1.5 tablet PO TID furosemide 40 mg tablet 40 mg PO QAM cinnamon bark [Cinnamon] 500 mg capsule 500 mg PO DAILY potassium chloride 10 mEq tablet extended release 10 meq PO DAILY Follow-up/Referrals: Leticia Handley MD [Primary Care Provider] - Time of Disposition: 12:16
--- OUTSIDE RECORDS SUMMARY | 2024-10-01 10:22 | XMS_ITS | Clinical Summary ---
Author Organization [facility] [address] Address [address] [place] [address] Care Team Providers Care Hvac Specialist Name Role Phone Leticia Handley MD Primary Care Provider [phone] Allergies No known active allergies Medications bimatoprost (Lumigan) 0.01 % ophthalmic drops Administer 1 drop into both eyes nightly 06/03/19 22 Active aspirin 81 mg enteric coated tablet Take 1 tablet (81 mg total) by mouth daily 30 tablet 1 06/17/19 23 2025 Active levothyroxine (SYNTHROID) 75 mcg tablet Take 1 tablet (75 mcg total) by mouth technical services specialist before breakfast 30 tablet 1 06/17/19 23 [...] a day 270 tablet 3 01/02/20 24 2024 Active pramipexole (MIRAPEX) 1 mg tablet Take [...] Active Additional Information Patient not taking.Reported on 09/23/2024 ferrous sulfate 325 mg (65 mg of [...] a day 540 tablet 3 08/14/19 25 2025 Active rivaroxaban (XARELTO) 20 mg tablet Take 1 tablet (20 mg total) by mouth daily with dinner 30 tablet 2 02/26/20 24 2024 Discontinued(T herapy completed) glycopyrrolate (ROBINUL) 1 mg tabletIndicatio ns:Sialorrhea Take 1 tablet (1 mg total) by mouth 3 (three) times a day 90 tablet 11 08/13/19 25 2024 Discontinued Hospital, Clinic, or Other Facility Administered [...] we should send an updated script to [facility] in 2-3 weeks) -start glycopyrrolate 1mg TID for sialorrhea -if ineffective consider Botox injections Assessment & Plan (03/12/2024 1:31 PM NETEZZA DEVELOPER): 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 [...] placement 11/29/2016 Coronary artery disease invo lving mentasta coronary artery of mentasta heart without angina pectoris 08/14/2016 Overview (09/29/2016): Coronary artery disease involving mentasta coronary artery of mentasta heart with other form of angina pectoris [...] Encounters Date Type Department Care Team Description 09/23/2024 3:00 PM CDT Ancillary Procedure [facility] at [address] [place] [phone] Postoperative atrial fibrillation (HCC) 09/23/2024 2:30 PM CDT Office Visit [facility] at [address] [place] [phone] Freeman Chavira MD Coronary artery disease involving mentasta coronary artery of mentasta heart without angina pectoris (Primary Dx); Chronic heart failure with preserved ejection fraction (HFpEF) (HCC); Postoperative atrial fibrillation (HCC); S/P aortic valve replacement with bioprosthetic valve; YANET on CPAP; Chronic anticoagulation 09/09/2024 11:15 AM CDT Procedure visit [facility] [address] [facility] 6th [place] [phone] Isiah Brown MD PhD Sialorrhea (Primary Dx); Parkinson's disease without dyskinesia or fluctuating manifestations (HCC) 09/09/2024 Orders Only [facility] [address] [facility] 6th [place] [address] [place] [phone] Isiah Brown MD PhD Sialorrhea 09/09/2024 Telephone [facility] [address] [facility] [address] [place] [phone] Charlette Arias, RN 09/02/2024 Telephone [facility] [address] [phone] Zelda Negron RN 08/20/2024 Orders Only [facility] [address] [place] [address] 6th [place] [address] [place] [phone] Isiah Brown MD PhD Sialorrhea (Primary Dx) 08/13/2024 Telephone [facility] [address] [place] [phone] Zelda Negron RN 08/12/2024 1:30 PM CDT Office Visit [facility] [address] [place] [phone] Isiah Brown MD PhD Parkinson's disease without dyskinesia or fluctuating manifestations (HCC) (Primary Dx); Sialorrhea from Last 3 Months Surgical History Surgery Date Site/Laterality Comments CORONARY ANGIOPLASTY WITH ST ENT PLACEMENT TOTAL HIP ARTHROPLASTY Left TOTAL ANKLE ARTHROPLASTY 05/07/2016 - 05/06/2017 Left CATARACT EXTRACTION, BILATERAL LUMBAR SPINE SURGERY CORONARY ARTERY BYPASS GRAFT 06/05/2022 CARDIAC VALVE REPLACEMENT 06/05/2022 JOINT REPLACEMENT 10/27/2010 and 03/2017 ANKLE SURGERY Mar 2017 REVISION TOTAL HIP ARTHROPLASTY October 2010 Medical History Medical History Date Comments Cardiovascular disease Coronary Artery Disease Hypertension Hypertension Adiposity Obesity Sleep apnea CPAP PA (myocardial infarction) (HCC) 2014 CAD (coronary artery disease) Parkinson's disease (HCC) Skin cancer Back Nonrheumatic aortic (valve) stenosis Type 2 diabetes mellitus (HCC) H /O CHF (congestive heart failure) (HCC) Cardiomyopathy (HCC) Chronic fatigue syndrome Arthritis Benign prostatic hyperplasia Glaucoma Heart disease Thyroid disease Anemia July 2024 Sleep apnea, obstructive Family History Medical History Relation Name Comments Stroke Father Viral Unexplained Father Viral Unexplained Mother Parkinsonism Mother's Brother Uncle Eliceo ALS Neg Hx Seizures Neg Hx Tremor Neg Hx Relation Name Status Comments Father Viral (Age 87) Mother (Age 89) Mother's Brother Uncle Eliceo Alive Social History Tobacco Use Types Packs/Day [...] relatives? Three times a week 06/06/2022 Attends [employer] Not on file 06/06 Active Member [...] place to sleep or slept in a longterm (including now)? No 06/06/2022 Personal Safety Answer Date Recorded Getting School Help Needed Denies 05/05 Sex and Gender Information Value Date Recorded Sex Assigned at Not on file Legal Sex Male 12:29 AM NETEZZA DEVELOPER Gender Identity Not on file Sexual Orientation Not on file Obstetrics History Last Filed Vital Signs Vital Sign Reading Time Taken Comments Blood Pressure 118/66 09/23/2024 1:55 PM CDT Pulse 71 09/23/2024 1:55 PM CDT Temperature 36.8 C (98.2 F) 08/12/2024 12:47 PM CDT Respiratory Rate 18 04/10/2024 2:18 PM NETEZZA DEVELOPER Oxygen Saturation 95% 09/23/2024 1:55 PM CDT Inhaled Oxygen Concentration - - Weight 80.7 kg (178 lb) 09/23/2024 1:55 PM CDT Height 165.1 cm (5' 5) 09/23/2024 1:55 PM CDT Body Mass Index 29.62 09/23/2024 1:55 PM CDT Plan of Treatment Health Maintenance [...] 09/10/2012, 06/13/2004 Medical Devices Implanted Type Area Stone Unloader Device Identifier Shelf Expiration Date Model / Serial / Lot [employer] Medical Plate Bone Low Profile 6 Hole H Shape Ti 115.102.06 - [id number] Implanted:Qty: 1 on 06/05/2022 by Nicolás Arevalo MD at [facility] Plate N/A: Sternum [employer] 115.102. 06 / / Z[employer] Medical Plate Bone Low Profile 4 Hole Box Ti 115.103.04 - [id number] Implanted:Qty: 1 on 06/05/2022 by Nicolás Arevalo MD at [facility] Plate N/A: Sternum [employer] 115.103. 04 / / [employer] Medical Plate Bone Low Profile 6 Hole O Concave Ti 115.604.06 - [id number] Implanted:Qty: 1 on 06/05/2022 by Nicolás Arevalo MD at [facility] Plate N/A: Sternum [employer] 115.604. 06 / / [employer] Von-Tim ds Perimount Magna Ease 23mm Bioprosthesis [id number] - [id number] - [id number] Implanted:Qty: 1 on 06/05/2022 by Nicolás Arevalo MD at [facility] Prosthetic Valve N/A: Heart [employer] 07/18/2024 [id number] / [id number] / Z[employer] Medical Screw Bone Slf Drl Full Thread Locking 3.5x14mm Ti 100.035.14 - [id number] Implanted:Qty: 10 on 06/05/2022 by Nicolás Arevalo MD at [facility] Screw N/A: Sternum [employer] 100.035. 14 / / [employer] Screw Bone Slf Drl Full Thread Locking 3.5x16mm Ti 100.035.16 - [id number] Implanted:Qty: 6 on 06/05/2022 by Nicolás Arevalo MD at [facility] Screw N/A: Sternum [employer] 100.035. 16 / / Procedures Procedure Name Priority Date/Time Associated Diagnosis Comments POCT LIPID PANEL Routine 08/02/2023 10:2 9 AM CDT Coronary artery disease involving mentasta coronary artery of mentasta heart without angina pectoris EGFR Routine 06/16/2022 10:03 AM NETEZZA DEVELOPER HEMOGLOBIN A1C Routine 05/30/2022 12:59 PM NETEZZA DEVELOPER Preop testing Type 2 diabetes mellitus with [...] Final Result * eGFR (06/16/2022 10:03 AM NETEZZA DEVELOPER) eGFR 67 mL/min/1. 73 m2 RYAN LUX [...] reviewed 2021. Blood 06/16/2022 10:0 3 AM NETEZZA DEVELOPER 06/16/2022 10:03 AM NETEZZA DEVELOPER Nicolás Arevalo MD LAB BLOOD ORDERABLES Final Res ult Performing Organization Address [facility] de Phone Number RYAN [phone] [place] [address] * Hemoglobin A1c (05/30/2022 12:59 PM NETEZZA DEVELOPER) Hgb A1C 5.5 4.0 - 5.6 % RYAN Estimated Average Glucose 111 mg/dL RYAN LUX Comment: The ADA recommends reporting an estimated Average Glucose (eAG) with all Hemoglobin A1c results using the equation derived from a study of 507 normal and diabetic adults. Minority populations were underrepresented and children were not included. (Diabetes Care 31:7349-4897, 2008). The eAG is not equivalent to a fasting glucose. Blood 05/30/2022 12:5 9 PM NETEZZA DEVELOPER 05/30/2022 1:03 PM NETEZZA DEVELOPER Nicolás Arevalo MD LAB BLOOD ORDERABLES Final Res ult Performing Organization Address [facility] de Phone Number RYAN [phone] [address] [facility] [place] [address] from Last 3 Months or Most Recently Relevant to Health Maintenance Insurance [facility]IC[facility] MEDICARE SUPPLEMENT INSURANCE MEDICARE [facility] [place]IC[place] [address] [facility] MEDICARE SUPPLEMENT Advance Directives For more information, please contact: [phone] * Full Code (Latest Code Status on File) Date Activated Date Inactivated Comments 06/05/2022 2:49 PM 06/16/2022 5:28 PM Care Teams Hvac Specialist Relationship Specialty Start Date End Date Leticia Handley MD [address] [place] [address] PCP - General Internal Medicine 05/08/23
--- OUTSIDE RECORDS SUMMARY | 2024-10-01 10:22 | XMS_ITS ---
Author Organization [facility] Address [address] [place], [place] [id number] Care Team Providers Care Adult Education Professional Name Role Phone ANASTASIIA ORNELAS Unavailable [phone] Estela Handley Unavailable Unavailable OPAL ROBISON Unavailable [phone] REASON FOR VISIT *General care Medications Medication SIG (Take, Route, Frequency, Duration) Notes Start Date End Date Status Aspirin 81 MG 1 tablet Orally Once a day Active Vital Signs Weight 200 lbs 09/25/2024 Weight-kg 90.72 kg 09/25/2024 Height 66.00 in 09/25/2024 Height-cm 167.64 cm 09/25/2024 BMI 32.28 kg/m2 09/25/2024 Encounters Encounter Location Date Provider Diagnosis [address] [id number] 09/25/2024 OPAL ROBISON Tinea unguium B35.1 ; Pain in right foot M79.671 ; Pain in left foot M79.672 ; Atherosclerosis of [place] arteries of extremities with intermittent claudication, bilateral [...] foot (ICD-10 - M79.672) 09/25/2024 Atherosclerosis of [place] arteries of extremities with intermittent claudication, bilateral [...] sooner if problems develop. Provider Name:OPAL GUZMAN, 12/04/2024 02:30:00 PM, [address] [place] [address], [phone], Progress Notes * KATIE CRUZDOB:1940 (83 yo M)Acc No.[id number]:09/25/2024 Patient: KATIE HOGAN Provider: Royer ROBISON :1940 A ge:83 Y S ex:Male Date:09/25/2024 Address: [place] [address] Subjective: * Chief Complaints: * 1 . [...] Patient denies c hest pain, history of CA, irregular heartbeat. M usculoskeletal: Patient complains of [...] - M79.672 4 . 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
--- OUTSIDE RECORDS SUMMARY | 2024-10-01 10:22 | XMS_ITS ---
Author Organization [facility] Address [address] [place], [place] [address] Care Team Providers Care Granulator Machine Operator Name Role Phone ANASTASIIA ORNELAS Unavailable [phone] Estela Handley Unavailable Unavailable REASON FOR VISIT Patient presents for at-risk foot care . The patient has painful toenails and calluses that are causing difficulty with ambulation and shoegear. The onset is gradual Encounters Encounter Location Date Provider Diagnosis [address] [id number] 07/24/2024 ANASTASIIA ORNELAS Tinea unguium B35.1 ; Pain in right foot M79.671 ; Pain in left foot M79.672 ; Atherosclerosis of [place] arteries of extremities with intermittent claudication, bilateral [...] foot (ICD-10 - M79.672) 07/24/2024 Atherosclerosis of [place] arteries of extremities with intermittent claudication, bilateral [...] develop. Provider Name:OPAL GUZMAN, 12/04/2024 02:30:00 PM, [address] [place] [address], [id number], Progress Notes * KATIE CRUZDOB:1940 (83 yo M)Acc No.[id number]:07/24/2024 Patient: KATIE HOGAN Provider: Whitney Ornelas DPM :1940 A ge:83 Y S ex:Male Date:07/24/2024 Address:[address] [address] Subjective: * Chief Complaints: * 1 . [...] seen by Dr. Handley was 06/2024., Initials [facility]. * Medical History: Objective: * Vitals: [...] - M79.672 4 . A therosclerosis of [place]isp[place] arteries of extremities with intermittent claudication, bilateral [...] 1055 TRIM SKIN LESION, Modifiers: Q8 , 11623 DEBRIDE NAIL, 6 OR MORE, Modifiers: 59 , Q8 * Follow Up: 1 0 - 12 weeks (Reason: At-Risk Foot care, sooner if problems develop.) * Billing Information: * Visit Code: * Procedure Codes: 34950 TRIM SKIN LESION. Modifiers: Q8 22535 DEBRIDE NAIL, 6 OR MORE. Modifiers: 59, Q8 * Electronic signature of ANASTASIIA ORNELAS DPM on 10/01/2024 at 10:21 AM CDT Sign off status: Pending * Provider: Whitney Ornelas DPM Date: 0 07/24/2024 Generated for Joseph jang/Triny/Danielitting on: 0 10/01/2024 10:21 AM CDT History [...]
--- OUTSIDE RECORDS SUMMARY | 2024-10-01 10:22 | XMS_ITS | Patient Health Record ---
Author Organization [facility] Address [address] [place], [place] [address] Care Team Providers Care Seed Cone Picker Name Role Phone AURA ANASTASIIA Unavailable [phone] Estela Handley Unavailable Unavailable ILEANADANNY CARLOS Unavailable [phone] OPAL ROBISON Unavailable [phone] Allergies No Known Allergies Reason For Referral No Information Medications Medication SIG (Take, Route, Frequency, Duration) Notes Start Date End Date Status Aspirin 81 MG 1 tablet Orally Once a day Active Immunizations Vaccine Route Administration Date Status Comme nts Influenza, high dose seasonal Unknown 02/12/2023 Admini stered Vital Signs Height-cm 167.64 cm 09/25/2024 Weight-kg 90.72 kg 09/25/2024 Height 66.00 in 09/25/2024 Weight 200 lbs 09/25/2024 BMI 32.28 kg/m2 09/25/2024 Encounters Encounter Location Date Provider Diagnosis [address] [id number] 07/24/2024 ANASTASIIA ORNELAS Tinea unguium B35.1 ; Pain in right foot M79.671 ; Pain in left foot M79.672 ; Atherosclerosis of gamb[place] arteries of extremities with intermittent claudication, bilateral legs I70.213 and Acquired keratosis [keratoderma] palmaris et plantaris L85.[address] [id number] 09/25/2024 OPAL ROBISON Tinea unguium B35.1 ; Pain in right foot M79.671 ; Pain in left foot M79.672 ; Atherosclerosis of gambell arteries of extremities with intermittent claudication, bilateral legs I70.213 and Acquired keratosis [keratoderma] palmaris et plantaris L85.[address] [id number] 11/29/2023 CARLOS STEVE Other hammer toe(s) (acquired), right foot M20.41 ; Tinea unguium B35.1 ; Other hammer toe(s) (acquired), left foot M20.42 ; Pain in right toe(s) M79.674 ; Pain in left toe(s) M79.675 ; Pain in right foot M79.671 ; Pain in left foot M79.672 ; 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gambell arteries of extremities, bilateral legs I70.203 and Acquired keratosis [keratoderma] palmaris et plantaris L85.[address] [id number] 01/31/2024 CARLOS STEVE Other hammer toe(s) (acquired), right foot M20.41 ; Tinea unguium B35.1 ; Other hammer toe(s) (acquired), left foot M20.42 ; Pain in right toe(s) M79.674 ; Pain in left toe(s) M79.675 ; Pain in right foot M79.671 ; Pain in left foot M79.672 ; 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gambell arteries of extremities, bilateral legs I70.203 and Acquired keratosis [keratoderma] palmaris et plantaris L85.[address] [id number] 04/10/2024 CARLOS STEVE Other hammer toe(s) (acquired), right foot M20.41 ; Tinea unguium B35.1 ; Other hammer toe(s) (acquired), left foot M20.42 ; Pain in right toe(s) M79.674 ; Pain in left toe(s) M79.675 ; Pain in right foot M79.671 ; Pain in left foot M79.672 ; 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gambell arteries of extremities, bilateral legs I70.203 and Acquired keratosis [keratoderma] palmaris et plantaris L85.[address] [place] [id number] 05/22/2024 ANASTASIIA ORNELAS Tinea unguium B35.1 ; Pain in right foot M79.671 ; Pain in left foot M79.672 ; Atherosclerosis of gambell arteries of extremities with intermittent claudication, bilateral legs I70.213 and Acquired keratosis [keratoderma] palmaris et plantaris L85.1 Assessments Encounter Date Diagnosis (ICD Code) Assessment Notes Treatment Notes Treatment Clinical Notes Section Notes 11/29/2023 Tinea unguium (ICD-10 - B35.1) Aseptic [...] in right foot (ICD-10 - M79.671) 09/25/2024 Tinea unguium (ICD-10 - B35.1) Nails 1-5 Bilateral were debrided extensively with nail nippers and emery board, reducing length and girth to pink healthy tissue with any subungual debris and necrotic tissue removed 09/25/2024 Pain in right foot (ICD-10 - M79.671) 09/25/2024 Pain in left foot (ICD-10 - M79.672) 07/24/2024 Pain in left foot (ICD-10 - M79.672) 05/22/2024 Pain in left foot (ICD-10 - M79.672) 04/10/2024 Other hammer toe(s) (acquired), left foot (ICD-10 - M20.42) 01/31/2024 Other hammer toe(s) (acquired), left foot (ICD-10 - M20.42) 11/29/2023 Other hammer toe(s) (acquired), left foot (ICD-10 - M20.42) 11/29/2023 Pain in right toe(s) (ICD-10 - M79.674) 01/31/2024 Pain in right toe(s) (ICD-10 - M79.674) 07/24/2024 Atherosclerosis of gambell arteries of extremities with intermittent claudication, bilateral legs (ICD-10 - I70.213) 05/22/2024 Atherosclerosis of gambell arteries of extremities with intermittent claudication, bilateral legs (ICD-10 - I70.213) 04/10/2024 Pain in right toe(s) (ICD-10 - M79.674) 09/25/2024 Atherosclerosis of gambell arteries of extremities with intermittent claudication, bilateral legs (ICD-10 - I70.213) 09/25/2024 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.1) A total of 2 corns or calluses, as described in the note above, were cut and pared utilizing a #15 blade 04/10/2024 Pain in left toe(s) (ICD-10 - [...] toe(s) (ICD-10 - M79.675) 11/29/2023 Pain in right foot (ICD-10 - M79.671) 01/31/2024 Pain in right foot (ICD-10 - M79.671) 04/10/2024 Pain in right foot (ICD-10 - M79.671) 04/10/2024 Pain in left foot (ICD-10 - M79.672) 01/31/2024 Pain in left foot (ICD-10 - M79.672) 11/29/2023 Pain in left foot (ICD-10 - M79.672) 11/29/2023 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gambell arteries of extremities, bilateral legs (ICD-10 - I70.203) Patient educated on risks and aggravating factors of PVD, including conservative treatment options such as a diet and exercise regimen to aid in slowing progression of vascular disease 01/31/2024 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gambell arteries of extremities, bilateral legs (ICD-10 - I70.203) Patient educated on risks and aggravating factors of PVD, including conservative treatment options such as a diet and exercise regimen to aid in slowing progression of vascular disease 04/10/2024 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gambell arteries of extremities, bilateral legs (ICD-10 - [...] Treatment Next Appt Details Provider Name:OPAL GUZMAN, 12/04/2024 02:30:00 PM, [address] [place] [address], [id number], Insurance Providers Payer Name Payer Address Payer Phone Subscriber Number Group Number Insured Name Patient Relationship to Insured Coverage Start Date Coverage End Date Medicare Part B [place] [address] [place] [id number] KATIE CRUZ Self - patient is the insured [facility] ([facility]) ATTN CLAIMS [address] [place] [address] [id number] KATIE CRUZ Self - patient is the insured 4 Medical (General) History Surgical History Surgery Date(Month/Year) Total ankle replacement 2014
--- OUTSIDE RECORDS SUMMARY | 2024-10-01 10:22 | XMS_ITS | Clinical Summary ---
Author Organization [facility] Address [address] [place] [address] Care Team Providers Care Metalworking Specialist Name Role Phone Leticia Handley MD Primary Care Provider [phone] Nilesh Mojica DO Unavailable [phone] Enoc Sheridan PA-C Unavailable [phone] Source Comments [facility],non-owned Affiliates and Associated Physician Practices is amultiple site organization consisting of ambulatory clinics and hospital sitesin [place], [place], [place] and [place]. This disclosure is being madepursuant to the Care Everywhere program and may not contain all information available regarding this patient. Last updated 18.[facility] [employer] Allergies No known active allergies Medications * [...] 7:04 AM CDT Height 167.6 cm (5' 6) 01/16/2017 2:41 PM CDT Body Mass Index 30.83 01/16/2017 2:41 PM CDT Plan of Treatment Upcoming Encounters Date Type Department Care Team (Late st Contact Info) Description 03/09/2025 10:40 AM SPIN TABLE OPERATOR Office Visit [facility] [address], [address] [address] Nilesh Mojica DO [address] [address] Health Maintenance Due Date Last [...] this topic Medical Devices Implanted Type Area Public Relations Coordinator Device Identifier Shelf Expiration Date Model / Serial / Lot Stem Tlr Inbone Ii 1 Lg 10mm Ankl Implanted:Qty : 1 on 03/08/2017 by Nilesh Mojica DO at [facility] Left: Ankle SEA 12/07/2023 [id number] / / [id number] 4 Long Tibial Tray Implanted:Qty : 1 on 03/08/2017 by Nilesh Mojica DO at [facility] Left: Ankle SEA 01/09/2025 [id number] / / [id number] Cmpnt Tlr Inbone 3 Dome Ankl Sulcus Implanted:Qty : 1 on 03/08/2017 by Nilesh Mojica DO at [facility] Left: Ankle SEA 12/09/2024 [id number] / / [id number] Infinity Poly Insert Implanted:Qty : 1 on 03/08/2017 by Nilesh Mojica DO at [facility] Left: Ankle SEA 10/22/2024 [id number] / / [id number] Screw Qckfix Kyler Canc 4.0 X 46 Implanted:Qty : 1 on 03/08/2017 by Nilesh Mojica DO at [facility] Left: Ankle [employer] [id number] / / Plate 61mm 3 Hl Hk Lck Ss Ft/Ankl Mdl Implanted:Qty : 1 on 03/08/2017 by Nilesh Mojica DO at [facility] Left: Ankle [employer] [id number] / / Screw 3.5mm 38mm T15 Hexalobe Ft Ankl Implanted:Qty : 1 on 03/08/2017 by Nilesh Mojica DO at [facility] Left: Ankle [employer] AR-8835-38 / / Graft Bone Othblst Ii Dbm Canc 1cc Alg - [id number] Implanted:Qty : 1 on 03/08/2017 by Nilesh Mojica DO at [facility] Left: Ankle [employer] 01/01/2019 / [id number] / [id number] Explanted Type Area Public Relations Coordinator Device Identifier Shelf Expiration Date Model / Serial / Lot Jonathan Total Ank Replacement Explanted:Qty: 1 on 03/08/2017 at [facility] Left: Ankle [employer] TOTAL ANKLE REPL MORE / / Screw Qckfix Kyler Canc 4.0 X 46 Explanted:Qty: 1 on 03/08/2017 by Nilesh Mojica DO at [facility] Left: Ankle [employer] AR-[id number] PTS / / Insurance MEDICARE MEDICARE SUPPLEMENT PAYOR [facility] Advance Directives Documents on File Type Date Recorded 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
--- OUTSIDE RECORDS SUMMARY | 2024-10-01 10:22 | XMS_ITS | Encounter Summary ---
Author Organization [facility] Address [address] [place] [address] Care Team Providers Care Diet Clerk Name Role Phone Leticia Handley MD Primary Care Provider Nilesh Mojica DO Unavailable [phone] Enoc Sheridan PA-C Unavailable [phone] Encounter Details Date Type Department Care Team (Late st Contact Info) Description 12/06/2016 [facility] Outpatient Visit [facility] Orthopedics - Radiology [address] [place] [address] Nilesh Mojica [facility] Medical [address] [address] Social History Tobacco Use Types [...] st Contact Info) Description 03/09/2025 10:40 AM LIVESTOCK NUTRITION TERRITORY MANAGER Office Visit [facility] [address], [address] [address] Nilesh Mojica [address] [address] documented as of this encounter Visit Diagnoses Not on filedocumented in this encounter Care Teams Diet Clerk Relationship Specialty Start Date End Date Leticia Handley MD PCP - General Internal Medicine 12/06/16 Nilesh Mojica DO Orthopedic Surgery 12/06/16 Enoc Sheridan PA-C [address] [place] [address] Physician Kitchenhand Physician Kitchenhand 03/13/17 documented as of this encounter
--- OUTSIDE RECORDS SUMMARY | 2024-10-01 10:22 | XMS_ITS | Encounter Summary ---
Author Organization [facility] Address [address] [place] [address] Care Team Providers Care Pearl Hand Name Role Phone Leticia Handley MD Primary Care Provider [phone] Karrie Mcgregor DO Primary Care Provide r Leticia Handley MD Primary Care Provider [phone] Encounter Details Date Type Department Care Team (Late st Contact Info) Description 08/15/2016 Orders Only [facility] ProviderNila MD [address] [place] [address] Social History Tobacco Use Types Packs/Day Years Used Date Smoking Tobacco: Never Alcohol Use Standard Drinks/Week Comments Yes 0 (1 standard drink = 0.6 oz pur e alcohol) Sex and Gender Information Value Date Recorded Sex Assigned at Not on file Legal Sex Male 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
--- OUTSIDE RECORDS SUMMARY | 2024-10-01 10:22 | XMS_ITS | Encounter Summary ---
Author Organization [facility] Address [address] [place] [address] Care Team Providers Care Configuration Management Analyst Name Role Phone Leticia Handley MD Primary Care Provider [phone] Karrie Mcgregor DO Primary Care Provide r Leticia Handley MD Primary Care Provider + [phone] Encounter Details Date Type Department Care Team (Late st Contact Info) Description 04/22/2019 Telephone [facility] Radiology [address] [place] [address] Steff Shah, RT Social History Tobacco Use Types Packs/Day Years Used Date Smoking Tobacco: Never Smokeless Tobacco: Never Alcohol Use Standard Drinks/Week Comments Yes 0 (1 standard drink = 0.6 oz pur e alcohol) Sex and Gender Information Value Date Recorded Sex Assigned at Not on file Legal Sex Male 12:29 AM EXHAUST EQUIPMENT OPERATOR Gender Identity Not on file Sexual Orientation Not on file documented as of this encounter Plan of Treatment Not on file documented as of this encounter Visit Diagnoses Not on filedocumented in this encounter Care Teams Configuration Management Analyst Relationship Specialty Start Date End Date Leticia Handley MD [address] [place] [address] PCP - General 08/11/16 03/21/23 Karrie Mcgregor DO [address] [place] [address] PCP - General Psychiatry 03/22/23 05/07/23 Leticia Handley MD [address] [place] [address] PCP - General Internal Medicine 05/08/23 documented as of this encounter
--- OUTSIDE RECORDS SUMMARY | 2024-10-01 10:22 | XMS_ITS | Referral Summary ---
Author Organization [facility] [address] Address [address] [place] [address] Care Team Providers Care Judicial Law Clerk Name Role Phone Leticia Handley MD Primary Care Provider Encounters Date Type Department Care Team Description 09/23/2024 3:00 PM CDT Ancillary Procedure [facility] Cardiology at [address] [place] [address] Postoperative atrial fibrillation (HCC) 09/23/2024 2:30 PM CDT Office Visit [facility] Cardiology at [address] [place] [address] Freeman Chavira MD Coronary artery disease involving ekuk coronary artery of ekuk heart without angina pectoris (Primary Dx); Chronic heart failure with preserved ejection fraction (HFpEF) (HCC); Postoperative atrial fibrillation (HCC); S/P aortic valve replacement with bioprosthetic valve; YANET on CPAP; Chronic anticoagulation 09/09/2024 Orders Only [facility] Advanced Medicine 6th [place] [address] [place] [address] Isiah Brown MD PhD Sialorrhea 09/09/2024 Telephone [facility] [address] [facility] Medicine 7th [place] [address] Charlette Arias RN 09/09/2024 11:15 AM CDT Procedure visit [facility] [address] [place] [address] 6th [place] [address] Isiah Brown MD PhD Sialorrhea (Primary Dx); Parkinson's disease without dyskinesia or fluctuating manifestations (HCC) 09/02/2024 Telephone [facility] [address] [place] [phone] Zelda Negron RN 08/20/2024 Orders Only [facility] [address] [place] [address] [place] [address] Isiah Brown MD PhD Sialorrhea (Primary Dx) 08/13/2024 Telephone [facility] [address] [place] [phone] Zelda Negron RN 08/12/2024 1:30 PM CDT Office Visit [facility] [address] [place] [phone] Isiah Borwn MD PhD Parkinson's disease without dyskinesia or fluctuating manifestations (HCC) (Primary Dx); Sialorrhea from Last 3 Months Allergies No known active allergies Medications bimatoprost (Lumigan) 0.01 % ophthalmic drops Administer 1 drop into both eyes nightly 06/03/19 22 Active aspirin 81 mg enteric coated tablet Take 1 tablet (81 mg total) by mouth daily 30 tablet 1 06/17/19 23 2025 Active levothyroxine (SYNTHROID) 75 mcg tablet Take 1 tablet (75 mcg total) by mouth early childhood assistant before breakfast 30 tablet 1 06/17/19 23 [...] we should send an updated script to [facility] in 2-3 weeks) -start glycopyrrolate 1mg TID for sialorrhea -if ineffective consider Botox injections Assessment & Plan (03/12/2024 1:31 PM SILK SCREEN PRINTER): 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 [...] placement 11/29/2016 Coronary artery disease invo lving ekuk coronary artery of ekuk heart without angina pectoris 08/14/2016 Overview (09/29/2016): Coronary artery disease involving ekuk coronary artery of ekuk heart with other form of angina pectoris [...] relatives? Three times a week 06/06/2022 Attends Buddhism Services Not on file 06/06 Active Member [...] place to sleep or slept in a snf (including now)? No 06/06/2022 Personal Safety Answer Date Recorded Getting School Help Needed Denies 05/05 Sex and Gender Information Value Date Recorded Sex Assigned at Not on file Legal Sex Male 12:29 AM SILK SCREEN PRINTER Gender Identity Not on file Sexual Orientation Not on file Last Filed Vital Signs Vital Sign Reading Time Taken Comments Blood Pressure 118/66 09/23/2024 1:55 PM CDT Pulse 71 09/23/2024 1:55 PM CDT Temperature 36.8 C (98.2 F) 08/12/2024 12:47 PM CDT Respiratory Rate 18 04/10/2024 2:18 PM SILK SCREEN PRINTER Oxygen Saturation 95% 09/23/2024 1:55 PM CDT Inhaled Oxygen Concentration - - Weight 80.7 kg (178 lb) 09/23/2024 1:55 PM CDT Height 165.1 cm (5' 5) 09/23/2024 1:55 PM CDT Body Mass Index 29.62 09/23/2024 1:55 PM CDT Plan of Treatment Not on file Medical Devices Implanted Type Area Offender Job Retention Specialist Device Identifier Shelf Expiration Date Model / Serial / Lot Ziggy Medical Plate Bone Low Profile 6 Hole H Shape Ti 115.102.06 - [id number] Implanted:Qty: 1 on 06/05/2022 by Nicolás Arevalo MD at [facility] Plate N/A: Sternum [employer] 115.102. 06 / / Ziggy Medical Plate Bone Low Profile 4 Hole Box Ti 115.103.04 - [id number] Implanted:Qty: 1 on 06/05/2022 by Nicolás Arevalo MD at [facility] Plate N/A: Sternum [employer] 115.103. 04 / / Ziggy Medical Plate Bone Low Profile 6 Hole O Concave Ti 115.604.06 - [id number] Implanted:Qty: 1 on 06/05/2022 by Nicolás Arevalo MD at [facility] Plate N/A: Sternum [employer] 115.604. 06 / / Bhatti [employer]iences Priscila ds Perimount Magna Ease 23mm Bioprosthesis [id number] - [id number] - [id number] Implanted:Qty: 1 on 06/05/2022 by Nicolás Arevalo MD at [facility] Prosthetic Valve N/A: Heart [employer] 07/18/2024 [id number] / [id number] / Ziggy Medical Screw Bone Slf Drl Full Thread Locking 3.5x14mm Ti 100.035.14 - [id number] Implanted:Qty: 10 on 06/05/2022 by Nicolás Arevalo MD at [facility] Screw N/A: Sternum [employer] 100.035. 14 / / Ziggy Medical Screw Bone Slf Drl Full Thread Locking 3.5x16mm Ti 100.035.16 - [id number] Implanted:Qty: 6 on 06/05/2022 by Nicolás Arevalo MD at [facility] Screw N/A: Sternum [employer] 100.035. 16 / / Procedures Procedure Name Priority Date/Time Associated Diagnosis Comments POCT LIPID PANEL Routine 08/02/2023 10:2 9 AM CDT Coronary artery disease involving ekuk coronary artery of ekuk heart without angina pectoris EGFR Routine 06/16/2022 10:03 AM SILK SCREEN PRINTER HEMOGLOBIN A1C Routine 05/30/2022 12:59 PM SILK SCREEN PRINTER Preop testing Type 2 diabetes mellitus with [...] Final Result * eGFR (06/16/2022 10:03 AM SILK SCREEN PRINTER) eGFR 67 mL/min/1. 73 m2 RYAN LUX [...] reviewed 2021. Blood 06/16/2022 10:0 3 AM SILK SCREEN PRINTER 06/16/2022 10:03 AM SILK SCREEN PRINTER Nicolás Arevalo MD LAB BLOOD ORDERABLES Final Res ult Performing Organization Address [facility] de Phone Number RYAN [address] [place] [address] * Hemoglobin A1c (05/30/2022 12:59 PM SILK SCREEN PRINTER) Hgb A1C 5.5 4.0 - 5.6 % RYAN Estimated Average Glucose 111 mg/dL RYAN LUX Comment: The ADA recommends reporting an estimated Average Glucose (eAG) with all Hemoglobin A1c results using the equation derived from a study of 507 normal and diabetic adults. Minority populations were underrepresented and children were not included. (Diabetes Care 31:4732-0187, 2008). The eAG is not equivalent to a fasting glucose. Blood 05/30/2022 12:5 9 PM SILK SCREEN PRINTER 05/30/2022 1:03 PM SILK SCREEN PRINTER Nicolás Arevalo MD LAB BLOOD ORDERABLES Final Res ult Performing Organization Address [facility] Co de Phone Number RYAN [address] [address] [facility] [address] from Last 3 Months or Most Recently Relevant to Health Maintenance Insurance MEDICARE [facility] [place]IC[place] [address] [id number] MEDICARE [facility] [place] [address] [place] [id number] MEDICARE [facility] MEDICARE SUPPLEMENT Advance Directives For more information, please contact: [phone] * Full Code (Latest Code Status on File) Date Activated Date Inactivated Comments 06/05/2022 2:49 PM 06/16/2022 5:28 PM Care Teams Judicial Law Clerk Relationship Specialty Start Date End Date Leticia Handley MD [address] [place] [address] PCP - General Internal Medicine 05/08/23
--- NOTE | 2024-10-01 10:35 | ECG_ITS ---
Test Date: 2024-10-01 10:52:06 Measurements Intervals [place] Rate: 66 P: 41 DE: 231 QRS: -61 QRSD: 153 T: 19 QT: 443 QTc: 465 Interpretive Statements SINUS RHYTHM WITH FIRST DEGREE AV BLOCK RIGHT BUNDLE BRANCH BLOCK [120+ ms QRS DURATION, UPRIGHT V1, 40+ ms S IN I/aVL/V4/V5/V6] INFERIOR MYOCARDIAL INFARCTION , PROBABLY OLD [40+ ms Q WAVE AND/OR ST/T ABNORMALITY IN II/aVF] Compared to ECG 03/22/2024 09:29:23 Myocardial infarct finding now present Left-axis deviation no longer present Electronically Signed On 10-02-2024 15:02:36 CDT by Navarro Montemayor M.D.
[2024-10-01 10:50] LABS: Basophils Absolute Auto 0.06 K/mm3 (0.00-0.10); Basophils Percent Auto 1.3 % (0.0-1.0); Eosinophils Absolute Auto 0.18 K/mm3 (0.02-0.50); Eosinophils Percent Auto 3.8 % (1.0-6.0); Hemoglobin 9.3 g/dL (12.4-15.3); Immature Granulocyte Absolute 0.02 K/mm3 (0.00-0.00); Immature Granulocyte Percent A 0.4 % (0.0-0.0); Lymphocytes Absolute Auto 1.22 K/mm3 (1.10-4.50); Lymphocytes Percent Auto 25.4 % (18.0-42.0); Mean Corpuscular Hemoglobin 30.5 pg (27.0-31.0); Mean Corpuscular Volume 98.4 fL (78.0-102.0); Mean Platelet Volume 8.2 fl (8.7-11.0); Monocytes Absolute Auto 0.38 K/mm3 (0.10-0.90); Monocytes Percent Auto 7.9 % (2.0-11.0); Neutrophils Absolute Auto 2.94 K/mm3 (1.70-7.20); Neutrophils Percent Auto 61.2 % (50.0-70.0); Platelet Count Result 185 K/mm3 (150-420); Red Blood Count 3.05 M/mm3 (4.70-6.10); Red Cell Distribution Width 13.8 % (11.6-14.4); White Blood Count 4.8 K/mm3 (4.8-10.8)
[2024-10-01 11:02] LABS: Lactic Acid Reflex 1.4 mmol/L (0.4-2.0)
--- OUTSIDE RECORDS SUMMARY | 2024-10-01 11:02 | XMS_ITS | Clinical Summary ---
Author Organization [facility] Address [address] [place] [address] Care Team Providers Care Winchman/Crane Operator Name Role Phone Leticia Handley MD Primary Care Provider Nilesh Mojica DO Unavailable [phone] Enoc Sheridan PA-C Unavailable [phone] Source Comments [facility],non-owned Affiliates and Associated Physician Practices is amultiple site organization consisting of ambulatory clinics and hospital sitesin [place], [place], [place] and [place]. This disclosure is being madepursuant to the Care Everywhere program and may not contain all information available regarding this patient. Last updated 18.[facility] [employer] Allergies No known active allergies Medications * [...] st Contact Info) Description 03/09/2025 10:40 AM AIRCRAFT CLEANING SUPERVISOR Office Visit [facility] Health Orthopedics [address], [address] [address] Nilesh Mojica DO [address] [address] Health Maintenance Due Date Last [...] this topic Medical Devices Implanted Type Area Quality Assurance Auditor Device Identifier Shelf Expiration Date Model / Serial / Lot Stem Tlr Inbone Ii 1 Lg 10mm Ankl Implanted:Qty : 1 on 03/08/2017 by Nilesh Mojica DO at [facility] Left: Ankle [employer] 12/07/2023 [id number] / / [id number] 4 Long Tibial Tray Implanted:Qty : 1 on 03/08/2017 by Nilesh Mojica DO at [facility] Left: Ankle [employer] 01/09/2025 [id number] / / [id number] Cmpnt Tlr Inbone 3 Dome Ankl Sulcus Implanted:Qty : 1 on 03/08/2017 by Nilesh Mojica DO at [facility] Left: Ankle [employer] 12/09/2024 [id number] / / [id number] Infinity Poly Insert Implanted:Qty : 1 on 03/08/2017 by Nilesh Mojica DO at [facility] Left: Ankle [employer] 10/22/2024 [id number] / / [id number] Screw Qckfix Kyler Canc 4.0 X 46 Implanted:Qty : 1 on 03/08/2017 by Nilesh Mojica DO at [facility] Left: Ankle Arthrex Inc [id number] / / Plate 61mm 3 Hl Hk Lck Ss Ft/Ankl Mdl Implanted:Qty : 1 on 03/08/2017 by Nilesh Mojica DO at [facility] Left: Ankle [employer]rex Inc [id number] / / Screw 3.5mm 38mm T15 Hexalobe Ft Ankl Implanted:Qty : 1 on 03/08/2017 by Nilesh Mojica DO at [facility] Left: Ankle [employer]rex Inc [id number] / / Graft Bone Othblst Ii Dbm Canc 1cc Alg - [id number] Implanted:Qty : 1 on 03/08/2017 by Nilesh Mojica DO at [facility] Left: Ankle [employer] 01/01/2019 / [id number] / [id number] Explanted Type Area Quality Assurance Auditor Device Identifier Shelf Expiration Date Model / Serial / Lot Jonathan Total Ank Replacement Explanted:Qty: 1 on 03/08/2017 at [facility] Left: Ankle [employer] Inc TOTAL ANKLE REPL MORE / / Screw Qckfix Kyler Canc 4.0 X 46 Explanted:Qty: 1 on 03/08/2017 by Nilesh Mojica DO at [facility] Left: Ankle Arthrex Inc AR-[id number] PTS / / Insurance MEDICARE MEDICARE SUPPLEMENT [facility]OR [facility] Advance Directives Documents on File Type Date Recorded Patient Certified Novell Administrator Expl anation Adv Directive/Living Will/POA 03/12/2017 8:08 PM * Full Code (Latest Code Status on File) Date Activated Date Inactivated Comments 03/08/2017 12:28 PM 03/09/2017 4:41 PM Care Teams Winchman/Crane Operator Relationship Specialty Start Date End Date Leticia Handley MD PCP - General Internal Medicine 12/06/16 Nilesh Mojica DO Orthopedic Surgery 12/06/16 Enoc Sheridan, PAMonieC [address] [place] [address] [place] [address] Physician Barman Physician Barman 03/13/17
--- OUTSIDE RECORDS SUMMARY | 2024-10-01 11:02 | XMS_ITS | Clinical Summary ---
Author Organization [facility] [address] Address [address] [place] [address] Care Team Providers Care Group Underwriter Name Role Phone Leticia Handley MD Primary [...] 1 tablet (75 mcg total) by mouth development director before breakfast 30 tablet 1 06/17/19 23 [...] we should send an updated script to [facility] in 2-3 weeks) -start glycopyrrolate 1mg TID for sialorrhea -if ineffective consider Botox injections Assessment & Plan (03/12/2024 1:31 PM DIGITAL MARKETING ASSISTANT): He has stage 3 parkinsonism with [...] placement 11/29/2016 Coronary artery disease invo lving iliamna coronary artery of iliamna heart without angina pectoris 08/14/2016 Overview (09/29/2016): Coronary artery disease involving iliamna coronary artery of iliamna heart with other form of angina pectoris [...] Description 09/23/2024 3:00 PM CDT Ancillary Procedure [facility] Cardiology at [address] [place] [phone] Postoperative atrial fibrillation (HCC) 09/23/2024 2:30 PM CDT Office Visit [facility] Cardiology at [address] [place] [phone] Freeman Chavira MD Coronary artery disease involving iliamna coronary artery of iliamna heart without angina pectoris (Primary Dx); Chronic heart failure with preserved ejection fraction (HFpEF) (HCC); Postoperative atrial fibrillation (HCC); S/P aortic valve replacement with bioprosthetic valve; YANET on CPAP; Chronic anticoagulation 09/09/2024 11:15 AM CDT Procedure visit [facility] [address] [facility] 6th [place] [address] Isiah Brown MD PhD Sialorrhea (Primary Dx); Parkinson's disease without dyskinesia or fluctuating manifestations (HCC) 09/09/2024 Orders Only [facility] [address] [facility] Medicine 6th [place] [address] [place] [phone] Isiah Brown MD PhD Sialorrhea 09/09/2024 Telephone [facility] [address] [facility] [address] [place] [phone] Charlette Arias, RN 09/02/2024 Telephone [facility] [address] [phone] Zelda Negron RN 08/20/2024 Orders Only [facility] [address] [place] [address] 6th [place] [address] [place] [phone] Isiah Brown MD PhD Sialorrhea (Primary Dx) 08/13/2024 Telephone [facility] [address] [place] [phone] Zelda Negron RN 08/12/2024 1:30 PM CDT Office Visit [facility] [address] [place] [phone] Isiah Brown MD PhD Parkinson's disease without [...] Hypertension Hypertension Adiposity Obesity Sleep apnea CPAP NC (myocardial infarction) (HCC) 2014 CAD (coronary artery [...] file Legal Sex Male 12:29 AM DIGITAL MARKETING ASSISTANT Gender Identity Not on file Sexual Orientation Not on file Obstetrics History Last Filed Vital Signs Vital Sign Reading Time Taken Comments Blood Pressure 118/66 09/23/2024 1:55 PM CDT Pulse 71 09/23/2024 1:55 PM CDT Temperature 36.8 C (98.2 F) 08/12/2024 12:47 PM CDT Respiratory Rate 18 04/10/2024 2:18 PM DIGITAL MARKETING ASSISTANT Oxygen Saturation 95% 09/23/2024 1:55 PM CDT [...] 09/10/2012, 06/13/2004 Medical Devices Implanted Type Area Welding Machine Operator Electro Gas Device Identifier Shelf Expiration Date Model / Serial / Lot Ziggy Medical Plate Bone Low Profile 6 Hole H Shape Ti 115.102.06 - [id number] Implanted:Qty: 1 on 06/05/2022 by Nicolás Arevalo MD at [facility] Plate N/A: Sternum [employer] 115.102. 06 / / Ziggy Medical Plate Bone Low Profile 4 Hole Box Ti 115.103.04 - [id number] Implanted:Qty: 1 on 06/05/2022 by Nicolás Arevalo MD at [facility] Plate N/A: Sternum [employer] 115.103. 04 / / Ziggy Medical Plate Bone Low Profile 6 Hole O Concave Ti 115.604.06 - [id number] Implanted:Qty: 1 on 06/05/2022 by Nicolás Arevalo MD at [facility] Plate N/A: Sternum [employer] 115.604. 06 / / Bhatti Lif[employer]iences Von-Tim ds Perimount Magna Ease 23mm Bioprosthesis [id number] - [id number] - [id number] Implanted:Qty: 1 on 06/05/2022 by Nicolás Arevalo MD at [facility] Prosthetic Valve N/A: Heart [employer] 07/18/2024 [id number] / [id number] / Ziggy Medical Screw Bone Slf Drl Full Thread Locking 3.5x14mm Ti 100.035.14 - [id number] Implanted:Qty: 10 on 06/05/2022 by Nicolás Arevalo MD at [facility] Screw N/A: Sternum [employer] 100.035. 14 / / Ziggy Medical Screw Bone Slf Drl Full Thread Locking 3.5x16mm Ti 100.035.16 - [id number] Implanted:Qty: 6 on 06/05/2022 by Nicolás Arevalo MD at [facility] Screw N/A: Sternum [employer] 100.035. 16 / / Procedures Procedure Name Priority Date/Time Associated Diagnosis Comments POCT LIPID PANEL Routine 08/02/2023 10:2 9 AM CDT Coronary artery disease involving iliamna coronary artery of iliamna heart without angina pectoris EGFR Routine 06/16/2022 10:03 AM DIGITAL MARKETING ASSISTANT HEMOGLOBIN A1C Routine 05/30/2022 12:59 PM DIGITAL MARKETING ASSISTANT Preop testing Type 2 diabetes mellitus [...] Final Result * eGFR (06/16/2022 10:03 AM DIGITAL MARKETING ASSISTANT) eGFR 67 mL/min/1. 73 m2 RYAN [...] reviewed 2021. Blood 06/16/2022 10:0 3 AM DIGITAL MARKETING ASSISTANT 06/16/2022 10:03 AM DIGITAL MARKETING ASSISTANT Nicolás Arevalo MD LAB BLOOD ORDERABLES Final Res ult Performing Organization Address [facility] de Phone Number RYAN [address] [address] [address] * Hemoglobin A1c (05/30/2022 12:59 PM DIGITAL MARKETING ASSISTANT) Hgb A1C 5.5 4.0 - 5.6 % RYAN Estimated Average Glucose 111 mg/dL RYAN LUX Comment: The ADA recommends reporting an estimated Average Glucose (eAG) with all Hemoglobin A1c results using the equation derived from a study of 507 normal and diabetic adults. Minority populations were underrepresented and children were not included. (Diabetes Care 31:7327-4439, 2008). The eAG is not equivalent to a fasting glucose. Blood 05/30/2022 12:5 9 PM DIGITAL MARKETING ASSISTANT 05/30/2022 1:03 PM DIGITAL MARKETING ASSISTANT Nicolás Arevalo MD LAB BLOOD ORDERABLES Final Res ult Performing Organization Address [facility] de Phone Number RYAN [address] [address] [facility] [place] [address] from Last 3 Months or Most Recently Relevant to Health Maintenance Insurance MEDICARE [facility] MEDICARE SUPPLEMENT INSURANCE MEDICARE [facility] MEDICARE SUPPLEMENT MEDICARE [facility] MEDICARE SUPPLEMENT Advance Directives For more information, please contact: [phone] * Full Code (Latest Code Status on File) Date Activated Date Inactivated Comments 06/05/2022 2:49 PM 06/16/2022 5:28 PM Care Teams Group Underwriter Relationship Specialty Start Date End Date Leticia Handley MD [address] [place] [address] PCP - General Internal Medicine 05/08/23
--- OUTSIDE RECORDS SUMMARY | 2024-10-01 11:02 | XMS_ITS | Encounter Summary ---
Author Organization [facility] Address [address] [place] [address] Care Team Providers Care Electrode Cleaning Machine Operator Name Role Phone Leticia Handley MD Primary Care Provider [phone] Karrie Mcgregor DO Primary Care Provide r Leticia Handley MD Primary Care Provider + [phone] Encounter Details Date Type Department Care Team (Late st Contact Info) Description 08/15/2016 Orders Only [facility] ProviderNila MD [address] [place] [address] Social History Tobacco Use Types Packs/Day Years Used Date Smoking Tobacco: Never Alcohol Use Standard Drinks/Week Comments Yes 0 (1 standard drink = 0.6 oz pur e alcohol) Sex and Gender Information Value Date Recorded Sex Assigned at Not on file 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
--- OUTSIDE RECORDS SUMMARY | 2024-10-01 11:02 | XMS_ITS | Encounter Summary ---
Author Organization [facility] Healthcare Address [address] [place] [address] Care Team Providers Care Lumber Tailer Name Role Phone Leticia Handley MD Primary Care Provider [phone] Karrie Mcgregor DO Primary Care Provide r Leticia Handley MD Primary Care Provider + [phone] Encounter Details Date Type Department Care Team (Late st Contact Info) Description 04/22/2019 Telephone [facility] Radiology [address] [place] [address] Steff Shah, RT Social History Tobacco Use Types Packs/Day Years Used Date Smoking Tobacco: Never Smokeless Tobacco: Never Alcohol Use Standard Drinks/Week Comments Yes 0 (1 standard drink = 0.6 oz pur e alcohol) Sex and Gender Information Value Date Recorded Sex Assigned at Not on file Legal Sex Male 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
--- OUTSIDE RECORDS SUMMARY | 2024-10-01 11:02 | XMS_ITS | Encounter Summary ---
Author Organization [facility] Address [address] [place] [address] Care Team Providers Care Cartographic Drafter Name Role Phone Leticia Handley MD Primary Care Provider [phone] Nilesh Mojica DO Unavailable Enoc Sheridan PA-C Unavailable Encounter Details Date Type Department Care Team (Late st Contact Info) Description 12/06/2016 [facility] Outpatient Visit [facility] Orthopedics - Radiology [address] [place] [address] Nilesh Mojica [facility] Medical [address] [address] Social History Tobacco Use Types [...] st Contact Info) Description 03/09/2025 10:40 AM ACQUISITION ASSOCIATE Office Visit [facility] Health Orthopedics [address], [address] [address] Nilesh Mojica [address] [address] documented as of this encounter Visit Diagnoses Not on filedocumented in this encounter Care Teams Cartographic Drafter Relationship Specialty Start Date End Date Leticia Handley MD PCP - General Internal Medicine 12/06/16 Nilesh Mojica DO Orthopedic Surgery 12/06/16 Enoc Sheridan PA-C [address] [place] [address] Physician Plate Finisher Physician Plate Finisher 03/13/17 documented as of this encounter
--- OUTSIDE RECORDS SUMMARY | 2024-10-01 11:02 | XMS_ITS | Referral Summary ---
Author Organization [facility] [address] Address [address] [place] [address] Care Team Providers Care Sports Medicine Masseur Name Role Phone Leticia Handley MD Primary Care Provider Encounters Date Type Department Care Team Description 09/23/2024 3:00 PM CDT Ancillary Procedure [facility] Medical Group Cardiology at [address] [place] [address] Postoperative atrial fibrillation (HCC) 09/23/2024 2:30 PM CDT Office Visit [facility] Medical Group Cardiology at [address] [place] [address] Freeman Chavira MD Coronary artery disease involving egegik coronary artery of egegik heart without angina pectoris (Primary Dx); Chronic heart failure with preserved ejection fraction (HFpEF) (HCC); Postoperative atrial fibrillation (HCC); S/P aortic valve replacement with bioprosthetic valve; YANET on CPAP; Chronic anticoagulation 09/09/2024 Orders Only [facility] Movement Disorders [facility] Advanced Medicine 6th [place] [address] [place] [address] Isiah Brown MD PhD Sialorrhea 09/09/2024 Telephone [facility] Movement Disorders [address] [facility] Medicine 7th [place] [address] Charlette Arias RN 09/09/2024 11:15 AM CDT Procedure visit [facility] Movement Disorders [address] [place] [address] 6th [place] [address] Isiah Brown MD PhD Sialorrhea (Primary Dx); Parkinson's disease without dyskinesia or fluctuating manifestations (HCC) 09/02/2024 Telephone [facility] Movement Disorders [address] [place] [phone] Zelda Negron RN 08/20/2024 Orders Only [facility] Movement Disorders [address] [place] [address] [place] [address] Isiah Brown MD PhD Sialorrhea (Primary Dx) 08/13/2024 Telephone [facility] Movement Disorders [address] [place] [address] Zelda Negron RN 08/12/2024 1:30 PM CDT Office Visit [facility] Movement Disorders [address] [place] [address] Isiah Brown MD PhD Parkinson's disease without [...] (75 mcg total) by mouth early childhood specialist before breakfast 30 tablet 1 06/17/19 [...] we should send an updated script to [facility] in 2-3 weeks) -start glycopyrrolate 1mg TID for sialorrhea -if ineffective consider Botox injections Assessment & Plan (03/12/2024 1:31 PM RECYCLING CENTER OPERATOR): He has stage 3 parkinsonism with [...] placement 11/29/2016 Coronary artery disease invo lving egegik coronary artery of egegik heart without angina pectoris 08/14/2016 Overview (09/29/2016): Coronary artery disease involving egegik coronary artery of egegik heart with other form of angina pectoris [...] relatives? Three times a week 06/06/2022 Attends [employer] Not on file 06/06 Active Member [...] on file Legal Sex Male 12:29 AM RECYCLING CENTER OPERATOR Gender Identity Not on file Sexual Orientation Not on file Last Filed Vital Signs Vital Sign Reading Time Taken Comments Blood Pressure 118/66 09/23/2024 1:55 PM CDT Pulse 71 09/23/2024 1:55 PM CDT Temperature 36.8 C (98.2 F) 08/12/2024 12:47 PM CDT Respiratory Rate 18 04/10/2024 2:18 PM RECYCLING CENTER OPERATOR Oxygen Saturation 95% 09/23/2024 1:55 PM CDT Inhaled Oxygen Concentration - - Weight 80.7 kg (178 lb) 09/23/2024 1:55 PM CDT Height 165.1 cm (5' 5) 09/23/2024 1:55 PM CDT Body Mass Index 29.62 09/23/2024 1:55 PM CDT Plan of Treatment Not on file Medical Devices Implanted Type Area Sand Mixer Operator Device Identifier Shelf Expiration Date Model / Serial / Lot Ziggy Medical Plate Bone Low Profile 6 Hole H Shape Ti 115.102.06 - [id number] Implanted:Qty: 1 on 06/05/2022 by Nicolás Arevalo MD at [facility] Plate N/A: Sternum [employer] 115.102. 06 / / Ziggy Medical Plate Bone Low Profile 4 Hole Box Ti 115.103.04 - [id number] Implanted:Qty: 1 on 06/05/2022 by Nicolás Arevalo MD at [facility] Plate N/A: Sternum [employer] 115.103. 04 / / Ziggy Medical Plate Bone Low Profile 6 Hole O Concave Ti 115.604.06 - [id number] Implanted:Qty: 1 on 06/05/2022 by Nicolás Arevalo MD at [facility] Plate N/A: Sternum [employer] 115.604. 06 / / [employer] Priscila ds Perimount Magna Ease 23mm Bioprosthesis [id number] - [id number] - [id number] Implanted:Qty: 1 on 06/05/2022 by Nicolás Arevalo MD at [facility] Prosthetic Valve N/A: Heart [employer] 07/18/2024 [id number] 3MM / [id number] / Ziggy Medical Screw Bone Slf Drl Full Thread Locking 3.5x14mm Ti 100.035.14 - [id number] Implanted:Qty: 10 on 06/05/2022 by Nicolás Arevalo MD at [facility] Screw N/A: Sternum [employer] 100.035. 14 / / Ziggy Medical Screw Bone Slf Drl Full Thread Locking 3.5x16mm Ti 100.035.16 - [id number] Implanted:Qty: 6 on 06/05/2022 by Nicolás Arevalo MD at [facility] Screw N/A: Sternum [employer] 100.035. 16 / / Procedures Procedure Name Priority Date/Time Associated Diagnosis Comments POCT LIPID PANEL Routine 08/02/2023 10:2 9 AM CDT Coronary artery disease involving egegik coronary artery of egegik heart without angina pectoris EGFR Routine 06/16/2022 10:03 AM RECYCLING CENTER OPERATOR HEMOGLOBIN A1C Routine 05/30/2022 12:59 PM RECYCLING CENTER OPERATOR Preop testing Type 2 diabetes mellitus [...] Final Result * eGFR (06/16/2022 10:03 AM RECYCLING CENTER OPERATOR) eGFR 67 mL/min/1. 73 m2 RYAN [...] reviewed 2021. Blood 06/16/2022 10:0 3 AM RECYCLING CENTER OPERATOR 06/16/2022 10:03 AM RECYCLING CENTER OPERATOR Nicolás Arevalo MD LAB BLOOD ORDERABLES Final Res ult Performing Organization Address [facility] de Phone Number RYAN [phone] [place] [address] * Hemoglobin A1c (05/30/2022 12:59 PM RECYCLING CENTER OPERATOR) Hgb A1C 5.5 4.0 - 5.6 % RYAN Estimated Average Glucose 111 mg/dL RYAN LUX Comment: The ADA recommends reporting an estimated Average Glucose (eAG) with all Hemoglobin A1c results using the equation derived from a study of 507 normal and diabetic adults. Minority populations were underrepresented and children were not included. (Diabetes Care 31:1794-8517, 2008). The eAG is not equivalent to a fasting glucose. Blood 05/30/2022 12:5 9 PM RECYCLING CENTER OPERATOR 05/30/2022 1:03 PM RECYCLING CENTER OPERATOR Nicolás Arevalo MD LAB BLOOD ORDERABLES Final Res ult Performing Organization Address [facility] Co de Phone Number RYAN [phone] [facility] [employer] [place] [address] from Last 3 Months or Most Recently Relevant to Health Maintenance [place] [address] [facility] MEDIC[place] [address] [address] [id number] [place] [address] [facility] [place] [id number] MEDICARE [facility] MEDICARE SUPPLEMENT Advance Directives For more information, please contact: [phone] * Full Code (Latest Code Status on File) Date Activated Date Inactivated Comments 06/05/2022 2:49 PM 06/16/2022 5:28 PM Care Teams Sports Medicine Masseur Relationship Specialty Start Date End Date Leticia Handley MD [address] [place] [address] PCP - General Internal Medicine 05/08/23
[2024-10-01 11:03] LABS: Alanine Aminotransferase 10 U/L (6-50); Albumin Level 3.2 g/dL (3.5-5.1); Alkaline Phosphatase 103 U/L (38-126); Anion Gap 4 mmol/L (4-12); Aspartate Amino Transferase 27 U/L (17-59); Bilirubin,Total 0.4 mg/dL (0.2-1.3); Blood Urea Nitrogen 11 mg/dL (9-20); Calcium 8.2 mg/dL (8.4-10.2); Carbon Dioxide 26 mmol/L (22-30); Chloride 105 mmol/L (98-107); Estimated CRCL calculation 65 ml/min; Estimated Glomerular Filt Rate > 60; Glucose 124 mg/dL (65-110); Magnesium 2.3 mg/dL (1.6-2.3); Osmolality Calculated 280 mOsm/kg (285-295); Potassium 3.7 mmol/L (3.4-5.0); Sodium 135 mmol/L (137-145)
[2024-10-01 11:11] LABS: NT Pro B Type Natriuretic Pept 469 pg/mL (19.9-100)
[2024-10-01 11:15] LABS: Troponin I < 0.012 ng/mL (0.000-0.034)
[2024-10-01 11:48] LABS: Add Urine Microscopic? NO; Appearance Urine Clear (Clear); Bilirubin Urine Negative (Negative); Blood Urine Trace-intact (Negative); Color Urine Light Yellow (Yellow); Glucose Urine UA Negative (Negative); Ketones Urine Trace (Negative); Leukocyte Esterase Ur Negative LEU/UL (Negative); Nitrate Urine Negative (Negative); Protein Urine Negative (Negative); Urobilinogen Urine 0.2 mg/dL (0.2-1.0)
== END 2024-10-01 12:47 | disposition home or self-care (01) ==
PROVIDERS: Emergency Provider Internal Medicine Critical Care Medicine; PCP Internal Medicine
DX: I50.9 Heart failure, unspecified (principal); D64.9 Anemia, unspecified; I10 Essential (primary) hypertension; E11.9 Type 2 diabetes mellitus without complications; E78.5 Hyperlipidemia, unspecified; E03.9 Hypothyroidism, unspecified; I25.810 Atherosclerosis of coronary artery bypass graft(s) without angina pectoris; Z95.1 Presence of aortocoronary bypass graft; I48.91 Unspecified atrial fibrillation; G20.A1 Parkinson's disease without dyskinesia, without mention of fluctuations; Z79.01 Long term (current) use of anticoagulants
CPT/HCPCS: 36415; 70450; 71045; 80053; 81003; 83605; 83735; 83880; 84484; 85025; 93005; 99284

== ENCOUNTER 2024-10-03 11:58 | Outpatient (CLI) | payer MEDICARE, SELFPAY ==
--- OUTSIDE RECORDS SUMMARY | 2024-10-03 12:03 | XMS_ITS | Referral Summary ---
Author Organization [facility] [address] Address [address] [place] [address] Care Team Providers Care Tire Spotter Name Role Phone Leticia Handley MD Primary Care Provider [phone] Encounters Date Type Department Care Team Description 09/23/2024 3:00 PM CDT Ancillary Procedure [facility] Medical Group Cardiology at [address] [place] [address] Postoperative atrial fibrillation (HCC) 09/23/2024 2:30 PM CDT Office Visit [facility] Medical Group Cardiology at [address] [place] [address] Freeman Chavira MD Coronary artery disease involving igiugig coronary artery of igiugig heart without angina pectoris (Primary Dx); Chronic heart failure with preserved ejection fraction (HFpEF) (HCC); Postoperative atrial fibrillation (HCC); S/P aortic valve replacement with bioprosthetic valve; YANET on CPAP; Chronic anticoagulation 09/09/2024 Orders Only [facility] Movement Disorders [facility] Advanced Medicine 6th [place] [address] [place] [address] Isiah Brown MD PhD Sialorrhea 09/09/2024 Telephone [facility] Movement Disorders [address] [facility] Medicine 7th [place] [address] Charlette Arias RN 09/09/2024 11:15 AM CDT Procedure visit [facility] Movement Disorders [address] [place] [address] 6th [place] [address] Isiah Brown MD PhD Sialorrhea (Primary Dx); Parkinson's disease without dyskinesia or fluctuating manifestations (HCC) 09/02/2024 Telephone [facility] Movement Disorders [address] [place] [address] Zelda Negron RN 08/20/2024 Orders Only [facility] Movement Disorders [address] [place] [address] [place] [address] Isiah Brown MD PhD Sialorrhea (Primary Dx) 08/13/2024 Telephone [facility] Movement Disorders [address] [place] [address] Zelda Negron RN 08/12/2024 1:30 PM CDT Office Visit [facility] Movement Disorders [address] [place] [address] Isiah Borwn MD PhD Parkinson's disease without [...] 1 tablet (75 mcg total) by mouth log loader helper before breakfast 30 tablet 1 06/17/19 23 [...] DAY 90 tablet 3 10/15/19 24 Active pramipexole (MIRAPEX) 1 mg tablet Take [...] 540 tablet 3 08/14/19 25 2025 Active carbidopa-levod opa (SINEMET) 25-100 mg per tabletIndicatio ns:Parkinsonism Take 1.5 tab tid 405 tablet 3 10/03/19 25 Active carbidopa-levod opa (SINEMET) 25-100 mg per tabletIndicatio ns:Parkinsonism Take 1 tablet by mouth 3 (three) times a day 270 tablet 3 01/02/20 24 2024 Discontinued rivaroxaban (XARELTO) 20 mg tablet Take 1 [...] we should send an updated script to [facility] in 2-3 weeks) -start glycopyrrolate 1mg TID for sialorrhea -if ineffective consider Botox injections Assessment & Plan (03/12/2024 1:31 PM BAG BLEACHER): 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 Three times a week 06/06/2022 Attends [employer] Not on file 06/06 Active Member [...] on file Legal Sex Male 12:29 AM BAG BLEACHER Gender Identity Not on file Sexual Orientation Not on file Last Filed Vital Signs Vital Sign Reading Time Taken Comments Blood Pressure 118/66 09/23/2024 1:55 PM CDT Pulse 71 09/23/2024 1:55 PM CDT Temperature 36.8 C (98.2 F) 08/12/2024 12:47 PM CDT Respiratory Rate 18 04/10/2024 2:18 PM BAG BLEACHER Oxygen Saturation 95% 09/23/2024 1:55 PM CDT Inhaled Oxygen Concentration - - Weight 80.7 kg (178 lb) 09/23/2024 1:55 PM CDT Height 165.1 cm (5' 5) 09/23/2024 1:55 PM CDT Body Mass Index 29.62 09/23/2024 1:55 PM CDT Plan of Treatment Not on file Medical Devices Implanted Type Area Cra Device Identifier Shelf Expiration Date Model / Serial / Lot Ziggy Medical Plate Bone Low Profile 6 Hole H Shape Ti 115.102.06 - [id number] Implanted:Qty: 1 on 06/05/2022 by Nicolás Arevalo MD at [facility] Plate N/A: Sternum [employer] 115.102. 06 / / Ziggy Medical Plate Bone Low Profile 4 Hole Box Ti 115.103.04 - [id number] Implanted:Qty: 1 on 06/05/2022 by Nicolás Arevalo MD at [facility] Plate N/A: Sternum [employer] 115.103. 04 / / Ziggy Medical Plate Bone Low Profile 6 Hole O Concave Ti 115.604.06 - [id number] Implanted:Qty: 1 on 06/05/2022 by Nicolás Arevalo MD at [facility] Plate N/A: Sternum [employer] 115.604. 06 / / [employer] Priscila ds Perimount Magna Ease 23mm Bioprosthesis [id number] - [id number] - [id number] Implanted:Qty: 1 on 06/05/2022 by Nicolás Arevalo MD at [facility] Prosthetic Valve N/A: Heart [employer] 07/18/2024 [id number] / [id number] / Ziggy Medical Screw Bone Slf Drzina Full Thread Locking 3.5x14mm Ti 100.035.14 - [id number] Implanted:Qty: 10 on 06/05/2022 by Nicolás Arevalo MD at [facility] Screw N/A: Sternum [employer] 100.035. 14 / / [employer] Medical Screw Bone Slf Drl Full Thread Locking 3.5x16mm Ti 100.035.16 - [id number] Implanted:Qty: 6 on 06/05/2022 by Nicolás Arevalo MD at [facility] Screw N/A: Sternum [employer] 100.035. 16 / / Procedures Procedure Name Priority Date/Time Associated Diagnosis Comments POCT LIPID PANEL Routine 08/02/2023 10:2 9 AM CDT Coronary artery disease involving igiugig coronary artery of igiugig heart without angina pectoris EGFR Routine 06/16/2022 10:03 AM BAG BLEACHER HEMOGLOBIN A1C Routine 05/30/2022 12:59 PM BAG BLEACHER Preop testing Type 2 diabetes mellitus with [...] Final Result * eGFR (06/16/2022 10:03 AM BAG BLEACHER) eGFR 67 mL/min/1. 73 m2 RYAN LUX [...] reviewed 2021. Blood 06/16/2022 10:0 3 AM BAG BLEACHER 06/16/2022 10:03 AM BAG BLEACHER Nicolás Arevalo MD LAB BLOOD ORDERABLES Final Res ult RYAN LUX [id number] [place] [address] * Hemoglobin A1c (05/30/2022 12:59 PM BAG BLEACHER) [facility] Hgb A1C 5.5 4.0 - 5.6 % RYAN LUX Estimated Average Glucose 111 mg/dL RYAN LUX Comment: The ADA recommends reporting an estimated Average Glucose (eAG) with all Hemoglobin A1c results using the equation derived from a study of 507 normal and diabetic adults. Minority populations were underrepresented and children were not included. (Diabetes Care 31:7947-1259, 2008). The eAG is not equivalent to a fasting glucose. Blood 05/30/2022 12:5 9 PM BAG BLEACHER 05/30/2022 1:03 PM BAG BLEACHER Nicolás Arevalo MD LAB BLOOD ORDERABLES Final Res ult RYAN LUX [id number] [facility] [place] [address] from Last 3 Months or Most Recently Relevant to Health Maintenance Insurance MEDICARE [facility] MEDICARE SUPPLEMENT INSURANCE MEDICARE [facility] MEDICARE SUPPLEMENT MEDICARE [facility] MEDICARE SUPPLEMENT Advance Directives For more information, please contact: [phone] * Full Code (Latest Code Status on File) Date Activated Date Inactivated Comments 06/05/2022 2:49 PM 06/16/2022 5:28 PM Care Teams Tire Spotter Relationship Specialty Start Date End Date Leticia Handley MD [address] [place] [address] PCP - General Internal Medicine 05/08/23
--- OUTSIDE RECORDS SUMMARY | 2024-10-03 12:03 | XMS_ITS | Encounter Summary ---
Author Organization [facility] Address [address] [place] [address] Care Team Providers Care Body Shop Worker Name Role Phone Leticia Handley MD Primary Care Provider [phone] Nilesh Mojica DO Unavailable Enoc Sheridan PA-C Unavailable Encounter Details Date Type Department Care Team (Late st Contact Info) Description 12/06/2016 [facility] Outpatient Visit [facility] Orthopedics - Radiology [address] [place] [address] [facility] Medical [address] [address] Social History Tobacco Use Types [...] st Contact Info) Description 03/09/2025 10:40 AM POWER SHOVEL ENGINEER Office Visit [facility] Health Orthopedics [address], [address] [address] Nilesh Mojica [address] [address] documented as of this encounter Visit Diagnoses Not on filedocumented in this encounter Care Teams Body Shop Worker Relationship Specialty Start Date End Date Leticia Handley MD PCP - General Internal Medicine 12/06/16 Nilesh Mojica DO Orthopedic Surgery 12/06/16 Enoc Sheridan PA-C [address] [place] [address] Physician Vulcanizing Press Operator Physician Vulcanizing Press Operator 03/13/17 documented as of this encounter
--- OUTSIDE RECORDS SUMMARY | 2024-10-03 12:03 | XMS_ITS | Patient Health Record ---
Author Organization [facility] Address [address] [place], [place] [id number] Care Team Providers Care Hotel Baggage Handler Name Role Phone AURA ANASTASIIA Unavailable [phone] Estela Handley Unavailable Unavailable ILEANADANNY CARLOS Unavailable [phone] OPAL ROBISON Unavailable [phone] Allergies No Known Allergies Reason For Referral [...] 09/25/2024 Encounters Encounter Location Date Provider Diagnosis [address] [id number] 07/24/2024 ANASTASIIA ORNELAS Tinea unguium B35.1 ; Pain in right foot M79.671 ; Pain in left foot M79.672 ; Atherosclerosis of [place] arteries of extremities with intermittent claudication, bilateral legs I70.213 and Acquired keratosis [keratoderma] palmaris et plantaris L85.[address] [id number] 09/25/2024 OPAL ROBISON Tinea unguium B35.1 ; Pain in right foot M79.671 ; Pain in left foot M79.672 ; Atherosclerosis of w[place] arteries of extremities with intermittent claudication, bilateral legs I70.213 and Acquired keratosis [keratoderma] palmaris et plantaris L85.[address] [id number] 11/29/2023 CARLOS STEVE Other hammer toe(s) (acquired), right foot M20.41 ; Tinea unguium B35.1 ; Other hammer toe(s) (acquired), left foot M20.42 ; Pain in right toe(s) M79.674 ; Pain in left toe(s) M79.675 ; Pain in right foot M79.671 ; Pain in left foot M79.672 ; 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wilton arteries of extremities, bilateral legs I70.203 and Acquired keratosis [keratoderma] palmaris et plantaris L85.[address] [id number] 01/31/2024 CARLOS STEVE Other hammer toe(s) (acquired), right foot M20.41 ; Tinea unguium B35.1 ; Other hammer toe(s) (acquired), left foot M20.42 ; Pain in right toe(s) M79.674 ; Pain in left toe(s) M79.675 ; Pain in right foot M79.671 ; Pain in left foot M79.672 ; 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w[place] arteries of extremities, bilateral legs I70.203 and Acquired keratosis [keratoderma] palmaris et plantaris L85.[address] [id number] 04/10/2024 CARLOS STEVE Other hammer toe(s) (acquired), right foot M20.41 ; Tinea unguium B35.1 ; Other hammer toe(s) (acquired), left foot M20.42 ; Pain in right toe(s) M79.674 ; Pain in left toe(s) M79.675 ; Pain in right foot M79.671 ; Pain in left foot M79.672 ; 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[place] arteries of extremities, bilateral legs I70.203 and Acquired keratosis [keratoderma] palmaris et plantaris L85.[address] [place] [id number] 05/22/2024 ANASTASIIA ORNELAS Tinea unguium B35.1 ; Pain in right foot M79.671 ; Pain in left foot M79.672 ; Atherosclerosis of [place] arteries of extremities with intermittent claudication, bilateral [...] toe(s) (ICD-10 - M79.674) 07/24/2024 Atherosclerosis of w[place] arteries of extremities with intermittent claudication, bilateral legs (ICD-10 - I70.213) 05/22/2024 Atherosclerosis of [place] arteries of extremities with intermittent claudication, bilateral legs (ICD-10 - I70.213) 04/10/2024 Pain in right toe(s) (ICD-10 - M79.674) 09/25/2024 Atherosclerosis of [place] arteries of extremities with intermittent claudication, bilateral [...] (ICD-10 - M79.672) 11/29/2023 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w[place] arteries of extremities, bilateral legs (ICD-10 - I70.203) Patient educated on risks and aggravating factors of PVD, including conservative treatment options such as a diet and exercise regimen to aid in slowing progression of vascular disease 01/31/2024 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[place] arteries of extremities, bilateral legs (ICD-10 - I70.203) Patient educated on risks and aggravating factors of PVD, including conservative treatment options such as a diet and exercise regimen to aid in slowing progression of vascular disease 04/10/2024 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[place] arteries of extremities, bilateral legs (ICD-10 - [...] Details Provider Name:OPAL GUZMAN, 12/04/2024 02:30:00 PM, [address] [place] [address], [id number], Insurance Providers Payer Name Payer Address Payer Phone Subscriber Number Group Number Insured Name Patient Relationship to Insured Coverage Start Date Coverage End Date Medicare Part B [place] [address] [place] [phone] [id number] KATIE CRUZ Self - patient is the insured [facility] ([facility]) ATTN CLAIMS [address] [place] [address] [id number] KATIE CRUZ Self - patient is the insured 4 Medical (General) History Surgical History Surgery Date(Month/Year) Total ankle replacement 2014
--- OUTSIDE RECORDS SUMMARY | 2024-10-03 12:03 | XMS_ITS | Encounter Summary ---
Author Organization [facility] Address [address] [place] [address] Care Team Providers Care Manager Statistical Programming Name Role Phone Leticia Handley MD Primary Care Provider [phone] Karrie Mcgregor DO Primary Care Provide r Leticia Handley MD Primary Care Provider + [phone] Encounter Details Date Type Department Care Team (Late st Contact Info) Description 08/15/2016 Orders Only [facility] ProviderNila MD [address] [place] [address] Social History Tobacco Use Types Packs/Day Years Used Date Smoking Tobacco: Never Alcohol Use Standard Drinks/Week Comments Yes 0 (1 standard drink = 0.6 oz pur e alcohol) Sex and Gender Information Value Date Recorded Sex Assigned at Not on file Legal Sex Male 12:29 AM SHIATSU THERAPIST Gender Identity Not on file Sexual Orientation [...] on filedocumented in this encounter Care Teams Manager Statistical Programming Relationship Specialty Start Date End Date Leticia Handley MD [address] [place] [address] PCP - General 08/11/16 03/21/23 Karrie Mcgregor DO [address] [place] [address] PCP - General Psychiatry 03/22/23 05/07/23 Leticia Handley MD [address] [place] [address] PCP - General Internal Medicine 05/08/23 documented as of this encounter
--- OUTSIDE RECORDS SUMMARY | 2024-10-03 12:03 | XMS_ITS | Clinical Summary ---
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 [...] placement 11/29/2016 Coronary artery disease invo lving kasaan coronary artery of kasaan heart without angina pectoris 08/14/2016 Overview (09/29/2016): Coronary artery disease involving kasaan coronary artery of [place] heart with other form of angina pectoris [...] Description 09/23/2024 3:00 PM CDT Ancillary Procedure [facility] Cardiology at [address] [place] [phone] Postoperative atrial fibrillation (HCC) 09/23/2024 2:30 PM CDT Office Visit [facility] Cardiology at [address] [place] [phone] Freeman Chavira MD Coronary artery disease involving kasaan coronary artery of kasaan heart without angina pectoris (Primary Dx); Chronic heart failure with preserved ejection fraction (HFpEF) (HCC); Postoperative atrial fibrillation (HCC); S/P aortic valve replacement with bioprosthetic valve; YANET on CPAP; Chronic anticoagulation 09/09/2024 11:15 AM CDT Procedure visit [facility] [address] [place] [address] [address]th [place] [address] [place] [address] Isiah Brown MD PhD Sialorrhea (Primary Dx); Parkinson's disease without dyskinesia or fluctuating manifestations (HCC) 09/09/2024 Orders Only [facility] [address] 6th [place] [address] [place] [address] Isiah Brown MD PhD Sialorrhea 09/09/2024 Telephone [facility] [address] [address] Charlette Arias RN 09/02/2024 Telephone [facility] [address] [address] Zelda Negron, BARRERA 08/20/2024 Orders Only [facility] [address] [place] [address] 6th [place] [address] [place] [address] Isiah Brown MD PhD Sialorrhea (Primary Dx) 08/13/2024 Telephone [facility] [address] [place] [phone] Zelda Negron RN 08/12/2024 1:30 PM CDT Office Visit [facility] [address] [place] [phone] Isiah Brown MD PhD Parkinson's disease without [...] Medical History Relation Name Comments Stroke Father Peter Unexplained Father Peter Unexplained Mother Parkinsonism Mother's Brother Uncle Eliceo [...] relatives? Three times a week 06/06/2022 Attends Islam Services Not on file 06/06 Active Member [...] on file Legal Sex Male 12:29 AM PRINTING GREY CLOTH TENDER Gender Identity Not on file Sexual Orientation Not on file Obstetrics History Last Filed Vital Signs Vital Sign Reading Time Taken Comments Blood Pressure 118/66 09/23/2024 1:55 PM CDT Pulse 71 09/23/2024 1:55 PM CDT Temperature 36.8 C (98.2 F) 08/12/2024 12:47 PM CDT Respiratory Rate 18 04/10/2024 2:18 PM PRINTING GREY CLOTH TENDER Oxygen Saturation 95% 09/23/2024 1:55 PM CDT [...] 09/10/2012, 06/13/2004 Medical Devices Implanted Type Area Insurance Risk Analyst Device Identifier Shelf Expiration Date Model / Serial / Lot Ziggy Medical Plate Bone Low Profile 6 Hole H Shape Ti 115.102.06 - [id number] Implanted:Qty: 1 on 06/05/2022 by Nicolás Arevalo MD at [facility] Plate N/A: Sternum [employer] 115.102. 06 / / Ziggy Medical Plate Bone Low Profile 4 Hole Box Ti 115.103.04 - [id number] Implanted:Qty: 1 on 06/05/2022 by Nicolás Arevalo MD at [facility] Plate N/A: Sternum [employer] 115.103. 04 / / Ziggy Medical Plate Bone Low Profile 6 Hole O Concave Ti 115.604.06 - [id number] Implanted:Qty: 1 on 06/05/2022 by Nicolás Arevalo MD at [facility] Plate N/A: Sternum [employer] 115.604. 06 / / Bhatti Lifesciences Von-Tim ds Perimount Magna Ease 23mm Bioprosthesis [id number] - [id number] - [id number] Implanted:Qty: 1 on 06/05/2022 by Nicolás Arevalo MD at [facility] Prosthetic Valve N/A: Heart [employer] 07/18/2024 [id number] / [id number] / Ziggy Medical Screw Bone Slf Drl Full Thread Locking 3.5x14mm Ti 100.035.14 - [id number] Implanted:Qty: 10 on 06/05/2022 by Nicolás Arevalo MD at [facility] Screw N/A: Sternum [employer] 100.035. 14 / / Ziggy Medical Screw Bone Slf Drl Full Thread Locking 3.5x16mm Ti 100.035.16 - [id number] Implanted:Qty: 6 on 06/05/2022 by Nicolás Arevalo MD at [facility] Screw N/A: Sternum [employer] 100.035. 16 / / Procedures Procedure Name Priority Date/Time Associated Diagnosis Comments POCT LIPID PANEL Routine 08/02/2023 10:2 9 AM CDT Coronary artery disease involving kasaan coronary artery of kasaan heart without angina pectoris EGFR Routine 06/16/2022 10:03 AM PRINTING GREY CLOTH TENDER HEMOGLOBIN A1C Routine 05/30/2022 12:59 PM PRINTING GREY CLOTH TENDER Preop testing Type 2 diabetes mellitus with [...] Final Result * eGFR (06/16/2022 10:03 AM PRINTING GREY CLOTH TENDER) eGFR 67 mL/min/1. 73 m2 RYAN Comment: [...] reviewed 2021. Blood 06/16/2022 10:0 3 AM PRINTING GREY CLOTH TENDER 06/16/2022 10:03 AM PRINTING GREY CLOTH TENDER Nicolás Arevalo MD LAB BLOOD ORDERABLES Final Res ult Performing Organization Address City/[facility] Co de Phone Number RYAN LUX [phone] [place] [address] * Hemoglobin A1c (05/30/2022 12:59 PM PRINTING GREY CLOTH TENDER) Hgb A1C 5.5 4.0 - 5.6 % RYAN LUX Estimated Average Glucose 111 mg/dL RYAN LUX Comment: The ADA recommends reporting an estimated Average Glucose (eAG) with all Hemoglobin A1c results using the equation derived from a study of 507 normal and diabetic adults. Minority populations were underrepresented and children were not included. (Diabetes Care 31:7249-8228, 2008). The eAG is not equivalent to a fasting glucose. Blood 05/30/2022 12:5 9 PM PRINTING GREY CLOTH TENDER 05/30/2022 1:03 PM PRINTING GREY CLOTH TENDER Nicolás Arevalo MD LAB BLOOD ORDERABLES Final Res ult RYAN [address] [place] [address] from Last 3 Months or Most Recently Relevant to Health [place] [address] [id number] MEDICARE [facility] MEDICARE SUPPLEMENT INSURANCE MEDICARE [facility] MEDICARE SUPPLEMENT MEDICARE [facility] MEDICARE SUPPLEMENT Advance Directives For more information, please contact: [phone] * Full Code (Latest Code Status on File) Date Activated Date Inactivated Comments 06/05/2022 2:49 PM 06/16/2022 5:28 PM Care Teams Flowers Salesperson Relationship Specialty Start Date End Date Leticia Handley MD [address] [place] [address] PCP - General Internal Medicine 05/08/23
--- OUTSIDE RECORDS SUMMARY | 2024-10-03 12:03 | XMS_ITS ---
Author Organization [facility] Address [address] [place], [place] [address] Care Team Providers Care Production Maintenance Technician Name Role Phone ANASTASIIA ORNELAS Unavailable [phone] Estela Handley Unavailable Unavailable OPAL ROBISON Unavailable [phone] REASON FOR VISIT *General care Medications Medication SIG (Take, Route, Frequency, Duration) Notes Start Date End Date Status Aspirin 81 MG 1 tablet Orally Once a day Active Vital Signs Height 66.00 in 09/25/2024 Weight 200 lbs 09/25/2024 BMI 32.28 kg/m2 09/25/2024 Height-cm 167.64 cm 09/25/2024 Weight-kg 90.72 kg 09/25/2024 Encounters Encounter Location Date Provider Diagnosis [address] [id number] 09/25/2024 OPAL ROBISON Tinea unguium B35.1 ; Pain in right foot M79.671 ; Pain in left foot M79.672 ; Atherosclerosis of [place] arteries of extremities with intermittent [...] foot (ICD-10 - M79.672) 09/25/2024 Atherosclerosis of [place] arteries of extremities with intermittent [...] develop. Provider Name:OPAL GUZMAN, 12/04/2024 02:30:00 PM, [address] [place] [address], [id number], Progress Notes * KATIE CRUZDOB:1940 (83 yo M)Acc No.[id number]:09/25/2024 Patient: KATIE HOGAN Provider: Royer ROBISON :1940 A ge:83 Y S ex:Male Date:09/25/2024 Address: [place] [address] Subjective: * Chief Complaints: * 1 . [...] Patient denies c hest pain, history of HI, irregular heartbeat. M usculoskeletal: Patient complains of [...] - M79.672 4 . A therosclerosis of [place] arteries of extremities with intermittent [...] Electronic signature of BRIGHT ROBISON DPM on 10/03/2024 at 12:03 PM CDT Sign off status: Pending * Provider: Royer ROBISON Date: 0 09/25/2024 Generated for Joseph Fisher on: 0 10/03/2024 12:03 PM CDT History and Physical Notes * [...]
--- OUTSIDE RECORDS SUMMARY | 2024-10-03 12:03 | XMS_ITS ---
Author Organization [facility] Address [address] [place], [place] [address] Care Team Providers Care Boom Conveyor Operator Name Role Phone ANASTASIIA ORNELAS Unavailable [phone] Estela Handley Unavailable Unavailable REASON FOR VISIT Patient presents for at-risk foot care . The patient has painful toenails and calluses that are causing difficulty with ambulation and shoegear. The onset is gradual Encounters Encounter Location Date Provider Diagnosis [address] [id number] 07/24/2024 ANASTASIIA ORNELAS Tinea unguium B35.1 ; Pain in right foot M79.671 ; Pain in left foot M79.672 ; Atherosclerosis of [place] arteries of extremities with intermittent claudication, bilateral [...] foot (ICD-10 - M79.672) 07/24/2024 Atherosclerosis of [place] arteries of extremities with intermittent claudication, bilateral [...] develop. Provider Name:OPAL GUZMAN, 12/04/2024 02:30:00 PM, [address] [place] [address], [id number], Progress Notes * KATIE CRUZDOB:1940 (83 yo M)Acc No.[id number]:07/24/2024 Patient: KATIE HOGAN Provider: Whitney Ornelas DPM :1940 A ge:83 Y S ex:Male Date:07/24/2024 Address:[address] [place] [address] Subjective: * Chief Complaints: * 1 . [...] seen by Dr. Handley was 06/2024., Initials [facility]. * Medical History: Objective: * Vitals: [...] - M79.672 4 . A therosclerosis of [place] arteries of extremities with intermittent claudication, bilateral [...] 1055 TRIM SKIN LESION, Modifiers: Q8 , 47056 DEBRIDE NAIL, 6 OR MORE, Modifiers: 59 , Q8 * Follow Up: 1 0 - 12 weeks (Reason: At-Risk Foot care, sooner if problems develop.) * Billing Information: * Visit Code: * Procedure Codes: 06065 TRIM SKIN LESION. Modifiers: Q8 57812 DEBRIDE NAIL, 6 OR MORE. Modifiers: 59, Q8 * Electronic signature of ANASTASIIA ORNELAS DPM on 10/03/2024 at 12:02 PM CDT Sign off status: Pending * Provider: Whitney Ornelas DPM Date: 0 07/24/2024 Generated for Joseph jang/Triny/Danielitting on: 0 10/03/2024 12:02 PM CDT History and Physical Notes * [...]
--- OUTSIDE RECORDS SUMMARY | 2024-10-03 12:03 | XMS_ITS | Clinical Summary ---
Author Organization [facility] Address [address] [place] [address] Care Team Providers Care Zone Supervisor Firearms Name Role Phone Leticia Handley MD Primary Care Provider [phone] Nilesh Mojica DO Unavailable [phone] Enoc Sheridan PA-C Unavailable [phone] Source Comments [facility],non-owned Affiliates and Associated Physician Practices is amultiple site organization consisting of ambulatory clinics and hospital sitesin [place], [place], [place] and [place]. This disclosure is being madepursuant to the Care Everywhere program and may not contain all information available regarding this patient. 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 Office Visit [facility] Health Orthopedics [address], [address] [address] Nilesh Mojica DO [address] [address] Health Maintenance Due Date Last [...] this topic Medical Devices Implanted Type Area Viscosity Tester Device Identifier Shelf Expiration Date Model / Serial / Lot Stem Tlr Inbone Ii 1 Lg 10mm Ankl Implanted:Qty : 1 on 03/08/2017 by Nilesh Mojica DO at [facility] [place][note 2] Left: Ankle Zagster 12/07/2023 [id number] / / [id number] 4 Long Tibial Tray Implanted:Qty : 1 on 03/08/2017 by Nilesh Mojica DO at [facility] [place][note 2] Left: Ankle Zagster 01/09/2025 [id number] / / [id number] Cmpnt Tlr Inbone 3 Dome Ankl Sulcus Implanted:Qty : 1 on 03/08/2017 by Nilesh Mojica DO at [facility] [place][note 2] Left: Ankle Zagster 12/09/2024 [id number] / / [id number] Infinity Poly Insert Implanted:Qty : 1 on 03/08/2017 by Nilesh Mojica DO at [facility] [place][note 2] Left: Ankle Zagster 10/22/2024 [id number] / / [id number] Screw Qckfix Kyler Canc 4.0 X 46 Implanted:Qty : 1 on 03/08/2017 by Nilesh Mojica DO at [facility] [place][note 2] Left: Ankle Arthrex Inc [id number] / / Plate 61mm 3 Hl Hk Lck Ss Ft/Ankl Mdl Implanted:Qty : 1 on 03/08/2017 by Nilesh Mojica DO at [facility] [place][note 2] Left: Ankle Arthrex Inc AR-8943H-[id number] / / Screw 3.5mm 38mm T15 Hexalobe Ft Ankl Implanted:Qty : 1 on 03/08/2017 by Nilesh Mojica DO at [facility] [place][note 2] Left: Ankle Arthrex Inc AR-8835-38 / / Graft Bone Othblst Ii Dbm Canc 1cc Alg - [id number] Implanted:Qty : 1 on 03/08/2017 by Nilesh Mojica DO at [facility] [place][note 2] Left: Ankle Integra Neurosciences 01/01/2019 / [id number] / [id number] Explanted Type Area Viscosity Tester Device Identifier Shelf Expiration Date Model / Serial / Lot Jonathan Total Ank Replacement Explanted:Qty: 1 on 03/08/2017 at [facility] [place][note 2] Left: Ankle [employer] TOTAL ANKLE REPL MORE / / Screw Qckfix Kyler Canc 4.0 X 46 Explanted:Qty: 1 on 03/08/2017 by Nilesh Mojica DO at [facility] [place][note 2] Left: Ankle Arthrex Inc AR-8740-46 PTS / / Insurance MEDICARE MEDICARE SUPPLEMENT [facility] Advance Directives Documents on File Type Date Recorded Patient Training Development Manager Expl anation Adv Directive/Living Will/POA 03/12/2017 8:08 PM * Full Code (Latest Code Status on File) Date Activated Date Inactivated Comments 03/08/2017 12:28 PM 03/09/2017 4:41 PM Care Teams Zone Supervisor Firearms Relationship Specialty Start Date End Date Leticia Handley MD PCP - General Internal Medicine 12/06/16 Nilesh Mojica DO Orthopedic Surgery 12/06/16 Enoc Sheridan, PAMonieC [address] [place] [address] Physician Bag Checker Physician Bag Checker 03/13/17
--- OUTSIDE RECORDS SUMMARY | 2024-10-03 12:03 | XMS_ITS | Encounter Summary ---
Author Organization [facility] Address [address] [place] [address] Care Team Providers Care Manager Custom Name Role Phone Leticia Handley MD Primary Care Provider + [phone] Karrie Mcgregor DO Primary Care Provide r Leticia Handley MD Primary Care Provider + [phone] Encounter Details Date Type Department Care Team (Late st Contact Info) Description 04/22/2019 Telephone [facility] Radiology [address] [place] [address] Steff Shah, RT Social History Tobacco Use Types Packs/Day Years Used Date Smoking Tobacco: Never Smokeless Tobacco: Never Alcohol Use Standard Drinks/Week Comments Yes 0 (1 standard drink = 0.6 oz pur e alcohol) Sex and Gender Information Value Date Recorded Sex Assigned at Not on file Legal Sex Male 12:29 AM SKIAGRAPHER Gender Identity Not on file Sexual Orientation Not on file documented as of this encounter Plan of Treatment Not on file documented as of this encounter Visit Diagnoses Not on filedocumented in this encounter Care Teams Manager Custom Relationship Specialty Start Date End Date Leticia Handley MD [address] [place] [address] PCP - General 08/11/16 03/21/23 Karrie Mcgregor DO [address] [place] [address] PCP - General Psychiatry 03/22/23 05/07/23 Leticia Handley MD [address] [place] [address] PCP - General Internal Medicine 05/08/23 documented as of this encounter
[2024-10-03 12:10] VITALS: BMI 29.6
[2024-10-03 12:15] VITALS: BP 131/77; PULSE 67; RESP 16; TEMP 37.1; O2SAT 97
[2024-10-03] MEDS: IRON SUCROSE COMPLEX 300 MG in SODIUM CHLORIDE 0.9% IV 250 ML 125 MG IVPB (12:20)
[2024-10-03 14:25] VITALS: BP 126/59; PULSE 68; RESP 16; O2SAT 97
--- NOTE | 2024-10-03 14:36 | PC.NURSE ---
Tolerated #2 of 2 Venofer infusions well. SEE MAR/patient care notes.
== END 2024-10-03 11:59 | disposition home or self-care (01) ==
PROVIDERS: PCP Internal Medicine; Visit Provider Internal Medicine
DX: D50.9 Iron deficiency anemia, unspecified (principal)
CPT/HCPCS: 96365; 96366; J1756; J7050

== ENCOUNTER 2024-10-17 06:49 | Outpatient (CLI) | payer MEDICARE, SELFPAY ==
--- OUTSIDE RECORDS SUMMARY | 2024-10-17 06:54 | XMS_ITS | Referral Summary ---
Author Organization [facility] [place] [address] Address [address] [place] [address] Care Team Providers Care Life Agent Name Role Phone Leticia Handley MD Primary Care Provider Encounters Date Type Department Care Team Description 10/10/2024 2:00 PM CDT Ancillary Procedure [facility] Medical Group Cardiology at [address] [place] [address] Coronary artery disease involving hoonah coronary artery of hoonah heart without angina pectoris; S/P aortic valve replacement with bioprosthetic valve 09/23/2024 3:00 PM CDT Ancillary Procedure [facility] Cardiology at [address] [place] [address] Postoperative atrial fibrillation (HCC) 09/23/2024 2:30 PM CDT Office Visit [facility] Medical Group Cardiology at [address] [place] [address] Forrest Brown MD Coronary artery disease involving hoonah coronary artery of hoonah heart without angina pectoris (Primary Dx); Chronic heart failure with preserved ejection fraction (HFpEF) (HCC); Postoperative atrial fibrillation (HCC); S/P aortic valve replacement with bioprosthetic valve; YANET on CPAP; Chronic anticoagulation 09/09/2024 Orders Only [facility] Movement Disorders [address] 6th [place] [address] [place] [address] Isiah Brown MD PhD Sialorrhea 09/09/2024 Telephone [facility] Movement Disorders [address] [place] [phone] Charlette Arias RN 09/09/2024 11:15 AM CDT Procedure visit [facility] Movement Disorders [address] [place] [address] [place] [phone] Isiah Brown MD PhD Sialorrhea (Primary Dx); Parkinson's disease without dyskinesia or fluctuating manifestations (HCC) 09/02/2024 Telephone [facility] Movement Disorders [address] [place] [phone] Zelda Negron RN 08/20/2024 Orders Only [facility] Movement Disorders [address] [place] [phone] Isiah Brown MD PhD Sialorrhea (Primary Dx) 08/13/2024 Telephone [facility] Movement Disorders [address] [place] [phone] Zelda Negron RN 08/12/2024 1:30 PM CDT Office Visit [facility] Movement Disorders [address] [place] [phone] Isiah Brown MD PhD Parkinson's disease without [...] 1 tablet (75 mcg total) by mouth application specialist before breakfast 30 tablet 1 06/17/19 [...] DAY 90 tablet 1 05/06/20 23 Active pramipexole (MIRAPEX) 1 mg tablet Take 3 tablets (3 mg total) by mouth 3 (three) times a day 810 tablet 3 01/30/20 24 Active rasagiline (AZILECT) 0.5 mg tabletIndicatio [...] tid 405 tablet 3 10/03/[address] (PROTONIX) 40 mg EC tablet TAKE 1 TABLET BY MOUTH EVERY DAY 90 tablet 3 10/07/19 25 Active potassium chloride ER 10 mEq CR tablet TAKE 1 TABLET/CAPSULE (10 MEQ TOTAL) BY MOUTH DAILY 90 tablet 2 10/16/[address] (PROTONIX) 40 mg EC tablet TAKE 1 TABLET BY MOUTH EVERY DAY 90 tablet 3 10/15/19 24 2024 Discontinued carbidopa-levod opa (SINEMET) 25-100 mg per tabletIndicatio ns:Parkinsonism Take 1 tablet by mouth 3 (three) times a day 270 tablet 3 01/02/20 24 2024 Discontinued potassium chloride ER 10 mEq CR tablet TAKE 1 TABLET/CAPSULE (10 MEQ TOTAL) BY MOUTH DAILY 90 tablet 2 02/04/20 24 2024 Discontinued rivaroxaban (XARELTO) 20 mg tablet Take 1 tablet (20 mg total) by mouth daily with dinner 30 tablet 2 02/26/20 24 2024 Discontinued(T herapy completed) Hospital, Clinic, or Other Facility Administered Medication Ordered Dose Route Frequency Start Date End Date Status onabotulinumtoxin A (BOTOX) injection 100 UnitsIndications:Rita lorrhea 100 Units IM Once for Clinic-Administer ed Medication 12/16/2024 12/15/2025 Active Active Problems Problem Noted Date Diagnosed [...] we should send an updated script to [facility] in 2-3 weeks) -start glycopyrrolate 1mg TID for sialorrhea -if ineffective consider Botox injections Assessment & Plan (03/12/2024 1:31 PM HEAT PUMP INSTALLER): 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 [...] placement 11/29/2016 Coronary artery disease invo lving hoonah coronary artery of hoon[place] heart without angina pectoris 08/14/2016 Overview (09/29/2016): Coronary artery disease involving hoonah coronary artery of hoonah heart with other form of angina pectoris [...] relatives? Three times a week 06/06/2022 Attends [employer] Services Not on file 06/06 Active Member [...] place to sleep or slept in a residential (including now)? No 06/06/2022 Personal Safety Answer Date Recorded Getting School Help Needed Denies 05/05 Sex and Gender Information Value Date Recorded Sex Assigned at Not on file Legal Sex Male 12:29 AM HEAT PUMP INSTALLER Gender Identity Not on file Sexual Orientation Not on file Last Filed Vital Signs Vital Sign Reading Time Taken Comments Blood Pressure 118/66 09/23/2024 1:55 PM CDT Pulse 71 09/23/2024 1:55 PM CDT Temperature 36.8 C (98.2 F) 08/12/2024 12:47 PM CDT Respiratory Rate 18 04/10/2024 2:18 PM HEAT PUMP INSTALLER Oxygen Saturation 95% 09/23/2024 1:55 PM CDT Inhaled Oxygen Concentration - - Weight 80.7 kg (178 lb) 09/23/2024 1:55 PM CDT Height 165.1 cm (5' 5) 09/23/2024 1:55 PM CDT Body Mass Index 29.62 09/23/2024 1:55 PM CDT Plan of Treatment Not on file Medical Devices Implanted Type Area Job Press Feeder Device Identifier Shelf Expiration Date Model / Serial / Lot [employer] Medical Plate Bone Low Profile 6 Hole H Shape Ti 115.102.06 - [id number] Implanted:Qty: 1 on 06/05/2022 by Nicolás Arevalo MD at [facility] Plate N/A: Sternum [employer] 115.102. 06 / / Zig[employer] Medical Plate Bone Low Profile 4 Hole Box Ti 115.103.04 - [id number] Implanted:Qty: 1 on 06/05/2022 by Nicolás Arevalo MD at [facility] Plate N/A: Sternum [employer] 115.103. 04 / / [employer]ig[employer] Medical Plate Bone Low Profile 6 Hole O Concave Ti 115.604.06 - [id number] Implanted:Qty: 1 on 06/05/2022 by Nicolás Arevalo MD at [facility] Plate N/A: Sternum [employer] 115.604. 06 / / [employer] Von-Tim ds Perimount Magna Ease 23mm Bioprosthesis [id number] - [id number] - [id number] Implanted:Qty: 1 on 06/05/2022 by Nicolás Arevalo MD at [facility] Prosthetic Valve N/A: Heart [employer] 07/18/2024 [id number] / [id number] / Z[employer] Medical Screw Bone Slf Drl Full Thread Locking 3.5x14mm Ti 100.035.14 - [id number] Implanted:Qty: 10 on 06/05/2022 by Nicolás Arevalo MD at [facility] Screw N/A: Sternum [employer] 100.035. 14 / / Z[employer] Screw Bone Slf Drl Full Thread Locking 3.5x16mm Ti 100.035.16 - [id number] Implanted:Qty: 6 on 06/05/2022 by Nicolás Arevalo MD at [facility] Screw N/A: Sternum [employer] 100.035. 16 / / Procedures Procedure Name Priority Date/Time Associated Diagnosis Comments TRANSTHORACIC ECHO (TTE) COMPLETE W DOPPLER/CF W CONTRAST Routine 10/10/2024 2:56 PM CDT Coronary artery disease involving hoonah coronary artery of hoonah heart without angina pectoris S/P aortic valve replacement with bioprosthetic valve POCT LIPID PANEL Routine 08/02/2023 10:2 9 AM CDT Coronary artery disease involving hoonah coronary artery of hoonah heart without angina pectoris EGFR Routine 06/16/2022 10:03 AM HEAT PUMP INSTALLER HEMOGLOBIN A1C Routine 05/30/2022 12:59 PM HEAT PUMP INSTALLER Preop testing Type 2 diabetes mellitus with other specified complication, without long-term current use of insulin (HCC) from Last 3 Months or Most Recently Relevant to Health Maintenance Results * TRANSTHORACIC ECHO (TTE) COMPLETE W DOPPLER/CF W CONTRAST (10/10/2024 2:56 PM CDT) Estimated EF 65-70 % CONS SCIMAGE EF Mod BP 70 % CONS SCIMAGE Anatomical Region Laterality Modality Ultrasound 10/10/2024 2:00 PM CDT Narrative 10/10/2024 4:31 PM CDT [facility] Medical Group Cardiology [address], [address], [place] [address] P:[phone] P:[phone] Echocardiographic Report ADDENDUM Patient Name: ALLI EAGLE H : 1940 Study Date: 10/10/2024 2:00:09 PM Gender: M Tech: SW Location: [facility] Ref Provider: FORREST BROWN Height(Cm): 165 BSA: 1.92 Weight(Kg): 80.7 Heart Rate: 58 BP: 118 / 66 Quality: Good Order Provider: FORREST BROWN PROCEDURES: Echocardiographic Report: Transthoracic echocardiogram with complete 2D, M-Mode, color Doppler examination and Definity contrast. INDICATIONS: Bioprosthetic Aortic Valve Replacement and I25.10 Atherosclerotic heart disease of hoonah coronary artery without angina pectoris. MEASUREMENTS: 2D/MM Value Range Doppler Value Range EF Mod BP 70 % [ 52 - 72 ] JOHNSON Vmax 2.06 cm2 [ 2.00 - 4.00 ] EF Teich MM 56 % [ 52 - 72 ] AV Mean PG 9 mmHg Estimated EF 65-70 % AV Peak Guillermo 2.14 m/s [ 1.00 - 1.70 ] LVIDd 2D 4.55 cm [ 4.20 - 5.80 ] AV Peak PG 18 mmHg LVIDd MM 6.45 cm [ 4.20 - 5.80 ] AV VTI 47.20 cm LVIDs 2D 3.07 cm [ 2.50 - 4.00 ] LVOT Diam 2.01 cm [ 1.70 - 2.10 ] LVIDs MM 4.51 cm [ 2.50 - 4.00 ] LVOT Peak Guillermo 1.05 m/s [ 0.70 - 1.10 ] LVPWd 2D 1.23 cm [ 0.60 - 1.00 ] LVOT VTI 27.19 cm LVPWd MM 0.97 cm [ 0.60 - 1.00 ] MV E Peak Guillermo 1.25 m/s [ 0.60 - 1.30 ] IVSd 2D 0.97 cm [ 0.60 - 1.00 ] MV A Peak Guillermo 1.04 m/s [ 1.00 - 1.20 ] IVSd MM 1.08 cm [ 0.60 - 1.00 ] MV Decel Time 301 msec [ 104 - 258 ] LA Dimension MM 3.21 cm [ 3.00 - 4.00 ] TR Peak Guillermo 2.60 m/s [ 1.00 - 2.80 ] AoR Diam MM 2.27 cm [ 3.10 - 3.70 ] TR Peak PG 27 mmHg LA Volume Index 61 cc/m2 [ 16 - 34 ] RVSP 35.00 mmHg [ 10.00 - 36.00 ] Lateral E` 0.09 m/s [ 0.10 - 0.15 ] E/E` 14 2D/MM Value Range Doppler Value Range - FINDINGS: Interpretation Site: Exam was interpreted at [facility]. Left Ventricle: Normal left ventricular systolic function. No focal wall motion abnormalities. Normal left ventricular size. Definity contrast agent used to visually enhance endocardial wall motion and contractility. Mild concentric left ventricular hypertrophy. Normal left ventricular diastolic function. Ejection fraction is measured at 70 %. Ejection Fraction is visually estimated to be 65-70 %. Right Ventricle: Normal right ventricular size. Normal right ventricular systolic function. Left Atrium: The left atrium is normal in size. Right Atrium: The right atrium is normal in size. Atrial Septum: Normal atrial septum. Mitral Valve: Mitral valve leaflets appear mildly thickened. Mild mitral annular calcification. Mild mitral valve regurgitation. There is no hemodynamically significant mitral stenosis by Doppler. Aortic Valve: Aortic valve not well visualized. No evidence of hemodynamically significant aortic stenosis by Doppler. Peak Velocity of 2.14 m/s. Peak gradient of 18.0 mmHg. Mean gradient of 9.0 mmHg. Valve area of 2.1 cm2. Trace aortic valve regurgitation. Gradients normal for valve type and size. Tricuspid Valve: Normal appearance of the tricuspid valve. Normal right ventricular systolic pressure. Estimated peak RVSP is 30-35 mmHg. Mild tricuspid regurgitation. Pulmonic Valve: Normal appearance of the pulmonic valve. No pulmonic stenosis. Trivial regurgitation in the pulmonic valve. Pericardium: Normal pericardium with no significant pericardial effusion. Aorta: No aortic root dilation. IVC: Normal size and normal respiratory collapse consistent with normal right atrial pressure (<5 mmHg). CONCLUSIONS: Normal left ventricular systolic function. No focal wall motion abnormalities. Normal left ventricular size. Mild concentric left ventricular hypertrophy. Normal left ventricular diastolic function. Ejection fraction is measured at 70 %. Ejection Fraction is visually estimated to be 65-70 %. Mitral valve leaflets appear mildly thickened. Mild mitral annular calcification. Mild mitral valve regurgitation. Aortic valve not well visualized. No evidence of hemodynamically significant aortic stenosis by Doppler. Peak Velocity of 2.14 m/s. Peak gradient of 18.0 mmHg. Mean gradient of 9.0 mmHg. Valve area of 2.1 cm2. Trace aortic valve regurgitation. Gradients normal for valve type and size. Mild tricuspid regurgitation. Normal sinus rhythm. Electronically Signed By: Forrest Brown MD 2024-10-10 16:30:26 CDT Electronically Amended By: Forrest Brown MD 10/13/2024 1:27:10 PM CDT [ADDENDUM] Procedure Note Forrest Brown MD - 10/13/2024 [facility] Medical Group Cardiology [facility], [address] [address] P:[phone] P:[phone] Echocardiographic Report ADDENDUM Patient Name: ALLI EAGLE H : 1940 Study Date: 10/10/2024 2:00:09 PM Gender: M Tech: Location: [facility] Ref Provider: FORREST BROWN Height(Cm): 165 BSA: 1.92 Weight(Kg): 80.7 Heart Rate: 58 BP: 118 / 66 Quality: Good Order Provider: FORREST BROWN PROCEDURES: Echocardiographic Report: Transthoracic echocardiogram with complete 2D, M-Mode, color Dopplerexamination and Definity contrast. INDICATIONS: Bioprosthetic Aortic Valve Replacement and I25.10 Atherosclerotic heartdisease of hoonah coronary artery without angina pectoris. MEASUREMENTS: 2D/MM Value Range Doppler ValueRange EF Mod BP 70 % [ 52 - 72 ] JOHNSON Vmax 2.06cm2 [ 2.00 - 4.00 ] EF Teich MM 56 % [ 52 - 72 ] AV Mean PG 9mmHg Estimated EF 65-70 % AV Peak Guillermo 2.14m/s [ 1.00 - 1.70 ] LVIDd 2D 4.55 cm [ 4.20 - 5.80 ] AV Peak PG 18mmHg LVIDd MM 6.45 cm [ 4.20 - 5.80 ] AV VTI 47.20cm LVIDs 2D 3.07 cm [ 2.50 - 4.00 ] LVOT Diam 2.01 cm[ 1.70 - 2.10 ] LVIDs MM 4.51 cm [ 2.50 - 4.00 ] LVOT Peak Guillermo 1.05m/s [ 0.70 - 1.10 ] LVPWd 2D 1.23 cm [ 0.60 - 1.00 ] LVOT VTI 27.19cm LVPWd MM 0.97 cm [ 0.60 - 1.00 ] MV E Peak Guillermo 1.25m/s [ 0.60 - 1.30 ] IVSd 2D 0.97 cm [ 0.60 - 1.00 ] MV A Peak Guillermo 1.04m/s [ 1.00 - 1.20 ] IVSd MM 1.08 cm [ 0.60 - 1.00 ] MV Decel Time 301msec [ 104 - 258 ] LA Dimension MM 3.21 cm [ 3.00 - 4.00 ] TR Peak Guillermo 2.60m/s [ 1.00 - 2.80 ] AoR Diam MM 2.27 cm [ 3.10 - 3.70 ] TR Peak PG 27mmHg LA Volume Index 61 cc/m2 [ 16 - 34 ] RVSP 35.00mmHg [ 10.00 - 36.00 ] Lateral E` 0.09 m/s [ 0.10 - 0.15 ] E/E` 14 2D/MM Value Range Doppler ValueRange - FINDINGS: Interpretation Site: Exam was interpreted at [facility]. Left Ventricle: Normal left ventricular systolic function. No focal wall motionabnormalities. Normal left ventricular size. Definity contrast agent used to visually enhanceendocardial wall motion and contractility. Mild concentric left ventricular hypertrophy.Normal left ventricular diastolic function. Ejection fraction is measured at 70 %.Ejection Fraction is visually estimated to be 65-70 %. Right Ventricle: Normal right ventricular size. Normal right ventricular systolicfunction. Left Atrium: The left atrium is normal in size. Right Atrium: The right atrium is normal in size. Atrial Septum: Normal atrial septum. Mitral Valve: Mitral valve leaflets appear mildly thickened. Mild mitral annularcalcification. Mild mitral valve regurgitation. There is no hemodynamically significant mitralstenosis by Doppler. Aortic Valve: Aortic valve not well visualized. No evidence of hemodynamicallysignificant aortic stenosis by Doppler. Peak Velocity of 2.14 m/s. Peak gradient of 18.0mmHg. Mean gradient of 9.0 mmHg. Valve area of 2.1 cm2. Trace aortic valve regurgitation.Gradients normal for valve type and size. Tricuspid Valve: Normal appearance of the tricuspid valve. Normal right ventricularsystolic pressure. Estimated peak RVSP is 30-35 mmHg. Mild tricuspid regurgitation. Pulmonic Valve: Normal appearance of the pulmonic valve. No pulmonic stenosis. Trivialregurgitation in the pulmonic valve. Pericardium: Normal pericardium with no significant pericardial effusion. Aorta: No aortic root dilation. IVC: Normal size and normal respiratory collapse consistent with normal rightatrial pressure (<5 mmHg). CONCLUSIONS: Normal left ventricular systolic function. No focal wall motionabnormalities. Normal left ventricular size. Mild concentric left ventricular hypertrophy.Normal left ventricular diastolic function. Ejection fraction is measured at 70 %.Ejection Fraction is visually estimated to be 65-70 %. Mitral valve leaflets appear mildly thickened. Mild mitral annularcalcification. Mild mitral valve regurgitation. Aortic valve not well visualized. No evidence of hemodynamicallysignificant aortic stenosis by Doppler. Peak Velocity of 2.14 m/s. Peak gradient of 18.0mmHg. Mean gradient of 9.0 mmHg. Valve area of 2.1 cm2. Trace aortic valve regurgitation.Gradients normal for valve type and size. Mild tricuspid regurgitation. Normal sinus rhythm. Electronically Signed By: Forrest Brown MD 2024-10-10 16:30:26 CDT Electronically Amended By: Forrest Brown MD 10/13/2024 1:27:10 PM CDT [ADDENDUM] us Forrest Brown MD CV ECHO PROCEDURES Edited Result - Final * POCT lipid panel (08/02/2023 10:29 AM CDT) Pathologist [facility] Cholesterol, POC <100 mg/dL Comment:GLU = 133 HDL, POC <15 mg/dL Triglycerides, POC 70 mg/dL LDL Cholesterol POC 71 mg/dL Chol/HDL Ratio, POC N/A Non-HDL Cholesterol, POC N/A mg/dL Cholesterol Total, POC <100 mg/dL Capillary blood 08/02/2023 1 0:29 AM CDT Rosales Watt MD POINT OF CARE TEST ORDER CHANEL Final Result * eGFR (06/16/2022 10:03 AM HEAT PUMP INSTALLER) [facility] eGFR 67 mL/min/1. 73 m2 RYAN LUX [...] reviewed 2021. Blood 06/16/2022 10:0 3 AM HEAT PUMP INSTALLER 06/16/2022 10:03 AM HEAT PUMP INSTALLER Nicolás Arevalo MD LAB BLOOD ORDERABLES Final Res ult RYAN LUX [id number] [address] Cintron [place] [address] * Hemoglobin A1c (05/30/2022 12:59 PM HEAT PUMP INSTALLER) Hgb A1C 5.5 4.0 - 5.6 % RYAN LUX Estimated Average Glucose 111 mg/dL RYAN LUX Comment: The ADA recommends reporting an estimated Average Glucose (eAG) with all Hemoglobin A1c results using the equation derived from a study of 507 normal and diabetic adults. Minority populations were underrepresented and children were not included. (Diabetes Care 31:9124-9384, 2007). The eAG is not equivalent to a fasting glucose. Blood 05/30/2022 12:5 9 PM HEAT PUMP INSTALLER 05/30/2022 1:03 PM HEAT PUMP INSTALLER us Nicolás Arevalo MD LAB BLOOD ORDERABLES Final Res ult RYAN LUX [id number] [address] Department [place] [address] from Last 3 Months or Most Recently Relevant to Health Maintenance Insurance [facility] MEDICARE SUPPLEMENT INSURANCE MEDICARE [facility] MEDICARE SUPPLEMENT MEDICARE [facility] MEDICARE SUPPLEMENT Advance Directives For more information, please contact: [phone] * Full Code (Latest Code Status on File) Date Activated Date Inactivated Comments 06/05/2022 2:49 PM 06/16/2022 5:28 PM Care Teams Life Agent Relationship Specialty Start Date End Date Leticia Handley MD [address] [place] [address] PCP - General Internal Medicine 05/08/23
--- OUTSIDE RECORDS SUMMARY | 2024-10-17 06:54 | XMS_ITS | Patient Health Record ---
Author Organization [facility] Address [address] [place], [place] [id number] Care Team Providers Care Motor Vehicle Inspector Name Role Phone ANASTASIIA ORNELAS Unavailable [phone] Estela Handley Unavailable Unavailable CARLOS STEVE Unavailable [phone] OPAL ROBISON Unavailable [phone] Allergies No Known Allergies Reason For Referral [...] 09/25/2024 Encounters Encounter Location Date Provider Diagnosis [address] [id number] 09/25/2024 OPAL ROBISON Tinea unguium B35.1 ; Pain in right foot M79.671 ; Pain in left foot M79.672 ; Atherosclerosis of [place] arteries of extremities with intermittent claudication, bilateral legs I70.213 and Acquired keratosis [keratoderma] palmaris et plantaris L85.[address] [id number] 11/29/2023 CARLOS STEVE Other hammer toe(s) (acquired), right foot M20.41 ; Tinea unguium B35.1 ; Other hammer toe(s) (acquired), left foot M20.42 ; Pain in right toe(s) M79.674 ; Pain in left toe(s) M79.675 ; Pain in right foot M79.671 ; Pain in left foot M79.672 ; 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[place] arteries of extremities, bilateral legs I70.203 and Acquired keratosis [keratoderma] palmaris et plantaris L85.[address] [id number] 01/31/2024 CARLOS POWER Other hammer toe(s) (acquired), right foot M20.41 ; Tinea unguium B35.1 ; Other hammer toe(s) (acquired), left foot M20.42 ; Pain in right toe(s) M79.674 ; Pain in left toe(s) M79.675 ; Pain in right foot M79.671 ; Pain in left foot M79.672 ; 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[place] arteries of extremities, bilateral legs I70.203 and Acquired keratosis [keratoderma] palmaris et plantaris L85.[address] [id number] 04/10/2024 CARLOS POWER Other hammer toe(s) (acquired), right foot M20.41 ; Tinea unguium B35.1 ; Other hammer toe(s) (acquired), left foot M20.42 ; Pain in right toe(s) M79.674 ; Pain in left toe(s) M79.675 ; Pain in right foot M79.671 ; Pain in left foot M79.672 ; 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[place] arteries of extremities, bilateral legs I70.203 and Acquired keratosis [keratoderma] palmaris et plantaris L85.[address] [id number] 05/22/2024 ANASTASIIA ORNELAS Tinea unguium B35.1 ; Pain in right foot M79.671 ; Pain in left foot M79.672 ; Atherosclerosis of [place] arteries of extremities with intermittent claudication, bilateral legs I70.213 and Acquired keratosis [keratoderma] palmaris et plantaris L85.[address] [place] [id number] 07/24/2024 ANASTASIIA ORNELAS Tinea unguium B35.1 ; Pain in right foot M79.671 ; Pain in left foot M79.672 ; Atherosclerosis of [place] arteries of extremities with intermittent claudication, bilateral [...] toe(s) (ICD-10 - M79.674) 07/24/2024 Atherosclerosis of [place] arteries of extremities with intermittent claudication, bilateral legs (ICD-10 - I70.213) 05/22/2024 Atherosclerosis of [place] arteries of extremities with intermittent claudication, bilateral legs (ICD-10 - I70.213) 04/10/2024 Pain in right toe(s) (ICD-10 - M79.674) 09/25/2024 Atherosclerosis of [place] arteries of extremities with intermittent claudication, bilateral [...] (ICD-10 - M79.672) 11/29/2023 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[place] arteries of extremities, bilateral legs (ICD-10 - I70.203) Patient educated on risks and aggravating factors of PVD, including conservative treatment options such as a diet and exercise regimen to aid in slowing progression of vascular disease 01/31/2024 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[place] arteries of extremities, bilateral legs (ICD-10 - I70.203) Patient educated on risks and aggravating factors of PVD, including conservative treatment options such as a diet and exercise regimen to aid in slowing progression of vascular disease 04/10/2024 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[place] arteries of extremities, bilateral legs (ICD-10 - [...] Details Provider Name:OPAL GUZMAN, 12/04/2024 02:30:00 PM, [address] [place] [address], [phone], Insurance Providers Payer Name Payer Address Payer Phone Subscriber Number Group Number Insured Name Patient Relationship to Insured Coverage Start Date Coverage End Date Medicare Part B [place] [address] [place] [id number] KATIE CRUZ Self - patient is the insured [facility] ([facility]) ATTN CLAIMS [address] [place] [address] [id number] KATIE CRUZ Self - patient is the insured 4 Medical (General) History Surgical History Surgery Date(Month/Year) Total ankle replacement 2014
--- OUTSIDE RECORDS SUMMARY | 2024-10-17 06:54 | XMS_ITS | Encounter Summary ---
Author Organization [facility] Address [address] [place] [address] Care Team Providers Care Air Carrier Maintenance Inspector Name Role Phone Leticia Handley MD Primary Care Provider [phone] Nilesh Mojica DO Unavailable Enoc Sheridan PA-C Unavailable [phone] Encounter Details Date Type Department Care Team (Late st Contact Info) Description 12/06/2016 [facility] Outpatient Visit [facility] Orthopedics - Radiology [address] [place] [address] [facility] Medical [address] [address] Social History Tobacco Use Types [...] st Contact Info) Description 03/09/2025 10:40 AM BRIM PRESSER Office Visit [facility] Health Orthopedics [address], [address] [address] Nilesh Mojica [address] [address] documented as of this encounter Visit Diagnoses Not on filedocumented in this encounter Care Teams Air Carrier Maintenance Inspector Relationship Specialty Start Date End Date Leticia Handley MD PCP - General Internal Medicine 12/06/16 Nilesh Mojica DO Orthopedic Surgery 12/06/16 Enoc Sheridan PA-C [address] [place] [address] Physician Automation Engineering Manager Physician Automation Engineering Manager 03/13/17 documented as of this encounter
--- OUTSIDE RECORDS SUMMARY | 2024-10-17 06:54 | XMS_ITS | Clinical Summary ---
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 [...] placement 11/29/2016 Coronary artery disease invo lving kaguy[place] coronary artery of [place] heart without angina pectoris 08/14/2016 Overview (09/29/2016): Coronary artery disease involving [place] coronary artery of [place] heart with other form of angina pectoris [...] Description 10/10/2024 2:00 PM CDT Ancillary Procedure [facility] Group Cardiology at [address] [place] [address] Coronary artery disease involving kag[place] coronary artery of [place] heart without angina pectoris; S/P aortic valve replacement with bioprosthetic valve 09/23/2024 3:00 PM CDT Ancillary Procedure [facility] Cardiology at [address] [place] [address] Postoperative atrial fibrillation (HCC) 09/23/2024 2:30 PM CDT Office Visit [facility] Cardiology at [address] [place] [address] Forrest Brown MD Coronary artery disease involving kaguy[place] coronary artery of [place] heart without angina pectoris (Primary Dx); Chronic heart failure with preserved ejection fraction (HFpEF) (HCC); Postoperative atrial fibrillation (HCC); S/P aortic valve replacement with bioprosthetic valve; YANET on CPAP; Chronic anticoagulation 09/09/2024 11:15 AM CDT Procedure visit [facility] Movement Disorders [facility] 6th [place] [address] Isiah Brown MD PhD Sialorrhea (Primary Dx); Parkinson's disease without dyskinesia or fluctuating manifestations (HCC) 09/09/2024 Orders Only [facility] Movement Disorders [facility] 6th [place] [address] [place] [address] Isiah Brown MD PhD Sialorrhea 09/09/2024 Telephone [facility] Movement Disorders [address] [address] Charlette Arias, BARRERA 09/02/2024 Telephone [facility] Movement Disorders [address] [place] [address] Zelda Negron RN 08/20/2024 Orders Only [facility] Movement Disorders [address] [place] [address] [place] [address] [place] [address] Isiah Brown MD PhD Sialorrhea (Primary Dx) 08/13/2024 Telephone [facility] Movement Disorders [address] [place] [address] Zelda Negron RN 08/12/2024 1:30 PM CDT Office Visit [facility] Movement Disorders [address] [place] [address] Isiah Brown MD PhD Parkinson's disease without [...] Hypertension Hypertension Adiposity Obesity Sleep apnea CPAP [place] (myocardial infarction) (HCC) 2014 CAD (coronary artery [...] relatives? Three times a week 06/06/2022 Attends [employer] Not on file 06/06 Active Member [...] place to sleep or slept in a skilled nursing (including now)? No 06/06/2022 Personal Safety Answer Date Recorded Getting School Help Needed Denies 05/05 Sex and Gender Information Value Date Recorded Sex Assigned at Not on file Legal Sex Male 12:29 AM SALES EXHIBITOR Gender Identity Not on file Sexual Orientation Not on file Obstetrics History Last Filed Vital Signs Vital Sign Reading Time Taken Comments Blood Pressure 118/66 09/23/2024 1:55 PM CDT Pulse 71 09/23/2024 1:55 PM CDT Temperature 36.8 C (98.2 F) 08/12/2024 12:47 PM CDT Respiratory Rate 18 04/10/2024 2:18 PM SALES EXHIBITOR Oxygen Saturation 95% 09/23/2024 1:55 PM CDT [...] 09/10/2012, 06/13/2004 Medical Devices Implanted Type Area Mailing Jogger Device Identifier Shelf Expiration Date Model / Serial / Lot Ziggy Medical Plate Bone Low Profile 6 Hole H Shape Ti 115.102.06 - [id number] Implanted:Qty: 1 on 06/05/2022 by Nicolás Arevalo MD at [facility] Plate N/A: Sternum [employer] 115.102. 06 / / Ziggy Medical Plate Bone Low Profile 4 Hole Box Ti 115.103.04 - [id number] Implanted:Qty: 1 on 06/05/2022 by Nicolás Arevalo MD at [facility] Plate N/A: Sternum [employer] 115.103. 04 / / Ziggy Medical Plate Bone Low Profile 6 Hole O Concave Ti 115.604.06 - [id number] Implanted:Qty: 1 on 06/05/2022 by Nicolás Arevalo MD at [facility] Plate N/A: Sternum [employer] 115.604. 06 / / Bhatti [employer] Priscila ds Perimount Magna Ease 23mm Bioprosthesis [id number] - [id number] - [id number] Implanted:Qty: 1 on 06/05/2022 by Nicolás Arevalo MD at [facility] Prosthetic Valve N/A: Heart [employer] 07/18/2024 [id number] / [id number] / Ziggy Medical Screw Bone Slf Drl Full Thread Locking 3.5x14mm Ti 100.035.14 - [id number] Implanted:Qty: 10 on 06/05/2022 by Nicolás Arevalo MD at [facility] Screw N/A: Sternum [employer] 100.035. 14 / / Ziggy Medical Screw Bone Slf Drl Full Thread Locking 3.5x16mm Ti 100.035.16 - [id number] Implanted:Qty: 6 on 06/05/2022 by Nicolás Arevalo MD at [facility] Screw N/A: Sternum [employer] 100.035. 16 / / Procedures Procedure Name Priority Date/Time Associated Diagnosis Comments TRANSTHORACIC ECHO (TTE) COMPLETE W DOPPLER/CF W CONTRAST Routine 10/10/2024 2:56 PM CDT Coronary artery disease involving kaguyuk coronary artery of kaguy[place] heart without angina pectoris S/P aortic valve replacement with bioprosthetic valve POCT LIPID PANEL Routine 08/02/2023 10:2 9 AM CDT Coronary artery disease involving kaguy[place] coronary artery of kaguy[place] heart without angina pectoris EGFR Routine 06/16/2022 10:03 AM SALES EXHIBITOR HEMOGLOBIN A1C Routine 05/30/2022 12:59 PM SALES EXHIBITOR Preop testing Type 2 diabetes mellitus with [...] PM CDT Narrative 10/10/2024 4:31 PM CDT [facility] Medical Group Cardiology [address], [address], [place] [address] P:[phone] P:[phone] Echocardiographic Report ADDENDUM Patient Name: ALLI EAGLE [...] Replacement and I25.10 Atherosclerotic heart disease of kaguy[place] coronary artery without angina pectoris. MEASUREMENTS: 2D/MM [...] Site: Exam was interpreted at [facility]. Left Ventricle: Normal left ventricular systolic [...] Procedure Note Forrest Brown MD - 10/13/2024 [facility] Medical Group Cardiology [facility], [address], [place] [address] P:[phone] P:[phone] Echocardiographic Report ADDENDUM Patient Name: ALLI EAGLE [...] Valve Replacement and I25.10 Atherosclerotic heartdisease of kaguyuk coronary artery without angina pectoris. MEASUREMENTS: 2D/MM [...] Site: Exam was interpreted at [facility]. Left Ventricle: Normal left ventricular systolic [...] Final Result * eGFR (06/16/2022 10:03 AM SALES EXHIBITOR) eGFR 67 mL/min/1. 73 m2 RYAN LUX [...] reviewed 2021. Blood 06/16/2022 10:0 3 AM SALES EXHIBITOR 06/16/2022 10:03 AM SALES EXHIBITOR Nicolás Arevalo MD LAB BLOOD ORDERABLES Final Res ult RYAN LUX [address] [place] [address] * Hemoglobin A1c (05/30/2022 12:59 PM SALES EXHIBITOR) Hgb A1C 5.5 4.0 - 5.6 % RYAN LUX Estimated Average Glucose 111 mg/dL RYAN LUX Comment: The ADA recommends reporting an estimated Average Glucose (eAG) with all Hemoglobin A1c results using the equation derived from a study of 507 normal and diabetic adults. Minority populations were underrepresented and children were not included. (Diabetes Care 31:0572-0601, 2008). The eAG is not equivalent to a fasting glucose. Blood 05/30/2022 12:5 9 PM SALES EXHIBITOR 05/30/2022 1:03 PM SALES EXHIBITOR us Nicolás Arevalo MD LAB BLOOD ORDERABLES Final Res ult RYAN [address] [address] Department [place] [address] from Last 3 Months or Most Recently Relevant to Health Maintenance Insurance MEDICARE [facility] MEDICARE SUPPLEMENT INSURANCE MEDICARE [facility] MEDICARE SUPPLEMENT MEDICARE [facility] MEDICARE SUPPLEMENT Advance Directives For more information, please contact: [phone] * Full Code (Latest Code Status on File) Date Activated Date Inactivated Comments 06/05/2022 2:49 PM 06/16/2022 5:28 PM Care Teams Food Sanitarian Relationship Specialty Start Date End Date Leticia Handley MD [address] [place], [place] [id number] PCP - General Internal Medicine 05/08/23
--- OUTSIDE RECORDS SUMMARY | 2024-10-17 06:55 | XMS_ITS | Encounter Summary ---
Author Organization [facility] Address [address] [place] [address] Care Team Providers Care City Routeman Name Role Phone Leticia Handley MD Primary Care Provider [phone] Karrie Mcgregor DO Primary Care Provide r Leticia Handley MD Primary Care Provider [phone] Encounter Details Date Type Department Care Team (Late st Contact Info) Description 08/15/2016 Orders Only [facility] ProviderNila MD [address] [place] [address] Social History Tobacco Use Types Packs/Day Years Used Date Smoking Tobacco: Never Alcohol Use Standard Drinks/Week Comments Yes 0 (1 standard drink = 0.6 oz pur e alcohol) Sex and Gender Information Value Date Recorded Sex Assigned at Not on file Legal Sex Male 12:29 AM OCCUPATIONAL THERAPIST AIDE Gender Identity Not on file Sexual Orientation [...] on filedocumented in this encounter Care Teams City Routeman Relationship Specialty Start Date End Date Leticia Handley MD [address] [place] [address] PCP - General 08/11/16 03/21/23 Karrie Mcgregor DO [address] [place] [address] PCP - General Psychiatry 03/22/23 05/07/23 Leticia Handley MD [address] [place] [address] PCP - General Internal Medicine 05/08/23 documented as of this encounter
--- OUTSIDE RECORDS SUMMARY | 2024-10-17 06:55 | XMS_ITS | Clinical Summary ---
Author Organization [facility] Address [address] [place] [address] Care Team Providers Care Plastic Press Molder Name Role Phone Leticia Handley MD Primary Care Provider [phone] Nilesh Mojica DO Unavailable [phone] Enoc Sheridan PA-C Unavailable [phone] Source Comments [facility],non-owned Affiliates and Associated Physician Practices is amultiple site organization consisting of ambulatory clinics and hospital sitesin [place], [place], [place] and [place]. This disclosure is being madepursuant to the Care Everywhere program and may not contain all information available regarding this patient. Last updated 18.[facility] [employer] Allergies No known active allergies Medications * [...] st Contact Info) Description 03/09/2025 10:40 AM INSPECTOR LINE Office Visit [facility] Health Orthopedics [address], [address] [address] Nilesh Mojica DO [address] [address] Health Maintenance Due Date Last [...] this topic Medical Devices Implanted Type Area Furnace Repairer Helper Device Identifier Shelf Expiration Date Model / Serial / Lot Stem Tlr Inbone Ii 1 Lg 10mm Ankl Implanted:Qty : 1 on 03/08/2017 by Nilesh Mojica DO at [facility] Left: Ankle Agile [employer] 12/07/2023 [id number] / / [id number] Long Tibial Tray Implanted:Qty : 1 on 03/08/2017 by Nilesh Mojica DO at [facility] Left: Ankle [employer] 01/09/2025 [id number] / / [id number] Cmpnt Tlr Inbone 3 Dome Ankl Sulcus Implanted:Qty : 1 on 03/08/2017 by Nilesh Mojica DO at [facility] Left: Ankle Agile [employer] 12/09/2024 [id number] / / [id number] Infinity Poly Insert Implanted:Qty : 1 on 03/08/2017 by Nilesh Mojica DO at [facility] Left: Ankle Ag[employer] 10/22/2024 [id number] / / [id number] Screw Qckfix Kyler Canc 4.0 X 46 Implanted:Qty : 1 on 03/08/2017 by Nilesh Mojica DO at [facility] Left: Ankle Ar[employer]rex [employer] [id number] / / Plate 61mm 3 Hl Hk Lck Ss Ft/Ankl Mdl Implanted:Qty : 1 on 03/08/2017 by Nilesh Mojica DO at [facility] Left: Ankle [employer] Inc [id number] / / Screw 3.5mm 38mm T15 Hexalobe Ft Ankl Implanted:Qty : 1 on 03/08/2017 by Nilesh Mojica DO at [facility] Left: Ankle [employer] Inc AR-[id number] / / Graft Bone Othblst Ii Dbm Canc 1cc Alg - [id number] Implanted:Qty : 1 on 03/08/2017 by Nilesh Mojica DO at [facility] Left: Ankle Integra [employer]iences 01/01/2019 / [id number] / [id number] Explanted Type Area Furnace Repairer Helper Device Identifier Shelf Expiration Date Model / Serial / Lot Jonathan Total Ank Replacement Explanted:Qty: 1 on 03/08/2017 at [facility] Left: Ankle [employer] Inc TOTAL ANKLE REPL MORE / / Screw Qckfix Kyler Canc 4.0 X 46 Explanted:Qty: 1 on 03/08/2017 by Nilesh Mojica DO at [facility] Left: Ankle Arthrex Inc [id number] PTS / / Insurance MEDICARE MEDICARE SUPPLEMENT PAYOR [facility] Advance Directives Documents on File Type Date Recorded Patient Sterile Proc Tech Expl anation Adv Directive/Living Will/POA 03/12/2017 8:08 PM * Full Code (Latest Code Status on File) Date Activated Date Inactivated Comments 03/08/2017 12:28 PM 03/09/2017 4:41 PM Care Teams Plastic Press Molder Relationship Specialty Start Date End Date Leticia Handley MD PCP - General Internal Medicine 12/06/16 Nilesh Mojica DO Orthopedic Surgery 12/06/16 Enoc Sheridan, PAMonieC [address] [place] [address] Physician Digital Tech Physician Digital Tech 03/13/17
--- OUTSIDE RECORDS SUMMARY | 2024-10-17 06:55 | XMS_ITS | Encounter Summary ---
Author Organization [facility] Address [address] [place] [address] Care Team Providers Care Semiconductor Wafers Saw Operator Name Role Phone Leticia Handley MD Primary Care Provider [phone] Karrie Mcgregor DO Primary Care Provide r Leticia Handley MD Primary Care Provider [phone] Encounter Details Date Type Department Care Team (Late st Contact Info) Description 04/22/2019 Telephone [facility] Radiology [address] [place] [address] Steff Shah, RT Social History Tobacco Use Types Packs/Day Years Used Date Smoking Tobacco: Never Smokeless Tobacco: Never Alcohol Use Standard Drinks/Week Comments Yes 0 (1 standard drink = 0.6 oz pur e alcohol) Sex and Gender Information Value Date Recorded Sex Assigned at Not on file Legal Sex Male 12:29 AM BLUE LEATHER SORTER Gender Identity Not on file Sexual Orientation Not on file documented as of this encounter Plan of Treatment Not on file documented as of this encounter Visit Diagnoses Not on filedocumented in this encounter Care Teams Semiconductor Wafers Saw Operator Relationship Specialty Start Date End Date Leticia Handley MD [address] [place] [address] PCP - General 08/11/16 03/21/23 Karrie Mcgregor DO [address] [place] [address] PCP - General Psychiatry 03/22/23 05/07/23 Leticia Handley MD [address] [place] [address] PCP - General Internal Medicine 05/08/23 documented as of this encounter
--- OUTSIDE RECORDS SUMMARY | 2024-10-17 06:55 | XMS_ITS ---
Author Organization [facility] Address [address] [place], [place] [address] Care Team Providers Care Vineyard Supervisor Name Role Phone ANASTASIIA ORNELAS Unavailable [phone] Estela Handley Unavailable Unavailable OPAL ROBISON Unavailable [phone] REASON FOR VISIT *General care Medications Medication SIG (Take, Route, Frequency, Duration) Notes Start Date End Date Status Aspirin 81 MG 1 tablet Orally Once a day Active Vital Signs Height 66.00 in 09/25/2024 Weight 200 lbs 09/25/2024 BMI 32.28 kg/m2 09/25/2024 Height-cm 167.64 cm 09/25/2024 Weight-kg 90.72 kg 09/25/2024 Encounters Encounter Location Date Provider Diagnosis [address] [phone] 09/25/2024 OPAL ROBISON Tinea unguium B35.1 ; Pain in right foot M79.671 ; Pain in left foot M79.672 ; Atherosclerosis of [place] arteries of extremities with intermittent claudication, bilateral [...] foot (ICD-10 - M79.672) 09/25/2024 Atherosclerosis of [place] arteries of extremities with intermittent claudication, bilateral [...] develop. Provider Name:OPAL GUZMAN, 12/04/2024 02:30:00 PM, [address] [place] [address], [id number], Progress Notes * KATIE CRUZDOB:1940 (83 yo M)Acc No.[id number]:09/25/2024 Patient: KATIE HOGAN Provider: Royer ROBISON :1940 A ge:83 Y S ex:Male Date:09/25/2024 Address: [place] [address] Subjective: * Chief Complaints: * 1 . [...] Patient denies c hest pain, history of [place], irregular heartbeat. M usculoskeletal: Patient complains of [...] - M79.672 4 . A therosclerosis of [place] arteries of extremities with intermittent claudication, bilateral [...] LESIONS, 2 TO 4, Modifiers: Q8 , [address]132 DEBRIDE NAIL, 6 OR MORE, Modifiers: 59 , Q8 * Follow Up: 1 0 - 12 weeks (Reason: At-Risk Foot care, sooner if problems develop.) * Billing Information: * Visit Code: * Procedure Codes: 42865 TRIM SKIN LESIONS, 2 TO 4. Modifiers: Q8 08872 DEBRIDE NAIL, 6 OR MORE. Modifiers: 59, Q8 * Electronic signature of BRIGHT ROBISON DPM on 10/17/2024 at 06:54 AM CDT Sign off status: Pending * Provider: Royer ROBISON Date: 0 09/25/2024 Generated for Joseph Gordon/Enzo on: 0 10/17/2024 06:54 AM CDT History and Physical Notes * [...]
[2024-10-17 07:12] LABS: Basophils Absolute Auto 0.06 K/mm3 (0.00-0.10); Basophils Percent Auto 1.2 % (0.0-1.0); Eosinophils Absolute Auto 0.19 K/mm3 (0.02-0.50); Eosinophils Percent Auto 3.7 % (1.0-6.0); Hematocrit 35.8 % (37.0-46.0); Hemoglobin 11.3 g/dL (12.4-15.3); Immature Granulocyte Absolute 0.02 K/mm3 (0.00-0.00); Immature Granulocyte Percent A 0.4 % (0.0-0.0); Lymphocytes Absolute Auto 1.02 K/mm3 (1.10-4.50); Lymphocytes Percent Auto 19.8 % (18.0-42.0); Mean Corpuscular HGB Conc 31.6 g/dL (32-36); Mean Corpuscular Hemoglobin 30.5 pg (27.0-31.0); Mean Corpuscular Volume 96.8 fL (78.0-102.0); Mean Platelet Volume 8.4 fl (8.7-11.0); Monocytes Absolute Auto 0.45 K/mm3 (0.10-0.90); Monocytes Percent Auto 8.7 % (2.0-11.0); Neutrophils Absolute Auto 3.41 K/mm3 (1.70-7.20); Neutrophils Percent Auto 66.2 % (50.0-70.0); Platelet Count Result 164 K/mm3 (150-420); Red Cell Distribution Width 12.9 % (11.6-14.4); White Blood Count 5.2 K/mm3 (4.8-10.8)
[2024-10-17 07:27] LABS: Iron 44 ug/dL (49-181)
== END 2024-10-17 06:50 | disposition home or self-care (01) ==
LOC: CHSLAB 06:52
PROVIDERS: PCP Internal Medicine; Visit Provider Internal Medicine
DX: D50.9 Iron deficiency anemia, unspecified (principal)
CPT/HCPCS: 36415; 82728; 83540; 85025

== ENCOUNTER 2024-11-06 12:02 | Outpatient (CLI) | payer MEDICARE, SELFPAY ==
--- OUTSIDE RECORDS SUMMARY | 2024-11-06 12:06 | XMS_ITS | Encounter Summary ---
Author Organization [facility] Healthcare Address [address] [place] [address] Care Team Providers Care Acting Teacher Name Role Phone Leticia Handley MD Primary Care Provider [phone] Karrie Mcgregor DO Primary Care Provide r Leticia Handley MD Primary Care Provider + [phone] Encounter Details Date Type Department Care Team (Late st Contact Info) Description 04/22/2019 Telephone [facility] Radiology [address] [place] [address] Steff Shah, RT Social History Tobacco Use Types Packs/Day Years Used Date Smoking Tobacco: Never Smokeless Tobacco: Never Alcohol Use Standard Drinks/Week Comments Yes 0 (1 standard drink = 0.6 oz pur e alcohol) Sex and Gender Information Value Date Recorded Sex Assigned at Not on file 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
--- OUTSIDE RECORDS SUMMARY | 2024-11-06 12:06 | XMS_ITS | Referral Summary ---
Author Organization [facility] [address] Address [address] [place] [address] Care Team Providers Care Yeast Maker Name Role Phone Leticia Handley MD Primary Care Provider [phone] Encounters Date Type Department Care Team Description 10/28/2024 9:00 AM CDT Office Visit [facility] Medical [facility] Cardiology [address] [place] [address] Carla Rodrigues NP Autonomic orthostatic hypotension (Primary Dx); Edema, lower extremity; Coronary artery disease involving bad river band coronary artery of bad river band heart without angina pectoris; S/P aortic valve replacement with bioprosthetic valve; Postoperative atrial fibrillation (HCC) 10/21/2024 Results Follow-Up [facility] Cardiology [address] [facility] [address] [place] [phone] Forrest Chavira MD Transthoracic Echo (TTE) Complete W Doppler/CF, MCT Mobile Cardiac Telemetry Event Monitor 10/10/2024 2:00 PM CDT Ancillary Procedure [facility] Cardiology at [address] [place] [address] Coronary artery disease involving bad river band coronary artery of bad river band heart without angina pectoris; S/P aortic valve replacement with bioprosthetic valve 09/23/2024 3:00 PM CDT Ancillary Procedure [facility] Cardiology at [address] [place] [phone] Postoperative atrial fibrillation (HCC) 09/23/2024 2:30 PM CDT Office Visit [facility] Group Cardiology at [address] [place] [phone] Forrest Chavira MD Coronary artery disease involving bad river band coronary artery of bad river band heart without angina pectoris (Primary Dx); Chronic heart failure with preserved ejection fraction (HFpEF) (HCC); Postoperative atrial fibrillation (HCC); S/P aortic valve replacement with bioprosthetic valve; YANET on CPAP; Chronic anticoagulation 09/09/2024 Orders Only [facility] [address] [place] [address] [place] [address] Isiah Brown MD PhD Sialorrhea 09/09/2024 Telephone [facility] [address] [place] [phone] Charlette Arias RN 09/09/2024 11:15 AM CDT Procedure visit [facility] [address] [place] [address] [place] [address] Isiah Brown MD PhD Sialorrhea (Primary Dx); Parkinson's disease without dyskinesia or fluctuating manifestations (HCC) 09/02/2024 Telephone [facility] [address] [place] [phone] Zelda Negron RN 08/20/2024 Orders Only [facility] [address] [place] [address] [place] [address] Isiah Brown MD PhD Sialorrhea (Primary Dx) 08/13/2024 Telephone [facility] [address] [place] [phone] Zelda Negron RN 08/12/2024 1:30 PM CDT Office Visit [facility] [address] [place] [phone] Isiah Brown MD PhD Parkinson's disease without dyskinesia or fluctuating manifestations (HCC) (Primary Dx); Sialorrhea from Last 3 Months Allergies No known active allergies Medications bimatoprost (Lumigan) 0.01 % ophthalmic drops Administer 1 drop into both eyes nightly 06/03/19 22 Active aspirin 81 mg enteric coated tablet Take 1 tablet (81 mg total) by mouth daily 30 tablet 1 06/17/19 23 026 Active levothyroxine (SYNTHROID) 75 mcg tablet Take 1 tablet (75 mcg total) by mouth [facility] before breakfast 30 tablet 1 06/17/19 23 [...] qam 90 tablet 3 02/25/20 24 Active ferrous sulfate 325 mg (65 mg of elemental iron) tablet Take 1 tablet (325 mg total) by mouth 3 (three) times a day 01/08/20 24 Active brimonidine-julio cesar oloL (COMBIGAN) 0.2-0.5 % [...] 540 tablet 3 08/14/19 25 026 Active carbidopa-levod opa (SINEMET) 25-100 mg per tabletIndicatio ns:Parkinsonism Take 1.5 tab tid 405 tablet 3 10/03/[address] (PROTONIX) 40 mg EC tablet TAKE 1 TABLET BY MOUTH EVERY DAY 90 tablet 3 10/07/19 25 Active potassium chloride ER 10 mEq CR tablet TAKE 1 TABLET/CAPSUL E (10 MEQ TOTAL) BY MOUTH DAILY 90 tablet 2 10/16/19 25 Active furosemide (LASIX) 20 mg tabletIndicatio ns:Edema, lower extremity Take 1 tablet (20 mg total) by mouth daily 90 tablet 3 10/29/19 25 026 Active midodrine (PROAMATINE) 5 mg tabletIndicatio ns:Autonomic orthostatic hypotension Take 5 mg for morning and midday dose and take 10 mg for evening dose. 120 tablet 3 11/04/19 25 Active potassium chloride ER 10 mEq CR tablet TAKE 1 TABLET/CAPSUL E (10 MEQ TOTAL) BY MOUTH DAILY 90 tablet 2 02/04/20 24 025 Discontinued furosemide (LASIX) 40 mg tablet TAKE 1 TABLET BY MOUTH EVERY DAY 90 tablet 2 05/05/20 24 025 Discontinued(A lternate therapy) midodrine (PROAMATINE) 5 mg tablet Take 1 tablet (5 mg total) by mouth 3 (three) times a day 270 tablet 1 07/18/19 25 025 Discontinued midodrine (PROAMATINE) 5 mg tabletIndicatio ns:Autonomic orthostatic hypotension Take 1 tablet (5 mg total) by mouth 3 (three) times a day Trial 10 mg for evening dose 10/29/19 25 025 Discontinued(R eorder) Hospital, Clinic, or Other [...] we should send an updated script to [facility] in 2-3 weeks) -start glycopyrrolate 1mg TID for sialorrhea -if ineffective consider Botox injections Assessment & Plan (03/12/2024 1:31 PM CHILD CUSTODY EVALUATOR): 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 [...] placement 11/29/2016 Coronary artery disease invo lving bad river band coronary artery of bad river band heart without angina pectoris 08/14/2016 Overview (09/29/2016): Coronary artery disease involving bad river band coronary artery of bad river band heart with other form of angina pectoris [...] relatives? 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 Gender Identity Not on file Sexual Orientation Not on file Last Filed Vital Signs Vital Sign Reading Time Taken Comments Blood Pressure 96/52 10/28/2024 8:39 AM CDT Pulse 72 10/28/2024 8:39 AM CDT Temperature 36.8 C (98.2 F) 08/12/2024 12:47 PM CDT Respiratory Rate 18 04/10/2024 2:18 PM CHILD CUSTODY EVALUATOR Oxygen Saturation 97% 10/28/2024 8:39 AM CDT Inhaled Oxygen Concentration - - Weight 81.2 kg (179 lb) 10/28/2024 8:39 AM CDT Height 165.1 cm (5' 5) 10/28/2024 8:39 AM CDT Body Mass Index 29.79 10/28/2024 8:39 AM CDT Plan of Treatment Not on file Medical Devices Implanted Type Area [employer] Operator Device Identifier Shelf Expiration Date Model / Serial / Lot [employer] Medical Plate Bone Low Profile 6 Hole H Shape Ti 115.102.06 - [id number] Implanted:Qty: 1 on 06/05/2022 by Nicolás Arevalo MD at [facility] Plate N/A: Sternum [employer] 115.102. 06 / / Ziggy Medical Plate Bone Low Profile 4 Hole Box Ti 115.103.04 - [id number] Implanted:Qty: 1 on 06/05/2022 by Nicolás Arevalo MD at [facility] Plate N/A: Sternum [employer] 115.103. 04 / / [employer]iggy Medical Plate Bone Low Profile 6 Hole O Concave Ti 115.604.06 - [id number] Implanted:Qty: 1 on 06/05/2022 by Nicolás Arevalo MD at [facility] Plate N/A: Sternum [employer] 115.604. 06 / / [employer] Von-Tim ds Perimount Magna Ease 23mm Bioprosthesis [id number] - [id number] - [id number] Implanted:Qty: 1 on 06/05/2022 by Nicolás Arevalo MD at [facility] Prosthetic Valve N/A: Heart [employer] 07/18/2024 [id number] / [id number] / Zig[employer] Medical Screw Bone Slf Drl Full Thread Locking 3.5x14mm Ti 100.035.14 - [id number] Implanted:Qty: 10 on 06/05/2022 by Nicolás Arevalo MD at [facility] Screw N/A: Sternum [employer] 100.035. 14 / / Ziggy Medical Screw Bone Slf Drl Full Thread Locking 3.5x16mm Ti 100.035.16 - [id number] Implanted:Qty: 6 on 06/05/2022 by Nicolás Arevalo MD at [facility] Screw N/A: Sternum [employer] 100.035. 16 / / Procedures Procedure Name Priority Date/Time Associated Diagnosis Comments TRANSTHORACIC ECHO (TTE) COMPLETE W DOPPLER/CF W CONTRAST Routine 10/10/2024 2:56 PM CDT Coronary artery disease involving bad river band coronary artery of bad river band heart without angina pectoris S/P aortic valve replacement with bioprosthetic valve MCT - MOBILE CARDIAC TELEMETRY EVENT MONITOR Routine 09/23/2024 3:33 PM CDT Postoperative atrial fibrillation (HCC) POCT LIPID PANEL Routine 08/02/2023 10:2 9 AM CDT Coronary artery disease involving bad river band coronary artery of bad river band heart without angina pectoris EGFR Routine 06/16/2022 10:03 AM CHILD CUSTODY EVALUATOR HEMOGLOBIN A1C Routine 05/30/2022 12:59 PM CHILD CUSTODY EVALUATOR Preop testing Type 2 diabetes mellitus with [...] PM CDT Narrative 10/10/2024 4:31 PM CDT [facility] Cardiology [address], [address], [place] [address] P:[phone] P:[phone] Echocardiographic Report ADDENDUM Patient Name: ALLI EAGLE H : 1940 Study Date: 10/10/2024 2:00:09 PM Gender: M Tech: Location: [facility] Ref Provider: FORREST CHAVIRA Height(Cm): 165 BSA: 1.92 Weight(Kg): 80.7 Heart Rate: 58 BP: 118 / 66 Quality: Good Order Provider: FORREST CHAVIRA PROCEDURES: Echocardiographic Report: Transthoracic echocardiogram with complete 2D, M-Mode, color Doppler examination and Definity contrast. INDICATIONS: Bioprosthetic Aortic Valve Replacement and I25.10 Atherosclerotic heart disease of bad river band coronary artery without angina pectoris. MEASUREMENTS: 2D/MM [...] FINDINGS: Interpretation Site: Exam was interpreted at [facility]. Left Ventricle: Normal left ventricular systolic function. [...] Normal sinus rhythm. Electronically Signed By: Forrest Chavira MD 2024-10-10 16:30:26 CDT Electronically Amended By: Forrest Chavira MD 10/13/2024 1:27:10 PM CDT [ADDENDUM] Procedure Note Forrest Chavira MD - 10/13/2024 [facility] Cardiology [facility] [facility], [address], [place] [address] P:[phone] P:[phone] Echocardiographic Report ADDENDUM Patient Name: ALLI EAGLE H : 1940 Study Date: 10/10/2024 2:00:09 PM Gender: M Tech: Location: [facility] Ref Provider: FORREST CHAVIRA Height(Cm): 165 BSA: 1.92 Weight(Kg): 80.7 Heart Rate: 58 BP: 118 / 66 Quality: Good Order Provider: FORREST CHAVIRA PROCEDURES: Echocardiographic Report: Transthoracic echocardiogram with complete 2D, M-Mode, color Dopplerexamination and Definity contrast. INDICATIONS: Bioprosthetic Aortic Valve Replacement and I25.10 Atherosclerotic heartdisease of bad river band coronary artery without angina pectoris. MEASUREMENTS: 2D/MM [...] FINDINGS: Interpretation Site: Exam was interpreted at [facility]. Left Ventricle: Normal left ventricular systolic function. [...] Normal sinus rhythm. Electronically Signed By: Forrest Chavira MD 2024-10-10 16:30:26 CDT Electronically Amended By: Forrest Chavira MD 10/13/2024 1:27:10 PM CDT [ADDENDUM] us Forrest Chavira MD CV ECHO PROCEDURES Edited Result - Final * MCT Mobile Cardiac Telemetry Event Monitor (09/23/2024 3:33 PM CDT) Anatomical Region Laterality Modality Electrocardiogra phy Narrative 10/26/2024 1:40 PM CDT AMBULATORY EPIC BEACON ANALYST REPORT Patient Name: Alli Eagle Date of : 1940 Requesting Physician: Fan Date of interpretation: 10/26/24 Type of monitor : 30 day event monitor Date of the study/Enrollment period: Initiated on 09/23/2024 Indication: History of atrial fibrillation Quality of the study: Favorable Interpretation: The basic rhythm is sinus with normal ID interval the QRS duration is 0.12 seconds QT interval is normal. The heart rate varies from a minimum of 53 to a maximum of 119. The average rate was 74. There were no examples of abnormal AV conduction or pauses identified. Supraventricular ectopic activity consisted of occasional APCs with a volume of less than 1%. No atrial fibrillation was identified. Ventricular ectopic activity was infrequent consisting of P VPCs with a total burden of less than 1%. There was 1 4 beat ventricular run on at 4:34 a.m.. The patient submitted a diary there were 5 rhythm strips associated with symptoms or manually triggered. Specific symptoms were not detailed. All of these demonstrated episodes of sinus rhythm without atrial or ventricular arrhythmias. Conclusions: Sinus rhythm with normal heart rate variability Infrequent atrial and ventricular ectopic activity One asymptomatic 4 beat run of ventricular tachycardia as detailed above No evidence of atrial fibrillation Voice recognition software was used to complete this document, therefore, neurology professor variances may occur. Juan Wilder MD [facility] 10/26/24 Procedure Note Juan Wilder MD - 10/26/2024 AMBULATORY EPIC BEACON ANALYST REPORT Patient Name: Alli Eagle Date of : 1940 Requesting Physician: Fan Date of interpretation: 10/26/24 Type of monitor : 30 day event monitor Date of the study/Enrollment period: Initiated on 09/23/2024 Indication: History of atrial fibrillation Quality of the study: Favorable Interpretation: The basic rhythm is sinus with normal ID interval the QRSduration is 0.12 seconds QT interval is normal. The heart rate variesfrom a minimum of 53 to a maximum of 119. The average rate was 74. Therewere no examples of abnormal AV conduction or pauses identified. Supraventricular ectopic activity consisted of occasional APCs with avolume of less than 1%. No atrial fibrillation was identified. Ventricular ectopic activity was infrequent consisting of P VPCs with atotal burden of less than 1%. There was 1 4 beat ventricular run on at 4:34 a.m.. The patient submitted a diary there were 5 rhythm strips associated withsymptoms or manually triggered. Specific symptoms were not detailed. Allof these demonstrated episodes of sinus rhythm without atrial orventricular arrhythmias. Conclusions: Sinus rhythm with normal heart rate variability Infrequent atrial and ventricular ectopic activity One asymptomatic 4 beat run of ventricular tachycardia as detailed above No evidence of atrial fibrillation Voice recognition software was used to complete this document, therefore,neurology professor variances may occur. Juan Wilder MD [facility] 10/26/24 us Forrest Chavira MD CV CARDIAC [facility] Final Result * POCT lipid panel (08/02/2023 10:29 [...] Final Result * eGFR (06/16/2022 10:03 AM CHILD CUSTODY EVALUATOR) eGFR 67 mL/min/1. 73 m2 RYAN LUX [...] reviewed 2021. Blood 06/16/2022 10:0 3 AM CHILD CUSTODY EVALUATOR 06/16/2022 10:03 AM CHILD CUSTODY EVALUATOR Nicolás Arevalo MD LAB BLOOD ORDERABLES Final Res ult RYAN LUX [id number] [address] [place] [address] * Hemoglobin A1c (05/30/2022 12:59 PM CHILD CUSTODY EVALUATOR) Hgb A1C 5.5 4.0 - 5.6 % RYAN LUX Estimated Average Glucose 111 mg/dL RYAN LUX Comment: The ADA recommends reporting an estimated Average Glucose (eAG) with all Hemoglobin A1c results using the equation derived from a study of 507 normal and diabetic adults. Minority populations were underrepresented and children were not included. (Diabetes Care 31:2232-7750, 2008). The eAG is not equivalent to a fasting glucose. Blood 05/30/2022 12:5 9 PM CHILD CUSTODY EVALUATOR 05/30/2022 1:03 PM CHILD CUSTODY EVALUATOR Nicolás Arevalo MD LAB BLOOD ORDERABLES Final Res ult RYAN [address] [address] [place] [address] from Last 3 Months or Most Recently Relevant to Health [place] [address] MEDICARE [facility] MEDICARE [place] [address] MEDICARE [facility] MEDICARE SUPPLEMENT MEDICARE [facility] MEDICARE SUPPLEMENT Advance Directives For more information, please contact: [phone] * Full Code (Latest Code Status on File) Date Activated Date Inactivated Comments 06/05/2022 2:49 PM 06/16/2022 5:28 PM Care Teams Yeast Maker Relationship Specialty Start Date End Date Leticia Handley MD [address] [place] [address] PCP - General Internal Medicine 05/08/23
--- OUTSIDE RECORDS SUMMARY | 2024-11-06 12:06 | XMS_ITS | Patient Health Record ---
Author Organization [facility] Address [address] [place], [place] [id number] Care Team Providers Care Food Concession Manager Name Role Phone ANASTASIIA ORNELAS Unavailable [phone] Estela Handley Unavailable Unavailable CARLOS STEVE Unavailable [phone] OPAL ROBISON Unavailable [phone] Allergies No Known Allergies Reason For Referral [...] 09/25/2024 Encounters Encounter Location Date Provider Diagnosis [address] [id number] 09/25/2024 OPAL ROBISON Tinea unguium B35.1 ; Pain in right foot M79.671 ; Pain in left foot M79.672 ; Atherosclerosis of [place] arteries of extremities with intermittent claudication, bilateral legs I70.213 and Acquired keratosis [keratoderma] palmaris et plantaris L85.[address] [id number] 11/29/2023 CARLOS STEVE Other hammer toe(s) (acquired), right foot M20.41 ; Tinea unguium B35.1 ; Other hammer toe(s) (acquired), left foot M20.42 ; Pain in right toe(s) M79.674 ; Pain in left toe(s) M79.675 ; Pain in right foot M79.671 ; Pain in left foot M79.672 ; 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[place] arteries of extremities, bilateral legs I70.203 and Acquired keratosis [keratoderma] palmaris et plantaris L85.[address] [id number] 01/31/2024 CARLOS POWER Other hammer toe(s) (acquired), right foot M20.41 ; Tinea unguium B35.1 ; Other hammer toe(s) (acquired), left foot M20.42 ; Pain in right toe(s) M79.674 ; Pain in left toe(s) M79.675 ; Pain in right foot M79.671 ; Pain in left foot M79.672 ; 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[place] arteries of extremities, bilateral legs I70.203 and Acquired keratosis [keratoderma] palmaris et plantaris L85.[address] [id number] 04/10/2024 CARLOS POWER Other hammer toe(s) (acquired), right foot M20.41 ; Tinea unguium B35.1 ; Other hammer toe(s) (acquired), left foot M20.42 ; Pain in right toe(s) M79.674 ; Pain in left toe(s) M79.675 ; Pain in right foot M79.671 ; Pain in left foot M79.672 ; 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[place] arteries of extremities, bilateral legs I70.203 and Acquired keratosis [keratoderma] palmaris et plantaris L85.[address] [id number] 05/22/2024 ANASTASIIA ORNELAS Tinea unguium B35.1 ; Pain in right foot M79.671 ; Pain in left foot M79.672 ; Atherosclerosis of [place] arteries of extremities with intermittent claudication, bilateral legs I70.213 and Acquired keratosis [keratoderma] palmaris et plantaris L85.[address] [place] [id number] 07/24/2024 ANASTASIIA ORNELAS Tinea unguium B35.1 ; Pain in right foot M79.671 ; Pain in left foot M79.672 ; Atherosclerosis of [place] arteries of extremities with intermittent claudication, bilateral [...] toe(s) (ICD-10 - M79.674) 07/24/2024 Atherosclerosis of [place]osh[place] arteries of extremities with intermittent claudication, bilateral legs (ICD-10 - I70.213) 05/22/2024 Atherosclerosis of [place]osh[place] arteries of extremities with intermittent claudication, bilateral legs (ICD-10 - I70.213) 04/10/2024 Pain in right toe(s) (ICD-10 - M79.674) 09/25/2024 Atherosclerosis of [place] arteries of extremities with intermittent claudication, bilateral [...] (ICD-10 - M79.672) 11/29/2023 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[place] arteries of extremities, bilateral legs (ICD-10 - I70.203) Patient educated on risks and aggravating factors of PVD, including conservative treatment options such as a diet and exercise regimen to aid in slowing progression of vascular disease 01/31/2024 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[place]osh[place] arteries of extremities, bilateral legs (ICD-10 - I70.203) Patient educated on risks and aggravating factors of PVD, including conservative treatment options such as a diet and exercise regimen to aid in slowing progression of vascular disease 04/10/2024 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[place]osh[place] arteries of extremities, bilateral legs (ICD-10 - [...] Details Provider Name:OPAL GUZMAN, 12/04/2024 02:30:00 PM, [address] [place] [address], [id number], Insurance Providers Payer Name Payer Address Payer Phone Subscriber Number Group Number Insured Name Patient Relationship to Insured Coverage Start Date Coverage End Date Medicare Part B [place] [address] [place] [id number] KATIE CRUZ Self - patient is the insured [facility] ([facility]) ATTN CLAIMS [address] [place] [address] [id number] KATIE CRUZ Self - patient is the insured 4 Medical (General) History Surgical History Surgery Date(Month/Year) Total ankle replacement 2014
--- OUTSIDE RECORDS SUMMARY | 2024-11-06 12:06 | XMS_ITS | Encounter Summary ---
Author Organization [facility] Healthcare Address [address] [place] [address] Care Team Providers Care Flatwork Washer Name Role Phone Leticia Handlye MD Primary Care Provider [phone] Encounter Details Date Type Department Care Team (Latest Contact Info) Description 10/21/2024 Results Follow-Up [facility] Medical Group Cardiology [address] [facility] [address] [place] [phone] [place] [address] [place] [address] [address] [facility] [place] [id number] [place], [place] [id number] Transthoracic Echo (TTE) Complete W Doppler/CF, MCT Mobile Cardiac Telemetry Event Monitor Social History Tobacco Use Types Packs/Day Years [...] relatives? 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
--- OUTSIDE RECORDS SUMMARY | 2024-11-06 12:06 | XMS_ITS | Encounter Summary ---
Author Organization [facility] Address [address] [place] [address] Care Team Providers Care Electrician Yard Name Role Phone Leticia Handley MD Primary Care Provider Nilesh Mojica DO Unavailable Enoc Sheridan PA-C Unavailable [phone] Encounter Details Date Type Department Care Team (Late st Contact Info) Description 12/06/2016 [facility] Outpatient Visit [facility] Orthopedics - Radiology [address] [place] [address] [facility] Medical [address] [address] Social History Tobacco Use Types [...] st Contact Info) Description 03/09/2025 10:40 AM PRIMER BOXER Office Visit [facility] Health Orthopedics [address], [address] [address] Nilesh Mojica [address] [address] documented as of this encounter Visit Diagnoses Not on filedocumented in this encounter Care Teams Electrician Yard Relationship Specialty Start Date End Date Leticia Handley MD PCP - General Internal Medicine 12/06/16 Nilesh Mojica DO Orthopedic Surgery 12/06/16 Enoc Sheridan PA-C [address] [place] [address] Physician Audit Partner Physician Audit Partner 03/13/17 documented as of this encounter
--- OUTSIDE RECORDS SUMMARY | 2024-11-06 12:06 | XMS_ITS ---
Author Organization [facility] Address [address] [place], [place] [address] Care Team Providers Care Cementing Machine Operator Name Role Phone ANASTASIIA ORNELAS Unavailable [phone] Estela Handley Unavailable Unavailable OPAL ROBISON Unavailable [phone] REASON FOR VISIT *General care Medications Medication SIG (Take, Route, Frequency, Duration) Notes Start Date End Date Status Aspirin 81 MG 1 tablet Orally Once a day Active Vital Signs Height 66.00 in 09/25/2024 Weight 200 lbs 09/25/2024 BMI 32.28 kg/m2 09/25/2024 Height-cm 167.64 cm 09/25/2024 Weight-kg 90.72 kg 09/25/2024 Encounters Encounter Location Date Provider Diagnosis [address] [id number] 09/25/2024 OPAL ROBISON Tinea unguium B35.1 ; Pain in right foot M79.671 ; Pain in left foot M79.672 ; Atherosclerosis of [place] arteries of extremities with intermittent claudication, bilateral [...] foot (ICD-10 - M79.672) 09/25/2024 Atherosclerosis of [place] arteries of extremities with intermittent claudication, bilateral [...] develop. Provider Name:OPAL GUZMAN, 12/04/2024 02:30:00 PM, [address] [place] [address], [id number], Progress Notes * KATIE CRUZDOB:1940 (83 yo M)Acc No.[id number]:09/25/2024 Patient: KATIE HOGAN Provider: Royer ROBISON :1940 A ge:83 Y S ex:Male Date:09/25/2024 Address: [place] [address] Subjective: * Chief Complaints: * 1 . [...] Patient denies c hest pain, history of VT, irregular heartbeat. M usculoskeletal: Patient complains of [...] - M79.672 4 . 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 Modifiers: Q8 05491 DEBRIDE NAIL, 6 OR MORE. Modifiers: 59, Q8 * Electronic signature of BRIGHT ROBISON DPM on 11/06/2024 at 12:06 PM CDT Sign off status: Pending * Provider: Royer ROBISON Date: 0 09/25/2024 Generated for Joseph Gordon/Enzo on: 0 11/06/2024 12:06 PM CDT History and Physical Notes * [...]
--- OUTSIDE RECORDS SUMMARY | 2024-11-06 12:06 | XMS_ITS | Clinical Summary ---
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 [...] placement 11/29/2016 Coronary artery disease invo lving [place] coronary artery of [place] heart without angina pectoris 08/14/2016 Overview (09/29/2016): Coronary artery disease involving [place] coronary artery of [place] heart with other form of angina [...] Description 10/28/2024 9:00 AM CDT Office Visit [facility] [address] [address] [place] [address] Carla Rodrigues NP Autonomic orthostatic hypotension (Primary Dx); Edema, lower extremity; Coronary artery disease involving [place] coronary artery of [place] heart without angina pectoris; S/P aortic valve replacement with bioprosthetic valve; Postoperative atrial fibrillation (HCC) 10/21/2024 Results Follow-Up [facility] [address] [place] [phone] Forrest Chavira MD Transthoracic Echo (TTE) Complete W Doppler/CF, MCT Mobile Cardiac Telemetry Event Monitor 10/10/2024 2:00 PM CDT Ancillary Procedure [facility] at [address] [place] [address] Coronary artery disease involving [place] coronary artery of [place] heart without angina pectoris; S/P aortic valve replacement with bioprosthetic valve 09/23/2024 3:00 PM CDT Ancillary Procedure [facility] at [address] [place] [address] Postoperative atrial fibrillation (HCC) 09/23/2024 2:30 PM CDT Office Visit [facility] at [address] [place] [address] Forrest Chavira MD Coronary artery disease involving [place] coronary artery of [place] heart without angina pectoris (Primary Dx); Chronic heart failure with preserved ejection fraction (HFpEF) (HCC); Postoperative atrial fibrillation (HCC); S/P aortic valve replacement with bioprosthetic valve; YANET on CPAP; Chronic anticoagulation 09/09/2024 11:15 AM CDT Procedure visit [facility] [address] [place] [address] [place] [address] Isiah Brown MD PhD Sialorrhea (Primary Dx); Parkinson's disease without dyskinesia or fluctuating manifestations (HCC) 09/09/2024 Orders Only [facility] [address] [place] [address] [place] [address] Isiah Brown MD PhD Sialorrhea 09/09/2024 Telephone [facility] [address] [place] [address] Charlette Arias RN 09/02/2024 Telephone [facility] [address] [place] [address] Zelda Negron RN 08/20/2024 Orders Only [facility] [address] [place] [address] [place] [address] Isiah Brown MD PhD Sialorrhea (Primary Dx) 08/13/2024 Telephone [facility] [address] [place] [address] Zelda Negron, RN 08/12/2024 1:30 PM CDT Office Visit [facility] [address] [place] [address] Isiah Brown MD PhD Parkinson's disease without [...] relatives? 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 Gender Identity Not on file Sexual Orientation Not on file Obstetrics History Last Filed Vital Signs Vital Sign Reading Time Taken Comments Blood Pressure 96/52 10/28/2024 8:39 AM CDT Pulse 72 10/28/2024 8:39 AM CDT Temperature 36.8 C (98.2 F) 08/12/2024 12:47 PM CDT Respiratory Rate 18 04/10/2024 2:18 PM CAR FERRIER Oxygen Saturation 97% 10/28/2024 8:39 AM CDT Inhaled Oxygen Concentration - - Weight 81.2 kg (179 lb) 10/28/2024 8:39 AM CDT Height 165.1 cm (5' 5) 10/28/2024 8:39 AM CDT Body Mass Index 29.79 10/28/2024 8:39 AM CDT Plan of Treatment Health Maintenance [...] exists Depression Screening 09/17/2024 09/18/2023 Influenza Vaccine (#1) 2025 9, 01/25/2018, 02/15/2017, Additional history exists Pneumococcal vaccine 65+ Completed 015, 09/10/2012, 06/13/2004 Medical Devices Implanted Type Area Finisher Denture Device Identifier Shelf Expiration Date Model / Serial / Lot Ziggy Medical Plate Bone Low Profile 6 Hole H Shape Ti 115.102.06 - [id number] Implanted:Qty: 1 on 06/05/2022 by Nicolás Arevalo MD at [facility] Plate N/A: Sternum [employer] 115.102. 06 / / Ziggy Medical Plate Bone Low Profile 4 Hole Box Ti 115.103.04 - [id number] Implanted:Qty: 1 on 06/05/2022 by Nicolás Arevalo MD at [facility] N/A: Sternum [employer] 115.103. 04 / / Ziggy Medical Plate Bone Low Profile 6 Hole O Concave Ti 115.604.06 - [id number] Implanted:Qty: 1 on 06/05/2022 by Nicolás Arevalo MD at [facility] N/A: Sternum Fenrando [employer] 115.604. 06 / / Bhatti Lifesciences Von-Tim ds Perimount Magna Ease 23mm Bioprosthesis [id number] - [id number] - [id number] Implanted:Qty: 1 on 06/05/2022 by Nicolás Arevalo MD at [facility] Prosthetic Valve N/A: Heart Bhatti [employer] 07/18/2024 [id number] / [id number] / Ziggy Medical Screw Bone Slf Drl Full Thread Locking 3.5x14mm Ti 100.035.14 - [id number] Implanted:Qty: 10 on 06/05/2022 by Nicolás Arevalo MD at [facility] Screw N/A: Sternum [employer] 100.035. 14 / / Ziggy Medical Screw Bone Slf Drl Full Thread Locking 3.5x16mm Ti 100.035.16 - [id number] Implanted:Qty: 6 on 06/05/2022 by Nicolás Arevalo MD at [facility] Screw N/A: Sternum [employer] 100.035. 16 / / Procedures Procedure Name Priority Date/Time Associated Diagnosis Comments TRANSTHORACIC ECHO (TTE) COMPLETE W DOPPLER/CF W CONTRAST Routine 10/10/2024 2:56 PM CDT Coronary artery disease involving [place] coronary artery of [place] heart without angina pectoris S/P aortic valve replacement with bioprosthetic valve MCT - MOBILE CARDIAC TELEMETRY EVENT MONITOR Routine 09/23/2024 3:33 PM CDT Postoperative atrial fibrillation (HCC) POCT LIPID PANEL Routine 08/02/2023 10:2 9 AM CDT Coronary artery disease involving [place] coronary artery of [place] heart without angina pectoris EGFR Routine 06/16/2022 10:03 AM CAR FERRIER HEMOGLOBIN A1C Routine 05/30/2022 12:59 PM CAR FERRIER Preop testing Type 2 diabetes mellitus with [...] PM CDT Narrative 10/10/2024 4:31 PM CDT [facility] [address] , [address], [place] [address] P:[phone] P:[phone] Echocardiographic Report ADDENDUM Patient Name: ALLI EAGLE [...] Replacement and I25.10 Atherosclerotic heart disease of [place] coronary artery without angina pectoris. MEASUREMENTS: 2D/MM [...] FINDINGS: Interpretation Site: Exam was interpreted at [facility]. Left Ventricle: Normal left ventricular systolic function. [...] Procedure Note Forrest Chavira MD - 10/13/2024 [facility] [address] [place] [address], [address], [place] [address] P:[phone] P:[phone] Echocardiographic Report ADDENDUM Patient Name: ALLI EAGLE [...] Valve Replacement and I25.10 Atherosclerotic heartdisease of [place] coronary artery without angina pectoris. MEASUREMENTS: 2D/MM [...] FINDINGS: Interpretation Site: Exam was interpreted at [facility]. Left Ventricle: Normal left ventricular systolic function. [...] phy Narrative 10/26/2024 1:40 PM CDT AMBULATORY [facility] REPORT Patient Name: Alli Eagle Date of : 1940 Requesting Physician: Fan Date of interpretation: 10/26/24 Type of monitor : 30 day event monitor Date of the study/Enrollment period: Initiated on 09/23/2024 Indication: History of atrial fibrillation Quality of the study: Favorable Interpretation: The basic rhythm is sinus with normal OK interval the QRS duration is 0.12 seconds [...] was used to complete this document, therefore, mining detail draftsperson variances may occur. Juan Wilder MD [facility] 10/26/24 Procedure Note Juan Wilder MD - 10/26/2024 AMBULATORY [facility] REPORT Patient Name: Alli Eagle Date of : 1940 Requesting Physician: Fan Date of interpretation: 10/26/24 Type of monitor : 30 day event monitor Date of the study/Enrollment period: Initiated on 09/23/2024 Indication: History of atrial fibrillation Quality of the study: Favorable Interpretation: The basic rhythm is sinus with normal OK interval the QRSduration is 0.12 seconds QT [...] software was used to complete this document, therefore,mining detail draftsperson variances may occur. Juan Wilder MD [facility] 10/26/24 us Forrest Chavira MD [facility] Final Result * POCT lipid panel [...] Final Result * eGFR (06/16/2022 10:03 AM CAR FERRIER) eGFR 67 mL/min/1. 73 m2 RYAN LUX [...] reviewed 2021. Blood 06/16/2022 10:0 3 AM CAR FERRIER 06/16/2022 10:03 AM CAR FERRIER Nicolás Arevalo MD LAB BLOOD ORDERABLES Final Res ult RYAN LUX [address] [address] Department [place] [address] * Hemoglobin A1c (05/30/2022 12:59 PM CAR FERRIER) Hgb A1C 5.5 4.0 - 5.6 % RYAN LUX Estimated Average Glucose 111 mg/dL [facility] LUX Comment: The ADA recommends reporting an estimated Average Glucose (eAG) with all Hemoglobin A1c results using the equation derived from a study of 507 normal and diabetic adults. Minority populations were underrepresented and children were not included. (Diabetes Care 31:5336-8839, 2008). The eAG is not equivalent to a fasting glucose. Blood 05/30/2022 12:5 9 PM CAR FERRIER 05/30/2022 1:03 PM CAR FERRIER Nicolás Arevalo MD LAB BLOOD ORDERABLES Final Res ult RYAN [address] [address] Department of Laboratories [place], [place] [id number] from Last 3 Months or Most Recently Relevant to Health Maintenance Insurance MEDICARE [facility] MEDICARE SUPPLEMENT INSURANCE MEDICARE [facility] MEDICARE SUPPLEMENT MEDICARE [facility] MEDICARE SUPPLEMENT Advance Directives For more information, please contact: [phone] * Full Code (Latest Code Status on File) Date Activated Date Inactivated Comments 06/05/2022 2:49 PM 06/16/2022 5:28 PM Care Teams Housekeeping Worker Relationship Specialty Start Date End Date Leticia Handley MD [address] [place], [place] [id number] PCP - General Internal Medicine 05/08/23
--- OUTSIDE RECORDS SUMMARY | 2024-11-06 12:06 | XMS_ITS | Encounter Summary ---
Author Organization [facility] Address [address] [place] [address] Care Team Providers Care Air Hole Driller Name Role Phone Leticia Handley MD Primary Care Provider [phone] Karrie Mcgregor DO Primary Care Provide r Leticia Handley MD Primary Care Provider [phone] Encounter Details Date Type Department Care Team (Late st Contact Info) Description 08/15/2016 Orders Only [facility] ProviderNila MD [address] [place] [address] Social History Tobacco Use Types Packs/Day Years Used Date Smoking Tobacco: Never Alcohol Use Standard Drinks/Week Comments Yes 0 (1 standard drink = 0.6 oz pur e alcohol) Sex and Gender Information Value Date Recorded Sex Assigned at Not on file 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
--- OUTSIDE RECORDS SUMMARY | 2024-11-06 12:06 | XMS_ITS | Clinical Summary ---
Author Organization [facility] Address [address] [place] [address] Care Team Providers Care Yeast Maker Name Role Phone Leticia Handley MD Primary Care Provider [phone] Nilesh Mojica DO Unavailable [phone] Enoc Sheridan PA-C Unavailable [phone] Source Comments [facility],non-owned Affiliates and Associated Physician Practices is amultiple site organization consisting of ambulatory clinics and hospital sitesin [place], [place], [place] and [place]. This disclosure is being madepursuant to the Care Everywhere program and may not contain all information available regarding this patient. Last updated 18.[facility] [employer] Allergies No known active allergies Medications * [...] st Contact Info) Description 03/09/2025 10:40 AM ASSOCIATE MATERIAL HANDLER Office Visit [facility] Health Orthopedics [address], [address] [address] Nilesh Mojica DO [address] [address] Health Maintenance Due Date Last [...] this topic Medical Devices Implanted Type Area Skidder Driver Device Identifier Shelf Expiration Date Model / Serial / Lot Stem Tlr Inbone Ii 1 Lg 10mm Ankl Implanted:Qty : 1 on 03/08/2017 by Nilesh Mojica DO at [facility] Left: Ankle CoinKeeper 12/07/2023 [id number] / / [id number] 4 Long Tibial Tray Implanted:Qty : 1 on 03/08/2017 by Nilesh Mojica DO at [facility] Left: Ankle CoinKeeper 01/09/2025 [id number] / / [id number] Cmpnt Tlr Inbone 3 Dome Ankl Sulcus Implanted:Qty : 1 on 03/08/2017 by Nilesh Mojica DO at [facility] Left: Ankle CoinKeeper 12/09/2024 [id number] / / [id number] Infinity Poly Insert Implanted:Qty : 1 on 03/08/2017 by Nilesh Mojica DO at [facility] Left: Ankle CoinKeeper 10/22/2024 [id number] / / [id number] Screw Qckfix Kyler Canc 4.0 X 46 Implanted:Qty : 1 on 03/08/2017 by Nilesh Mojica DO at [facility] Left: Ankle Arthrex Inc [id number] / / Plate 61mm 3 Hl Hk Lck Ss Ft/Ankl Mdl Implanted:Qty : 1 on 03/08/2017 by Nilesh Mojica DO at [facility] Left: Ankle Arthrex Inc AR-8943H-[id number] / / Screw 3.5mm 38mm T15 Hexalobe Ft Ankl Implanted:Qty : 1 on 03/08/2017 by Nilesh Mojica DO at [facility] Left: Ankle Arthrex Inc AR-8835-38 / / Graft Bone Othblst Ii Dbm Canc 1cc Alg - [id number] Implanted:Qty : 1 on 03/08/2017 by Nilesh Mojica DO at [facility] Left: Ankle Integra Neurosciences 01/01/2019 / [id number] / [id number] Explanted Type Area Skidder Driver Device Identifier Shelf Expiration Date Model / Serial / Lot Jonathan Total Ank Replacement Explanted:Qty: 1 on 03/08/2017 at [facility] Left: Ankle [employer] TOTAL ANKLE REPL MORE / / Screw Qckfix Kyler Canc 4.0 X 46 Explanted:Qty: 1 on 03/08/2017 by Nilesh Mojica DO at [facility] Left: Ankle Arthrex Inc AR-8740-46 PTS / / Insurance MEDICARE MEDICARE SUPPLEMENT [facility] Advance Directives Documents on File Type Date Recorded Patient Plug Grower Expl anation Adv Directive/Living Will/POA 03/12/2017 8:08 PM * Full Code (Latest Code Status on File) Date Activated Date Inactivated Comments 03/08/2017 12:28 PM 03/09/2017 4:41 PM Care Teams Yeast Maker Relationship Specialty Start Date End Date Leticia Handley MD PCP - General Internal Medicine 12/06/16 Nilesh Mojica DO Orthopedic Surgery 12/06/16 Enoc Sheridan, PAMonieC [address] [place] [address] Physician Senior Digital Designer Physician Senior Digital Designer 03/13/17
--- OUTSIDE RECORDS SUMMARY | 2024-11-06 12:06 | XMS_ITS | Clinical Summary ---
Author Organization [facility] Address [address] [place] [address] Care Team Providers Care Sap Bpc Architect Name Role Phone Leticia Handley MD Primary Care Provider [phone] Allergies No known active allergies Medications clopidogrel [...] opa (SINEMET) 25-250 MG tabletIndicatio ns:Parkinson's disease ([facility]) TAKE 1 TABLET BY MOUTH 4 TIMES DAILY 360 tablet 3 03/24/2022 Active pramipexole (MIRAPEX) 1 MG tabletIndicatio ns:Parkinson's disease ([facility]) Take [...] artery disease of n ative artery of tribal heart with stable angina pectoris 08/14/2016 Overview (05/27/2019): Overview: Coronary artery disease involving tribal coronary artery of tribal heart with other form of angina pectoris Dyslipidemia associated with type 2 diabetes mellitus ([facility]) 11/15/2015 Overview (05/27/2019): Overview: DM type 2 with diabetic dyslipidemia Hypertensive heart disease w ith congestive heart failure ([facility]) 08/02/2015 Overview (05/27/2019): Overview: Hypertensive heart disease with diastolic heart failure YANET on CPAP 08/02/2015 Overview (05/27/2019): Overview: YANET on CPAP Benign hypertension 04/26/2015 Overview (05/27/2019): Overview: HTN (hypertension), benign Dyslipidemia 04/26/2015 Overview (05/27/2019): Overview: Mixed dyslipidemia Cardiomyopathy ([facility]) 04/26/2015 Overview (05/27/2019): Overview: Cardiomyopathy Myocardial infarction ([facility]) 04/26/20 15 [...] CDT Respiratory Rate 18 07/13/2021 2:45 PM EXECUTIVE LEGAL SECRETARY Oxygen Saturation 96% 12/16/2021 8:52 AM CDT Inhaled Oxygen Concentration - - Weight 90.7 kg (200 lb) 12/16/2021 8:52 AM CDT Height 166.4 cm (5' 5.5) 12/16/2021 8:52 AM CDT Body Mass Index [...] age to complete this topic Insurance MEDICARE [facility] MEDICARE [facility] Care Teams Sap Bpc Architect Relationship Specialty Start Date End Date Leticia Handley MD [address] [place] [address] PCP - General INTERNAL MEDICINE 08/09/18
[2024-11-06 12:28] VITALS: BP 109/64; PULSE 68; RESP 16; TEMP 36.6; O2SAT 97; BMI 29.6
[2024-11-06] MEDS: SODIUM CHLORIDE 0.9% IVPB (12:45)
[2024-11-06] MEDS: FERRIC CARBOXYMALTOSE IVPB (12:45)
[2024-11-06 13:27] VITALS: BP 127/68; PULSE 68; RESP 16; O2SAT 97
== END 2024-11-06 12:03 | disposition home or self-care (01) ==
PROVIDERS: PCP Internal Medicine; Visit Provider Internal Medicine
DX: D50.9 Iron deficiency anemia, unspecified (principal)
CPT/HCPCS: 96365; J1439; J7050

== ENCOUNTER 2024-11-21 06:47 | Outpatient (CLI) | payer MEDICARE, SELFPAY ==
--- NOTE | ~2024-11-21 | XR_ITS ---
AP and lateral views of the right hip Clinical history: Pain Findings: No acute fracture or dislocation is seen. Osseous alignment is anatomic. There is mild dege nerative change of the right hip joint. Soft tissues are unremarkable. Impression: Mild degenerative change of the right hip joint. Reviewed, dictated and finalized at location . Impression: Mild degenerative change of the right hip joint.
--- OUTSIDE RECORDS SUMMARY | 2024-11-21 06:51 | XMS_ITS | Clinical Summary ---
Author Organization [facility] Address [address] [place] [address] Care Team Providers Care Appliance Assembler Name Role Phone Leticia Handley MD Primary Care Provider [phone] Allergies No known active allergies Medications clopidogrel [...] opa (SINEMET) 25-250 MG tabletIndicatio ns:Parkinson's disease ([facility]) TAKE 1 TABLET BY MOUTH 4 TIMES DAILY 360 tablet 3 03/24/2022 Active pramipexole (MIRAPEX) 1 MG tabletIndicatio ns:Parkinson's disease ([facility]) Take 3 tablets (3 mg [...] artery disease of n ative artery of [place] heart with stable angina pectoris 08/14/2016 Overview (05/27/2019): Overview: Coronary artery disease involving [place] coronary artery of [place] heart with other form of angina pectoris Dyslipidemia associated with type 2 diabetes mellitus ([facility]) 11/15/2015 Overview (05/27/2019): Overview: DM type 2 with diabetic dyslipidemia Hypertensive heart disease w ith congestive heart failure ([facility]) 08/02/2015 Overview (05/27/2019): Overview: Hypertensive heart disease with diastolic heart failure YANET on CPAP 08/02/2015 Overview (05/27/2019): Overview: YANET on CPAP Benign hypertension 04/26/2015 Overview (05/27/2019): Overview: HTN (hypertension), benign Dyslipidemia 04/26/2015 Overview (05/27/2019): Overview: Mixed dyslipidemia Cardiomyopathy ([facility]) 04/26/2015 Overview (05/27/2019): Overview: Cardiomyopathy Myocardial infarction ([facility]) 04/26/20 15 Overview (05/27/2019): Overview: [...] CDT Respiratory Rate 18 07/13/2021 2:45 PM DOWEL PIN WORKER Oxygen Saturation 96% 12/16/2021 8:52 AM CDT [...] age to complete this topic Insurance MEDICARE [employer] MEDICARE [employer] Care Teams Appliance Assembler Relationship Specialty Start Date End Date Leticia Handley MD [address] [place] [address] PCP - General INTERNAL MEDICINE 08/09/18
--- OUTSIDE RECORDS SUMMARY | 2024-11-21 06:51 | XMS_ITS | Encounter Summary ---
Author Organization [facility] Healthcare Address [address] [place] [address] Care Team Providers Care Stake Setter Name Role Phone Leticia Handley MD Primary Care Provider [phone] Encounter Details Date Type Department Care Team (Latest Contact Info) Description 10/21/2024 Results Follow-Up [facility] Medical Group Cardiology [address] [facility] [address] [place] [phone] [place] [address] [place] [address] [address] [facility] [place] [address] [place], [place] [id number] Transthoracic Echo (TTE) Complete W Doppler/CF, MCT [...] relatives? Three times a week 06/06/2022 Attends [employer] Services Not on file 06/06 Active Member [...] place to sleep or slept in a senior living (including now)? 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
--- OUTSIDE RECORDS SUMMARY | 2024-11-21 06:51 | XMS_ITS | Referral Summary ---
Author Organization [facility] [address] Address [address] [place] [address] Care Team Providers Care Shoe Stock Associate Name Role Phone Leticia Handley MD Primary Care Provider [phone] Encounters Date Type Department Care Team Description 10/28/2024 9:00 AM CDT Office Visit [facility] Medical [facility] Cardiology [address] [place] [address] Carla Rodrigues NP Autonomic orthostatic hypotension (Primary Dx); Edema, lower extremity; Coronary artery disease involving [place] coronary artery of [place] heart without angina pectoris; S/P aortic valve replacement with bioprosthetic valve; Postoperative atrial fibrillation (HCC) 10/21/2024 Results Follow-Up [facility] Cardiology [address] [facility] [address] [place] [phone] Forrest Chavira MD Transthoracic Echo (TTE) Complete W Doppler/CF, MCT Mobile Cardiac Telemetry Event Monitor 10/10/2024 2:00 PM CDT Ancillary Procedure [facility] Cardiology at [address] [place] [address] Coronary artery disease involving [place] coronary artery of [place] heart without angina pectoris; S/P aortic valve replacement with bioprosthetic valve 09/23/2024 3:00 PM CDT Ancillary Procedure [facility] Cardiology at [address] [place] [phone] Postoperative atrial fibrillation (HCC) 09/23/2024 2:30 PM CDT Office Visit [facility] Medical Group Cardiology at [address] [place] [phone] Forrest Chavira MD Coronary artery disease involving [place] coronary artery of [place] heart without angina pectoris (Primary Dx); Chronic heart failure with preserved ejection fraction (HFpEF) (HCC); Postoperative atrial fibrillation (HCC); S/P aortic valve replacement with bioprosthetic valve; YANET on CPAP; Chronic anticoagulation 09/09/2024 Orders Only [facility] Movement Disorders [address] [place] [address] Medicine 6th [place] [address] Isiah Brown MD PhD Sialorrhea 09/09/2024 Telephone [facility] Movement Disorders [address] [place] [phone] Charlette Arias RN 09/09/2024 11:15 AM CDT Procedure visit [facility] Movement Disorders [address] [place] [address] [place] [phone] Isiah Brown MD PhD Sialorrhea (Primary Dx); Parkinson's disease without dyskinesia or fluctuating manifestations (HCC) 09/02/2024 Telephone [facility] Movement Disorders [address] [place] [phone] Zelda Negron RN from Last 3 Months Allergies No known active allergies Medications bimatoprost (Lumigan) 0.01 % ophthalmic drops Administer 1 drop into both eyes nightly 06/03/19 22 Active aspirin 81 mg enteric coated tablet Take 1 tablet (81 mg total) by mouth daily 30 tablet 1 06/17/19 23 026 Active levothyroxine (SYNTHROID) 75 mcg tablet Take 1 tablet (75 mcg total) by mouth house steward/stewardess before breakfast 30 tablet 1 06/17/19 23 [...] dose. 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 Three times a week 06/06/2022 Attends Hoah[employer]ism Services Not on file 06/06 Active Member [...] on file Legal Sex Male 12:29 AM HAND UMBRELLA TIPPER Gender Identity Not on file Sexual Orientation Not on file Last Filed Vital Signs Vital Sign Reading Time Taken Comments Blood Pressure 96/52 10/28/2024 8:39 AM CDT Pulse 72 10/28/2024 8:39 AM CDT Temperature 36.8 C (98.2 F) 08/12/2024 12:47 PM CDT Respiratory Rate 18 04/10/2024 2:18 PM HAND UMBRELLA TIPPER Oxygen Saturation 97% 10/28/2024 8:39 AM CDT Inhaled Oxygen Concentration - - Weight 81.2 kg (179 lb) 10/28/2024 8:39 AM CDT Height 165.1 cm (5' 5) 10/28/2024 8:39 AM CDT Body Mass Index 29.79 10/28/2024 8:39 AM CDT Plan of Treatment Not on file Medical Devices Implanted Type Area Technical Producer Device Identifier Shelf Expiration Date Model / Serial / Lot Ziggy Medical Plate Bone Low Profile 6 Hole H Shape Ti 115.102.06 - [id number] Implanted:Qty: 1 on 06/05/2022 by Nicolás Arevalo MD at [facility] Plate N/A: Sternum [employer] 115.102. 06 / / Ziggy Medical Plate Bone Low Profile 4 Hole Box Ti 115.103.04 - [id number] Implanted:Qty: 1 on 06/05/2022 by Nicolás Arevalo MD at [facility] Plate N/A: Sternum [employer] 115.103. 04 / / Ziggy Medical Plate Bone Low Profile 6 Hole O Concave Ti 115.604.06 - [id number] Implanted:Qty: 1 on 06/05/2022 by Nicolás Arevalo MD at [facility] Plate N/A: Sternum [employer] 115.604. 06 / / [employer] Priscila ds Perimount Magna Ease 23mm Bioprosthesis [id number] - [id number] - [id number] Implanted:Qty: 1 on 06/05/2022 by Nicolás Arevalo MD at [facility] Prosthetic Valve N/A: Heart [employer] 07/18/2024 [id number] / [id number] / Ziggy Medical Screw Bone Slf Drl Full Thread Locking 3.5x14mm Ti 100.035.14 - [id number] Implanted:Qty: 10 on 06/05/2022 by Nicolás Arevalo MD at [facility] Screw N/A: Sternum [employer] 100.035. 14 / / Ziggy Medical Screw Bone Slf Drl Full Thread Locking 3.5x16mm Ti 100.035.16 - [id number] Implanted:Qty: 6 on 06/05/2022 by Nicolás Arevalo MD at [facility] Screw N/A: Sternum [employer] 100.035. 16 / / Procedures Procedure Name Priority Date/Time Associated Diagnosis Comments TRANSTHORACIC ECHO (TTE) COMPLETE W DOPPLER/CF W CONTRAST Routine 10/10/2024 2:56 PM CDT Coronary artery disease involving [place] coronary artery of [place] heart without angina pectoris S/P aortic valve replacement with bioprosthetic valve MCT - MOBILE CARDIAC TELEMETRY EVENT MONITOR Routine 09/23/2024 3:33 PM CDT Postoperative atrial fibrillation (HCC) POCT LIPID PANEL Routine 08/02/2023 10:2 9 AM CDT Coronary artery disease involving [place] coronary artery of [place] heart without angina pectoris EGFR Routine 06/16/2022 10:03 AM HAND UMBRELLA TIPPER HEMOGLOBIN A1C Routine 05/30/2022 12:59 PM HAND UMBRELLA TIPPER Preop testing Type 2 diabetes mellitus with [...] PM CDT Narrative 10/10/2024 4:31 PM CDT [facility] Medical Group Cardiology [address], [address], [place] [address] P:[phone] P:[phone] Echocardiographic Report ADDENDUM Patient Name: ALLI EAGLE H : 1940 Study Date: 10/10/2024 2:00:09 PM Gender: M Tech: Location: [facility] Ref Provider: FORREST CHAVIRA Height(Cm): 165 BSA: 1.92 Weight(Kg): 80.7 Heart Rate: 58 BP: 118 / 66 Quality: Good Order Provider: FORREST CHAVIRA PROCEDURES: Echocardiographic Report: Transthoracic echocardiogram with complete 2D, M-Mode, color Doppler examination and Definity contrast. INDICATIONS: Bioprosthetic Aortic Valve Replacement and I25.10 Atherosclerotic heart disease of [place] coronary artery without angina pectoris. MEASUREMENTS: 2D/MM [...] FINDINGS: Interpretation Site: Exam was interpreted at [facility]. Left Ventricle: Normal left ventricular systolic function. [...] Procedure Note Forrest Chavira MD - 10/13/2024 [facility] Medical Group Cardiology [address] [place] [address], [address], [place] [address] P:[phone] P:[phone] Echocardiographic Report ADDENDUM Patient Name: ALLI EAGLE H : 1940 Study Date: 10/10/2024 2:00:09 PM Gender: M Tech: Location: [facility] Ref Provider: FORREST CHAVIRA Height(Cm): 165 BSA: 1.92 Weight(Kg): 80.7 Heart Rate: 58 BP: 118 / 66 Quality: Good Order Provider: FORREST CHAVIRA PROCEDURES: Echocardiographic Report: Transthoracic echocardiogram with complete 2D, M-Mode, color Dopplerexamination and Definity contrast. INDICATIONS: Bioprosthetic Aortic Valve Replacement and I25.10 Atherosclerotic heartdisease of [place] coronary artery without angina pectoris. MEASUREMENTS: 2D/MM [...] FINDINGS: Interpretation Site: Exam was interpreted at [facility]. Left Ventricle: Normal left ventricular systolic function. [...] phy Narrative 10/26/2024 1:40 PM CDT AMBULATORY SENIOR NETWORK SECURITY ARCHITECT REPORT Patient Name: Alli Eagle Date of : 1940 Requesting Physician: Fan Date of interpretation: 10/26/24 Type of monitor : 30 day event monitor Date of the study/Enrollment period: Initiated on 09/23/2024 Indication: History of atrial fibrillation Quality of the study: Favorable Interpretation: The basic rhythm is sinus with normal WA interval the QRS duration is 0.12 seconds [...] was used to complete this document, therefore, hosiery mater variances may occur. Juan Wilder MD [facility] 10/26/24 Procedure Note Juan Wilder MD - 10/26/2024 AMBULATORY SENIOR NETWORK SECURITY ARCHITECT REPORT Patient Name: Alli Eagle Date of : 1940 Requesting Physician: Fan Date of interpretation: 10/26/24 Type of monitor : 30 day event monitor Date of the study/Enrollment period: Initiated on 09/23/2024 Indication: History of atrial fibrillation Quality of the study: Favorable Interpretation: The basic rhythm is sinus with normal WA interval the QRSduration is 0.12 seconds QT [...] was 1 4 [place] [address] at 4:34 a.m.. The patient submitted a [...] software was used to complete this document, therefore,hosiery mater variances may occur. Juan Wilder MD [facility] 10/26/24 Forrest Chavira MD [facility] Final Result * POCT lipid panel (08/02/2023 10:29 AM CDT) Pathologist [facility] Cholesterol, POC <100 mg/dL Comment:GLU = 133 HDL, POC <15 mg/dL Triglycerides, POC 70 mg/dL LDL Cholesterol POC 71 mg/dL Chol/HDL Ratio, POC N/A Non-HDL Cholesterol, POC N/A mg/dL Cholesterol Total, POC <100 mg/dL Capillary blood 08/02/2023 1 0:29 AM CDT Rosales Watt MD POINT OF CARE TEST ORDER CHANEL Final Result * eGFR (06/16/2022 10:03 AM HAND UMBRELLA TIPPER) Pathologist [facility] eGFR 67 mL/min/1. 73 m2 RYAN LUX [...] reviewed 2021. Blood 06/16/2022 10:0 3 AM HAND UMBRELLA TIPPER 06/16/2022 10:03 AM HAND UMBRELLA TIPPER Nicolás Arevalo MD LAB BLOOD ORDERABLES Final Res ult Performing Organization Address [facility] Co de Phone Number RYAN LUX [address] [place] [address] * Hemoglobin A1c (05/30/2022 12:59 PM HAND UMBRELLA TIPPER) Hgb A1C 5.5 4.0 - 5.6 % RYAN LUX Estimated Average Glucose 111 mg/dL RYAN LUX Comment: The ADA recommends reporting an estimated Average Glucose (eAG) with all Hemoglobin A1c results using the equation derived from a study of 507 normal and diabetic adults. Minority populations were underrepresented and children were not included. (Diabetes Care 31:1618-3876, 2008). The eAG is not equivalent to a fasting glucose. Blood 05/30/2022 12:5 9 PM HAND UMBRELLA TIPPER 05/30/2022 1:03 PM HAND UMBRELLA TIPPER Nicolás Arevalo MD LAB BLOOD ORDERABLES Final Res ult Performing Organization Address City/[facility] Co de Phone Number RYAN LUX [phone] [facility] hint [place], [place] [phone] from Last 3 Months or Most Recently Relevant to Health Maintenance Insurance MEDICARE [facility] MEDICARE SUPPLEMENT INSURANCE MEDICARE [facility] MEDICARE SUPPLEMENT MEDICARE [facility] MEDICARE SUPPLEMENT Advance Directives For more information, please contact: [phone] * Full Code (Latest Code Status on File) Date Activated Date Inactivated Comments 06/05/2022 2:49 PM 06/16/2022 5:28 PM Care Teams Shoe Stock Associate Relationship Specialty Start Date End Date Leticia Handley MD [address] [place], [place] [phone] PCP - General Internal Medicine 05/08/23
--- OUTSIDE RECORDS SUMMARY | 2024-11-21 06:51 | XMS_ITS | Patient Health Record ---
Author Organization [facility] Address [address] [place], [place] [phone] Care Team Providers Care Project Asst Name Role Phone ANASTASIIA ORNELAS Unavailable [phone] Estela Handley Unavailable Unavailable CARLOS STEVE Unavailable [phone] OPAL ROBISON Unavailable [phone] Allergies No Known Allergies Reason For Referral [...] 09/25/2024 Encounters Encounter Location Date Provider Diagnosis [address] [id number] 09/25/2024 OPAL ROBISON Tinea unguium B35.1 ; Pain in right foot M79.671 ; Pain in left foot M79.672 ; Atherosclerosis of [place] arteries of extremities with intermittent claudication, bilateral legs I70.213 and Acquired keratosis [keratoderma] palmaris et plantaris L85.[address] [id number] 11/29/2023 CARLOS STEVE Other hammer toe(s) (acquired), right foot M20.41 ; Tinea unguium B35.1 ; Other hammer toe(s) (acquired), left foot M20.42 ; Pain in right toe(s) M79.674 ; Pain in left toe(s) M79.675 ; Pain in right foot M79.671 ; Pain in left foot M79.672 ; 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[place] arteries of extremities, bilateral legs I70.203 and Acquired keratosis [keratoderma] palmaris et plantaris L85.[address] [id number] 01/31/2024 CARLOS POWER Other hammer toe(s) (acquired), right foot M20.41 ; Tinea unguium B35.1 ; Other hammer toe(s) (acquired), left foot M20.42 ; Pain in right toe(s) M79.674 ; Pain in left toe(s) M79.675 ; Pain in right foot M79.671 ; Pain in left foot M79.672 ; 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[place] arteries of extremities, bilateral legs I70.203 and Acquired keratosis [keratoderma] palmaris et plantaris L85.[address] [id number] 04/10/2024 CARLOS POWER Other hammer toe(s) (acquired), right foot M20.41 ; Tinea unguium B35.1 ; Other hammer toe(s) (acquired), left foot M20.42 ; Pain in right toe(s) M79.674 ; Pain in left toe(s) M79.675 ; Pain in right foot M79.671 ; Pain in left foot M79.672 ; 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[place] arteries of extremities, bilateral legs I70.203 and Acquired keratosis [keratoderma] palmaris et plantaris L85.[address] [id number] 05/22/2024 ANASTASIIA ORNELAS Tinea unguium B35.1 ; Pain in right foot M79.671 ; Pain in left foot M79.672 ; Atherosclerosis of [place] arteries of extremities with intermittent claudication, bilateral legs I70.213 and Acquired keratosis [keratoderma] palmaris et plantaris L85.[address] [place] [id number] 07/24/2024 ANASTASIIA ORNELAS Tinea unguium B35.1 ; Pain in right foot M79.671 ; Pain in left foot M79.672 ; Atherosclerosis of [place] arteries of extremities with [...] toe(s) (ICD-10 - M79.674) 07/24/2024 Atherosclerosis of [place] arteries of extremities with intermittent claudication, bilateral legs (ICD-10 - I70.213) 05/22/2024 Atherosclerosis of [place] arteries of extremities with intermittent claudication, bilateral legs (ICD-10 - I70.213) 04/10/2024 Pain in right toe(s) (ICD-10 - M79.674) 09/25/2024 Atherosclerosis of [place] arteries of extremities with [...] (ICD-10 - M79.672) 11/29/2023 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[place] arteries of extremities, bilateral legs (ICD-10 - I70.203) Patient educated on risks and aggravating factors of PVD, including conservative treatment options such as a diet and exercise regimen to aid in slowing progression of vascular disease 01/31/2024 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[place] arteries of extremities, bilateral legs (ICD-10 - I70.203) Patient educated on risks and aggravating factors of PVD, including conservative treatment options such as a diet and exercise regimen to aid in slowing progression of vascular disease 04/10/2024 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[place] arteries of extremities, bilateral legs [...] Details Provider Name:OPAL GUZMAN, 12/04/2024 02:30:00 PM, [address] [place] [address], [id number], Insurance Providers Payer Name Payer Address Payer Phone Subscriber Number Group Number Insured Name Patient Relationship to Insured Coverage Start Date Coverage End Date Medicare Part B [place] [address] [place] [phone] [id number] KATIE CRUZ Self - patient is the insured [facility] ([facility]) ATTN CLAIMS [address] [place] [address] [id number] KATIE CRUZ Self - patient is the insured 4 Medical (General) History Surgical History Surgery Date(Month/Year) Total ankle replacement 2014
--- OUTSIDE RECORDS SUMMARY | 2024-11-21 06:51 | XMS_ITS | Encounter Summary ---
Author Organization [facility] Address [address] [place] [address] Care Team Providers Care Physical Anthropologist Name Role Phone Leticia Handley MD Primary Care Provider Nilesh Mojica DO Unavailable Enoc Sheridan PA-C Unavailable Encounter Details Date Type Department Care Team (Late st Contact Info) Description 12/06/2016 [facility] Outpatient Visit [facility] Orthopedics - Radiology [address] [place] [address] Nilesh Mojica [facility] Medical [address] [phone] Social History Tobacco Use Types [...] st Contact Info) Description 03/09/2025 10:40 AM MANUFACTURING PROJECT ENGINEER Office Visit [facility] Health Orthopedics [address], [address] [address] Nilesh Mojica [address] [address] documented as of this encounter Visit Diagnoses Not on filedocumented in this encounter Care Teams Physical Anthropologist Relationship Specialty Start Date End Date Leticia Handley MD PCP - General Internal Medicine 12/06/16 Nilesh Mojica DO Orthopedic Surgery 12/06/16 Enoc Sheridan PA-C [address] [place] [address] Physician Doper Physician Doper 03/13/17 documented as of this encounter
--- OUTSIDE RECORDS SUMMARY | 2024-11-21 06:51 | XMS_ITS | Clinical Summary ---
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 [...] placement 11/29/2016 Coronary artery disease invo lving cherokee coronary artery of cherokee heart without angina pectoris 08/14/2016 Overview (09/29/2016): Coronary artery disease involving cherokee coronary artery of cherokee heart with other form of angina pectoris [...] Description 10/28/2024 9:00 AM CDT Office Visit [facility] [address] [facility] [address] [place] [phone] Carla Rodrigues NP Autonomic orthostatic hypotension (Primary Dx); Edema, lower extremity; Coronary artery disease involving cherokee coronary artery of cherokee heart without angina pectoris; S/P aortic valve replacement with bioprosthetic valve; Postoperative atrial fibrillation (HCC) 10/21/2024 Results Follow-Up [facility] [address] [facility] [address] [place] [phone] Forrest Chavira MD Transthoracic Echo (TTE) Complete W Doppler/CF, MCT Mobile Cardiac Telemetry Event Monitor 10/10/2024 2:00 PM CDT Ancillary Procedure [facility] at [address] [place] [address] Coronary artery disease involving cherokee coronary artery of cherokee heart without angina pectoris; S/P aortic valve replacement with bioprosthetic valve 09/23/2024 3:00 PM CDT Ancillary Procedure [facility] at [address] [place] [address] Postoperative atrial fibrillation (HCC) 09/23/2024 2:30 PM CDT Office Visit [facility] at [address] [place] [phone] Forrest Chavira MD Coronary artery disease involving cherokee coronary artery of cherokee heart without angina pectoris (Primary Dx); Chronic heart failure with preserved ejection fraction (HFpEF) ([facility]); Postoperative atrial fibrillation (HCC); S/P aortic valve replacement with bioprosthetic valve; YANET on CPAP; Chronic anticoagulation 09/09/2024 11:15 AM CDT Procedure visit [facility] Movement Disorders [address] [place] [address] Advanced Medicine 6th [place] [address] [place] [phone] Isiah Brown MD PhD Sialorrhea (Primary Dx); Parkinson's disease without dyskinesia or fluctuating manifestations (HCC) 09/09/2024 Orders Only [facility] Movement Disorders [address] [place] [address] Medicine 6th [place] [address] [place] [address] Isiah Brown MD PhD Sialorrhea 09/09/2024 Telephone [facility] Movement Disorders [address] [place] [phone] Charlette Arias RN 09/02/2024 Telephone [facility] Movement Disorders [address] [place] [address] [place] [phone] Zelda Negron, RN from Last 3 Months Surgical History [...] Hypertension Hypertension Adiposity Obesity Sleep apnea CPAP TN (myocardial infarction) ([facility]) 2014 CAD (coronary artery disease) Parkinson's disease ([facility]) Skin cancer Back Nonrheumatic aortic (valve) stenosis Type 2 diabetes mellitus ([facility]) H /O CHF (congestive heart failure) ([facility]) Cardiomyopathy ([facility]) Chronic fatigue syndrome Arthritis Benign prostatic hyperplasia [...] Legal Sex Male 12:29 AM REGISTERED NURSE OBSTETRICS Gender Identity Not on file Sexual Orientation Not on file Obstetrics History Last Filed Vital Signs Vital Sign Reading Time Taken Comments Blood Pressure 96/52 10/28/2024 8:39 AM CDT Pulse 72 10/28/2024 8:39 AM CDT Temperature 36.8 C (98.2 F) 08/12/2024 12:47 PM CDT Respiratory Rate 18 04/10/2024 2:18 PM REGISTERED NURSE OBSTETRICS Oxygen Saturation 97% 10/28/2024 8:39 AM CDT [...] 09/10/2012, 06/13/2004 Medical Devices Implanted Type Area Quantity Surveyor Device Identifier Shelf Expiration Date Model / Serial / Lot Ziggy Medical Plate Bone Low Profile 6 Hole H Shape Ti 115.102.06 - [id number] Implanted:Qty: 1 on 06/05/2022 by Nicolás Arevalo MD at [facility] Plate N/A: Sternum [employer] 115.102. 06 / / Ziggy Medical Plate Bone Low Profile 4 Hole Box Ti 115.103.04 - [id number] Implanted:Qty: 1 on 06/05/2022 by Nicolás Arevalo MD at [facility] Plate N/A: Sternum [employer] 115.103. 04 / / Ziggy Medical Plate Bone Low Profile 6 Hole O Concave Ti 115.604.06 - [id number] Implanted:Qty: 1 on 06/05/2022 by Nicolás Arevalo MD at [facility] Plate N/A: Sternum [employer] 115.604. 06 / / B[employer]ti [employer] Von-Tim ds Perimount Magna Ease 23mm Bioprosthesis [id number] - [id number] - [id number] Implanted:Qty: 1 on 06/05/2022 by Nicolás Arevalo MD at [facility] Prosthetic Valve N/A: Heart [employer] 07/18/2024 [id number] / [id number] / Ziggy Medical Screw Bone Slf Drl Full Thread Locking 3.5x14mm Ti 100.035.14 - [id number] Implanted:Qty: 10 on 06/05/2022 by Nicolás Arevalo MD at [facility] Screw N/A: Sternum [employer] 100.035. 14 / / Ziggy Medical Screw Bone Slf Drl Full Thread Locking 3.5x16mm Ti 100.035.16 - [id number] Implanted:Qty: 6 on 06/05/2022 by Nicolás Arevalo MD at [facility] Screw N/A: Sternum [employer] 100.035. 16 / / Procedures Procedure Name Priority Date/Time Associated Diagnosis Comments TRANSTHORACIC ECHO (TTE) COMPLETE W DOPPLER/CF W CONTRAST Routine 10/10/2024 2:56 PM CDT Coronary artery disease involving cherokee coronary artery of cherokee heart without angina pectoris S/P aortic valve replacement with bioprosthetic valve MCT - MOBILE CARDIAC TELEMETRY EVENT MONITOR Routine 09/23/2024 3:33 PM CDT Postoperative atrial fibrillation (HCC) POCT LIPID PANEL Routine 08/02/2023 10:2 9 AM CDT Coronary artery disease involving cherokee coronary artery of cherokee heart without angina pectoris EGFR Routine 06/16/2022 10:03 AM REGISTERED NURSE OBSTETRICS HEMOGLOBIN A1C Routine 05/30/2022 12:59 PM REGISTERED NURSE OBSTETRICS Preop testing Type 2 diabetes mellitus with [...] PM CDT Narrative 10/10/2024 4:31 PM CDT [facility] Cardiology [address], [address], [place] [address] P:[phone] P:[phone] Echocardiographic Report ADDENDUM Patient Name: ALLI EAGLE H : 1940 Study Date: 10/10/2024 2:00:09 PM Gender: M Tech: SW Location: [facility] Ref Provider: FORREST CHAVIRA Height(Cm): 165 BSA: 1.92 Weight(Kg): 80.7 Heart Rate: 58 BP: 118 / 66 Quality: Good Order Provider: FORREST CHAVIRA PROCEDURES: Echocardiographic Report: Transthoracic echocardiogram with complete 2D, M-Mode, color Doppler examination and Definity contrast. INDICATIONS: Bioprosthetic Aortic Valve Replacement and I25.10 Atherosclerotic heart disease of cherokee coronary artery without angina pectoris. MEASUREMENTS: 2D/MM [...] FINDINGS: Interpretation Site: Exam was interpreted at [facility]. Left Ventricle: Normal left ventricular systolic function. [...] MD 2024-10-10 16:30:26 CDT Electronically Amended By: oFrrest Chavira MD 10/13/2024 1:27:10 PM CDT [ADDENDUM] Procedure Note Forrest Chavira MD - 10/13/2024 [facility] Cardiology [facility], [address], [place] [address] P:[phone] P:[phone] Echocardiographic Report ADDENDUM Patient Name: ALLI EAGLE [...] Valve Replacement and I25.10 Atherosclerotic heartdisease of cherokee coronary artery without angina pectoris. MEASUREMENTS: 2D/MM [...] FINDINGS: Interpretation Site: Exam was interpreted at [facility]. Left Ventricle: Normal left ventricular systolic function. [...] phy Narrative 10/26/2024 1:40 PM CDT AMBULATORY POWERHOUSE ELECTRICIAN APPRENTICE REPORT Patient Name: Alli Eagle Date of : 1940 Requesting Physician: Fan Date of interpretation: 10/26/24 Type of monitor : 30 day event monitor Date of the study/Enrollment period: Initiated on 09/23/2024 Indication: History of atrial fibrillation Quality of the study: Favorable Interpretation: The basic rhythm is sinus with normal SD interval the QRS duration is 0.12 seconds [...] was used to complete this document, therefore, deaf/hard of hearing specialist variances may occur. Juan Wilder MD [facility] 10/26/24 Procedure Note Juan Wilder MD - 10/26/2024 AMBULATORY POWERHOUSE ELECTRICIAN APPRENTICE REPORT Patient Name: Alli Eagle Date of : 1940 Requesting Physician: Fan Date of interpretation: 10/26/24 Type of monitor : 30 day event monitor Date of the study/Enrollment period: Initiated on 09/23/2024 Indication: History of atrial fibrillation Quality of the study: Favorable Interpretation: The basic rhythm is sinus with normal SD interval the QRSduration is 0.12 seconds QT [...] was 1 4 [place] [address] at 4:34 a.m.. The patient submitted a [...] software was used to complete this document, therefore,deaf/hard of hearing specialist variances may occur. Juan Widler MD [facility] 10/26/24 Forrest Chavira MD [facility] Final Result * POCT lipid [...] Final Result * eGFR (06/16/2022 10:03 AM REGISTERED NURSE OBSTETRICS) eGFR 67 mL/min/1. 73 m2 RYAN LUX [...] reviewed 2021. Blood 06/16/2022 10:0 3 AM REGISTERED NURSE OBSTETRICS 06/16/2022 10:03 AM REGISTERED NURSE OBSTETRICS Nicolás Arevalo MD LAB BLOOD ORDERABLES Final Res ult Performing Organization Address [facility] Co de Phone Number RYAN [address] [place] [address] * Hemoglobin A1c (05/30/2022 12:59 PM REGISTERED NURSE OBSTETRICS) [facility] Hgb A1C 5.5 4.0 - 5.6 % RYAN Estimated Average Glucose 111 mg/dL RYAN Comment: The ADA recommends reporting an estimated Average Glucose (eAG) with all Hemoglobin A1c results using the equation derived from a study of 507 normal and diabetic adults. Minority populations were underrepresented and children were not included. (Diabetes Care 31:8557-8693, 2008). The eAG is not equivalent to a fasting glucose. Blood 05/30/2022 12:5 9 PM REGISTERED NURSE OBSTETRICS 05/30/2022 1:03 PM REGISTERED NURSE OBSTETRICS Nicolás Arevalo MD LAB BLOOD ORDERABLES Final Res ult Performing Organization Address [facility] Co de Phone Number RYAN [address] [address] [facility] [place] [address] from Last 3 Months or Most Recently Relevant to Health Maintenance Insurance MEDICARE [facility] MEDICARE SUPPLEMENT INSURANCE MEDICARE [facility] MEDICARE SUPPLEMENT MEDICARE [facility] MEDICARE SUPPLEMENT Advance Directives For more information, please contact: [phone] * Full Code (Latest Code Status on File) Date Activated Date Inactivated Comments 06/05/2022 2:49 PM 06/16/2022 5:28 PM Care Teams Rn Transplant Relationship Specialty Start Date End Date Leticia Handley MD [address] [place] [address] PCP - General Internal Medicine 05/08/23
--- OUTSIDE RECORDS SUMMARY | 2024-11-21 06:51 | XMS_ITS ---
Author Organization [facility] Address [address] [place], [place] [id number] Care Team Providers Care Regulatory Auditor Name Role Phone ANASTASIIA ORNELAS Unavailable [phone] Estela Handley Unavailable Unavailable OPAL ROBISON Unavailable [phone] REASON FOR VISIT *General care Medications Medication SIG (Take, Route, Frequency, Duration) Notes Start Date End Date Status Aspirin 81 MG 1 tablet Orally Once a day Active Vital Signs Height 66.00 in 09/25/2024 Weight 200 lbs 09/25/2024 BMI 32.28 kg/m2 09/25/2024 Height-cm 167.64 cm 09/25/2024 Weight-kg 90.72 kg 09/25/2024 Encounters Encounter Location Date Provider Diagnosis [address] [id number] 09/25/2024 OPAL ROBISON Tinea unguium B35.1 ; Pain in right foot M79.671 ; Pain in left foot M79.672 ; Atherosclerosis of [place] arteries of extremities with intermittent claudication, bilateral [...] foot (ICD-10 - M79.672) 09/25/2024 Atherosclerosis of [place] arteries of extremities with intermittent claudication, bilateral [...] develop. Provider Name:OPAL GUZMAN, 12/04/2024 02:30:00 PM, [address] [place] [address], [id number], Progress Notes * KATIE CRUZDOB:1940 (84 yo M)Acc No.[id number]:09/25/2024 Patient: KATIE HOGAN Provider: Royer ROBISON :1940 A ge:83 Y S ex:Male Date:09/25/2024 Address: [place] [address] Subjective: * Chief Complaints: * 1 . [...] Patient denies c hest pain, history of PR, irregular heartbeat. M usculoskeletal: Patient complains of [...] - M79.672 4 . 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 Modifiers: Q8 16436 DEBRIDE NAIL, 6 OR MORE. Modifiers: 59, Q8 * Electronic signature of BRIGHT ROBISON DPM on 11/21/2024 at 06:51 AM CDT Sign off status: Pending * Provider: Royer ROBISON Date: 0 09/25/2024 Generated for Joseph Gordon/Enzo on: 0 11/21/2024 06:51 AM CDT History and Physical Notes * [...]
--- OUTSIDE RECORDS SUMMARY | 2024-11-21 06:52 | XMS_ITS | Clinical Summary ---
Author Organization [facility] Address [address] [place] [address] Care Team Providers Care Ad Compositor Name Role Phone Leticia Handley MD Primary Care Provider [phone] Nilesh Mojica DO Unavailable [phone] Enoc Sheridan PA-C Unavailable [phone] Source Comments [facility],non-owned Affiliates and Associated Physician Practices is amultiple site organization consisting of ambulatory clinics and hospital sitesin [place], [place], [place] and [place]. This disclosure is being madepursuant to the Care Everywhere program and may not contain all information available regarding this patient. Last updated 18.[facility] Fresh ! Allergies No known active allergies Medications * [...] st Contact Info) Description 03/09/2025 10:40 AM PROGRAM THERAPIST Office Visit [facility] Health Orthopedics [address] [facility] ([place], [place]), [address] [address] Nilesh Mojica DO [facility] Medical [address] [address] Health Maintenance Due Date Last Done Comments MEDICARE AWV 12 MONTHS 1940 DTAP/TDAP/TD VACCINES (1 - Tdap) 1957 PNEUMOCOCCAL VACCINE 50+ (1 of 1 - PCV) 1988 ZOSTER VACCINE (1 of 2) 1988 Respiratory Syncytial Virus (RSV) Vaccine Pt: or over 60 yrs (1 - 1-dose 75+ series) 2013 COVID-19 VACCINE (1 - season) 2024 DEPRESSION SCREENING 05/07/2024 03/12/2023 INFLUENZA VACCINE (#1) 2025 8, 02/04/2007, 03/22/2006, Additional history exists HEPATITIS B [...] this topic Medical Devices Implanted Type Area Easter Bunny Device Identifier Shelf Expiration Date Model / Serial / Lot Stem Tlr Inbone Ii 1 Lg 10mm Ankl Implanted:Qty : 1 on 03/08/2017 by Nilesh Mojica DO at [facility] Left: Ankle [employer] 12/07/2023 [id number] / / [id number] 4 Long Tibial Tray Implanted:Qty : 1 on 03/08/2017 by Nilesh Mojica DO at [facility] Left: Ankle [employer] 01/09/2025 [id number] / / [id number] Cmpnt Tlr Inbone 3 Dome Ankl Sulcus Implanted:Qty : 1 on 03/08/2017 by Nilesh Mojica DO at [facility] Left: Ankle [employer] 12/09/2024 [id number] / / [id number] Infinity Poly Insert Implanted:Qty : 1 on 03/08/2017 by Nilesh Mojica DO at [facility] Left: Ankle [employer] 10/22/2024 [id number] / / [id number] Screw Qckfix Kyler Canc 4.0 X 46 Implanted:Qty : 1 on 03/08/2017 by Nilesh Mojica DO at [facility] Left: Ankle Arthrex Inc [id number] / / Plate 61mm 3 Hl Hk Lck Ss Ft/Ankl Mdl Implanted:Qty : 1 on 03/08/2017 by Nilesh Mojica DO at [facility] Left: Ankle [employer] [id number] / / Screw 3.5mm 38mm T15 Hexalobe Ft Ankl Implanted:Qty : 1 on 03/08/2017 by Nilesh Mojica DO at [facility] Left: Ankle [employer] AR-8835-38 / / Graft Bone Othblst Ii Dbm Canc 1cc [facility] - [id number] Implanted:Qty : 1 on 03/08/2017 by Nilesh Mojica DO at [facility] Left: Ankle Integra [employer] 01/01/2019 / [id number] / [id number] Explanted Type Area Easter Bunny Device Identifier Shelf Expiration Date Model / Serial / Lot Jonathan Total Ank Replacement Explanted:Qty: 1 on 03/08/[address] [facility] Left: Ankle [employer] TOTAL ANKLE REPL MORE / / Screw Qckfix Kyler Canc 4.0 X 46 Explanted:Qty: 1 on 03/08/2017 by Nilesh Mojica DO at [facility] Left: Ankle Ar[employer]rex Inc [id number]-[id number] PTS / / Insurance MEDICARE MEDICARE SUPPLEMENT [facility] Advance Directives Documents on File Type Date Recorded Patient Body Painter Expl anation Adv Directive/Living Will/POA 03/12/2017 8:08 PM * Full Code (Latest Code Status on File) Date Activated Date Inactivated Comments 03/08/2017 12:28 PM 03/09/2017 4:41 PM Care Teams Ad Compositor Relationship Specialty Start Date End Date Leticia Handley MD PCP - General Internal Medicine 12/06/16 Nilesh Mojica DO Orthopedic Surgery 12/06/16 Enoc Sheridan, PAMonieC [address] [address] Physician Drama Teacher Physician Drama Teacher 03/13/17
--- OUTSIDE RECORDS SUMMARY | 2024-11-21 06:52 | XMS_ITS | Encounter Summary ---
Author Organization [facility] Address [address] [place] [address] Care Team Providers Care Clothing Examiner Name Role Phone Leticia Handley MD Primary Care Provider [phone] Karrie Mcgregor DO Primary Care Provide r Leticia Handley MD Primary Care Provider [phone] Encounter Details Date Type Department Care Team (Late st Contact Info) Description 08/15/2016 Orders Only [facility] ProviderNila MD [address] [place] [address] Social History Tobacco Use Types Packs/Day Years Used Date Smoking Tobacco: Never Alcohol Use Standard Drinks/Week Comments Yes 0 (1 standard drink = 0.6 oz pur e alcohol) Sex and Gender Information Value Date Recorded Sex Assigned at Not on file Legal Sex Male 12:29 AM BIT WELDER Gender Identity Not on file Sexual [...] on filedocumented in this encounter Care Teams Clothing Examiner Relationship Specialty Start Date End Date Leticia Handley MD [address] [place] [address] PCP - General 08/11/16 03/21/23 Karrie Mcgregor DO [address] [place] [address] PCP - General Psychiatry 03/22/23 05/07/23 Leticia Handley MD [address] [place] [address] PCP - General Internal Medicine 05/08/23 documented as of this encounter
--- OUTSIDE RECORDS SUMMARY | 2024-11-21 06:52 | XMS_ITS | Encounter Summary ---
Author Organization [facility] Address [address] [place] [address] Care Team Providers Care Satellite Dish Repairer Name Role Phone Leticia Handley MD Primary Care Provider [phone] Karrie Mcgregor DO Primary Care Provide r Leticia Handley MD Primary Care Provider [phone] Encounter Details Date Type Department Care Team (Late st Contact Info) Description 04/22/2019 Telephone [facility] Radiology [address] [place] [address] Steff Shah, RT Social History Tobacco Use Types Packs/Day Years Used Date Smoking Tobacco: Never Smokeless Tobacco: Never Alcohol Use Standard Drinks/Week Comments Yes 0 (1 standard drink = 0.6 oz pur e alcohol) Sex and Gender Information Value Date Recorded Sex Assigned at Not on file Legal Sex Male 12:29 AM PUBLIC SERVICE DIRECTOR Gender Identity Not on file Sexual Orientation Not on file documented as of this encounter Plan of Treatment Not on file documented as of this encounter Visit Diagnoses Not on filedocumented in this encounter Care Teams Satellite Dish Repairer Relationship Specialty Start Date End Date Leticia Handley MD [address] [place] [address] PCP - General 08/11/16 03/21/23 Karrie Mcgregor DO [address] [place] [address] PCP - General Psychiatry 03/22/23 05/07/23 Leticia Handley MD [address] [place] [address] PCP - General Internal Medicine 05/08/23 documented as of this encounter
[2024-11-21 07:03] LABS: Hematocrit 38.7 % (37.0-46.0); Hemoglobin 12.2 g/dL (12.4-15.3); Mean Corpuscular HGB Conc 31.5 g/dL (32-36); Mean Corpuscular Hemoglobin 29.9 pg (27.0-31.0); Mean Corpuscular Volume 94.9 fL (78.0-102.0); Platelet Count Result 148 K/mm3 (150-420); Red Blood Count 4.08 M/mm3 (4.70-6.10); White Blood Count 6.7 K/mm3 (4.8-10.8)
[2024-11-21 08:38] LABS: Iron 92 ug/dL (49-181)
[2024-11-21 09:15] LABS: Ferritin 302.00 ng/mL (11.1-264)
== END 2024-11-21 06:48 | disposition home or self-care (01) ==
PROVIDERS: PCP Internal Medicine; Visit Provider Internal Medicine
DX: D50.9 Iron deficiency anemia, unspecified (principal); M25.551 Pain in right hip
CPT/HCPCS: 36415; 73502; 82728; 83540; 85027

== ENCOUNTER 2024-12-08 06:52 | Outpatient (CLI) | payer MEDICARE, SELFPAY ==
--- OUTSIDE RECORDS SUMMARY | 2024-12-08 06:57 | XMS_ITS | Referral Summary ---
Author Organization [facility] [address] Address [address] [place] [address] Care Team Providers Care Principal Developer Name Role Phone Leticia Handley MD Primary Care Provider [phone] Encounters Date Type Department Care Team Description 10/28/2024 9:00 AM CDT Office Visit [facility] Medical [facility] Cardiology [address] [place] [address] Carla Rodrigues NP Autonomic orthostatic hypotension (Primary Dx); Edema, lower extremity; Coronary artery disease involving [place] coronary artery of [place] heart without angina pectoris; S/P aortic valve replacement with bioprosthetic valve; Postoperative atrial fibrillation (HCC) 10/21/2024 Results Follow-Up [facility] Cardiology [address] [facility] [address] [place] [phone] Forrest Brown MD Transthoracic Echo (TTE) Complete W Doppler/CF, MCT Mobile Cardiac Telemetry Event Monitor 10/10/2024 2:00 PM CDT Ancillary Procedure [facility] Cardiology at [address] [place] [address] Coronary artery disease involving [place] coronary artery of [place] heart without angina pectoris; S/P aortic valve replacement with bioprosthetic valve 09/23/2024 3:00 PM CDT Ancillary Procedure [facility] Cardiology at [address] [place] [phone] Postoperative atrial fibrillation (HCC) 09/23/2024 2:30 PM CDT Office Visit [facility] Group Cardiology at [address] [place] [phone] Forrest Brown MD Coronary artery disease involving [place] coronary artery of [place] heart without angina pectoris (Primary Dx); Chronic heart failure with preserved ejection fraction (HFpEF) (HCC); Postoperative atrial fibrillation (HCC); S/P aortic valve replacement with bioprosthetic valve; YANET on CPAP; Chronic anticoagulation 09/09/2024 Orders Only [facility] [address] [place] [address] Medicine 6th [place] [address] [place] [address] Isiah Brown MD PhD Sialorrhea 09/09/2024 Telephone [facility] [address] [place] [address] [address] [place] [address] Charlette Arias RN 09/09/2024 11:15 AM CDT Procedure visit [facility] [address] [place] [address] 6th [place] [address] [place] [address] Isiah Brown MD PhD Sialorrhea (Primary Dx); Parkinson's disease without dyskinesia or fluctuating manifestations (HCC) from Last 3 Months Allergies No known active allergies Medications bimatoprost (Lumigan) 0.01 % ophthalmic drops Administer 1 drop into both eyes nightly 2 Active aspirin 81 mg enteric coated tablet Take 1 tablet (81 mg total) by mouth daily 30 tablet 1 3 09/24/19 26 Active levothyroxine (SYNTHROID) 75 mcg tablet Take 1 tablet (75 mcg total) by mouth stenotype operator before breakfast 30 tablet 1 3 Active polyethylene glycol (MIRALAX) 17 gram packetIndications :constipation Take 1 packet (17 g total) by mouth daily 20 packet 1 3 Active terazosin (HYTRIN) 10 mg capsule 3 Active vit A/C/E ac/ZnOx/cupric oxide (EYE VITAMIN AND MINERALS ORAL) Take by mouth A ctive atorvastatin (LIPITOR) 20 mg tablet TAKE 1 TABLET BY MOUTH EVERY DAY 90 tablet 1 3 Active pramipexole (MIRAPEX) 1 mg tablet Take 3 tablets (3 mg total) by mouth 3 (three) times a day 810 tablet 3 4 Active rasagiline (AZILECT) 0.5 mg tabletIndications :Idiopathic Parkinsonism 1 tab qam 90 tablet 3 4 Active ferrous sulfate 325 mg (65 mg of elemental iron) tablet Take 1 tablet (325 mg total) by mouth 3 (three) times a day 4 Active brimonidine-timol oL (COMBIGAN) 0.2-0.5 % ophthalmic solution Administer 1 drop into both eyes 2 (two) times a day Active mecobalamin, vitamin B12, (B12 Active) 1,000 mcg tablet,chewable Take 1,000 mcg by mouth daily 5 Active vitamin b complex tablet Take 1 tablet by mouth daily 5 Active carbidopa-levodop a (SINEMET) 25-250 mg per tabletIndications :Idiopathic Parkinsonism Take 2 tablets by mouth 3 (three) times a day 540 tablet 3 5 08/14/19 26 Active carbidopa-levodop a (SINEMET) 25-100 mg per tabletIndications :Parkinsonism Take 1.5 tab tid 405 tablet [address] (PROTONIX) 40 mg EC tablet TAKE 1 TABLET BY MOUTH EVERY DAY 90 tablet 3 5 Active potassium chloride ER 10 mEq CR tablet TAKE 1 TABLET/CAPSULE (10 MEQ TOTAL) BY MOUTH DAILY 90 tablet 2 5 Active furosemide (LASIX) 20 mg tabletIndications :Edema, lower extremity Take 1 tablet (20 mg total) by mouth daily 90 tablet 3 5 10/29/19 26 Active midodrine (PROAMATINE) 5 mg tabletIndications :Autonomic orthostatic hypotension Take 5 mg for morning and midday dose and take 10 mg for evening dose. 120 tablet 3 5 Active Hospital, Clinic, or Other Facility Administered Medication [...] we should send an updated script to [facility] in 2-3 weeks) -start glycopyrrolate 1mg TID for sialorrhea -if ineffective consider Botox injections Assessment & Plan (03/12/2024 1:31 PM WRITING MANAGER): 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 [...] placement 11/29/2016 Coronary artery disease invo lving [place] coronary artery of [place] heart without angina pectoris 08/14/2016 Overview (09/29/2016): Coronary artery disease involving [place] coronary artery of [place] heart with other form of angina pectoris [...] relatives? Three times a week 06/06/2022 Attends [employer] Services Not on file 06/06 Active Member of Clubs or Organizations Not on f ile 06/06/2022 Attends Club or Organization Meetings Not on etsefani e 06/06/2022 Are you , , di [...] on file Legal Sex Male 12:29 AM WRITING MANAGER Gender Identity Not on file Sexual Orientation Not on file Last Filed Vital Signs Vital Sign Reading Time Taken Comments Blood Pressure 96/52 10/28/2024 8:39 AM CDT Pulse 72 10/28/2024 8:39 AM CDT Temperature 36.8 C (98.2 F) 08/12/2024 12:47 PM CDT Respiratory Rate 18 04/10/2024 2:18 PM WRITING MANAGER Oxygen Saturation 97% 10/28/2024 8:39 AM CDT Inhaled Oxygen Concentration - - Weight 81.2 kg (179 lb) 10/28/2024 8:39 AM CDT Height 165.1 cm (5' 5) 10/28/2024 8:39 AM CDT Body Mass Index 29.79 10/28/2024 8:39 AM CDT Plan of Treatment Not on file Medical Devices Implanted Type Area Roof Bolter Device Identifier Shelf Expiration Date Model / Serial / Lot [employer] Medical Plate Bone Low Profile 6 Hole H Shape Ti 115.102.06 - [id number] Implanted:Qty: 1 on 06/05/2022 by Nicolás Arevalo MD at [facility] Plate N/A: Sternum [employer] 115.102. 06 / / [employer] Medical Plate Bone Low Profile 4 Hole Box Ti 115.103.04 - [id number] Implanted:Qty: 1 on 06/05/2022 by Nicolás Arevalo MD at [facility] Plate N/A: Sternum [employer] 115.103. 04 / / [employer] Medical Plate Bone Low Profile 6 Hole O Concave Ti 115.604.06 - [id number] Implanted:Qty: 1 on 06/05/2022 by Nicolás Arevalo MD at [facility] Plate N/A: Sternum [employer] 115.604. 06 / / [employer] Von-Tim ds Perimount Magna Ease 23mm Bioprosthesis [id number] - [id number] - [id number] Implanted:Qty: 1 on 06/05/2022 by Nicolás Arevalo MD at [facility] Prosthetic Valve N/A: Heart [employer] 07/18/2024 [id number] / [id number] / Z[employer] Medical Screw Bone Slf Drl Full Thread Locking 3.5x14mm Ti 100.035.14 - [id number] Implanted:Qty: 10 on 06/05/2022 by Nicolás Arevalo MD at [facility] Screw N/A: Sternum [employer] 100.035. 14 / / [employer] Medical Screw Bone Slf Drl Full Thread Locking 3.5x16mm Ti 100.035.16 - [id number] Implanted:Qty: 6 on 06/05/2022 by Nicolás Arevalo MD at [facility] Screw N/A: Sternum [employer] 100.035. 16 / / Procedures Procedure Name Priority Date/Time Associated Diagnosis Comments TRANSTHORACIC ECHO (TTE) COMPLETE W DOPPLER/CF W CONTRAST Routine 10/10/2024 2:56 PM CDT Coronary artery disease involving [place] coronary artery of [place] heart without angina pectoris S/P aortic valve replacement with bioprosthetic valve MCT - MOBILE CARDIAC TELEMETRY EVENT MONITOR Routine 09/23/2024 3:33 PM CDT Postoperative atrial fibrillation (HCC) POCT LIPID PANEL Routine 08/02/2023 10:2 9 AM CDT Coronary artery disease involving [place] coronary artery of [place] heart without angina pectoris EGFR Routine 06/16/2022 10:03 AM WRITING MANAGER HEMOGLOBIN A1C Routine 05/30/2022 12:59 PM WRITING MANAGER Preop testing Type 2 diabetes mellitus with [...] PM CDT Narrative 10/10/2024 4:31 PM CDT [facility] Group Cardiology [address] [facility], [address], [place] [address] P:[phone] P:[phone] Echocardiographic Report ADDENDUM Patient Name: ALLI EAGLE [...] Replacement and I25.10 Atherosclerotic heart disease of [place] coronary artery without angina pectoris. MEASUREMENTS: 2D/MM [...] FINDINGS: Interpretation Site: Exam was interpreted at [facility]. Left Ventricle: Normal left ventricular systolic [...] Procedure Note Forrest Brown MD - 10/13/2024 [facility] Medical Group Cardiology [address], [address], [place] [address] P:[phone] P:[phone] Echocardiographic Report ADDENDUM Patient Name: ALLI EAGLE [...] Valve Replacement and I25.10 Atherosclerotic heartdisease of [place] coronary artery without angina pectoris. MEASUREMENTS: 2D/MM [...] FINDINGS: Interpretation Site: Exam was interpreted at [facility]. Left Ventricle: Normal left ventricular systolic [...] ECHO PROCEDURES Edited Result - Final * [facility] Mobile Cardiac Telemetry Event Monitor (09/23/2024 3:33 PM CDT) Anatomical Region Laterality Modality Electrocardiogra phy Narrative 10/26/2024 1:40 PM CDT AMBULATORY [employer] [facility] REPORT Patient Name: Alli Eagle Date of : 1940 Requesting Physician: Fan Date of interpretation: 10/26/24 Type of monitor : 30 day event monitor Date of the study/Enrollment period: Initiated on 09/23/2024 Indication: History of atrial fibrillation Quality of the study: Favorable Interpretation: The basic rhythm is sinus with normal NM interval the QRS duration is 0.12 seconds [...] was used to complete this document, therefore, labor delivery specialist variances may occur. Juan Wilder MD [facility] 10/26/24 Procedure Note Juan Wilder MD - 10/26/2024 AMBULATORY MATERIAL [employer] [facility] REPORT Patient Name: Alli Eagle Date of : 1940 Requesting Physician: Fan Date of interpretation: 10/26/24 Type of monitor : 30 day event monitor Date of the study/Enrollment period: Initiated on 09/23/2024 Indication: History of atrial fibrillation Quality of the study: Favorable Interpretation: The basic rhythm is sinus with normal NM interval the QRSduration is 0.12 seconds QT [...] software was used to complete this document, therefore,labor delivery specialist variances may occur. Jaun Wilder MD [facility] 10/26/24 Forrest Brown MD [facility] PROCE DURES Final Result * POCT lipid panel (08/02/2023 [...] Final Result * eGFR (06/16/2022 10:03 AM WRITING MANAGER) eGFR 67 mL/min/1. 73 m2 [facility]UX [...] reviewed 2021. Blood 06/16/2022 10:0 3 AM WRITING MANAGER 06/16/2022 10:03 AM WRITING MANAGER Nicolás Arevalo MD LAB BLOOD ORDERABLES Final Res ult [facility] [place] [address] [address] [place] [address] * Hemoglobin A1c (05/30/2022 12:59 PM WRITING MANAGER) Hgb A1C 5.5 4.0 - 5.6 % [facility] Estimated Average Glucose 111 mg/dL [facility] Comment: The ADA recommends reporting an estimated Average Glucose (eAG) with all Hemoglobin A1c results using the equation derived from a study of 507 normal and diabetic adults. Minority populations were underrepresented and children were not included. (Diabetes Care 31:2058-1730, 2008). The eAG is not equivalent to a fasting glucose. Blood 05/30/2022 12:5 9 PM WRITING MANAGER 05/30/2022 1:03 PM WRITING MANAGER Nicolás Arevalo MD LAB BLOOD ORDERABLES Final Res ult [place] [address] [place] [address] from Last 3 Months or Most Recently Relevant to Health Maintenance Insurance [facility]IC[facility] MEDICARE SUPPLEMENT INSURANCE MEDICARE [facility] MEDICARE SUPPLEMENT MEDICARE [facility] MEDICARE SUPPLEMENT Advance Directives For more information, please contact: [phone] * Full Code (Latest Code Status on File) Date Activated Date Inactivated Comments 06/05/2022 2:49 PM 06/16/2022 5:28 PM Care Teams Principal Developer Relationship Specialty Start Date End Date Leticia Handley MD [address] [place], [place] [id number] PCP - General Internal Medicine 05/08/23
--- OUTSIDE RECORDS SUMMARY | 2024-12-08 06:57 | XMS_ITS | Clinical Summary ---
Author Organization [facility] [address] Address [address] [place] [address] Care Team Providers Care Risk Control Analyst Name Role Phone Leticia Handley MD Primary Care Provider [phone] Allergies No known active allergies Medications bimatoprost (Lumigan) 0.01 % ophthalmic drops Administer 1 drop into both eyes nightly 2 Active aspirin 81 mg enteric coated tablet Take 1 tablet (81 mg total) by mouth daily 30 tablet 1 3 09/24/19 26 Active levothyroxine (SYNTHROID) 75 mcg tablet Take 1 tablet (75 mcg total) by mouth server programmer before breakfast 30 tablet 1 3 Active [...] we should send an updated script to [facility] in 2-3 weeks) -start glycopyrrolate 1mg TID for sialorrhea -if ineffective consider Botox injections Assessment & Plan (03/12/2024 1:31 PM COMBATANT DIVER OFFICER): 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 [...] placement 11/29/2016 Coronary artery disease invo lving chinik coronary artery of chinik heart without angina pectoris 08/14/2016 Overview (09/29/2016): Coronary artery disease involving chinik coronary artery of chinik heart with other form of angina pectoris [...] Description 10/28/2024 9:00 AM CDT Office Visit [facility] [address] [facility] [address] [place] [id number] Carla Rodrigues NP Autonomic orthostatic hypotension (Primary Dx); Edema, lower extremity; Coronary artery disease involving chinik coronary artery of chinik heart without angina pectoris; S/P aortic valve replacement with bioprosthetic valve; Postoperative atrial fibrillation (HCC) 10/21/2024 Results Follow-Up [facility] [address] [facility] [address] [place] [address] Forrest Brown MD Transthoracic Echo (TTE) Complete W Doppler/CF, MCT Mobile Cardiac Telemetry Event Monitor 10/10/2024 2:00 PM CDT Ancillary Procedure [facility] at [address] [place] [address] Coronary artery disease involving chinik coronary artery of chinik heart without angina pectoris; S/P aortic valve replacement with bioprosthetic valve 09/23/2024 3:00 PM CDT Ancillary Procedure [facility] at [address] [place] [address] Postoperative atrial fibrillation (HCC) 09/23/2024 2:30 PM CDT Office Visit [facility] at [address] [place] [address] Forrest Brown MD Coronary artery disease involving chinik coronary artery of chinik heart without angina pectoris (Primary Dx); Chronic heart failure with preserved ejection fraction (HFpEF) (HCC); Postoperative atrial fibrillation (HCC); S/P aortic valve replacement with bioprosthetic valve; YANET on CPAP; Chronic anticoagulation 09/09/2024 11:15 AM CDT Procedure visit [facility] [address] [place] [address] Isiah Brown MD PhD Sialorrhea (Primary Dx); Parkinson's disease without dyskinesia or fluctuating manifestations (HCC) 09/09/2024 Orders Only [facility] 6th [place] [address] [place] [address] Isiah Brown MD PhD Sialorrhea 09/09/2024 Telephone [facility] [address] [place] [address] 7th [place] [phone] Charlette Arias RN from Last 3 Months [...] Hypertension Hypertension Adiposity Obesity Sleep apnea CPAP MS (myocardial infarction) ([facility]) 2014 CAD (coronary artery disease) Parkinson's disease ([facility]) Skin cancer Back Nonrheumatic aortic (valve) stenosis Type 2 diabetes mellitus H/O CHF (congestive heart failure) ([facility]) Cardiomyopathy Chronic fatigue syndrome Arthritis Benign prostatic hyperplasia [...] on file Legal Sex Male 12:29 AM COMBATANT DIVER OFFICER Gender Identity Not on file Sexual Orientation Not on file Obstetrics History Last Filed Vital Signs Vital Sign Reading Time Taken Comments Blood Pressure 96/52 10/28/2024 8:39 AM CDT Pulse 72 10/28/2024 8:39 AM CDT Temperature 36.8 C (98.2 F) 08/12/2024 12:47 PM CDT Respiratory Rate 18 04/10/2024 2:18 PM COMBATANT DIVER OFFICER Oxygen Saturation 97% 10/28/2024 8:39 AM CDT [...] 09/10/2012, 06/13/2004 Medical Devices Implanted Type Area X Ray Examiner Of Aircraft Device Identifier Shelf Expiration Date Model / Serial / Lot Ziggy Medical Plate Bone Low Profile 6 Hole H Shape Ti 115.102.06 - [id number] Implanted:Qty: 1 on 06/05/2022 by Nicolás Arevalo MD at [facility] Plate N/A: Sternum [employer] 115.102. 06 / / Ziggy Medical Plate Bone Low Profile 4 Hole Box Ti 115.103.04 - [id number] Implanted:Qty: 1 on 06/05/2022 by Nicolás Arevalo MD at [facility] Plate N/A: Sternum [employer] 115.103. 04 / / Ziggy Medical Plate Bone Low Profile 6 Hole O Concave Ti 115.604.06 - [id number] Implanted:Qty: 1 on 06/05/2022 by Nicolás Arevalo MD at [facility] Plate N/A: Sternum [employer] 115.604. 06 / / B[employer]ti [employer] Von-Tim ds Per[place]ount Magna Ease 23mm Bioprosthesis [id number] - [id number] - [id number] Implanted:Qty: 1 on 06/05/2022 by Nicolás Arevalo MD at [facility] Prosthetic Valve N/A: Heart [employer] 07/18/2024 [id number] / [id number] / Ziggy Medical Screw Bone Slf Drl Full Thread Locking 3.5x14mm Ti 100.035.14 - [id number] Implanted:Qty: 10 on 06/05/2022 by Nicolás Arevalo MD at [facility] Screw N/A: Sternum [employer] 100.035. 14 / / Ziggy Medical Screw Bone Slf Drl Full Thread Locking 3.5x16mm Ti 100.035.16 - [id number] Implanted:Qty: 6 on 06/05/2022 by Nicolás Arevalo MD at [facility] Screw N/A: Sternum [employer] 100.035. 16 / / Procedures Procedure Name Priority Date/Time Associated Diagnosis Comments TRANSTHORACIC ECHO (TTE) COMPLETE W DOPPLER/CF W CONTRAST Routine 10/10/2024 2:56 PM CDT Coronary artery disease involving chinik coronary artery of chinik heart without angina pectoris S/P aortic valve replacement with bioprosthetic valve MCT - MOBILE CARDIAC TELEMETRY EVENT MONITOR Routine 09/23/2024 3:33 PM CDT Postoperative atrial fibrillation (HCC) POCT LIPID PANEL Routine 08/02/2023 10:2 9 AM CDT Coronary artery disease involving chinik coronary artery of chinik heart without angina pectoris EGFR Routine 06/16/2022 10:03 AM COMBATANT DIVER OFFICER HEMOGLOBIN A1C Routine 05/30/2022 12:59 PM COMBATANT DIVER OFFICER Preop testing Type 2 diabetes mellitus with [...] PM CDT Narrative 10/10/2024 4:31 PM CDT [facility] Cardiology [address], [address], [place] [address] P:[phone] P:[phone] Echocardiographic Report ADDENDUM Patient Name: ALLI EAGLE [...] Replacement and I25.10 Atherosclerotic heart disease of chinik coronary artery without angina pectoris. MEASUREMENTS: 2D/MM [...] FINDINGS: Interpretation Site: Exam was interpreted at [facility]. Left Ventricle: Normal left ventricular systolic function. [...] Procedure Note Forrest Brown MD - 10/13/2024 [facility] Cardiology [address], [address], [place] [address] P:[phone] P:[phone] Echocardiographic Report ADDENDUM Patient Name: ALLI EAGLE H : 1940 Study Date: 10/10/2024 2:00:09 PM Gender: M Tech: Location: [facility] Ref Provider: FORREST BROWN Height(Cm): 165 BSA: 1.92 Weight(Kg): 80.7 Heart Rate: 58 BP: 118 / 66 Quality: Good Order Provider: FORREST BROWN PROCEDURES: Echocardiographic Report: Transthoracic echocardiogram with complete 2D, M-Mode, color Dopplerexamination and Definity contrast. INDICATIONS: Bioprosthetic Aortic Valve Replacement and I25.10 Atherosclerotic heartdisease of chinik coronary artery without angina pectoris. MEASUREMENTS: 2D/MM [...] FINDINGS: Interpretation Site: Exam was interpreted at [facility]. Left Ventricle: Normal left ventricular systolic function. [...] phy Narrative 10/26/2024 1:40 PM CDT AMBULATORY CHILDREN'S ATTENDANT REPORT Patient Name: Alli Eagle Date of : 1940 Requesting Physician: Fan Date of interpretation: 10/26/24 Type of monitor : 30 day event monitor Date of the study/Enrollment period: Initiated on 09/23/2024 Indication: History of atrial fibrillation Quality of the study: Favorable Interpretation: The basic rhythm is sinus with normal [place] interval the QRS duration is 0.12 seconds [...] was used to complete this document, therefore, joint special operations variances may occur. Juan Wilder MD [facility] 10/26/24 Procedure Note Juan Wilder MD - 10/26/2024 AMBULATORY CHILDREN'S ATTENDANT REPORT Patient Name: Alli Eagle Date of : 1940 Requesting Physician: Fan Date of interpretation: 10/26/24 Type of monitor : 30 day event monitor Date of the study/Enrollment period: Initiated on 09/23/2024 Indication: History of atrial fibrillation Quality of the study: Favorable Interpretation: The basic rhythm is sinus with normal [place] interval the QRSduration is 0.12 seconds QT [...] software was used to complete this document, therefore,joint special operations variances may occur. Juan Wilder MD [facility] 10/26/24 us Forrest Brown MD [facility] Final Result * POCT lipid panel (08/02/2023 [...] Final Result * eGFR (06/16/2022 10:03 AM COMBATANT DIVER OFFICER) eGFR 67 mL/min/1. 73 m2 RYAN LUX [...] reviewed 2021. Blood 06/16/2022 10:0 3 AM COMBATANT DIVER OFFICER 06/16/2022 10:03 AM COMBATANT DIVER OFFICER Nicolás Arevalo MD LAB BLOOD ORDERABLES Final Res ult RYAN [address] [address]intron Department [place] [address] * Hemoglobin A1c (05/30/2022 12:59 PM COMBATANT DIVER OFFICER) Hgb A1C 5.5 4.0 - 5.6 % RYAN LUX Estimated Average Glucose 111 mg/dL RYNA LUX Comment: The ADA recommends reporting an estimated Average Glucose (eAG) with all Hemoglobin A1c results using the equation derived from a study of 507 normal and diabetic adults. Minority populations were underrepresented and children were not included. (Diabetes Care 31:3897-5654, 2008). The eAG is not equivalent to a fasting glucose. Blood 05/30/2022 12:5 9 PM COMBATANT DIVER OFFICER 05/30/2022 1:03 PM COMBATANT DIVER OFFICER Nicolás Arevalo MD LAB BLOOD ORDERABLES [facility] [address] [address] Department [place] [address] from Last 3 Months or Most Recently Relevant to Health Maintenance Insurance MEDICARE [facility] MEDICARE SUPPLEMENT INSURANCE MEDICARE [facility] MEDICARE SUPPLEMENT MEDICARE [facility] MEDICARE SUPPLEMENT Advance Directives For more information, please contact: [phone] * Full Code (Latest Code Status on File) Date Activated Date Inactivated Comments 06/05/2022 2:49 PM 06/16/2022 5:28 PM Care Teams Risk Control Analyst Relationship Specialty Start Date End Date Leticia Handley MD [address] [place] [address] PCP - General Internal Medicine 05/08/23
--- OUTSIDE RECORDS SUMMARY | 2024-12-08 06:57 | XMS_ITS | Clinical Summary ---
Author Organization [facility] Address [address] [place] [address] Care Team Providers Care Forestry Farm Laborer Name Role Phone Leticia Handley MD Primary Care Provider [phone] Allergies No known active allergies Medications clopidogrel [...] opa (SINEMET) 25-250 MG tabletIndicatio ns:Parkinson's disease ([facility]) TAKE 1 TABLET BY MOUTH 4 TIMES DAILY 360 tablet 3 03/24/2022 Active pramipexole (MIRAPEX) 1 MG tabletIndicatio ns:Parkinson's disease ([facility]) Take 3 tablets (3 mg total) by [...] artery disease of n ative artery of prairie island heart with stable angina pectoris 08/14/2016 Overview (05/27/2019): Overview: Coronary artery disease involving [place] coronary artery of prairie island heart with other form of angina pectoris Dyslipidemia associated with type 2 diabetes mellitus ([facility]) 11/15/2015 Overview (05/27/2019): Overview: DM type 2 with diabetic dyslipidemia Hypertensive heart disease w ith congestive heart failure ([facility]) 08/02/2015 Overview (05/27/2019): Overview: Hypertensive heart disease with diastolic heart failure YANET on CPAP 08/02/2015 Overview (05/27/2019): Overview: YANET on CPAP Benign hypertension 04/26/2015 Overview (05/27/2019): Overview: HTN (hypertension), benign Dyslipidemia 04/26/2015 Overview (05/27/2019): Overview: Mixed dyslipidemia Cardiomyopathy ([facility]) 04/26/2015 Overview (05/27/2019): Overview: Cardiomyopathy Myocardial infarction ([facility]) 04/26/20 15 Overview (05/27/2019): Overview: ST elevation [...] CDT Respiratory Rate 18 07/13/2021 2:45 PM CONFIGURATOR Oxygen Saturation 96% 12/16/2021 8:52 AM CDT Inhaled Oxygen Concentration - - Weight 90.7 kg (200 lb) 12/16/2021 8:52 AM CDT Height 166.4 cm (5' 5.5) 12/16/2021 8:52 AM CDT Body Mass Index 32.78 12/16/2021 8:52 AM CDT Plan of Treatment Health Maintenance Due Date Last Done Comments ASCVD LDL 1940 ASCVD Statin 1940 Lipid Panel 1940 Diabetes: Retinopathy Eye [...] age to complete this topic Insurance MEDICARE [facility]ICARE [facility] Care Teams Forestry Farm Laborer Relationship Specialty Start Date End Date Leticia Handley MD [address] [place] [phone] PCP - General INTERNAL MEDICINE 08/09/18
--- OUTSIDE RECORDS SUMMARY | 2024-12-08 06:58 | XMS_ITS | Patient Health Record ---
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, bilateral legs I70.213 and Acquired keratosis [keratoderma] palmaris et plantaris L85.[address] [id number] 12/04/2024 OPAL ROBISON Tinea unguium B35.1 ; Pain in right foot M79.671 ; Pain in left foot M79.672 ; 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, bilateral legs I70.213 and Acquired keratosis [keratoderma] palmaris et plantaris L85.[address] [id number] 01/31/2024 CARLOS TEJEDADANNY Other hammer toe(s) (acquired), right foot M20.41 ; Tinea unguium B35.1 ; Other hammer toe(s) (acquired), left foot M20.42 ; Pain in right toe(s) M79.674 ; Pain in left toe(s) M79.675 ; Pain in right foot M79.671 ; Pain in left foot M79.672 ; 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klamath arteries of extremities, bilateral legs I70.203 and Acquired keratosis [keratoderma] palmaris et plantaris L85.[address] [id number] 04/10/2024 CARLOS POWER Other hammer toe(s) (acquired), right foot M20.41 ; Tinea unguium B35.1 ; Other hammer toe(s) (acquired), left foot M20.42 ; Pain in right toe(s) M79.674 ; Pain in left toe(s) M79.675 ; Pain in right foot M79.671 ; Pain in left foot M79.672 ; 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klamath arteries of extremities, bilateral legs I70.203 and Acquired keratosis [keratoderma] palmaris et plantaris L85.[address] [id number] 05/22/2024 ANASTASIIA SNOOK Tinea unguium B35.1 ; Pain in right foot M79.671 ; Pain in left foot M79.672 ; 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, bilateral legs I70.213 and Acquired keratosis [keratoderma] palmaris et plantaris L85.[address] [id number] 07/24/2024 ANASTASIIA SNOOK Tinea unguium B35.1 ; Pain in right foot M79.671 ; Pain in left foot M79.672 ; 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, bilateral legs I70.213 and Acquired keratosis [keratoderma] palmaris et plantaris L85.1 Assessments Encounter Date Diagnosis (ICD Code) Assessment Notes Treatment Notes Treatment Clinical Notes Section Notes 01/31/2024 Tinea unguium (ICD-10 - B35.1) Aseptic [...] in right foot (ICD-10 - M79.671) 12/04/2024 Tinea unguium (ICD-10 - B35.1) Nails 1-5 Bilateral were debrided extensively with nail nippers and emery board, reducing length and girth to pink healthy tissue with any subungual debris and necrotic tissue removed 12/04/2024 Pain in right foot (ICD-10 - M79.671) 12/04/2024 Pain in left foot (ICD-10 - M79.672) 09/25/2024 Pain in left foot (ICD-10 - M79.672) 07/24/2024 Pain in left foot (ICD-10 - M79.672) 05/22/2024 Pain in left foot (ICD-10 - M79.672) 04/10/2024 Other hammer toe(s) (acquired), left foot (ICD-10 - M20.42) 01/31/2024 Other hammer toe(s) (acquired), left foot (ICD-10 - M20.42) 01/31/2024 Pain in right toe(s) (ICD-10 - M79.674) 07/24/2024 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, bilateral legs (ICD-10 - I70.213) 05/22/2024 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, bilateral legs (ICD-10 - I70.213) 04/10/2024 Pain in right toe(s) (ICD-10 - M79.674) 09/25/2024 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, bilateral legs (ICD-10 - I70.213) 12/04/2024 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, bilateral [...] cut and pared utilizing a #15 blade 09/25/2024 Acquired keratosis [keratoderma] palmaris et plantaris [...] (ICD-10 - M79.672) 01/31/2024 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klamath arteries of extremities, bilateral legs (ICD-10 - I70.203) Patient educated on risks and aggravating factors of PVD, including conservative treatment options such as a diet and exercise regimen to aid in slowing progression of vascular disease 04/10/2024 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klamath arteries of extremities, bilateral legs (ICD-10 - [...] Treatment Next Appt Details Provider Name:OPAL GUZMAN, 02/05/2025 02:00:00 PM, [address] [place] [address], [phone], Insurance Providers Payer Name Payer Address Payer Phone Subscriber Number Group Number Insured Name Patient Relationship to Insured Coverage Start Date Coverage End Date Medicare Part B [place] [address] [place] [phone] [id number] KATIE CRUZ Self - patient is the insured [facility] [employer] [facility] ([facility]) ATTN CLAIMS [address] [place] [address] [id number] KATIE CRUZ Self - patient is the insured 4 Medical (General) History Surgical History Surgery Date(Month/Year) Total ankle replacement 2014
--- OUTSIDE RECORDS SUMMARY | 2024-12-08 06:58 | XMS_ITS | Encounter Summary ---
Author Organization [facility] Address [address] [place] [address] Care Team Providers Care Account Executive Key Accounts Name Role Phone Leticia Handley MD Primary Care Provider [phone] Karrie Mcgregor DO Primary Care Provide r Leticia Handley MD Primary Care Provider [phone] Encounter Details Date Type Department Care Team (Late st Contact Info) Description 08/15/2016 Orders Only [facility] ProviderNila MD [address] [place] [address] Social History Tobacco Use Types Packs/Day Years Used Date Smoking Tobacco: Never Alcohol Use Standard Drinks/Week Comments Yes 0 (1 standard drink = 0.6 oz pur e alcohol) Sex and Gender Information Value Date Recorded Sex Assigned at Not on file Legal Sex Male 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
--- OUTSIDE RECORDS SUMMARY | 2024-12-08 06:58 | XMS_ITS | Clinical Summary ---
Author Organization [facility] Address [address] [place] [address] Care Team Providers Care Seafood Service Team Member Name Role Phone Leticia Handley MD Primary Care Provider [phone] Nilesh Mojica DO Unavailable [phone] Enoc Sheridan PA-C Unavailable [phone] Source Comments [facility],non-owned Affiliates and Associated Physician Practices is amultiple site organization consisting of ambulatory clinics and hospital sitesin [place], [place], [place] and [place]. This disclosure is being madepursuant to the Care Everywhere program and may not contain all information available regarding this patient. Last updated 18.[facility] Rise Art Allergies No known active allergies Medications * [...] st Contact Info) Description 03/09/2025 10:40 AM COORDINATE MEASURING MACHINE TECHNICIAN Office Visit [facility] Orthopedics [address] [facility], [address] [address] Nilesh Mojica DO [facility] [address] [address] Health Maintenance Due Date Last [...] this topic Medical Devices Implanted Type Area Computer Scientist Device Identifier Shelf Expiration Date Model / Serial / Lot Stem Tlr Inbone Ii 1 Lg 10mm Ankl Implanted:Qty : 1 on 03/08/2017 by Nilesh Mojica DO at [facility] Left: Ankle [employer] 12/07/2023 [id number] / / [id number] 4 Long Tibial Tray Implanted:Qty : 1 on 03/08/2017 by Nilesh Mojica DO at [facility] Left: Ankle [employer] 01/09/2025 [id number] / / [id number] Cmpnt Tlr Inbone 3 Dome Ankl Sulcus Implanted:Qty : 1 on 03/08/2017 by Nilesh Mojica DO at [facility] Left: Ankle [employer] 12/09/2024 [id number] / / [id number] Infinity Poly Insert Implanted:Qty : 1 on 03/08/2017 by Nilesh Mojica DO at [facility] Left: Ankle [employer] 10/22/2024 [id number] / / [id number] Screw Qckfix Kyler Canc 4.0 X 46 Implanted:Qty : 1 on 03/08/2017 by Nilesh Mojica DO at [facility] Left: Ankle Arthrex Inc [id number] / / Plate 61mm 3 Hl Hk [...] Graft Bone Othblst Ii Dbm Canc 1cc [facility] - [id number] Implanted:Qty : 1 on 03/08/2017 by Nilesh Mojica DO at [facility] Left: Ankle Integra [employer]iences 01/01/2019 / [id number] / [id number] Explanted Type Area Computer Scientist Device Identifier Shelf Expiration Date Model / [...] / Insurance MEDICARE MEDICARE SUPPLEMENT [facility] Advance Directives Documents on File Type Date Recorded Patient Orthopedic Radiologic Technologist Expl anation Adv Directive/Living Will/POA 03/12/2017 8:08 PM * Full Code (Latest Code Status on File) Date Activated Date Inactivated Comments 03/08/2017 12:28 PM 03/09/2017 4:41 PM Care Teams Seafood Service Team Member Relationship Specialty Start Date End Date Leticia Handley MD PCP - General Internal Medicine 12/06/16 Nilesh Mojica DO Orthopedic Surgery 12/06/16 Enoc Sheridan, PAMonieC [address] [address] Physician Test Department Helper Physician Test Department Helper 03/13/17
--- OUTSIDE RECORDS SUMMARY | 2024-12-08 06:58 | XMS_ITS | Encounter Summary ---
Author Organization [facility] Healthcare Address [address] [place] [address] Care Team Providers Care Deputy City Clerk Name Role Phone Leticia Handley MD Primary Care Provider [phone] Encounter Details Date Type Department Care Team (Latest Contact Info) Description 10/21/2024 Results Follow-Up [facility] Cardiology [address] [facility] [address] [place] [address] [place] [address] [place] [address] [address] [facility] [place] [address] [place], [place] [id number] Transthoracic Echo (TTE) Complete W Doppler/CF, MCT [...] relatives? 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
--- OUTSIDE RECORDS SUMMARY | 2024-12-08 06:58 | XMS_ITS | Encounter Summary ---
Author Organization [facility] Healthcare Address [address] [place] [address] Care Team Providers Care Banking Management Consulting Manager Name Role Phone Leticia Handley MD Primary Care Provider + [phone] Karrie Mcgregor DO Primary Care Provide r Leticia Handley MD Primary Care Provider + [phone] Encounter Details Date Type Department Care Team (Late st Contact Info) Description 04/22/2019 Telephone [facility] Radiology [address] [place] [address] Steff Shah, RT Social History Tobacco Use Types Packs/Day Years Used Date Smoking Tobacco: Never Smokeless Tobacco: Never Alcohol Use Standard Drinks/Week Comments Yes 0 (1 standard drink = 0.6 oz pur e alcohol) Sex and Gender Information Value Date Recorded Sex Assigned at Not on file Legal Sex Male 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
--- OUTSIDE RECORDS SUMMARY | 2024-12-08 06:58 | XMS_ITS ---
Author Organization [facility] Address [address] [place], [place] [address] Care Team Providers Care Applied Psychology Teacher Name Role Phone ANASTASIIA ORNELAS Unavailable [phone] Estela Handley Unavailable Unavailable OPAL ROBISON Unavailable [phone] REASON FOR VISIT *General care Medications Medication SIG (Take, Route, Frequency, Duration) Notes Start Date End Date Status Aspirin 81 MG 1 tablet Orally Once a day Active Encounters Encounter Location Date Provider Diagnosis [address] [id number] 12/04/2024 OPAL ROBISON Tinea unguium B35.1 ; Pain in right foot M79.671 ; Pain in left foot M79.672 ; Atherosclerosis of [place] arteries of extremities with intermittent claudication, bilateral [...] foot (ICD-10 - M79.672) 12/04/2024 Atherosclerosis of [place] arteries of extremities with intermittent claudication, bilateral [...] debris and necrotic tissue removed Atherosclerosis of [place] ar teries of extremities with intermittent claudication, [...] develop. Provider Name:OPAL GUZMAN, 02/05/2025 02:00:00 PM, [address] [place] [address], [id number], Progress Notes * KATIE CRUZDOB:1940 (84 yo M)Acc No.[id number]:12/04/2024 Patient: KATIE HOGAN Provider: Royer ROBISON :1940 A ge:84 Y S ex:Male Date:12/04/2024 Address: [facility] Subjective: * Chief Complaints: * 1 . *General care. * ROS: G eneral / Constitutional: Patient denies w eakness. R espiratory: Patient denies c hronic cough, shortness of breath, sputum production. C ardiovascular: Patient denies c hest pain, history of PR, irregular heartbeat. M usculoskeletal: Patient complains of a [facility] pain, hammertoes. ? P eripheral [...] - M79.672 4 . 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 Acquired keratosis [keratoderma] palmaris et plantaris - L85.1 Plan: * Treatment: 2. A therosclerosis of [place] arteries of extremities with intermittent claudication, bilateral [...] Electronic signature of BRIGHT ROBISON DPM on 12/08/2024 at 06:57 AM CDT Sign off status: Pending * Provider: Royer ROBISON Date: 0 12/04/2024 Generated for Joseph Fisher on: 0 12/08/2024 06:57 AM CDT History and Physical Notes * [...]
--- OUTSIDE RECORDS SUMMARY | 2024-12-08 06:58 | XMS_ITS | Encounter Summary ---
Author Organization [facility] Address [address] [place] [address] Care Team Providers Care Greens Or Grounds Superintendent Name Role Phone Leticia Handley MD Primary Care Provider Nilesh Mojica DO Unavailable [phone] Enoc Sheridan PA-C Unavailable [phone] Encounter Details Date Type Department Care Team (Late st Contact Info) Description 12/06/2016 [facility] Outpatient Visit [facility] Orthopedics - Radiology [address] [place] [address] 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 Office Visit [facility] Health Orthopedics [address], [address] [address] Nilesh Mojica [address] [address] documented as of this encounter Visit Diagnoses Not on filedocumented in this encounter Care Teams Greens Or Grounds Superintendent Relationship Specialty Start Date End Date Leticia Handley MD PCP - General Internal Medicine 12/06/16 Nilesh Mojica DO Orthopedic Surgery 12/06/16 Enoc Sheridan PA-C [address] [place] [address] Physician High School Librarian Physician High School Librarian 03/13/17 documented as of this encounter
--- OUTSIDE RECORDS SUMMARY | 2024-12-08 06:58 | XMS_ITS ---
Author Organization [facility] Address [address] [place], [place] [address] Care Team Providers Care Yarn Packer Name Role Phone ANASTASIIA ORNELAS Unavailable [phone] Estela Handley Unavailable Unavailable OPAL ROBISON Unavailable [phone] REASON FOR VISIT *General care Medications Medication SIG (Take, Route, Frequency, Duration) Notes Start Date End Date Status Aspirin 81 MG 1 tablet Orally Once a day Active Vital Signs Height 66.00 in 09/25/2024 Weight 200 lbs 09/25/2024 BMI 32.28 kg/m2 09/25/2024 Height-cm 167.64 cm 09/25/2024 Weight-kg 90.72 kg 09/25/2024 Encounters Encounter Location Date Provider Diagnosis [address] [id number] 09/25/2024 OPAL ROBISON Tinea unguium B35.1 ; Pain in right foot M79.671 ; Pain in left foot M79.672 ; Atherosclerosis of [place] arteries of extremities with intermittent claudication, bilateral [...] foot (ICD-10 - M79.672) 09/25/2024 Atherosclerosis of [place]omede arteries of extremities with intermittent claudication, bilateral [...] develop. Provider Name:OPAL GUZMAN, 02/05/2025 02:00:00 PM, [address] [place] [address], [id number], Progress Notes * KATIE CRUZDOB:1940 (84 yo M)Acc No.[id number]:09/25/2024 Patient: KATIE HOGAN Provider: Royer ROBISON :1940 A ge:83 Y S ex:Male Date:09/25/2024 Address: [place] [address] Subjective: * Chief Complaints: * 1 . [...] Patient denies c hest pain, history of CT, irregular heartbeat. M usculoskeletal: Patient complains of [...] - M79.672 4 . A therosclerosis of [place] arteries of extremities with intermittent claudication, bilateral [...] LESIONS, 2 TO 4, Modifiers: Q8 , 29420 DEBRIDE NAIL, 6 OR MORE, Modifiers: 59 , Q8 * Follow Up: 1 0 - 12 weeks (Reason: At-Risk Foot care, sooner if problems develop.) * Billing Information: * Visit Code: * Procedure Codes: 14491 TRIM SKIN LESIONS, 2 TO 4. Modifiers: Q8 28998 DEBRIDE NAIL, 6 OR MORE. Modifiers: 59, Q8 * Electronic signature of BRIGHT ROBISON DPM on 12/08/2024 at 06:57 AM CDT Sign off status: Pending * Provider: Royer ROBISON Date: 0 09/25/2024 Generated for Joseph Gordon/Enzo on: 0 12/08/2024 06:57 AM CDT History [...]
[2024-12-08 07:34] LABS: Hematocrit 40.2 % (37.0-46.0); Hemoglobin 12.9 g/dL (12.4-15.3); Immature Granulocyte Percent A 0.4 % (0.0-0.0); Lymphocytes Absolute Auto 1.39 K/mm3 (1.10-4.50); Mean Corpuscular HGB Conc 32.1 g/dL (32-36); Mean Corpuscular Hemoglobin 30.2 pg (27.0-31.0); Mean Corpuscular Volume 94.1 fL (78.0-102.0); Nucleated Red Blood Cells Absolute Auto 0.00 K/mm3 (0.00-0.00); Nucleated Red Blood Cells Perc 0.0 % (0-0.0); Platelet Count Result 170 K/mm3 (150-420); Red Blood Count 4.27 M/mm3 (4.70-6.10); White Blood Count 5.6 K/mm3 (4.8-10.8)
[2024-12-08 07:53] LABS: Iron 85 ug/dL (49-181)
[2024-12-08 10:58] LABS: Ferritin 170.00 ng/mL (11.1-264)
== END 2024-12-08 06:53 | disposition home or self-care (01) ==
LOC: CHSLAB 06:55
PROVIDERS: PCP Internal Medicine; Visit Provider Internal Medicine
DX: D50.9 Iron deficiency anemia, unspecified (principal)
CPT/HCPCS: 36415; 82728; 83540; 85025

== ENCOUNTER 2024-12-30 06:51 | Outpatient (CLI) | payer MEDICARE, SELFPAY ==
--- OUTSIDE RECORDS SUMMARY | 2024-09-25 10:10 | XMS_ITS ---
Author Organization [facility] Address [address] [place], [place] [address] Care Team Providers Care Manifest/Order Organizer Print Orders Name Role Phone ANASTASIIA ORNELAS Unavailable [phone] Estela Handley Unavailable Unavailable OPAL ROBISON Unavailable [phone] REASON FOR VISIT *General care Medications Medication SIG (Take, Route, Frequency, Duration) Notes Start Date End Date Status Aspirin 81 MG 1 tablet Orally Once a day Active Vital Signs Height 66.00 in 09/25/2024 Weight 200 lbs 09/25/2024 BMI 32.28 kg/m2 09/25/2024 Height-cm 167.64 cm 09/25/2024 Weight-kg 90.72 kg 09/25/2024 Encounters Encounter Location Date Provider Diagnosis [address] [id number] 09/25/2024 OPAL ROBISON Tinea unguium B35.1 ; Pain in right foot M79.671 ; Pain in left foot M79.672 ; Atherosclerosis of elem arteries of extremities with intermittent claudication, bilateral legs I70.213 and Acquired keratosis [keratoderma] palmaris et plantaris L85.1 Assessments Encounter Date Diagnosis (ICD Code) Assessment Notes Treatment Notes Treatment Clinical Notes Section Notes 09/25/2024 Tinea unguium (ICD-10 - B35.1) Nails 1-5 Bilateral were debrided extensively with nail nippers and emery board, reducing length and girth to pink healthy tissue with any subungual debris and necrotic tissue removed 09/25/2024 Pain in right foot (ICD-10 - M79.671) 09/25/2024 Pain in left foot (ICD-10 - M79.672) 09/25/2024 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 Provider Name:OPAL GUZMAN, 02/05/2025 02:00:00 PM, [address] [place] [address], [id number], Progress Notes * KATIE CRUZDOB:1940 (84 yo M)Acc No.[id number]:09/25/2024 Patient: KATIE HOGAN Provider: Roeyr ROBISON :1940 A ge:83 Y S ex:Male Date:09/25/2024 Address: [address] [address] Subjective: * Chief Complaints: * 1 . *General care. * HPI: H PI: General care P jag presents to the office for at risk foot care. Patient states that their nails are thickened, elongated and painful. Patient states that it is aggravated by shoe gear. Onset is gradual. Patient denies being diabetic., Patient denies taking prescription blood thinners but does take a daily aspirin., Date last seen by Dr. Handley was 09/2024., Initials [facility]. * ROS: G eneral / Constitutional: Patient denies w eakness. R espiratory: Patient denies c hronic cough, shortness of breath, sputum production. C ardiovascular: Patient denies c hest pain, history of [place], irregular heartbeat. M usculoskeletal: Patient complains of a rch pain, hammertoes. ? P eripheral Vascular: Patient denies b lanching of skin, cold extremities, decreased sensation in extremities. S kin: Patient complains of f ungal nails, nail changes. ? N eurologic: Patient denies d izziness, gait abnormality, headache. * Medical History: * Surgical History: T otal ankle replacement 2014. * Social History: M igrated Social History: M igrated Social History: History of tobacco use : , Smoking Status : Never used tobacco. * Medications: T tomg Aspirin 81 MG Tablet Chewable 1 tablet Orally Once a day , Medication List reviewed and reconciled with the patient Objective: * Vitals: W t: 200 lbs, Wt-k.72 kg, Ht: 66.00 in, Ht-cm: 167.64 cm, BMI: 32.28 Index, Body Surface Area: 2.05. * Examination: P hysical Examination: General appearance: [...] refill: g reater than 3 seconds. Edema: B ilateral +2 pitting edema bilateral. ? N eurologic: Gross sensation G rossly intact to light touch. There is negative Tinel's sign. M usculoskeletal: Muscle Strength M uscle strength is 4/5 in regards to dorsiflexion, plantarflexion, inversion, and eversion in bilateral lower extremities. There is no inversion or eversion at the left ankle post TAR 10+ years ago. Pes planus bilat L>R with too many toes sign present.. Foot Structure T he foot structure is noted to be, bilaterally, The foot structure is noted to be planus bilaterally. There is calcaneus valgus noted and o o many toes sign bilateral left > right.. Assessment: * Assessment: 1. T inea unguium - B35.1 (Primary) 2 . P ain in right foot - M79.671 ? 3 . P ain in left foot - M79.672 4 . A therosclerosis of elem arteries of extremities with intermittent claudication, bilateral [...] LESIONS, 2 TO 4, Modifiers: Q8 , 20146 DEBRIDE NAIL, 6 OR MORE, Modifiers: 59 , Q8 * Follow Up: 1 0 - 12 weeks (Reason: At-Risk Foot care, sooner if problems develop.) * Billing Information: * Visit Code: * Procedure Codes: 32069 TRIM SKIN LESIONS, 2 TO 4. Modifiers: Q8 80089 DEBRIDE NAIL, 6 OR MORE. Modifiers: 59, Q8 * Electronic signature of RBIGHT ROBISON DPM on 12/30/2024 at 06:55 AM CDT Sign off status: Pending * Provider: Royer ROBISON Date: 0 09/25/2024 Generated for Joseph Gordon/Enzo on: 0 12/30/2024 06:55 AM CDT History and Physical Notes * HPI (History of Present Illness) Category Sub-Category Detail Notes Category Not es HPI General care Patient presents to the office for at risk foot care. Patient states that their nails are thickened, elongated and painful. Patient states that it is aggravated by shoe gear. Onset is gradual. Patient denies being diabetic., Patient denies taking prescription blood thinners but does take a daily aspirin., Date last seen by Dr. Handley was 09/2024., Initials [facility] Examination Category Sub-Category Detail Notes [...] Vascular Dorsalis pedis pulse: 1/4 bilateral Edema: Bilateral +2 pitting edema bilateral Capillary refill: greater than 3 secon ds Posterior tibial pulse: 0/4 bilateral Physical Examination General appearance: Alert, pleasant, well-nourished and in no acute distress Musculoskeletal Muscle Strength Muscle strength is 4/5 in regards to dorsiflexion, plantarflexion, inversion, and eversion in bilateral lower extremities. There is no inversion or eversion at the left ankle post TAR 10+ years ago. Pes planus bilat L>R with too many toes sign present. Foot Structure The foot structure i s noted to be, bilaterally, The foot structure is noted to be planus bilaterally. There is calcaneus valgus noted and oo many toes sign bilateral left > right.
--- OUTSIDE RECORDS SUMMARY | 2024-12-04 09:30 | XMS_ITS ---
Author Organization [facility] Address [address] [place], [place] [id number] Care Team Providers Care Clinical Team Manager Name Role Phone ANASTASIIA ORNELAS Unavailable [phone] Estela Handley Unavailable Unavailable OPAL ROBISON Unavailable [phone] REASON FOR VISIT *General care Medications Medication SIG (Take, Route, Frequency, Duration) Notes Start Date End Date Status Aspirin 81 MG 1 tablet Orally Once a day Active Encounters Encounter Location Date Provider Diagnosis [address] [id number] 12/04/2024 OPAL ROBISON Tinea unguium B35.1 ; Pain in right foot M79.671 ; Pain in left foot M79.672 ; Atherosclerosis of [place] arteries of extremities with intermittent claudication, bilateral legs I70.213 and Acquired keratosis [keratoderma] palmaris et plantaris L85.1 Assessments Encounter Date Diagnosis (ICD Code) Assessment Notes Treatment Notes Treatment Clinical Notes Section Notes 12/04/2024 Tinea unguium (ICD-10 - B35.1) Nails 1-5 Bilateral were debrided extensively with nail nippers and emery board, reducing length and girth to pink healthy tissue with any subungual debris and necrotic tissue removed 12/04/2024 Pain in right foot (ICD-10 - M79.671) 12/04/2024 Pain in left foot (ICD-10 - M79.672) 12/04/2024 Atherosclerosis of [place] arteries of extremities with intermittent claudication, bilateral legs (ICD-10 - I70.213) Patient educated on risks and aggravating factors of PVD, including conservative treatment options such as a diet and exercise regimen to aid in slowing progression of vascular disease. Check and protect LE bilateral daily. Call if any changes or concerns. 12/04/2024 Acquired keratosis [keratoderma] palmaris et plantaris (ICD-10 [...] any subungual debris and necrotic tissue removed Atherosclerosis of [place] ar teries of extremities with intermittent claudication, bilateral legs Patient educated on risks and aggravatin g factors of PVD, including conservative treatment options such as a diet and exercise regimen to aid in slowing progression of vascular disease. Check and protect LE bilateral daily. Call if any changes or concerns. Acquired keratosis [keratode rma] palmaris et plantaris A total of 2 corns or calluses, as described in the note above, were cut and pared utilizing a #15 blade Next Appt Details Follow Up: 10 - 12 weeks, Re ason: At-Risk Foot care, sooner if problems develop. Provider Name:OPAL GUZMAN, 02/05/2025 02:00:00 PM, [address] [place] [address], [id number], Progress Notes * KATIE CRUZDOB:1940 (84 yo M)Acc No.[id number]:12/04/2024 Patient: KATIE HOGAN Provider: Royer ROBISON :1940 A ge:84 Y S ex:Male Date:12/04/2024 Address: [facility] Subjective: * Chief Complaints: * 1 . *General care. * ROS: G eneral / Constitutional: Patient denies w eakness. R espiratory: Patient denies c hronic cough, shortness of breath, sputum production. C ardiovascular: Patient denies c hest pain, history of [place], irregular heartbeat. M usculoskeletal: Patient complains of a [facility] pain, hammertoes. ? P eripheral Vascular: Patient denies b lanching of skin, cold extremities, decreased sensation in extremities. S kin: Patient complains of f ungal nails, nail changes. ? N eurologic: Patient denies d izziness, gait abnormality, headache. * Medical History: * Medications: T aking Aspirin 81 MG Tablet Chewable 1 tablet Orally Once a day Objective: * Vitals: * Examination: P hysical [...] - M79.672 4 . A therosclerosis of [place] arteries of extremities with intermittent claudication, bilateral legs - I70.213 5 . Acquired keratosis [keratoderma] palmaris et plantaris - L85.1 Plan: * Treatment: 2. A therosclerosis of [place] arteries of extremities with intermittent claudication, bilateral legs Notes: Patient educated on risks and aggravating factors of PVD, including conservative treatment options such as a diet and exercise regimen to aid in slowing progression of vascular disease. Check and protect LE bilateral daily. Call if any changes or concerns. 3. A cquired keratosis [keratoderma] palmaris et plantaris Notes: A total of 2 corns or calluses, as described in the note above, were cut and pared utilizing a #15 blade * Procedure Codes: 1 1056 TRIM SKIN LESIONS, 2 TO 4, Modifiers: Q8 , 58073 DEBRIDE NAIL, 6 OR MORE, Modifiers: 59 , Q8 * Follow Up: 1 0 - 12 weeks (Reason: At-Risk Foot care, sooner if problems develop.) * Billing Information: * Visit Code: * Procedure Codes: 04963 TRIM SKIN LESIONS, 2 TO 4. Modifiers: Q8 14180 DEBRIDE NAIL, 6 OR MORE. Modifiers: 59, Q8 * Electronic signature of BRIGHT ROBISON DPM on 12/30/2024 at 06:55 AM CDT Sign off status: Pending * Provider: Royer ROBISON Date: 0 12/04/2024 Generated for Joseph Fisher on: 0 12/30/2024 06:55 AM CDT History and Physical Notes * Examination Category Sub-Category Detail Notes Category Not [...]
--- OUTSIDE RECORDS SUMMARY | 2024-12-30 06:56 | XMS_ITS | Encounter Summary ---
Author Organization [facility] Address [address] [facility] [address] [place] [address] Care Team Providers Care Technical Training Specialist Name Role Phone Leticia Handley MD Primary Care Provider [phone] Karrie Mcgregor DO Primary Care Provide r Leticia Handley MD Primary Care Provider + [phone] Encounter Details Date Type Department Care Team (Late st Contact Info) Description 08/15/2016 Orders Only [facility] ProviderNila MD [address] [place] [address] Social History Tobacco Use Types Packs/Day Years Used Date Smoking Tobacco: Never Alcohol Use Standard Drinks/Week Comments Yes 0 (1 standard drink = 0.6 oz pur e alcohol) Sex and Gender Information Value Date Recorded Sex Assigned at Not on file 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
--- OUTSIDE RECORDS SUMMARY | 2024-12-30 06:56 | XMS_ITS | Patient Health Record ---
Author Organization [facility] Address [address] [place], [place] [address] Care Team Providers Care Loader Operator Name Role Phone ANASTASIIA ORNELAS Unavailable [phone] Estela Handley Unavailable Unavailable CARLOS STEVE Unavailable [phone] OPAL ROBISON Unavailable [phone] Allergies No Known Allergies Reason For Referral [...] 09/25/2024 Encounters Encounter Location Date Provider Diagnosis [address] [id number] 09/25/2024 OPAL ROBISON Tinea unguium B35.1 ; Pain in right foot M79.671 ; Pain in left foot M79.672 ; Atherosclerosis of [place] arteries of extremities with intermittent claudication, bilateral legs I70.213 and Acquired keratosis [keratoderma] palmaris et plantaris L85.[address] [id number] 12/04/2024 OPAL ROBISON Tinea unguium B35.1 ; Pain in right foot M79.671 ; Pain in left foot M79.672 ; Atherosclerosis of [place] arteries of extremities with intermittent claudication, bilateral legs I70.213 and Acquired keratosis [keratoderma] palmaris et plantaris L85.[address] [id number] 01/31/2024 CARLOS TEJEDADANNY Other hammer toe(s) (acquired), right foot M20.41 ; Tinea unguium B35.1 ; Other hammer toe(s) (acquired), left foot M20.42 ; Pain in right toe(s) M79.674 ; Pain in left toe(s) M79.675 ; Pain in right foot M79.671 ; Pain in left foot M79.672 ; 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[place] arteries of extremities, bilateral legs I70.203 and Acquired keratosis [keratoderma] palmaris et plantaris L85.[address] [id number] 04/10/2024 CARLOS POWER Other hammer toe(s) (acquired), right foot M20.41 ; Tinea unguium B35.1 ; Other hammer toe(s) (acquired), left foot M20.42 ; Pain in right toe(s) M79.674 ; Pain in left toe(s) M79.675 ; Pain in right foot M79.671 ; Pain in left foot M79.672 ; 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[place] arteries of extremities, bilateral legs I70.203 and Acquired keratosis [keratoderma] palmaris et plantaris L85.[address] [id number] 05/22/2024 ANASTASIIA SNOOK Tinea unguium B35.1 ; Pain in right foot M79.671 ; Pain in left foot M79.672 ; Atherosclerosis of [place] arteries of extremities with intermittent claudication, bilateral legs I70.213 and Acquired keratosis [keratoderma] palmaris et plantaris L85.[address] [id number] 07/24/2024 ANASTASIIA SNOOK Tinea unguium B35.1 ; Pain in right foot M79.671 ; Pain in left foot M79.672 ; Atherosclerosis of [place] arteries of extremities with intermittent claudication, bilateral [...] toe(s) (ICD-10 - M79.674) 07/24/2024 Atherosclerosis of [place] arteries of extremities with intermittent claudication, bilateral legs (ICD-10 - I70.213) 05/22/2024 Atherosclerosis of [place] arteries of extremities with intermittent claudication, bilateral legs (ICD-10 - I70.213) 04/10/2024 Pain in right toe(s) (ICD-10 - M79.674) 09/25/2024 Atherosclerosis of [place] arteries of extremities with intermittent claudication, bilateral legs (ICD-10 - I70.213) 12/04/2024 Atherosclerosis of [place] arteries of extremities with intermittent claudication, bilateral [...] (ICD-10 - M79.672) 01/31/2024 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[place]ween[place] arteries of extremities, bilateral legs (ICD-10 - I70.203) Patient educated on risks and aggravating factors of PVD, including conservative treatment options such as a diet and exercise regimen to aid in slowing progression of vascular disease 04/10/2024 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[place]ween[place] arteries of extremities, bilateral legs (ICD-10 - [...] Details Provider Name:OPAL GUZMAN, 02/05/2025 02:00:00 PM, [address] [place] [address], [id number], Insurance Providers Payer Name Payer Address Payer Phone Subscriber Number Group Number Insured Name Patient Relationship to Insured Coverage Start Date Coverage End Date Medicare Part B [place] [address] [place] [phone] [id number] KATIE CRUZ Self - patient is the insured [facility] ([facility]) ATTN CLAIMS [address] [place] [address] [id number] KATIE CRUZ Self - patient is the insured 4 Medical (General) History Surgical History Surgery Date(Month/Year) Total ankle replacement 2014
--- OUTSIDE RECORDS SUMMARY | 2024-12-30 06:56 | XMS_ITS | Encounter Summary ---
Author Organization [facility] Healthcare Address [address] [place] [address] Care Team Providers Care Health Insurance Assessor Name Role Phone Leticia Handley MD Primary Care Provider + [phone] Karrie Mcgregor DO Primary Care Provide r Leticia Handley MD Primary Care Provider + [phone] Encounter Details Date Type Department Care Team (Late st Contact Info) Description 04/22/2019 Telephone [facility] Radiology [address] [place] [address] Steff Shah, RT Social History Tobacco Use Types Packs/Day Years Used Date Smoking Tobacco: Never Smokeless Tobacco: Never Alcohol Use Standard Drinks/Week Comments Yes 0 (1 standard drink = 0.6 oz pur e alcohol) Sex and Gender Information Value Date Recorded Sex Assigned at Not on file 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
--- OUTSIDE RECORDS SUMMARY | 2024-12-30 06:56 | XMS_ITS | Clinical Summary ---
Author Organization [facility] Address [address] [place] [address] Care Team Providers Care Derrick Helper Name Role Phone Leticia Handley MD Primary Care Provider [phone] Nilesh Mojica DO Unavailable [phone] Enoc Sheridan PA-C Unavailable [phone] Source Comments [facility],non-owned Affiliates and Associated Physician Practices is amultiple site organization consisting of ambulatory clinics and hospital sitesin [place], [place], [place] and [place]. This disclosure is being madepursuant to the Care Everywhere program and may not contain all information available regarding this patient. 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 HAND Office Visit [facility] Health Orthopedics [address] [facility], [address] [address] Nilesh Mojica DO [facility] Medical [address] [address] Health Maintenance Due Date Last [...] this topic Medical Devices Implanted Type Area Hogshead Salvage Device Identifier Shelf Expiration Date Model / Serial / Lot Stem Tlr Inbone Ii 1 Lg 10mm Ankl Implanted:Qty : 1 on 03/08/2017 by Nilesh Mojica DO at [facility] Left: Ankle [employer] 12/07/2023 [id number] / / [id number] Long Tibial Tray Implanted:Qty : 1 on 03/08/2017 by Nilesh Mojica DO at [facility] Left: Ankle [employer] 01/09/2025 [id number] / / [id number] Cmpnt Tlr Inbone 3 Dome Ankl Sulcus Implanted:Qty : 1 on 03/08/2017 by Nilesh Mojica DO at [facility] Left: Ankle [employer] 12/09/2024 [id number] / / [id number] Infinity Poly Insert Implanted:Qty : 1 on 03/08/2017 by Nilesh Mojica DO at [facility] Left: Ankle [employer] 10/22/2024 [id number] / / [id number] Screw Qckfix Kyler Canc 4.0 X 46 Implanted:Qty : 1 on 03/08/2017 by Nilesh Mojica DO at [facility] Left: Ankle [employer] [id number] / / Plate 61mm 3 Hl Hk Lck Ss Ft/Ankl Mdl Implanted:Qty : 1 on 03/08/2017 by Nilesh Mojica DO at [facility] Left: Ankle [employer] [id number] / / Screw 3.5mm 38mm T15 Hexalobe Ft Ankl Implanted:Qty : 1 on 03/08/2017 by Nilesh Mojica DO at [facility] Left: Ankle [employer] [id number] / / Graft Bone Othblst Ii Dbm Canc 1cc [facility] - [id number] Implanted:Qty : 1 on 03/08/2017 by Nilesh Mojica DO at [facility] Left: Ankle [employer] 01/01/2019 / [id number] / [id number] Explanted Type Area Hogshead Salvage Device Identifier Shelf Expiration Date Model / Serial / Lot Jonathan Total Ank Replacement Explanted:Qty: 1 on 03/08/2017 at [facility] Left: Ankle [employer] TOTAL ANKLE REPL MORE / / Screw Qckfix Kyler Canc 4.0 X 46 Explanted:Qty: 1 on 03/08/2017 by Nilesh Mojica DO at [facility] Left: Ankle [employer] [id number] PTS / / Insurance MEDICARE MEDICARE SUPPLEMENT PAYOR GENERIC [facility] Advance Directives Documents on File Type Date Recorded 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
--- OUTSIDE RECORDS SUMMARY | 2024-12-30 06:56 | XMS_ITS | Clinical Summary ---
Author Organization [facility] Address [address] [place] [address] Care Team Providers Care Fruit Thinner Name Role Phone Leticia Handley MD Primary Care Provider [phone] Allergies No known active allergies Medications clopidogrel [...] opa (SINEMET) 25-250 MG tabletIndicatio ns:Parkinson's disease ([facility]) TAKE 1 TABLET BY MOUTH 4 TIMES DAILY 360 tablet 3 03/24/2022 Active pramipexole (MIRAPEX) 1 MG tabletIndicatio ns:Parkinson's disease ([facility]) Take 3 tablets (3 mg total) by [...] 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 08/14/2016 Overview (05/27/2019): Overview: 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 Dyslipidemia associated with type 2 diabetes mellitus ([facility]) 11/15/2015 Overview (05/27/2019): Overview: DM type 2 with diabetic dyslipidemia Hypertensive heart disease w ith congestive heart failure ([facility]) 08/02/2015 Overview (05/27/2019): Overview: Hypertensive heart disease with diastolic heart failure YANET on CPAP 08/02/2015 Overview (05/27/2019): Overview: YANET on CPAP Benign hypertension 04/26/2015 Overview (05/27/2019): Overview: HTN (hypertension), benign Dyslipidemia 04/26/2015 Overview (05/27/2019): Overview: Mixed dyslipidemia Cardiomyopathy ([facility]) 04/26/2015 Overview (05/27/2019): Overview: Cardiomyopathy Myocardial infarction ([facility]) 04/26/20 15 Overview (05/27/2019): Overview: ST elevation [...] CDT Respiratory Rate 18 07/13/2021 2:45 PM SAND SHOVELER Oxygen Saturation 96% 12/16/2021 8:52 AM CDT [...] age to complete this topic Insurance MEDICARE [employer] MEDICARE [employer] Care Teams Fruit Thinner Relationship Specialty Start Date End Date Leticia Handley MD [address] [place] [id number] PCP - General INTERNAL MEDICINE 08/09/18
--- OUTSIDE RECORDS SUMMARY | 2024-12-30 06:56 | XMS_ITS | Encounter Summary ---
Author Organization [facility] Address [address] 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
[2024-12-30 07:43] LABS: Hemoglobin A1C 5.6 % (<5.7)
[2024-12-30 08:04] LABS: Albumin Level 3.8 g/dL (3.5-5.1); Alkaline Phosphatase 121 U/L (38-126); Anion Gap 7 mmol/L (4-12); Aspartate Amino Transferase 25 U/L (17-59); Bilirubin,Total 0.8 mg/dL (0.2-1.3); Blood Urea Nitrogen 20 mg/dL (9-20); Calcium 9.3 mg/dL (8.4-10.2); Carbon Dioxide 29 mmol/L (22-30); Chloride 104 mmol/L (98-107); Cholesterol 102 mg/dL (0-200); Creatine Kinase 75 U/L (55-170); Estimated Glomerular Filt Rate > 60; Glucose 99 mg/dL (65-110); HDL Direct 30 mg/dL; Magnesium 2.3 mg/dL (1.6-2.3); Osmolality Calculated 292 mOsm/kg (285-295); Potassium 4.5 mmol/L (3.4-5.0); Sodium 140 mmol/L (137-145); Total Protein 6.3 g/dL (6.3-8.2); Triglycerides 71 mg/dL (<150)
[2024-12-30 08:11] LABS: Alanine Aminotransferase < 6 U/L (6-50)
[2024-12-30 08:14] LABS: NT Pro B Type Natriuretic Pept 557 pg/mL (19.9-100)
[2024-12-30 08:20] LABS: Free T3 3.66 pg/mL (2.18-3.98)
[2024-12-30 08:22] LABS: Free T4 Free Thyroxine 1.27 ng/dL (0.78-2.19)
[2024-12-30 08:35] LABS: Thyroid Stimulating Hormone 1.760 uIU/mL (0.465-4.680)
[2024-12-30 09:04] LABS: Add Urine Microscopic? NO; Appearance Urine Clear (Clear); Glucose Urine UA Negative (Negative); Leukocyte Esterase Ur Negative (Negative); Nitrate Urine Negative (Negative); Specific Grav Ur 1.025 (1.010-1.020)
== END 2024-12-30 06:52 | disposition home or self-care (01) ==
LOC: CHSLAB 06:53
PROVIDERS: PCP Internal Medicine; Visit Provider Internal Medicine
DX: E78.00 Pure hypercholesterolemia, unspecified (principal); E03.4 Atrophy of thyroid (acquired); I48.19 Other persistent atrial fibrillation; R73.01 Impaired fasting glucose; R06.02 Shortness of breath; I50.9 Heart failure, unspecified
CPT/HCPCS: 36415; 80053; 80061; 81003; 82550; 83036; 83735; 83880; 84439; 84443; 84481

== ENCOUNTER 2025-02-04 14:00 | Outpatient (RCR) | payer MEDICARE, SELFPAY ==
--- NOTE | 2024-11-26 15:13 | OPREHPOC ---
Outpatient Therapy Plan of Care This is a Multidisciplinary Plan of Care that may contain components documented by all disciplines (PT, OT, and ST.) PT Problem 1 PT Problem #1 Knowledge Deficit PT Goal 1 Goal / Goal Update 1. independent and compliant with HEP Target Visit 6 Progress Met PT Problem 2 PT Problem #2 Impaired Balance PT Goal 1 Goal / Goal Update 1. tug to be completed in 45 seconds or less safely with WW. met again today 2. 5x sit to stand to be completed in 35 second or less safely with only 1 attempt required to stand on the initial stand from chair. -partially met, only required 32 seconds but did require 2 attempts to stand from chair 3. tinetti to display improvement by 4 points or better. not met Target Visit 38 Progress Partially Met PT Problem 3 PT Problem #3 Impaired Gait PT Goal 1 Goal / Goal Update 1. improve gait efficiency during 2 minute walk test to achieve 180 ft or better with WW New Goal 06/04/24: Pt. will complete the 6 minute walk test over a distance of 500' or greater. not met but progressing Target Visit 38 Progress Partially Met PT Problem 4 PT Problem #4 Impaired Functional Mobility PT Goal 1 Goal / Goal Update 1. patient to complete all sit to stand bouts from chair with arms during 1st attempt. not met 2. no falls in the last 4 weeks. met - continue to monitor in the next 4 weeks for consistent achievement Target Visit 38 Progress Partially Met PT Problem 5 PT Problem #5 Impaired Functional Mobility PT Goal 1 Goal / Goal Update 1. patient to maintain tug, 5x sit to stand, 6mwt, and tinetti within 5% of all measures from re-evaluation note. Target Visit 34 Progress Not Met
--- NOTE | 2024-11-26 15:13 | PTOPPROG ---
Assessment and note entered by Sabina Mims, PT Evaluation Information Assessment Status Progress Diagnosis Parkinson's Disease ICD-10 Condition Codes (PT) Repeated falls R29.6,Difficulty Walking R26.2, Abnormalities of gait and mobility R26.9 Other ICD-10 Condition Codes ( G20.A1 PT) Onset 03/12/24 Subjective Information Alli feels like therapy helps him maintain his function. He continues to use his walker for ambulation and denies falls. Assessment PT Clinical Summary Mr. Eagle presents for his 38thth skilled PT visit today. He demonstrates further improvement in 5 times sit to stand time as well as improvement in 6MWT distance today, however his TUG time has declined. He continues to struggle with sit to stand due to impaired force production and often compensates for this lack of force by using this thighs against the chair when pushing up to stand. He continues to be a high fall risk as evidenced by his stagnant Tinetti score. Due to the progressive nature of Parkinson's, skilled PT is needed to continue his maintenance program to work on fall prevention, functional mobility, and strength in a safe environment. Plan of Care Interventions Gait Training,Manual Therapy,Neuro Re-education, Patient/Caregiver Education,Therapeutic Activities ,Therapeutic Exercise,Self-Care/Home Management PT Services Indicated Yes Treatment Frequency and 1x/week for 4 additional visits Duration These treatments will address the objective and functional deficits as defined above. The patient will be advanced safely and appropriately in order for the patient to progress towards his/her prior level of function. Additional exercises will be introduced and as well as a comprehensive home exercise program upon discharge, if needed, ?to ensure carryover of functional gains achieved in the clinic. This treatment plan has been reviewed and agreement upon by the patient.
--- NOTE | 2025-01-19 07:37 | OPREHPOC ---
Outpatient Therapy Plan of Care This is a Multidisciplinary Plan of Care that may contain components documented by all disciplines (PT, OT, and ST.) PT Problem 1 PT Problem #1 Knowledge Deficit PT Goal 1 Goal / Goal Update 1. independent and compliant with HEP Target Visit 6 Progress Met PT Problem 2 PT Problem #2 Impaired Balance PT Goal 1 Goal / Goal Update 1. tug to be completed in 45 seconds or less safely with WW. met again today 2. 5x sit to stand to be completed in 35 second or less safely with only 1 attempt required to stand on the initial stand from chair. - not met 3. tinetti to display improvement by 4 points or better. not met Target Visit 46 Progress Partially Met PT Problem 3 PT Problem #3 Impaired Gait PT Goal 1 Goal / Goal Update 1. improve gait efficiency during 2 minute walk test to achieve 180 ft or better with WW New Goal 06/04/24: Pt. will complete the 6 minute walk test over a distance of 500' or greater. not met but progressing Target Visit 46 Progress Partially Met PT Problem 4 PT Problem #4 Impaired Functional Mobility PT Goal 1 Goal / Goal Update 1. patient to complete all sit to stand bouts from chair with arms during 1st attempt. not met 2. no falls in the last 4 weeks. met - continue to monitor in the next 4 weeks for consistent achievement Target Visit 46 Progress Partially Met PT Problem 5 PT Problem #5 Impaired Functional Mobility PT Goal 1 Goal / Goal Update 1. patient to continue to ambulate safely with WW to be independent in the home and community 2. patient to perform 6 minute walk test without rest and with safe use of the WW at all times. met 3. patient to display safe use of WW during transfers to maintain safety and independence. Target Visit 46 Progress Partially Met
--- NOTE | 2025-01-19 07:37 | PTOPREEVAL ---
Assessment and note entered by JT File, PT Evaluation Information Assessment Status Re-evaluation Diagnosis Parkinson's Disease ICD-10 Condition Codes (PT) Repeated falls R29.6,Difficulty Walking R26.2, Abnormalities of gait and mobility R26.9 Other ICD-10 Condition Codes ( G20.A1 PT) Onset 03/12/24 Subjective Information patient reports he feels 'pretty good' today. he reports he feels the therapy continues to help keep him mobile and walking. he reports he does use his walker all the time now to ambulate. Assessment PT Clinical Summary mr. noriega presents to skilled PT services for re -evaluation of his progress in maintenance PT. he continues to benefit from skilled PT to manage his Parkinson's disease. mr. noriega has continued to be able to walk and be independent with continued maintenance PT. continued skilled PT is indicated to continue to avoid falls, and maintain his ability to walk giving him independence and the ability to stay at home with his . Plan of Care Interventions Gait Training,Manual Therapy,Neuro Re-education, Patient/Caregiver Education,Therapeutic Activities ,Therapeutic Exercise,Self-Care/Home Management PT Services Indicated Yes Treatment Frequency and continue skilled maintenance PT 1x weekly for 4 Duration more visits These treatments will address the objective and functional deficits as defined above. The patient will be advanced safely and appropriately in order for the patient to progress towards his/her prior level of function. Additional exercises will be introduced and as well as a comprehensive home exercise program upon discharge, if needed, ?to ensure carryover of functional gains achieved in the clinic. This treatment plan has been reviewed and agreement upon by the patient.
--- NOTE | 2025-01-28 15:21 | OPREHPOC ---
Outpatient Therapy Plan of Care This is a Multidisciplinary Plan of Care that may contain components documented by all disciplines (PT, OT, and ST.) PT Problem 1 PT Problem #1 Knowledge Deficit PT Goal 1 Goal / Goal Update 1. independent and compliant with HEP Target Visit 6 Progress Met PT Problem 2 PT Problem #2 Impaired Balance PT Goal 1 Goal / Goal Update 1. tug to be completed in 45 seconds or less safely with WW. met again today 2. 5x sit to stand to be completed in 35 second or less safely with only 1 attempt required to stand on the initial stand from chair. - not met 3. tinetti to display improvement by 4 points or better. not met Target Visit 50 Progress Partially Met PT Problem 3 PT Problem #3 Impaired Gait PT Goal 1 Goal / Goal Update 1. improve gait efficiency during 2 minute walk test to achieve 180 ft or better with WW -not met New Goal 06/04/24: Pt. will complete the 6 minute walk test over a distance of 500' or greater. -not met Target Visit 50 Progress Not Met PT Problem 4 PT Problem #4 Impaired Functional Mobility PT Goal 1 Goal / Goal Update 1. patient to complete all sit to stand bouts from chair with arms during 1st attempt. not met 2. no falls in the last 4 weeks. met - continue to monitor in the next 4 weeks for consistent achievement Target Visit 50 Progress Partially Met PT Problem 5 PT Problem #5 Impaired Functional Mobility PT Goal 1 Goal / Goal Update 1. patient to continue to ambulate safely with WW to be independent in the home and community met 2. patient to perform 6 minute walk test without rest and with safe use of the WW at all times. not met 3. patient to display safe use of WW during transfers to maintain safety and independence. met Target Visit 50 Progress Partially Met
--- NOTE | 2025-01-28 15:21 | PTOPPROG ---
Assessment and note entered by Jazmyne Shields, PT Evaluation Information Assessment Status Progress Diagnosis Parkinson's Disease ICD-10 Condition Codes (PT) Repeated falls R29.6,Difficulty Walking R26.2, Abnormalities of gait and mobility R26.9 Other ICD-10 Condition Codes ( G20.A1 PT) Onset 03/12/24 Subjective Information Alli Eagle reports he feels like he has gotten weaker over the last couple weeks for unknown reasons. He notes even more difficulty getting out of chairs and feels he can not walk as far as he used to. He has not had any falls but did have a couple near falls when he was reaching for items. He continues to use his walker at all times and always has something to hold onto if he does not have his walker. He continues to drive. Assessment PT Clinical Summary Alli Eagle presents to skilled PT services for re-evaluation of his progress in maintenance PT. He is reporting a decline in his strength recently for unknown reasons. He continues to benefit from skilled PT to manage his Parkinson's disease. He has continued to be able to walk and be independent with continued maintenance PT. Continued skilled PT is indicated to continue to avoid falls, and maintain his ability to walk giving him independence and the ability to stay at home with his . Plan of Care Interventions Gait Training,Manual Therapy,Neuro Re-education, Patient/Caregiver Education,Therapeutic Activities ,Therapeutic Exercise,Self-Care/Home Management PT Services Indicated Yes Treatment Frequency and continue skilled maintenance PT 1x weekly for 4 Duration more visits These treatments will address the objective and functional deficits as defined above. The patient will be advanced safely and appropriately in order for the patient to progress towards his/her prior level of function. Additional exercises will be introduced and as well as a comprehensive home exercise program upon discharge, if needed, ?to ensure carryover of functional gains achieved in the clinic. This treatment plan has been reviewed and agreement upon by the patient.
== END 2025-02-18 20:00 | disposition still patient (30) ==
LOC: CHSPT 14:00
DX: G20.A1 Parkinson's disease without dyskinesia, without mention of fluctuations (principal); R29.6 Repeated falls
CPT/HCPCS: 97110; 97112; 97150; 97530; 97750

== ENCOUNTER → 2025-02-09 11:27 | Outpatient (REF) | payer MEDICARE, SELFPAY ==
--- NOTE | 2025-02-09 11:27 | S_PTH ---
PATIENT: Alli Eagle LOC: [facility] #:[id number] AGE/SX: 84/M ROOM: RE02/09/[address]: Emi Bonner MD : 1940 BED: DIS: SPEC #: [id number] RECD: 02/09/25 12:10 STATUS: ALEJANDRO RERon #: [id number] TAMMIE: 02/09/25 11:[address]: Emi Bonner DEPT: [facility] Surgical RECD BY: Doris Arevalo ENTERED: 02/09/25 12:11 SP TYPE: Surgical OTHR DR: Leticia Handley MD Tissues: A - Skin Procedures: Hematoxylin and Eosin Stain Gross and Microscopic Level 4
--- OUTSIDE RECORDS SUMMARY | 2025-02-09 13:02 | XMS_ITS | Clinical Summary ---
Author Organization [facility] [address] Address [address] [place] [address] Care Team Providers Care Salvage Clerk Name Role Phone Leticia Handley MD Primary Care Provider [phone] Allergies No known active allergies Medications bimatoprost (Lumigan) 0.01 % ophthalmic drops Administer 1 drop into both eyes nightly 06/03/19 22 Active aspirin 81 mg enteric coated tablet Take 1 tablet (81 mg total) by mouth daily 30 tablet 1 06/17/19 23 026 Active polyethylene glycol (MIRALAX) 17 gram packetIndication s:constipation Take 1 packet (17 g total) by mouth daily 20 packet 1 06/17/19 23 Active terazosin (HYTRIN) 10 mg capsule 08/08/19 23 Active vit A/C/E ac/ZnOx/cupric oxide (EYE VITAMIN AND MINERALS ORAL) Take by mouth A ctive atorvastatin (LIPITOR) 20 mg tablet TAKE 1 TABLET BY MOUTH EVERY DAY 90 tablet 1 05/06/20 23 Active ferrous sulfate 325 mg (65 mg of elemental iron) tablet Take 1 tablet (325 mg total) by mouth 3 (three) times a day 01/08/20 24 Active brimonidine-pan loL (COMBIGAN) 0.2-0.5 % ophthalmic [...] 540 tablet 3 08/14/[address] (PROTONIX) 40 mg EC tablet TAKE 1 TABLET BY MOUTH EVERY DAY 90 tablet 3 10/07/19 25 Active potassium chloride ER 10 mEq CR tablet TAKE 1 TABLET/CAPSUL E (10 MEQ TOTAL) BY MOUTH DAILY 90 tablet 2 10/16/19 25 Active furosemide (LASIX) 20 mg tabletIndication s:Edema, lower extremity Take 1 tablet (20 mg total) by mouth daily 90 tablet 3 10/29/19 25 026 Active midodrine (PROAMATINE) 5 mg tabletIndication s:Autonomic orthostatic hypotension Take 5 mg for morning and midday dose and take 10 mg for evening dose. 120 tablet 3 11/04/19 25 Active levothyroxine (SYNTHROID) 88 mcg tablet Take 1 tablet (88 mcg total) by mouth daily 11/24/19 25 Active carbidopa-levodo pa (SINEMET) 25-100 mg per tabletIndication s:Idiopathic Parkinsonism Take 2 tablets by mouth 3 (three) times a day 540 tablet 3 12/17/19 25 026 Active pramipexole (MIRAPEX) 1 mg tablet TAKE 3 TABLETS (3 MG TOTAL) BY MOUTH 3 (THREE) TIMES A DAY 810 tablet 3 02/07/20 25 Active pramipexole (MIRAPEX) 1 mg tablet Take 3 tablets (3 mg total) by mouth 3 (three) times a day 810 tablet 3 01/30/20 24 025 Discontinued Hospital, Clinic, or Other Facility Administered Medication Ordered Dose Route Frequency Start Date End Date Status onabotulinumtoxin A (BOTOX) injection 200 UnitsIndications:Idio pathic Parkinson's disease,Parkinson's disease without dyskinesia or fluctuating manifestations (HCC) 200 Units IM Once for Clinic-Administer ed Medication 12/16/2024 12/16/2025 Active Active Problems Problem Noted Date Diagnosed [...] we should send an updated script to [facility] in 2-3 weeks) -start glycopyrrolate 1mg TID for sialorrhea -if ineffective consider Botox injections Assessment & Plan (03/12/2024 1:31 PM OUTDOOR PURSUITS INSTRUCTOR): 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 [...] placement 11/29/2016 Coronary artery disease invo lving pilot station coronary artery of pilot station heart without angina pectoris 08/14/2016 Overview (09/29/2016): Coronary artery disease involving pilot station coronary artery of pilot station heart with other form of angina pectoris [...] Encounters Date Type Department Care Team Description 01/06/2025 2:30 PM CDT Office Visit [facility] Cardiology at [address] [place] [address] Freeman Chavira MD Coronary artery disease involving pilot station coronary artery of pilot station heart without angina pectoris (Primary Dx); Chronic heart failure with preserved ejection fraction (HFpEF); Postoperative atrial fibrillation (HCC); S/P aortic valve replacement with bioprosthetic valve; YANET on CPAP 12/16/2024 11:30 AM CDT Procedure visit [facility] Disorders [address] [place] [address] [place] [address] Isiah Brown MD PhD Idiopathic Parkinson's disease (Primary Dx); Parkinson's disease without dyskinesia or fluctuating manifestations (HCC) from Last 3 Months Surgical History Surgery [...] Hypertension Hypertension Adiposity Obesity Sleep apnea CPAP [place] (myocardial infarction) (HCC) 2014 CAD (coronary artery disease) Parkinson's disease (HCC) Skin cancer Back Nonrheumatic aortic (valve) stenosis Type 2 diabetes mellitus H/O CHF (congestive heart failure) (HCC) Cardiomyopathy Chronic fatigue syndrome Arthritis Benign prostatic [...] e alcohol) Social Connection and Isolation Panel Answer Date Recorded In a typical week, how [...] on file Legal Sex Male 12:29 AM OUTDOOR PURSUITS INSTRUCTOR Gender Identity Not on file Sexual Orientation Not on file Obstetrics History Last Filed Vital Signs Vital Sign Reading Time Taken Comments Blood Pressure 120/60 01/06/2025 2:37 PM CDT Pulse 58 01/06/2025 2:37 PM CDT Temperature 36.8 C (98.2 F) 08/12/2024 12:47 PM CDT Respiratory Rate 18 04/10/2024 2:18 PM OUTDOOR PURSUITS INSTRUCTOR Oxygen Saturation 96% 01/06/2025 2:37 PM CDT Inhaled Oxygen Concentration - - Weight 83.5 kg (184 lb) 01/06/2025 2:37 PM CDT Height 165.1 cm (5' 5) 01/06/2025 2:37 PM CDT Body Mass Index 30.62 01/06/2025 2:37 PM CDT Plan of Treatment Health Maintenance [...] 09/10/2012, 06/13/2004 Medical Devices Implanted Type Area Customs And Immigration Officer Device Identifier Shelf Expiration Date Model / Serial / Lot Ziggy Medical Plate Bone Low Profile 6 Hole H Shape Ti 115.102.06 - [id number] Implanted:Qty: 1 on 06/05/2022 by Nicolás Arevalo MD at [facility] Plate N/A: Sternum [employer] 115.102. 06 / / Ziggy Medical Plate Bone Low Profile 4 Hole Box Ti 115.103.04 - [id number] Implanted:Qty: 1 on 06/05/2022 by Nicolás Arevalo MD at [facility] Plate N/A: Sternum [employer] 115.103. 04 / / Ziggy Medical Plate Bone Low Profile 6 Hole O Concave Ti 115.604.06 - [id number] Implanted:Qty: 1 on 06/05/2022 by Nicolás Arevalo MD at [facility] Plate N/A: Sternum [employer] 115.604. 06 / / Bhatti [employer] Von-Tim ds Perimount Magna Ease 23mm Bioprosthesis [id number] - [id number] - [id number] Implanted:Qty: 1 on 06/05/2022 by Nicolás Arevalo MD at [facility] Prosthetic Valve N/A: Heart [employer] 07/18/2024 [id number] / [id number] / Ziggy Medical Screw Bone Slf Drl Full Thread Locking 3.5x14mm Ti 100.035.14 - [id number] Implanted:Qty: 10 on 06/05/2022 by Nicolás Arevalo MD at [facility] Screw N/A: Sternum [employer] 100.035. 14 / / Ziggy Medical Screw Bone Slf Drl Full Thread Locking 3.5x16mm Ti 100.035.16 - [id number] Implanted:Qty: 6 on 06/05/2022 by Nicolás Arevalo MD at [facility] Screw N/A: Sternum [employer] 100.035. 16 / / Procedures Procedure Name Priority Date/Time Associated Diagnosis Comments POCT LIPID PANEL Routine 08/02/2023 10:2 9 AM CDT Coronary artery disease involving pilot station coronary artery of pilot station heart without angina pectoris EGFR Routine 06/16/2022 10:03 AM OUTDOOR PURSUITS INSTRUCTOR HEMOGLOBIN A1C Routine 05/30/2022 12:59 PM OUTDOOR PURSUITS INSTRUCTOR Preop testing Type 2 diabetes mellitus with [...] Final Result * eGFR (06/16/2022 10:03 AM OUTDOOR PURSUITS INSTRUCTOR) eGFR 67 mL/min/1. 73 m2 RYAN LUX [...] reviewed 2021. Blood 06/16/2022 10:0 3 AM OUTDOOR PURSUITS INSTRUCTOR 06/16/2022 10:03 AM OUTDOOR PURSUITS INSTRUCTOR Nicolás Arevalo MD LAB BLOOD ORDERABLES Final Res ult Performing Organization Address City/[facility] Co de Phone Number RYAN LUX [address] [address] [facility] [place] [address] * Hemoglobin A1c (05/30/2022 12:59 PM OUTDOOR PURSUITS INSTRUCTOR) Hgb A1C 5.5 4.0 - 5.6 % RYAN LUX Estimated Average Glucose 111 mg/dL RYAN LUX Comment: The ADA recommends reporting an estimated Average Glucose (eAG) with all Hemoglobin A1c results using the equation derived from a study of 507 normal and diabetic adults. Minority populations were underrepresented and children were not included. (Diabetes Care 31:9750-4447, 2008). The eAG is not equivalent to a fasting glucose. Blood 05/30/2022 12:5 9 PM OUTDOOR PURSUITS INSTRUCTOR 05/30/2022 1:03 PM OUTDOOR PURSUITS INSTRUCTOR Nicolás Arevalo MD LAB BLOOD ORDERABLES Final Res ult Performing Organization Address [facility] Co de Phone Number RYAN LUX [address] [address] [facility] [place] [address] from Last 3 Months or Most Recently Relevant to Health Maintenance Insurance MEDICARE [place] [id number] [facility] MEDICARE [place] [address] [facility] [place] [phone] [facility] MEDICARE SUPPLEMENT Advance Directives For more information, please contact: [phone] * Full Code (Latest Code Status on File) Date Activated Date Inactivated Comments 06/05/2022 2:49 PM 06/16/2022 5:28 PM Care Teams Salvage Clerk Relationship Specialty Start Date End Date Leticia Handley MD [address] [place], [place] [id number] PCP - General Internal Medicine 05/08/23
--- OUTSIDE RECORDS SUMMARY | 2025-02-09 13:02 | XMS_ITS | Clinical Summary ---
Author Organization [facility] Address [address] [place] [address] Care Team Providers Care Dress Marker Name Role Phone Leticia Handley MD Primary Care Provider [phone] Allergies No known active allergies Medications clopidogrel [...] opa (SINEMET) 25-250 MG tabletIndicatio ns:Parkinson's disease ([facility]) TAKE 1 TABLET BY MOUTH 4 TIMES DAILY 360 tablet 3 03/24/2022 Active pramipexole (MIRAPEX) 1 MG tabletIndicatio ns:Parkinson's disease ([facility]) Take 3 tablets (3 mg total) [...] artery disease of n ative artery of hoopa heart with stable angina pectoris 08/14/2016 Overview (05/27/2019): Overview: Coronary artery disease involving hoopa coronary artery of hoopa heart with other form of angina pectoris Dyslipidemia associated with type 2 diabetes mellitus ([facility]) 11/15/2015 Overview (05/27/2019): Overview: DM type 2 with diabetic dyslipidemia Hypertensive heart disease w ith congestive heart failure ([facility]) 08/02/2015 Overview (05/27/2019): Overview: Hypertensive heart disease with diastolic heart failure YANET on CPAP 08/02/2015 Overview (05/27/2019): Overview: YANET on CPAP Benign hypertension 04/26/2015 Overview (05/27/2019): Overview: HTN (hypertension), benign Dyslipidemia 04/26/2015 Overview (05/27/2019): Overview: Mixed dyslipidemia Cardiomyopathy ([facility]) 04/26/2015 Overview (05/27/2019): Overview: Cardiomyopathy Myocardial infarction ([facility]) 04/26/20 15 Overview (05/27/2019): Overview: ST [...] CDT Respiratory Rate 18 07/13/2021 2:45 PM 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 Oxygen Saturation 96% 12/16/2021 8:52 AM CDT [...] A1C 11/27/2022 05/30/2022 COVID-19 Vaccine (3 - 2024-2 6 season) 2025 06/29/2020, 06/08/2020 Influenza Adult (#1) 2025 Meningococcal B Vaccine Aged Out No l onger eligible based on patient's age to complete this topic Meningococcal Vaccine Aged Out No rozina joyce eligible based on patient's age to complete this topic RSV Immunizations Under 20 Months Aged Out No longer eligible b ased on patient's age to complete this topic Insurance MEDICARE [employer]IC[employer] Care Teams Dress Marker Relationship Specialty Start Date End Date Leticia Handley MD [address] [place] [id number] PCP - General INTERNAL MEDICINE 08/09/18
--- OUTSIDE RECORDS SUMMARY | 2025-02-09 13:02 | XMS_ITS | Encounter Summary ---
Author Organization [facility] Healthcare Address [address] [place] [address] Care Team Providers Care Microsoft Architect Name Role Phone Leticia Handley MD Primary Care Provider [phone] Karrie Mcgregor DO Primary Care Provide r Leticia Handley MD Primary Care Provider [phone] Encounter Details Date Type Department Care Team (Late st Contact Info) Description 04/22/2019 Telephone [facility] Radiology [address] [place] [address] Steff Shah, RT Social History Tobacco Use Types Packs/Day Years Used Date Smoking Tobacco: Never Smokeless Tobacco: Never Alcohol Use Standard Drinks/Week Comments Yes 0 (1 standard drink = 0.6 oz pur e alcohol) Sex and Gender Information Value Date Recorded Sex Assigned at Not on file Legal Sex Male 12:29 AM PLANT GUIDE Gender Identity Not on file Sexual Orientation Not on file documented as of this encounter Plan of Treatment Not on file documented as of this encounter Visit Diagnoses Not on filedocumented in this encounter Care Teams Microsoft Architect Relationship Specialty Start Date End Date Leticia Handley MD [address] [place] [address] PCP - General 08/11/16 03/21/23 Karrie Mcgregor DO [address] [place] [address] PCP - General Psychiatry 03/22/23 05/07/23 Leticia Handley MD [address] [place] [address] PCP - General Internal Medicine 05/08/23 documented as of this encounter
--- OUTSIDE RECORDS SUMMARY | 2025-02-09 13:02 | XMS_ITS | Clinical Summary ---
Author Organization [facility] Address [address] [place] [address] Care Team Providers Care Meteorological Aide Name Role Phone Leticia Handley MD Primary Care Provider [phone] Nilesh Mojica DO Unavailable [phone] Enoc Sheridan PA-C Unavailable Source Comments [facility],non-owned Affiliates and Associated Physician Practices is amultiple site organization consisting of ambulatory clinics and hospital sitesin [place], [place], [place] and [place]. This disclosure is being madepursuant to the Care Everywhere program and may not contain all information available regarding this patient. Last updated 18.[facility] [employer] Allergies No known active allergies Medications * [...] st Contact Info) Description 03/09/2025 10:40 AM LEAF TINNER Office Visit [facility] Health Orthopedics [address] [facility], [address] [address] Nilesh Mojica DO [facility] [address] [address] Health Maintenance Due Date Last Done Comments MEDICARE AWV 12 MONTHS 1938 DTAP/TDAP/TD VACCINES (1 - Tdap) 1957 PNEUMOCOCCAL VACCINE 50+ (1 of 1 - PCV) 1988 ZOSTER VACCINE (1 of 2) 1988 Respiratory Syncytial Virus (RSV) Vaccine Pt: or over 60 yrs (1 - 1-dose 75+ series) 2013 DEPRESSION SCREENING 05/07/2024 03/12/2023 COVID-19 VACCINE ( - 2023- season) 2025 INFLUENZA VACCINE (#1) 2025 8, 02/04/2007, 03/22/2006, [...] this topic Medical Devices Implanted Type Area Broadcast Supervisor Device Identifier Shelf Expiration Date Model / Serial / Lot Stem Tlr Inbone Ii 1 Lg 10mm Ankl Implanted:Qty : 1 on 03/08/2017 by Nilesh Mojica DO at [facility] Left: Ankle [employer] 12/07/2023 [id number] / / [id number] Long Tibial Tray Implanted:Qty : 1 on 03/08/2017 by Nilesh Mojica DO at [facility] Left: Ankle [employer] 01/09/2025 [id number] / / [id number] Cmpnt Tlr Inbone 3 Dome Ankl Sulcus Implanted:Qty : 1 on 03/08/2017 by Nilesh Mojica DO at [facility] Left: Ankle [employer] 12/09/2024 [id number] / / [id number] Infinity Poly Insert Implanted:Qty : 1 on 03/08/2017 by Nilesh Mojica DO at [facility] Left: Ankle [employer] 10/22/2024 [id number] / / [id number] Screw Qckfix Kyler Canc 4.0 X 46 Implanted:Qty : 1 on 03/08/2017 by Nilesh Mojica DO at [facility] Left: Ankle Arthrex Inc [id number] / / Plate 61mm 3 Hl Hk Lck Ss Ft/Ankl Mdl Implanted:Qty : 1 on 03/08/2017 by Nilesh Mojica DO at [facility] Left: Ankle Ar[employer]rex Inc [id number]-[id number] / / Screw 3.5mm 38mm T15 Hexalobe Ft Ankl Implanted:Qty : 1 on 03/08/2017 by Nilesh Mojica DO at [facility] Left: Ankle Ar[employer] Inc AR-8835-38 / / Graft Bone Othblst Ii Dbm Canc 1cc [facility] - [id number] Implanted:Qty : 1 on 03/08/2017 by Nilesh Mojica DO at [facility] Left: Ankle Inte[employer]iences 01/01/2019 / [id number] / [id number] Explanted Type Area Broadcast Supervisor Device Identifier Shelf Expiration Date Model / Serial / Lot Jonathan Total Ank Replacement Explanted:Qty: 1 on 03/08/2017 at [facility] Left: Ankle [employer] TOTAL ANKLE REPL MORE / / Screw Qckfix Kyler Canc 4.0 X 46 Explanted:Qty: 1 on 03/08/2017 by Nilesh Mojica DO at [facility] Left: Ankle Ar[employer]rex Inc AR-8740-46 PTS / / Insurance MEDICARE MEDICARE SUPPLEMENT PAYOR [facility] Advance Directives Documents on File Type Date Recorded Patient Sap Developer Expl anation Adv Directive/Living Will/POA 03/12/2017 8:08 PM * Full Code (Latest Code Status on File) Date Activated Date Inactivated Comments 03/08/2017 12:28 PM 03/09/2017 4:41 PM Care Teams Meteorological Aide Relationship Specialty Start Date End Date Leticia Handley MD PCP - General Internal Medicine 12/06/16 Nilesh Mojica DO Orthopedic Surgery 12/06/16 Enoc Sheridan, PAMonieC [address] [address] Physician Nurse Monitoring Physician Nurse Monitoring 03/13/17
--- OUTSIDE RECORDS SUMMARY | 2025-02-09 13:02 | XMS_ITS | Encounter Summary ---
Author Organization [facility] Group Address [address] [place] [address] Care Team Providers Care Word Processing Operator Name Role Phone Leticia Handley MD Primary Care Provider [phone] Karrie Mcgregor DO Primary Care Provide r Leticia Handley MD Primary Care Provider + [phone] Encounter Details Date Type Department Care Team (Late st Contact Info) Description 08/15/2016 Orders Only [facility] ProviderNila MD [address] [place] [address] Social History Tobacco Use Types Packs/Day Years Used Date Smoking Tobacco: Never Alcohol Use Standard Drinks/Week Comments Yes 0 (1 standard drink = 0.6 oz pur e alcohol) Sex and Gender Information Value Date Recorded Sex Assigned at Not on file Legal Sex Male 12:29 AM CAT BREEDER Gender Identity Not on file Sexual Orientation [...] on filedocumented in this encounter Care Teams Word Processing Operator Relationship Specialty Start Date End Date Leticia Handley MD [address] [place] [address] PCP - General 08/11/16 03/21/23 Karrie Mcgregor DO [address] [place] [address] PCP - General Psychiatry 03/22/23 05/07/23 Leticia Handley MD [address] [place] [address] PCP - General Internal Medicine 05/08/23 documented as of this encounter
--- OUTSIDE RECORDS SUMMARY | 2025-02-09 13:02 | XMS_ITS | Encounter Summary ---
Author Organization [facility] Address [address] [place] [address] Care Team Providers Care Dean Of Girls Name Role Phone Leticia Handley MD Primary Care Provider Nilesh Mojica DO Unavailable Enoc Sheridan PA-C Unavailable [phone] Encounter Details Date Type Department Care Team (Late st Contact Info) Description 12/06/2016 [facility] Outpatient Visit [facility] Orthopedics - Radiology [address] [place] [address] Nilesh Mojica [facility] Medical [address] [address] Social History Tobacco Use Types [...] st Contact Info) Description 03/09/2025 10:40 AM DEPALLETIZER OPERATOR Office Visit [facility] Health Orthopedics [address], [address] [address] Nilesh Mojica [address] [address] documented as of this encounter Visit Diagnoses Not on filedocumented in this encounter Care Teams Dean Of Girls Relationship Specialty Start Date End Date Leticia Handley MD PCP - General Internal Medicine 12/06/16 Nilesh Mojica DO Orthopedic Surgery 12/06/16 Enoc Sheridan PA-C [address] [place] [address] [place] [address] Physician Rotary Furnace Operator Physician Rotary Furnace Operator 03/13/17 documented as of this encounter
== END ==
LOC: ANHLAB 11:27
PROVIDERS: PCP Internal Medicine; Visit Provider Plastic Surgery
DX: D48.5 Neoplasm of uncertain behavior of skin (principal)
CPT/HCPCS: 88305

== ENCOUNTER 2025-02-10 10:37 | Outpatient (CLI) | payer MEDICARE, SELFPAY ==
--- OUTSIDE RECORDS SUMMARY | 2024-09-25 10:10 | XMS_ITS ---
Author Organization [facility] Address [address] [place], [place] [address] Care Team Providers Care Performance Instructor Name Role Phone ANASTASIIA ORNELAS Unavailable [phone] Estela Handley Unavailable Unavailable OPAL ROBISON Unavailable [phone] REASON FOR VISIT *General care Medications Medication SIG (Take, Route, Frequency, Duration) Notes Start Date End Date Status Aspirin 81 MG 1 tablet Orally Once a day Active Vital Signs Height 66.00 in 09/25/2024 Weight 200 lbs 09/25/2024 BMI 32.28 kg/m2 09/25/2024 Height-cm 167.64 cm 09/25/2024 Weight-kg 90.72 kg 09/25/2024 Encounters Encounter Location Date Provider Diagnosis [address] [id number] 09/25/2024 OPAL ROBISON Tinea unguium B35.1 ; Pain in right foot M79.671 ; Pain in left foot M79.672 ; Atherosclerosis of [place] arteries of extremities with intermittent claudication, bilateral [...] foot (ICD-10 - M79.672) 09/25/2024 Atherosclerosis of havasupai arteries of extremities with intermittent claudication, bilateral [...] sooner if problems develop. Provider Name:OPAL GUZMAN, 04/16/2025 01:50:00 PM, [address] [place] [address], [id number], Progress Notes * KATIE CRUZDOB:1940 (84 yo M)Acc No.[id number]:09/25/2024 Patient: KATIE HOGAN Provider: Royer ROBISON :1940 A ge:83 Y S ex:Male Date:09/25/2024 Address: [place] [address] Subjective: * Chief Complaints: * 1 . [...] Patient denies c hest pain, history of [place], irregular heartbeat. M usculoskeletal: Patient complains of [...] - M79.672 4 . A therosclerosis of [place]vasupai arteries of extremities with intermittent claudication, bilateral [...] LESIONS, 2 TO 4, Modifiers: Q8 , 94460 DEBRIDE NAIL, 6 OR MORE, Modifiers: 59 , Q8 * Follow Up: 1 0 - 12 weeks (Reason: At-Risk Foot care, sooner if problems develop.) * Billing Information: * Visit Code: * Procedure Codes: 15505 TRIM SKIN LESIONS, 2 TO 4. Modifiers: Q8 12756 DEBRIDE NAIL, 6 OR MORE. Modifiers: 59, Q8 * Electronic signature of BRIGHT ROBISON DPM on 02/10/2025 at 11:42 AM CDT Sign off status: Pending * Provider: Royer ROBISON Date: 0 09/25/2024 Generated for Joseph jang/Triny/Enzo on: 1 11:42 AM CDT History and Physical Notes * [...]
--- OUTSIDE RECORDS SUMMARY | 2024-12-04 09:30 | XMS_ITS ---
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 Offbearer Name Role Phone ANASTASIIA ORNELAS Unavailable [phone] Estela Handley Unavailable Unavailable OPAL ROBISON Unavailable [phone] REASON FOR VISIT *General care Medications Medication SIG (Take, Route, Frequency, Duration) Notes Start Date End Date Status Aspirin 81 MG 1 tablet Orally Once a day Active Encounters Encounter Location Date Provider Diagnosis [address] [id number] 12/04/2024 OPAL ROBISON Tinea unguium B35.1 ; [...] foot (ICD-10 - M79.672) 12/04/2024 Atherosclerosis of [place] arteries of extremities with [...] debris and necrotic tissue removed Atherosclerosis of [place] ar teries of extremities with intermittent claudication, [...] develop. Provider Name:OPAL GUZMAN, 04/16/2025 01:50:00 PM, [address] [place] [address], [id number], Progress Notes * KATIE CRUZDOB:1940 (84 yo M)Acc No.[id number]:12/04/2024 Patient: KATIE HOGAN Provider: Royer ROBISON :1940 A ge:84 Y S ex:Male Date:12/04/2024 Address: [facility] Subjective: * Chief Complaints: * 1 . *General care. * ROS: G eneral / Constitutional: Patient denies w eakness. R espiratory: Patient denies c hronic cough, shortness of breath, sputum production. C ardiovascular: Patient denies c hest pain, history of [place], irregular heartbeat. M usculoskeletal: Patient complains of a [facility] pain, hammertoes. ? P eripheral Vascular: Patient [...] - M79.672 4 . A therosclerosis of [place] arteries of extremities with intermittent claudication, bilateral legs - I70.213 5 . Acquired keratosis [keratoderma] palmaris et plantaris - L85.1 Plan: * Treatment: 2. A therosclerosis of [place] arteries of extremities with intermittent [...] LESIONS, 2 TO 4, Modifiers: Q8 , 97550 DEBRIDE NAIL, 6 OR MORE, Modifiers: 59 , Q8 * Follow Up: 1 0 - 12 weeks (Reason: At-Risk Foot care, sooner if problems develop.) * Billing Information: * Visit Code: * Procedure Codes: 48865 TRIM SKIN LESIONS, 2 TO 4. Modifiers: Q8 31313 DEBRIDE NAIL, 6 OR MORE. Modifiers: 59, Q8 * Electronic signature of BRIGHT ROBISON DPM on 02/10/2025 at 11:42 AM CDT Sign off status: Pending * Provider: Royer ROBISON Date: 0 12/04/2024 Generated for Joseph Fisher on: 11:42 AM CDT History and Physical Notes [...]
--- OUTSIDE RECORDS SUMMARY | 2025-02-05 09:00 | XMS_ITS ---
Author Organization [facility] Address [address] [place], [place] [id number] Care Team Providers Care [place] Worker Name Role Phone ANASTASIIA ORNELAS Unavailable [phone] Estela Handley Unavailable Unavailable OPAL ROBISON Unavailable [phone] Allergies No Known Allergies REASON FOR VISIT *General care Medications Medication SIG (Take, Route, Frequency, Duration) Notes Start Date End Date Status Aspirin 81 MG 1 tablet Orally Once a day Active Vital Signs Height 66.00 in 02/05/2025 Weight 200 lbs 02/05/2025 BMI 32.28 kg/m2 02/05/2025 Height-cm 167.64 cm 02/05/2025 Weight-kg 90.72 kg 02/05/2025 Encounters Encounter Location Date Provider Diagnosis [address] [id number] 02/05/2025 OPAL ROBIOSN Tinea unguium B35.1 ; Pain in right foot M79.671 ; Pain in left foot M79.672 ; 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, bilateral legs I70.213 ; Acquired keratosis [keratoderma] palmaris et plantaris L85.1 and Ingrowing nail L60.0 Assessments Encounter Date Diagnosis (ICD Code) Assessment Notes Treatment Notes Treatment Clinical Notes Section Notes 02/05/2025 Tinea unguium (ICD-10 - B35.1) Nails 1-5 Bilateral were debrided extensively with nail nippers and emery board, reducing length and girth to pink healthy tissue with any subungual debris and necrotic tissue removed 02/05/2025 Pain in right foot (ICD-10 - M79.671) 02/05/2025 Pain in left foot (ICD-10 - M79.672) 02/05/2025 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 Check and protect LE bilateral daily. Call if any changes or concerns. 02/05/2025 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.1) A total of 2 corns or calluses, as described in the note above, were cut and pared utilizing a #15 blade 02/05/2025 Ingrowing nail (ICD-10 - L60.0) Partial Nail Avulsion left hallux bilateral edges: I discussed various treatment options to the patient for their nail condition. The patient decided on non-permenant removal of the nail border. The consent was signed and placed in the patients chart and all questions were answered. Following skin prep, the toe was injected with 3ccs of a 1:1 mixture of 0.5% marcaine plain and 1% lidocaine plain. A digital tournequet was applied and the offending nail border was removed. The digital tourniquet was released and the toe was cleansed with isopropyl aclcohol. A dry sterile compressive dressing was applied and the patient was given soaking instructions. Plan Of Treatment Treatment Notes Assessment Notes Tinea unguium Nails 1-5 Bilateral were debrided extensively with nail nippers and emery board, reducing length and girth to pink healthy tissue with any subungual debris and necrotic tissue removed Atherosclerosis of washoe ar teries of extremities with intermittent claudication, [...] cut and pared utilizing a #15 blade Ingrowing nail Partial Nail Avulsion left hallux bilateral edges: I discussed various treatment options to the patient for their nail condition. The patient decided on non-permenant removal of the nail border. The consent was signed and placed in the patients chart and all questions were answered. Following skin prep, the toe was injected with 3ccs of a 1:1 mixture of 0.5% marcaine plain and 1% lidocaine plain. A digital tournequet was applied and the offending nail border was removed. The digital tourniquet was released and the toe was cleansed with isopropyl aclcohol. A dry sterile compressive dressing was applied and the patient was given soaking instructions. Next Appt Details Follow Up: 10 - 12 weeks, Re ason: At-Risk Foot care, sooner if problems develop. Provider Name:OPAL GUZMAN, 04/16/2025 01:50:00 PM, [address] [place] [address], [phone], Progress Notes * KATIE CRUZDOB:1940 (84 yo M)Acc No.[id number]:02/05/2025 Progress Notes Patient: KATIE HOGAN Provider: Royer ROBISON :1940 A ge:84 Y S ex:Male Date:02/05/2025 Address:[address] [place] [address] Subjective: * Chief Complaints: * 1 . [...] last seen by Dr. Handley was January 2025., Initials ab. * ROS: G eneral / Constitutional: Patient denies w eakness. R espiratory: Patient denies c hronic cough, shortness of breath, sputum production. C ardiovascular: Patient denies c hest pain, history of [place], irregular heartbeat. M usculoskeletal: Patient complains of a rch pain, hammertoes. ? P eripheral Vascular: Patient denies b lanching of skin, cold extremities, decreased sensation in extremities. S kin: Patient complains of f ungal nails, nail changes. ? N eurologic: Patient denies d izziness, gait abnormality, headache. * Medical History: N o Reported Medical History.Medical History Verified. * Surgical History: T otal ankle replacement 2014. * Hospitalization/Major Diagno stic Procedure: D enies Past Hospitalization. * Family History: N on-Contributory. * Social History: M igrated Social History: M igrated Social History: History of tobacco use : , Smoking Status : Never used tobacco. * Medications: T tomg Aspirin 81 MG Tablet Chewable 1 tablet Orally Once a day , Medication List reviewed and reconciled with the patient * Allergies: N .K.D.A. Objective: * Vitals: W t: 200 lbs, [...] subungual debris. They are painful to palpation. Ingrown Nail N ail is incurvated on the, bilateral border of the right and left great toenail. V ascular: Dorsalis pedis pulse: 1 /4 [...] many toes sign bilateral left > right.. V ascular: Dorsalis pedis pulse: b ilateral, 1/4. Posterior tibial pulse: b ilaterally, 1/4. Edema: b ilateral, +2, pitting edema, diffuse, to the level of mid tibia. Assessment: * Assessment: 1. T inea unguium - B35.1 (Primary) 2 . P ain in right foot - M79.671 ? 3 . P ain in left foot - M79.672 4 . 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 Acquired keratosis [keratoderma] palmaris et plantaris - L85.1 6 . I ngrowing nail - L60.0 Plan: * Treatment: 2. A therosclerosis of washoe arteries of extremities with intermittent claudication, bilateral [...] cut and pared utilizing a #15 blade 4. I ngrowing nail Notes: Partial Nail Avulsion left hallux bilateral edges: I discussed various treatment options to the patient for their nail condition. The patient decided on non-permenant removal of the nail border. The consent was signed and placed in the patients chart and all questions were answered. Following skin prep, the toe was injected with 3ccs of a 1:1 mixture of 0.5% marcaine plain and 1% lidocaine plain. A digital tournequet was applied and the offending nail border was removed. The digital tourniquet was released and the toe was cleansed with isopropyl aclcohol. A dry sterile compressive dressing was applied and the patient was given soaking instructions. * Follow Up: 1 0 - 12 weeks (Reason: At-Risk Foot care, sooner if problems develop.) * Billing Information: * Visit Code: * Procedure Codes: * Electronic signature of BRIGHT ROBISON DPM on 02/10/2025 at 11:43 AM CDT Sign off status: Pending * Provider: Royer ROBISON Date: Generated for Joseph jang/Triny/Enzo on: 11:43 AM CDT History and Physical Notes * [...] last seen by Dr. Handley was January 2025., Initials ab Examination Category Sub-Category Detail Notes Category Not [...] aspect of the left 1st metatarsal head Ingrown Nail Nail is incurvated o n the, bilateral border of the right and left great toenail Neurologic Gross sensation Grossly intact t o [...] many toes sign bilateral left > right. Vascular Dorsalis pedis pulse: bilateral, 1/4 Posterior tibial pulse: bilaterally, 1/4 Edema: bilateral, +2, pitti ng edema, diffuse, to the level of mid tibia
[2025-02-10 10:58] LABS: Hematocrit 40.1 % (37.0-46.0); Hemoglobin 12.8 g/dL (12.4-15.3); Mean Corpuscular HGB Conc 31.9 g/dL (32-36); Mean Corpuscular Hemoglobin 30.9 pg (27.0-31.0); Mean Corpuscular Volume 96.9 fL (78.0-102.0); Platelet Count Result 145 K/mm3 (150-420); Red Blood Count 4.14 M/mm3 (4.70-6.10); White Blood Count 6.6 K/mm3 (4.8-10.8)
[2025-02-10 10:59] LABS: Add Urine Microscopic? NO; Appearance Urine Clear (Clear); Glucose Urine UA Negative (Negative); Leukocyte Esterase Ur Negative LEU/UL (Negative); Nitrate Urine Negative (Negative); Specific Grav Ur <= 1.005 (1.010-1.020)
[2025-02-10 11:23] LABS: Albumin Level 3.7 g/dL (3.5-5.1); Alkaline Phosphatase 109 U/L (38-126); Amylase 48 U/L (30-110); Anion Gap 5 mmol/L (4-12); Aspartate Amino Transferase 25 U/L (17-59); Bilirubin,Total 0.6 mg/dL (0.2-1.3); Blood Urea Nitrogen 20 mg/dL (9-20); CRP < 0.5 mg/dL (<1.0); Calcium 8.9 mg/dL (8.4-10.2); Carbon Dioxide 32 mmol/L (22-30); Chloride 106 mmol/L (98-107); Estimated Glomerular Filt Rate > 60; Glucose 94 mg/dL (65-110); Lipase 52 U/L (23-300); Osmolality Calculated 298 mOsm/kg (285-295); Potassium 4.6 mmol/L (3.4-5.0); Sodium 143 mmol/L (137-145); Total Protein 6.6 g/dL (6.3-8.2)
[2025-02-10 11:25] LABS: Alanine Aminotransferase < 6 U/L (6-50)
[2025-02-10 11:31] LABS: NT Pro B Type Natriuretic Pept 457 pg/mL (19.9-100)
[2025-02-10 11:36] LABS: Free T3 3.01 pg/mL (2.18-3.98)
[2025-02-10 11:38] LABS: Free T4 Free Thyroxine 1.04 ng/dL (0.78-2.19)
--- OUTSIDE RECORDS SUMMARY | 2025-02-10 11:43 | XMS_ITS | Clinical Summary ---
Author Organization [facility] Address [address] [place] [address] Care Team Providers Care Intelligence Senior Sergeant Name Role Phone Leticia Handley MD Primary Care Provider [phone] Nilesh Mojica DO Unavailable [phone] Enoc Sheridan PA-C Unavailable [phone] Source Comments [facility],non-owned Affiliates and Associated Physician Practices is amultiple site organization consisting of ambulatory clinics and hospital sitesin [place], [place], [place] and [place]. This disclosure is being madepursuant to the Care Everywhere program and may not contain all information available regarding this patient. Last updated 18.[facility] [email or web address] Allergies No known active allergies Medications * [...] st Contact Info) Description 03/09/2025 10:40 AM GAMING ASSOCIATE Office Visit [facility] Health Orthopedics [address] [facility], [address] [address] Nilesh Mojica DO [facility] Medical [address] [address] Health Maintenance Due Date Last [...] this topic Medical Devices Implanted Type Area Laboratory Veterinarian Device Identifier Shelf Expiration Date Model / Serial / Lot Stem Tlr Inbone Ii 1 Lg 10mm Ankl Implanted:Qty : 1 on 03/08/2017 by Nilesh Mojica DO at [facility] Left: Ankle [employer] 12/07/2023 [id number] / / [id number] Long Tibial Tray Implanted:Qty : 1 on 03/08/2017 by Nilesh Mojica DO at [facility] Left: Ankle [employer] 01/09/2025 [id number] / / [id number] Cmpnt Tlr Inbone 3 Dome Ankl Sulcus Implanted:Qty : 1 on 03/08/2017 by Nilesh Mojica DO at [facility] Left: Ankle [employer] 12/09/2024 [id number] / / [id number] Infinity Poly Insert Implanted:Qty : 1 on 03/08/2017 by Nilesh Mojica DO at [facility] Left: Ankle [employer] 10/22/2024 [id number] / / [id number] Screw Qckfix Kyler Canc 4.0 X 46 Implanted:Qty : 1 on 03/08/2017 by Nilesh Mojica DO at [facility] Left: Ankle Arthrex Inc [id number] / / Plate 61mm 3 Hl Hk Lck Ss Ft/Ankl Mdl Implanted:Qty : 1 on 03/08/2017 by Nilesh Mojica DO at [facility] Left: Ankle Arthrex Inc [id number]-[id number] / / Screw 3.5mm 38mm T15 Hexalobe Ft Ankl Implanted:Qty : 1 on 03/08/2017 by Nilesh Mojica DO at [facility] Left: Ankle Arthrex Inc AR-[id number] / / Graft Bone Othblst Ii Dbm Canc 1cc [facility] - [id number] Implanted:Qty : 1 on 03/08/2017 by Nilesh Mojica DO at [facility] Left: Ankle Integra [employer]iences 01/01/2019 / [id number] / [id number] Explanted Type Area Laboratory Veterinarian Device Identifier Shelf Expiration Date Model / Serial / Lot Jonathan Total Ank Replacement Explanted:Qty: 1 on 03/08/2017 at [facility] Left: Ankle [employer] TOTAL ANKLE REPL MORE / / Screw Qckfix Kyler Canc 4.0 X 46 Explanted:Qty: 1 on 03/08/2017 by Nilesh Mojica DO at [facility] Left: Ankle Arthrex Inc AR-[id number] PTS / / Insurance MEDICARE MEDICARE SUPPLEMENT [facility] Advance Directives Documents on File Type Date Recorded Patient Stone Crusher Operator Expl anation Adv Directive/Living Will/POA 03/12/2017 8:08 PM * Full Code (Latest Code Status on File) Date Activated Date Inactivated Comments 03/08/2017 12:28 PM 03/09/2017 4:41 PM Care Teams Intelligence Senior Sergeant Relationship Specialty Start Date End Date Leticia Handley MD PCP - General Internal Medicine 12/06/16 Nilesh Mojica DO Orthopedic Surgery 12/06/16 Enoc Sheridan, PAMonieC [address] [address] Physician Sulfonation Equipment Operator Physician Sulfonation Equipment Operator 03/13/17
--- OUTSIDE RECORDS SUMMARY | 2025-02-10 11:43 | XMS_ITS | Patient Health Record ---
Author Organization [facility] Address [address] [place], [place] [address] Care Team Providers Care Fast Food Manager Name Role Phone ANASTASIIA ORNELAS Unavailable [phone] Estela Handley Unavailable Unavailable CARLOS STEVE Unavailable [phone] OPAL ROBISON Unavailable [phone] Allergies No Known Allergies Reason For Referral No Information Medications Medication SIG (Take, Route, Frequency, Duration) Notes Start Date End Date Status Aspirin 81 MG 1 tablet Orally Once a day Active Immunizations Vaccine Route Administration Date Status Comme nts Influenza, high dose seasonal Unknown 02/12/2023 Admini stered Vital Signs Height-cm 167.64 cm 02/05/2025 Weight-kg 90.72 kg 02/05/2025 Height 66.00 in 02/05/2025 Weight 200 lbs 02/05/2025 BMI 32.28 kg/m2 02/05/2025 Encounters Encounter Location Date Provider Diagnosis [address] [id number] 09/25/2024 OPAL ROBISON Tinea unguium B35.1 ; Pain in right foot M79.671 ; Pain in left foot M79.672 ; 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, bilateral legs I70.213 and Acquired keratosis [keratoderma] palmaris et plantaris L85.[address] [id number] 12/04/2024 OPAL ROBISON Tinea unguium B35.1 ; Pain in right foot M79.671 ; Pain in left foot M79.672 ; 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, bilateral legs I70.213 and Acquired keratosis [keratoderma] palmaris et plantaris L85.[address] [id number] 02/05/2025 OPAL SHOEMAKERFORD Tinea unguium B35.1 ; Pain in right foot M79.671 ; Pain in left foot M79.672 ; 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, bilateral legs I70.213 ; Acquired keratosis [keratoderma] palmaris et plantaris L85.1 and Ingrowing nail L60.[address] [id number] 04/10/2024 CARLOS STEVE Other hammer toe(s) (acquired), right foot M20.41 ; Tinea unguium B35.1 ; Other hammer toe(s) (acquired), left foot M20.42 ; Pain in right toe(s) M79.674 ; Pain in left toe(s) M79.675 ; Pain in right foot M79.671 ; Pain in left foot M79.672 ; 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match-[place]-be-n[place]ish band arteries of extremities, bilateral legs I70.203 and Acquired keratosis [keratoderma] palmaris et plantaris L85.[address] [id number] 05/22/2024 ANASTASIIA SNOOK Tinea unguium B35.1 ; Pain in right foot M79.671 ; Pain in left foot M79.672 ; 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, bilateral legs I70.213 and Acquired keratosis [keratoderma] palmaris et plantaris L85.[address] [id number] 07/24/2024 ANASTASIIA SNOOK Tinea unguium B35.1 ; Pain in right foot M79.671 ; Pain in left foot M79.672 ; 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, bilateral legs I70.213 and Acquired keratosis [keratoderma] palmaris et plantaris L85.1 Assessments Encounter Date Diagnosis (ICD Code) Assessment Notes Treatment Notes Treatment Clinical Notes Section Notes 04/10/2024 Tinea unguium (ICD-10 - B35.1) Aseptic [...] in right foot (ICD-10 - M79.671) 02/05/2025 Tinea unguium (ICD-10 - B35.1) Nails 1-5 Bilateral were debrided extensively with nail nippers and emery board, reducing length and girth to pink healthy tissue with any subungual debris and necrotic tissue removed 02/05/2025 Pain in right foot (ICD-10 - M79.671) 02/05/2025 Pain in left foot (ICD-10 - M79.672) 12/04/2024 Pain in left foot (ICD-10 - M79.672) 09/25/2024 Pain in left foot (ICD-10 - M79.672) 07/24/2024 Pain in left foot (ICD-10 - M79.672) 05/22/2024 Pain in left foot (ICD-10 - M79.672) 04/10/2024 Other hammer toe(s) (acquired), left foot (ICD-10 - M20.42) 07/24/2024 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, bilateral legs (ICD-10 - I70.213) 05/22/2024 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, bilateral legs (ICD-10 - I70.213) 04/10/2024 Pain in right toe(s) (ICD-10 - M79.674) 09/25/2024 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, bilateral legs (ICD-10 - I70.213) 12/04/2024 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, bilateral legs (ICD-10 - I70.213) Patient educated on risks and aggravating factors of PVD, including conservative treatment options such as a diet and exercise regimen to aid in slowing progression of vascular disease. Check and protect LE bilateral daily. Call if any changes or concerns. 02/05/2025 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, bilateral [...] cut and pared utilizing a #15 blade 12/04/2024 Acquired keratosis [keratoderma] palmaris et plantaris [...] utilizing a #15 blade 04/10/2024 Pain in right foot (ICD-10 - M79.671) 02/05/2025 Ingrowing nail (ICD-10 - L60.0) Partial [...] and the patient was given soaking instructions. 04/10/2024 Pain in left foot (ICD-10 - M79.672) 04/10/2024 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match-e-be-nash-she-wish band arteries of extremities, bilateral legs (ICD-10 - [...] Treatment Next Appt Details Provider Name:OPAL GUZMAN, 04/16/2025 01:50:00 PM, [address] [place] [address], [id number], Insurance Providers Payer Name Payer Address Payer Phone Subscriber Number Group Number Insured Name Patient Relationship to Insured Coverage Start Date Coverage End Date Medicare Part B [place] [address] [place] [address] [id number] KATIE CRUZ Self - patient is the insured [facility] ([facility] ATTN CLAIMS [address] [place] [address] [id number] KATIE CRUZ Self - patient is the insured 4 Medical (General) History Surgical History Surgery Date(Month/Year) Total ankle replacement 2014
--- OUTSIDE RECORDS SUMMARY | 2025-02-10 11:43 | XMS_ITS | Clinical Summary ---
Author Organization [facility] Address [address] [place] [address] Care Team Providers Care Brake Lining Finisher Name Role Phone Leticia Handley MD Primary Care Provider [phone] Allergies No known active allergies Medications clopidogrel [...] opa (SINEMET) 25-250 MG tabletIndicatio ns:Parkinson's disease ([facility]) TAKE 1 TABLET BY MOUTH 4 TIMES DAILY 360 tablet 3 03/24/2022 Active pramipexole (MIRAPEX) 1 MG tabletIndicatio ns:Parkinson's disease (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 Dyslipidemia associated with type 2 diabetes mellitus ([facility]) 11/15/2015 Overview (05/27/2019): Overview: DM type 2 with diabetic dyslipidemia Hypertensive heart disease w ith congestive heart failure ([facility]) 08/02/2015 Overview (05/27/2019): Overview: Hypertensive heart disease with diastolic heart failure YANET on CPAP 08/02/2015 Overview (05/27/2019): Overview: YANET on CPAP Benign hypertension 04/26/2015 Overview (05/27/2019): Overview: HTN (hypertension), benign Dyslipidemia 04/26/2015 Overview (05/27/2019): Overview: Mixed dyslipidemia Cardiomyopathy ([facility]) 04/26/2015 Overview (05/27/2019): Overview: Cardiomyopathy Myocardial infarction ([facility]) 04/26/20 15 Overview (05/27/2019): Overview: [...] CDT Respiratory Rate 18 07/13/2021 2:45 PM CARBON BLOCKS PRESS OPERATOR Oxygen Saturation 96% 12/16/2021 8:52 AM [...] age to complete this topic Insurance MEDICARE [employer]ICARE [employer] Care Teams Brake Lining Finisher Relationship Specialty Start Date End Date Leticia Handley MD [address] [place] [id number] PCP - General INTERNAL MEDICINE 08/09/18
--- OUTSIDE RECORDS SUMMARY | 2025-02-10 11:43 | XMS_ITS | Clinical Summary ---
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 [...] placement 11/29/2016 Coronary artery disease invo lving sa[place]-su[place] coronary artery of sa[place] heart without angina pectoris 08/14/2016 Overview (09/29/2016): Coronary artery disease involving [place] coronary artery of [place] heart with other form of angina pectoris [...] Description 01/06/2025 2:30 PM CDT Office Visit [facility] Medical Group Cardiology at [address] [place] [address] Freeman Chavira MD Coronary artery disease involving sa[place] coronary artery of sa[place] heart without angina pectoris (Primary Dx); Chronic heart failure with preserved ejection fraction (HFpEF); Postoperative atrial fibrillation (HCC); S/P aortic valve replacement with bioprosthetic valve; YANET on CPAP 12/16/2024 11:30 AM CDT Procedure visit [facility] Movement Disorders [address] [place] [address] [place] [address] Isiah Brown MD PhD Idiopathic Parkinson's disease [...] Hypertension Hypertension Adiposity Obesity Sleep apnea CPAP [place] (myocardial infarction) (HCC) 2014 CAD (coronary artery [...] relatives? Three times a week 06/06/2022 Attends Spiritism Services Not on file 06/06 Active Member [...] on file Legal Sex Male 12:29 AM HOUSE PIPING INSPECTOR Gender Identity Not on file Sexual Orientation Not on file Obstetrics History Last Filed Vital Signs Vital Sign Reading Time Taken Comments Blood Pressure 120/60 01/06/2025 2:37 PM CDT Pulse 58 01/06/2025 2:37 PM CDT Temperature 36.8 C (98.2 F) 08/12/2024 12:47 PM CDT Respiratory Rate 18 04/10/2024 2:18 PM HOUSE PIPING INSPECTOR Oxygen Saturation 96% 01/06/2025 2:37 PM CDT [...] 09/10/2012, 06/13/2004 Medical Devices Implanted Type Area Policy Adviser Device Identifier Shelf Expiration Date Model / Serial / Lot Ziggy Medical Plate Bone Low Profile 6 Hole H Shape Ti 115.102.06 - [id number] Implanted:Qty: 1 on 06/05/2022 by Nicolás Arevalo MD at [facility] Plate N/A: Sternum [employer] 115.102. 06 / / Ziggy Medical Plate Bone Low Profile 4 Hole Box Ti 115.103.04 - [id number] Implanted:Qty: 1 on 06/05/2022 by Nicolás Arevalo MD at [facility] Plate N/A: Sternum [employer] 115.103. 04 / / Ziggy Medical Plate Bone Low Profile 6 Hole O Concave Ti 115.604.06 - [id number] Implanted:Qty: 1 on 06/05/2022 by Nicolás Arevalo MD at [facility] Plate N/A: Sternum [employer] 115.604. 06 / / Bhatti [employer]iences Von-Tim ds Perimount Magna Ease 23mm Bioprosthesis [id number] - [id number] - [id number] Implanted:Qty: 1 on 06/05/2022 by Nicolás Arevalo MD at [facility] Prosthetic Valve N/A: Heart [employer] 07/18/2024 [id number] / [id number] / Ziggy Medical Screw Bone Slf Drl Full Thread Locking 3.5x14mm Ti 100.035.14 - [id number] Implanted:Qty: 10 on 06/05/2022 by Nicolás Arevalo MD at [facility] Screw N/A: Sternum [employer] 100.035. 14 / / Ziggy Medical Screw Bone Slf Drl Full Thread Locking 3.5x16mm Ti 100.035.16 - [id number] Implanted:Qty: 6 on 06/05/2022 by Nicolás Arevalo MD at [facility] Screw N/A: Sternum [employer] 100.035. 16 / / Procedures Procedure Name Priority Date/Time Associated Diagnosis Comments POCT LIPID PANEL Routine 08/02/2023 10:2 9 AM CDT Coronary artery disease involving sa[place] coronary artery of sa[place] heart without angina pectoris EGFR Routine 06/16/2022 10:03 AM HOUSE PIPING INSPECTOR HEMOGLOBIN A1C Routine 05/30/2022 12:59 PM HOUSE PIPING INSPECTOR Preop testing Type 2 diabetes mellitus with [...] Final Result * eGFR (06/16/2022 10:03 AM HOUSE PIPING INSPECTOR) eGFR 67 mL/min/1. 73 m2 RYAN LUX [...] reviewed 2021. Blood 06/16/2022 10:0 3 AM HOUSE PIPING INSPECTOR 06/16/2022 10:03 AM HOUSE PIPING INSPECTOR Nicolás Arevalo MD LAB BLOOD ORDERABLES Final Res ult Performing Organization Address City/[facility] Co de Phone Number RYAN LUX [id number] [address] [facility] [place] [address] * Hemoglobin A1c (05/30/2022 12:59 PM HOUSE PIPING INSPECTOR) Hgb A1C 5.5 4.0 - 5.6 % RYAN LUX Estimated Average Glucose 111 mg/dL RYAN LUX Comment: The ADA recommends reporting an estimated Average Glucose (eAG) with all Hemoglobin A1c results using the equation derived from a study of 507 normal and diabetic adults. Minority populations were underrepresented and children were not included. (Diabetes Care 31:8847-4854, 2008). The eAG is not equivalent to a fasting glucose. Blood 05/30/2022 12:5 9 PM HOUSE PIPING INSPECTOR 05/30/2022 1:03 PM HOUSE PIPING INSPECTOR Nicolás Arevalo MD LAB BLOOD ORDERABLES Final Res ult Performing Organization Address [facility] Co de Phone Number RYAN LUX [phone] [facility] [place] [address] from Last 3 Months or Most Recently Relevant to Health Maintenance Insurance MEDICARE [place] [id number] [facility] MEDICARE [place] [phone] MEDICARE [facility] [place] [phone] MEDICARE [facility] MEDICARE SUPPLEMENT Advance Directives For more information, please contact: [phone] * Full Code (Latest Code Status on File) Date Activated Date Inactivated Comments 06/05/2022 2:49 PM 06/16/2022 5:28 PM Care Teams Java Application Engineer Relationship Specialty Start Date End Date Leticia Handley MD [address] [place], [place] [id number] PCP - General Internal Medicine 05/08/23
--- OUTSIDE RECORDS SUMMARY | 2025-02-10 11:43 | XMS_ITS | Encounter Summary ---
Author Organization [facility] Address [address] [place] [address] Care Team Providers Care Cooling Room Attendant Name Role Phone Leticia Handley MD Primary Care Provider Nilesh Mojica DO Unavailable Enoc Sheridan PA-C Unavailable Encounter Details Date Type Department Care Team (Late st Contact Info) Description 12/06/2016 [facility] Outpatient Visit [facility] Orthopedics - Radiology [address] [place] [address] Nilesh Mojica [facility] Medical [address] [address] Social History Tobacco Use Types [...] st Contact Info) Description 03/09/2025 10:40 AM PROP CUTTER Office Visit [facility] Health Orthopedics [address], [address] [address] Nilesh Mojica [address] [address] documented as of this encounter Visit Diagnoses Not on filedocumented in this encounter Care Teams Cooling Room Attendant Relationship Specialty Start Date End Date Leticia Handley MD PCP - General Internal Medicine 12/06/16 Nilesh Mojica DO Orthopedic Surgery 12/06/16 Enoc Sheridan PA-C [address] [place] [address] Physician It Operations Analyst Physician It Operations Analyst 03/13/17 documented as of this encounter
--- OUTSIDE RECORDS SUMMARY | 2025-02-10 11:43 | XMS_ITS | Encounter Summary ---
Author Organization [facility] Address [address] [place] [address] Care Team Providers Care Stringed Instrument Assembler Name Role Phone Leticia Handley MD Primary Care Provider [phone] Karrie Mcgregor DO Primary Care Provide r Leticia Handley MD Primary Care Provider [phone] Encounter Details Date Type Department Care Team (Late st Contact Info) Description 08/15/2016 Orders Only [facility] ProviderNila MD [address] [place] [address] Social History Tobacco Use Types Packs/Day Years Used Date Smoking Tobacco: Never Alcohol Use Standard Drinks/Week Comments Yes 0 (1 standard drink = 0.6 oz pur e alcohol) Sex and Gender Information Value Date Recorded Sex Assigned at Not on file Legal Sex Male 12:29 AM PATIENT'S LIBRARIAN Gender Identity Not on file Sexual Orientation [...] on filedocumented in this encounter Care Teams Stringed Instrument Assembler Relationship Specialty Start Date End Date Leticia Handley MD [address] [place] [address] PCP - General 08/11/16 03/21/23 Karrie Mcgregor DO [address] [place] [address] PCP - General Psychiatry 03/22/23 05/07/23 Leticia Handley MD [address] [place] [address] PCP - General Internal Medicine 05/08/23 documented as of this encounter
--- OUTSIDE RECORDS SUMMARY | 2025-02-10 11:43 | XMS_ITS | Encounter Summary ---
Author Organization [facility] Address [address] [place] [address] Care Team Providers Care Snowmobile Mechanic Name Role Phone Leticia Handley MD Primary Care Provider [phone] Karrie Mcgregor DO Primary Care Provide r Leticia Handley MD Primary Care Provider + [phone] Encounter Details Date Type Department Care Team (Late st Contact Info) Description 04/22/2019 Telephone [facility] Radiology [address] [place] [address] Steff Shah, RT Social History Tobacco Use Types Packs/Day Years Used Date Smoking Tobacco: Never Smokeless Tobacco: Never Alcohol Use Standard Drinks/Week Comments Yes 0 (1 standard drink = 0.6 oz pur e alcohol) Sex and Gender Information Value Date Recorded Sex Assigned at Not on file Legal Sex Male 12:29 AM CLAIMS VICE PRESIDENT Gender Identity Not on file Sexual Orientation Not on file documented as of this encounter Plan of Treatment Not on file documented as of this encounter Visit Diagnoses Not on filedocumented in this encounter Care Teams Snowmobile Mechanic Relationship Specialty Start Date End Date Leticia Handley MD [address] [place] [address] PCP - General 08/11/16 03/21/23 Karrie Mcgregor DO [address] [place] [address] PCP - General Psychiatry 03/22/23 05/07/23 Leticia Handley MD [address] [place] [address] PCP - General Internal Medicine 05/08/23 documented as of this encounter
[2025-02-10 11:52] LABS: Thyroid Stimulating Hormone 1.920 uIU/mL (0.465-4.680)
== END 2025-02-10 10:38 | disposition home or self-care (01) ==
LOC: CHSLAB 10:39
PROVIDERS: PCP Internal Medicine; Visit Provider Internal Medicine
DX: I25.10 Atherosclerotic heart disease of native coronary artery without angina pectoris (principal); R53.82 Chronic fatigue, unspecified; E03.4 Atrophy of thyroid (acquired); I11.0 Hypertensive heart disease with heart failure
CPT/HCPCS: 36415; 80053; 81003; 82150; 83605; 83690; 83880; 84439; 84443; 84481; 85027; 85652; 86140